=== PATIENT | male | born 1940 | race Caucasian/White ===

== ENCOUNTER → 2016-06-12 | Outpatient (CLI) | payer OTHER, BC ==
[~2016-06-12] MED LIST: AMOX500C3 PO; ASPEC81 PO; CARV3.122 PO; FLV400 PO; LISI-729 PO; LPT/40 PO; OXYB5TAB74 PO
[2016-06-12 12:15] LABS: HEMATOCRIT 43.2 % (42-52); MEAN CELL VOLUME 88.9 fL (80-100); MEAN CORPUSCULAR HEMOGLOBIN 30.7 pg (25-34); MEAN CORPUSCULAR HGB CONC 34.5 g/dl (32-36); MEAN PLATELET VOLUME 11.6 fL (7.4-10.4); PLATELET COUNT 182 K/uL (130-400); RED BLOOD COUNT 4.86 M/uL (4.7-6.1); WHITE BLOOD COUNT 5.73 K/uL (4.8-10.8)
[2016-06-12 12:29] LABS: ALT/SGPT 42 U/L (12-78); BLOOD UREA NITROGEN 15 mg/dl (7-18); BUN/CREATININE RATIO 18.2 (10-20); CALCIUM 8.5 mg/dl (8.5-10.1); CARBON DIOXIDE 27 mmol/L (21-32); CHLORIDE 107 mmol/L (98-107); CHOLESTEROL 149 mg/dl (0-200); CREATININE 0.83 mg/dl (0.60-1.40); GLUCOSE 104 mg/dl (70-99); POTASSIUM 4.2 mmol/L (3.5-5.1); SODIUM 142 mmol/L (136-145); TRIGLYCERIDES 77 mg/dl (0-150); VERY LOW DENSITY LIPOPROT CALC 15 mg/dl
[2016-06-12 12:39] LABS: ALB/GLOB RATIO 0.9 (0.9-2); ALKALINE PHOSPHATASE 106 U/L (45-117); AST/SGOT 31 U/L (15-37); HDL CHOLESTEROL 50 mg/dl; LDL CHOLESTEROL CALCULATED 84 mg/dl; THYROID STIMULATING HORMONE 0.984 uIu/ml (0.300-4.500)
[2016-06-12 13:37] LABS: LYME DISEASE AB IGG NEG (NEG); LYME DISEASE AB IGM NEG (NEG)
[2016-06-12 13:49] LABS: ESTIMATED AVERAGE GLUCOSE 123 mg/dl; HA1C FLAG Normal (Normal)
--- NOTE | 2016-06-16 13:37 | CODING QUERY MEDICAL NECESSITY ---
SUPPORTING DIAGNOSIS NEEDED A supporting diagnosis is required for the test/procedure performed on this patient in order for us to be reimbursed by the patient's insurance. Please provide a supporting diagnosis for the following test/procedure listed below next to the test name along with your signature. *If there is no additional diagnosis for this patient that would support the following test/procedure please document that below next to the test/procedure. Test(s)/Procedure(s) that require a supporting diagnosis: * GLYCATED HEMOGLOBIN DIAGNOSIS: * DOS: 06/12/16 Provider Signature: Date: Thank you Delilah Silver Health Information Management Once completed, please kindly fax back to [phone] For questions please call [phone]
== END | disposition home or self-care (01) ==
LOC: C.LAB1850 10:52
PROVIDERS: ATTEND Family Medicine
DX: I25.10 Atherosclerotic heart disease of native coronary artery without angina pectoris (principal); I10 Essential (primary) hypertension; E78.00 Pure hypercholesterolemia, unspecified; R73.03 Prediabetes; R20.9 Unspecified disturbances of skin sensation

== ENCOUNTER → 2016-07-31 | Outpatient (CLI) | payer OTHER, BC ==
[~2016-07-31] MED LIST changes: +DTR/5 PO; -OXYB5TAB74 PO
== END | disposition home or self-care (01) ==
LOC: C.LAB1850 14:20
PROVIDERS: ATTEND Urology
DX: C61 Malignant neoplasm of prostate (principal)

== ENCOUNTER → 2016-10-24 | Outpatient (CLI) | payer OTHER, BC ==
[2016-10-20 17:40] LABS: BLOOD UREA NITROGEN 25 mg/dl (7-18)
[~2016-10-24] MED LIST changes: -DTR/5 PO; +GADAVIST IV PRN; +OXYB5TAB74 PO
--- NOTE | 2016-10-24 16:47 | DIAGNOSTIC IMAGING REPORT ---
MRI OF THE CERVICAL SPINE WITH AND WITHOUT CONTRAST CLINICAL HISTORY: Right-sided cervical radiculopathy. COMPARISON: Cervical spine radiographs May 24, 2012 TECHNIQUE: Utilizing a 1.5 Zora magnet and dedicated coil, multiplanar, multiecho imaging of the cervical spine was performed before and after intravenous administration of 10 of Gadavist. FINDINGS: Alignment of the cervical spine is anatomic. Vertebral body heights are patent. There is no suspicious marrow replacement. Cervical cord signal and caliber are normal. There is no intracanalicular mass or fluid collection. Note is made of several T1 and T2 hyperintense masses adjacent to the left shoulder which likely reflect lipomas. However, these are partially imaged on this examination. One lesion measures at least 6.4 x 3.8 cm. These contain thin septations. C2-C3: The central canal is patent. There is moderate left and mild right neural foraminal stenosis. C3-C4: There is disc bulge with ligamentous hypertrophy and facet arthrosis. There is moderate narrowing of the central canal. There is severe narrowing of both neural foramen. C4-C5: Central canal is patent. There is moderate right neural foraminal stenosis. There is mild left neural foraminal stenosis. C5-C6: There is minimal disc bulge. Central canal is patent. There are severe bilateral neural foraminal stenosis. C6-C7: Central canal is patent there is severe left and moderate right neural foraminal stenosis. C7-T1: Central canal and neural foramen are patent. IMPRESSION: 1. Moderate central canal stenosis at C3-C4 due to disc bulge, ligamentous hypertrophy and facet arthrosis. No cervical cord signal abnormality. 2. Severe multilevel neural foraminal stenosis due to facet arthrosis and uncovertebral hypertrophy, as detailed above. 3. 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 Electronically signed by: Migel Dalton M.D. 10/24/2016 4:46 PM Dictated Date/Time: 10/24/2016 4:08 PM
== END | disposition home or self-care (01) ==
LOC: C.MRI 13:57
PROVIDERS: ATTEND Psychiatry & Neurology Neurology
DX: M54.12 Radiculopathy, cervical region (principal)

== ENCOUNTER → 2016-12-17 | Outpatient (CLI) | payer OTHER, BC ==
[~2016-12-17] MED LIST changes: -GADAVIST IV PRN
[2016-12-17 12:12] LABS: BASO % 0.4 %; BASO ABS # 0.02 K/uL (0-0.2); COMPLETE YES; EOS % 3.1 %; HEMATOCRIT 44.2 % (42-52); IG% 0.2 %; LYMPH % 31.3 %; LYMPH ABS # 1.71 K/uL (1.2-3.4); MEAN CELL VOLUME 91.1 fL (80-100); MEAN CORPUSCULAR HEMOGLOBIN 31.3 pg (25-34); MEAN CORPUSCULAR HGB CONC 34.4 g/dl (32-36); MEAN PLATELET VOLUME 11.5 fL (7.4-10.4); MONO % 11.3 %; NEUT % 53.7 %; PLATELET COUNT 166 K/uL (130-400); RED BLOOD COUNT 4.85 M/uL (4.7-6.1); WHITE BLOOD COUNT 5.47 K/uL (4.8-10.8)
[2016-12-17 12:27] LABS: ALT/SGPT 40 U/L (12-78); BLOOD UREA NITROGEN 28 mg/dl (7-18); BUN/CREATININE RATIO 32.1 (10-20); CALCIUM 8.7 mg/dl (8.5-10.1); CARBON DIOXIDE 29 mmol/L (21-32); CHLORIDE 106 mmol/L (98-107); CHOLESTEROL 160 mg/dl (0-200); CREATININE 0.86 mg/dl (0.60-1.40); GLUCOSE 97 mg/dl (70-99); POTASSIUM 4.4 mmol/L (3.5-5.1); SODIUM 139 mmol/L (136-145); TRIGLYCERIDES 64 mg/dl (0-150); VERY LOW DENSITY LIPOPROT CALC 13 mg/dl
[2016-12-17 12:31] LABS: ALKALINE PHOSPHATASE 100 U/L (45-117); AST/SGOT 29 U/L (15-37); CHOLESTEROL/HDL RATIO 2.7; HDL CHOLESTEROL 59 mg/dl; LDL CHOLESTEROL CALCULATED 88 mg/dl
[2016-12-17 12:43] LABS: ESTIMATED AVERAGE GLUCOSE 123 mg/dl; HA1C FLAG Normal (Normal)
== END | disposition home or self-care (01) ==
LOC: C.LAB1850 10:59
PROVIDERS: ATTEND Nurse Practitioner Family
DX: I25.10 Atherosclerotic heart disease of native coronary artery without angina pectoris (principal); E78.00 Pure hypercholesterolemia, unspecified; I10 Essential (primary) hypertension; R73.03 Prediabetes

== ENCOUNTER → 2017-02-24 | Outpatient (CLI) | payer OTHER, BC ==
[2016-03-04 13:38] VITALS: BP 157/97; PULSE 50
[~2017-02-24] MED LIST changes: +DTR/5 PO; -OXYB5TAB74 PO
[2017-02-24 13:53] VITALS: BP 137/76; PULSE 55; TEMP 37; O2SAT 97
--- NOTE | 2017-02-24 15:05 | Radiation Oncology Follow-Up ---
Radiation Oncology Follow-Up Date of Visit Feb 24, 2017. 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 He gave an AUA score of 6. Last year he gave a score of 15. He does not take the Ditropan on a regular basis. He states at times he will have occasional urgency. He'll take the medication that will resolve and then she'll stop the medication. He completed and expanded prostate cancer index composite for clinical practice and gave a score of 4 of 12 in urinary incontinence symptoms. He gave a score of 3 of 12 urinary irritation symptoms. He gave a score of 0 of 12 and bowel symptoms. He did not complete the sexual symptoms. He states that this is not a problem. We reviewed the questions about hot flashes. He does not have hot flashes. He does have some mild feeling of depression at times. Any has some mild lack of energy. His total was 9 of 48. He stated he has district plan available should he need it. He did not want a prescription refill today. We reviewed his PSAs which have been excellent. His last PSA was on 07/31/2016. In that was 0.010. Allergies Coded Allergies: No Known Allergies (Verified Allergy, Unknown, NONE, 06/02/08) Home Medications Scheduled Amoxicillin (Amoxil), 1 CAP PO BID Aspirin Enteric Coated (Ecotrin Or Generic *), 81 MG PO DAILY Atorvastatin (Lipitor), 80 MG PO DAILY Carvedilol (Coreg), 3.125 MG PO BID Folic Acid (Folvite *), 1,600 MCG PO DAILY Lisinopril (Prinivil), 20 MG PO DAILY Oxybutynin Chloride (Ditropan), 1 TAB PO BID Review of Systems Gastrointestinal: Symptoms: WNL GI Comments: Takes metamucil; Oral: Symptoms: No Problems Other Oral Symptoms: patient bites the sides of his mouth at times which causes sores Respiratory: Symptoms: WNL, SOB At Rest Respiratory Comments: SHAW caused by heart issues - had aorta replaced Other Respiratory: SOB at rest comes and goes - chronic Urinary: Symptoms: WNL Comments: See AUA & EPIC - goes on and off ditropan Skin: Symptoms: No Problems Physical Exam Vital Signs Date Time Temp Pulse Resp B/P (MAP) Pulse Ox O2 Delivery O2 Flow Rate FiO2 02/24/17 13:53 37.0 55 20 137/76 97 Fatigue: None General Appearance: no apparent distress Eyes: normal inspection, EOMI ENT: normal ENT inspection, hearing grossly normal Respiratory/Chest: lungs clear, no respiratory distress, no accessory muscle use Cardiovascular: regular rate, rhythm, no gallop, + systolic murmur (heard best at the aortic area 2/6) Abdomen: non tender, soft Anal / Rectum: Mild external hemorrhoids. No rectal masses no rectal bleeding. No nodules of the prostate. Extremities: no pedal edema Neurologic/Psychiatric: no motor/sensory deficits, alert Skin: warm/dry Lymphatic: no adenopathy Pain Management Side: Bilateral Pain Location: None Patient Preferred Pain Scale: 0 - 10 Laboratory Studies Test 12/17/16 11:14 White Blood Count 5.47 K/uL (4.8-10.8) Red Blood Count 4.85 M/uL (4.7-6.1) Hemoglobin 15.2 g/dL (14.0-18.0) Hematocrit 44.2 % (42-52) Mean Corpuscular Volume 91.1 fL (80-100) Mean Corpuscular Hemoglobin 31.3 pg (25-34) Mean Corpuscular Hemoglobin Concent 34.4 g/dl (32-36) Platelet Count 166 K/uL (130-400) Mean Platelet Volume 11.5 fL (7.4-10.4) Neutrophils (%) (Auto) 53.7 % Lymphocytes (%) (Auto) 31.3 % Monocytes (%) (Auto) 11.3 % Eosinophils (%) (Auto) 3.1 % Basophils (%) (Auto) 0.4 % Neutrophils # (Auto) 2.94 K/uL (1.4-6.5) Lymphocytes # (Auto) 1.71 K/uL (1.2-3.4) Monocytes # (Auto) 0.62 K/uL (0.11-0.59) Eosinophils # (Auto) 0.17 K/uL (0-0.5) Basophils # (Auto) 0.02 K/uL (0-0.2) RDW Standard Deviation 48.9 fL (36.4-46.3) RDW Coefficient of Variation 14.5 % (11.5-14.5) Immature Granulocyte % (Auto) 0.2 % Immature Granulocyte # (Auto) 0.01 K/uL (0.00-0.02) Sodium Level 139 mmol/L (136-145) Potassium Level 4.4 mmol/L (3.5-5.1) Chloride Level 106 mmol/L (98-107) Carbon Dioxide Level 29 mmol/L (21-32) Anion Gap 4.0 mmol/L (3-11) Blood Urea Nitrogen 28 mg/dl (7-18) Creatinine 0.86 mg/dl (0.60-1.40) Estimated GFR () 96.3 Estimated GFR (Non- 83.1 BUN/Creatinine Ratio 32.1 (10-20) Random Glucose 97 mg/dl (70-99) Estimated Average Glucose 123 mg/dl Hemoglobin A1c 5.9 % (4.5-5.6) Calcium Level 8.7 mg/dl (8.5-10.1) Total Bilirubin 0.7 mg/dl (0.2-1) Aspartate Amino Transferase (AST) 29 U/L (15-37) Alanine Aminotransferase (ALT) 40 U/L (12-78) Alkaline Phosphatase 100 U/L (45-117) Total Protein 7.0 gm/dl (6.4-8.2) Albumin 3.5 gm/dl (3.4-5.0) Globulin 3.5 gm/dl (2.5-4.0) Albumin/Globulin Ratio 1.0 (0.9-2) Triglycerides Level 64 mg/dl (0-150) Cholesterol Level 160 mg/dl (0-200) HDL Cholesterol 59 mg/dl LDL Cholesterol, Calculated 88 mg/dl VLDL Cholesterol, Calculated 13 mg/dl Cholesterol/HDL Ratio 2.7 Assessment & Plan Plan: He'll be due for recheck PSA in July. An order was given to have this performed.. He was unsure as to a follow-up appointment with Dr. Jones. This was very likely occur in July. We asked him to return to our office in 1 year. He may call if he has any questions or concerns in the interim. I also asked him to call if he wanted a refill on the Ditropan which she has been taking intermittently. Total Time In Follow-Up I spent 20 minutes speaking to the patient performing examination. I spent 15 minutes reviewing information and completing this note. Copy To Juan Manuel Early III, CRNP; Pancho Jones MD
== END | disposition home or self-care (01) ==
LOC: C.ONC 13:39
PROVIDERS: ATTEND Physician Assistant Medical
DX: Z08 Encounter for follow-up examination after completed treatment for malignant neoplasm (principal); Z92.3 Personal history of irradiation; Z85.46 Personal history of malignant neoplasm of prostate

== ENCOUNTER → 2017-06-22 | Outpatient (CLI) | payer OTHER, BC ==
[2017-06-22 15:54] LABS: BASO % 0.7 %; BASO ABS # 0.04 K/uL (0-0.2); EOS % 4.3 %; EOS ABS # 0.25 K/uL (0-0.5); HEMATOCRIT 41.9 % (42-52); HEMOGLOBIN 14.1 g/dL (14.0-18.0); IG# 0.01 K/uL (0.00-0.02); LYMPH % 34.1 %; LYMPH ABS # 1.98 K/uL (1.2-3.4); MEAN CELL VOLUME 90.5 fL (80-100); MEAN CORPUSCULAR HEMOGLOBIN 30.5 pg (25-34); MEAN CORPUSCULAR HGB CONC 33.7 g/dl (32-36); MEAN PLATELET VOLUME 10.7 fL (7.4-10.4); MONO % 8.8 %; MONO ABS # 0.51 K/uL (0.11-0.59); NEUT % 51.9 %; NEUT ABS # 3.01 K/uL (1.4-6.5); PLATELET COUNT 212 K/uL (130-400); RED CELL DISTRIBUTION WIDTH CV 14.4 % (11.5-14.5); RED CELL DISTRIBUTION WIDTH SD 47.6 fL (36.4-46.3)
[2017-06-22 16:25] LABS: ALBUMIN 3.4 gm/dl (3.4-5.0); ALT/SGPT 29 U/L (12-78); BLOOD UREA NITROGEN 22 mg/dl (7-18); CALCIUM 8.8 mg/dl (8.5-10.1); CARBON DIOXIDE 32 mmol/L (21-32); CREATININE 0.84 mg/dl (0.60-1.40); GLUCOSE 88 mg/dl (70-99); POTASSIUM 4.4 mmol/L (3.5-5.1); SODIUM 139 mmol/L (136-145)
[2017-06-22 16:28] LABS: ALKALINE PHOSPHATASE 101 U/L (45-117); AST/SGOT 20 U/L (15-37)
== END | disposition home or self-care (01) ==
LOC: C.LAB1850 14:46
PROVIDERS: ATTEND Nurse Practitioner Family
DX: R10.32 Left lower quadrant pain (principal)

== ENCOUNTER → 2017-06-25 | Outpatient (CLI) | payer OTHER, BC ==
[~2017-06-25] MED LIST changes: +OPTIRAY 320 IV PRN
--- NOTE | 2017-06-25 14:47 | DIAGNOSTIC IMAGING REPORT ---
ABD/PELVIS IV AND ORAL CONT CLINICAL HISTORY: 76 years-old Male presenting with R10.32 Abdominal pain, acute, left lower quadrant pain. TECHNIQUE: Multidetector CT of the abdomen and pelvis was performed after the administration of oral and intravenous contrast. IV contrast: 94 mL of Optiray 320. A dose lowering technique was used consistent with the principles of ALARA (as low as reasonably achievable). COMPARISON: None. CT DOSE (mGy.cm): The estimated cumulative dose is 1058.51 mGycm. FINDINGS: Sack Sorter topogram: Median sternotomy wires and prosthetic aortic valve noted. Brachytherapy seeds in the prostate. Lung bases: Minimal basilar opacities, likely atelectasis. Multichamber enlargement of the heart. Aortic valve replacement. No pericardial or pleural effusion. Liver: Congenital hypoplasia of the medial segments of the left hepatic lobe. Biliary: No intrahepatic or extrahepatic biliary ductal dilatation. Gallbladder contains gallstones. Suggestion of gallbladder wall thickening without evidence of distention or pericholecystic inflammatory change, possibly adenomyomatosis. Pancreas: Moderate parenchymal atrophy. Spleen: Normal. Splenule noted. Adrenal glands: Normal. Kidneys and ureters: Multiple parapelvic cysts noted bilaterally. Minimal nonspecific perinephric fat stranding. Renal parenchyma normal. Nonobstructing punctate calculus in the upper pole of the right kidney (series 3 image 174). No hydronephrosis. Ureters normal. Bladder: Significant irregular bladder wall thickening present most pronounced along the dome. Diverticula noted. Pelvic organs: Brachytherapy seeds in the prostate. Bowel: Diverticulosis of the descending and sigmoid colon. Minimal inflammatory change at the level of the junction between the descending and sigmoid colon suggesting early diverticulitis. The appendix is normal. No bowel obstruction. Peritoneal cavity: No free fluid or intraperitoneal gas. Lymph nodes: No enlarged lymph nodes in the abdomen or pelvis. Vasculature: Atherosclerosis of the normal caliber abdominal aorta. IVC patent. Abdominal wall: Fluid noted at the internal ring of the left inguinal canal likely indicating the presence of an encysted hydrocele. Nonspecific subcutaneous edema in the lumbar region. Musculoskeletal: Degenerative changes of the spine. Degenerative changes of the sacroiliac joints and hips also noted. IMPRESSION: 1. Minimal pericolonic fat infiltration at the junction of the descending and sigmoid colon in the setting of diverticulosis raises concern for early diverticulitis. No abscess or CT evidence of anuradha perforation. No bowel obstruction. 2. Cholelithiasis. 3. Nonobstructing punctate right renal calculus. 4. Significant irregularity of the bladder dome, which could relate to chronic outlet obstruction, infectious or post radiation cystitis, or less likely neoplasm. Correlate with urinalysis. Consider urologic consultation as appropriate. Electronically signed by: Ant Rice M.D. 06/25/2017 2:46 PM Dictated Date/Time: 06/25/2017 2:37 PM
== END | disposition home or self-care (01) ==
LOC: C.CTS 13:52
PROVIDERS: ATTEND Nurse Practitioner Family
DX: R10.32 Left lower quadrant pain (principal); K80.20 Calculus of gallbladder without cholecystitis without obstruction; N20.0 Calculus of kidney; R93.3 Abnormal findings on diagnostic imaging of other parts of digestive tract; R93.41 Abnormal radiologic findings on diagnostic imaging of renal pelvis, ureter, or bladder

== ENCOUNTER → 2017-06-30 | Outpatient (CLI) | payer OTHER, BC ==
[~2017-06-30] MED LIST changes: -OPTIRAY 320 IV PRN
== END | disposition home or self-care (01) ==
LOC: C.PATHSPEC 17:30
PROVIDERS: ATTEND Urology
DX: N32.9 Bladder disorder, unspecified (principal)

== ENCOUNTER → 2017-07-06 | Outpatient (CLI) | payer OTHER, BC | END | disposition home or self-care (01) | LOC: C.LAB1850 11:53 | PROVIDERS: ATTEND Urology | DX: C61 Malignant neoplasm of prostate (principal); N32.9 Bladder disorder, unspecified ==

== ENCOUNTER 2021-11-07 21:17 | Inpatient (IN) ==
[2021-11-07 21:54] LABS: Basophils # (auto) 0.03 K/uL (0-0.2); Basophils % (auto) 0.2 %; Eosinophils # (auto) 0.01 K/uL (0-0.50); Eosinophils % (auto) 0.1 %; Hematocrit (blood only) 41.9 % (40.1-51.0); Hemoglobin 13.9 g/dl (14.0-18.0); Immature Granulocytes # (auto) 0.06 K/uL (0.00-0.02); Immature Granulocytes % (auto) 0.4 %; Lymphocytes # (auto) 0.79 K/uL (1.2-3.4); Lymphocytes % (auto) 5.8 %; Mean Corpuscular Hgb Conc 33.2 g/dL (32.0-36.0); Mean Corpuscular Volume 90.5 fL (80.0-100.0); Mean Platelet Volume 10.9 fL (9.4-12.4); Monocytes # (auto) 0.68 K/uL (0.24-0.82); Neutrophils # (auto) 12.09 K/uL (1.4-6.5); Neutrophils % (auto) 88.5 %; Platelet Count 197 K/uL (130-400); RDW Standard Deviation 49.2 fL (36.4-46.3); Red Blood Count 4.63 M/uL (4.63-6.08); White Blood Count 13.66 K/ul (4.8-10.8)
--- NOTE | 2021-11-07 22:11 | Emergency Department Note ---
Impression & Plan Acute pancreatitis, Abdominal pain, Choledocholithiasis, Transaminitis ED Provider Note NAME: TROY TOSCANO AGE: 80 SEX: M : 1940 ARRIVES VIA: Ambulance INFORMANT: Patient ED PROVIDER(S): Francisco Engle DO CHIEF COMPLAINT: abdominal pain HPI: Patient is a an 80-year-old male with past medical history of prostate cancer, irregular heart rate, hypertension, hyperlipidemia, diabetes, depression, CAD, aortic stenosis for abdominal pain. He notes pain started yesterday. It is in the right mid to right lower abdomen. Patient with nausea and 3 episodes of vomiting. No dysuria, urgency, or frequency. Last bowel movement was within the past 24 hours. Eating and drinking does not change the pain. Twisting or turning or bending does not either. His pain has nearly abated at this point. He has no pain is always or not pressing on his abdomen. ROS: See above HPI for pertinent positives & negatives. A total of 10 systems reviewed and were otherwise negative. PAST MEDICAL HISTORY:See Below PAST SURGICAL HISTORY:See Below FAMILY HISTORY:See Below SOCIAL HISTORY:See Below HOME MEDICATIONS:See Below ALLERGIES:See Below VITALS:See Below PHYSICAL EXAMINATION: GENERAL: Sitting up in bed, alert, well appearing, well nourished, no distress, non-toxic EYE EXAM: normal conjunctiva. OROPHARYNX: mucous membranes are moist NECK: supple, no nuchal rigidity, no adenopathy, non-tender LUNGS: Clear to auscultation. Normal chest wall mechanics HEART: no murmurs, S1 normal and S2 normal ABDOMEN: abdomen soft, tender palpation right mid to lower abdomen, normo-active bowel sounds, no masses, no rebound or guarding. UPPER EXTREMITIES: upper extremities are grossly normal. LOWER EXTREMITIES: No pitting edema. NEURO EXAM: Normal sensorium, cranial nerves II-XII grossly intact, normal speech, no gross weakness of arms, no gross weakness of legs. MEDICAL DECISION MAKING: Patient is an 80-year-old male who presents ER for above-stated complaint. IV was established blood was obtained. Labs show mild leukocytosis of 13,000. No significant anemia. BMP with a creatinine 1.4. T bili significantly elevated 6.3. Transaminitis in the 100s. Lipase elevated significantly at 1400. UA was unremarkable. CT abdomen pelvis showed distended gallbladder but no other acute pathology. Based on the elevated bilirubin and transaminitis do favor that this likely choledocholithiasis causing pancreatitis. Patient has no pain again at this time. He was given IV antibiotics updated bedside discussed with Bridgett Petersen for further evaluation. Ultrasound was ordered and pending upon admission. GI and surgery was not consulted CT abdomen pelvis was slowly read as cholelithiasis with suggestion of slight wall thickening of the gallbladder. Triage Nursing notes reviewed. Limited review of prior medical records performed Vital Signs: reviewed and remarkable for HTN Differential diagnosis: Differential diagnoses includes but is not limited to gastritis, peptic ulcer disease, GERD, gallbladder disease, pancreatitis, small bowel obstruction, acute coronary syndrome, pericarditis, ischemic bowel, irritable bowel disease, irritable bowel syndrome, appendicitis, diverticulitis, malignancy, hernia, urinary tract infection, torsion, [/ectopic (if female)], perforation, trauma, infectious. ER treatment provided: See below Diagnostics interpreted by me: ECG: A. fib rate 89 Left axis Has depressions in the high lateral leads Septal Q waves QTC 484 Cardiac Monitoring: An order was placed for continuous cardiac monitoring. The monitor shows a rate of 90 with sinus rhythm. Laboratory studies: As stated above and show below. Imaging studies: CT abdomen pelvis as described above Consultation(s): Discussed with Bridgett Petersen for further evaluation Procedures: none Critical Care: None Past Med/Surg History Medical History Cervical radiculopathy Difficulty reading due to visual problem Former smoker History of snuff use Hyperhomocystinemia Hypertension Hyperthyroidism Prediabetes Prostate cancer (~2006) Prostate cancer Pure hypercholesterolemia PVC (premature ventricular contraction) Surgical History H/O aortic valve repair H/O hernia repair Status post aortic valve replacement with bioprosthetic valve Family History Mother Heart disease Brother Cancer Lung cancer Unknown Prostate cancer Father Prostate cancer Denies family history of Colon cancer Ovarian cancer Myocardial infarction Breast cancer Social History Smoking Status: Former smoker Age Started Using Tobacco: 8; Age Quit Using Tobacco: 75; packs per day: 2.5; Second Hand Exposure: No; Hx Alcohol Use: No Hx Substance Use: No Preferred Language: Dutch Communication Ability: Effective Visual Impairment: No Limitations Hearing Ability: Use of Hearing Aid 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: No marital status: Single Current Living Situation: Alone current occupational status: retired How many Children do You have: 2 Feels Safe at Home: Yes Childhood Exposure to Second-Hand Smoke: Yes Dental Care, Regularly: No Physical Activity Frequency: Does not Exercise Seatbelt Use: never Sunscreen Use: No Do you think of yourself as: straight/heterosexual Assistive Devices: Glasses and Hearing Aid - Bilateral Allergies Allergies Allergy/AdvReac Type Severity Reaction Status Date / Time No Known Drug Allergies Allergy Unknown Verified 11/07/21 22:35 Home Meds Home Medications Medication Instructions Recorded Confirmed amoxicillin 500 mg tablet 2,000 mg PO ONCE PRN Prophylaxis 11/07/21 11/07/21 aspirin 81 mg tablet,delayed 81 mg PO QAM 11/07/21 11/07/21 release fluocinonide 0.05 % topical cream 1 applic topical BID PRN .rash 11/07/21 11/07/21 folic acid 400 mcg tablet 0.4 mg PO QAM 11/07/21 11/07/21 hydrochlorothiazide 25 mg tablet 25 mg PO QAM 11/07/21 11/07/21 pantoprazole 40 mg tablet,delayed 40 mg PO QAM 11/07/21 11/07/21 release (Protonix) Previous Rx's Medication Instructions Recorded atorvastatin 80 mg tablet 80 mg PO HS #90 tabs 02/19/21 bupropion HCl 150 mg tablet,12 hr 150 mg PO BID #180 ea 10/29/21 sustained-release lisinopril 20 mg tablet 20 mg PO BID #180 tabs 10/29/21 Results & Data (ED) Vital Signs Vital Signs - 24 hr 11/07/21 21:35 11/07/21 21:52 11/07/21 23:22 Temperature 36.7 C Temperature Source Oral Pulse Rate 87 Pulse Rate [Finger] 89 Respiratory Rate 20 18 Blood Pressure 142/99 H Blood Pressure [Right Arm] 150/104 H Blood Pressure Mean 113 Blood Pressure Mean [Right Arm] 119 Pulse Oximetry 96 92 93 Oxygen Delivery Method Room Air Room Air Sepsis Recent Fever Within 48 Hours No Sepsis New/Unexplained Change in Mental Status N/A Sepsis Action Taken by Nursing No Action Required Laboratory Data Result diagrams: 11/07/21 21:33 11/07/21 21:33 Lab Results 11/07/21 11/07/21 11/07/21 Range/Units 21:33 21:33 22:38 WBC 13.66 H (4.8-10.8) K/ul RBC 4.63 (4.63-6.08) M/uL Hgb 13.9 L (14.0-18.0) g/dl Hct 41.9 (40.1-51.0) % MCV 90.5 (80.0-100.0) fL MCH 30.0 (25.0-34.0) pg MCHC 33.2 (32.0-36.0) g/dL RDW Std Deviation 49.2 H (36.4-46.3) fL RDW Coeff of Yony 15.0 H (11.5-14.5) % Plt Count 197 (130-400) K/uL MPV 10.9 (9.4-12.4) fL Immature Gran % (Auto) 0.4 % Neut % (Auto) 88.5 % Lymph % (Auto) 5.8 % [place] % (Auto) 5.0 % Eos % (Auto) 0.1 % Baso % (Auto) 0.2 % Neut # (Auto) 12.09 H (1.4-6.5) K/uL Lymph # (Auto) 0.79 L (1.2-3.4) K/uL [place] # (Auto) 0.68 (0.24-0.82) K/uL Eos # (Auto) 0.01 (0-0.50) K/uL Baso # (Auto) 0.03 (0-0.2) K/uL Immature Gran # (Auto) 0.06 H (0.00-0.02) K/uL Sodium 139 (136-145) mmol/L Potassium 4.0 (3.5-5.1) mmol/L Chloride 102 (98-107) mmol/L Carbon Dioxide 29 (21-32) mmol/L Anion Gap 8 (3-11) BUN 33 H (6-23) mg/dl Creatinine 1.43 H (0.6-1.4) mg/dl Est Cr Clr Drug Dosing Not Reportable Est GFR ( Amer) 52.5 ml/min Est GFR (Non-Af Amer) 45.3 ml/min BUN/Creatinine Ratio 23.1 H (10-20) Glucose 111 H (70-99(Fasting)) mg/dl Calcium 9.3 (8.5-10.1) mg/dl Total Bilirubin 6.3 H (0.2-1.0) mg/dl AST 122 H (13-39) U/L ALT 173 H (7-52) U/L Alkaline Phosphatase 261 H (34-104) U/L Total Protein 7.7 (6.0-8.3) gm/dl Albumin 3.9 (3.4-5.0) gm/dl Globulin 3.8 (2.5-4.0) gm/dl Albumin/Globulin Ratio 1.0 (0.9-2) Lipase 1395 H (11-82) U/L Urine Color Dark Yellow Urine Appearance Clear (Clear) Urine pH 5.0 (4.5-7.5) Ur Specific [facility] 1.017 (1.000-1.030) Urine Protein Negative (Negative) Urine Glucose (UA) Negative (Negative) Urine Ketones Trace H (Negative) Urine Blood Trace H (Negative) Urine Nitrite Positive A (Negative) Urine Bilirubin 2+ H (Negative) Urine Urobilinogen Negative (Negative) Ur Leukocyte Esterase Negative (Negative) Urine WBC (Auto) 0 (0-5) /hpf Urine RBC (Auto) 0-4 (0-4) /hpf U Hyaline Cast (Auto) 1-5 (0-5) /lpf U Epithel Cells (Auto) 0-5 (0-5) /lpf Urine Bacteria (Auto) Negative (Negative) Administered Medications Discontinued Medications Piperacillin Sod/Tazobactam Sod (Zosyn) 4.5 gm in 120 mls @ 240 mls/hr IV NOW ONE Stop: 11/08/21 00:54 Last Admin: 11/08/21 00:56 Dose: 240 mls/hr Documented By: BALDOMERO Ioversol (Optiray 320 100ml) 94 ml IV ONCE ONE Stop: 11/07/21 22:38 Last Admin: 11/07/21 22:37 Dose: 94 ml Documented By: PIPPA Morphine Sulfate (Morphine Sulfate 2 Mg/Ml Carp) 1 mg IV NOW STA Stop: 11/08/21 00:46 Last Admin: 11/08/21 01:03 Dose: 1 mg Documented By: BALDOMERO Discharge Plan Visit Data Chief Complaint: Abdominal Pain Stated Complaint: Abdominal Pain ED Provider: Francisco Engle Discharge Problem: Acute pancreatitis, Abdominal pain, Choledocholithiasis, Transaminitis Forms Stand Alone Forms: [facility] Prescriptions Prescriptions: No Action atorvastatin 80 mg tablet 80 mg PO HS Qty: 90 3RF bupropion HCl 150 mg tablet sustained-release 12 hr 150 mg PO BID Qty: 180 2RF lisinopril 20 mg tablet 20 mg PO BID Qty: 180 1RF aspirin [Aspirin Low-Strength] 81 mg Tablet,Delayed Release (Dr/Ec) 81 mg PO QAM folic acid 400 mcg Tablet 0.4 mg PO QAM pantoprazole [Protonix] 40 mg tablet,delayed release (DR/EC) 40 mg PO QAM amoxicillin 500 mg tablet 2,000 mg PO ONCE PRN (Reason: Prophylaxis) Rx Instructions: take 1 hour before dental appointment hydrochlorothiazide 25 mg tablet 25 mg PO QAM fluocinonide 0.05 % Cream 1 applic TOPICAL BID PRN (Reason: .rash) Referrals Referrals: Juan Manuel Early III, CRNP [Primary Care Provider] -
[2021-11-07 22:18] LABS: Anion Gap 8 (3-11); BUN Creatinine Ratio 23.1 (10-20); Blood Urea Nitrogen 33 mg/dl (6-23); Calcium 9.3 mg/dl (8.5-10.1); Carbon Dioxide 29 mmol/L (21-32); Chloride 102 mmol/L (98-107); Est GFR (African American) 52.5 ml/min; Est GFR (Non-African American) 45.3 ml/min; Glucose 111 mg/dl (70-99(Fasting)); Sodium 139 mmol/L (136-145)
[2021-11-07 22:19] LABS: Alanine Aminotransferase 173 U/L (7-52); Albumin Level 3.9 gm/dl (3.4-5.0); Alkaline Phosphatase 261 U/L (34-104); Aspartate Aminotransferase 122 U/L (13-39); Bilirubin,Total 6.3 mg/dl (0.2-1.0); Globulin 3.8 gm/dl (2.5-4.0); Total Protein 7.7 gm/dl (6.0-8.3)
[2021-11-07 22:28] LABS: Lipase 1395 U/L (11-82)
[2021-11-07] MEDS ORDERED: OPTIRAY 320 100ml IV ONE (22:37)
[2021-11-07 22:56] LABS: Appearance Urine Clear (Clear); Bacteria Urine Automated Negative (Negative); Bilirubin Urine 2+ (Negative); Blood Urine Trace (Negative); Color Urine Dark Yellow; Epithelial Cell Urine Auto 0-5 /lpf (0-5); Glucose Urine UA Negative (Negative); Ketones Urine Trace (Negative); Leukocyte Esterase Urine Negative (Negative); Nitrite Urine Positive (Negative); Protein Urine Negative (Negative); RBC Urine Automated 0-4 /hpf (0-4); Specific Gravity Urine 1.017 (1.000-1.030); Urobilinogen Urine Negative (Negative); WBC Urine Automated 0 /hpf (0-5)
[2021-11-08] MEDS ORDERED: PIPERACILLIN/TAZOBACTAM 4.5 GM/120 ML BAG IV ONE (00:25)
[2021-11-08] MEDS ORDERED: MoRPHine SULFATE 2 MG/ML CARP IV STA (00:45)
--- NOTE | 2021-11-08 00:53 | History & Physical Report ---
Date of Service November 08, 2021 Assessment & Plan (1) Abdominal pain: Plan: 80-year-old male presenting with 2 days of severe abdominal pain. Patient afebrile, hemodynamically stable on exam. Nontoxic in appearance but appears to be uncomfortable. Labs are significant for elevated lipase of 1395 as well as abnormal LFTs in a mixed patternpredominantly obstructive (alk phos = 261, T bili = 6.3, AST = 122 and ALT = 173). CT of the abdomen results above. Cholelithiasis with slight gallbladder wall thickening. -Mid to medical Pain control with morphine as needed Nausea control Zofran as needed Zosyn Repeat LFTs in the morning Check gallbladder ultrasound GI consult regarding possible ERCP General surgery consultation pending results of gallbladder ultrasound (2) Acute pancreatitis: Plan: Patient with elevation of lipase 1395. Most likely secondary to gallstone pancreatitis Pain control as above with morphine, Zofran as needed for nausea Normal triglycerides recently LR at 200 mL/h x 2 L (3) Hypertension: Plan: Chronic. Blood pressure mildly elevated at present 150/104 Hold lisinopril in setting of mildly elevated creatinine Hold hydrochlorothiazide Continue to monitor (4) Coronary artery disease: Plan: Patient with nonobstructive CAD. He follows with cardiology. Denies chest pain, palpitations. He does appear to have a left bundle branch on EKG Check troponincheck 2D echo We will hold aspirin for now Hold atorvastatin Hold lisinopril Consider cardiology consultation (5) Left bundle branch block: Plan: Patient denies chest pain Check troponin Check 2D echo (6) Pure hypercholesterolemia: Plan: Chronic. Holding atorvastatin for now History of Present Illness Chief Complaint: Abdominal pain Primary Care Provider: Juan Manuel Early III, LIZ Kermit Rogers is a pleasant 80-year-old male with history of hypertension, hyperlipidemia, hypothyroidism presenting with 1 day of abdominal pain. Patient reports the pain is severe located in the midepigastric area as well as diffusely across the lower abdomen. The pain began yesterday and resolved after several hours. Then began again today after a meal. Patient thought possibly he had eaten something questionable therefore self-induced vomiting x3 episodes with no improvement in abdominal pain. Patient denies fever, chills, chest pa in, cough, shortness of breath. Denies nausea or diarrhea. He does have baseline dyspnea on exertion which he states is stable. Denies change in color of his skin or eyes. Does note that his urine today was very dark and tea colored. He is unaware of any liver or gallbladder disease. Has never had pancreatitis. In the ER he is afebrile, hemodynamic stable, no acute distress Allergies Allergy/AdvReac Type Severity Reaction Status Date / Time No Known Drug Allergies Allergy Unknown Verified 11/07/21 22:35 Home Medications Medication Instructions Recorded Confirmed Type atorvastatin 80 mg tablet 80 mg PO HS #90 tabs 02/19/21 11/07/21 Rx bupropion HCl 150 mg tablet,12 hr 150 mg PO BID #180 ea 10/29/21 11/07/21 Rx sustained-release lisinopril 20 mg tablet 20 mg PO BID #180 tabs 10/29/21 11/07/21 Rx amoxicillin 500 mg tablet 2,000 mg PO ONCE PRN Prophylaxis 11/07/21 11/07/21 History aspirin 81 mg tablet,delayed 81 mg PO QAM 11/07/21 11/07/21 History release fluocinonide 0.05 % topical cream 1 applic topical BID PRN .rash 11/07/21 11/07/21 History folic acid 400 mcg tablet 0.4 mg PO QAM 11/07/21 11/07/21 History hydrochlorothiazide 25 mg tablet 25 mg PO QAM 11/07/21 11/07/21 History pantoprazole 40 mg tablet,delayed 40 mg PO QAM 11/07/21 11/07/21 History release (Protonix) Past Med/Surg History Medical History Cervical radiculopathy Difficulty reading due to visual problem Former smoker History of snuff use Hyperhomocystinemia Hypertension Hyperthyroidism Prediabetes 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, 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, clinical stage TIc Status post biopsies, biopsy stage TIIa Wood grade 3+3 Status post seed implant with cesium 131 as boost 12/08/2006 Status post completion of IMRT/IGRT 02/26/2007" Prostate cancer Pure hypercholesterolemia PVC (premature ventricular contraction) Surgical History H/O aortic valve repair H/O hernia repair Status post aortic valve replacement with bioprosthetic valve Family History Mother Heart disease Brother Cancer Lung cancer Unknown Prostate cancer Father Prostate cancer Denies family history of Colon cancer Ovarian cancer Myocardial infarction Breast cancer Social History Smoking Status: Former smoker Age Started Using Tobacco: 8; Age Quit Using Tobacco: 75; packs per day: 2.5; Second Hand Exposure: No; Hx Alcohol Use: No Hx Substance Use: No Preferred Language: Welsh Communication Ability: Effective Visual Impairment: No Limitations Hearing Ability: Use of Hearing Aid 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 marital status: Single Current Living Situation: Alone current occupational status: retired How many Children do You have: 2 Feels Safe at Home: Yes Childhood Exposure to Second-Hand Smoke: Yes Dental Care, Regularly: No Physical Activity Frequency: Does not Exercise Seatbelt Use: never Sunscreen Use: No Do you think of yourself as: straight/heterosexual Assistive Devices: Glasses and Hearing Aid - Bilateral Review of Systems Review of Systems: All systems reviewed & are unremarkable except as noted in HPI & below Physical Exam Physical Exam: General: patient resting comfortably, NAD, non-toxic in appearance, AA&O x 4 Skin: warm, dry, intact, appears to mildly jaundiced HEENT: NC/AT, PERRL, EOMI, mild scleral icterus, conjunctiva without injection, external ear normal to inspection and nontender, nares patent, moist mucus membranes, dentures in place, no oropharyngeal lesions, neck supple, trachea midline, no LAD, no thyromegaly, no JVD Heart: +S1/S2, regular with frequent ectopy Lungs: equal air entry bilaterally, no rales/rhonchi/wheezes Abd: +BS, soft, nondistended, diffusely tender in the epigastric and upper abdomen with voluntary guarding Ext: warm, 2+ pulses in UE/LE bilaterally, no clubbing/cyanosis or edema Neuro: nonfocal, patient AA&O x 4, speech intact, no facial droop, moving all extremities on command with equal strength 5/5 Results & Data Results & Data ([facility]) Vital Signs (Past 12 Hours) Vital Signs Temp Pulse Pulse Resp BP BP Pulse Ox 11/07/21 23:22 89 18 150/104 H 93 07/28/22 21:52 92 11/07/21 21:35 36.7 C 87 20 142/99 H 96 O2 Del Method 11/07/21 23:22 Room Air 11/07/21 21:52 Room Air 11/07/21 21:35 Laboratory Results Laboratory Results WBC 13.66 K/ul (4.8-10.8) H 11/07/21 21:33 RBC 4.63 M/uL (4.63-6.08) 11/07/21 21:33 Hgb 13.9 g/dl (14.0-18.0) L 11/07/21 21:33 Hct 41.9 % (40.1-51.0) 11/07/21 21: MCV 90.5 fL (80.0-100.0) 11/07/21 21: MCH 30.0 pg (25.0-34.0) 11/07/21 21: MCHC 33.2 g/dL (32.0-36.0) 11/07/21 21:33 RDW Std Deviation 49.2 fL (36.4-46.3) H 11/07/21 21:33 RDW Coeff of Yony 15.0 % (11.5-14.5) H 11/07/21 21: Plt Count 197 K/uL (130-400) 11/07/21 21:33 MPV 10.9 fL (9.4-12.4) 11/07/21 21:33 Immature Gran % (Auto) 0.4 % 11/07/21 21: Neut % (Auto) 88.5 % 11/07/21 21: Lymph % (Auto) 5.8 % 11/07/21 21:33 [place] % (Auto) 5.0 % 11/07/21 21:33 Eos % (Auto) 0.1 % 11/07/21 21:33 Baso % (Auto) 0.2 % 11/07/21 21: Neut # (Auto) 12.09 K/uL (1.4-6.5) H 11/07/21 21:33 Lymph # (Auto) 0.79 K/uL (1.2-3.4) L 11/07/21 21:33 [place] # (Auto) 0.68 K/uL (0.24-0.82) 11/07/21 21:33 Eos # (Auto) 0.01 K/uL (0-0.50) 11/07/21 21:33 Baso # (Auto) 0.03 K/uL (0-0.2) 11/07/21 21:33 Immature Gran # (Auto) 0.06 K/uL (0.00-0.02) H 11/07/21 21:33 Sodium 139 mmol/L (136-145) 11/07/21 21:33 Potassium 4.0 mmol/L (3.5-5.1) 11/07/21 21:33 Chloride 102 mmol/L (98-107) 11/07/21 21:33 Carbon Dioxide 29 mmol/L (21-32) 11/07/21 21:33 Anion Gap 8 (3-11) 11/07/21 21:33 BUN 33 mg/dl (6-23) H 11/07/21 21:33 Creatinine 1.43 mg/dl (0.6-1.4) H 11/07/21 21:33 Est Cr Clr Drug Dosing Not Reportable 11/07/21 21:33 Est GFR ( Amer) 52.5 ml/min 11/07/21 21:33 Est GFR (Non-Af Amer) 45.3 ml/min 11/07/21 21:33 BUN/Creatinine Ratio 23.1 (10-20) H 11/07/21 21:33 Glucose 111 mg/dl (70-99(Fasting)) H 11/07/21 21:33 Calcium 9.3 mg/dl (8.5-10.1) 11/07/21 21:33 Total Bilirubin 6.3 mg/dl (0.2-1.0) H 11/07/21 21:33 AST 122 U/L (13-39) H 11/07/21 21:33 ALT 173 U/L (7-52) H 11/07/21 21:33 Alkaline Phosphatase 261 U/L (34-104) H 11/07/21 21:33 Total Protein 7.7 gm/dl (6.0-8.3) 11/07/21 21:33 Albumin 3.9 gm/dl (3.4-5.0) 11/07/21 21:33 Globulin 3.8 gm/dl (2.5-4.0) 11/07/21 21:33 Albumin/Globulin Ratio 1.0 (0.9-2) 11/07/21 21:33 Lipase 1395 U/L (11-82) H 11/07/21 21:33 Urine Color Dark Yellow 11/07/21 22:38 Urine Appearance Clear (Clear) 11/07/21 22:38 Urine pH 5.0 (4.5-7.5) 11/07/21 22:38 Ur Specific [place] 1.017 (1.000-1.030) 11/07/21 22:38 Urine Protein Negative (Negative) 11/07/21 22:38 Urine Glucose (UA) Negative (Negative) 11/07/21 22:38 Urine Ketones Trace (Negative) H 11/07/21 22:38 Urine Blood Trace (Negative) H 11/07/21 22:38 Urine Nitrite Positive (Negative) A 11/07/21 22:38 Urine Bilirubin 2+ (Negative) H 11/07/21 22:38 Urine Urobilinogen Negative (Negative) 11/07/21 22:38 Ur Leukocyte Esterase Negative (Negative) 11/07/21 22:38 Urine WBC (Auto) 0 /hpf (0-5) 11/07/21 22:38 Urine RBC (Auto) 0-4 /hpf (0-4) 11/07/21 22:38 U Hyaline Cast (Auto) 1-5 /lpf (0-5) 11/07/21 22:38 U Epithel Cells (Auto) 0-5 /lpf (0-5) 11/07/21 22:38 Urine Bacteria (Auto) Negative (Negative) 11/07/21 22:38 SARS-CoV-2, RNA, NAAT NEGATIVE (NEGATIVE) 11/08/21 01:[address] abdomen and pelvis with IV contrastPer stat rad: The heart is large. Lung bases are clear. Liver intact. Multiple gallstones. Mildly prominent gallbladder wall. Pancreas, spleen and adrenals are intact. Bilateral renal cysts. Bladder right-sided diverticulum. Prostate radiation seeds. Diverticulosis. Normal appendix. No adenopathy, free fluid or free air. Atherosclerosis. DJD. Comparison June 25, 2017 Impression: Cholelithiasis with suggestion of slight wall thickening. Consider gallbladder ultrasound to exclude acute cholecystitis. ECG Additional Comments: EKG with atrial fibrillation, left axis deviation, left bundle branch block. Left bundle branch block new from previous EKG [id number] Code Status & VTE Plan VTE Prophylaxis Plan VTE Prophylaxis will be ordered: Yes PG Care Time/CCT Total # of Minutes Spent Total Time Spent with Patient: Total time spent is greater than 50% in coordination of care (as documented) at patient's floor/unit and/or counseling patient: Coding Level of Care Code 61063 Initial Inpt Care Lvl 3 Diagnoses Abdominal pain R10.9 Acute pancreatitis K85.90 Hypertension I10 Hypertension type: essential hypertension Coronary artery disease I25.10 Coronary Disease-Associated Artery/Lesion type: [place] artery [place] vs. transplanted heart: [place] heart Associated angina: without angina Left bundle branch block I44.7 Pure hypercholesterolemia E78.00 (1) Hypertension Hypertension type: essential hypertension Qualified Code(s): I10 - Essential (primary) hypertension (2) Coronary artery disease Coronary Disease-Associated Artery/Lesion type: [place] artery [place] vs. transplanted heart: [place] heart Associated angina: without angina Qualified Code(s): I25.10 - Atherosclerotic heart disease of [place] coronary artery without angina pectoris
[2021-11-08] MEDS ORDERED: ONDANSETRON INJ 2 MG/ML 2 ML VIAL IV PRN ×2 (02:24→14:57)
[2021-11-08] MEDS ORDERED: DOCUSATE SODIUM 100 MG CAP PO PRN (02:24)
[2021-11-08] MEDS ORDERED: MoRPHine SULFATE 2 MG/ML CARP IV PRN ×2 (02:24)
[2021-11-08] MEDS ORDERED: ACETAMINOPHEN 325 MG TAB PO PRN (02:24)
[2021-11-08 02:32] LABS: Troponin I High Sensitivity 18.2 pg/ml (0-20)
[2021-11-08] MEDS: LACTATED RINGER'S 1,000 ML IV SCH ×4 (03:13→20:34)
[2021-11-08] MEDS: PIPERACILLIN/TAZOBACTAM 3.375 GM in DEXTROSE 5% 100 ML IV SCH ×3 (06:15→21:50)
--- NOTE | 2021-11-08 07:01 | Ultrasound Report ---
ABDOMINAL ULTRASOUND, RIGHT UPPER QUADRANT HISTORY: Right upper quadrant pain. ? Choledocholithiasis. COMPARISON: Abdomen and pelvis CT 10/30/2021. FINDINGS: Pancreas: The pancreatic head and tail are obscured by overlying bowel gas. The remaining portions of the pancreas are within normal limits. Liver: Unremarkable. Gallbladder: Multiple gallstones and a small amount of sludge. Gallbladder wall is mildly thickened m easuring up to 3.5 mm. Negative sonographic Castaneda sign. CBD: 5 mm. Right kidney: No hydronephrosis. A 12 mm upper pole cyst. IMPRESSION: 1. Multiple gallstones and mild gallbladder wall thickening. However, there is a negative sonographic Castaneda sign. An early acute cholecystitis cannot be excluded. Consider follow-up nuclear medicine HI DA scan. 2. A 12 mm right renal cyst. ACT 112: Negative or not required by law. Electronically signed by: Mendoza Uriostegui M.D. 11/08/2021 7:00 AM
--- NOTE | 2021-11-08 08:05 | CT Scan Report ---
ABDOMEN AND PELVIS CT WITH IV CONTRAST CT DOSE: 933.18 mGy.cm HISTORY: Acute generalized abdominal pain abd pain TECHNIQUE: Multiaxial CT images of the abdomen and pelvis were performed following the IV administrat ion of 94 cc of Optiray, A dose lowering technique was utilized adhering to the principles of ALARA. COMPARISON STUDY: CT abdomen and pelvis 06/25/2017 FINDINGS: Cardiomegaly. Prior median sternotomy with aortic valvular prosthesis. Mild subsegmental bi basilar atelectasis/scarring. There is no pneumatosis or pneumoperitoneum. The spleen, mildly atrophic pancreas and adrenal glands are unremarkable. Cholelithiasis with mild ga llbladder wall thickening and trace pericholecystic stranding. Unremarkable liver. Mild cortical thinning of the kidneys with mild bilateral perinephric stranding. There are a few smal l renal sinus cysts noted bilaterally. There are a few subcentimeter renal hypodensities which are to o small to characterize. 1.2 cm cyst of the superior pole right kidney. No renal or ureteral calculi or hydronephrosis identified. Brachytherapy seeds are noted within the mildly enlarged prostate. Urin petr bladder wall thickening with trabeculation. Diverticulum of the urinary bladder measure up to 3.6 cm on the right. Atherosclerosis of the abdominal aorta without aneurysm. There is no lymphadenopath y. No bowel obstruction or bowel wall thickening. Colonic diverticulosis. Normal appendix. Tiny fat fill ed periumbilical hernia. Degenerative changes of the spine, pelvis and hips. Subacute appearing nondi splaced fracture of the posterior bilateral 12th ribs and L1 transverse processes. Mild generalized b jovanna wall edema. IMPRESSION: 1. Cholelithiasis with mild gallbladder wall thickening and pericholecystic stranding is suspicious f or acute cholecystitis. Correlate with clinical exam findings. 2. No bowel obstruction or bowel wall thickening. 3. Colonic diverticulosis. 4. Evidence of chronic bladder outlet obstruction. 5. Additional findings as above. ACT 112: Negative or not required by law. The above report was generated using voice recognition software. It may contain grammatical, syntax o r spelling errors. Electronically signed by: Quinton Wilde M.D. 11/08/2021 8:03 AM
[2021-11-08] MEDS: buPROPion SR 150 MG TABCR PO SCH ×2 (08:31→20:33)
[2021-11-08] MEDS: PANTOprazole 40 MG TAB PO SCH (08:32)
--- NOTE | 2021-11-08 09:17 | Gastrointestinal Consultation ---
Date of Consultation November 08, 2021 Assessment & Plan (1) Choledocholithiasis: (2) Acute pancreatitis: Pt is a 80 yo male w jaundice, abd pain, n/v symptoms noted to have elevated LFTs, lipase and abd imaging studies showing cholelithiasis w gallbladder wall thickening, CBD 5mm. Suspect cholecystitis, choledocholithiasis, gallstone pancreatitis. - NPO - IV antibx - LR IVF support - Plan for EUS/ERCP by Dr. Alfaro in OR today - Consult Surgery to eval for possible cholecystectomy Supervising Physician Co-Signing Physician Notes I performed a history and physical examination of the patient today, including specifically on physical exam - soft abdomen. I have discussed the patient's management with the advanced practitioner. Please refer to the nurse practitioner's note for the documented findings and plan of care. EUS/ERCP Patient was explained in detail regarding risks, benefits, limitations and alternatives of the above endoscopic procedure. Risks of intravenous sedation used for procedure were also explained. Risks include, but not limited to perforation, bleeding, infection, respiratory distress, cardiac arrest and . Patient is also aware about the possibility of missed lesion. Patient's questions were answered. The patient verbalized understanding the information and agreed to undergo the procedure. History of Present Illness Reason for Consultation: Eval for ERCP Requesting Physician: Dr. Desiree Mullins Attending Physician: Dr. Levi Alfaro History of Present Illness Pt is a 80 yo male w hx of HTN, HLD, hypothyroidism, aortic valve replacement on ASA (no anticoags) who presented to ED w c/o diffuse abd pain x 2 days. He had associated n/v. Denies fever, chills, CP, SOB. He noticed oysterman colored stools and dark urine. On evaluation, he was found to have leukocytosis, w elevated LFTs (particularly Tbili of 6) and lipase. Abd imaging studies w CT and u/s showed signs of gallbladder wall thickening, stone and CBD of 5mm. Last food intake was dinner yesterday. Allergies Allergy/AdvReac Type Severity Reaction Status Date / Time No Known Drug Allergies Allergy Unknown Verified 11/07/21 22:35 Home Medications Medication Instructions Recorded Confirmed Type atorvastatin 80 mg tablet 80 mg PO HS #90 tabs 02/19/21 11/07/21 Rx bupropion HCl 150 mg tablet,12 hr 150 mg PO BID #180 ea 10/29/21 11/07/21 Rx sustained-release lisinopril 20 mg tablet 20 mg PO BID #180 tabs 10/29/21 11/07/21 Rx amoxicillin 500 mg tablet 2,000 mg PO ONCE PRN Prophylaxis 11/07/21 11/07/21 History aspirin 81 mg tablet,delayed 81 mg PO QAM 11/07/21 11/07/21 History release fluocinonide 0.05 % topical cream 1 applic topical BID PRN .rash 11/07/21 11/07/21 History folic acid 400 mcg tablet 0.4 mg PO QAM 11/07/21 11/07/21 History hydrochlorothiazide 25 mg tablet 25 mg PO QAM 11/07/21 11/07/21 History pantoprazole 40 mg tablet,delayed 40 mg PO QAM 11/07/21 11/07/21 History release (Protonix) Patient History Medical History Cervical radiculopathy Difficulty reading due to visual problem Former smoker History of snuff use Hyperhomocystinemia Hypertension Hyperthyroidism Prediabetes 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, 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, clinical stage TIc Status post biopsies, biopsy stage TIIa [place] grade 3+3 Status post seed implant with cesium 131 as boost 12/08/2006 Status post completion of IMRT/IGRT 02/26/2007" Prostate cancer Pure hypercholesterolemia PVC (premature ventricular contraction) Surgical History H/O aortic valve repair H/O hernia repair Status post aortic valve replacement with bioprosthetic valve Family History Mother Heart disease Brother Cancer Lung cancer Unknown Prostate cancer Father Prostate cancer Denies family history of Colon cancer Ovarian cancer Myocardial infarction Breast cancer Social History Smoking Status: Former smoker Age Started Using Tobacco: 8; Age Quit Using Tobacco: 75; packs per day: 2.5; Second Hand Exposure: No; Hx Alcohol Use: No Hx Substance Use: No Preferred Language: [place] Communication Ability: Effective Visual Impairment: No Limitations Hearing Ability: Use of Hearing Aid 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 marital status: / Current Living Situation: Alone current occupational status: retired How many Children do You have: 2 Feels Safe at Home: Yes Childhood Exposure to Second-Hand Smoke: Yes Dental Care, Regularly: No Physical Activity Frequency: Does not Exercise Seatbelt Use: never Sunscreen Use: No Do you think of yourself as: straight/heterosexual Assistive Devices: Bedside Commode Review of Systems Review of Systems: All systems reviewed & are unremarkable except as noted in HPI & below Physical Exam Constitutional: WD/WN, vitals as above well groomed, cooperative and comfortable Eyes: PERRL, conjunctivae normal, anicteric sclerae ENMT: external ear and nose normal, oropharynx normal Respiratory: normal respiratory effort, lungs clear to auscultation Cardiovascular: RRR, no murmur, no edema Gastrointestinal (Abdomen): diffuse tenderness, soft, BS hypoactive Skin: no rashes, warm and dry + jaundice Neurologic: Motor/Sensory: no asterixis Psychiatric: A+Ox3, euthymic affect Lymphatic: no lymphedema Results & Data ([facility]) Vital Signs (Past 12 Hours) Vital Signs Temp Pulse Pulse Resp BP BP Pulse Ox 11/08/21 08:30 71 18 141/81 H 95 11/08/21 02:00 80 18 125/86 90 11/07/21 23:22 89 18 150/104 H 93 11/07/21 21:52 92 11/07/21 21:35 36.7 C 87 20 142/99 H 96 O2 Del Method 11/08/21 08:30 Room Air 11/08/21 02:00 Room Air 11/07/21 23:22 Room Air 11/07/21 21:52 Room Air 11/07/21 21:35
--- NOTE | 2021-11-08 10:12 | Surgery Consultation ---
Date of Consultation November 08, 2021 Assessment & Plan (1) Choledocholithiasis: ERCP today cardiac eval pending mild pancreatitis eventual lap ish, will discuss further Supervising Physician Co-Signing Physician Notes Patient seen and examined, labs and imaging reviewed, agree with above. 80 y/o male admitted with choledocholithiasis and pancreatitis, cholelithiasis with possible cholecystitis. Feeling better, scheduled for ERCP. Prior inguinal hernia repair. afvss, abd soft, mildly ttp in epigastrium and RUQ. wbc mild elevation, tbili 6.2, lipase 1300. ERCP today, possible cholecystectomy however depends on timing. Could perform as outpatient next week or while in patient if not improved. Continue abx, surgery will follow. History of Present Illness Attending Physician: Desiree Mullins DO History of Present Illness 80 y/o male with 2 days persistent epigastric pain, nausea and vomiting. Has been having these episodes every few days for the past month but usually resolves within a few hours. Not had much to eat or drink in past 24 hours. Scheduled for ERCP today. Allergies Allergy/AdvReac Type Severity Reaction Status Date / Time No Known Drug Allergies Allergy Unknown Verified 11/07/21 22:35 Home Medications Medication Instructions Recorded Confirmed Type atorvastatin 80 mg tablet 80 mg PO HS #90 tabs 02/19/21 11/07/21 Rx bupropion HCl 150 mg tablet,12 hr 150 mg PO BID #180 ea 10/29/21 11/07/21 Rx sustained-release lisinopril 20 mg tablet 20 mg PO BID #180 tabs 10/29/21 11/07/21 Rx amoxicillin 500 mg tablet 2,000 mg PO ONCE PRN Prophylaxis 11/07/21 11/07/21 History aspirin 81 mg tablet,delayed 81 mg PO QAM 11/07/21 11/07/21 History release fluocinonide 0.05 % topical cream 1 applic topical BID PRN .rash 11/07/2111/07 History folic acid 400 mcg tablet 0.4 mg PO QAM 11/07/21 11/07/21 History hydrochlorothiazide 25 mg tablet 25 mg PO QAM 11/07/21 11/07/21 History pantoprazole 40 mg tablet,delayed 40 mg PO QAM 11/07/21 11/07/21 History release (Protonix) Patient History Medical History Cervical radiculopathy Difficulty reading due to visual problem Former smoker History of snuff use Hyperhomocystinemia Hypertension Hyperthyroidism Prediabetes 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, 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, clinical stage TIc Status post biopsies, biopsy stage TIIa [place] grade 3+3 Status post seed implant with cesium 131 as boost 12/08/2006 Status post completion of IMRT/IGRT 02/26/2007" Prostate cancer Pure hypercholesterolemia PVC (premature ventricular contraction) Surgical History H/O aortic valve repair H/O hernia repair Status post aortic valve replacement with bioprosthetic valve Family History Mother Heart disease Brother Cancer Lung cancer Unknown Prostate cancer Father Prostate cancer Denies family history of Colon cancer Ovarian cancer Myocardial infarction Breast cancer Social History Smoking Status: Former smoker Age Started Using Tobacco: 8; Age Quit Using Tobacco: 75; packs per day: 2.5; Second Hand Exposure: No; Hx Alcohol Use: No Hx Substance Use: No Preferred Language: Yakut Communication Ability: Effective Visual Impairment: No Limitations Hearing Ability: Use of Hearing Aid Supervisor [employer] Required: No marital status: Single Current Living Situation: Alone current occupational status: retired How many Children do You have: 2 Feels Safe at Home: Yes Childhood Exposure to Second-Hand Smoke: Yes Dental Care, Regularly: No Physical Activity Frequency: Does not Exercise Seatbelt Use: never Sunscreen Use: No Do you think of yourself as: straight/heterosexual Assistive Devices: Glasses and Hearing Aid - Bilateral Review of Systems Constitutional: no fever, no chills, no anorexia and no weight loss Respiratory: no cough and no dyspnea Cardiovascular: no chest pain Gastrointestinal: + abdominal pain, + nausea and + vomiting; no bloating Physical Exam Constitutional: WD/WN, vitals as above Respiratory: normal respiratory effort Cardiovascular: Rate/Rhythm: regular rate Gastrointestinal (Abdomen): Inspection/Auscultation: + abdomen distended (minimal) Percussion/Palpation: + abdomen tender (epigastric) and abdomen soft Skin: no rashes, warm and dry Results & Data ([facility]) Vital Signs (Past 12 Hours) Vital Signs Pulse Resp BP Pulse Ox O2 Del Method 11/08/21 08:30 71 18 141/81 H 95 Room Air 11/08/21 02:00 80 18 125/86 90 Room Air 11/07/21 23:22 89 18 150/104 H 93 Room Air PG Care Time/CCT Total # of Minutes Spent Total Time Spent with Patient: Total time spent is greater than 50% in coordination of care (as documented) at patient's floor/unit and/or counseling patient: Coding Level of Care Code 66096 Initial Inpt Care Lvl 1 Diagnoses Choledocholithiasis K80.50
[2021-11-08 10:14] LABS: INR 1.2 (0.9-1.1); Prothrombin Time 12.3 Seconds (9.0-12.0)
--- NOTE | 2021-11-08 10:36 | Hospitalist Progress Note ---
Date of Service November 08, 2021 Assessment & Plan (1) Abdominal pain: Plan: 80-year-old male with history of hypertension, hyperlipidemia, hypothyroidism presenting with 1 day of abdominal pain. (1) Abdominal pain: 80-year-old male presenting with 2 days of severe abdominal pain. Patient afebrile, hemodynamically stable on exam. Nontoxic in appearance but appears to be uncomfortable. Labs are significant for elevated lipase of 1395 as well as abnormal LFTs in a mixed patternpredominantly obstructive (alk phos = 261, T bili = 6.3, AST = 122 and ALT = 173). CT of the abdomen results above. Cholelithiasis with slight gallbladder wall thickening. PRN morphine, zofran started on Zosyn GI consulted, ERCP today, NPO General surgery consulted cholecystectomy to be discussed further (2) Acute pancreatitis: Patient with elevation of lipase 1395. Most likely secondary to gallstone pancreatitis Pain control as above with morphine, Zofran as needed for nausea Normal triglycerides recently received LR x 2 L (3) Hypertension: Chronic. Blood pressure mildly elevated at present 150/104 Hold lisinopril in setting of mildly elevated creatinine Hold hydrochlorothiazide Continue to monitor (4) Coronary artery disease: Patient with nonobstructive CAD. He follows with cardiology. Denies chest pain, palpitations. He does appear to have a left bundle branch on EKG troponin wnl We will hold aspirin for now Hold atorvastatin Hold lisinopril (5) Left bundle branch block: Patient denies chest pain troponin wnl (6) Pure hypercholesterolemia: Chronic. Holding atorvastatin for now FENa: NPO Code Status: Full DVT PPX: scds Dispo: med/surg Lucy Rangel Do PGY 2, FCM (2) Acute pancreatitis: (3) Hypertension: (4) Coronary artery disease: (5) Left bundle branch block: (6) Pure hypercholesterolemia: Admission and Anticipated Discharge Date Admission Date: November 08, 2021 Supervising Physician Co-Signing Physician Notes Patient seen and examined independently of PGY-2 Dr. Rangel. Agree with history, exam findings, assessment and plan of care as outlined. In brief, Mr. Rogers is an 80 year old male with history of HTN, CAD admitted with choledocholithiasis and acute pancreatitis. VS and nursing notes reviewed. Labs and imaging reviewed. 1. choledocholithiasis. Obstructive pattern, US with mild gallbaldder thickening. s/p ERCP and lap ish. Appreciate gen surg and GI recs. Post- operative pain management per general surgery. 2. acute pancreatitis. s/p IVF resuscitation and ERCP, lap ish. 3. CATRACHITO. IVFs. trend Cr and eGFR. 4. HTN. Holding lisinopril and HCTZ for now until Cr improves. 5. CAD. holding statin and ASA for now; can restart as liver tests normalize. Dispo: pending clinical improvement. Subjective Patient seen at bedside, calm comfortable cooperative. Patient understands he is getting an ERCP later today with possible cholecystectomy later, understands these procedures are necessary for resolving his current pain and preventing future gallstones. Patient states he does not want to be discharged on any opioids, does not want to get addicted to pain medication. Otherwise no acute concerns at this time. Review of Systems Review of Systems: Negative fever chills Negative headache dizziness Negative chest pain palpitations SOB Negative nausea vomitting diarrhea constipation Negative numbness tingling rash swelling Physical Exam Constitutional: WD/WN, vitals as above Eyes: PERRL, conjunctivae normal, anicteric sclerae ENMT: external ear and nose normal, oropharynx normal Neck: trachea midline, no thyromegaly Respiratory: normal respiratory effort, lungs clear to auscultation Cardiovascular: RRR, no murmur, no edema Chest (Breasts): Chest: normal inspection of chest Gastrointestinal (Abdomen): Inspection/Auscultation: abdomen normal to inspection Percussion/Palpation: + abdomen tender and abdomen soft Skin: no rashes, warm and dry Results & Data Results & Data ([facility]) Vital Signs (Past 12 Hours) Vital Signs Pulse Resp BP Pulse Ox O2 Del Method 11/08/21 08:30 71 18 141/81 H 95 Room Air 11/08/21 02:00 80 18 125/86 90 Room Air 11/07/21 23:22 89 18 150/104 H 93 Room Air Diagnostic Findings Laboratory Results WBC 13.66 K/ul (4.8-10.8) H 11/07/21 21:33 RBC 4.63 M/uL (4.63-6.08) 11/07/21 21:33 Hgb 13.9 g/dl (14.0-18.0) L 11/07/21 21:33 Hct 41.9 % (40.1-51.0) 11/07/21 21: MCV 90.5 fL (80.0-100.0) 11/07/21 21: MCH 30.0 pg (25.0-34.0) 11/07/21 21: MCHC 33.2 g/dL (32.0-36.0) 11/07/21: RDW Std Deviation 49.2 fL (36.4-46.3) H 11/07/21: RDW Coeff of Yony 15.0 % (11.5-14.5) H 11/07/21: Plt Count 197 K/uL (130-400) 11/07/21 21: MPV 10.9 fL (9.4-12.4) 11/07/21 21: Immature Gran % (Auto) 0.4 % 11/07/21: Neut % (Auto) 88.5 % 11/07/21: Lymph % (Auto) 5.8 % 11/07/21: [place] % (Auto) 5.0 % 11/07/21 21: Eos % (Auto) 0.1 % 11/07/21: Baso % (Auto) 0.2 % 11/07/21: Neut # (Auto) 12.09 K/uL (1.4-6.5) H 11/07/21 21: Lymph # (Auto) 0.79 K/uL (1.2-3.4) L 11/07/21: [place] # (Auto) 0.68 K/uL (0.24-0.82) 11/07/21 21: Eos # (Auto) 0.01 K/uL (0-0.50) 11/07/21: Baso # (Auto) 0.03 K/uL (0-0.2) 11/07/21: Immature Gran # (Auto) 0.06 K/uL (0.00-0.02) H 11/07/21 21: PT 12.3 Seconds (9.0-12.0) H 11/08/21 09:45 INR 1.2 (0.9-1.1) H 11/08/21 09:45 Sodium 139 mmol/L (136-145) 11/07/21 21:33 Potassium 4.0 mmol/L (3.5-5.1) 11/07/21 21:33 Chloride 102 mmol/L (98-107) 11/07/21 21:33 Carbon Dioxide 29 mmol/L (21-32) 11/07/21 21:33 Anion Gap 8 (3-11) 11/07/21 21:33 BUN 33 mg/dl (6-23) H 11/07/21 21:33 Creatinine 1.43 mg/dl (0.6-1.4) H 11/07/21 21:33 Est Cr Clr Drug Dosing Not Reportable 11/07/21 21:33 Est GFR ( Amer) 52.5 ml/min 11/07/21 21:33 Est GFR (Non-Af Amer) 45.3 ml/min 11/07/21 21:33 BUN/Creatinine Ratio 23.1 (10-20) H 11/07/21 21:33 Glucose 111 mg/dl (70-99(Fasting)) H 11/07/21 21:33 Calcium 9.3 mg/dl (8.5-10.1) 11/07/21 21:33 Total Bilirubin 6.3 mg/dl (0.2-1.0) H 11/07/21 21:33 AST 122 U/L (13-39) H 11/07/21 21:33 ALT 173 U/L (7-52) H 11/07/21 21:33 Alkaline Phosphatase 261 U/L (34-104) H 11/07/21 21:33 Troponin I High Sens 18.2 pg/ml (0-20) 11/07/21 21:33 Total Protein 7.7 gm/dl (6.0-8.3) 11/07/21 21:33 Albumin 3.9 gm/dl (3.4-5.0) 11/07/21 21:33 Globulin 3.8 gm/dl (2.5-4.0) 11/07/21 21:33 Albumin/Globulin Ratio 1.0 (0.9-2) 11/07/21 21:33 Lipase 1395 U/L (11-82) H 11/07/21 21:33 Urine Color Dark Yellow 11/07/21 22:38 Urine Appearance Clear (Clear) 11/07/21 22:38 Urine pH 5.0 (4.5-7.5) 11/07/21 22:38 Ur Specific [place] 1.017 (1.000-1.030) 11/07/21 22:38 Urine Protein Negative (Negative) 11/07/21 22:38 Urine Glucose (UA) Negative (Negative) 11/07/21 22:38 Urine Ketones Trace (Negative) H 11/07/21 22:38 Urine Blood Trace (Negative) H 11/07/21 22:38 Urine Nitrite Positive (Negative) A 11/07/21 22:38 Urine Bilirubin 2+ (Negative) H 11/07/21 22:38 Urine Urobilinogen Negative (Negative) 11/07/21 22:38 Ur Leukocyte Esterase Negative (Negative) 11/07/21 22:38 Urine WBC (Auto) 0 /hpf (0-5) 11/07/21 22:38 Urine RBC (Auto) 0-4 /hpf (0-4) 11/07/21 22:38 U Hyaline Cast (Auto) 1-5 /lpf (0-5) 11/07/21 22:38 U Epithel Cells (Auto) 0-5 /lpf (0-5) 11/07/21 22:38 Urine Bacteria (Auto) Negative (Negative) 11/07/21 22:38 SARS-CoV-2, RNA, NAAT NEGATIVE (NEGATIVE) 11/08/21 01:00 Impressions Abdomen/Pelvis CT 11/07/21 21:[address] WITH IV CONTRAST CT DOSE: 933.18 mGy.cm HISTORY: Acute generalized abdominal pain abd pain TECHNIQUE: Multiaxial CT images of the abdomen and pelvis were performed following the IV administration of 94 cc of Optiray, A dose lowering technique was utilized adhering to the principles of ALARA. COMPARISON STUDY: CT abdomen and pelvis 06/25/2017 FINDINGS: Cardiomegaly. Prior median sternotomy with aortic valvular prosthesis. Mild subsegmental bibasilar atelectasis/scarring. There is no pneumatosis or pneumoperitoneum. The spleen, mildly atrophic pancreas and adrenal glands are unremarkable. Cholelithiasis with mild gallbladder wall thickening and trace pericholecystic stranding. Unremarkable liver. Mild cortical thinning of the kidneys with mild bilateral perinephric stranding. There are a few small renal sinus cysts noted bilaterally. There are a few subcentimeter renal hypodensities which are too small to characterize. 1.2 cm cyst of the superior pole right kidney. No renal or ureteral calculi or hydronephrosis identified. Brachytherapy seeds are noted within the mildly enlarged prostate. Urinary bladder wall thickening with trabeculation. Diverticulum of the urinary bladder measure up to 3.6 cm on the right. Atherosclerosis of the abdominal aorta without aneurysm. There is no lymphadenopathy. No bowel obstruction or bowel wall thickening. Colonic diverticulosis. Normal appendix. Tiny fat filled periumbilical hernia. Degenerative changes of the spine, pelvis and hips. Subacute appearing nondisplaced fracture of the posteri or bilateral 12th ribs and L1 transverse processes. Mild generalized body wall edema. IMPRESSION: 1. Cholelithiasis with mild gallbladder wall thickening and pericholecystic stranding is suspicious for acute cholecystitis. Correlate with clinical exam findings. 2. No bowel obstruction or bowel wall thickening. 3. Colonic diverticulosis. 4. Evidence of chronic bladder outlet obstruction. 5. Additional findings as above. ACT 112: Negative or not required by law. The above report was generated using voice recognition software. It may contain grammatical, syntax or spelling errors. Electronically signed by: Quinton Wilde M.D. 11/08/2021 8:03 AM Gallbladder Ultrasound 11/08/21 00:58 ABDOMINAL ULTRASOUND, RIGHT UPPER QUADRANT HISTORY: Right upper quadrant pain. ? Choledocholithiasis. COMPARISON: Abdomen and pelvis CT 10/30/2021. FINDINGS: Pancreas: The pancreatic head and tail are obscured by overlying bowel gas. The remaining portions of the pancreas are within normal limits. Liver: Unremarkable. Gallbladder: Multiple gallstones and a small amount of sludge. Gallbladder wall is mildly thickened measuring up to 3.5 mm. Negative sonographic Castaneda sign. CBD: 5 mm. Right kidney: No hydronephrosis. A 12 mm upper pole cyst. IMPRESSION: 1. Multiple gallstones and mild gallbladder wall thickening. However, there is a negative sonographic Castaneda sign. An early acute cholecystitis cannot be excluded. Consider follow-up nuclear medicine HIDA scan. 2. A 12 mm right renal cyst. ACT 112: Negative or not required by law. Electronically signed by: Mendoza Uriostegui M.D. 11/08/2021 7:00 AM Medications Administered Current Inpatient Medications Acetaminophen (Acetaminophen 325 Mg Tab) 650 mg PO Q4H PRN PRN Reason: pain/fever Stop: 12/08/21 02:23 Bupropion HCl (Bupropion Sr 150 Mg Tabcr) 150 mg PO BID [facility] Stop: 12/08/21 08:59 Last Admin: 11/08/21 08:31 Dose: 150 mg Docusate Sodium (Docusate Sodium 100 Mg Cap) 100 mg PO BID PRN PRN Reason: Constipation Stop: 12/08/21 02:23 Piperacillin Sod/Tazobactam (Sod 3.375 gm/ Dextrose) 115 mls @ 28.75 mls/hr IV Q8H [facility]; Protocol Stop: 11/18/21 02:23 Last Infusion: 11/08/21 10:19 Dose: Infused Morphine Sulfate (Morphine Sulfate 2 Mg/Ml Carp) 1 mg IV Q3H PRN PRN Reason: Pain (1,2,3,4,5) & Pre PT Stop: 11/22/21 02:23 Morphine Sulfate (Morphine Sulfate 2 Mg/Ml Carp) 2 mg IV Q3H PRN PRN Reason: Pain (6,7,8,9,10) Stop: 11/22/21 02:23 Ondansetron HCl (Ondansetron Inj 2 Mg/Ml 2 Ml Vial) 4 mg IV Q6H PRN PRN Reason: Nausea And Vomiting Stop: 12/08/21 02:23 Pantoprazole Sodium (Pantoprazole 40 Mg Tab) 40 mg PO QAM [facility] Stop: 12/08/21 08:59 Last Admin: 11/08/21 08:32 Dose: 40 mg Resident Activity Tracking Resident Involvement: Resident Care Provided Care Provided: Adult Hospital Medicine (1) Coronary artery disease Associated angina: without angina Coronary Disease-Associated Artery/Lesion type: tribal artery [place] vs. transplanted heart: tribal heart Qualified Code(s): I25.10 - Atherosclerotic heart disease of tribal coronary artery without angina pectoris (2) Hypertension Hypertension type: essential hypertension Qualified Code(s): I10 - Essential (primary) hypertension
--- NOTE | 2021-11-08 12:22 | Anesthesiology Consultation ---
Date of Service November 08, 2021 Assessment & Plan (1) Encounter for pre-operative examination: Chart Review Chart Review: Acceptable Risk for Surgery and Patient NOT seen in Pre Admission Testing Consults Requested none History Surgery Operation Date: 11/08/21 12:30 Proposed Procedures p Endoscopic Ultrasonography Upper - Levi Alfaro MD s Endoscopic Retrograde Cholangiopancreatogram - Levi Alfaro MD Height/Weight Height: 5 ft 10 in Weight: 102 kg Allergies Allergy/AdvReac Type Severity Reaction Status Date / Time No Known Drug Allergies Allergy Unknown Verified 11/07/21 22:35 Medications Home Medications Medication Instructions Recorded Confirmed Last Taken atorvastatin 80 mg tablet 80 mg PO HS #90 tabs 02/19/21 11/07/21 11/07/21 bupropion HCl 150 mg tablet,12 hr 150 mg PO BID #180 ea 10/29/21 11/07/21 11/07/21 sustained-release lisinopril 20 mg tablet 20 mg PO BID #180 tabs 10/29/21 11/07/21 11/07/21 amoxicillin 500 mg tablet 2,000 mg PO ONCE PRN Prophylaxis 11/07/21 11/07/21 Unknown aspirin 81 mg tablet,delayed 81 mg PO QAM 11/07/21 11/07/21 11/07/21 release fluocinonide 0.05 % topical cream 1 applic topical BID PRN .rash 11/07/21 11/07/21 Unknown folic acid 400 mcg tablet 0.4 mg PO QAM 11/07/21 11/07/21 11/07/21 hydrochlorothiazide 25 mg tablet 25 mg PO QAM 11/07/21 11/07/21 11/07/21 pantoprazole 40 mg tablet,delayed 40 mg PO QAM 11/07/21 11/07/21 11/07/21 release (Protonix) Active Medications Generic Name Dose Route Start Last Admin Trade Name Freq PRN Reason Stop Dose Admin Bupropion HCl 150 mg 11/08/21 09:00 11/08/21 08:31 Bupropion Sr 150 Mg Tabcr PO 12/08/21 08:59 150 mg BID JUANJOSE Administration Piperacillin Sod/Tazobactam 115 mls @ 28.75 mls/hr 11/08/21 02:24 11/08/21 10:19 Sod 3.375 gm/ Dextrose IV 11/18/21 02:23 Infused Q8H JUANJOSE Infusion Protocol Lactated Ringer's 1,000 mls @ 200 mls/hr 11/08/21 02:24 11/08/21 12:17 Lr IV 11/08/21 12:23 200 mls/hr .Q5H JUANJOSE Administration Pantoprazole Sodium 40 mg 11/08/21 09:00 11/08/21 08:32 Pantoprazole 40 Mg Tab PO 12/08/21 08:59 40 mg QAM JUANJOSE Administration Past Medical History Medical History Cervical radiculopathy Difficulty reading due to visual problem Former smoker History of snuff use Hyperhomocystinemia Hypertension Hyperthyroidism Prediabetes 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, 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, clinical stage TIc Status post biopsies, biopsy stage TIIa [place] grade 3+3 Status post seed implant with cesium 131 as boost 12/08/2006 Status post completion of IMRT/IGRT 02/26/2007" Prostate cancer Pure hypercholesterolemia PVC (premature ventricular contraction) Past Family History Family History Mother Heart disease Brother Cancer Lung cancer Unknown Prostate cancer Father Prostate cancer Denies family history of Colon cancer Ovarian cancer Myocardial infarction Breast cancer Past Surgical History Surgical History H/O aortic valve repair H/O hernia repair Status post aortic valve replacement with bioprosthetic valve Social History Smoking Status: Former smoker tobacco type: cigarettes Hx Alcohol Use: No Hx Substance Use: No Physical Exam Vital Signs Last Vital Signs Temp 98.1 F 11/07/21 21:35 Pulse 63 11/08/21 11:34 Resp 16 11/08/21 11:34 BP 128/67 11/08/21 11:34 Pulse Ox 98 11/08/21 11:34 O2 Del Method 11/08/21 11:34 Testing Laboratory Results 11/07/21 21:33 11/07/21 21:33 PT 12.3 Seconds (9.0-12.0) H 11/08/21 09:45 INR 1.2 (0.9-1.1) H 11/08/21 09:45 Urine Color Dark Yellow 11/07/21 22:38 Urine Appearance Clear (Clear) 11/07/21 22:38 Urine pH 5.0 (4.5-7.5) 11/07/21 22:38 Ur Specific [place] 1.017 (1.000-1.030) 11/07/21 22:38 Urine Protein Negative (Negative) 11/07/21 22:38 Urine Glucose (UA) Negative (Negative) 11/07/21 22:38 Urine Ketones Trace (Negative) H 11/07/21 22:38 Urine Nitrite Positive (Negative) A 11/07/21 22:38 Ur Leukocyte Esterase Negative (Negative) 11/07/21 22:38 Urine WBC (Auto) 0 /hpf (0-5) 11/07/21 22:38 Urine RBC (Auto) 0-4 /hpf (0-4) 11/07/21 22:38 U Hyaline Cast (Auto) 1-5 /lpf (0-5) 11/07/21 22:38 U Epithel Cells (Auto) 0-5 /lpf (0-5) 11/07/21 22:38 Urine Bacteria (Auto) Negative (Negative) 11/07/21 22:38 Electrocardiogram Date: 11/07/21 Findings: + AFIB @ (89) and + LBBB
[2021-11-08] MEDS ORDERED: ATROPINE SULFATE 0.1 MG/ML 10ML SYR IV PRN (14:57)
[2021-11-08] MEDS ORDERED: fentaNYL citrate 100 MCG/2 ML VIAL IV PRN (14:57)
[2021-11-08] MEDS ORDERED: ePHEDrine sulfate 50 MG/ML AMP IV PRN (14:57)
[2021-11-08] MEDS ORDERED: fentaNYL citrate 100 MCG/2 ML VIAL ONE ×2 (16:16→18:04)
[2021-11-08] MEDS ORDERED: ACETAMINOPHEN 1000 MG/100 ML IV IV ONE (16:17)
[2021-11-08] MEDS ORDERED: INDOMETHACIN 50 MG SUPP PR STA (16:46)
--- NOTE | 2021-11-08 17:11 | Operative Report ---
Post Operative Report Pre & Post Diagnosis Operation Date: 11/08/21 12:30 Pre-Op Diagnosis: PANCREATITIS I identified the patient and participated in the time-out.: Yes Procedure Operation Date: 11/08/21 12:30 Actual Procedures p Endoscopic Ultrasonography Upper(Not Applicable) - MD bryn Roldan Endoscopic Retrograde Cholangiopancreatogram(Not Applicable) - MD bryn Roldan Laparoscopic Cholecystectomy(Not Applicable) - Pancho Pollock, DO, FACS Surgeon Levi Alfaro MD Detective And Intelligence Analyst None Estimated Blood Loss 0 Findings See Below (CBD stone removed, stent placed) Specimens None Description of Procedure EUS/ERCP I attest to the content of the Intraoperative Record and any orders documented therein. Any exceptions are noted below.
--- NOTE | 2021-11-08 17:12 | XCELERA ---
[id number]
--- NOTE | 2021-11-08 17:22 | GI REPORT ---
Patient Name: Kermit Rogers Procedure Date: 11/08/2021 4:13 PM Date of : 1940 Admit Type: Inpatient Age: 80 Gender: Male Attending MD: Levi Alfaro MD Procedure: Upper GI endoscopy Providers: Levi Alfaro MD Referring MD: Desiree Mullins Indications: Abdominal pain Medicines: Propofol per Anesthesia Complications: No immediate complications. Estimated Blood Loss: Estimated blood loss: none. Procedure: Pre-Anesthesia Assessment: - Prior to the procedure, a History and Physical was performed, and patient medications, allergies and sensitivities were reviewed. The patient's tolerance of previous anesthesia was reviewed. - The risks and benefits of the procedure and the sedation options and risks were discussed with the patient. All questions were answered and informed consent was obtained. - Patient identification and proposed procedure were verified prior to the procedure by the physician and the nurse. The procedure was verified in the procedure room. - Pre-procedure physical examination revealed no contraindications to sedation. After obtaining informed consent, the endoscope was passed under direct vision. Throughout the procedure, the patient's blood pressure, pulse, and oxygen saturations were monitored continuously. The Endoscope was introduced through the mouth, and advanced to the second part of duodenum. The upper GI endoscopy was accomplished without difficulty. The patient tolerated the procedure well. Findings: The examined esophagus was normal. The entire examined stomach was normal. The duodenal bulb and second portion of the duodenum were normal. Impression: - Normal esophagus. - Normal stomach. - Normal duodenal bulb and second portion of the duodenum. - No specimens collected. Recommendation: - Perform an upper endoscopic ultrasound (UEUS) today. Levi Alfaro MD 11/08/2021 5:21:22 PM This report has been signed electronically. Note Initiated On: 11/08/2021 4:13 PM Number of Addenda: 0 I attest to the content of the Intraoperative Record and orders documented therein, exceptions below {[id number]}
--- NOTE | 2021-11-08 17:25 | GI REPORT ---
Patient Name: Kermit Rogers Procedure Date: 11/08/2021 4:13 PM Date of : 1940 Admit Type: Inpatient Age: 80 Gender: Male Attending MD: Levi Alfaro MD Procedure: Upper EUS Providers: Levi Alfaro MD Referring MD: Desiree Mullins Indications: Elevated liver enzymes, Suspected choledocholithiasis Medicines: General Anesthesia Complications: No immediate complications. Estimated Blood Loss: Estimated blood loss: none. Procedure: Pre-Anesthesia Assessment: - Prior to the procedure, a History and Physical was performed, and patient medications, allergies and sensitivities were reviewed. The patient's tolerance of previous anesthesia was reviewed. - The risks and benefits of the procedure and the sedation options and risks were discussed with the patient. All questions were answered and informed consent was obtained. - Patient identification and proposed procedure were verified prior to the procedure by the physician and the nurse. The procedure was verified in the procedure room. - Pre-procedure physical examination revealed no contraindications to sedation. After obtaining informed consent, the endoscope was passed under direct vision. Throughout the procedure, the patient's blood pressure, pulse, and oxygen saturations were monitored continuously. The scope was introduced through the mouth, and advanced to the second part of duodenum. The upper EUS was accomplished without difficulty. The patient tolerated the procedure well. Findings: ENDOSONOGRAPHIC FINDING: : There was no sign of significant endosonographic abnormality in the ampulla. No masses were identified. One stone was visualized endosonographically in the common bile duct. It was hyperechoic and characterized by shadowing. The diameter of the duct measured 4 mm. Multiple stones were visualized endosonographically in the gallbladder. They were hyperechoic and characterized by shadowing. There was no sign of significant endosonographic abnormality in the visualized portion of the liver. Homogeneous parenchyma was identified. There was no sign of significant endosonographic abnormality in the entire pancreas. The pancreatic duct measured up to 2 mm in diameter. There was no sign of significant endosonographic abnormality in the visualized portion of the left adrenal gland. There was no sign of significant endosonographic abnormality involving the celiac trunk. Impression: - There was no sign of significant pathology in the ampulla. - One stone was visualized endosonographically in the common bile duct. - Multiple stones were visualized endosonographically in the gallbladder. Significant thickening fo the wall of the gallbladder consistent with acute cholecystitis. - There was no evidence of significant pathology in the visualized portion of the liver. - There was no sign of significant pathology in the entire pancreas. - Endosonographic images of the left adrenal gland were unremarkable. - The celiac trunk was endosonographically normal. Recommendation: - Perform an ERCP today. Levi Alfaro MD 11/08/2021 5:24:26 PM This report has been signed electronically. Note Initiated On: 11/08/2021 4:13 PM Number of Addenda: 0 I attest to the content of the Intraoperative Record and orders documented therein, exceptions below {[id number]}
[2021-11-08] MEDS ORDERED: PROPOFOL IV EMULSION 10 MG/ML 20 ML VIAL IV ONE (17:27)
[2021-11-08] MEDS ORDERED: ONDANSETRON INJ 2 MG/ML 2 ML VIAL ONE (17:27)
[2021-11-08] MEDS ORDERED: ROCURONIUM BROMIDE 10 MG/ML 5 ML VIAL IV ONE (17:27)
[2021-11-08] MEDS ORDERED: LIDOCAINE 2% MPF LOCAL 5 ML VIAL INFIL ONE (17:27)
[2021-11-08] MEDS ORDERED: PHENYLEPHRINE HCL 10 MG/ML VIAL ONE (17:27)
--- NOTE | 2021-11-08 17:27 | GI REPORT ---
Patient Name: Kermit Rogers Procedure Date: 11/08/2021 4:15 PM Date of : 1940 Admit Type: Inpatient Age: 80 Gender: Male Attending MD: Levi Alfaro MD Procedure: ERCP Providers: Levi Alfaro MD Referring MD: Pancho Moura d.o., Do Indications: For therapy of bile duct stone(s) Medicines: General Anesthesia Complications: No immediate complications. Estimated Blood Loss: Estimated blood loss: none. Procedure: Pre-Anesthesia Assessment: - Prior to the procedure, a History and Physical was performed, and patient medications, allergies and sensitivities were reviewed. The patient's tolerance of previous anesthesia was reviewed. - The risks and benefits of the procedure and the sedation options and risks were discussed with the patient. All questions were answered and informed consent was obtained. - Patient identification and proposed procedure were verified prior to the procedure by the physician and the nurse. The procedure was verified in the procedure room. - Pre-procedure physical examination revealed no contraindications to sedation. After obtaining informed consent, the scope was passed under direct vision. Throughout the procedure, the patient's blood pressure, pulse, and oxygen saturations were monitored continuously. The Duodenoscope was introduced through the mouth, and advanced to the duodenum and used to inject contrast into the bile duct. The ERCP was accomplished without difficulty. The patient tolerated the procedure well. Findings: The geophysical observer film was normal. The esophagus was successfully intubated under direct vision. The scope was advanced to a normal major papilla in the descending duodenum without detailed examination of the pharynx, larynx and associated structures, and upper GI tract. The upper GI tract was grossly normal. A 0.035 inch straight standard wire was passed into the biliary tree. The Fusion OMNI sphincterotome was passed over the guidewire and the bile duct was then deeply cannulated. Contrast was injected. I personally interpreted the bile duct images. Ductal flow of contrast was adequate. Image quality was adequate. Contrast extended to the main bile duct. Opacification of the entire biliary tree was successful. The maximum diameter of the ducts was 8 mm. Biliary sphincterotomy was made with a monofilament traction (standard) sphincterotome using ERBE electrocautery. There was no post-sphincterotomy bleeding. The biliary tree was swept with a 12 mm balloon starting at the bifurcation. Many stones were removed. No stones remained. One 10 Fr by 9 cm plastic biliary stent with a single external flap and a single internal flap was placed into the common bile duct. Bile flowed through the stent. The stent was in good position. Indomethacin 100 mg was given via suppository to decrease the risk of post-ERCP pancreatitis (PEP). Impression: - Choledocholithiasis was found. Complete removal was accomplished by biliary sphincterotomy and balloon extraction. - One plastic biliary stent was placed into the common bile duct. Recommendation: - [facility] care. - Repeat ERCP in 8 weeks to remove stent. Levi Alfaro MD 11/08/2021 5:27:08 PM This report has been signed electronically. Note Initiated On: 11/08/2021 4:15 PM Number of Addenda: 0 I attest to the content of the Intraoperative Record and orders documented therein, exceptions below {[id number]}
--- NOTE | 2021-11-08 17:39 | Fluoroscopy Report ---
FL ERCP biliary ductal CLINICAL HISTORY: ERCP COMPARISON STUDY: None FLUOROSCOPY TIME: 2 minutes and 56 seconds. FLUOROSCOPIC IMAGES: 12 FINDINGS: The common bile duct was catheterized with retrograde injection of contrast into the common bile duct and common cystic duct. Subsequently, a stent was placed within the common bile duct. IMPRESSION: Status post ERCP with placement of a stent within the common bile duct. Please see posto perative report for further evaluation. ACT 112: Negative or not required by law. Electronically signed by: Odilon Craft M.D. 11/08/2021 5:38 PM
[2021-11-08] MEDS ORDERED: BUPIVACAINE 0.25% 30 ML VIAL ONE (17:40)
[2021-11-08] MEDS ORDERED: EPINEPHrine INJ 1 MG/ML AMP ONE (17:40)
[2021-11-08] MEDS ORDERED: NEOSTIGMINE METHYLSULFATE 1 MG/ML 10ML VIAL ONE (18:19)
[2021-11-08] MEDS ORDERED: GLYCOPYRROLATE 0.2 MG/ML VIAL ONE (18:19)
--- NOTE | 2021-11-08 18:33 | Operative Report ---
[facility] Post Operative Report Pre & Post Diagnosis Operation Date: 11/08/21 12:30 Pre-Op Diagnosis: PANCREATITIS, choledocholithiasis, cholecystitis Post-Op Diagnosis: PANCREATITIS, choledocholithiasis, cholecystitis I identified the patient and participated in the time-out.: Yes Procedure Operation Date: 11/08/21 12:30 Actual Procedures s Laparoscopic Cholecystectomy(Not Applicable) - Pancho Pollock DO, FACS Surgeon Pancho Pollock DO, FACS Auto Vinyl Top Installer None Estimated Blood Loss 30 Findings Consistent with Post-Op Diagnosis (CBD stone removed, stent placed) Acute on chronic inflammation. Critical view of safety obtained, cystic duct and artery doubly clipped and divided. Good hemostasis. Specimens Gallbladder Anesthesia Type General Complications none Disposition Accompanied Patient To Recovery: No Indications 80-year-old male presented with signs and symptoms of cholelithiasis, cholecystitis, choledocholithiasis, and pancreatitis. Plan for ERCP by GI followed by laparoscopic cholecystectomy. The risks of the procedure were discussed, all questions were answered, and the patient agreed to proceed with surgery as planned. Description of Procedure The patient was properly identified, consented, and taken to the operating room where he was placed in the supine position. General endotracheal anesthesia was induced. SCDs and a safety belt were placed. Preoperative antibiotics were administered. The patient underwent an ERCP by GI, please see their dictation for further details. The patient's abdomen was prepped and draped in the standard sterile fashion. A surgical timeout was performed and all parties were in agreement that this was the correct patient and procedure to be performed and we continued as planned. An incision was made superior and to the left of the umbilicus overlying the rectus muscle and the Veress needle was inserted. Saline drop test confirmed entry into the peritoneum. The abdomen was insufflated with carbon dioxide which the patient tolerated without incident. The abdomen was then entered using the Optiview technique and a 5 mm trocar. The laparoscope was inserted and no damage from initial trocar or Veress needle placement was noted, no gross abnormalities were noted within the 4 quadrants of the abdomen. An 11 mm port was placed in the subxiphoid position and two 5 mm ports were then placed in the right subcostal position. The patient was placed in reverse Trendelenburg position and rotated towards the left. The gallbladder was acutely and chronically inflamed. Some omental adhesions were taken off of the gallbladder with blunt dissection and electrocautery. The dome of the gallbladder was retracted towards the left upper quadrant and the infundibulum was retracted toward the right lower quadrant revealing Calot's triangle. Peritoneal attachments were taken down with electrocautery and blunt dissection. The cystic duct and artery were circumferentially dissected. A window of safety was obtained showing the cystic duct entering the gallbladder with no aberrant structures noted. The cystic duct and artery were doubly clipped and divided. The gallbladder was then lifted off the gallbladder fossa with electrocautery. The gallbladder was placed in an Endo Catch bag and removed through the subxiphoid port site. The right upper quadrant was irrigated and hemostasis was found to be good. 5 mm trochars were removed under direct visualization and the abdomen was allowed to collapse. The subxiphoid port site fascia was closed with 0 Vicryl suture. The wound was irrigated, and the skin of all ports was closed with 4-0 Monocryl subcuticular sutures. Dermabond was placed over the wounds. The patient was extubated in the operating room and taken to the PACU where he recovered without apparent incident. All sponge, instrument and needle counts were correct at the conclusion of the procedure. The patient tolerated the procedure well. The physician's production administrative assistant was present and scrubbed for the entirety of the case and was essential in positioning the patient, prepping and draping, retraction and exposure, driving the laparoscope, removal of the gallbladder, closure the incisions, and placement of the dressings. I attest to the content of the Intraoperative Record and any orders documented therein. Any exceptions are noted below.
[2021-11-08] MEDS ORDERED: oxyCODONE HCL IR 5 MG TAB (IMMEDIATE RELEASE) PO PRN ×2 (19:56)
--- NOTE | 2021-11-08 20:24 | Anesthesiology Progress Note ---
Date of Service November 08, 2021 Anesthesia Post Procedure Vital Signs Vital Signs: Temp Pulse Pulse Pulse Resp BP BP 11/08/21 19:15 75 18 152/95 H 11/08/21 19:05 77 15 154/88 H 11/08/21 18:55 86 14 145/90 H 11/08/21 19:35 36.2 C L 69 20 157/92 H 11/08/21 19:25 73 17 152/98 H 11/08/21 18:49 36.1 C L 93 H 14 178/102 H 11/08/21 15:20 36.9 C 80 16 176/93 H 11/08/21 11:34 63 16 128/67 11/08/21 08:30 71 18 141/81 H 11/08/21 02:00 80 18 125/86 11/07/21 23:22 89 18 150/104 H 11/07/21 21:52 11/07/21 21:35 36.7 C 87 20 142/99 H Pulse Ox O2 Del Method O2 Flow Rate 11/08/21 19:15 99 Oxymask 2 11/08/21 19:05 100 Oxymask 4 11/08/21 18:55 97 Oxymask 6 11/08/21 19:35 95 Nasal Cannula 2 11/08/21 19:25 90 Room Air 11/08/21 18:49 98 Oxymask 6 11/08/21 15:20 96 Room Air 11/08/21 11:34 98 Room Air 11/08/21 08:30 95 Room Air 11/08/21 02:00 90 Room Air 11/07/21 23:22 93 Room Air 11/07/21 21:52 92 Room Air 11/07/21 21:35 96 Pain Intensity Right Lower Abdomen: Pain Intensity: 3 Transfer of Care Handoff Completed per policy Notes Mental Status: alert / awake / arousable and participated in evaluation Patient Amnestic to Procedure: Yes Nausea / Vomiting: adequately controlled Pain: adequately controlled Airway Patency, RR, SpO2: stable & adequate BP & HR: stable & adequate Hydration State: stable & adequate Anesthetic Complications: no major complications apparent and Pt Satisfied with anesthetic care
[2021-11-08] MEDS: ATORVASTATIN 40 MG TAB PO SCH (20:29)
[2021-11-08] MEDS ORDERED: lisinopril 20 MG TAB PO SCH (21:00)
--- NOTE | 2021-11-08 21:08 | Electrocardiogram Report ---
Test Reason : Blood Pressure : / mmHG Vent. Rate : 089 BPM Atrial Rate : 102 BPM P-R Int : 000 ms QRS Dur : 148 ms QT Int : 398 ms P-R-T Axes : 000 -46 121 degrees QTc Int : 484 ms Atrial fibrillation with premature ventricular or aberrantly conducted complexes Left axis deviation Left bundle branch block Abnormal ECG When compared with ECG of 28-DEC-2010 11:15, Atrial fibrillation has replaced Sinus rhythm Vent. rate has increased BY 36 BPM Left bundle branch block is now Present Criteria for Anteroseptal infarct are no longer Present Criteria for Inferior infarct are no longer Present Confirmed by Denny Lott ([id number]) on 11/08/2021 9:07:54 PM Referred By: REFERRED SELF Confirmed By:Denny Lott
[2021-11-09] MEDS: LACTATED RINGER'S 1,000 ML IV SCH ×2 (05:28→13:17)
[2021-11-09] MEDS: PIPERACILLIN/TAZOBACTAM 3.375 GM in DEXTROSE 5% 100 ML IV SCH ×2 (05:31→13:48)
[2021-11-09 07:20] LABS: Basophils # (auto) 0.04 K/uL (0-0.2); Basophils % (auto) 0.4 %; Eosinophils % (auto) 1.1 %; Hematocrit (blood only) 34.5 % (40.1-51.0); Hemoglobin 11.5 g/dl (14.0-18.0); Immature Granulocytes # (auto) 0.03 K/uL (0.00-0.02); Immature Granulocytes % (auto) 0.3 %; Lymphocytes # (auto) 1.27 K/uL (1.2-3.4); Lymphocytes % (auto) 13.5 %; Mean Corpuscular Hemoglobin 29.9 pg (25.0-34.0); Mean Corpuscular Hgb Conc 33.3 g/dL (32.0-36.0); Mean Corpuscular Volume 89.8 fL (80.0-100.0); Mean Platelet Volume 11.1 fL (9.4-12.4); Monocytes # (auto) 0.74 K/uL (0.24-0.82); Monocytes % (auto) 7.8 %; Neutrophils # (auto) 7.26 K/uL (1.4-6.5); Neutrophils % (auto) 76.9 %; Platelet Count 147 K/uL (130-400); RDW Coefficient of Variation 14.9 % (11.5-14.5); RDW Standard Deviation 48.9 fL (36.4-46.3); Red Blood Count 3.84 M/uL (4.63-6.08); White Blood Count 9.44 K/ul (4.8-10.8)
[2021-11-09 07:30] LABS: INR 1.1 (0.9-1.1); Prothrombin Time 12.1 Seconds (9.0-12.0)
[2021-11-09 08:00] LABS: Albumin Level 2.9 gm/dl (3.4-5.0); BUN Creatinine Ratio 23.4 (10-20); Bilirubin Direct 0.6 mg/dl (0-0.2); Bilirubin,Total 1.7 mg/dl (0.2-1.0); Calcium 7.7 mg/dl (8.5-10.1); Creatinine Clr Calc Pharmacy 40.8 ml/min; Est GFR (African American) 43.5 ml/min; Est GFR (Non-African American) 37.5 ml/min; Potassium 3.9 mmol/L (3.5-5.1); Total Protein 5.8 gm/dl (6.0-8.3)
--- NOTE | 2021-11-09 08:06 | Surgery Progress Note ---
Date of Service November 09, 2021 Assessment & Plan (1) Choledocholithiasis: Plan: POD 1 ERCP/lap ish LFTs improved, Cr up slightly advance diet as janusz dispo per medicine f/u 2 weeks in clinic Admission and Anticipated Discharge Date Admission Date: November 08, 2021 Supervising Physician Co-Signing Physician Notes pnt s&e, agree with above. POD#1 ercp/lap ish. pain improved, tolerated diet. afvss, abd soft, nt, incisions w/o infection. lft's and bili down, wbc normal. diet as tolerated, d/c to home from surgery standpoint. wound care instructions and activity restrictions reviewed, return precautions given. f/u in 2 weeks. f/u with gi for stent removal. Subjective some soreness right subcostal port, no nausea Physical Exam Gastrointestinal (Abdomen): Inspection/Auscultation: + abdominal surgical incision (dry); abdomen not distended Percussion/Palpation: abdomen soft Results & Data ([facility]) Vital Signs (Past 12 Hours) Vital Signs Temp Pulse Resp BP BP Pulse Ox O2 Del Method 11/09/21 07:14 36.4 C L 67 16 133/88 99 Nasal Cannula 11/09/21 03:02 36.5 C 58 L 18 111/70 97 Nasal Cannula 11/09/21 00:39 Nasal Cannula 11/09/21 00:39 36.8 C 64 18 148/85 H 100 Nasal Cannula 11/08/21 23:00 36.2 C L 64 18 142/86 H 98 Nasal Cannula 11/08/21 22:00 36.3 C L 67 18 146/92 H 99 Nasal Cannula 11/08/21 21:00 36.3 C L 64 18 175/82 H 99 Room Air 11/08/21 20:30 36.8 C 68 18 148/85 H 100 Nasal Cannula O2 Flow Rate 11/09/21 07:14 2 11/09/21 03:02 2 11/09/21 00:39 2 11/09/21 00:39 2 11/08/21 23:00 2 11/08/21 22:00 2 11/08/21 21:00 11/08/21 20:30 2 PG Care Time/CCT Total # of Minutes Spent Total Time Spent with Patient: Total time spent is greater than 50% in coordination of care (as documented) at patient's floor/unit and/or counseling patient: Coding Level of Care Code None Diagnoses Choledocholithiasis K80.50
[2021-11-09] MEDS: buPROPion SR 150 MG TABCR PO SCH ×2 (08:34→20:06)
[2021-11-09] MEDS: FOLIC ACID 400 MCG TAB PO SCH (08:34)
[2021-11-09] MEDS: PANTOprazole 40 MG TAB PO SCH (08:34)
[2021-11-09] MEDS ORDERED: hydroCHLOROthiazide 25 MG TAB PO SCH (09:00)
[2021-11-09 15:52] LABS: BUN Creatinine Ratio 22.6 (10-20); Calcium 7.8 mg/dl (8.5-10.1); Creatinine Clr Calc Pharmacy 38.5 ml/min; Est GFR (African American) 40.6 ml/min; Potassium 3.9 mmol/L (3.5-5.1)
--- NOTE | 2021-11-09 17:19 | XRay Report ---
XR chest 1V portable HISTORY: 80 years-old Male diminished breath sounds acute shortness of breath COMPARISON: Chest and rib radiographs 05/27/2020 TECHNIQUE: Portable AP view of the chest FINDINGS: Cardiac silhouette is enlarged. Prior median sternotomy with cardiac valvular prosthesis. 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 Unchanged right hemidiaphragmatic elevation. Pulmonary vascular congest ion. No pneumothorax or large pleural effusion. Mild subsegmental bibasilar densities. Degenerative c hanges of the shoulders and spine. IMPRESSION: 1. Cardiomegaly with pulmonary vascular congestion. 2. Unchanged right hemidiaphragmatic elevation with mild bibasilar densities favoring atelectasis. ACT 112: Negative or not required by law. The above report was generated using voice recognition software. It may contain grammatical, syntax o r spelling errors. Electronically signed by: Quinton Wilde M.D. 11/09/2021 5:17 PM
[2021-11-09] MEDS ORDERED: FUROSEMIDE INJ 20 MG/2 ML VIAL IV ONE (17:28)
[2021-11-09 17:53] LABS: Appearance Urine Clear (Clear); Bilirubin Urine Negative (Negative); Blood Urine Negative (Negative); Color Urine Yellow; Glucose Urine UA Negative (Negative); Ketones Urine Negative (Negative); Leukocyte Esterase Urine Negative (Negative); Nitrite Urine Negative (Negative); Protein Urine Negative (Negative); Specific Gravity Urine 1.015 (1.000-1.030); Urobilinogen Urine Negative (Negative); pH Urine 5.5 (4.5-7.5)
--- NOTE | 2021-11-09 17:57 | Hospitalist Progress Note ---
Date of Service November 09, 2021 Assessment & Plan (1) Abdominal pain: Plan: 80yomale with PMHx of hypertension, hyperlipidemia, hypothyroidism presented with 1 day of abdominal pain. Abdominal pain Cholelithiasis Acute Pancreatitis Labs are significant for elevated lipase of 1395 as well as abnormal LFTs in a mixed patternpredominantly obstructive (alk phos = 261, T bili = 6.3, AST = 122 and ALT = 173). -CT abd/pelv: cholelithiasis with mild gallbladder wall thickening, pericholecystic stranding suspicious for acute cholecystitis -TGs normal PRN morphine, zofran started on Zosyn, d/c'd (11/09) GI consulted -EUS (11/08) negative -ERCP (11/08): Choledocholithiasis found and removed, biliary stent placed into common bile duct General surgery consulted -cholecystectomy performed 11/08 -f/u 2 weeks in outpatient clinic [facility] -worsening Cr since admission -Cr 1.77, baseline ~ 1.2 -BUN 40, baseline ~30 -received LRs x2L in ED; Cr bumped on maintenance IVF s/p cholecystectomy -I/Os +5L last 24 hours; chronically poor urine output 2/2 BPH but more so after procedure -cont. bladder scans with straight cath as needed - CXR: cardiomegaly with pulm. vasc. congestion - suspect fluid overloaded, will hold fluids for now and give IV lasix 20mg. - trend bmp am - consider nephro consult Hypertension Chronic.Blood pressure wnl. Hold lisinopril and HCTZ in setting of mildly elevated creatinine Coronary artery disease Patient with nonobstructive CAD. Follows with cardiology. Denies chest pain, palpitations. He does appear to have a left bundle branch on EKG troponin wnl - cont. Lipitor hold aspirin for now Hold atorvastatin Left bundle branch block Patient denies chest pain troponin wnl - Echo (11/08): EF 50-55%, abnormal septal motion consistent with conduction abnormality; no sig. changes compared with 09/2019 Pure hypercholesterolemia Chronic. cont. Lipitor FEN/GI: Low fat Code Status: Full DVT PPX: SCDs Dispo: med surg (2) Acute pancreatitis: (3) Hypertension: (4) Coronary artery disease: (5) Left bundle branch block: (6) Pure hypercholesterolemia: Admission and Anticipated Discharge Date Admission Date: November 08, 2021 Supervising Physician Co-Signing Physician Notes Patient seen and examined independently of PGY-2 Dr. Rangel. Agree with history, exam findings, assessment and plan of care as outlined. In brief, Mr. Rogers is an 80 year old male with history of HTN, CAD admitted with choledocholithiasis and acute pancreatitis. VS and nursing notes reviewed. Heart with regular rate and rhythm. Trace edema bilateral lower extremities. Lungs are clear to auscultation. Abdomen is soft. Minimal tenderness in the RUQ. Labs and imaging reviewed. 1. choledocholithiasis. Resolved. Obstructive pattern, US with mild gallbladder thickening. s/p ERCP and lap ish. Appreciate gen surg and GI recs. Post-opera tive pain management per general surgery. Stopped Zosyn since there is no evidence of cholangitis. 2. acute pancreatitis. Resolved. s/p IVF resuscitation and ERCP, lap ish. 3. [facility]. Initially thought to be prerenal, but no improvement despite IVFs and good oral intake. Maybe there is some component of intrarenal vs post-renal. He is 5L in, but < 500mL out. Does have a history of BPH. Check FeNA, ultrasound of kidneys/bladder to evaluate for obstruction/hydronephrosis. 4. pulmonary vascular congestion. Appreciated both on re-exam and on CXR this afternoon. Small dose of IV lasix. 4. HTN. Holding lisinopril and HCTZ for now until Cr improves. 5. CAD. Restarted statin. Dispo: pending clinical improvement. Subjective Patient seen at bedside this morning. Doing well s/p cholecystectomy. Mild RUQ soreness but otherwise denies fevers, N/V, abdominal pain, chest pain, SOB. Poor urine output, however, says not much different from output at home due to BPH. Eating well without complaints. Review of Systems Review of Systems: All systems reviewed & are unremarkable except as noted in HPI & below Physical Exam Physical Exam: Constitutional: in no acute distress, pleasant. Vitals as above. HEENT: No scleral injection or discharge.Moist mucous membranes. Neck: Supple. Trachea midline. No JVD. Lungs: Diminished bibasilar breath sounds on auscultation without wheezes/rho nchi, no increased work of breathing. Cardiac: RRR. No murmurs. Abdomen: Soft, nontender, and nondistended.No guarding. Skin: Laparoscopic incision sites clean, dry, intact without signs of infection Psych: awake, AOx3. Results & Data Results & Data ([facility]) Vital Signs (Past 12 Hours) Vital Signs Temp Pulse Resp BP BP Pulse Ox O2 Del Method 11/09/21 15:34 36.6 C 68 14 133/80 96 Room Air 11/09/21 11:34 36.7 C 72 14 111/74 93 Room Air 11/09/21 07:14 36.4 C L 67 16 133/88 99 Nasal Cannula O2 Flow Rate 11/09/21 15:34 11/09/21 11:34 11/09/21 07:14 2 Laboratory Results 11/09/21 11/09/21 11/09/21 Range/Units 15:09 07:09 07:09 WBC (4.8-10.8) K/ul RBC (4.63-6.08) M/uL Hgb (14.0-18.0) g/dl Hct (40.1-51.0) % MCV (80.0-100.0) fL MCH (25.0-34.0) pg MCHC (32.0-36.0) g/dL RDW Std Deviation (36.4-46.3) fL RDW Coeff of Yony (11.5-14.5) % Plt Count (130-400) K/uL MPV (9.4-12.4) fL Immature Gran % (Auto) % Neut % (Auto) % Lymph % (Auto) % [place] % (Auto) % Eos % (Auto) % Baso % (Auto) % Neut # (Auto) (1.4-6.5) K/uL Lymph # (Auto) (1.2-3.4) K/uL [place] # (Auto) (0.24-0.82) K/uL Eos # (Auto) (0-0.50) K/uL Baso # (Auto) (0-0.2) K/uL Immature Gran # (Auto) (0.00-0.02) K/uL PT 12.1 H (9.0-12.0) Seconds INR 1.1 (0.9-1.1) Sodium 134 L 135 L (136-145) mmol/L Potassium 3.9 3.9 (3.5-5.1) mmol/L Chloride 99 101 (98-107) mmol/L Carbon Dioxide 30 29 (21-32) mmol/L Anion Gap 5 5 (3-11) BUN 40 H 39 H (6-23) mg/dl Creatinine 1.77 H 1.67 H (0.6-1.4) mg/dl Est Cr Clr Drug Dosing 38.5 40.8 ml/min Est GFR ( Amer) 40.6 43.5 ml/min Est GFR (Non-Af Amer) 35.0 37.5 ml/min BUN/Creatinine Ratio 22.6 H 23.4 H (10-20) Glucose 93 130 H (70-99(Fasting)) mg/dl Calcium 7.8 L 7.7 L (8.5-10.1) mg/dl Total Bilirubin 1.7 H D (0.2-1.0) mg/dl Direct Bilirubin 0.6 H (0-0.2) mg/dl AST 47 H (13-39) U/L ALT 87 H (7-52) U/L Alkaline Phosphatase 198 H (34-104) U/L Total Protein 5.8 L D (6.0-8.3) gm/dl Albumin 2.9 L (3.4-5.0) gm/dl 11/09/21 Range/Units 07:09 WBC 9.44 (4.8-10.8) K/ul RBC 3.84 L (4.63-6.08) M/uL Hgb 11.5 L (14.0-18.0) g/dl Hct 34.5 L (40.1-51.0) % MCV 89.8 (80.0-100.0) fL MCH 29.9 (25.0-34.0) pg MCHC 33.3 (32.0-36.0) g/dL RDW Std Deviation 48.9 H (36.4-46.3) fL RDW Coeff of Yony 14.9 H (11.5-14.5) % Plt Count 147 (130-400) K/uL MPV 11.1 (9.4-12.4) fL Immature Gran % (Auto) 0.3 % Neut % (Auto) 76.9 % Lymph % (Auto) 13.5 % [place] % (Auto) 7.8 % Eos % (Auto) 1.1 % Baso % (Auto) 0.4 % Neut # (Auto) 7.26 H (1.4-6.5) K/uL Lymph # (Auto) 1.27 (1.2-3.4) K/uL [place] # (Auto) 0.74 (0.24-0.82) K/uL Eos # (Auto) 0.10 (0-0.50) K/uL Baso # (Auto) 0.04 (0-0.2) K/uL Immature Gran # (Auto) 0.03 H (0.00-0.02) K/uL PT (9.0-12.0) Seconds INR (0.9-1.1) Sodium (136-145) mmol/L Potassium (3.5-5.1) mmol/L Chloride (98-107) mmol/L Carbon Dioxide (21-32) mmol/L Anion Gap (3-11) BUN (6-23) mg/dl Creatinine (0.6-1.4) mg/dl Est Cr Clr Drug Dosing ml/min Est GFR ( Amer) ml/min Est GFR (Non-Af Amer) ml/min BUN/Creatinine Ratio (10-20) Glucose (70-99(Fasting)) mg/dl Calcium (8.5-10.1) mg/dl Total Bilirubin (0.2-1.0) mg/dl Direct Bilirubin (0-0.2) mg/dl AST (13-39) U/L ALT (7-52) U/L Alkaline Phosphatase (34-104) U/L Total Protein (6.0-8.3) gm/dl Albumin (3.4-5.0) gm/dl Resident Activity Tracking Resident Involvement: Resident Care Provided Care Provided: Adult Hospital Medicine (1) Coronary artery disease Associated angina: without angina Coronary Disease-Associated Artery/Lesion type: [place] artery [place] vs. transplanted heart: [place] heart Qualified Code(s): I25.10 - Atherosclerotic heart disease of [place] coronary artery without angina pectoris (2) Hypertension Hypertension type: essential hypertension Qualified Code(s): I10 - Essential (primary) hypertension
[2021-11-09 19:16] LABS: Creatinine Urine Random 77.2 mg/dl
[2021-11-09] MEDS: ATORVASTATIN 40 MG TAB PO SCH (20:06)
--- NOTE | 2021-11-10 07:53 | Hospitalist Progress Note ---
Date of Service November 10, 2021 Assessment & Plan (1) Abdominal pain: Plan: 80yomale with PMHx of hypertension, hyperlipidemia, hypothyroidism presented with 1 day of abdominal pain. Abdominal pain Cholelithiasis Acute Pancreatitis Labs are significant for elevated lipase of 1395 as well as abnormal LFTs in a mixed patternpredominantly obstructive (alk phos = 261, T bili = 6.3, AST = 122 and ALT = 173). -CT abd/pelv: cholelithiasis with mild gallbladder wall thickening, pericholecystic stranding suspicious for acute cholecystitis -TGs normal PRN morphine, zofran started on Zosyn, d/c'd (11/09) GI consulted -EUS (11/08) negative -ERCP (11/08): Choledocholithiasis found and removed, biliary stent placed into common bile duct General surgery consulted -cholecystectomy performed 11/08 -f/u 2 weeks in outpatient clinic [facility] -worsening Cr since admission -Cr 1.77, baseline ~ 1.2 -BUN 40, baseline ~30 -received LRs x2L in ED; Cr bumped on maintenance IVF s/p cholecystectomy -I/Os +5L last 24 hours; chronically poor urine output 2/2 BPH but more so after procedure -cont. bladder scans with straight cath as needed - CXR: cardiomegaly with pulm. vasc. congestion - suspect fluid overloaded, will hold fluids for now and give IV lasix 20mg. - trend bmp am - consider nephro consult Hypertension Chronic.Blood pressure wnl. Hold lisinopril and HCTZ in setting of mildly elevated creatinine Coronary artery disease Patient with nonobstructive CAD. Follows with cardiology. Denies chest pain, palpitations. He does appear to have a left bundle branch on EKG troponin wnl - cont. Lipitor hold aspirin for now Hold atorvastatin Left bundle branch block Patient denies chest pain troponin wnl - Echo (11/08): EF 50-55%, abnormal septal motion consistent with conduction abnormality; no sig. changes compared with 09/2019 Pure hypercholesterolemia Chronic. cont. Lipitor FEN/GI: Low fat Code Status: Full DVT PPX: SCDs Dispo: med surg (2) Acute pancreatitis: (3) Hypertension: (4) Coronary artery disease: (5) Left bundle branch block: (6) Pure hypercholesterolemia: Admission and Anticipated Discharge Date Admission Date: November 08, 2021 Subjective Patient seen at bedside this morning. Doing well s/p cholecystectomy. Mild RUQ soreness but otherwise denies fevers, N/V, abdominal pain, chest pain, SOB. Poor urine output, however, says not much different from output at home due to BPH. Eating well without complaints. Review of Systems Review of Systems: All systems reviewed & are unremarkable except as noted in HPI & below Physical Exam Physical Exam: Constitutional: in no acute distress, pleasant. Vitals as above. HEENT: No scleral injection or discharge.Moist mucous membranes. Neck: Supple. Trachea midline. No JVD. Lungs: Diminished bibasilar breath sounds on auscultation without wheezes/rhonchi, no increased work of breathing. Cardiac: RRR. No murmurs. Abdomen: Soft, nontender, and nondistended.No guarding. Skin: Laparoscopic incision sites clean, dry, intact without signs of infection Psych: awake, AOx3. Results & Data Results & Data ([facility]) Vital Signs (Past 12 Hours) Vital Signs Temp Pulse Resp BP Pulse Ox O2 Del Method 11/09/21 20:08 36.6 C 67 18 135/77 96 Room Air Laboratory Results 11/09/21 11/09/21 11/09/21 Range/Units 17:15 17:15 15:09 Sodium 134 L (136-145) mmol/L Potassium 3.9 (3.5-5.1) mmol/L Chloride 99 (98-107) mmol/L Carbon Dioxide 30 (21-32) mmol/L Anion Gap 5 (3-11) BUN 40 H (6-23) mg/dl Creatinine 1.77 H (0.6-1.4) mg/dl Est Cr Clr Drug Dosing 38.5 ml/min Est GFR ( Amer) 40.6 ml/min Est GFR (Non-Af Amer) 35.0 ml/min BUN/Creatinine Ratio 22.6 H (10-20) Glucose 93 (70-99(Fasting)) mg/dl Calcium 7.8 L (8.5-10.1) mg/dl Total Bilirubin (0.2-1.0) mg/dl Direct Bilirubin (0-0.2) mg/dl AST (13-39) U/L ALT (7-52) U/L Alkaline Phosphatase (34-104) U/L Total Protein (6.0-8.3) gm/dl Albumin (3.4-5.0) gm/dl Urine Color Yellow Urine Appearance Clear (Clear) Urine pH 5.5 (4.5-7.5) Ur Specific Cord 1.015 (1.000-1.030) Urine Protein Negative (Negative) Urine Glucose (UA) Negative (Negative) Urine Ketones Negative (Negative) Urine Blood Negative (Negative) Urine Nitrite Negative (Negative) Urine Bilirubin Negative (Negative) Urine Urobilinogen Negative (Negative) Ur Leukocyte Esterase Negative (Negative) Ur Random Creatinine 77.2 mg/dl Ur Random Sodium 14 mmol/L 11/09/21 Range/Units 07:09 Sodium 135 L (136-145) mmol/L Potassium 3.9 (3.5-5.1) mmol/L Chloride 101 (98-107) mmol/L Carbon Dioxide 29 (21-32) mmol/L Anion Gap 5 (3-11) BUN 39 H (6-23) mg/dl Creatinine 1.67 H (0.6-1.4) mg/dl Est Cr Clr Drug Dosing 40.8 ml/min Est GFR ( Amer) 43.5 ml/min Est GFR (Non-Af Amer) 37.5 ml/min BUN/Creatinine Ratio 23.4 H (10-20) Glucose 130 H (70-99(Fasting)) mg/dl Calcium 7.7 L (8.5-10.1) mg/dl Total Bilirubin 1.7 H D (0.2-1.0) mg/dl Direct Bilirubin 0.6 H (0-0.2) mg/dl AST 47 H (13-39) U/L ALT 87 H (7-52) U/L Alkaline Phosphatase 198 H (34-104) U/L Total Protein 5.8 L D (6.0-8.3) gm/dl Albumin 2.9 L (3.4-5.0) gm/dl Urine Color Urine Appearance (Clear) Urine pH (4.5-7.5) Ur Specific Cord (1.000-1.030) Urine Protein (Negative) Urine Glucose (UA) (Negative) Urine Ketones (Negative) Urine Blood (Negative) Urine Nitrite (Negative) Urine Bilirubin (Negative) Urine Urobilinogen (Negative) Ur Leukocyte Esterase (Negative) Ur Random Creatinine mg/dl Ur Random Sodium mmol/L (1) Hypertension Hypertension type: essential hypertension Qualified Code(s): I10 - Essential (primary) hypertension (2) Coronary artery disease Coronary Disease-Associated Artery/Lesion type: [place] artery [place] vs. transplanted heart: [place] heart Associated angina: without angina Qualified Code(s): I25.10 - Atherosclerotic heart disease of [place] coronary artery without angina pectoris
[2021-11-10] MEDS: buPROPion SR 150 MG TABCR PO SCH (08:01)
[2021-11-10] MEDS: PANTOprazole 40 MG TAB PO SCH (08:02)
[2021-11-10] MEDS: FOLIC ACID 400 MCG TAB PO SCH (08:02)
[2021-11-10 08:56] LABS: Basophils # (auto) 0.05 K/uL (0-0.2); Basophils % (auto) 0.5 %; Eosinophils # (auto) 0.24 K/uL (0-0.50); Eosinophils % (auto) 2.5 %; Hematocrit (blood only) 37.8 % (40.1-51.0); Hemoglobin 12.3 g/dl (14.0-18.0); Immature Granulocytes # (auto) 0.03 K/uL (0.00-0.02); Immature Granulocytes % (auto) 0.3 %; Lymphocytes # (auto) 1.48 K/uL (1.2-3.4); Lymphocytes % (auto) 15.2 %; Mean Corpuscular Hemoglobin 29.5 pg (25.0-34.0); Mean Corpuscular Hgb Conc 32.5 g/dL (32.0-36.0); Mean Corpuscular Volume 90.6 fL (80.0-100.0); Mean Platelet Volume 11.4 fL (9.4-12.4); Monocytes # (auto) 0.78 K/uL (0.24-0.82); Neutrophils # (auto) 7.16 K/uL (1.4-6.5); Neutrophils % (auto) 73.5 %; Platelet Count 202 K/uL (130-400); RDW Coefficient of Variation 15.1 % (11.5-14.5); RDW Standard Deviation 50.1 fL (36.4-46.3); Red Blood Count 4.17 M/uL (4.63-6.08); White Blood Count 9.74 K/ul (4.8-10.8)
[2021-11-10 09:19] LABS: Albumin Level 3.3 gm/dl (3.4-5.0); Bilirubin,Total 1.2 mg/dl (0.2-1.0); Calcium 7.9 mg/dl (8.5-10.1); Creatinine Clr Calc Pharmacy 43.7 ml/min; Est GFR (African American) 47.2 ml/min; Est GFR (Non-African American) 40.8 ml/min; Globulin 3.3 gm/dl (2.5-4.0); Potassium 3.8 mmol/L (3.5-5.1); Total Protein 6.6 gm/dl (6.0-8.3)
--- NOTE | 2021-11-10 09:36 | Surgery Progress Note ---
Date of Service November 10, 2021 Assessment & Plan (1) History of laparoscopic cholecystectomy: Plan: s/p lap ish and ercp, doing well. Cr down from yesterday okay to d/c from surgery standpoint f/u in 2 weeks activity restrictions and wound care instructions given f/u with gi for stent removal as outpatient return precautions given Admission and Anticipated Discharge Date Admission Date: November 08, 2021 Subjective POD#2 lap ish and ercp. Tolerating diet, kept for elevated cr. Physical Exam Constitutional: WD/WN, vitals as above Gastrointestinal (Abdomen): normal bowel sounds, soft, nontender, no hepatosplenomegaly Inspection/Auscultation: + abdominal surgical incision (no infection) Results & Data ([facility]) Vital Signs (Past 12 Hours) Vital Signs Temp Pulse Resp BP Pulse Ox O2 Del Method 11/10/21 08:07 36.5 C 50 L 14 143/83 H 92 Room Air Laboratory Results Laboratory Results - last 24 hr 11/09/21 11/09/21 11/09/21 15:09 17:15 17:15 WBC RBC Hgb Hct MCV MCH MCHC RDW Std Deviation RDW Coeff of Yony Plt Count MPV Immature Gran % (Auto) Neut % (Auto) Lymph % (Auto) [place] % (Auto) Eos % (Auto) Baso % (Auto) Neut # (Auto) Lymph # (Auto) [place] # (Auto) Eos # (Auto) Baso # (Auto) Immature Gran # (Auto) Sodium 134 L Potassium 3.9 Chloride 99 Carbon Dioxide 30 Anion Gap 5 BUN 40 H Creatinine 1.77 H Est Cr Clr Drug Dosing 38.5 Est GFR ( Amer) 40.6 Est GFR (Non-Af Amer) 35.0 BUN/Creatinine Ratio 22.6 H Glucose 93 Calcium 7.8 L Total Bilirubin AST ALT Alkaline Phosphatase Total Protein Albumin Globulin Albumin/Globulin Ratio Urine Color Yellow Urine Appearance Clear Urine pH 5.5 Ur Specific [place] 1.015 Urine Protein Negative Urine Glucose (UA) Negative Urine Ketones Negative Urine Blood Negative Urine Nitrite Negative Urine Bilirubin Negative Urine Urobilinogen Negative Ur Leukocyte Esterase Negative Ur Random Creatinine 77.2 Ur Random Sodium 14 11/10/21 11/10/21 08:36 08:36 WBC 9.74 RBC 4.17 L Hgb 12.3 L Hct 37.8 L MCV 90.6 MCH 29.5 MCHC 32.5 RDW Std Deviation 50.1 H RDW Coeff of Yony 15.1 H Plt Count 202 MPV 11.4 Immature Gran % (Auto) 0.3 Neut % (Auto) 73.5 Lymph % (Auto) 15.2 [place] % (Auto) 8.0 Eos % (Auto) 2.5 Baso % (Auto) 0.5 Neut # (Auto) 7.16 H Lymph # (Auto) 1.48 [place] # (Auto) 0.78 Eos # (Auto) 0.24 Baso # (Auto) 0.05 Immature Gran # (Auto) 0.03 H Sodium 135 L Potassium 3.8 Chloride 102 Carbon Dioxide 27 Anion Gap 6 BUN 39 H Creatinine 1.56 H Est Cr Clr Drug Dosing 43.7 Est GFR ( Amer) 47.2 Est GFR (Non-Af Amer) 40.8 BUN/Creatinine Ratio 25.0 H Glucose 114 H Calcium 7.9 L Total Bilirubin 1.2 H AST 34 ALT 72 H Alkaline Phosphatase 207 H Total Protein 6.6 Albumin 3.3 L Globulin 3.3 Albumin/Globulin Ratio 1.0 Urine Color Urine Appearance Urine pH Ur Specific [place] Urine Protein Urine Glucose (UA) Urine Ketones Urine Blood Urine Nitrite Urine Bilirubin Urine Urobilinogen Ur Leukocyte Esterase Ur Random Creatinine Ur Random Sodium PG Care Time/CCT Total # of Minutes Spent Total Time Spent with Patient: Total time spent is greater than 50% in coordination of care (as documented) at patient's floor/unit and/or counseling patient: Coding Level of Care Code None Diagnoses History of laparoscopic cholecystectomy Z90.49
[2021-11-10] MEDS ORDERED: FUROSEMIDE INJ 20 MG/2 ML VIAL IV ONE ×2 (09:45→16:05)
[2021-11-10 15:13] LABS: BUN Creatinine Ratio 24.7 (10-20); Calcium 8.3 mg/dl (8.5-10.1); Creatinine Clr Calc Pharmacy 46.7 ml/min; Est GFR (African American) 51.2 ml/min; Est GFR (Non-African American) 44.2 ml/min
--- NOTE | 2021-11-10 16:38 | Discharge Summary ---
Date of Service November 10, 2021 Admission HPI Per Admitting Provider Kermit Rogers is a pleasant 80-year-old male with history of hypertension, hyperlipidemia, hypothyroidism presenting with 1 day of abdominal pain. Patient reports the pain is severe located in the midepigastric area as well as diffusely across the lower abdomen. The pain began yesterday and resolved after several hours. Then began again today after a meal. Patient thought possibly he had eaten something questionable therefore self-induced vomiting x3 episodes with no improvement in abdominal pain. Patient denies fever, chills, chest pain, cough, shortness of breath. Denies nausea or diarrhea. He does have baseline dyspnea on exertion which he states is stable. Denies change in color of his skin or eyes. Does note that his urine today was very dark and tea colored. He is unaware of any liver or gallbladder disease. Has never had pancreatitis. In the ER he is afebrile, hemodynamic stable, no acute distress Principal Diagnosis Cholelithiasis with cholecystitis, pancreatitis, choledocholithiasis Discharge Exam Constitutional: in no acute distress, pleasant. Vitals as above. HEENT: No scleral injection or discharge.Moist mucous membranes. Neck: Supple. Trachea midline. No JVD. Lungs: Diminished bibasilar breath sounds on auscultation without wheezes/rhonchi, no increased work of breathing. Cardiac: RRR. No murmurs. Abdomen: Soft, nontender, and nondistended.No guarding. Skin: Laparoscopic incision sites clean, dry, intact without signs of infection Psych: awake, AOx3 Discharge Data Allergies Allergy/AdvReac Type Severity Reaction Status Date / Time No Known Drug Allergies Allergy Unknown Verified 11/07/21 22:35 Consultations 11/08/21 00:25 ED Decision to Admit Stat 11/08/21 02:24 Consult Gastroenterology Routine 11/08/21 09:04 Consult General Surgery Routine Procedures Performed Operation Date: 11/08/21 12:30 Actual Procedures p Endoscopic Ultrasonography Upper(Not Applicable) - Levi Alfaro MD s Endoscopic Retrograde Cholangiopancreatogram(Not Applicable) - Levi Alfaro MD s Laparoscopic Cholecystectomy(Not Applicable) - Pancho Pollock, DO, FACS Ordered Studies Laboratory Results WBC 9.74 K/ul (4.8-10.8) 11/10/21 08:36 RBC 4.17 M/uL (4.63-6.08) L 11/10/21 08:36 Hgb 12.3 g/dl (14.0-18.0) L 11/10/21 08:36 Hct 37.8 % (40.1-51.0) L 11/10/21 08:36 MCV 90.6 fL (80.0-100.0) 11/10/21 08:36 MCH 29.5 pg (25.0-34.0) 11/10/21 08:36 MCHC 32.5 g/dL (32.0-36.0) 11/10/21 08:36 RDW Std Deviation 50.1 fL (36.4-46.3) H 11/10/21 08:36 RDW Coeff of Yony 15.1 % (11.5-14.5) H 11/10/21 08:36 Plt Count 202 K/uL (130-400) 11/10/21 08:36 MPV 11.4 fL (9.4-12.4) 11/10/21 08:36 Immature Gran % (Auto) 0.3 % 11/10/21 08:36 Neut % (Auto) 73.5 % 11/10/21 08:36 Lymph % (Auto) 15.2 % 11/10/21 08:36 [place] % (Auto) 8.0 % 11/10/21 08:36 Eos % (Auto) 2.5 % 11/10/21 08:36 Baso % (Auto) 0.5 % 11/10/21 08:36 Neut # (Auto) 7.16 K/uL (1.4-6.5) H 11/10/21 08:36 Lymph # (Auto) 1.48 K/uL (1.2-3.4) 11/10/21 08:36 [place] # (Auto) 0.78 K/uL (0.24-0.82) 11/10/21 08:36 Eos # (Auto) 0.24 K/uL (0-0.50) 11/10/21 08:36 Baso # (Auto) 0.05 K/uL (0-0.2) 11/10/21 08:36 Immature Gran # (Auto) 0.03 K/uL (0.00-0.02) H 11/10/21 08:36 PT 12.1 Seconds (9.0-12.0) H 11/09/21 07:09 INR 1.1 (0.9-1.1) 11/09/21 07:09 Sodium 137 mmol/L (136-145) 11/10/21 14:36 Potassium 4.0 mmol/L (3.5-5.1) 11/10/21 14:36 Chloride 101 mmol/L (98-107) 11/10/21 14:36 Carbon Dioxide 31 mmol/L (21-32) 11/10/21 14:36 Anion Gap 5 (3-11) 11/10/21 14:36 BUN 36 mg/dl (6-23) H 11/10/21 14:36 Creatinine 1.46 mg/dl (0.6-1.4) H 11/10/21 14:36 Est Cr Clr Drug Dosing 46.7 ml/min 11/10/21 14:36 Est GFR ( Amer) 51.2 ml/min 11/10/21 14:36 Est GFR (Non-Af Amer) 44.2 ml/min 11/10/21 14:36 BUN/Creatinine Ratio 24.7 (10-20) H 11/10/21 14:36 Glucose 106 mg/dl (70-99(Fasting)) H 11/10/21 14:36 Calcium 8.3 mg/dl (8.5-10.1) L 11/10/21 14:36 Total Bilirubin 1.2 mg/dl (0.2-1.0) H 11/10/21 08:36 Direct Bilirubin 0.6 mg/dl (0-0.2) H 11/09/21 07:09 AST 34 U/L (13-39) 11/10/21 08:36 ALT 72 U/L (7-52) H 11/10/21 08:36 Alkaline Phosphatase 207 U/L (34-104) H 11/10/21 08:36 Troponin I High Sens 18.2 pg/ml (0-20) 11/07/21 21:33 Total Protein 6.6 gm/dl (6.0-8.3) 11/10/21 08:36 Albumin 3.3 gm/dl (3.4-5.0) L 11/10/21 08:36 Globulin 3.3 gm/dl (2.5-4.0) 11/10/21 08:36 Albumin/Globulin Ratio 1.0 (0.9-2) 11/10/21 08:36 Lipase 1395 U/L (11-82) H 11/07/21 21:33 Urine Color Yellow 11/09/21 17:15 Urine Appearance Clear (Clear) 11/09/21 17:15 Urine pH 5.5 (4.5-7.5) 11/09/21 17:15 Ur Specific [place] 1.015 (1.000-1.030) 11/09/21 17:15 Urine Protein Negative (Negative) 11/09/21 17:15 Urine Glucose (UA) Negative (Negative) 11/09/21 17:15 Urine Ketones Negative (Negative) 11/09/21 17:15 Urine Blood Negative (Negative) 11/09/21 17:15 Urine Nitrite Negative (Negative) 11/09/21 17:15 Urine Bilirubin Negative (Negative) 11/09/21 17:15 Urine Urobilinogen Negative (Negative) 11/09/21 17:15 Ur Leukocyte Esterase Negative (Negative) 11/09/21 17:15 Urine WBC (Auto) 0 /hpf (0-5) 11/07/21 22:38 Urine RBC (Auto) 0-4 /hpf (0-4) 11/07/21 22:38 U Hyaline Cast (Auto) 1-5 /lpf (0-5) 11/07/21 22:38 U Epithel Cells (Auto) 0-5 /lpf (0-5) 11/07/21 22:38 Urine Bacteria (Auto) Negative (Negative) 11/07/21 22:38 Ur Random Creatinine 77.2 mg/dl 11/09/21 17:15 Ur Random Sodium 14 mmol/L 11/09/21 17:15 SARS-CoV-2, RNA, NAAT NEGATIVE (NEGATIVE) 11/08/21 01:00 Impressions Abdomen/Pelvis CT 11/07/21 21:[address] WITH IV CONTRAST CT DOSE: 933.18 mGy.cm HISTORY: Acute generalized abdominal pain abd pain TECHNIQUE: Multiaxial CT images of the abdomen and pelvis were performed following the IV administration of 94 cc of Optiray, A dose lowering technique was utilized adhering to the principles of ALARA. COMPARISON STUDY: CT abdomen and pelvis 06/25/2017 FINDINGS: Cardiomegaly. Prior median sternotomy with aortic valvular prosthesis. Mild subsegmental bibasilar atelectasis/scarring. There is no pneumatosis or pneumoperitoneum. The spleen, mildly atrophic pancreas and adrenal glands are unremarkable. Cholelithiasis with mild gallbladder wall thickening and trace pericholecystic stranding. Unremarkable liver. Mild cortical thinning of the kidneys with mild bilateral perinephric stranding. There are a few small renal sinus cysts noted bilaterally. There are a few subcentimeter renal hypodensities which are too small to characterize. 1.2 cm cyst of the superior pole right kidney. No renal or ureteral calculi or hydronephrosis identified. Brachytherapy seeds are noted within the mildly enlarged prostate. Urinary bladder wall thickening with trabeculation. Diverticulum of the urinary bladder measure up to 3.6 cm on the right. Atherosclerosis of the abdominal aorta without aneurysm. There is no lymphadenopathy. No bowel obstruction or bowel wall thickening. Colonic diverticulosis. Normal appendix. Tiny fat filled periumbilical hernia. Degenerative changes of the spine, pelvis and hips. Subacute appearing nondisplaced fracture of the posterior bilateral 12th ribs and L1 transverse processes. Mild generalized body wall edema. IMPRESSION: 1. Cholelithiasis with mild gallbladder wall thickening and pericholecystic stranding is suspicious for acute cholecystitis. Correlate with clinical exam findings. 2. No bowel obstruction or bowel wall thickening. 3. Colonic diverticulosis. 4. Evidence of chronic bladder outlet obstruction. 5. Additional findings as above. ACT 112: Negative or not required by law. The above report was generated using voice recognition software. It may contain grammatical, syntax or spelling errors. Electronically signed by: Quinton Wilde M.D. 11/08/2021 8:03 AM Gallbladder Ultrasound 11/08/21 00:58 ABDOMINAL ULTRASOUND, RIGHT UPPER QUADRANT HISTORY: Right upper quadrant pain. ? Choledocholithiasis. COMPARISON: Abdomen and pelvis CT 10/30/2021. FINDINGS: Pancreas: The pancreatic head and tail are obscured by overlying bowel gas. The remaining portions of the pancreas are within normal limits. Liver: Unremarkable. Gallbladder: Multiple gallstones and a small amount of sludge. Gallbladder wall is mildly thickened measuring up to 3.5 mm. Negative sonographic Castaneda sign. CBD: 5 mm. Right kidney: No hydronephrosis. A 12 mm upper pole cyst. IMPRESSION: 1. Multiple gallstones and mild gallbladder wall thickening. However, there is a negative sonographic Castaneda sign. An early acute cholecystitis cannot be excluded. Consider follow-up nuclear medicine HIDA scan. 2. A 12 mm right renal cyst. ACT 112: Negative or not required by law. Electronically signed by: Mendoza Uriostegui M.D. 11/08/2021 7:00 AM Chest X-Ray 11/09/21 16:50 XR chest 1V portable HISTORY: 80 years-old Male diminished breath sounds acute shortness of breath COMPARISON: Chest and rib radiographs 05/27/2020 TECHNIQUE: Portable AP view of the chest FINDINGS: Cardiac silhouette is enlarged. Prior median sternotomy with cardiac valvular prosthesis. Healed chronic left-sided rib fractures. Unchanged right hemidiaphragmatic elevation. Pulmonary vascular congestion. No pneumothorax or large pleural effusion. Mild subsegmental bibasilar densities. Degenerative changes of the shoulders and spine. IMPRESSION: 1. Cardiomegaly with pulmonary vascular congestion. 2. Unchanged right hemidiaphragmatic elevation with mild bibasilar densities favoring atelectasis. ACT 112: Negative or not required by law. The above report was generated using voice recognition software. It may contain grammatical, syntax or spelling errors. Electronically signed by: Quinton Wilde M.D. 11/09/2021 5:17 PM Hospital Course (1) Abdominal pain: 80yomale with PMHx of hypertension, hyperlipidemia, hypothyroidism presented with 1 day of abdominal pain. Abdominal pain Cholelithiasis Acute Pancreatitis Labs are significant for elevated lipase of 1395 as well as abnormal LFTs in a mixed patternpredominantly obstructive (alk phos = 261, T bili = 6.3, AST = 122 and ALT = 173). -CT abd/pelv: cholelithiasis with mild gallbladder wall thickening, pericholecystic stranding suspicious for acute cholecystitis -TGs normal PRN morphine, zofran started on Zosyn, d/c'd (11/09) GI consulted -EUS (11/08) negative -ERCP (11/08): Choledocholithiasis found and removed, biliary stent placed into common bile duct General surgery consulted -cholecystectomy performed 11/08 -f/u 2 weeks in outpatient clinic CATRACHITO, improving -initially worsening Cr since admission -Cr 1.77 (11/09), baseline ~ 1.2 -BUN 40 (36), baseline ~30 -received LRs x2L in ED; Cr bumped on maintenance IVF s/p cholecystectomy -CXR: cardiomegaly with pulm. vasc. congestion -I/Os +5L (11/09); chronically poor urine output 2/2 BPH but more so after procedure -suspected fluid overloaded, fluids held (11/09), IV lasix 20mg doses given -(11/10) Cr 1.46, BUN 36; kidney function improving with diuresis, will give one more IV lasix 20mg dose prior to discharge -Repeat CMP in 2 days, script provided; f/u PCP later this week -otherwise continue home regimen medications including the HCZT which should act as a mild diuresis Hypertension Chronic.Blood pressure wnl. cont. home lisinopril and HCTZ Coronary artery disease Left Bundle Branch Block Patient with nonobstructive CAD. Follows with cardiology. Denies chest pain, palpitations. He does appear to have a left bundle branch on EKG. troponin wnl -Echo (11/08): EF 50-55%, abnormal septal motion consistent with conduction abnormality; no sig. changes compared with 09/2019 -cont. Lipitor cont. home ASA -cont. home lisinopril Pure hypercholesterolemia Chronic. cont. Lipitor (2) Acute pancreatitis: (3) Hypertension: (4) Coronary artery disease: (5) Left bundle branch block: (6) Pure hypercholesterolemia: Total Time Total Time Spent Total Time Spent (In Minutes): 30 Discharge Plan Discharge Items Patient Disposition: Home - Self-Care Reason For Visit: PANCREATITIS Discharge Diagnosis: Cholelithiasis with cholecystitis, pancreatitis, choledocholithiasis Activity: Per Instructions section Lifting: No more than 10 pounds Bathing Comment: Can shower over skin glue Exercise/Sports: Wait until after follow-up appointment Driving/Machine Use: Resume 3 days after discharge Non-emergency contact: Primary Care Provider Call non-emergency contact if: you have any medication questions, your symptoms worsen, your pain is not controlled and you have a fever Follow-up/Referrals: Juan Manuel Early III, CRNP [Primary Care Provider] - (Please make appointment for later this week. He will be getting a comprehensive metabolic panel on 11/12/2021 to evaluate for resolution of CATRACHITO.) Pancho Pollock DO, MORALES [Physician] - (Please call to make an appt in 2 weeks) Diet: Regular Ambulatory Orders: Comprehensive Metabolic Panel (Routine) Timeframe: 2 Days Location: Determined by Patient Ordered By: Randall Coleman Attending Provider Instructions: You were admitted to the hospital for abdominal pain which was found to be due to pancreatitis and cholecystitis requiring the removal of the gallbladder. After surgery you developed an acute kidney injury which was likely due to having too much fluid inside of you with decreased urinary output due to your prostate. We gave you multiple doses of lasix (water pill) in the hospital and began to see continual improvement in your kidney function. Although not yet within normal range, we do believe we are headed in the right direction. Prior to discharge we will give you one more dose of Lasix. You may restart your medications tonight as you were taking prior to being in the hospital. As for your recent surgery, general surgery should contact you in the next 1-2 weeks to schedule an appointment for follow up. Homework: -I have given you a paper slip that includes a blood lab (CMP- comprehensive metabolic panel). I would like you to obtain in 2 days (11/12/2021). You can [facility] to [facility] lab you typically get blood drawn from. These results will be sent to your primary care doctor (Dr. Early- [phone]), who you should also follow up with late this week for further instruction. Thank you for allowing us to participate in your care. Pending Studies at Discharge: No Stand-Alone Forms: [employer], Smoking Cessation Medications and DC Order Prescriptions: Continued atorvastatin 80 mg tablet 80 mg PO HS Qty: 90 3RF bupropion HCl 150 mg tablet sustained-release 12 hr 150 mg PO BID Qty: 180 2RF lisinopril 20 mg tablet 20 mg PO BID Qty: 180 1RF aspirin 81 mg Tablet,Delayed Release (Dr/Ec) 81 mg PO QAM folic acid 400 mcg Tablet 0.4 mg PO QAM pantoprazole [Protonix] 40 mg tablet,delayed release (DR/EC) 40 mg PO QAM amoxicillin 500 mg tablet 2,000 mg PO ONCE PRN (Reason: Prophylaxis) Rx Instructions: take 1 hour before dental appointment hydrochlorothiazide 25 mg tablet 25 mg PO QAM fluocinonide 0.05 % Cream 1 applic TOPICAL BID PRN (Reason: .rash) Discharge Orders: Discharge Order (Routine); Ordered 11/10/21 Ordered By: Randall Jauregui/Other Patient Handouts: After Gallbladder Surgery, Taking a Diuretic Admission Data Admit Date/Time: 11/08/21 00:53 Attending Provider: Desiree Mullins Admit Provider: Ninfa Petersen Primary Care Provider: Juan Manuel Ealry III Other Providers: Ninfa Petersen ; Levi Alfaro ; Pancho Pollock. Other Interventions: Discharge Summary Assessment (RN) Last Done: 11/10/21 16:52 Supervising Physician Co-Signing Physician Notes Patient seen and examined with PGY-2 Dr. Painting. Agree with history, exam findings, assessment and plan of care as outlined. In brief, Mr. Rogers is an 80 year old male with history of HTN, CAD admitted with choledocholithiasis and acute pancreatitis. Doing well this morning. No complaints. VS and nursing notes reviewed. Heart with regular rate and rhythm. Trace edema bilateral lower extremities. Lungs are clear to auscultation. Abdomen is soft. Minimal tenderness in the RUQ. Labs and imaging reviewed. 1. choledocholithiasis. Resolved. Obstructive pattern, US with mild gallbladder thickening. s/p ERCP and lap ish. Appreciate gen surg and GI recs. Post- operative pain management per general surgery. Stopped Zosyn since there is no evidence of cholangitis. 2. acute pancreatitis. Resolved. s/p IVF resuscitation and ERCP, lap ish. 3. CATRACHITO. Initially thought to be prerenal, but no improvement despite IVFs and good oral intake. Suspect this may be due to the copious fluids he received in the OR. Cr improved with diuresis last night and this morning. Given one more dose of Lasix prior to discharge and will follow up with BMP on Thursday. 4. pulmonary vascular congestion. Due to the copious IVFs he received in the OR. Improved after IV Lasix. 4. HTN. Can restart home lisinopril and HCTZ on discharge. 5. CAD. Continue statin. Dispo: discharge home today. Will need repeat BMP on . This has already been ordered. Follow up with PCP within 1 week. Resident Activity Tracking Resident Involvement: Resident Care Provided Care Provided: Adult [facility]
== END 2021-11-10 17:31 | disposition home or self-care (01) | DRG 417 ==
LOC: ED 21:17 → EDINP 11-08 00:53 → SUATTDRO 11-08 00:53 → EDINP 11-08 15:18 → 3E 11-08 16:41

== ENCOUNTER 2022-04-09 18:23 | Inpatient (IN) ==
[2022-04-09] MEDS ORDERED: RAPID SEQUENCE INDUCTION BAG ONE (18:24)
[2022-04-09] MEDS ORDERED: 0.2 MICRON FILTER SET 1 EACH IV ONE (18:38)
[2022-04-09] MEDS ORDERED: SODIUM CHLORIDE 0.9% 500 ML IV ONE (18:38)
[2022-04-09] MEDS ORDERED: AMIODARONE / D5W 360 MG/200 ML BAG IV ONE (18:38)
[2022-04-09 18:44] LABS: iSTAT Creatinine 1.5 mg/dl (0.6-1.3); iSTAT Hemoglobin 13.9 g/dl (14.0-18.0); iSTAT Ionized Calcium 1.13 mmol/l (1.12-1.32); iSTAT Potassium 3.6 mmol/L (3.3-5.0)
--- NOTE | 2022-04-09 19:01 | XRay Report ---
XR chest 1V portable HISTORY: 81 years-old Male Chest pain, nonspecific COMPARISON: 11/09/2021 TECHNIQUE: AP view of the chest FINDINGS: Cardiac silhouette is enlarged. Prior median sternotomy with cardiac valvular prosthesis. No pneumoth orax or overt pulmonary edema. Blunting of the costophrenic angles with mild left lung base densities . Degenerative changes of the shoulders and spine. IMPRESSION: 1. Cardiomegaly without pulmonary edema. 2. Trace pleural effusions with mild left lung base opacities, likely atelectatic. ACT 112: Negative or not required by law. The above report was generated using voice recognition software. It may contain grammatical, syntax o r spelling errors. Electronically signed by: Quinton Wilde M.D. 04/09/2022 7:00 PM
--- NOTE | 2022-04-09 19:03 | Emergency Department Note ---
Impression & Plan Ventricular tachycardia, Left bundle branch block, New onset atrial fibrillation, COVID-19, Elevated troponin ED Provider Note NAME: TROY TOSCANO AGE: 81 SEX: M ARRIVES VIA: Ambulance INFORMANT: Patient ED PROVIDER(S): Wolfgang Montiel MD CHIEF COMPLAINT: Unstable Ventricular tachycardia. PLAN: Disposition: Admit MEDICAL DECISION MAKING: The patient is a pleasant 81-year-old gentleman with a past medical history of bioprosthetic aortic valve replacement, history of nonobstructive CAD, h/o LBBB, pulmonary hypertension, hypertension, hyperlipidemia who presents to the emergency department via EMS for evaluation of generalized weakness and feeling sick for the past week with ongoing dizziness which was the initial complaint however upon EMS evaluation was treated for unstable ventricular tachycardia. I did discuss the case with EMS crew on medical command call prior to arrival and reviewed transmitted 12 leads. They reported that the patient was noted to be in a wide-complex tachycardia in the 200s with blood pressure in the 90s/50s where the patient reported symptoms of lightheadedness and appeared confused. The patient was treated with 150 mg of amiodarone but with no change in his rate. He was subsequently given 150 mcg of fentanyl as well as 2.5 mg of Versed and was subsequently received electrical cardioversion with 100 J with conversion to atrial fibrillation in the 60s. However they did note that the patient appeared pale and cyanotic was placed on 100% O2 via nonrebreather. His blood pressure was unable to be obtained and his heart rate had declined into the 30s which appeared to be in a idioventricular rhythm. This had occurred as the EMS crew was arriving to the emergency department and was immediately paced with blood pressure improving to the 160s/80s. Upon our initial evaluation pacing was discontinued and the patient's spontaneous rhythm had resumed in atrial fibrillation in the 60s-80s range. Patient was initially not responding to painful stimulus and it was suspected that this may have been related to his fentanyl and Versed prior to his shock. He did appear to have some RADHA with sno ring and so was placed on CPAP which did help with his respiratory function. After approximately 10 minutes the patient suddenly opened his eyes and was answering questions appropriately moving all extremities equally. Of note, the patient confirms that he has been feeling ill for the past week with weakness and frequent dizziness but he reports he has had mild cough and congestion but is not particularly new and has been ongoing for several months. He denies diarrhea. He denies vomiting. He feels like he has been eating and drinking okay. EKG upon discontinuing pacing demonstrated atrial fibrillation with left bundle branch block similar to the patient's prior. no sgarbossa criteria. Chest x-ray with trace pleural effusions and left midlung opacities likely atelectasis. WBC normal limits. H/H similar to prior. Platelets 121K, nonspecific and slightly decreased from prior. Chemistry with with creatinine of 1.45 within prior range of values. Chemistry without metabolic acidosis. Electrolytes without significant abnormality. AST and ALT mildly elevated 142 and 102, respectively. Nonspecific. Total bilirubin within normal limits. High- sensitivity troponin 44, mildly elevated nonspecific. Lipase not elevated. TSH within normal limits. The patient was evaluated repeatedly and continued to remain hemodynamically stable with A. fib but no recurrence of VT though frequent PVCs noted. He was taken off of BiPAP as his mental status had improved. Case was discussed with [facility]ology on-call, Dr. Bobo who agrees with management thus far with amiodarone. Respiratory viral panel subsequently resulted and was positive for COVID-19. Additional review of the patient's record shows that patient's current atrial fibrillation appears new. Given increased [id number] anticoagulation is indicated. Heparin drip without bolus ordered. Case was discussed with Dr. Elaine [facility] hospitalist, who will evaluate the patient for admission. Triage Nursing notes reviewed and agree them. Prior medical records reviewed Vital Signs: reviewed Differential diagnosis: Benign positional vertigo, dehydration, hypovolemia, anemia, tumor, infection, hypoglycemia, electrolyte abnormalities, cardiac sources, intracerebral event, toxicologic, neurologic, as well as other pathologies. ER treatment provided: See below. Diagnostics interpreted by me: ECG: Atrial fibrillation, 70 bpm, left bundle branch block, no sgarbossa criteria. QTc 488, QRS 154 Cardiac Monitoring: An order for continuous cardiac monitoring was placed and demonstrated Atrial fibrillation, 70 bpm, frequent PVCs Laboratory studies: See below Imaging studies: See below Consultation(s): Dr. Bobo, [facility]. Dr. Elaine [facility] hospitalist. HPI: The patient is a pleasant 81-year-old gentleman with a past medical history of bioprosthetic aortic valve replacement, history of nonobstructive CAD, h/o LBBB, pulmonary hypertension, hypertension, hyperlipidemia who presents to the emergency department via EMS for evaluation of generalized weakness and feeling sick for the past week with ongoing dizziness which was the initial complaint however upon EMS evaluation was treated for unstable ventricular tachycardia. I did discuss the case with EMS crew on medical command call prior to arrival and reviewed transmitted 12 leads. They reported that the patient was noted to be in a wide-complex tachycardia in the 200s with blood pressure in the 90s/50s where the patient reported symptoms of lightheadedness and appeared confused. The patient was treated with 150 mg of amiodarone but with no change in his rate. He was subsequently given 150 mcg of fentanyl as well as 2.5 mg of Versed and was subsequently received electrical cardioversion with 100 J with conversion to atrial fibrillation in the 60s. However they did note that the patient appeared pale and cyanotic was placed on 100% O2 via nonrebreather. His blood pressure was unable to be obtained and his heart rate had declined into the 30s which appeared to be in a idioventricular rhythm. This had occurred as the EMS crew was arriving to the emergency department and was immediately paced with blood pressure improving to the 160s/80s. Upon our initial evaluation pacing was discontinued and the patient's spontaneous rhythm had resumed in atrial fibrillation in the 60s-80s range. Patient was initially not responding to painful stimulus and it was suspected that this may have been related to his fentanyl and Versed prior to his shock. He did appear to have some RADHA with snoring and so was placed on CPAP which did help with his respiratory function. After approximately 10 minutes the patient suddenly opened his eyes and was answering questions appropriately moving all extremities equally. Of note, the patient confirms that he has been feeling ill for the past week with weakness and frequent dizziness but he reports he has had mild cough and congestion but is not particularly new and has been ongoing for several months. He denies diarrhea. He denies vomiting. He feels like he has been eating and drinking okay. ROS: See above HPI for pertinent positives & negatives. A total of 10 systems reviewed and were otherwise negative. VITALS:See Below PHYSICAL EXAMINATION: GENERAL: Initially unresponsive. Normal respiratory effort though with evidence of RADHA. HENT: Normocephalic, atraumatic. Oropharynx with dry mucous membranes and otherwise unremarkable. . EYES: Normal conjunctiva. Sclera non-icteric. NECK: Supple. No nuchal rigidity. FROM. No JVD. RESPIRATORY: Clear to auscultation. CARDIAC: Regular rate, irregular rhythm. Extremities warm and well perfused. Pulses equal. ABDOMEN: Soft, non-distended. No tenderness to palpation. No rebound or guarding. No masses. RECTAL: Deferred. MUSCULOSKELETAL: Chest examination reveals no tenderness. The back is symmetrical on inspection without obvious abnormality. There is no CVA tenderness to palpation. No joint edema. LOWER EXTREMITIES: Calves are equal size bilaterally and non-tender. No edema. No discoloration. NEURO: Upon awakening feeling mildly somnolent but answering questions ap propriately moving all extremities equally SKIN: No rash or jaundice noted. ED COURSE: Critical Care: I have personally spent greater than 75 minutes of critical care time in the direct management of this patient. This includes bedside care, interpretation of diagnostic studies, and testing, discussion with consultants, patient, and family members, and other required patient management activities. This 75 minutes is in excess of all separately billable procedures. Wolfgang Montiel MD Past Med/Surg History Medical History Cervical radiculopathy Difficulty reading due to visual problem Encounter for pre-operative examination Former smoker History of snuff use Hyperhomocystinemia Hypertension Hyperthyroidism Prediabetes 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, 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, clinical stage TIc Status post biopsies, biopsy stage TIIa Divine grade 3+3 Status post seed implant with cesium 131 as boost 12/08/2006 Status post completion of IMRT/IGRT 02/26/2007" Prostate cancer Pure hypercholesterolemia PVC (premature ventricular contraction) Surgical History H/O aortic valve repair H/O hernia repair History of laparoscopic cholecystectomy (11/08/21) lap ish/ercp Nov 01 Chambers Status post aortic valve replacement with bioprosthetic valve Family History Mother Heart disease Brother Cancer Lung cancer Unknown Prostate cancer Father Prostate cancer Denies family history of Colon cancer Ovarian cancer Myocardial infarction Breast cancer Social History Smoking Status: Former smoker Tobacco Type: Cigarettes and Smokeless Tobacco (Dip or Chew) Age Started Using Tobacco: 8; Age Quit Using Tobacco: 75; packs per day: 2.5; Second Hand Exposure: No; Hx Alcohol Use: No Hx Substance Use: No Preferred Language: Bengali Communication Ability: Effective Visual Impairment: No Limitations Hearing Ability: Use of Hearing Aid Grain Commodity Manager Required: No Beliefs That Will Affect Care: None marital status: / Current Living Situation: Alone current occupational status: retired How many Children do You have: 2 Other Information That Helps Us Care for You: No Feels Safe at Home: Yes Safety Concerns: Feels Safe At This Time Childhood Exposure to Second-Hand Smoke: Yes Diet Comment: regular Dental Care, Regularly: No Physical Activity Frequency: Does not Exercise Seatbelt Use: never Sunscreen Use: No Do you think of yourself as: straight/heterosexual Assistive Devices: Glasses Allergies Allergies Allergy/AdvReac Type Severity Reaction Status Date / Time No Known Allergies Allergy Verified 04/09/22 19:18 Home Meds Home Medications Medication Instructions Recorded Confirmed amoxicillin 500 mg tablet 2,000 mg PO DIRECTED PRN 11/07/21 04/09/22 Prophylaxis aspirin 81 mg tablet,delayed 81 mg PO QAM 11/07/21 04/09/22 release fluocinonide 0.05 % topical cream 1 applic topical BID PRN .rash 11/07/2103/14 folic acid 400 mcg tablet 0.4 mg PO QAM 11/07/21 04/09/22 hydrochlorothiazide 25 mg tablet 25 mg PO QAM 11/07/21 04/09/22 Previous Rx's Medication Instructions Recorded bupropion HCl 150 mg tablet,12 hr 150 mg PO BID #180 ea 10/29/21 sustained-release lisinopril 20 mg tablet 20 mg PO BID #180 tabs 10/29/21 pantoprazole 40 mg tablet,delayed 40 mg PO QAM #90 tabs 11/19/21 release (Protonix) atorvastatin 80 mg tablet 80 mg PO HS #90 tabs 03/28/22 Results & Data (ED) Vital Signs Vital Signs - 24 hr 04/09/22 18:25 04/09/22 18:20 04/09/22 18:31 Pulse Rate Pulse Rate [Apical] Pulse Rate from SpO2 Sensor Pulse Rhythm [Apical] Pulse Strength [Apical] Respiratory Rate Respiratory Effort / Characteristics Respiratory Depth Respiratory Pattern Blood Pressure 114/93 Blood Pressure [Right Arm] Blood Pressure Mean 100 Blood Pressure Mean [Right Arm] Blood Pressure Position [Right Arm] Pulse Oximetry 98 Oxygen Delivery Method Non-rebreather Oxygen Flow Rate Fraction of Inspired Oxygen Sepsis Recent Fever Within 48 Hours No Sepsis New/Unexplained Change in Mental Status No Sepsis Action Taken by Nursing No Action Required End-Tidal CO2 04/09/22 18:31 04/09/22 18:35 04/09/22 18:35 Pulse Rate 76 69 Pulse Rate [Apical] Pulse Rate from SpO2 Sensor 69 70 Pulse Rhythm [Apical] Pulse Strength [Apical] Respiratory Rate 12 12 Respiratory Effort / Characteristics Respiratory Depth Respiratory Pattern Blood Pressure 118/82 Blood Pressure [Right Arm] Blood Pressure Mean 94 Blood Pressure Mean [Right Arm] Blood Pressure Position [Right Arm] Pulse Oximetry 98 99 Oxygen Delivery Method Oxygen Flow Rate Fraction of Inspired Oxygen Sepsis Recent Fever Within 48 Hours Sepsis New/Unexplained Change in Mental Status Sepsis Action Taken by Nursing End-Tidal CO2 28 04/09/22 18:40 04/09/22 18:40 04/09/22 18:49 Pulse Rate 55 L 58 L Pulse Rate [Apical] Pulse Rate from SpO2 Sensor 60 Pulse Rhythm [Apical] Pulse Strength [Apical] Respiratory Rate 12 19 Respiratory Effort / Characteristics Non-Labored Spontaneous Respiratory Depth Normal Respiratory Pattern Regular Blood Pressure 114/72 Blood Pressure [Right Arm] Blood Pressure Mean 86 Blood Pressure Mean [Right Arm] Blood Pressure Position [Right Arm] Pulse Oximetry 100 99 Oxygen Delivery Method Oxygen Flow Rate Fraction of Inspired Oxygen 40 Sepsis Recent Fever Within 48 Hours Sepsis New/Unexplained Change in Mental Status Sepsis Action Taken by Nursing End-Tidal CO2 04/09/22 18:45 04/09/22 18:45 04/09/22 18:50 Pulse Rate 66 69 Pulse Rate [Apical] Pulse Rate from SpO2 Sensor 73 68 Pulse Rhythm [Apical] Pulse Strength [Apical] Respiratory Rate 0 L 0 L Respiratory Effort / Characteristics Respiratory Depth Respiratory Pattern Blood Pressure 112/81 Blood Pressure [Right Arm] Blood Pressure Mean 91 Blood Pressure Mean [Right Arm] Blood Pressure Position [Right Arm] Pulse Oximetry 99 98 Oxygen Delivery Method Oxygen Flow Rate Fraction of Inspired Oxygen Sepsis Recent Fever Within 48 Hours Sepsis New/Unexplained Change in Mental Status Sepsis Action Taken by Nursing End-Tidal CO2 04/09/22 18:51 04/09/22 18:51 04/09/22 18:55 Pulse Rate 63 60 Pulse Rate [Apical] Pulse Rate from SpO2 Sensor 67 67 Pulse Rhythm [Apical] Pulse Strength [Apical] Respiratory Rate 0 L 0 L Respiratory Effort / Characteristics Respiratory Depth Respiratory Pattern Blood Pressure 144/87 H Blood Pressure [Right Arm] Blood Pressure Mean 106 Blood Pressure Mean [Right Arm] Blood Pressure Position [Right Arm] Pulse Oximetry 98 98 Oxygen Delivery Method Oxygen Flow Rate Fraction of Inspired Oxygen Sepsis Recent Fever Within 48 Hours Sepsis New/Unexplained Change in Mental Status Sepsis Action Taken by Nursing End-Tidal CO2 04/09/22 18:55 04/09/22 19:10 04/09/22 19:00 Pulse Rate 56 L Pulse Rate [Apical] Pulse Rate from SpO2 Sensor 61 Pulse Rhythm [Apical] Pulse Strength [Apical] Respiratory Rate 14 Respiratory Effort / Characteristics Respiratory Depth Respiratory Pattern Blood Pressure 137/89 Blood Pressure [Right Arm] Blood Pressure Mean 105 Blood Pressure Mean [Right Arm] Blood Pressure Position [Right Arm] Pulse Oximetry 99 99 Oxygen Delivery Method BiPAP Oxygen Flow Rate Fraction of Inspired Oxygen 40 Sepsis Recent Fever Within 48 Hours Sepsis New/Unexplained Change in Mental Status Sepsis Action Taken by Nursing End-Tidal CO2 04/09/22 19:01 04/09/22 19:01 04/09/22 19:05 Pulse Rate 63 60 Pulse Rate [Apical] Pulse Rate from SpO2 Sensor 73 Pulse Rhythm [Apical] Pulse Strength [Apical] Respiratory Rate 15 12 Respiratory Effort / Characteristics Respiratory Depth Respiratory Pattern Blood Pressure 137/86 Blood Pressure [Right Arm] Blood Pressure Mean 103 Blood Pressure Mean [Right Arm] Blood Pressure Position [Right Arm] Pulse Oximetry 98 99 Oxygen Delivery Method Oxygen Flow Rate Fraction of Inspired Oxygen Sepsis Recent Fever Within 48 Hours Sepsis New/Unexplained Change in Mental Status Sepsis Action Taken by Nursing End-Tidal CO2 04/09/22 19:05 04/09/22 19:10 04/09/22 19:10 Pulse Rate 63 Pulse Rate [Apical] Pulse Rate from SpO2 Sensor 63 Pulse Rhythm [Apical] Pulse Strength [Apical] Respiratory Rate 12 Respiratory Effort / Characteristics Respiratory Depth Respiratory Pattern Blood Pressure 139/84 141/94 H Blood Pressure [Right Arm] Blood Pressure Mean 102 109 Blood Pressure Mean [Right Arm] Blood Pressure Position [Right Arm] Pulse Oximetry 99 Oxygen Delivery Method Oxygen Flow Rate Fraction of Inspired Oxygen Sepsis Recent Fever Within 48 Hours Sepsis New/Unexplained Change in Mental Status Sepsis Action Taken by Nursing End-Tidal CO2 04/09/22 19:15 04/09/22 19:15 04/09/22 20:00 Pulse Rate 65 Pulse Rate [Apical] 52 L Pulse Rate from SpO2 Sensor 74 Pulse Rhythm [Apical] Irregular Pulse Strength [Apical] Normal Respiratory Rate 13 14 Respiratory Effort / Characteristics Non-Labored Spontaneous Respiratory Depth Normal Respiratory Pattern Regular Blood Pressure 156/105 H Blood Pressure [Right Arm] 147/86 H Blood Pressure Mean 122 Blood Pressure Mean [Right Arm] 106 Blood Pressure Position [Right Arm] Semi-fowlers Pulse Oximetry 97 99 Oxygen Delivery Method Nasal Cannula Oxygen Flow Rate 2 Fraction of Inspired Oxygen Sepsis Recent Fever Within 48 Hours Sepsis New/Unexplained Change in Mental Status Sepsis Action Taken by Nursing End-Tidal CO2 04/09/22 20:09 04/09/22 21:00 Pulse Rate Pulse Rate [Apical] 46 L Pulse Rate from SpO2 Sensor Pulse Rhythm [Apical] Irregular Pulse Strength [Apical] Normal Respiratory Rate 14 Respiratory Effort / Characteristics Non-Labored Spontaneous Non-Labored Spontaneous Respiratory Depth Normal Normal Respiratory Pattern Regular Regular Blood Pressure Blood Pressure [Right Arm] 157/84 H Blood Pressure Mean Blood Pressure Mean [Right Arm] 108 Blood Pressure Position [Right Arm] Semi-fowlers Pulse Oximetry 94 99 Oxygen Delivery Method Nasal Cannula Oxygen Flow Rate 2 2 Fraction of Inspired Oxygen Sepsis Recent Fever Within 48 Hours Sepsis New/Unexplained Change in Mental Status Sepsis Action Taken by Nursing End-Tidal CO2 Laboratory Data Attestation: I reviewed the patient's lab results. Result diagrams: 04/09/22 18:30 04/09/22 18:30 Lab Results 04/09/22 04/09/22 04/09/22 Range/Units 18:30 18:30 18:30 WBC 5.79 (4.8-10.8) K/ul RBC 4.51 L (4.63-6.08) M/uL Hgb 13.7 L (14.0-18.0) g/dl POC Hgb (14.0-18.0) g/dl Hct 40.7 (40.1-51.0) % POC Hct (42-52) % MCV 90.2 (80.0-100.0) fL MCH 30.4 (25.0-34.0) pg MCHC 33.7 (32.0-36.0) g/dL RDW Std Deviation 48.1 H (36.4-46.3) fL RDW Coeff of Yony 14.5 (11.5-14.5) % Plt Count 121 L (130-400) K/uL MPV 11.5 (9.4-12.4) fL Immature Gran % (Auto) 0.5 % Neut % (Auto) 24.7 % Lymph % (Auto) 68.7 % Kaufman % (Auto) 3.8 % Eos % (Auto) 1.6 % Baso % (Auto) 0.7 % Neut # (Auto) 1.43 (1.4-6.5) K/uL Lymph # (Auto) 3.98 H (1.2-3.4) K/uL Kaufman # (Auto) 0.22 L (0.24-0.82) K/uL Eos # (Auto) 0.09 (0-0.50) K/uL Baso # (Auto) 0.04 (0-0.2) K/uL Immature Gran # (Auto) 0.03 H (0.00-0.02) K/uL Smudge Cells Present PT (9.0-12.0) Seconds INR (0.9-1.1) APTT (21.0-31.0) Seconds PTT Ratio POC Sodium (135-144) mmol/L Sodium 139 (136-145) mmol/L POC Potassium (3.3-5.0) mmol/L Potassium 3.7 (3.5-5.1) mmol/L POC Chloride (101-112) mmol/L Chloride 107 (98-107) mmol/L Carbon Dioxide 25 (21-32) mmol/L POC Total CO2 (24-31) mmol/L Anion Gap 7 (3-11) POC Anion Gap (16-25) mmol/L POC BUN (7-18) mg/dl BUN 33 H (6-23) mg/dl Creatinine 1.45 H (0.6-1.4) mg/dl POC Creatinine (0.6-1.3) mg/dl Est Cr Clr Drug Dosing Not Reportable Est GFR ( Amer) 51.2 ml/min Est GFR (Non-Af Amer) 44.2 ml/min BUN/Creatinine Ratio 22.8 H (10-20) Glucose 179 H (70-99(Fasting)) mg/dl POC Glucose (other) (70-99) mg/dl Calcium 7.9 L (8.5-10.1) mg/dl POC Ioniz Calcium Alyssa (1.12-1.32) mmol/l Phosphorus 3.2 (2.5-4.9) mg/dl Magnesium 2.1 (1.7-2.4) mg/dl Total Bilirubin 0.8 (0.2-1.0) mg/dl AST 142 H (13-39) U/L ALT 102 H (7-52) U/L Alkaline Phosphatase 146 H (34-104) U/L Troponin I High Sens 44.0 H (0-20) pg/ml Total Protein 6.9 (6.0-8.3) gm/dl Albumin 3.6 (3.4-5.0) gm/dl Globulin 3.3 (2.5-4.0) gm/dl Albumin/Globulin Ratio 1.1 (0.9-2) Lipase 15 (11-82) U/L TSH 1.414 (0.300-4.500) uIu/ml Adenovirus (PCR) (NotDetected) B. pertussis DNA (PCR) (NotDetected) B.parapertussis DNA PCR (NotDetected) C. pneumoniae DNA (PCR) (NotDetected) Coronavirus OC43 (PCR) (NotDetected) Coronavirus HKU1 (PCR) (NotDetected) Coronavirus 229E (PCR) (NotDetected) SARS-CoV-2 (PCR) (NotDetected) Coronavirus NL63 (PCR) (NotDetected) Human Metapneumovir PCR (NotDetected) Influenza Type A (PCR) (NotDetected) Influenza Type B (PCR) (NotDetected) M. pneumoniae (PCR) (NotDetected) Parainfluenza 1 (PCR) (NotDetected) Parainfluenza 2 (PCR) (NotDetected) Parainfluenza 3 (PCR) (NotDetected) Parainfluenza 4 (PCR) (NotDetected) RSV (PCR) (NotDetected) Entero/Rhino (PCR) (NotDetected) 04/09/22 04/09/22 04/09/22 Range/Units 18:30 18:32 19:06 WBC (4.8-10.8) K/ul RBC (4.63-6.08) M/uL Hgb (14.0-18.0) g/dl POC Hgb 13.9 L (14.0-18.0) g/dl Hct (40.1-51.0) % POC Hct 41 L (42-52) % MCV (80.0-100.0) fL MCH (25.0-34.0) pg MCHC (32.0-36.0) g/dL RDW Std Deviation (36.4-46.3) fL RDW Coeff of Yony (11.5-14.5) % Plt Count (130-400) K/uL MPV (9.4-12.4) fL Immature Gran % (Auto) % Neut % (Auto) % Lymph % (Auto) % Kaufman % (Auto) % Eos % (Auto) % Baso % (Auto) % Neut # (Auto) (1.4-6.5) K/uL Lymph # (Auto) (1.2-3.4) K/uL Kaufman # (Auto) (0.24-0.82) K/uL Eos # (Auto) (0-0.50) K/uL Baso # (Auto) (0-0.2) K/uL Immature Gran # (Auto) (0.00-0.02) K/uL Smudge Cells PT 11.6 (9.0-12.0) Seconds INR 1.1 (0.9-1.1) APTT (21.0-31.0) Seconds PTT Ratio POC Sodium 142 (135-144) mmol/L Sodium (136-145) mmol/L POC Potassium 3.6 (3.3-5.0) mmol/L Potassium (3.5-5.1) mmol/L POC Chloride 105 (101-112) mmol/L Chloride (98-107) mmol/L Carbon Dioxide (21-32) mmol/L POC Total CO2 27 (24-31) mmol/L Anion Gap (3-11) POC Anion Gap 14.0 L (16-25) mmol/L POC BUN 32 H (7-18) mg/dl BUN (6-23) mg/dl Creatinine (0.6-1.4) mg/dl POC Creatinine 1.5 H (0.6-1.3) mg/dl Est Cr Clr Drug Dosing Est GFR ( Amer) ml/min Est GFR (Non-Af Amer) ml/min BUN/Creatinine Ratio (10-20) Glucose (70-99(Fasting)) mg/dl POC Glucose (other) 176 H (70-99) mg/dl Calcium (8.5-10.1) mg/dl POC Ioniz Calcium Alyssa 1.13 (1.12-1.32) mmol/l Phosphorus (2.5-4.9) mg/dl Magnesium (1.7-2.4) mg/dl Total Bilirubin (0.2-1.0) mg/dl AST (13-39) U/L ALT (7-52) U/L Alkaline Phosphatase (34-104) U/L Troponin I High Sens (0-20) pg/ml Total Protein (6.0-8.3) gm/dl Albumin (3.4-5.0) gm/dl Globulin (2.5-4.0) gm/dl Albumin/Globulin Ratio (0.9-2) Lipase (11-82) U/L TSH (0.300-4.500) uIu/ml Adenovirus (PCR) Not Detected (NotDetected) B. pertussis DNA (PCR) Not Detected (NotDetected) B.parapertussis DNA PCR Not Detected (NotDetected) C. pneumoniae DNA (PCR) Not Detected (NotDetected) Coronavirus OC43 (PCR) Not Detected (NotDetected) Coronavirus HKU1 (PCR) Not Detected (NotDetected) Coronavirus 229E (PCR) Not Detected (NotDetected) SARS-CoV-2 (PCR) DETECTED A* (NotDetected) Coronavirus NL63 (PCR) Not Detected (NotDetected) Human Metapneumovir PCR Not Detected (NotDetected) Influenza Type A (PCR) Not Detected (NotDetected) Influenza Type B (PCR) Not Detected (NotDetected) M. pneumoniae (PCR) Not Detected (NotDetected) Parainfluenza 1 (PCR) Not Detected (NotDetected) Parainfluenza 2 (PCR) Not Detected (NotDetected) Parainfluenza 3 (PCR) Not Detected (NotDetected) Parainfluenza 4 (PCR) Not Detected (NotDetected) RSV (PCR) Not Detected (NotDetected) Entero/Rhino (PCR) Not Detected (NotDetected) 04/09/22 Range/Units 20:40 WBC (4.8-10.8) K/ul RBC (4.63-6.08) M/uL Hgb (14.0-18.0) g/dl POC Hgb (14.0-18.0) g/dl Hct (40.1-51.0) % POC Hct (42-52) % MCV (80.0-100.0) fL MCH (25.0-34.0) pg MCHC (32.0-36.0) g/dL RDW Std Deviation (36.4-46.3) fL RDW Coeff of Yony (11.5-14.5) % Plt Count (130-400) K/uL MPV (9.4-12.4) fL Immature Gran % (Auto) % Neut % (Auto) % Lymph % (Auto) % Kaufman % (Auto) % Eos % (Auto) % Baso % (Auto) % Neut # (Auto) (1.4-6.5) K/uL Lymph # (Auto) (1.2-3.4) K/uL K[place]man # (Auto) (0.24-0.82) K/uL Eos # (Auto) (0-0.50) K/uL Baso # (Auto) (0-0.2) K/uL Immature Gran # (Auto) (0.00-0.02) K/uL Smudge Cells PT (9.0-12.0) Seconds INR (0.9-1.1) APTT 27.7 (21.0-31.0) Seconds PTT Ratio 1.0 POC Sodium (135-144) mmol/L Sodium (136-145) mmol/L POC Potassium (3.3-5.0) mmol/L Potassium (3.5-5.1) mmol/L POC Chloride (101-112) mmol/L Chloride (98-107) mmol/L Carbon Dioxide (21-32) mmol/L POC Total CO2 (24-31) mmol/L Anion Gap (3-11) POC Anion Gap (16-25) mmol/L POC BUN (7-18) mg/dl BUN (6-23) mg/dl Creatinine (0.6-1.4) mg/dl POC Creatinine (0.6-1.3) mg/dl Est Cr Clr Drug Dosing Est GFR ( Amer) ml/min Est GFR (Non-Af Amer) ml/min BUN/Creatinine Ratio (10-20) Glucose (70-99(Fasting)) mg/dl POC Glucose (other) (70-99) mg/dl Calcium (8.5-10.1) mg/dl POC Ioniz Calcium Alyssa (1.12-1.32) mmol/l Phosphorus (2.5-4.9) mg/dl Magnesium (1.7-2.4) mg/dl Total Bilirubin (0.2-1.0) mg/dl AST (13-39) U/L ALT (7-52) U/L Alkaline Phosphatase (34-104) U/L Troponin I High Sens (0-20) pg/ml Total Protein (6.0-8.3) gm/dl Albumin (3.4-5.0) gm/dl Globulin (2.5-4.0) gm/dl Albumin/Globulin Ratio (0.9-2) Lipase (11-82) U/L TSH (0.300-4.500) uIu/ml Adenovirus (PCR) (NotDetected) B. pertussis DNA (PCR) (NotDetected) B.parapertussis DNA PCR (NotDetected) C. pneumoniae DNA (PCR) (NotDetected) Coronavirus OC43 (PCR) (NotDetected) Coronavirus HKU1 (PCR) (NotDetected) Coronavirus 229E (PCR) (NotDetected) SARS-CoV-2 (PCR) (NotDetected) Coronavirus NL63 (PCR) (NotDetected) Human Metapneumovir PCR (NotDetected) Influenza Type A (PCR) (NotDetected) Influenza Type B (PCR) (NotDetected) M. pneumoniae (PCR) (NotDetected) Parainfluenza 1 (PCR) (NotDetected) Parainfluenza 2 (PCR) (NotDetected) Parainfluenza 3 (PCR) (NotDetected) Parainfluenza 4 (PCR) (NotDetected) RSV (PCR) (NotDetected) Entero/Rhino (PCR) (NotDetected) Administered Medications Heparin Sodium/Dextrose (Heparin Sodium/Dextrose) 25,000 units in 500 mls @ 32 mls/hr IV .[id number] [facility]; Protocol Stop: 05/09/22 20:59 Last Admin: 04/09/22 21:46 Dose: 1,600 units/hr, 32 mls/hr Documented By: KEITH Co-signed By: BRENNAN Parenteral Electrolytes (Normosol-R) 1,000 mls @ 80 mls/hr IV .[id number] [facility] Stop: 04/10/22 12:12 Last Admin: 04/10/22 01:09 Dose: 80 mls/hr Documented By: BETTY Dexamethasone 6 mg/ Syringe 1.5 mls @ 1 mls/min IV DAILY [facility] Stop: 04/19/22 23:42 Last Admin: 04/10/22 01:10 Dose: 1 mls/min Documented By: BETTY Amiodarone HCl/Dextrose (Nexterone / D5w) 360 mg in 200 mls @ 16.667 mls/hr IV .Q12H [facility] Stop: 05/10/22 00:29 Last Admin: 04/10/22 00:35 Dose: 0.5 mg/min, 16.7 mls/hr Documented By: BETTY Co-signed By: ARR Discontinued Medications Amiodarone HCl/Dextrose (Nexterone / D5w) 360 mg in 200 mls @ 33.333 mls/hr IV ONE ONE; Protocol Stop: 04/10/22 00:37 Last Infusion: 04/10/22 01:36 Dose: 0 mg/min, 0 mls/hr Documented By: BETTY Co-signed By: TMG Infusion: 04/09/22 23:47 Dose: 1 mg/min, 33.3 mls/hr Documented By: EL Co-signed By: JLP Infusion: 04/09/22 23:44 Dose: 0 mg/min, 0 mls/hr Documented By: EL Co-signed By: TG Admin: 04/09/22 18:48 Dose: 1 mg/min, 33.3 mls/hr Documented By: SIERRA Co-signed By: KEITH Sodium Chloride (Nss) 500 mls @ 999 mls/hr IV .Q31M ONE Stop: 04/09/22 19:08 Last Infusion: 04/09/22 19:30 Dose: 0 mls/hr Documented By: Admin: 04/09/22 18:48 Dose: 999 mls/hr Documented By: SIERRA Miscellaneous (Rapid Sequence Induction Bag) Confirm Administered Dose 1 each .ROUTE .STK-MED ONE Stop: 04/09/22 18:25 Last Admin: 04/10/22 01:13 Dose: Not Given Documented By: BETTY Ondansetron HCl (Ondansetron Inj 2 Mg/Ml 2 Ml Vial) 4 mg IV NOW STA Stop: 04/09/22 19:50 Last Admin: 04/09/22 19:53 Dose: 4 mg Documented By: KEITH Ondansetron HCl (Ondansetron Inj 2 Mg/Ml 2 Ml Vial) Confirm Administered Dose 4 mg .ROUTE .STK-MED ONE Stop: 04/09/22 19:50 Last Admin: 04/09/22 20:00 Dose: Not Given Documented By: KEITH Imaging Data Radiologist's Impression: Chest X-Ray 04/09/22 18:20 XR chest 1V portable HISTORY: 81 years-old Male Chest pain, nonspecific COMPARISON: 11/09/2021 TECHNIQUE: AP view of the chest FINDINGS: Cardiac silhouette is enlarged. Prior median sternotomy with cardiac valvular prosthesis. No pneumothorax or overt pulmonary edema. Blunting of the costophrenic angles with mild left lung base densities. Degenerative changes of the shoulders and spine. IMPRESSION: 1. Cardiomegaly without pulmonary edema. 2. Trace pleural effusions with mild left lung base opacities, likely atelectatic. ACT 112: Negative or not required by law. The above report was generated using voice recognition software. It may contain grammatical, syntax or spelling errors. Electronically signed by: Quinton Wilde M.D. 04/09/2022 7:00 PM Discharge Plan Visit Data Chief Complaint: Cardiac Assessment Stated Complaint: Chest Pain ED Provider: Wolfgang Montiel Discharge Problem: Ventricular tachycardia, Left bundle branch block, New onset atrial fibrillation, COVID-19, Elevated troponin Patient Disposition: Admitted As Inpatient Discharge Instructions Interventions: ED Discharge Assessment Last Done: 04/09/22 22:54
[2022-04-09 19:10] LABS: INR 1.1 (0.9-1.1); Prothrombin Time 11.6 Seconds (9.0-12.0)
[2022-04-09 19:18] LABS: Alanine Aminotransferase 102 U/L (7-52); Albumin Globulin Ratio 1.1 (0.9-2); Albumin Level 3.6 gm/dl (3.4-5.0); Alkaline Phosphatase 146 U/L (34-104); Anion Gap 7 (3-11); Aspartate Aminotransferase 142 U/L (13-39); BUN Creatinine Ratio 22.8 (10-20); Bilirubin,Total 0.8 mg/dl (0.2-1.0); Blood Urea Nitrogen 33 mg/dl (6-23); Calcium 7.9 mg/dl (8.5-10.1); Carbon Dioxide 25 mmol/L (21-32); Chloride 107 mmol/L (98-107); Est GFR (African American) 51.2 ml/min; Est GFR (Non-African American) 44.2 ml/min; Globulin 3.3 gm/dl (2.5-4.0); Glucose 179 mg/dl (70-99(Fasting)); Lipase 15 U/L (11-82); Magnesium 2.1 mg/dl (1.7-2.4); Phosphorus 3.2 mg/dl (2.5-4.9); Potassium 3.7 mmol/L (3.5-5.1); Sodium 139 mmol/L (136-145); Total Protein 6.9 gm/dl (6.0-8.3)
[2022-04-09] MEDS ORDERED: ONDANSETRON INJ 2 MG/ML 2 ML VIAL IV STA (19:49)
[2022-04-09] MEDS ORDERED: ONDANSETRON INJ 2 MG/ML 2 ML VIAL ONE (19:49)
[2022-04-09 19:56] LABS: Hematocrit (blood only) 40.7 % (40.1-51.0); Hemoglobin 13.7 g/dl (14.0-18.0); Mean Corpuscular Hemoglobin 30.4 pg (25.0-34.0); Mean Corpuscular Hgb Conc 33.7 g/dL (32.0-36.0); Mean Corpuscular Volume 90.2 fL (80.0-100.0); Mean Platelet Volume 11.5 fL (9.4-12.4); Platelet Count 121 K/uL (130-400); RDW Coefficient of Variation 14.5 % (11.5-14.5); RDW Standard Deviation 48.1 fL (36.4-46.3); Red Blood Count 4.51 M/uL (4.63-6.08); White Blood Count 5.79 K/ul (4.8-10.8)
[2022-04-09 20:09] LABS: Adenovirus PCR Not Detected (NotDetected); Bordetella parapertussis PCR Not Detected (NotDetected); Bordetella pertussis PCR Not Detected (NotDetected); Chlamydia pneumoniae PCR Not Detected (NotDetected); Coronavirus 229E PCR Not Detected (NotDetected); Coronavirus HKU1 PCR Not Detected (NotDetected); Coronavirus NL63 PCR Not Detected (NotDetected); Coronavirus OC43PCR Not Detected (NotDetected); Human Metapneumovirus PCR Not Detected (NotDetected); Influenza A PCR Not Detected (NotDetected); Influenza B PCR Not Detected (NotDetected); Mycoplasma pneumoniae PCR Not Detected (NotDetected); Parainfluenza Virus 1 PCR Not Detected (NotDetected); Parainfluenza Virus 2 PCR Not Detected (NotDetected); Parainfluenza Virus 3 PCR Not Detected (NotDetected); Parainfluenza Virus 4 PCR Not Detected (NotDetected); Respiratory Syncytial VirusPCR Not Detected (NotDetected); Rhinovirus/Enterovirus PCR Not Detected (NotDetected)
[2022-04-09 20:20] LABS: Coronavirus CoV-2 (COVID19)PCR DETECTED (NotDetected)
[2022-04-09 20:32] LABS: Basophils # (auto) 0.04 K/uL (0-0.2); Basophils % (auto) 0.7 %; Eosinophils # (auto) 0.09 K/uL (0-0.50); Eosinophils % (auto) 1.6 %; Immature Granulocytes # (auto) 0.03 K/uL (0.00-0.02); Immature Granulocytes % (auto) 0.5 %; Lymphocytes # (auto) 3.98 K/uL (1.2-3.4); Lymphocytes % (auto) 68.7 %; Monocytes # (auto) 0.22 K/uL (0.24-0.82); Monocytes % (auto) 3.8 %; Neutrophils # (auto) 1.43 K/uL (1.4-6.5); Neutrophils % (auto) 24.7 %; Smudge Cells Present
[2022-04-09] MEDS ORDERED: Heparin IV Adult Wt-Based Standard *NO* Bolus Protocol IV ONE (20:35)
[2022-04-09 21:04] LABS: Partial Thromboplastin Time 27.7 Seconds (21.0-31.0)
--- NOTE | 2022-04-09 21:28 | History & Physical Report ---
Date of Service April 09, 2022 Assessment & Plan (1) Ventricular tachyarrhythmia: Plan: Found by EMS reportedly in unstable VT with HR in 200s - s/p Amiodarone 150mg bolus and synchronized cardioversion by EMS. Also s/p external pacing for symptomatic bradycardia after cardioversion. Now patient is hemodynamically stable but in a-fib (as described below). Suspect tachyarhythmia in context of likely undiagnosed chronic a-fib that likely turned to RVR due to COVID-19 infection. - admit to PCU - started on Amiodarone bolus + gtt in ED - continue - Cardiology consulted - appreciate recs - maintain placement of external pacer pads, can utilize pacing again if develops symptomatic bradycardia (2) New onset atrial fibrillation: Plan: No previous diagnosis of a-fib. Found in VT as stated above but currently remains in rate-controlled a-fib with frequent PVCs while on Amiodarone gtt. CHADS-VASc 4 (age, HTN, vascular dx). - started on Heparin gtt in ED - continue for now, may require Warfarin chronically given h/o aortic valve replacement - defer to primary team/Cardiology - note: patient at risk for thromboembolism given likely chronic a-fib s/p Amiodarone/cardioversion without previously being on anti-coagulation - check TTE - repeat EKG in AM - Cardiology consulted as stated above (3) COVID-19: Plan: Fever/cough/congestion/weakness x1 week. May have been impetus for above- mentioned problems. Currently requires 2L/min via nasal cannula to maintain sats >90%. No pneumonia and afebrile on presentation. - start Dexamethasone 6mg IV daily - defer Remdesivir due to transaminitis and CATRACHITO - Duonebs PRN, Mucinex BID, incentive spirometry/flutter valve - wean O2 as tolerated to maintain SpO2 >90% - patient may benefit from PRN Albuterol +/- outpatient PFTs given significant past smoking history (4) Elevated troponin: Plan: hsTroponin 44. EKG without ST/T abnormalities. No chest pain. Suspect demand ischemia due to v-tach/unstable arrhythmia. - trend now and in AM - PRN EKG for chest pain (5) CATRACHITO (acute kidney injury): Plan: Cr 1.45, no baseline CKD. Suspect pre-renal injury due to dehydration in context of COVID-19, as well as v-tach/unstable arrhythmia. - s/p NSS 500cc bolus - continue with light IVFs with Normosol-R @80cc/hr x1L - avoid nephrotoxins, hold home HCTZ/Lisinopril - trend kidney function in AM (6) Transaminitis: Plan: ALT 102/AST 142, previously normal baseline. Suspect mild shock liver due to v- tach/unstable arrhythmia. Of note patient had choledocholithiasis in 10/2021 and had ERCP with stent as well as lap ish at that time. - check US liver - trend in AM (7) Thrombocytopenia: Plan: Plts 121, previously normal. PT/PTT/INR WNL. Unclear etiology. - trend in AM (8) Aortic stenosis: Plan: S/p bioprosthetic aortic valve replacement at [facility] in 2009. Reportedly never has been on anti-coagulation. - Heparin gtt as stated above, with ? need for transition to long-term Warfarin (9) Hypertension: Plan: Currently BP 150s/80s while on Amio gtt. - hold home HCTZ/Lisinopril for now, as stated above (10) Coronary artery disease: Plan: Non-obstructive, no previous PCI/CABG. Continue home baby ASA. (11) Pure hypercholesterolemia: Plan: LDL 81 when checked in 02/2022. Continue home Atorvastatin 80mg. (12) Prediabetes: Plan: A1c 6.0 in 02/2022. No meds. (13) Acid reflux disease: Plan: Continue home Protonix (14) Depression: Plan: Continue home Wellbutrin (15) Right ischial pressure sore, stage 1: Plan: Recently diagnosed. Daily wound care while hospitalized. Plan FEN/GI: NPO, Normosol-R @80cc/hr DVT Prophylaxis: Heparin gtt Code Status: full code Disposition: PCU History of Present Illness Chief Complaint: v-tach Primary Care Provider: Juan Manuel Early III, LIZ Kermit Rogers is an 81yo male with PMHx significant for non-obstructive CAD (last TTE in 10/2021 with EF 50-55%, RVSP 50-55), aortic stenosis (s/p bio prosthetic AVR at [facility] in 2010), h/o LBBB, pulmonary hypertension, right ischial pressure sore (stage I), HTN, HLD, hyperthyroidism and prediabetes, who presented to [facility] ED on 04/09 via EMS for wide-complex tachycardia and hemodynamic instability. Patient reports that he was having subjective fever/chills, worsening generalized weakness/lightheadedness, some cough/congestion, decreased PO intake and "feeling sick" for ~1 week. However EMS was called earlier today for significant weakness/confusion and patient was found to be in wide complex tachycardia with BP 90s/50s. Patient was given Amiodarone 150mg IV without change, and then was given Fentanyl 150mcg/Versed 2.5mg as well as synchronized cardioversion 100J, with conversion to a-fib in 60s (NEW A-FIB). En route to [facility], patient was subsequently pale and appeared cyanotic and was placed on 100% O2 via nonrebreather. BP was unable to be obtained and HR was in 30s. Patient was then external paced in ED upon arrival and BP improved to 160s/80s, HR back to a-fib in 60s-80s. External pacing discontinued and VS remained stable. Patient was initially unresponsive to painful stimuli and snoring for ~10 minutes - CPAP applied; then patient spontaneously opened his eyes and was answering questions appropriately and moving all extremities equally. EKG x2 (both s/p d/c of external pacer) showed a-fib with LBBB (chronic), without meeting S[place]ossa criteria. Telemetry monitoring in ED showed persistent a-fib with frequent PVCs but no v-tach or other arrhythmia. On further questioning the patient reports that he has never taken a blood thinner before, denies previous diagnosis of arrhythmia and/or a-fib. He has an 80 pack year smoking history and quit 20 years ago; denies h/o COPD and/or inhaler use but does report getting SOB/wheezing only when he is sick. Denies alcohol use/drug use. He reports that he was prescribed Lasix 20mg PO daily by his resort desk clerk (Dr. Kendall [facility]) for LE edema but has only been lazaro ing it several times per week due to desire for decreased urinary frequency. Denies previous h/o CHF. In the ED the patient was hypoxic to 80s and required 2L/min nasal cannula to maintain >90%. Afebrile. Labs significant for plts 121 (lower than baseline), BUN 33/Cr 1.45 (baseline Cr 1.2 - 1.3), ALT 102/AST 142 (acute), ALP 146, hsTroponin 44, TSH 1.4. COVID-19+. CXR with cardiomegaly (chronic), without pulmonary edema. With trace pleural effusions and mild LLL opacity (likely atelectasis). In ED patient started on Heparin w/o bolus, Amiodarone gtt. Given NSS 500cc bolus and Zofran 4mg IV x1 as well. Allergies Allergy/AdvReac Type Severity Reaction Status Date / Time No Known Allergies Allergy Verified 04/09/22 19:18 Home Medications Medication Instructions Recorded Confirmed Type bupropion HCl 150 mg tablet,12 hr 150 mg PO BID #180 ea 10/29/21 04/09/22 Rx sustained-release lisinopril 20 mg tablet 20 mg PO BID #180 tabs 10/29/21 04/09/22 Rx amoxicillin 500 mg tablet 2,000 mg PO DIRECTED PRN 11/07/21 04/09/22 History Prophylaxis aspirin 81 mg tablet,delayed 81 mg PO QAM 11/07/21 04/09/22 History release fluocinonide 0.05 % topical cream 1 applic topical BID PRN .rash 11/07/21 04/09/22 History folic acid 400 mcg tablet 0.4 mg PO QAM 11/07/21 04/09/22 History hydrochlorothiazide 25 mg tablet 25 mg PO QAM 11/07/21 04/09/22 History pantoprazole 40 mg tablet,delayed 40 mg PO QAM #90 tabs 11/19/21 04/09/22 Rx release (Protonix) atorvastatin 80 mg tablet 80 mg PO HS #90 tabs 03/28/22 04/09/22 Rx Past Med/Surg History Medical History Cervical radiculopathy Difficulty reading due to visual problem Encounter for pre-operative examination Former smoker History of snuff use Hyperhomocystinemia Hypertension Hyperthyroidism Prediabetes 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, 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, clinical stage TIc Status post biopsies, biopsy stage TIIa [place] grade 3+3 Status post seed implant with cesium 131 as boost 12/08/2006 Status post completion of IMRT/IGRT 02/26/2007" Prostate cancer Pure hypercholesterolemia PVC (premature ventricular contraction) Surgical History H/O aortic valve repair H/O hernia repair History of laparoscopic cholecystectomy (11/08/21) lap ish/ercp Nov 01 [place] Status post aortic valve replacement with bioprosthetic valve Family History Mother Heart disease Brother Cancer Lung cancer Unknown Prostate cancer Father Prostate cancer Denies family history of Colon cancer Ovarian cancer Myocardial infarction Breast cancer Social History Smoking Status: Former smoker Tobacco Type: Cigarettes and Smokeless Tobacco (Dip or Chew) Age Started Using Tobacco: 8; Age Quit Using Tobacco: 75; packs per day: 2.5; Second Hand Exposure: No; Hx Alcohol Use: No Hx Substance Use: No Preferred Language: Pashto Communication Ability: Effective Visual Impairment: No Limitations Hearing Ability: Use of Hearing Aid Information Technology Auditor Required: No Beliefs That Will Affect Care: None marital status: / Current Living Situation: Alone current occupational status: retired How many Children do You have: 2 Other Information That Helps Us Care for You: No Feels Safe at Home: Yes Safety Concerns: Feels Safe At This Time Childhood Exposure to Second-Hand Smoke: Yes Diet Comment: regular Dental Care, Regularly: No Physical Activity Frequency: Does not Exercise Seatbelt Use: never Sunscreen Use: No Do you think of yourself as: straight/heterosexual Assistive Devices: Cane Review of Systems Review of Systems: All systems reviewed & are unremarkable except as noted in HPI & below Physical Exam Physical Exam: General: A&Ox3. NAD. Cooperative. HEENT: Atraumatic, normocephalic. NC in place. Pulm: CTAB A&P. -wheezes, -rales, -rhonchi. Symmetrical chest rise. No increase work of breathing. No respiratory distress. Cardiac: RRR, -mrg. Radial pulses intact and symmetrical. Mild non-pitting pedal edema. Abdominal: soft, non-tender, non-distended, BS x 4 Skin: warm, dry, no rash Results & Data Results & Data ([facility]) Vital Signs (Past 12 Hours) Vital Signs Pulse Pulse Resp BP BP Pulse Ox O2 Del Method 04/09/22 20:09 94 04/09/22 20:00 52 L 14 147/86 H 99 Nasal Cannula 04/09/22 19:15 65 13 97 04/09/22 19:15 156/105 H 04/09/22 19:10 63 12 99 04/09/22 19:10 141/94 H 04/09/22 19:05 139/84 04/09/22 19:05 60 12 99 04/09/22 19:01 137/86 04/09/22 19:01 63 15 98 04/09/22 19:00 56 L 14 99 04/09/22 19:10 99 BiPAP 04/09/22 18:55 137/89 04/09/22 18:55 60 0 L 98 04/09/22 18:51 63 0 L 98 04/09/22 18:51 144/87 H 04/09/22 18:50 69 0 L 98 04/09/22 18:45 112/81 04/09/22 18:45 66 0 L 99 04/09/22 18:49 58 L 19 99 04/09/22 18:40 55 L 12 100 04/09/22 18:40 114/72 04/09/22 18:35 118/82 04/09/22 18:35 69 12 99 04/09/22 18:31 76 12 98 04/09/22 18:31 114/93 04/09/22 18:20 98 Non-rebreather O2 Flow Rate FiO2 04/09/22 20:09 2 04/09/22 20:00 2 04/09/22 19:15 04/09/22 19:15 04/09/22 19:10 04/09/22 19:10 04/09/22 19:05 04/09/22 19:05 04/09/22 19:01 04/09/22 19:01 04/09/22 19:00 04/09/22 19:10 40 04/09/22 18:55 04/09/22 18:55 04/09/22 18:51 04/09/22 18:51 04/09/22 18:50 04/09/22 18:45 04/09/22 18:45 04/09/22 18:49 40 04/09/22 18:40 04/09/22 18:40 04/09/22 18:35 04/09/22 18:35 04/09/22 18:31 04/09/22 18:31 04/09/22 18:20 Supervising Physician Co-Signing Physician Notes Pt seen and examined in concert with . Agree with the documented findings as noted in the resident documentation in both the history and the Physical eaxma and discussed with him the overall plan in detail. Resident Activity Tracking Resident Involvement: Resident Care Provided Care Provided: Adult [facility] (1) Coronary artery disease Associated angina: without angina Coronary Disease-Associated Artery/Lesion type: [place] artery [place] vs. transplanted heart: [place] heart Qualified Code(s): I25.10 - Atherosclerotic heart disease of [place] coronary artery without angina pectoris (2) Aortic stenosis Cardiac valve disease etiology: nonrheumatic Qualified Code(s): I35.0 - Nonrheumatic aortic (valve) stenosis (3) Depression Active/Remission status: currently active Depression Type: major depressive disorder Major depression episode severity: mild Major depression recurrence: single episode Qualified Code(s): F32.0 - Major depressive disorder, single episode, mild (4) Acid reflux disease Esophagitis presence: without esophagitis Qualified Code(s): K21.9 - Gastro- esophageal reflux disease without esophagitis (5) Hypertension Hypertension type: essential hypertension Qualified Code(s): I10 - Essential (primary) hypertension
[2022-04-09] MEDS: HEPARIN SODIUM/DEXTROSE 25,000 UNITS/500 ML BAG IV SCH (21:46)
[2022-04-09] MEDS ORDERED: NORMOSOL-R 1,000 ML IV SCH (23:43)
[2022-04-09] MEDS ORDERED: ALBUT/IPRATROP 3MG/0.5MG NEB 3 ML VIAL NEB PRN (23:43)
[2022-04-10] MEDS ORDERED: 0.2 MICRON FILTER SET 1 EACH IV ONE (00:30)
[2022-04-10] MEDS: AMIODARONE / D5W 360 MG/200 ML BAG IV SCH ×3 (00:35→23:10)
[2022-04-10] MEDS: dexAMETHasone 6 MG in SYRINGE 0 ML IV SCH ×2 (01:10→09:09)
[2022-04-10 04:54] LABS: Hematocrit (blood only) 38.8 % (40.1-51.0); Hemoglobin 12.8 g/dl (14.0-18.0); Mean Corpuscular Volume 91.1 fL (80.0-100.0); Mean Platelet Volume 11.7 fL (9.4-12.4); Platelet Count 121 K/uL (130-400); RDW Coefficient of Variation 14.6 % (11.5-14.5); RDW Standard Deviation 48.6 fL (36.4-46.3); Red Blood Count 4.26 M/uL (4.63-6.08); White Blood Count 4.29 K/ul (4.8-10.8)
[2022-04-10 05:07] LABS: Echinocytes 1+; Immature Granulocytes # (auto) 0.02 K/uL (0.00-0.02); Immature Granulocytes % (auto) 0.5 %; Lymphocytes # (auto) 0.67 K/uL (1.2-3.4); Lymphocytes % (auto) 15.6 %; Monocytes # (auto) 0.09 K/uL (0.24-0.82); Monocytes % (auto) 2.1 %; Neutrophils # (auto) 3.51 K/uL (1.4-6.5); Neutrophils % (auto) 81.8 %; Ovalocytes 1+
[2022-04-10 06:49] LABS: Albumin Globulin Ratio 1.1 (0.9-2); Albumin Level 3.7 gm/dl (3.4-5.0); BUN Creatinine Ratio 28.1 (10-20); Bilirubin,Total 0.5 mg/dl (0.2-1.0); Calcium 8.1 mg/dl (8.5-10.1); Creatinine Clr Calc Pharmacy 54.1 ml/min; Est GFR (African American) 59.6 ml/min; Est GFR (Non-African American) 51.4 ml/min; Globulin 3.3 gm/dl (2.5-4.0); Potassium 4.4 mmol/L (3.5-5.1)
--- NOTE | 2022-04-10 07:52 | Ultrasound Report ---
ABDOMINAL ULTRASOUND, RIGHT UPPER QUADRANT HISTORY: transaminitis. COMPARISON: Abdominal ultrasound 11/08/2021. FINDINGS: Pancreas: Obscured by overlying bowel gas. Liver: Unremarkable. Gallbladder: The gallbladder is surgically absent. CBD: 3 mm. Right kidney: No hydronephrosis. Miscellaneous: A small right pleural effusion is noted. IMPRESSION: 1. Prior cholecystectomy. 2. Normal caliber common bile duct. 3. Small right pleural effusion. ACT 112: Negative or not required by law. Electronically signed by: Mendoza Uriostegui M.D. 04/10/2022 7:51 AM
[2022-04-10 07:56] LABS: Partial Thromboplastin Ratio > 5.1
[2022-04-10 08:02] LABS: Partial Thromboplastin Time > 139.0 Seconds (21.0-31.0)
--- NOTE | 2022-04-10 08:14 | Hospitalist Progress Note ---
Date of Service April 10, 2022 Assessment & Plan (1) Ventricular tachyarrhythmia: Plan: Kermit Rogers is an 81 y/o male with PMHx significant for non-obstructive CAD (last TTE in 10/2021 with EF 50-55%, RVSP 50-55), aortic stenosis [place]oprost[place] [facility] [place] h/o LBBB, pulmonary hypertension, right ischial pressure sore (stage I), HTN, HLD, hyperthyroidism and prediabetes, who presented to [facility] ED on 04/09 via EMS for wide-complex tachycardia and hemodynamic instability. Patient reports that he was having subjective fever/chills, worsening generalized weakness/lightheadedness, some cough/congestion, decreased PO intake and "feeling sick" for ~1 week. EMS was called for significant weakness/confusion and patient was found to be in wide complex tachycardia with BP 90s/50s. Patient was given Amiodarone 150mg IV without change, and then was given Fentanyl 150mcg/Versed 2.5mg as well as synchronized cardioversion 100J, with conversion to a-fib in 60s (NEW A-FIB). En route to [facility], patient was subsequently pale and appeared cyanotic and was placed on 100% O2 via nonrebreather. BP was unable to be obtained and HR was in 30s. Patient was then external paced in ED upon arrival and BP improved to 160s/80s, HR back to a-fib in 60s-80s. External pacing discontinued and VS remained stable. Patient was initially unresponsive to painful stimuli and snoring for ~10 minutes - CPAP applied; then patient spontaneously opened his eyes and was a nswering questions appropriately and moving all extremities equally. EKG x2 (both s/p d/c of external pacer) showed a-fib with LBBB (chronic), without meeting Sgarbossa criteria. Telemetry monitoring in ED showed persistent a-fib with frequent PVCs but no v-tach or other arrhythmia. On further questioning the patient reports that he has never taken a blood thinner before, denies previous diagnosis of arrhythmia and/or a-fib. He has an 80 pack year smoking history and quit 20 years ago; denies h/o COPD and/or inhaler use but does report getting SOB/wheezing only when he is sick. Denies alcohol use/drug use. 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 [facility]) for LE edema but has only been taking it several times per week due to desire for decreased urinary frequency. Denies previous h/o CHF. In the ED the patient was hypoxic to 80s and required 2L/min nasal cannula to maintain >90%. Afebrile. Labs significant for plts 121 (lower than baseline), BUN 33/Cr 1.45 (baseline Cr 1.2 - 1.3), ALT 102/AST 142 (acute), Alk Phos 146, hsTroponin 44, TSH 1.4. COVID-19+. CXR with cardiomegaly (chronic), without pulmonary edema. With trace pleural effusions and mild LLL opacity (likely atelectasis). In ED patient started on Heparin w/o bolus, Amiodarone gtt. Given NSS 500cc bolus and Zofran 4mg IV x1 as well. #Ventricular tachycardia When EMS found the pt he was reportedly in unstable VT with HR in 200s - s/p Amiodarone 150mg bolus and synchronized cardioversion by EMS. Also s/p external pacing for symptomatic bradycardia after cardioversion. Now patient is hemodynamically stable but in a-fib (as described below). Suspect tachyarrhythmia in context of likely undiagnosed chronic a-fib that likely turned to RVR due to COVID-19 infection. [] on amio gtt [] cards consult - appreciate recs (rec cath and ICD placement) [] maintain placement of external pacer pads, can utilize pacing again if develops symptomatic bradycardia #New onset a. fib No previous diagnosis of a-fib. Found in VT as stated above but currently remains in rate-controlled a-fib with frequent PVCs while on Amiodarone gtt. CHADS-VASc 4 (age, HTN, vascular dx). [] heparin gtt, may require Warfarin chronically given h/o aortic valve replacement - defer to primary team/Cardiology [] at risk for thromboembolism given likely chronic a-fib s/p amiodarone/card ioversion without previously being on anti-coagulation [] TTE [] repeat EKG in AM #Covid 19 Fever/cough/congestion/weakness x1 week. May have been impetus for above- mentioned problems. Currently requires 2L/min via nasal cannula to maintain sats >90%. No pneumonia and afebrile on presentation. [] start Dexamethasone 6mg IV daily [] defer Remdesivir due to transaminitis and CATRACHITO [] Duonebs PRN, Mucinex BID, incentive spirometry/flutter valve [] wean O2 as tolerated to maintain SpO2 >90% [] patient may benefit from PRN Albuterol +/- outpatient PFTs given significant past smoking history #Elevated troponin hsTroponin 44 --> 559.1 --> 788.0. EKG without ST/T abnormalities. No chest pain. Suspect demand ischemia due to v-tach/unstable arrhythmia. [] trend trops, peaked at 716.5 [] PRN EKG for chest pain #CATRACHITO Cr 1.45, no baseline CKD. Suspect pre-renal injury due to dehydration in context of COVID-19, as well as v-tach/unstable arrhythmia. Given 500 mL NS bolus. Continue with light hydration [] IVF Normosol-R 80 mL/hr x1 bag [] avoid nephrotoxins, hold home HCTZ/Lisinopril [] AM CMP #Transaminitis ALT 102/AST 142, previously normal at baseline. Suspect mild shock liver due to v-tach/unstable arrhythmia. Of note patient had choledocholithiasis in 10/2021 and had ERCP with stent as well as lap ish at that time. [] liver US - notable for small left pleural effusion only [] AM CMP #Thrombocytopenia Plts 121, previously normal. PT/PTT/INR WNL. Unclear etiology. Upon reeval all cell lines are decreased. Will continue to monitor. Possibly in the setting of covid19 infection. [] CBC #Aortic Stenosis S/[place] bioprosthetic [place] [facility] [place]. Reportedly never has been on anti-coagulation. - Heparin gtt as stated above, with ? need for transition to long-term Warfarin #HTN On Amio gtt. Holding home med in setting of CATRACHITO. Add on amlodipine 5 mg as BPs >160/100 [] hold home HCTZ/Lisinopril for now in setting of CATRACHITO [] amlodipine 5 mg #CAD Non-obstructive, no previous PCI/CABG. Continue home baby ASA. #HLD LDL 81 when checked in 02/2022. Continue home Atorvastatin 80mg. #Prediabetes A1c 6.0 in 02/2022. No meds. #GERD Continue home Protonix #Depression Continue home Wellbutrin #Pressure ulcer (gradeI) - present on admission Wound care while inpatient. FEN/GI: NPO, Normosol-R @80cc/hr DVT Prophylaxis: Heparin gtt Code Status: full code Disposition: PCU (2) New onset atrial fibrillation: (3) COVID-19: (4) Elevated troponin: (5) CATRACHITO (acute kidney injury): (6) Transaminitis: (7) Thrombocytopenia: (8) Aortic stenosis: (9) Hypertension: (10) Coronary artery disease: (11) Pure hypercholesterolemia: (12) Prediabetes: (13) Acid reflux disease: (14) Depression: (15) Right ischial pressure sore, stage 1: Admission and Anticipated Discharge Date Admission Date: April 09, 2022 Supervising Physician Co-Signing Physician Notes Patient seen and examined independently of PGY-1 Dr. Mcnally. Agree with history exam findings, assessment and plan of care as outlined. In brief, Mr. Rogers is an 81 year old male with history of aortic stenosis s/p bioprosthetic valve replacement, non-obstructive CAD, HTN, preDM, depression admitted with ventricular tachyarrhythmia and COVID. This morning, he feels well. No chest pain, dyspnea. Some congestion, but not bothersome. VS and nursing notes reviewed. Non-toxic appearing. Heart is irregularly irregular. No lower extremity edema. Lungs are clear to auscultation. Labs and imaging reviewed. 1. V-tach. s/o amio and cardioversion. Will transition from amio gtt to 400mg po amio after 36 hours of the drip. TSH was in the normal range. Plan for ICD tomorrow and LexiScan. 2. afib. rate controlled. AC with heparin gtt, but will need to address anticoagulation given elevated CHADSVASC. Repeat TTE with EF 50-55%. 3. COVID infection. moderate. off oxygen. Dex 6mg IV daily, nebs, mucinex. 4. CATRACHITO. due to decreasd perfusion. Improving with IVFs. 5. transaminitis. secondary to shock liver and/or COVID. RUQ US with normal CBD. He is s/p ish. 6. Aortic stenosis s/p bioprosethic valve replacement in 2009. 7. HTN. Holding home HCTZ and lisinopril due to CATRACHITO. Start amlodipine here for elevated blood pressures. 8. pancytopenia. ?secondary to COVID. Dispo: pending clinical improvement. Subjective Patient notes that he is feeling much improved this AM. He denies any CP SOB abdominal pain TORO. He was experiencing dizziness/lightheadedness, SOB, and heart racing prior to admission. He believes he tested positive for covid at home. Overall feels improved. Review of Systems Review of Systems: See HPI Physical Exam Physical Exam: General: A&Ox3. NAD. Cooperative. HEENT: Atraumatic, normocephalic. NC in place. Pulm: No increased work of breathing Cardiac: Clinically well perfused. No calf tenderness, trace to no BLE edema. Abdominal: soft, non-tender, non-distended, +BS Skin: warm, dry, no rash Patient was getting ECHO performed during the exam Results & Data Results & Data ([facility]) Vital Signs (Past 12 Hours) Vital Signs Temp Pulse Pulse Resp BP BP BP 04/10/22 07:29 04/10/22 04:15 36.3 C L 58 L 14 159/87 H 04/10/22 03:02 53 L 04/09/22 23:45 04/10/22 00:30 47 L 158/96 H 04/09/22 23:43 45 L 14 170/110 H 04/09/22 22:54 51 L 14 161/89 H 04/09/22 21:00 46 L 14 157/84 H 04/09/22 20:09 04/09/22 20:00 52 L 14 147/86 H Pulse Ox O2 Del Method O2 Flow Rate 04/10/22 07:29 Nasal Cannula 2 04/10/22 04:15 98 Nasal Cannula 2 04/10/22 03:02 04/09/22 23:45 Nasal Cannula 2 04/10/22 00:30 97 Nasal Cannula 2 04/09/22 23:43 99 Nasal Cannula 2 04/09/22 22:54 99 Nasal Cannula 2 04/09/22 21:00 99 Nasal Cannula 2 04/09/22 20:09 94 2 04/09/22 20:00 99 Nasal Cannula 2 Laboratory Results 04/10/22 04/10/2222 Range/Units 06:38 04:16 04:16 WBC 4.29 L (4.8-10.8) K/ul RBC 4.26 L (4.63-6.08) M/uL Hgb 12.8 L (14.0-18.0) g/dl POC Hgb (14.0-18.0) g/dl Hct 38.8 L (40.1-51.0) % POC Hct (42-52) % MCV 91.1 (80.0-100.0) fL MCH 30.0 (25.0-34.0) pg MCHC 33.0 (32.0-36.0) g/dL RDW Std Deviation 48.6 H (36.4-46.3) fL RDW Coeff of Yony 14.6 H (11.5-14.5) % Plt Count 121 L (130-400) K/uL MPV 11.7 (9.4-12.4) fL Immature Gran % (Auto) 0.5 % Neut % (Auto) 81.8 % Lymph % (Auto) 15.6 % [place] % (Auto) 2.1 % Eos % (Auto) 0.0 % Baso % (Auto) 0.0 % Neut # (Auto) 3.51 (1.4-6.5) K/uL Lymph # (Auto) 0.67 L (1.2-3.4) K/uL [place] # (Auto) 0.09 L (0.24-0.82) K/uL Eos # (Auto) 0.00 (0-0.50) K/uL Baso # (Auto) 0.00 (0-0.2) K/uL Immature Gran # (Auto) 0.02 (0.00-0.02) K/uL Smudge Cells Ovalocytes 1+ Echinocytes 1+ PT (9.0-12.0) Seconds INR (0.9-1.1) APTT Pending (21.0-31.0) Seconds PTT Ratio Pending POC Sodium (135-144) mmol/L Sodium 138 (136-145) mmol/L POC Potassium (3.3-5.0) mmol/L Potassium 4.4 (3.5-5.1) mmol/L POC Chloride (101-112) mmol/L Chloride 106 (98-107) mmol/L Carbon Dioxide 26 (21-32) mmol/L POC Total CO2 (24-31) mmol/L Anion Gap 6 (3-11) POC Anion Gap (16-25) mmol/L POC BUN (7-18) mg/dl BUN 36 H (6-23) mg/dl Creatinine 1.28 (0.6-1.4) mg/dl POC Creatinine (0.6-1.3) mg/dl Est Cr Clr Drug Dosing 54.1 Est GFR ( Amer) 59.6 ml/min Est GFR (Non-Af Amer) 51.4 ml/min BUN/Creatinine Ratio 28.1 H (10-20) Glucose 226 H (70-99(Fasting)) mg/dl POC Glucose (other) (70-99) mg/dl Calcium 8.1 L (8.5-10.1) mg/dl POC Ioniz Calcium Alyssa (1.12-1.32) mmol/l Phosphorus (2.5-4.9) mg/dl Magnesium 2.0 (1.7-2.4) mg/dl Total Bilirubin 0.5 (0.2-1.0) mg/dl AST 166 H (13-39) U/L ALT 170 H (7-52) U/L Alkaline Phosphatase 159 H (34-104) U/L Troponin I High Sens 788.0 H* D (0-20) pg/ml Total Protein 7.0 (6.0-8.3) gm/dl Albumin 3.7 (3.4-5.0) gm/dl Globulin 3.3 (2.5-4.0) gm/dl Albumin/Globulin Ratio 1.1 (0.9-2) Lipase (11-82) U/L TSH (0.300-4.500) uIu/ml Adenovirus (PCR) (NotDetected) B. pertussis DNA (PCR) (NotDetected) B.parapertussis DNA PCR (NotDetected) C. pneumoniae DNA (PCR) (NotDetected) Coronavirus OC43 (PCR) (NotDetected) Coronavirus HKU1 (PCR) (NotDetected) Coronavirus 229E (PCR) (NotDetected) SARS-CoV-2 (PCR) (NotDetected) Coronavirus NL63 (PCR) (NotDetected) Human Metapneumovir PCR (NotDetected) Influenza Type A (PCR) (NotDetected) Influenza Type B (PCR) (NotDetected) M. pneumoniae (PCR) (NotDetected) Parainfluenza 1 (PCR) (NotDetected) Parainfluenza 2 (PCR) (NotDetected) Parainfluenza 3 (PCR) (NotDetected) Parainfluenza 4 (PCR) (NotDetected) RSV (PCR) (NotDetected) Entero/Rhino (PCR) (NotDetected) 04/10/22 04/10/22 04/09/22 Range/Units 04:16 01:04 20:40 WBC (4.8-10.8) K/ul RBC (4.63-6.08) M/uL Hgb (14.0-18.0) g/dl POC Hgb (14.0-18.0) g/dl Hct (40.1-51.0) % POC Hct (42-52) % MCV (80.0-100.0) fL MCH (25.0-34.0) pg MCHC (32.0-36.0) g/dL RDW Std Deviation (36.4-46.3) fL RDW Coeff of Yony (11.5-14.5) % Plt Count (130-400) K/uL MPV (9.4-12.4) fL Immature Gran % (Auto) % Neut % (Auto) % Lymph % (Auto) % [place] % (Auto) % Eos % (Auto) % Baso % (Auto) % Neut # (Auto) (1.4-6.5) K/uL Lymph # (Auto) (1.2-3.4) K/uL [place] # (Auto) (0.24-0.82) K/uL Eos # (Auto) (0-0.50) K/uL Baso # (Auto) (0-0.2) K/uL Immature Gran # (Auto) (0.00-0.02) K/uL Smudge Cells Ovalocytes Echinocytes PT (9.0-12.0) Seconds INR (0.9-1.1) APTT Cancelled 27.7 (21.0-31.0) Seconds PTT Ratio Cancelled 1.0 POC Sodium (135-144) mmol/L Sodium (136-145) mmol/L POC Potassium (3.3-5.0) mmol/L Potassium (3.5-5.1) mmol/L POC Chloride (101-112) mmol/L Chloride (98-107) mmol/L Carbon Dioxide (21-32) mmol/L POC Total CO2 (24-31) mmol/L Anion Gap (3-11) POC Anion Gap (16-25) mmol/L POC BUN (7-18) mg/dl BUN (6-23) mg/dl Creatinine (0.6-1.4) mg/dl POC Creatinine (0.6-1.3) mg/dl Est Cr Clr Drug Dosing Est GFR ( Amer) ml/min Est GFR (Non-Af Amer) ml/min BUN/Creatinine Ratio (10-20) Glucose (70-99(Fasting)) mg/dl POC Glucose (other) (70-99) mg/dl Calcium (8.5-10.1) mg/dl POC Ioniz Calcium Alyssa (1.12-1.32) mmol/l Phosphorus (2.5-4.9) mg/dl Magnesium (1.7-2.4) mg/dl Total Bilirubin (0.2-1.0) mg/dl AST (13-39) U/L ALT (7-52) U/L Alkaline Phosphatase (34-104) U/L Troponin I High Sens 559.1 H* D (0-20) pg/ml Total Protein (6.0-8.3) gm/dl Albumin (3.4-5.0) gm/dl Globulin (2.5-4.0) gm/dl Albumin/Globulin Ratio (0.9-2) Lipase (11-82) U/L TSH (0.300-4.500) uIu/ml Adenovirus (PCR) (NotDetected) B. pertussis DNA (PCR) (NotDetected) B.parapertussis DNA PCR (NotDetected) C. pneumoniae DNA (PCR) (NotDetected) Coronavirus OC43 (PCR) (NotDetected) Coronavirus HKU1 (PCR) (NotDetected) Coronavirus 229E (PCR) (NotDetected) SARS-CoV-2 (PCR) (NotDetected) Coronavirus NL63 (PCR) (NotDetected) Human Metapneumovir PCR (NotDetected) Influenza Type A (PCR) (NotDetected) Influenza Type B (PCR) (NotDetected) M. pneumoniae (PCR) (NotDetected) Parainfluenza 1 (PCR) (NotDetected) Parainfluenza 2 (PCR) (NotDetected) Parainfluenza 3 (PCR) (NotDetected) Parainfluenza 4 (PCR) (NotDetected) RSV (PCR) (NotDetected) Entero/Rhino (PCR) (NotDetected) 04/09/22 04/09/22 04/09/22 Range/Units 19:06 18:32 18:30 WBC (4.8-10.8) K/ul RBC (4.63-6.08) M/uL Hgb (14.0-18.0) g/dl POC Hgb 13.9 L (14.0-18.0) g/dl Hct (40.1-51.0) % POC Hct 41 L (42-52) % MCV (80.0-100.0) fL MCH (25.0-34.0) pg MCHC (32.0-36.0) g/dL RDW Std Deviation (36.4-46.3) fL RDW Coeff of Yony (11.5-14.5) % Plt Count (130-400) K/uL MPV (9.4-12.4) fL Immature Gran % (Auto) % Neut % (Auto) % Lymph % (Auto) % [place] % (Auto) % Eos % (Auto) % Baso % (Auto) % Neut # (Auto) (1.4-6.5) K/uL Lymph # (Auto) (1.2-3.4) K/uL [place] # (Auto) (0.24-0.82) K/uL Eos # (Auto) (0-0.50) K/uL Baso # (Auto) (0-0.2) K/uL Immature Gran # (Auto) (0.00-0.02) K/uL Smudge Cells Ovalocytes Echinocytes PT 11.6 (9.0-12.0) Seconds INR 1.1 (0.9-1.1) APTT (21.0-31.0) Seconds PTT Ratio POC Sodium 142 (135-144) mmol/L Sodium (136-145) mmol/L POC Potassium 3.6 (3.3-5.0) mmol/L Potassium (3.5-5.1) mmol/L POC Chloride 105 (101-112) mmol/L Chloride (98-107) mmol/L Carbon Dioxide (21-32) mmol/L POC Total CO2 27 (24-31) mmol/L Anion Gap (3-11) POC Anion Gap 14.0 L (16-25) mmol/L POC BUN 32 H (7-18) mg/dl BUN (6-23) mg/dl Creatinine (0.6-1.4) mg/dl POC Creatinine 1.5 H (0.6-1.3) mg/dl Est Cr Clr Drug Dosing Est GFR ( Amer) ml/min Est GFR (Non-Af Amer) ml/min BUN/Creatinine Ratio (10-20) Glucose (70-99(Fasting)) mg/dl POC Glucose (other) 176 H (70-99) mg/dl Calcium (8.5-10.1) mg/dl POC Ioniz Calcium Alyssa 1.13 (1.12-1.32) mmol/l Phosphorus (2.5-4.9) mg/dl Magnesium (1.7-2.4) mg/dl Total Bilirubin (0.2-1.0) mg/dl AST (13-39) U/L ALT (7-52) U/L Alkaline Phosphatase (34-104) U/L Troponin I High Sens (0-20) pg/ml Total Protein (6.0-8.3) gm/dl Albumin (3.4-5.0) gm/dl Globulin (2.5-4.0) gm/dl Albumin/Globulin Ratio (0.9-2) Lipase (11-82) U/L TSH (0.300-4.500) uIu/ml Adenovirus (PCR) Not Detected (NotDetected) B. pertussis DNA (PCR) Not Detected (NotDetected) B.parapertussis DNA PCR Not Detected (NotDetected) C. pneumoniae DNA (PCR) Not Detected (NotDetected) Coronavirus OC43 (PCR) Not Detected (NotDetected) Coronavirus HKU1 (PCR) Not Detected (NotDetected) Coronavirus 229E (PCR) Not Detected (NotDetected) SARS-CoV-2 (PCR) DETECTED A* (NotDetected) Coronavirus NL63 (PCR) Not Detected (NotDetected) Human Metapneumovir PCR Not Detected (NotDetected) Influenza Type A (PCR) Not Detected (NotDetected) Influenza Type B (PCR) Not Detected (NotDetected) M. pneumoniae (PCR) Not Detected (NotDetected) Parainfluenza 1 (PCR) Not Detected (NotDetected) Parainfluenza 2 (PCR) Not Detected (NotDetected) Parainfluenza 3 (PCR) Not Detected (NotDetected) Parainfluenza 4 (PCR) Not Detected (NotDetected) RSV (PCR) Not Detected (NotDetected) Entero/Rhino (PCR) Not Detected (NotDetected) 04/09/22 04/09/22 04/09/22 Range/Units 18:30 18:30 18:30 WBC 5.79 (4.8-10.8) K/ul RBC 4.51 L (4.63-6.08) M/uL Hgb 13.7 L (14.0-18.0) g/dl POC Hgb (14.0-18.0) g/dl Hct 40.7 (40.1-51.0) % POC Hct (42-52) % MCV 90.2 (80.0-100.0) fL MCH 30.4 (25.0-34.0) pg MCHC 33.7 (32.0-36.0) g/dL RDW Std Deviation 48.1 H (36.4-46.3) fL RDW Coeff of Yony 14.5 (11.5-14.5) % Plt Count 121 L (130-400) K/uL MPV 11.5 (9.4-12.4) fL Immature Gran % (Auto) 0.5 % Neut % (Auto) 24.7 % Lymph % (Auto) 68.7 % [place] % (Auto) 3.8 % Eos % (Auto) 1.6 % Baso % (Auto) 0.7 % Neut # (Auto) 1.43 (1.4-6.5) K/uL Lymph # (Auto) 3.98 H (1.2-3.4) K/uL [place] # (Auto) 0.22 L (0.24-0.82) K/uL Eos # (Auto) 0.09 (0-0.50) K/uL Baso # (Auto) 0.04 (0-0.2) K/uL Immature Gran # (Auto) 0.03 H (0.00-0.02) K/uL Smudge Cells Present Ovalocytes Echinocytes PT (9.0-12.0) Seconds INR (0.9-1.1) APTT (21.0-31.0) Seconds PTT Ratio POC Sodium (135-144) mmol/L Sodium 139 (136-145) mmol/L POC Potassium (3.3-5.0) mmol/L Potassium 3.7 (3.5-5.1) mmol/L POC Chloride (101-112) mmol/L Chloride 107 (98-107) mmol/L Carbon Dioxide 25 (21-32) mmol/L POC Total CO2 (24-31) mmol/L Anion Gap 7 (3-11) POC Anion Gap (16-25) mmol/L POC BUN (7-18) mg/dl BUN 33 H (6-23) mg/dl Creatinine 1.45 H (0.6-1.4) mg/dl POC Creatinine (0.6-1.3) mg/dl Est Cr Clr Drug Dosing Not Reportable Est GFR ( Amer) 51.2 ml/min Est GFR (Non-Af Amer) 44.2 ml/min BUN/Creatinine Ratio 22.8 H (10-20) Glucose 179 H (70-99(Fasting)) mg/dl POC Glucose (other) (70-99) mg/dl Calcium 7.9 L (8.5-10.1) mg/dl POC Ioniz Calcium Alyssa (1.12-1.32) mmol/l Phosphorus 3.2 (2.5-4.9) mg/dl Magnesium 2.1 (1.7-2.4) mg/dl Total Bilirubin 0.8 (0.2-1.0) mg/dl AST 142 H (13-39) U/L ALT 102 H (7-52) U/L Alkaline Phosphatase 146 H (34-104) U/L Troponin I High Sens 44.0 H (0-20) pg/ml Total Protein 6.9 (6.0-8.3) gm/dl Albumin 3.6 (3.4-5.0) gm/dl Globulin 3.3 (2.5-4.0) gm/dl Albumin/Globulin Ratio 1.1 (0.9-2) Lipase 15 (11-82) U/L TSH 1.414 (0.300-4.500) uIu/ml Adenovirus (PCR) (NotDetected) B. pertussis DNA (PCR) (NotDetected) B.parapertussis DNA PCR (NotDetected) C. pneumoniae DNA (PCR) (NotDetected) Coronavirus OC43 (PCR) (NotDetected) Coronavirus HKU1 (PCR) (NotDetected) Coronavirus 229E (PCR) (NotDetected) SARS-CoV-2 (PCR) (NotDetected) Coronavirus NL63 (PCR) (NotDetected) Human Metapneumovir PCR (NotDetected) Influenza Type A (PCR) (NotDetected) Influenza Type B (PCR) (NotDetected) M. pneumoniae (PCR) (NotDetected) Parainfluenza 1 (PCR) (NotDetected) Parainfluenza 2 (PCR) (NotDetected) Parainfluenza 3 (PCR) (NotDetected) Parainfluenza 4 (PCR) (NotDetected) RSV (PCR) (NotDetected) Entero/Rhino (PCR) (NotDetected) Diagnostic Findings Chest X-Ray 04/09/22 18:20 XR chest 1V portable HISTORY: 81 years-old Male Chest pain, nonspecific COMPARISON: 11/09/2021 TECHNIQUE: AP view of the chest FINDINGS: Cardiac silhouette is enlarged. Prior median sternotomy with cardiac valvular prosthesis. No pneumothorax or overt pulmonary edema. Blunting of the costophrenic angles with mild left lung base densities. Degenerative changes of the shoulders and spine. IMPRESSION: 1. Cardiomegaly without pulmonary edema. 2. Trace pleural effusions with mild left lung base opacities, likely atelectatic. Liver Ultrasound 04/09/22 22:01 ABDOMINAL ULTRASOUND, RIGHT UPPER QUADRANT HISTORY: transaminitis. COMPARISON: Abdominal ultrasound 11/08/2021. FINDINGS: Pancreas: Obscured by overlying bowel gas. Liver: Unremarkable. Gallbladder: The gallbladder is surgically absent. CBD: 3 mm. Right kidney: No hydronephrosis. Miscellaneous: A small right pleural effusion is noted. IMPRESSION: 1. Prior cholecystectomy. 2. Normal caliber common bile duct. 3. Small right pleural effusion. Resident Activity Tracking Resident Involvement: Resident Care Provided Care Provided: Adult Hospital Medicine (1) Coronary artery disease Associated angina: without angina Coronary Disease-Associated Artery/Lesion type: [place] artery [place] vs. transplanted heart: [place] heart Qualified Code(s): I25.10 - Atherosclerotic heart disease of [place] coronary artery without angina pectoris (2) Aortic stenosis Cardiac valve disease etiology: nonrheumatic Qualified Code(s): I35.0 - Nonrheumatic aortic (valve) stenosis (3) Depression Active/Remission status: currently active Depression Type: major depressive disorder Major depression episode severity: mild Major depression recurrence: single episode Qualified Code(s): F32.0 - Major depressive disorder, single episode, mild (4) Acid reflux disease Esophagitis presence: without esophagitis Qualified Code(s): K21.9 - Gastro- esophageal reflux disease without esophagitis (5) Hypertension Hypertension type: essential hypertension Qualified Code(s): I10 - Essential (primary) hypertension
[2022-04-10] MEDS: guaiFENesin 600 MG TABCR PO SCH ×2 (09:07→20:30)
[2022-04-10] MEDS: FOLIC ACID 400 MCG TAB PO SCH (09:08)
[2022-04-10] MEDS: PANTOprazole 40 MG TAB PO SCH (09:08)
[2022-04-10] MEDS: ASPIRIN 81 MG ECTAB PO SCH (09:08)
[2022-04-10] MEDS: buPROPion SR 150 MG TABCR PO SCH ×2 (09:08→21:09)
[2022-04-10] MEDS ORDERED: amLODIPine BESYLATE 5 MG TAB PO ONE (11:18)
--- NOTE | 2022-04-10 11:37 | XCELERA ---
[id number] \\[id number]
--- NOTE | 2022-04-10 12:53 | Cardiology Consultation ---
Date of Consultation April 10, 2022 Assessment & Plan (1) Ventricular tachycardia: (2) COVID-19: (3) Elevated troponin: (4) New onset atrial fibrillation: (5) Aortic stenosis: (6) Coronary artery disease: Plan 1. Ventricular tachycardia: I did have an opportunity to review the EKGs obtained through EMS. These do represent a wide complex tachycardia consistent with ventricular tachycardia. Subsequent to cardioversion his rhythm was atrial fibrillation with a slow ventricular response. Affectively he had sustained ventricular tachycardia and is advised to undergo implantation of an ICD for secondary prevention. I do not think there is an obvious reversible cause. I suppose it is possible that somehow his COVID-19 infection has caused a myocarditis and associated arrhythmia. However, I do not believe there is any way to confirm this. Given his demographic he is certainly at risk for malignant ventricular arrhythmias. Did explain the procedure to the patient in the attendant risks. Recommend implantation prior to discharge. We can continue the amiodarone infusion currently. After 36 hours he can be switched to an oral regimen of 400 mg daily. 2. Atrial fibrillation: This was reportedly a new diagnosis but there is an EKG in his record from October of this year which demonstrates atrial fibrillation. I suspect he has been in atrial fibrillation for few months. Not symptomatic. No high ventricular rates. Treatment at this point centers around reducing his risk of stroke. He will be advised to start systemic anticoagulation prior to discharge. Currently on heparin infusion which we will temporarily discontinue to facilitate his procedures. He can continue on his heparin infusion until we are finished with any potential procedures. At the time of discharge we will make a recommendation regarding anticoagulation. 3. Coronary artery disease: Catheterization performed in 2009 did not reveal any obstructive disease. He had a recent dobutamine echocardiogram which did not demonstrate any evidence of ischemia at peak infusion. He will require some evaluation of his coronaries. He is known to have an anomalous left circumflex which could not be engaged at the last catheterization. Perhaps perfusion imaging would provide adequate results. 4. Elevated troponin: Very mild elevation given his presentation. 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 Likely related to elevated and sustained high heart rates as well as a period of hypotension. 5. Normally functioning bioprosthetic aortic valve History of Present Illness Reason for Consultation: Ventricular tachycardia, atrial fibrillation Requesting Physician: Benjamín Attending Physician: Kiyomi K. Goto, DO History of Present Illness The patient is an 81-year-old gentleman with a history of aortic valve disease status post bioprosthetic aortic valve replacement in 2009. Coronary angiography at that time revealed nonobstructive disease. He may have some history cerebral vascular disease in his known to have frequent PVCs. It seems that he had not been feeling well for up to 2 weeks. He had some general malaise, weakness and a cough. The symptoms became progressive any was prompted by a friend to go to the hospital for evaluation. EMS arrived at his house for transportation the patient was feeling somewhat dizzy. He was noticed to be in a wide complex tachycardia. Based on his symptoms and hemodynamic changes he did undergo cardioversion with 100 joules in route. The patient's rhythm subsequently appeared to be atrial fibrillation with a slow ventricular response. There appeared to have been some period of unresponsiveness in the emergency room with hypotension. Volume administration and time resulted in improved hemodynamics and mentation. Patient was started infusion. He was also started on heparin infusion. He was noted a have a positive test for COVID-19 and treated for that as well. Currently the patient has no specific complaints. He states that in the past 2 weeks he has had some symptoms of chest discomfort. He does not describe this as pain or pressure. The symptoms appear to occur randomly. They lasted for up to half an hour and then resolved. He has been less frequent recently. He denies any sense of palpitation. He denies limiting dyspnea. He does have significant lower extremity weakness and this appears to limit his ambulation. Allergies Allergy/AdvReac Type Severity Reaction Status Date / Time No Known Allergies Allergy Verified 04/13/22 21:53 Home Medications Medication Instructions Recorded Confirmed Type bupropion HCl 150 mg tablet,12 hr 150 mg PO BID #180 ea 10/29/21 04/13/22 Rx sustained-release lisinopril 20 mg tablet 20 mg PO BID #180 tabs 10/29/21 04/13/22 Rx amoxicillin 500 mg tablet 2,000 mg PO DIRECTED PRN 11/07/21 04/13/22 History Prophylaxis aspirin 81 mg tablet,delayed 81 mg PO QAM 11/07/21 04/13/22 History release fluocinonide 0.05 % topical cream 1 applic topical BID PRN .rash 11/07/21 04/13/22 History folic acid 400 mcg tablet 0.4 mg PO QAM 11/07/21 04/13/22 History hydrochlorothiazide 25 mg tablet 25 mg PO QAM 11/07/21 04/13/22 History pantoprazole 40 mg tablet,delayed 40 mg PO QAM #90 tabs 11/19/21 04/13/22 Rx release (Protonix) atorvastatin 80 mg tablet 80 mg PO HS #90 tabs 03/28/22 04/13/22 Rx amiodarone 200 mg tablet 400 mg PO QAM #30 tabs 04/12/22 04/13/22 Rx metoprolol succinate 25 mg 25 mg PO QAM #30 tabs 04/12/22 04/13/22 Rx tablet,extended release 24 hr rivaroxaban 15 mg tablet (Xarelto) 15 mg PO PM #30 tabs 04/12/22 04/13/22 Rx rivaroxaban 20 mg tablet (Xarelto) 20 mg PO QPM #30 tabs 04/15/22 Rx Patient History Medical History (Updated 04/15/22 @ 13:33 by Misha Walker MD) Acute pancreatitis Cervical radiculopathy COVID-19 Difficulty reading due to visual problem Encounter for pre-operative examination Former smoker History of snuff use Hyperhomocystinemia Hypertension Hyperthyroidism Left bundle branch block New onset atrial fibrillation Prediabetes Presence of combination internal cardiac defibrillator (ICD) and pacemaker 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, 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, clinical stage TIc Status post biopsies, biopsy stage TIIa [place] grade 3+3 Status post seed implant with cesium 131 as boost 12/08/2006 Status post completion of IMRT/IGRT 02/26/2007" Prostate cancer Pure hypercholesterolemia PVC (premature ventricular contraction) Ventricular tachycardia Surgical History H/O aortic valve repair H/O hernia repair History of laparoscopic cholecystectomy (11/08/21) lap ish/ercp Nov 01 Chambers Status post aortic valve replacement with bioprosthetic valve Family History Mother Heart disease Brother Cancer Lung cancer Unknown Prostate cancer Father Prostate cancer Denies family history of Colon cancer Ovarian cancer Myocardial infarction Breast cancer Social History Smoking Status: Former smoker Tobacco Type: Cigarettes and Smokeless Tobacco (Dip or Chew) Age Started Using Tobacco: 8; Age Quit Using Tobacco: 75; packs per day: 2.5; Second Hand Exposure: No; Hx Alcohol Use: No Hx Substance Use: No Preferred Language: Afghan Communication Ability: Effective Visual Impairment: No Limitations Hearing Ability: Use of Hearing Aid [employer] In[employer] Required: No Beliefs That Will Affect Care: Spiritual marital status: / Current Living Situation: Alone current occupational status: retired How many Children do You have: 2 Feels Safe at Home: Yes Childhood Exposure to Second-Hand Smoke: Yes Diet Comment: regular Dental Care, Regularly: No Physical Activity Frequency: Does not Exercise Seatbelt Use: never Sunscreen Use: No Do you think of yourself as: straight/heterosexual Assistive Devices: Cane Review of Systems Review of Systems: Per HPI. Patient also reports occasional dark streaking of his stool. He occasionally has some blood on the toilet paper. He reports occasional twinges in the neck when turning certain directions. He reports chronic lower extremity edema. Physical Exam Physical Exam: The patient is alert and oriented. Mood and affect appeared normal. He answered all questions appropriately. HEENT: Pupils are equal and reactive to light and accommodation. Extraocular movements are intact. The sclerae are anicteric. Neuro: Cranial nerves intact Neck: Patient's neck is supple. He has palpable carotid pulses bilaterally without bruits on auscultation. There is no evidence of jugular venous distention. The thyroid is not enlarged. Lungs: Normal respiratory effort. Some bronchial breath sounds. Pulses: The patient has palpable radial pulses bilaterally that are equal in intensity Extremities: There was no evidence of hypoperfusion. There is no cyanosis or clubbing. Very mild ankle edema. Skin: I did not appreciate any rashes on examination today. Results & Data ([facility]) Vital Signs (Past 12 Hours) Vital Signs Temp Pulse Pulse Resp BP Pulse Ox O2 Del Method 04/10/22 12:28 36.6 C 60 18 173/104 H 92 Room Air 04/10/22 11:04 36.5 C 68 18 161/101 H 95 Room Air 04/10/22 07:29 Nasal Cannula 04/10/22 04:15 36.3 C L 58 L 14 159/87 H 98 Nasal Cannula 04/10/22 03:02 53 L O2 Flow Rate 04/10/22 12:28 04/10/22 11:04 04/10/22 07:29 2 04/10/22 04:15 2 04/10/22 03:02 Laboratory Results Abnormal Lab Results 04/09/22 04/09/22 04/09/22 18:30 18:30 18:30 WBC 5.79 RBC 4.51 L Hgb 13.7 L POC Hgb Hct 40.7 POC Hct MCV 90.2 MCH 30.4 MCHC 33.7 RDW Std Deviation 48.1 H RDW Coeff of Yony 14.5 Plt Count 121 L MPV 11.5 Immature Gran % (Auto) 0.5 Neut % (Auto) 24.7 Lymph % (Auto) 68.7 Dent % (Auto) 3.8 Eos % (Auto) 1.6 Baso % (Auto) 0.7 Neut # (Auto) 1.43 Lymph # (Auto) 3.98 H Dent # (Auto) 0.22 L Eos # (Auto) 0.09 Baso # (Auto) 0.04 Immature Gran # (Auto) 0.03 H Smudge Cells Present Ovalocytes Echinocytes PT INR APTT PTT Ratio POC Sodium Sodium 139 POC Potassium Potassium 3.7 POC Chloride Chloride 107 Carbon Dioxide 25 POC Total CO2 Anion Gap 7 POC Anion Gap POC BUN BUN 33 H Creatinine 1.45 H POC Creatinine Est Cr Clr Drug Dosing Not Reportable Est GFR ( Amer) 51.2 Est GFR (Non-Af Amer) 44.2 BUN/Creatinine Ratio 22.8 H Glucose 179 H POC Glucose (other) Calcium 7.9 L POC Ioniz Calcium Alyssa Phosphorus 3.2 Magnesium 2.1 Total Bilirubin 0.8 AST 142 H ALT 102 H Alkaline Phosphatase 146 H Troponin I High Sens 44.0 H Total Protein 6.9 Albumin 3.6 Globulin 3.3 Albumin/Globulin Ratio 1.1 Lipase 15 TSH 1.414 Adenovirus (PCR) B. pertussis DNA (PCR) B.parapertussis DNA PCR C. pneumoniae DNA (PCR) Coronavirus OC43 (PCR) Coronavirus HKU1 (PCR) Coronavirus 229E (PCR) SARS-CoV-2 (PCR) Coronavirus NL63 (PCR) Human Metapneumovir PCR Influenza Type A (PCR) Influenza Type B (PCR) M. pneumoniae (PCR) Parainfluenza 1 (PCR) Parainfluenza 2 (PCR) Parainfluenza 3 (PCR) Parainfluenza 4 (PCR) RSV (PCR) Entero/Rhino (PCR) 04/09/22 04/09/22 04/09/22 18:30 18:32 19:06 WBC RBC Hgb POC Hgb 13.9 L Hct POC Hct 41 L MCV MCH MCHC RDW Std Deviation RDW Coeff of Yony Plt Count MPV Immature Gran % (Auto) Neut % (Auto) Lymph % (Auto) Dent % (Auto) Eos % (Auto) Baso % (Auto) Neut # (Auto) Lymph # (Auto) Dent # (Auto) Eos # (Auto) Baso # (Auto) Immature Gran # (Auto) Smudge Cells Ovalocytes Echinocytes PT 11.6 INR 1.1 APTT PTT Ratio POC Sodium 142 Sodium POC Potassium 3.6 Potassium POC Chloride 105 Chloride Carbon Dioxide POC Total CO2 27 Anion Gap POC Anion Gap 14.0 L POC BUN 32 H BUN Creatinine POC Creatinine 1.5 H Est Cr Clr Drug Dosing Est GFR ( Amer) Est GFR (Non-Af Amer) BUN/Creatinine Ratio Glucose POC Glucose (other) 176 H Calcium POC Ioniz Calcium Alyssa 1.13 Phosphorus Magnesium Total Bilirubin AST ALT Alkaline Phosphatase Troponin I High Sens Total Protein Albumin Globulin Albumin/Globulin Ratio Lipase TSH Adenovirus (PCR) Not Detected B. pertussis DNA (PCR) Not Detected B.parapertussis DNA PCR Not Detected C. pneumoniae DNA (PCR) Not Detected Coronavirus OC43 (PCR) Not Detected Coronavirus HKU1 (PCR) Not Detected Coronavirus 229E (PCR) Not Detected SARS-CoV-2 (PCR) DETECTED A* Coronavirus NL63 (PCR) Not Detected Human Metapneumovir PCR Not Detected Influenza Type A (PCR) Not Detected Influenza Type B (PCR) Not Detected M. pneumoniae (PCR) Not Detected Parainfluenza 1 (PCR) Not Detected Parainfluenza 2 (PCR) Not Detected Parainfluenza 3 (PCR) Not Detected Parainfluenza 4 (PCR) Not Detected RSV (PCR) Not Detected Entero/Rhino (PCR) Not Detected 04/09/22 04/10/22 04/10/22 20:40 01:04 04:16 WBC RBC Hgb POC Hgb Hct POC Hct MCV MCH MCHC RDW Std Deviation RDW Coeff of Yony Plt Count MPV Immature Gran % (Auto) Neut % (Auto) Lymph % (Auto) Dent % (Auto) Eos % (Auto) Baso % (Auto) Neut # (Auto) Lymph # (Auto) Dent # (Auto) Eos # (Auto) Baso # (Auto) Immature Gran # (Auto) Smudge Cells Ovalocytes Echinocytes PT INR APTT 27.7 Cancelled PTT Ratio 1.0 Cancelled POC Sodium Sodium POC Potassium Potassium POC Chloride Chloride Carbon Dioxide POC Total CO2 Anion Gap POC Anion Gap POC BUN BUN Creatinine POC Creatinine Est Cr Clr Drug Dosing Est GFR ( Amer) Est GFR (Non-Af Amer) BUN/Creatinine Ratio Glucose POC Glucose (other) Calcium POC Ioniz Calcium Alyssa Phosphorus Magnesium Total Bilirubin AST ALT Alkaline Phosphatase Troponin I High Sens 559.1 H* D Total Protein Albumin Globulin Albumin/Globulin Ratio Lipase TSH Adenovirus (PCR) B. pertussis DNA (PCR) B.parapertussis DNA PCR C. pneumoniae DNA (PCR) Coronavirus OC43 (PCR) Coronavirus HKU1 (PCR) Coronavirus 229E (PCR) SARS-CoV-2 (PCR) Coronavirus NL63 (PCR) Human Metapneumovir PCR Influenza Type A (PCR) Influenza Type B (PCR) M. pneumoniae (PCR) Parainfluenza 1 (PCR) Parainfluenza 2 (PCR) Parainfluenza 3 (PCR) Parainfluenza 4 (PCR) RSV (PCR) Entero/Rhino (PCR) 04/10/22 04/10/22 04/10/22 04:16 04:16 06:38 WBC 4.29 L RBC 4.26 L Hgb 12.8 L POC Hgb Hct 38.8 L POC Hct MCV 91.1 MCH 30.0 MCHC 33.0 RDW Std Deviation 48.6 H RDW Coeff of Yony 14.6 H Plt Count 121 L MPV 11.7 Immature Gran % (Auto) 0.5 Neut % (Auto) 81.8 Lymph % (Auto) 15.6 Dent % (Auto) 2.1 Eos % (Auto) 0.0 Baso % (Auto) 0.0 Neut # (Auto) 3.51 Lymph # (Auto) 0.67 L Dent # (Auto) 0.09 L Eos # (Auto) 0.00 Baso # (Auto) 0.00 Immature Gran # (Auto) 0.02 Smudge Cells Ovalocytes 1+ Echinocytes 1+ PT INR APTT > 139.0 H* PTT Ratio > 5.1 POC Sodium Sodium 138 POC Potassium Potassium 4.4 POC Chloride Chloride 106 Carbon Dioxide 26 POC Total CO2 Anion Gap 6 POC Anion Gap POC BUN BUN 36 H Creatinine 1.28 POC Creatinine Est Cr Clr Drug Dosing 54.1 Est GFR ( Amer) 59.6 Est GFR (Non-Af Amer) 51.4 BUN/Creatinine Ratio 28.1 H Glucose 226 H POC Glucose (other) Calcium 8.1 L POC Ioniz Calcium Alyssa Phosphorus Magnesium 2.0 Total Bilirubin 0.5 AST 166 H ALT 170 H Alkaline Phosphatase 159 H Troponin I High Sens 788.0 H* D Total Protein 7.0 Albumin 3.7 Globulin 3.3 Albumin/Globulin Ratio 1.1 Lipase TSH Adenovirus (PCR) B. pertussis DNA (PCR) B.parapertussis DNA PCR C. pneumoniae DNA (PCR) Coronavirus OC43 (PCR) Coronavirus HKU1 (PCR) Coronavirus 229E (PCR) SARS-CoV-2 (PCR) Coronavirus NL63 (PCR) Human Metapneumovir PCR Influenza Type A (PCR) Influenza Type B (PCR) M. pneumoniae (PCR) Parainfluenza 1 (PCR) Parainfluenza 2 (PCR) Parainfluenza 3 (PCR) Parainfluenza 4 (PCR) RSV (PCR) Entero/Rhino (PCR) 04/10/22 11:25 WBC RBC Hgb POC Hgb Hct POC Hct MCV MCH MCHC RDW Std Deviation RDW Coeff of Yony Plt Count MPV Immature Gran % (Auto) Neut % (Auto) Lymph % (Auto) Dent % (Auto) Eos % (Auto) Baso % (Auto) Neut # (Auto) Lymph # (Auto) Dent # (Auto) Eos # (Auto) Baso # (Auto) Immature Gran # (Auto) Smudge Cells Ovalocytes Echinocytes PT INR APTT PTT Ratio POC Sodium Sodium POC Potassium Potassium POC Chloride Chloride Carbon Dioxide POC Total CO2 Anion Gap POC Anion Gap POC BUN BUN Creatinine POC Creatinine Est Cr Clr Drug Dosing Est GFR ( Amer) Est GFR (Non-Af Amer) BUN/Creatinine Ratio Glucose POC Glucose (other) Calcium POC Ioniz Calcium Alyssa Phosphorus Magnesium Total Bilirubin AST ALT Alkaline Phosphatase Troponin I High Sens 716.5 H* Total Protein Albumin Globulin Albumin/Globulin Ratio Lipase TSH Adenovirus (PCR) B. pertussis DNA (PCR) B.parapertussis DNA PCR C. pneumoniae DNA (PCR) Coronavirus OC43 (PCR) Coronavirus HKU1 (PCR) Coronavirus 229E (PCR) SARS-CoV-2 (PCR) Coronavirus NL63 (PCR) Human Metapneumovir PCR Influenza Type A (PCR) Influenza Type B (PCR) M. pneumoniae (PCR) Parainfluenza 1 (PCR) Parainfluenza 2 (PCR) Parainfluenza 3 (PCR) Parainfluenza 4 (PCR) RSV (PCR) Entero/Rhino (PCR) Diagnostic Findings Echocardiogram performed today revealed normal LV systolic function with ejection fraction of 50%. Mild LVH. Normally functioning bioprosthetic aortic valve with normal gradients. Mild mitral regurgitation. Moderate tricuspid regurgitation with elevated estimated pulmonary pressures. Chest x-ray obtained the time admission revealed cardiomegaly but no acute cardiopulmonary process. Liver ultrasound did not reveal any dilation of the common bile duct were notable abnormality. PG Care Time/CCT Total # of Minutes Spent Total Time Spent with Patient: Total time spent is greater than 50% in coordination of care (as documented) at patient's floor/unit and/or counseling patient: Coding Level of Care Code 09513 INT INP/OBS CARE 3MIN Diagnoses Ventricular tachycardia I47.20 COVID-19 U07.1 Elevated troponin R77.8 New onset atrial fibrillation I48.91 Aortic stenosis I35.0 Cardiac valve disease etiology: nonrheumatic Coronary artery disease I25.10 Associated angina: without angina Coronary Disease-Associated Artery/Lesion type: [place] artery [place] vs. transplanted heart: [place] heart (1) Coronary artery disease Associated angina: without angina Coronary Disease-Associated Artery/Lesion type: [place] artery [place] vs. transplanted heart: [place] heart Qualified Code(s): I25.10 - Atherosclerotic heart disease of [place] coronary artery without angina pectoris (2) Aortic stenosis Cardiac valve disease etiology: nonrheumatic Qualified Code(s): I35.0 - Nonrheumatic aortic (valve) stenosis
[2022-04-10 16:06] LABS: Partial Thromboplastin Ratio > 5.1
[2022-04-10 16:24] LABS: Partial Thromboplastin Time > 139.0 Seconds (21.0-31.0)
--- NOTE | 2022-04-10 17:24 | Electrocardiogram Report ---
Test Reason : Blood Pressure : / mmHG Vent. Rate : 078 BPM Atrial Rate : 081 BPM P-R Int : 000 ms QRS Dur : 154 ms QT Int : 468 ms P-R-T Axes : 000 -50 128 degrees QTc Int : 533 ms Atrial fibrillation with occasional PVCs Left axis deviation Left bundle branch block Abnormal ECG When compared with ECG of 07-NOV-2021 21:26, Current undetermined rhythm precludes rhythm comparison, needs review Confirmed by Eugenio Argueta ([id number]) on 04/10/2022 5:23:43 PM Referred By: REFERRED SELF Confirmed By:Scott Argueta
--- NOTE | 2022-04-10 17:30 | Electrocardiogram Report ---
Test Reason : Blood Pressure : / mmHG Vent. Rate : 042 BPM Atrial Rate : 288 BPM P-R Int : 000 ms QRS Dur : 150 ms QT Int : 556 ms P-R-T Axes : 000 -47 136 degrees QTc Int : 464 ms Atrial fibrillation with slow ventricular response Left axis deviation Left bundle branch block Abnormal ECG When compared with ECG of 09-APR-2022 18:29, (unconfirmed) Nonspecific T wave abnormality now evident in Inferior leads Nonspecific T wave abnormality has replaced inverted T waves in Lateral leads QT has shortened Confirmed by Eugenio Argueta ([id number]) on 04/10/2022 5:29:56 PM Referred By: REFERRED SELF Confirmed By:Scott Argueta
[2022-04-10] MEDS: HEPARIN SODIUM/DEXTROSE 25,000 UNITS/500 ML BAG IV SCH (19:18)
[2022-04-10] MEDS: ATORVASTATIN 40 MG TAB PO SCH (20:30)
[2022-04-10 22:22] LABS: Partial Thromboplastin Ratio 2.3
[2022-04-10 22:57] LABS: Partial Thromboplastin Time 62.2 Seconds (21.0-31.0)
--- NOTE | 2022-04-11 07:23 | Hospitalist Progress Note ---
Date of Service April 11, 2022 Assessment & Plan (1) Ventricular tachyarrhythmia: Plan: Kermit Rogers is an 81 y/o male with PMHx significant for non-obstructive CAD (last TTE in 10/2021 with EF 50-55%, RVSP 50-55), aortic stenosis (s/p bioprosthetic AVR at [facility] in 2010), h/o LBBB, pulmonary hypertension, right ischial pressure sore (stage I), HTN, HLD, hyperthyroidism and prediabetes, who presented to [facility] ED on 04/09 via EMS for wide-complex tachycardia and hemodynamic instability in the setting of acute covid infection now cardioverted and HDS and scheduled for a cardiac cath and ICD placement. #Ventricular tachycardia When EMS found the pt he was reportedly in unstable VT with HR in 200s - s/p Amiodarone 150mg bolus and synchronized cardioversion by EMS with subsequent external pacing for symptomatic bradycardia after cardioversion. Now patient is hemodynamically stable but in a-fib (as described below). Suspect tachyarrhythmia in context of likely undiagnosed chronic a-fib that likely turned to RVR due to COVID-19 infection. Transition to oral amio 400 mg from amio gtt after 36hrs of drip. [] amio 400 mg QAM [] cards consult - rec cath and ICD placement, plan for this today #New onset a. fib No previous diagnosis of a-fib. Found in VT as stated above but currently remains in rate-controlled a-fib with frequent PVCs while on Amiodarone gtt. CHADS-VASc 4 (age, HTN, vascular dx). Will require prison anticoagulation. Currently on heparin gtt. Appreciate cards recs for anticoagulation regimen. [] heparin gtt [] TTE - mild concentric LVH, EF 50-55% #Covid 19 Fever/cough/congestion/weakness x1 week. May have been impetus for above- mentioned problems. Currently requires 2L/min via nasal cannula to maintain sats >90%. No pneumonia and afebrile on presentation. On dexamethasone. Deferred Remdesivir in the setting of transaminitis and CATRACHITO. Patient satting well on RA (goal >90%). Has pulmonary support - duonebs, mucinex, IS/flutter as needed. [] Dexamethasone 6mg IV daily [] Duonebs PRN, Mucinex BID, incentive spirometry/flutter valve #Elevated troponin hsTroponin 44 --> 559.1 --> 788.0 --> 716.5, peaked. EKG without ST/T abnormalities. No chest pain. Suspect demand ischemia due to v-tach/unstable arrhythmia. [] PRN EKG for chest pain #CATRACHITO Cr 1.45, no baseline CKD. Suspect pre-renal injury due to dehydration in context of COVID-19, as well as v-tach/unstable arrhythmia. Given 500 mL NS bolus. Continue with light hydration [] IVF Normosol-R 80 mL/hr [] avoid nephrotoxins, hold home HCTZ/Lisinopril [] AM CMP #Transaminitis ALT 102/AST 142, previously normal at baseline. Suspect mild shock liver due to v-tach/unstable arrhythmia. Of note patient had choledocholithiasis in 10/2021 and had ERCP with stent as well as lap ish at that time. [] liver US - notable for small left pleural effusion only [] AM CMP #Thrombocytopenia Plts 121, previously normal. PT/PTT/INR WNL. Unclear etiology. Upon reeval all cell lines are decreased. Will continue to monitor. Possibly in the setting of covid19 infection. [] CBC #Aortic Stenosis S/p bioprosthetic aortic valve replacement at [facility] in 2009. Reportedly never has been on anti-coagulation. Anticoagulation as above. #HTN Holding home med in setting of CATRACHITO. Given one dose amlodipine 5 mg as BPs >160/100 [] hold home HCTZ/Lisinopril for now in setting of CATRACHITO [] monitor BPs #CAD Non-obstructive, no previous PCI/CABG. Continue home baby ASA. #HLD LDL 81 when checked in 02/2022. Continue home Atorvastatin 80mg. #Prediabetes A1c 6.0 in 02/2022. No meds. #GERD Continue home Protonix #Depression Continue home Wellbutrin #Pressure ulcer (grade I) - present on admission Wound care while inpatient. FEN/GI: NPO, Normosol-R @80cc/hr DVT Prophylaxis: Heparin gtt Code Status: full code Disposition: PCU (2) New onset atrial fibrillation: (3) COVID-19: (4) Elevated troponin: (5) CATRACHITO (acute kidney injury): (6) Transaminitis: (7) Thrombocytopenia: (8) Aortic stenosis: (9) Hypertension: (10) Coronary artery disease: (11) Pure hypercholesterolemia: (12) Prediabetes: (13) Acid reflux disease: (14) Depression: (15) Right ischial pressure sore, stage 1: Admission and Anticipated Discharge Date Admission Date: April 09, 2022 Supervising Physician Co-Signing Physician Notes Attending attestation Pt seen and examined in concert with Dr. Mcnally. In agreement with the documented findings as noted in the resident documentation with any exceptions or additions as noted here. Resting comfortably in bed without recurrence of chest pain or SOB. Does complain of bilateral chronic shoulder pain, chronic neck pain with resultant radiation and some right upper chest wall paresthesias. VS, imaging, labs, nursing notes reviewed. On examination, S1/S2 nl IRR/IRR no MCG. CTAB. Abd NT/ND BS+ve Atrial fibrillation, rate controlled, s/p v-tach and amiodarone with card ioversion - cardiology consult - cath today. transition to amio 400mg, AC as noted. COVID - asymptomatic presently - complete dexamethasone course and monitor for symptoms CATRACHITO - mildly elevated to 1.48 - continue to monitor annie post-cath Transaminitis - improving. trend CMP daily to resolution Pancytopenia - trend CBC daily. Else see resident documentation as noted. Subjective Patient notes that he is feeling well today. Overall feels improved. Appears confused about the plan. Does not recall seeing cardiology. Review of Systems Review of Systems: See HPI Physical Exam Physical Exam: General: A&Ox3. NAD. Cooperative. HEENT: Atraumatic, normocephalic. NC in place. Pulm: CTAB No increased work of breathing Cardiac: Bradycardic, normal S1 S2, no m/r/g. Clinically well perfused. No calf tenderness, trace to no BLE edema. Abdominal: soft, non-tender, non-distended Skin: warm, dry, no rash Results & Data Results & Data ([facility]) Vital Signs (Past 12 Hours) Vital Signs Temp Pulse Pulse Resp BP Pulse Ox O2 Del Method 04/11/22 04:01 58 L 04/11/22 03:19 36.6 C 52 L 18 129/69 94 Room Air 04/10/22 20:00 Room Air 04/10/22 23:41 36.6 C 57 L 18 121/73 94 Room Air 04/10/22 19:37 36.6 C 62 20 113/75 94 Room Air Laboratory Results 04/11/22 04/11/22 04/11/22 Range/Units 08:05 08:05 08:05 WBC 11.90 H (4.8-10.8) K/ul RBC 4.22 L (4.63-6.08) M/uL Hgb 12.6 L (14.0-18.0) g/dl Hct 37.4 L (40.1-51.0) % MCV 88.6 (80.0-100.0) fL MCH 29.9 (25.0-34.0) pg MCHC 33.7 (32.0-36.0) g/dL RDW Std Deviation 46.5 H (36.4-46.3) fL RDW Coeff of Yony 14.6 H (11.5-14.5) % Plt Count 145 (130-400) K/uL MPV 11.5 (9.4-12.4) fL PT 11.8 (9.0-12.0) Seconds INR 1.1 (0.9-1.1) APTT 80.3 H* (21.0-31.0) Seconds PTT Ratio 2.9 Sodium 138 (136-145) mmol/L Potassium 4.2 (3.5-5.1) mmol/L Chloride 104 (98-107) mmol/L Carbon Dioxide 27 (21-32) mmol/L Anion Gap 7 (3-11) BUN 44 H (6-23) mg/dl Creatinine 1.43 H (0.6-1.4) mg/dl Est Cr Clr Drug Dosing 48.4 ml/min Est GFR ( Amer) 52.1 ml/min Est GFR (Non-Af Amer) 45.0 ml/min BUN/Creatinine Ratio 30.8 H (10-20) Glucose 132 H (70-99(Fasting)) mg/dl Calcium 8.1 L (8.5-10.1) mg/dl Total Bilirubin 0.5 (0.2-1.0) mg/dl AST 54 H (13-39) U/L ALT 106 H (7-52) U/L Alkaline Phosphatase 133 H (34-104) U/L Total Protein 6.7 (6.0-8.3) gm/dl Albumin 3.6 (3.4-5.0) gm/dl Globulin 3.1 (2.5-4.0) gm/dl Albumin/Globulin Ratio 1.2 (0.9-2) 04/10/22 04/10/22 Range/Units 21:35 15:25 WBC (4.8-10.8) K/ul RBC (4.63-6.08) M/uL Hgb (14.0-18.0) g/dl Hct (40.1-51.0) % MCV (80.0-100.0) fL MCH (25.0-34.0) pg MCHC (32.0-36.0) g/dL RDW Std Deviation (36.4-46.3) fL RDW Coeff of Yony (11.5-14.5) % Plt Count (130-400) K/uL MPV (9.4-12.4) fL PT (9.0-12.0) Seconds INR (0.9-1.1) APTT 62.2 H* > 139.0 H* (21.0-31.0) Seconds PTT Ratio 2.3 > 5.1 Sodium (136-145) mmol/L Potassium (3.5-5.1) mmol/L Chloride (98-107) mmol/L Carbon Dioxide (21-32) mmol/L Anion Gap (3-11) BUN (6-23) mg/dl Creatinine (0.6-1.4) mg/dl Est Cr Clr Drug Dosing ml/min Est GFR ( Amer) ml/min Est GFR (Non-Af Amer) ml/min BUN/Creatinine Ratio (10-20) Glucose (70-99(Fasting)) mg/dl Calcium (8.5-10.1) mg/dl Total Bilirubin (0.2-1.0) mg/dl AST (13-39) U/L ALT (7-52) U/L Alkaline Phosphatase (34-104) U/L Total Protein (6.0-8.3) gm/dl Albumin (3.4-5.0) gm/dl Globulin (2.5-4.0) gm/dl Albumin/Globulin Ratio (0.9-2) Diagnostic Findings Echo 04/10/22 Left ventricular systolic function is low normal. There is mild concentric left ventricular hypertrophy. There is a bioprosthetic aortic valve The gradient is normal for this prosthetic aortic valve. There is mild mitral regurgitation There is moderate tricuspid regurgitation Right ventricular systolic pressure is elevated at 50-60mmHg There inferior vena cava is mildly dilated. Mild concentric LVH EJ 50-55%. Resident Activity Tracking Resident Involvement: Resident Care Provided Care Provided: Adult Hospital Medicine (1) Coronary artery disease Associated angina: without angina Coronary Disease-Associated Artery/Lesion type: [place] artery [place] vs. transplanted heart: [place] heart Qualified Code(s): I25.10 - Atherosclerotic heart disease of [place] coronary artery witho ut angina pectoris (2) Aortic stenosis Cardiac valve disease etiology: nonrheumatic Qualified Code(s): I35.0 - Nonrheumatic aortic (valve) stenosis (3) Depression Active/Remission status: currently active Depression Type: major depressive disorder Major depression episode severity: mild Major depression recurrence: single episode Qualified Code(s): F32.0 - Major depressive disorder, single epi sode, mild (4) Acid reflux disease Esophagitis presence: without esophagitis Qualified Code(s): K21.9 - Gastro- esophageal reflux disease without esophagitis (5) Hypertension Hypertension type: essential hypertension Qualified Code(s): I10 - Essential (primary) hypertension
[2022-04-11 08:29] LABS: Hematocrit (blood only) 37.4 % (40.1-51.0); Hemoglobin 12.6 g/dl (14.0-18.0); Mean Corpuscular Hemoglobin 29.9 pg (25.0-34.0); Mean Corpuscular Hgb Conc 33.7 g/dL (32.0-36.0); Mean Corpuscular Volume 88.6 fL (80.0-100.0); Mean Platelet Volume 11.5 fL (9.4-12.4); Platelet Count 145 K/uL (130-400); RDW Coefficient of Variation 14.6 % (11.5-14.5); RDW Standard Deviation 46.5 fL (36.4-46.3); Red Blood Count 4.22 M/uL (4.63-6.08)
[2022-04-11 08:55] LABS: Albumin Globulin Ratio 1.2 (0.9-2); Albumin Level 3.6 gm/dl (3.4-5.0); BUN Creatinine Ratio 30.8 (10-20); Bilirubin,Total 0.5 mg/dl (0.2-1.0); Calcium 8.1 mg/dl (8.5-10.1); Creatinine Clr Calc Pharmacy 48.4 ml/min; Est GFR (African American) 52.1 ml/min; Globulin 3.1 gm/dl (2.5-4.0); Potassium 4.2 mmol/L (3.5-5.1); Total Protein 6.7 gm/dl (6.0-8.3)
[2022-04-11 08:58] LABS: INR 1.1 (0.9-1.1); Partial Thromboplastin Ratio 2.9; Prothrombin Time 11.8 Seconds (9.0-12.0)
[2022-04-11 09:10] LABS: Partial Thromboplastin Time 80.3 Seconds (21.0-31.0)
[2022-04-11] MEDS: buPROPion SR 150 MG TABCR PO SCH ×2 (10:14→21:27)
[2022-04-11] MEDS: ASPIRIN 81 MG ECTAB PO SCH (10:14)
[2022-04-11] MEDS: FOLIC ACID 400 MCG TAB PO SCH (10:14)
[2022-04-11] MEDS: guaiFENesin 600 MG TABCR PO SCH ×2 (10:14→21:27)
[2022-04-11] MEDS: PANTOprazole 40 MG TAB PO SCH (10:14)
[2022-04-11] MEDS: dexAMETHasone 6 MG in SYRINGE 0 ML IV SCH (10:15)
[2022-04-11] MEDS: AMIODARONE 200 MG TAB PO SCH (10:15)
[2022-04-11] MEDS ORDERED: BUPIVACAINE 0.25% 30 ML VIAL ONE (11:46)
[2022-04-11] MEDS ORDERED: WATER, STERILE FOR INJ 10 ML VIAL ONE (11:46)
[2022-04-11] MEDS ORDERED: VANCOMYCIN HCL 1000MG/20ML VIAL ONE (11:46)
[2022-04-11] MEDS ORDERED: LIDOCAINE 1% LOCAL 20 ML VIAL ONE (11:46)
--- NOTE | 2022-04-11 12:21 | Pre Anesthesia Assessment ---
Date of Service April 11, 2022 Pre Sedation Assessment Vital Signs Temp Pulse Pulse Resp BP Pulse Ox O2 Del Method 04/11/22 08:00 Room Air 04/11/22 08:01 36.6 C 54 L 16 139/85 96 Room Air 04/11/22 04:01 58 L 04/11/22 03:19 36.6 C 52 L 18 129/69 94 Room Air 04/10/22 20:00 Room Air 04/10/22 23:41 36.6 C 57 L 18 121/73 94 Room Air 04/10/22 19:37 36.6 C 62 20 113/75 94 Room Air 04/10/22 12:28 36.6 C 60 18 173/104 H 92 Room Air Cardiovascular + bradycardic and + irregularly irregular Respiratory + respiratory effort normal Pre-Sedation Airway Assessment Smoking Status: Former smoker Hx Sleep Apnea: No Hx Difficult Intubation: No Short, Thick Neck: No Thyromental Distance: > or= 3.5 Finger Breadths Oral Cavity: + WNL Mallampati Class: III ASA: ASA3 Procedure Planning Contraindications for Sedation: none Current Medications Reviewed: Yes Notes The planned sedation has been discussed with the patient. Informed Consent was obtained. I have identified the patient, determined the appropriateness of sedation and have assessed the patient immediately prior to the procedure. All medicine(s) and interventions are by my order.
[2022-04-11] MEDS ORDERED: MIDAZOLAM HCL 5 MG/ML 1 ML VIAL ONE (12:51)
[2022-04-11] MEDS ORDERED: fentaNYL citrate 100 MCG/2 ML VIAL ONE (12:51)
[2022-04-11] MEDS ORDERED: HEPARIN (PORCINE) 1000 UNIT/ML 10 ML (CATH LAB USE ONLY) ONE (13:03)
[2022-04-11] MEDS ORDERED: niCARdipine HCL INJ 2.5 MG/ML 10 ML AMP ONE (13:03)
[2022-04-11] MEDS ORDERED: NITROGLYCERIN/D5W 100MCG/ML 20ML SYR ONE (13:12)
--- NOTE | 2022-04-11 14:31 | Cardiac Catheterization ---
[facility] Data: Marketing Support Specialist Cardiac Status Clinical evaluation leading to the procedure CAD Presenation: Sx unlikely to be ischemic Diagnostic Physicians Name: Eugenio Argueta MD Closure Device Recommendations: Medical Therapy and/or Counseling Cardiac Cath Procedure Full Procedure Date April 11, 2022 Pre-Procedure Diagnosis Pre-Procedure Diagnosis: Arrhythmia AUC Score AUC Score: 7 Post-Procedure Diagnosis Post-Procedure Diagnosis: Normal Coronary Arteries Procedure(s) Performed Procedure(s) Performed: Coronary Angiography Optometrist Assistant Eugenio Argueta MD General Manager In Training(s) none Estimated Blood Loss Estimated Blood Loss: 12cc Medication(s) Medication(s): Fentanyl, Heparin, Lidocaine 1%, Nicardipine, Nitroglycerin and Versed Summary of Findings Procedure performed: Coronary angiography Staff wallet assembler: Eugenio rAgueta MD Indication: The patient is an 81-year-old gentleman who presented to the hospital with sustained ventricular tachycardia. He had mild elevation in his cardiac biomarkers. Procedure in detail: The patient was informed of the risks benefits and alternatives to the intended procedure, he understood such and wished to proceed. He was taken to the cardiac catheterization suite in a fasting state. Conscious sedation was admin istered per protocol and the patient was monitored electrocardiographically throughout today's procedure. The right wrist area was prepped and draped in usual sterile fashion. This area was anesthetized using subcutaneous administration of a lidocaine solution. The right radial artery was then accessed using Seldinger technique, and a arterial sheath was placed at this site over a guidewire. Attempts at advancing a catheter over a guidewire were unsuccessful as there appeared to be an obstruction in the vicinity of the antecubital fossa. Different wires and catheters were tried prior to abandoning this access site. The left radial area was subsequently prepped and draped in usual sterile fashion. Area over the left radial artery was then anesthetized. Left radial artery was subsequently accessed using Seldinger technique and a sheath was placed over guidewire at this site. The sheath was used to facilitate passage of the cardiac catheter for coronary angiography. Coronary angiography was then obtained in multiple orthogonal views prior to removal of the catheter. 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 Prior attempts to engage the artery selectively using femoral access were hampered by tortuosity of the femoral artery. There was some tortuosity via the left radial approach as well which hampered catheter manipulation. Prior to selective engagement of the left circumflex we encountered significant spasm of the left radial and brachial system which eventually precluded further attempts at angiography. At this point the procedure was concluded. At the conclusion of the procedure the sheath was removed and hemostasis was achieved at the access site using manual pressure. The patient tolerated procedure well, there were no immediate complications. Equipment used: 5 [place] tiger 4, 5 [place] JR4, 5 [place] pigtail Findings: Coronary angiography Left main: There was no left main coronary artery Left anterior descending: Left anterior descending arose from the left coronary cusp. It is normal in size and caliber and reached the apex. It produced a medium-sized 1st diagonal a large 2nd diagonal in 2 additional diminutive diagonal branches. No obstructive disease in this vessel Left circumflex: Left circumflex was known to arise from the right coronary cusp. However, this could not be selectively engaged in no images were available for evaluation. Right coronary artery: Right coronary artery arose from the right coronary cusp that was normal in size and caliber. It produced a PDA. There is no obstructive disease in this vessel. 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 Hemodynamics Rest Ao:: 96/57 mm of mercury Final Ao: 117/71 mm of mercury LV: n/a Recommendations Recommendations: Medical Therapy and/or Counseling Specimens Specimens: None Radiation Exposure (mGy) 1197 Contrast (mls) 65 Procedural Complication(s) None Disposition PCU I attest to the content of the Intraoperative Record and any orders documented therein. Any exceptions are noted below. [facility] Card Cath Procedure Codes Cardiac Catheterization Procedure 1: Cardiovascular Cath Procedures: 90947 Coronaries Moderate Sedation Procedure 1: Sedation/Anesthesia: 15518 Mod Sedation by the same physician;Init15 Min Child Age 5 & Up Procedure 2: Sedation/Anesthesia: 06900 Mod Sedation by the same physician; Ea [id number] Minutes PG Care Time/CCT Total # of Minutes Spent Total Time Spent with Patient: Total time spent is greater than 50% in coordination of care (as documented) at patient's floor/unit and/or counseling patient:
[2022-04-11] MEDS ORDERED: ceFAZolin 330 MG/ML 1 GM VIAL ONE (14:35)
[2022-04-11] MEDS ORDERED: NORMOSOL-R 1,000 ML IV SCH (16:00)
--- NOTE | 2022-04-11 16:01 | Electrophysiology Report ---
Date of Service April 11, 2022 Electrophysiology Procedure Electrophysiology Procedure Report Procedure performed: Implantation of a biventricular ICD Staff senior it specialist: Eugenio Argueta MD Indication: The patient is an 81-year-old gentleman who presented with sustained ventricular tachycardia. Is also noted to have an element of bradycardia and borderline LV systolic function. He is felt to be a good candidate for an ICD as secondary prevention against sudden cardiac . A biventricular device was selected as he is anticipated to have significant ventricular pacing and has borderline LV systolic function. Procedure in detail: The patient was informed of the risks benefits and alternatives to the intended procedure and he wished to proceed. He was taken to the electrophysiology suite in a fasting state. A preoperative antibiotic had been administered. The patient was monitored electrocardiographically throughout today's procedure and conscious sedation was administered per protocol. The left upper pectoral area is prepped and draped in usual sterile fashion. This area was anesthetized using subcutaneous administration of a xylocaine solution. An incision was made at this site and carried down to the prepectoralis fascia using sharp dissection. Electrocautery was also employed for dissection as well as for hemostasis. A device pocket was fashioned tissues above the pectoralis muscle. Subsequent to this maneuver the left axillary vein was accessed using modified Seldinger technique. Sheaths were placed over guidewires at this site and used to facilitate passage of the pacing leads to the respective chambers under fluoroscopic guidance. This included right atrial and right ventricular leads. Adequate sensing and threshold parameters were obtained prior to Active fixation of the leads to the endocardial surface. The proximal portion leads were then sutured the prepectoral fascia using nonabsorbable suture. Had a final sheath was advanced over guidewire and used facilitate the passage of a guiding catheter for engagement of the coronary sinus. Limited coronary sinus venography was performed in order to identify a suitable target vessel for the coronary sinus pacing lead. Once identified standard guidewire techniques were employed in order to deliver the lead to the vessel. Adequate sensing threshold parameters as well as the absence of diaphragmatic stimulation at high output were confirmed prior to removal of the guiding catheter. The proximal portion of lead was then sutured to prepectoralis fascia using nonabsorbable suture. The device pocket was irrigated with antibiotic solution. The leads were then attached to the device. The device and leads were then placed in the pocket and pocket was closed in 3 layers of absorbable suture. Steri-Strips and sterile dressing were applied. The device was tested noninvasively prior to conclusion the procedure. The patient tolerated procedure well there no immediate complications. Equipment used: New pulse generator: Field Tax Auditor [employer]. Model number: [id number] serial number [id number] Right atrial lead: Field [employer] Auditor [employer]. Model number: 5076 serial number [id number] Right ventricular lead: Field Tax Auditor [employer]. Model number: 6935M serial number [id number] Coronary sinus lead: Field Tax Auditor Medtronic model 4298 serial number [id number] Measured data: Right atrial lead: Patient was in atrial fibrillation at the time of implant. Sensing was 1.2 mV. No pacing threshold was obtained but the impedance was 460 Ohms Right ventricular lead: R-waves measure 6.3 mV. Pacing threshold 0.6 volts at 0.5 millisecond with a pacing impedance of 575 Ohms Coronary sinus lead: R-waves measured 19 mV. Pacing threshold 1.7 volts at 0.5 millisecond with a pacing impedance of 843 Ohms Impression: Successful implantation of biventricular ICD [facility] Electrophysiology codes Pacing Procedure 1: Pacin BiV electrode w/Pacer / ICD implant, add on code ICD Procedure 1: ICD: 40301 Insert single or dual ICD system PG Moderate Sedation Codes Moderate Sedation Codes Procedure 1: Sedation/Anesthesia: 61772 Mod Sedation by the same physician;Init15 Min Child Age 5 & Up Procedure 2: Sedation/Anesthesia: 99965 Mod Sedation by the same physician; Ea [id number] Minutes
--- NOTE | 2022-04-11 16:02 | Post Anesthesia Assessment ---
Date of Service April 11, 2022 Post Sedation Assessment Vital Signs Temp Pulse Pulse Resp BP Pulse Ox O2 Del Method 04/11/22 08:00 Room Air 04/11/22 08:01 36.6 C 54 L 16 139/85 96 Room Air 04/11/22 04:01 58 L 04/11/22 03:19 36.6 C 52 L 18 129/69 94 Room Air 04/10/22 20:00 Room Air 04/10/22 23:41 36.6 C 57 L 18 121/73 94 Room Air 04/10/22 19:37 36.6 C 62 20 113/75 94 Room Air Recovery Score Activity: Moves 4 extremities Respiration: Deep Breath/Cough Circulation: +/-20% PreAnes Value Consciousness: Fully Awake Oxygen Saturation: > 92% On Room Air Discharge Sedation Level of Care: Fast Track Phase II Post Sedation Plan On clinical assessment, the patient appears to have tolerated the sedation without complications. Patient is recovering as anticipated. Patient will continue to be monitored by nursing and may be discharged when sedation discharge criteria are met per below protocol. Upon Completions of procedure up to 15 minutes continue every 5 minute vital signs and the P.A.R. score; then discharge to a Phase I or Fast Track to Phase II per the following guidelines: * Discharge Patient to appropriate Phase II area if PAR is 8 or greater or return to pre- procedure baseline. The post - procedure orders will be as directed. * If PAR score is less than 8 or not return to pre-procedure baseline then patient will follow Phase I monitoring till PAR is reached for Phase II. The Phase I may be done in procedure room or may call to secure a Phase I area. * If naloxone or flumazenil are used for reversal, hold in Phase I for continue d monitoring from when last reversal dose was given for a minimum of 60 minutes or longer pending the nurse and/or physician discretion of patient condition before discharge to Phase II. Please call the Sedation Physician to re-evaluate and complete post-note for discharge to Phase II area. Do NOT discharge from procedure sedation or Phase 1 until post- sedation evaluation note is complete by procedure /sedation MD Sedation Discharge Instructions to be given to the patient at discharge to home.
[2022-04-11] MEDS ORDERED: oxyCODONE HCL IR 5 MG TAB (IMMEDIATE RELEASE) PO PRN (16:03)
[2022-04-11] MEDS ORDERED: amLODIPine BESYLATE 5 MG TAB PO ONE (17:15)
--- NOTE | 2022-04-11 17:48 | Cardiology Progress Note ---
Date of Service April 11, 2022 Assessment & Plan (1) Ventricular tachycardia: (2) COVID-19: (3) Elevated troponin: (4) New onset atrial fibrillation: (5) Aortic stenosis: (6) Coronary artery disease: Plan 1. Ventricular tachycardia: Patient underwent implantation of biventricular ICD today. Intravenous amiodarone was transition to oral 400 mg daily. I will also add metoprolol. He had some bradycardia in the past but with implantation of his device no concerns in this regard. 2. Atrial fibrillation: No symptoms. Adequate rate control. He will require systemic anticoagulation. However, I would wait 3 days post implant to start systemic anticoagulation. Eliquis would seem a reasonable option. Xarelto is a good alternative. The presence of his bioprosthetic valve does not limit him to warfarin. 3. Coronary artery disease: Catheterization today did not demonstrate any coronary disease although the left circumflex was not visualized. The initial plan was for perfusion study given the known difficulties engaging the circumflex previously. However, he is COVID positive status precluded any nuclear study. This could still be performed in the outpatient setting. 4. Elevated troponin: Very mild elevation given his presentation. I do not think this is outreach representative of an acute coronary syndrome. 5. Normally functioning bioprosthetic aortic valve Amiodarone transition to 400 mg daily I will add metoprolol succinate 25 mg daily [place] NOAC, apixaban versus rivaroxaban in 3 days We will interrogate the patient's device and review his x-ray tomorrow morning. In the absence of evident complication should be stable for discharge at that point. Admission and Anticipated Discharge Date Admission Date: April 09, 2022 Subjective Patient not offer any specific complaints today. No significant breathing difficulty. No sense of palpitation, dizziness or chest pain. Anxious for discharge. Review of Systems Review of Systems: Per HPI Physical Exam Physical Exam: The patient is alert and oriented. Mood and affect appeared normal. He answered all questions appropriately. HEENT: Pupils are equal and reactive to light and accommodation. Extraocular movements are intact. The sclerae are anicteric. Neuro: Cranial nerves intact Lungs: Normal respiratory effort. Some bronchial breath sounds. Pulses: The patient has palpable radial pulses bilaterally that are equal in intensity Extremities: There was no evidence of hypoperfusion. There is no cyanosis or clubbing. Very mild ankle edema. Skin: I did not appreciate any rashes on examination today. Results & Data ([facility]) Vital Signs (Past 12 Hours) Vital Signs Temp Pulse Resp BP BP Pulse Ox O2 Del Method 04/11/22 16:15 36.5 C 60 16 175/91 H 91 Room Air 04/11/22 08:00 Room Air 04/11/22 08:01 36.6 C 54 L 16 139/85 96 Room Air Laboratory Results Abnormal Lab Results 04/10/22 04/11/22 04/11/22 21:35 08:05 08:05 WBC 11.90 H RBC 4.22 L Hgb 12.6 L Hct 37.4 L MCV 88.6 MCH 29.9 MCHC 33.7 RDW Std Deviation 46.5 H RDW Coeff of Yony 14.6 H Plt Count 145 MPV 11.5 PT 11.8 INR 1.1 APTT 62.2 H* 80.3 H* PTT Ratio 2.3 2.9 Sodium Potassium Chloride Carbon Dioxide Anion Gap BUN Creatinine Est Cr Clr Drug Dosing Est GFR ( Amer) Est GFR (Non-Af Amer) BUN/Creatinine Ratio Glucose Calcium Total Bilirubin AST ALT Alkaline Phosphatase Total Protein Albumin Globulin Albumin/Globulin Ratio 04/11/22 08:05 WBC RBC Hgb Hct MCV MCH MCHC RDW Std Deviation RDW Coeff of Yony Plt Count MPV PT INR APTT PTT Ratio Sodium 138 Potassium 4.2 Chloride 104 Carbon Dioxide 27 Anion Gap 7 BUN 44 H Creatinine 1.43 H Est Cr Clr Drug Dosing 48.4 Est GFR ( Amer) 52.1 Est GFR (Non-Af Amer) 45.0 BUN/Creatinine Ratio 30.8 H Glucose 132 H Calcium 8.1 L Total Bilirubin 0.5 AST 54 H ALT 106 H Alkaline Phosphatase 133 H Total Protein 6.7 Albumin 3.6 Globulin 3.1 Albumin/Globulin Ratio 1.2 Diagnostic Findings Patient underwent coronary angiography today. LAD and right coronary artery are normal without obstructive disease. 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 Echocardiogram performed 04/10/2022: Ejection fraction 50%. Mild LVH. Normally functioning bioprosthetic aortic valve. Mild mitral regurgitation and elevated pulmonary pressures. PG Care Time/CCT Total # of Minutes Spent Total Time Spent with Patient: Total time spent is greater than 50% in coordination of care (as documented) at patient's floor/unit and/or counseling patient: Coding Level of Care Code 74959 Subseq Hosp Care Lvl 2 Diagnoses Ventricular tachycardia I47.20 COVID-19 U07.1 Elevated troponin R77.8 New onset atrial fibrillation I48.91 Aortic stenosis I35.0 Cardiac valve disease etiology: nonrheumatic Coronary artery disease I25.10 Coronary Disease-Associated Artery/Lesion type: [place] artery [place] vs. transplanted heart: [place] heart Associated angina: without angina (1) Aortic stenosis Cardiac valve disease etiology: nonrheumatic Qualified Code(s): I35.0 - Nonrheumatic aortic (valve) stenosis (2) Coronary artery disease Coronary Disease-Associated Artery/Lesion type: [place] artery [place] vs. transplanted heart: [place] heart Associated angina: without angina Qualified Code(s): I25.10 - Atherosclerotic heart disease of [place] coronary artery without angina pectoris
[2022-04-11] MEDS: ATORVASTATIN 40 MG TAB PO SCH (21:27)
[2022-04-11] MEDS: METOPROLOL SUCC 25MG EXT REL TAB PO SCH (21:27)
[2022-04-11] MEDS: ceFAZolin 2000MG 2,000 MG/15 ML SYR IV SCH (22:50)
[2022-04-11] MEDS ORDERED: ceFAZolin 1000MG 1,000 MG/7.5 ML SYR IV SCH (23:15)
[2022-04-12] MEDS: ceFAZolin 2000MG 2,000 MG/15 ML SYR IV SCH (06:21)
--- NOTE | 2022-04-12 06:59 | Hospitalist Progress Note ---
Date of Service April 12, 2022 Assessment & Plan (1) Ventricular tachyarrhythmia: Plan: Kermit Rogers is an 81 y/o male with PMHx significant for non-obstructive CAD (last TTE in 10/2021 with EF 50-55%, RVSP 50-55), aortic stenosis (s/p bioprosthetic AVR [place] [facility] [place]), h/o LBBB, pulmonary hypertension, right ischial pressure sore (stage I), HTN, HLD, hyperthyroidism and prediabetes, who presented to [facility] ED on 04/09 via EMS for wide-complex tachycardia and hemodynamic instability in the setting of acute covid infection now cardioverted and HDS and scheduled for a cardiac cath and ICD placement. #Ventricular tachycardia When EMS found the pt he was reportedly in unstable VT with HR in 200s - s/p Amiodarone 150mg bolus and synchronized cardioversion by EMS with subsequent external pacing for symptomatic bradycardia after cardioversion. Now patient is hemodynamically stable but in a-fib (as described below). Suspect tachyarrhythmia in context of likely undiagnosed chronic a-fib that likely turned to RVR due to COVID-19 infection. Transition to oral amio 400 mg from amio gtt after 36hrs of drip. [] amio 400 mg QAM [] cards consult - rec cath and ICD placement, plan for this today #New onset a. fib No previous diagnosis of a-fib. Found in VT as stated above but currently remains in rate-controlled a-fib with frequent PVCs while on Amiodarone gtt. CHADS-VASc 4 (age, HTN, vascular dx). Will require fci anticoagulation. Currently on heparin gtt. Appreciate cards recs for anticoagulation regimen. [] heparin gtt [] TTE - mild concentric LVH, EF 50-55% #Covid 19 Fever/cough/congestion/weakness x1 week. May have been impetus for above- mentioned problems. Currently requires 2L/min via nasal cannula to maintain sats >90%. No pneumonia and afebrile on presentation. On dexamethasone. Deferred Remdesivir in the setting of transaminitis and CATRACHITO. Patient satting well on RA (goal >90%). Has pulmonary support - duonebs, mucinex, IS/flutter as needed. [] Dexamethasone 6mg IV daily [] Duonebs PRN, Mucinex BID, incentive spirometry/flutter valve #Elevated troponin hsTroponin 44 --> 559.1 --> 788.0 --> 716.5, peaked. EKG without ST/T abnormalities. No chest pain. Suspect demand ischemia due to v-tach/unstable arrhythmia. [] PRN EKG for chest pain #CATRACHITO Cr 1.45, no baseline CKD. Suspect pre-renal injury due to dehydration in context of COVID-19, as well as v-tach/unstable arrhythmia. Given 500 mL NS bolus. Continue with light hydration [] IVF Normosol-R 80 mL/hr [] avoid nephrotoxins, hold home HCTZ/Lisinopril [] AM CMP #Transaminitis ALT 102/AST 142, previously normal at baseline. Suspect mild shock liver due to v-tach/unstable arrhythmia. Of note patient had choledocholithiasis in 10/2021 and had ERCP with stent as well as lap ish at that time. [] liver US - notable for small left pleural effusion only [] AM CMP #Thrombocytopenia Plts 121, previously normal. PT/PTT/INR WNL. Unclear etiology. Upon reeval all cell lines are decreased. Will continue to monitor. Possibly in the setting of covid19 infection. [] CBC #Aortic Stenosis S/p bioprosthetic aortic valve replacement [place] [facility] [place]. Reportedly never has been on anti-coagulation. Anticoagulation as above. #HTN Holding home med in setting of CATRACHITO. Given one dose amlodipine 5 mg as BPs >160/100 [] hold home HCTZ/Lisinopril for now in setting of CATRACHITO [] monitor BPs #CAD Non-obstructive, no previous PCI/CABG. Continue home baby ASA. #HLD LDL 81 when checked in 02/2022. Continue home Atorvastatin 80mg. #Prediabetes A1c 6.0 in 02/2022. No meds. #GERD Continue home Protonix #Depression Continue home Wellbutrin #Pressure ulcer (grade I) - present on admission Wound care while inpatient. FEN/GI: NPO, Normosol-R @80cc/hr DVT Prophylaxis: Heparin gtt Code Status: full code Disposition: PCU (2) New onset atrial fibrillation: (3) COVID-19: (4) Elevated troponin: (5) CATRACHITO (acute kidney injury): (6) Transaminitis: (7) Thrombocytopenia: (8) Aortic stenosis: (9) Hypertension: (10) Coronary artery disease: (11) Pure hypercholesterolemia: (12) Prediabetes: (13) Acid reflux disease: (14) Depression: (15) Right ischial pressure sore, stage 1: Admission and Anticipated Discharge Date Admission Date: April 09, 2022 Subjective He notes that he is doing well this morning. Patient reports some soreness at the site of his procedure. Otherwise no CP, SOB, abdominal pain. Review of Systems Review of Systems: See HPI Physical Exam Physical Exam: General: A&Ox3. NAD. Cooperative. HEENT: Atraumatic, normocephalic. NC in place. Pulm: No increased work of breathing Cardiac: Clinically well perfused, trace to no BLE edema. Abdominal: soft, non-distended Skin: warm, dry, no rash Results & Data Results & Data ([facility]) Vital Signs (Past 12 Hours) Vital Signs Temp Pulse Pulse Resp BP Pulse Ox O2 Del Method 04/12/22 02:55 36.6 C 67 18 174/73 H 98 Nasal Cannula 04/11/22 22:08 77 04/12/22 01:26 36.6 C 60 16 154/88 H 96 Nasal Cannula 04/11/22 19:30 Nasal Cannula 04/11/22 21:43 36.6 C 18 99 Nasal Cannula 04/11/22 21:15 65 185/104 H 04/11/22 19:27 36.4 C L 69 18 169/71 H 98 Nasal Cannula O2 Flow Rate 04/12/22 02:55 2 04/11/22 22:08 04/12/22 01:26 2 04/11/22 19:30 2 04/11/22 21:43 2 04/11/22 21:15 04/11/22 19:27 2 Laboratory Results 04/12/22 04/12/22 04/12/22 Range/Units 08:24 08:24 08:24 WBC 14.53 H (4.8-10.8) K/ul RBC 4.33 L (4.63-6.08) M/uL Hgb 13.0 L (14.0-18.0) g/dl Hct 39.5 L (40.1-51.0) % MCV 91.2 (80.0-100.0) fL MCH 30.0 (25.0-34.0) pg MCHC 32.9 (32.0-36.0) g/dL RDW Std Deviation 49.6 H (36.4-46.3) fL RDW Coeff of Yony 14.7 H (11.5-14.5) % Plt Count 169 (130-400) K/uL MPV 11.8 (9.4-12.4) fL Immature Gran % (Auto) 0.5 % Neut % (Auto) 80.6 % Lymph % (Auto) 9.6 % Boundary % (Auto) 9.2 % Eos % (Auto) 0.0 % Baso % (Auto) 0.1 % Neut # (Auto) 11.72 H (1.4-6.5) K/uL Lymph # (Auto) 1.40 (1.2-3.4) K/uL Boundary # (Auto) 1.33 H (0.24-0.82) K/uL Eos # (Auto) 0.00 (0-0.50) K/uL Baso # (Auto) 0.01 (0-0.2) K/uL Immature Gran # (Auto) 0.07 H (0.00-0.02) K/uL PT 11.1 (9.0-12.0) Seconds INR 1.0 (0.9-1.1) APTT 26.8 (21.0-31.0) Seconds PTT Ratio 1.0 Sodium 138 (136-145) mmol/L Potassium 4.2 (3.5-5.1) mmol/L Chloride 103 (98-107) mmol/L Carbon Dioxide 28 (21-32) mmol/L Anion Gap 7 (3-11) BUN 46 H (6-23) mg/dl Creatinine 1.52 H (0.6-1.4) mg/dl Est Cr Clr Drug Dosing 46.3 ml/min Est GFR ( Amer) 48.4 ml/min Est GFR (Non-Af Amer) 41.8 ml/min BUN/Creatinine Ratio 30.3 H (10-20) Glucose 98 (70-99(Fasting)) mg/dl Calcium 8.5 (8.5-10.1) mg/dl Total Bilirubin 0.5 (0.2-1.0) mg/dl AST 33 (13-39) U/L ALT 75 H (7-52) U/L Alkaline Phosphatase 138 H (34-104) U/L Total Protein 7.6 (6.0-8.3) gm/dl Albumin 4.0 (3.4-5.0) gm/dl Globulin 3.6 (2.5-4.0) gm/dl Albumin/Globulin Ratio 1.1 (0.9-2) (1) Coronary artery disease Associated angina: without angina Coronary Disease-Associated Artery/Lesion type: [place] artery [place] vs. transplanted heart: [place] heart Qualified Code(s): I25.10 - Atherosclerotic heart disease of [place] coronary artery without angina pectoris (2) Aortic stenosis Cardiac valve disease etiology: nonrheumatic Qualified Code(s): I35.0 - Nonrheumatic aortic (valve) stenosis (3) Depression Active/Remission status: currently active Depression Type: major depressive disorder Major depression episode severity: mild Major depression recurrence: single episode Qualified Code(s): F32.0 - Major depressive disorder, single episode, mild (4) Acid reflux disease Esophagitis presence: without esophagitis Qualified Code(s): K21.9 - Gastro- esophageal reflux disease without esophagitis (5) Hypertension Hypertension type: essential hypertension Qualified Code(s): I10 - Essential (primary) hypertension
--- NOTE | 2022-04-12 07:30 | XRay Report ---
XR chest 2V PA/lateral CLINICAL HISTORY: Pacemaker insertion. COMPARISON STUDY: Chest radiograph April 09, 2022. FINDINGS: There is no pneumothorax following placement of a left subclavian biventricular pacer/AICD. Median sternotomy wires and a prosthetic cardiac valve are noted. Cardiomegaly is unchanged. There i s no evidence for pulmonary edema. There are small bilateral pleural effusions. There is no consolida tion to suggest pneumonia. Old left-sided rib fractures are incidentally noted. Linear left lower lei g opacities reflect atelectasis. IMPRESSION: No pneumothorax following placement of a left subclavian biventricular pacer/AICD. ACT 112: Negative or not required by law. Electronically signed by: Migel Dalton M.D. 04/12/2022 7:28 AM
[2022-04-12] MEDS: ASPIRIN 81 MG ECTAB PO SCH (08:02)
[2022-04-12] MEDS: PANTOprazole 40 MG TAB PO SCH (08:02)
[2022-04-12] MEDS: METOPROLOL SUCC 25MG EXT REL TAB PO SCH (08:02)
[2022-04-12] MEDS: buPROPion SR 150 MG TABCR PO SCH (08:02)
[2022-04-12] MEDS: guaiFENesin 600 MG TABCR PO SCH (08:02)
[2022-04-12] MEDS: FOLIC ACID 400 MCG TAB PO SCH (08:02)
[2022-04-12] MEDS: AMIODARONE 200 MG TAB PO SCH (08:03)
--- NOTE | 2022-04-12 08:06 | Cardiology Progress Note ---
Date of Service April 12, 2022 Assessment & Plan (1) Ventricular tachycardia: (2) COVID-19: (3) Elevated troponin: (4) New onset atrial fibrillation: (5) Aortic stenosis: (6) Coronary artery disease: Plan 1. Ventricular tachycardia: No discernible etiology. Status post implantation of biventricular ICD yesterday. Normal function without evident complication. We will discharge him on amiodarone and metoprolol. 2. Atrial fibrillation: No symptoms. Adequate rate control. Systemic anticoagulation with a NOAC can be initiated on April 14. He is a good candidate for an attempt at cardioversion after the appropriate period of anticoagulation. 3. Coronary artery disease: Catheterization yesterday did not demonstrate any coronary disease although the left circumflex was not visualized. The initial plan was for perfusion study given the known difficulties engaging the circumflex previously. However, he is COVID positive status precluded any nuclear study. This could still be performed in the outpatient setting. No current symptoms of ischemic coronary disease. 4. Elevated troponin: Very mild elevation given his presentation. I do not think this is architectural representative of an acute coronary syndrome. 5. Normally functioning bioprosthetic aortic valve I believe he is safe for discharge from a cardiac standpoint He should refrain from lifting the left arm above the shoulder behind the neck for 6 weeks No vigorous use of either hand or lifting more than 5 pounds for 7 days. He should keep the wound dry and the Steri-Strips intact until follow-up in our clinic which I will arrange. He can remove the outer bulky dressing over his device tomorrow morning I would discharge him on amiodarone 400 mg daily and metoprolol succinate 25 mg daily in addition to his usual outpatient medications. Systemic anticoagulation with a NOAC can be initiated when April 14 or later. Admission and Anticipated Discharge Date Admission Date: April 09, 2022 Subjective This morning the patient reported some mild discomfort at the implant site. He had some difficulty swallowing one of his pills, but the symptoms appear to have resolved. Occasional coughing. No breathing difficulty. No pain on either hand. Review of Systems Review of Systems: Per HPI Physical Exam Physical Exam: Device implant site is without drainage. No significant hematoma, some soft tissue swelling. No erythema. Good perfusion of both hands and palpable radial pulses bilaterally. Results & Data ([facility]) Vital Signs (Past 12 Hours) Vital Signs Temp Pulse Pulse Resp BP Pulse Ox O2 Del Method 04/12/22 02:55 36.6 C 67 18 174/73 H 98 Nasal Cannula 04/11/22 22:08 77 04/12/22 01:26 36.6 C 60 16 154/88 H 96 Nasal Cannula 04/11/22 21:43 36.6 C 18 99 Nasal Cannula 04/11/22 21:15 65 185/104 H O2 Flow Rate 04/12/22 02:55 2 04/11/22 22:08 04/12/22 01:26 2 04/11/22 21:43 2 04/11/22 21:15 Laboratory Results Abnormal Lab Results 04/11/22 04/11/22 04/11/22 08:05 08:05 08:05 WBC 11.90 H RBC 4.22 L Hgb 12.6 L Hct 37.4 L MCV 88.6 MCH 29.9 MCHC 33.7 RDW Std Deviation 46.5 H RDW Coeff of Yony 14.6 H Plt Count 145 MPV 11.5 PT 11.8 INR 1.1 APTT 80.3 H* PTT Ratio 2.9 Sodium 138 Potassium 4.2 Chloride 104 Carbon Dioxide 27 Anion Gap 7 BUN 44 H Creatinine 1.43 H Est Cr Clr Drug Dosing 48.4 Est GFR ( Amer) 52.1 Est GFR (Non-Af Amer) 45.0 BUN/Creatinine Ratio 30.8 H Glucose 132 H Calcium 8.1 L Total Bilirubin 0.5 AST 54 H ALT 106 H Alkaline Phosphatase 133 H Total Protein 6.7 Albumin 3.6 Globulin 3.1 Albumin/Globulin Ratio 1.2 Diagnostic Findings Chest x-ray demonstrated good lead position without evidence of pneumothorax I performed a complete device interrogation of his biventricular ICD. Normal function on all leads. (1) Aortic stenosis Cardiac valve disease etiology: nonrheumatic Qualified Code(s): I35.0 - Nonrheumatic aortic (valve) stenosis (2) Coronary artery disease Coronary Disease-Associated Artery/Lesion type: [place] artery [place] vs. transplanted heart: [place] heart Associated angina: without angina Qualified Code(s): I25.10 - Atherosclerotic heart disease of [place] coronary artery without angina pectoris
[2022-04-12 09:13] LABS: Basophils # (auto) 0.01 K/uL (0-0.2); Basophils % (auto) 0.1 %; Hematocrit (blood only) 39.5 % (40.1-51.0); Immature Granulocytes # (auto) 0.07 K/uL (0.00-0.02); Immature Granulocytes % (auto) 0.5 %; Lymphocytes % (auto) 9.6 %; Mean Corpuscular Hgb Conc 32.9 g/dL (32.0-36.0); Mean Corpuscular Volume 91.2 fL (80.0-100.0); Mean Platelet Volume 11.8 fL (9.4-12.4); Monocytes # (auto) 1.33 K/uL (0.24-0.82); Monocytes % (auto) 9.2 %; Neutrophils # (auto) 11.72 K/uL (1.4-6.5); Neutrophils % (auto) 80.6 %; Platelet Count 169 K/uL (130-400); RDW Coefficient of Variation 14.7 % (11.5-14.5); RDW Standard Deviation 49.6 fL (36.4-46.3); Red Blood Count 4.33 M/uL (4.63-6.08); White Blood Count 14.53 K/ul (4.8-10.8)
[2022-04-12] MEDS: dexAMETHasone 6 MG in SYRINGE 0 ML IV SCH (09:17)
[2022-04-12 09:33] LABS: Albumin Globulin Ratio 1.1 (0.9-2); BUN Creatinine Ratio 30.3 (10-20); Bilirubin,Total 0.5 mg/dl (0.2-1.0); Calcium 8.5 mg/dl (8.5-10.1); Creatinine Clr Calc Pharmacy 46.3 ml/min; Est GFR (African American) 48.4 ml/min; Est GFR (Non-African American) 41.8 ml/min; Globulin 3.6 gm/dl (2.5-4.0); Potassium 4.2 mmol/L (3.5-5.1); Total Protein 7.6 gm/dl (6.0-8.3)
[2022-04-12 09:40] LABS: Partial Thromboplastin Time 26.8 Seconds (21.0-31.0); Prothrombin Time 11.1 Seconds (9.0-12.0)
--- NOTE | 2022-04-12 14:25 | Discharge Summary ---
Date of Service April 12, 2022 Admission HPI Per Admitting Provider Kermit Rogers is an 81yo male with PMHx significant for non-obstructive CAD (last TTE in 10/2021 with EF 50-55%, RVSP 50-55), aortic stenosis (s/p bioprosthetic AVR [place] [facility]), h/o LBBB, pulmonary hypertension, right ischial pressure sore (stage I), HTN, HLD, hyperthyroidism and prediabetes, who presented to [facility] ED on 04/09 via EMS for wide-complex tachycardia and hemodynamic instability. Patient reports that he was having subjective fever/chills, worsening generalized weakness/lightheadedness, some cough/congestion, decreased PO intake and "feeling sick" for ~1 week. However EMS was called earlier today for significant weakness/confusion and patient was found to be in wide complex tachycardia with BP 90s/50s. Patient was given Amiodarone 150mg IV without change, and then was given Fentanyl 150m cg/Versed 2.5mg as well as synchronized cardioversion 100J, with conversion to a-fib in 60s (NEW A-FIB). En route to [facility], patient was subsequently pale and appeared cyanotic and was placed on 100% O2 via nonrebreather. BP was unable to be obtained and HR was in 30s. Patient was then external paced in ED upon arrival and BP improved to 160s/80s, HR back to a-fib in 60s-80s. External pacing discontinued and VS remained stable. Patient was initially unresponsive to painful stimuli and snoring for ~10 minutes - CPAP applied; then patient spontaneously opened his eyes and was answering questions appropriately and moving all extremities equally. EKG x2 (both s/p d/c of external pacer) showed a-fib with LBBB (chronic), without meeting Sgarbossa criteria. Telemetry monitoring in ED showed persistent a-fib with frequent PVCs but no v-tach or other arrhythmia. On further questioning the patient reports that he has never taken a blood thinner before, denies previous diagnosis of arrhythmia and/or a-fib. He has an 80 pack year smoking history and quit 20 years ago; denies h/o COPD and/or inhaler use but does report getting SOB/wheezing only when he is sick. Denies alcohol use/drug use. He reports that he was prescribed Lasix 20mg PO daily by his hair spinning machine operator (Dr. Kendall [facility]) for LE edema but has only been taking it several times per week due to desire for decreased urinary frequency. Denies previous h/o CHF. In the ED the patient was hypoxic to 80s and required 2L/min nasal cannula to maintain >90%. Afebrile. Labs significant for plts 121 (lower than baseline), BUN 33/Cr 1.45 (baseline Cr 1.2 - 1.3), ALT 102/AST 142 (acute), ALP 146, hsTroponin 44, TSH 1.4. COVID-19+. CXR with cardiomegaly (chronic), without pulmonary edema. With trace pleural effusions and mild LLL opacity (likely atelectasis). In ED patient started on Heparin w/o bolus, Amiodarone gtt. Given NSS 500cc bolus and Zofran 4mg IV x1 as well. Admission Exam Per Admitting Provider General: A&Ox3. NAD. Cooperative. HEENT: Atraumatic, normocephalic. NC in place. Pulm: CTAB A&P. -wheezes, -rales, -rhonchi. Symmetrical chest rise. No increase work of breathing. No respiratory distress. Cardiac: RRR, -mrg. Radial pulses intact and symmetrical. Mild non-pitting pedal edema. Abdominal: soft, non-tender, non-distended, BS x 4 Skin: warm, dry, no rash Principal Diagnosis VT, a. fib Discharge Exam General: A&Ox3. NAD. Cooperative. HEENT: Atraumatic, normocephalic. NC in place. Pulm: No increased work of breathing Cardiac: Clinically well perfused, trace to no BLE edema. Abdominal: soft, non-distended Skin: warm, dry, no rash Discharge Data Allergies Allergy/AdvReac Type Severity Reaction Status Date / Time No Known Allergies Allergy Verified 04/09/22 19:18 Consultations 04/09/22 20:19 ED Decision to Admit Stat 04/09/22 23:43 Consult Cardiology Routine Procedures Performed Operation Date: 04/11/22 11:00 Actual Procedures s Cineradiography w/Routine Exam - Eugenio Argueta MD p Cath, Coronaries ONLY (no LV) - Eugenio Argueta MD p ICD Biventricular Implant - Eugenio Argueta MD Ordered Studies 04/12/22 04/12/22 04/12/22 Range/Units 08:24 08:24 08:24 WBC 14.53 H (4.8-10.8) K/ul RBC 4.33 L (4.63-6.08) M/uL Hgb 13.0 L (14.0-18.0) g/dl Hct 39.5 L (40.1-51.0) % MCV 91.2 (80.0-100.0) fL MCH 30.0 (25.0-34.0) pg MCHC 32.9 (32.0-36.0) g/dL RDW Std Deviation 49.6 H (36.4-46.3) fL RDW Coeff of Yony 14.7 H (11.5-14.5) % Plt Count 169 (130-400) K/uL MPV 11.8 (9.4-12.4) fL Immature Gran % (Auto) 0.5 % Neut % (Auto) 80.6 % Lymph % (Auto) 9.6 % Callahan % (Auto) 9.2 % Eos % (Auto) 0.0 % Baso % (Auto) 0.1 % Neut # (Auto) 11.72 H (1.4-6.5) K/uL Lymph # (Auto) 1.40 (1.2-3.4) K/uL Callahan # (Auto) 1.33 H (0.24-0.82) K/uL Eos # (Auto) 0.00 (0-0.50) K/uL Baso # (Auto) 0.01 (0-0.2) K/uL Immature Gran # (Auto) 0.07 H (0.00-0.02) K/uL PT 11.1 (9.0-12.0) Seconds INR 1.0 (0.9-1.1) APTT 26.8 (21.0-31.0) Seconds PTT Ratio 1.0 Sodium 138 (136-145) mmol/L Potassium 4.2 (3.5-5.1) mmol/L Chloride 103 (98-107) mmol/L Carbon Dioxide 28 (21-32) mmol/L Anion Gap 7 (3-11) BUN 46 H (6-23) mg/dl Creatinine 1.52 H (0.6-1.4) mg/dl Est Cr Clr Drug Dosing 46.3 ml/min Est GFR ( Amer) 48.4 ml/min Est GFR (Non-Af Amer) 41.8 ml/min BUN/Creatinine Ratio 30.3 H (10-20) Glucose 98 (70-99(Fasting)) mg/dl Calcium 8.5 (8.5-10.1) mg/dl Total Bilirubin 0.5 (0.2-1.0) mg/dl AST 33 (13-39) U/L ALT 75 H (7-52) U/L Alkaline Phosphatase 138 H (34-104) U/L Total Protein 7.6 (6.0-8.3) gm/dl Albumin 4.0 (3.4-5.0) gm/dl Globulin 3.6 (2.5-4.0) gm/dl Albumin/Globulin Ratio 1.1 (0.9-2) Chest X-Ray 04/09/22 18:20 XR chest 1V portable HISTORY: 81 years-old Male Chest pain, nonspecific COMPARISON: 11/09/2021 TECHNIQUE: AP view of the chest FINDINGS: Cardiac silhouette is enlarged. Prior median sternotomy with cardiac valvular prosthesis. No pneumothorax or overt pulmonary edema. Blunting of the costophrenic angles with mild left lung base densities. Degenerative changes of the shoulders and spine. IMPRESSION: 1. Cardiomegaly without pulmonary edema. 2. Trace pleural effusions with mild left lung base opacities, likely atelectatic. ACT 112: Negative or not required by law. The above report was generated using voice recognition software. It may contain grammatical, syntax or spelling errors. Electronically signed by: Quinton Wilde M.D. 04/09/2022 7:00 PM Liver Ultrasound 04/09/22 22:01 ABDOMINAL ULTRASOUND, RIGHT UPPER QUADRANT HISTORY: transaminitis. COMPARISON: Abdominal ultrasound 11/08/2021. FINDINGS: Pancreas: Obscured by overlying bowel gas. Liver: Unremarkable. Gallbladder: The gallbladder is surgically absent. CBD: 3 mm. Right kidney: No hydronephrosis. Miscellaneous: A small right pleural effusion is noted. IMPRESSION: 1. Prior cholecystectomy. 2. Normal caliber common bile duct. 3. Small right pleural effusion. Chest X-Ray 04/12/22 07:00 XR chest 2V PA/lateral CLINICAL HISTORY: Pacemaker insertion. COMPARISON STUDY: Chest radiograph April 09, 2022. FINDINGS: There is no pneumothorax following placement of a left subclavian biventricular pacer/AICD. Median sternotomy wires and a prosthetic cardiac valve are noted. Cardiomegaly is unchanged. There is no evidence for pulmonary edema. There are small bilateral pleural effusions. There is no consolidation to suggest pneumonia. Old left-sided rib fractures are incidentally noted. Linear left lower lung opacities reflect atelectasis. IMPRESSION: No pneumothorax following placement of a left subclavian biventricular pacer/AICD. 04/09/22 22:01 US RUQ [US liver] Urgent 04/11/22 11:45 EP Lab Images for PACS ONCE 04/11/22 11:54 CL Cath Imgs for PACS use only Routine Hospital Course (1) Ventricular tachyarrhythmia: Kermit Rogers is an 81 y/o male with PMHx significant for non-obstructive CAD (last TTE in 10/2021 with EF 50-55%, RVSP 50-55), aortic stenosis (s/p bioprosthetic AVR at [facility] [place]), h/o LBBB, pulmonary hypertension, right ischial pressure sore (stage I), HTN, HLD, hyperthyroidism and prediabetes, who presented to [facility] ED on 04/09 via EMS for wide-complex tachycardia and hemodynamic instability in the setting of acute covid infection who was cardioverted now s/p cardiac cath with ICD placement and stable for discharge. #Ventricular tachycardia successfully cardioverted and s/p cardiac cath with ICD placement Patient found to be in unstable VT by EMS. He was successfully cardioverted and has since had a cardiac cath with ICD placement. He is stable on amiodarone 400 mg QAM (transitioned from amio gtt after 36 hrs of treatment). Suspect tachyarrhythmia in context of likely undiagnosed chronic a-fib that likely turned to RVR due to COVID-19 infection. #New onset a. fib No previous diagnosis of a-fib. Likely has been in a. fib for several months which evolved into RVR and triggered VT as above. TTE - mild concentric LVH, EF 50-55%. Metoprolol 25 mg for rate control. CHADS-VASc 4 (age, HTN, vascular dx). Heparin gtt while inpatient. Will require terminal carman anticoagulation. Transition to DOAC - Xarelto 15 mg (CrCl 46.3). First dose 3 days after ICD placement - 04/14/22. Follow with Dr. Kendall for further management. #Covid 19 Fever/cough/congestion/weakness x1 week. May have been impetus for above- mentioned problems. Did have mild O2 requirement on admission. Resolved with management of cardiac events. Not the reason for admission though it did likely contribute to the development of VT. Patient was treated with steroids during hospital stay - d/c on discharge. Remdesivir deferred in the setting of transaminitis and CATRACHITO. He remained mostly asymptomatic from covid - afebrile, normal WBC, no pneumonia on CXR. Pulmonary support with IC, flutter, duonebs, mucinex was available during his stay. No O2 requirement at time of discharge. #Elevated troponin hsTroponin 44 --> 559.1 --> 788.0 --> 716.5, peaked. EKG without ST/T abnormalities. No chest pain. Suspect demand ischemia due to v-tach/unstable arrhythmia. #CATRACHITO w/o baseline CKD Cr 1.45 on admit, no baseline CKD. Suspect pre-renal injury due to dehydration in context of COVID-19, as well as v-tach/unstable arrhythmia. IVF were given during hospitalization. CATRACHITO has not yet improved - 1.52 at the time of discharge. Patient did have recent cardiac cath with exposure to contrast. Repeat CMP warranted following discharge - ordered for 04/15/22. #Transaminitis - improving ALT 102/AST 142 on admit - downtrended during admission. Previously normal at baseline. Suspect mild shock liver due to v-tach/unstable arrhythmia. Of note patient had choledocholithiasis in 10/2021 and had ERCP with stent as well as lap ish at that time. Liver US showed small left pleural effusion only. Monitor outpatient. #Pancytopenia - improving All cell lines decreased possibly in the setting of covid 19 infection. Improved during the course of admission. PT/PTT/INR WNL. Improving at time of discharge. Follow up outpatient. #Aortic Stenosis S/p bioprosthetic aortic valve replacement at [facility] [place]. Reportedly never has been on anti-coagulation. Anticoagulation as above. #HTN Holding home med in setting of CATRACHITO. Given one dose amlodipine 5 mg as BPs >160/100. Resume home dosing on discharge. #CAD Non-obstructive, no previous PCI/CABG. Continue home ASA 81mg. #HLD LDL 81 when checked in 02/2022. Continue home Atorvastatin 80mg. #Prediabetes A1c 6.0 in 02/2022. No meds. #GERD Continue home Protonix #Depression Continue home Wellbutrin #Pressure ulcer (grade I) - present on admission Wound care while inpatient. FEN/GI: NPO, Normosol-R @80cc/hr DVT Prophylaxis: Heparin gtt, d/c with Xarelto Code Status: full code Disposition: PCU (2) New onset atrial fibrillation: (3) COVID-19: (4) Elevated troponin: (5) CATRACHITO (acute kidney injury): (6) Transaminitis: (7) Thrombocytopenia: (8) Aortic stenosis: (9) Hypertension: (10) Coronary artery disease: (11) Pure hypercholesterolemia: (12) Prediabetes: (13) Acid reflux disease: (14) Depression: (15) Right ischial pressure sore, stage 1: Total Time Total Time Spent Total Time Spent (In Minutes): See attending attestation Discharge Plan Discharge Items Patient Disposition: Home - Self-Care Reason For Visit: ?V-TACH, NEW A-FIB Discharge Diagnosis: v-tach, a.fib Activity: Per Instructions section Activity Comment: No lifting left arm above the shoulder behind the neck for 6 weeks. Lifting: No more than 5 pounds Bathing: Keep incision dry Bathing Comment: Keep wound dry and Steri-Strips intact until follow-up next week Non-emergency contact: Primary Care Provider and Wood Cabinetmaker Call non-emergency contact if: your pain is concerning for you and your temperature is above 101.5 Follow-up/Referrals: Juan Manuel Early III, CRNP [Primary Care Provider] - Helio Kendall MD [Physician] - Eugenio Argueta MD [Physician] - Diet: Heart Healthy Addtl Attending Provider Instructions: You were admitted to the hospital for ventricular tachycardia. You were treated with cardioversion, amiodarone, cardiac cath, and ICD placement. Avoid vigorous use of either hand/wrist for 7 days. A discharge summary will be sent to your primary care physician to ensure continuity of care. Please bring this discharge summary with you to your next office appointment so that your provider can review it at that time. Follow-up appointments: We have requested a follow-up appointment with your primary care physician within one week of discharge. Please call their office if you do not hear from them. Will need repeat labs Thursday. We have requested a follow-up appointment with your hair spinning machine operator within one week of discharge. Please call their office if you do not hear from them. Medications: Your medication list has been reviewed and reconciled upon discharge to ensure accuracy and continuity of care. An updated list of all your medications is included with your hospital discharge paperwork. Please review this list closely, and make note of any changes. We sent a new medication called amiodarone to your pharmacy. Take amiodarone 400 mg every day. We sent a new medication called metoprolol to your pharmacy. Take metoprolol 25 mg every day. We sent a new medication called Xarelto to your pharmacy. Take Xarelto 15 mg once a day. First dose 04/14/22 in the morning. [Eliquis was not covered by insurance thus we are using Xarelto instead. We were able to find a coupon for the first month of Xarelto, so the cost will be minimal. You will need to follow up with Dr. Kendall and discuss maloney/choice of blood thinner] If you have any issues filling these prescriptions, please call [phone] and ask to leave a message for Dr. Mcnally. Take your medications as instructed; do not skip a dose of your medicines. Make sure all of your doctors know every medicine you are taking (including qtab-wro-dttgnbl medicines, vitamins, and supplements). Call your primary care provider before taking any new medicines (including over- the- counter medicines, vitamins, and supplements), because some of these may interact with your current medications, or may make your symptoms worse. Tell your primary care provider if you cannot afford your medications. CONTACT YOUR PRIMARY CARE PROVIDER if you experience any of the following: Difficulty following your treatment plan, or difficulty taking medications CALL 911 OR GO TO THE EMERGENCY DEPARTMENT if you experience any of the following: Sudden, severe abdominal pain or nausea/vomiting Severe chest pain, or chest pain that radiates (moves) to your jaw or arm Sudden, severe shortness of breath or difficulty breathing Thank you for allowing us to participate in your care Pending Studies at Discharge: No Stand-Alone Forms: My [facility], Smoking Cessation Medications and DC Order Prescriptions: New amiodarone 200 mg Tablet 400 mg PO QAM Qty: 30 0RF metoprolol succinate 25 mg Tablet Extended Release 24 Hr 25 mg PO QAM Qty: 30 0RF Xarelto 15 mg tablet 15 mg PO PM Qty: 30 0RF Rx Instructions: must administer with evening meal Continued bupropion HCl 150 mg tablet sustained-release 12 hr 150 mg PO BID Qty: 180 2RF lisinopril 20 mg tablet 20 mg PO BID Qty: 180 1RF pantoprazole [Protonix] 40 mg tablet,delayed release (DR/EC) 40 mg PO QAM Qty: 90 3RF atorvastatin 80 mg tablet 80 mg PO HS Qty: 90 3RF aspirin 81 mg Tablet,Delayed Release (Dr/Ec) 81 mg PO QAM folic acid 400 mcg Tablet 0.4 mg PO QAM amoxicillin 500 mg tablet 2,000 mg PO DIRECTED PRN (Reason: Prophylaxis) Rx Instructions: take 1 hour before dental appointment hydrochlorothiazide 25 mg tablet 25 mg PO QAM fluocinonide 0.05 % Cream 1 applic TOPICAL BID PRN (Reason: .rash) Discharge Orders: Discharge Order (Routine); Ordered 04/12/22 Ordered By: Sonam Jauregui/Other Patient Handouts: Anticoagulants, Pacemakers, Living with a Pacemaker, AFib Preventing Stroke, AFib Admission Data Admit Date/Time: 04/09/22 21:51 Attending Provider: Helio Jean Baptiste Admit Provider: Vinod Boston Primary Care Provider: Juan Manuel Early III Other Providers: Antione Elaine ; Eugenio Argueta Other Interventions: Discharge Summary Assessment (RN) Last Done: 04/12/22 14:31 Supervising Physician Co-Signing Physician Notes Attending attestation Pt seen and examined in concert with Dr. Mcnally. In agreement with the docu mented findings as noted in the resident documentation with any exceptions or additions as noted here. Resting comfortably without recurrence of chest pain or SOB. VS, imaging, labs, nursing notes reviewed. On examination, S1/S2 nl IRR/IRR no MCG. CTAB. Abd NT/ND BS+ve Atrial fibrillation, rate controlled, s/p v-tach and amiodarone with cardioversion - cardiology consult - Tolerating amio 400mg, AC as noted. COVID - asymptomatic presently - d/c'd dexamethasone at discharge, monitor for worsening symptoms CATRACHITO - mildly elevated to 1.52, stable from previous - repeat BMP 3 days following discharge, encourage PO hydration Else see resident documentation as noted. Total attending physician time spent with this patient's care on the day of discharge: 35 minutes Resident Activity Tracking Resident Involvement: Resident Care Provided Care Provided: Adult Hospital Medicine
== END 2022-04-12 15:48 | disposition home or self-care (01) | DRG 224 ==
LOC: ED 18:23 → 2S 21:51 → SUATTDRO 21:51 → 2S 22:54
PROC: CLB.CCO (2022-04-11 11:00)

== ENCOUNTER 2022-04-13 21:20 | Inpatient (IN) ==
[2022-04-13] MEDS ORDERED: AMIODARONE 150MG / 100ML D5W IV ONE (21:30)
[2022-04-13] MEDS ORDERED: AMIODARONE 360MG / 200ML D5W IV ONE (21:30)
[2022-04-13] MEDS ORDERED: AMIODARONE / D5W 150 MG/100 ML BAG IV STA (21:35)
[2022-04-13] MEDS ORDERED: STAT IV Infusion **Titration per Protocol STA (21:35)
[2022-04-13] MEDS ORDERED: AMIODARONE IV BOLUS & DRIP IV STA (21:35)
[2022-04-13] MEDS ORDERED: 0.2 MICRON FILTER SET 1 EACH IV STA (21:35)
[2022-04-13] MEDS ORDERED: LORazepam 2 MG/1 ML VIAL ONE (21:40)
[2022-04-13] MEDS ORDERED: AMIODARONE / D5W 360 MG/200 ML BAG IV ONE (21:45)
[2022-04-13 21:59] LABS: Basophils # (auto) 0.02 K/uL (0-0.2); Basophils % (auto) 0.2 %; Eosinophils # (auto) 0.07 K/uL (0-0.50); Eosinophils % (auto) 0.6 %; Hemoglobin 11.6 g/dl (14.0-18.0); Immature Granulocytes # (auto) 0.04 K/uL (0.00-0.02); Immature Granulocytes % (auto) 0.4 %; Lymphocytes # (auto) 2.07 K/uL (1.2-3.4); Lymphocytes % (auto) 18.9 %; Mean Corpuscular Hemoglobin 30.2 pg (25.0-34.0); Mean Corpuscular Hgb Conc 34.1 g/dL (32.0-36.0); Mean Corpuscular Volume 88.5 fL (80.0-100.0); Mean Platelet Volume 12.2 fL (9.4-12.4); Monocytes # (auto) 1.22 K/uL (0.24-0.82); Monocytes % (auto) 11.1 %; Neutrophils # (auto) 7.55 K/uL (1.4-6.5); Neutrophils % (auto) 68.8 %; Platelet Count 153 K/uL (130-400); RDW Coefficient of Variation 14.8 % (11.5-14.5); RDW Standard Deviation 48.8 fL (36.4-46.3); Red Blood Count 3.84 M/uL (4.63-6.08); White Blood Count 10.97 K/ul (4.8-10.8)
[2022-04-13 22:12] LABS: INR 1.1 (0.9-1.1); Partial Thromboplastin Ratio 0.9; Partial Thromboplastin Time 26.1 Seconds (21.0-31.0); Prothrombin Time 11.3 Seconds (9.0-12.0)
[2022-04-13 22:36] LABS: Alanine Aminotransferase 27 U/L (7-52); Albumin Level 3.5 gm/dl (3.4-5.0); Alkaline Phosphatase 102 U/L (34-104); Anion Gap 8 (3-11); Aspartate Aminotransferase 23 U/L (13-39); Bilirubin Direct 0.1 mg/dl (0-0.2); Bilirubin,Total 0.5 mg/dl (0.2-1.0); Blood Urea Nitrogen 57 mg/dl (6-23); Carbon Dioxide 24 mmol/L (21-32); Chloride 107 mmol/L (98-107); Est GFR (African American) 47.6 ml/min; Est GFR (Non-African American) 41.1 ml/min; Glucose 110 mg/dl (70-99(Fasting)); Lipase 59 U/L (11-82); Potassium 3.9 mmol/L (3.5-5.1); Sodium 139 mmol/L (136-145); Total Protein 6.8 gm/dl (6.0-8.3)
--- NOTE | 2022-04-13 22:42 | Emergency Department Note ---
History of Present Illness General Chief complaint: Syncope Time Seen by Provider: 04/13/22 21:29 Source: EMS and RN notes reviewed History of Present Illness Provider complaint: Syncope 81-year-old male presents after syncopal episode today. Patient reports feeling dizzy yesterday and today. He denies any chest pain or difficulty breathing. No headache. Home Medications Medication Instructions Recorded Confirmed Type bupropion HCl 150 mg tablet,12 hr 150 mg PO BID #180 ea 10/29/21 04/13/22 Rx sustained-release lisinopril 20 mg tablet 20 mg PO BID #180 tabs 10/29/21 04/13/22 Rx amoxicillin 500 mg tablet 2,000 mg PO DIRECTED PRN 11/07/21 04/13/22 History Prophylaxis aspirin 81 mg tablet,delayed 81 mg PO QAM 11/07/21 04/13/22 History release fluocinonide 0.05 % topical cream 1 applic topical BID PRN .rash 11/07/21 04/13/22 History folic acid 400 mcg tablet 0.4 mg PO QAM 11/07/21 04/13/22 History hydrochlorothiazide 25 mg tablet 25 mg PO QAM 11/07/21 04/13/22 History pantoprazole 40 mg tablet,delayed 40 mg PO QAM #90 tabs 11/19/21 04/13/22 Rx release (Protonix) atorvastatin 80 mg tablet 80 mg PO HS #90 tabs 03/28/22 04/13/22 Rx amiodarone 200 mg tablet 400 mg PO QAM #30 tabs 04/12/22 04/13/22 Rx metoprolol succinate 25 mg 25 mg PO QAM #30 tabs 04/12/22 04/13/22 Rx tablet,extended release 24 hr rivaroxaban 15 mg tablet (Xarelto) 15 mg PO PM #30 tabs 04/12/22 04/13/22 Rx Allergies Allergy/AdvReac Type Severity Reaction Status Date / Time No Known Allergies Allergy Verified 04/13/22 21:53 Past Med/Surg History Medical History (Updated 04/14/22 @ 00:28 by Vinod Boston MD) Acute pancreatitis Cervical radiculopathy COVID-19 Difficulty reading due to visual problem Encounter for pre-operative examination Former smoker History of snuff use Hyperhomocystinemia Hypertension Hyperthyroidism Left bundle branch block New onset atrial fibrillation Prediabetes Presence of combination internal cardiac defibrillator (ICD) and pacemaker 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, 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, clinical stage TIc Status post biopsies, biopsy stage TIIa [place] grade 3+3 Status post seed implant with cesium 131 as boost 12/08/2006 Status post completion of IMRT/IGRT 02/26/2007" Prostate cancer Pure hypercholesterolemia PVC (premature ventricular contraction) Ventricular tachycardia Surgical History H/O aortic valve repair H/O hernia repair History of laparoscopic cholecystectomy (11/08/21) lap ish/ercp Nov 01 Chambers Status post aortic valve replacement with bioprosthetic valve Family History Mother Heart disease Brother Cancer Lung cancer Unknown Prostate cancer Father Prostate cancer Denies family history of Colon cancer Ovarian cancer Myocardial infarction Breast cancer Social History Smoking Status: Former smoker Tobacco Type: Cigarettes and Smokeless Tobacco (Dip or Chew) Age Started Using Tobacco: 8; Age Quit Using Tobacco: 75; packs per day: 2.5; Second Hand Exposure: No; Hx Alcohol Use: No Hx Substance Use: No Preferred Language: Singaporean Communication Ability: Effective Visual Impairment: No Limitations Hearing Ability: Use of Hearing Aid Stopper Setter Required: No Beliefs That Will Affect Care: None marital status: / Current Living Situation: Alone current occupational status: retired How many Children do You have: 2 Feels Safe at Home: Yes Childhood Exposure to Second-Hand Smoke: Yes Diet Comment: regular Dental Care, Regularly: No Physical Activity Frequency: Does not Exercise Seatbelt Use: never Sunscreen Use: No Do you think of yourself as: straight/heterosexual Assistive Devices: Cane Physical Exam Vital Signs Vital Signs - 24 hr 04/13/22 21:35 04/13/22 21:31 04/13/22 21:36 Temperature Temperature Source Pulse Rate 165 H 166 H Pulse Rate [Apical] 167 H Pulse Rate from SpO2 Sensor 221 H Respiratory Rate 22 22 19 Blood Pressure 93/72 L 94/78 L Blood Pressure [Right Arm] 106/70 Blood Pressure Mean 79 83 Blood Pressure Mean [Right Arm] 82 Blood Pressure Position [Right Arm] Lying Pulse Oximetry 95 93 Oxygen Delivery Method Room Air Room Air Room Air Oxygen Flow Rate Sepsis Recent Fever Within 48 Hours Sepsis New/Unexplained Change in Mental Status Sepsis Action Taken by Nursing Oxygen Flow Rate - Titration Pulse Oximetry Post Tiitration 04/13/22 21:40 04/13/22 21:42 04/13/22 21:44 Temperature Temperature Source Pulse Rate 164 H 162 H 157 H Pulse Rate [Apical] Pulse Rate from SpO2 Sensor 162 H 159 H 156 H Respiratory Rate 21 25 H 18 Blood Pressure 87/72 L 81/69 L Blood Pressure [Right Arm] Blood Pressure Mean 77 73 Blood Pressure Mean [Right Arm] Blood Pressure Position [Right Arm] Pulse Oximetry 95 91 95 Oxygen Delivery Method Room Air Room Air Room Air Oxygen Flow Rate Sepsis Recent Fever Within 48 Hours Sepsis New/Unexplained Change in Mental Status Sepsis Action Taken by Nursing Oxygen Flow Rate - Titration Pulse Oximetry Post Tiitration 04/13/22 21:45 04/13/22 21:49 04/13/22 21:50 Temperature Temperature Source Pulse Rate 155 H 74 Pulse Rate [Apical] Pulse Rate from SpO2 Sensor 154 H 64 Respiratory Rate 21 16 Blood Pressure 87/64 L 138/83 137/84 Blood Pressure [Right Arm] Blood Pressure Mean 71 101 101 Blood Pressure Mean [Right Arm] Blood Pressure Position [Right Arm] Pulse Oximetry 92 90 Oxygen Delivery Method Room Air Room Air Oxygen Flow Rate Sepsis Recent Fever Within 48 Hours Sepsis New/Unexplained Change in Mental Status Sepsis Action Taken by Nursing Oxygen Flow Rate - Titration Pulse Oximetry Post Tiitration 04/13/22 21:50 04/13/22 21:50 04/13/22 21:55 Temperature Temperature Source Pulse Rate 61 Pulse Rate [Apical] Pulse Rate from SpO2 Sensor Respiratory Rate 13 Blood Pressure 119/85 Blood Pressure [Right Arm] Blood Pressure Mean 96 Blood Pressure Mean [Right Arm] Blood Pressure Position [Right Arm] Pulse Oximetry 98 90 98 Oxygen Delivery Method Nasal Cannula Room Air Nasal Cannula Nasal Cannula Oxygen Flow Rate 2 0 2 Sepsis Recent Fever Within 48 Hours Sepsis New/Unexplained Change in Mental Status Sepsis Action Taken by Nursing Oxygen Flow Rate - Titration 2 Pulse Oximetry Post Tiitration 98 04/13/22 22:05 04/13/22 22:00 04/13/22 22:05 Temperature 36.5 C Temperature Source Oral Pulse Rate 60 60 Pulse Rate [Apical] Pulse Rate from SpO2 Sensor Respiratory Rate 23 13 Blood Pressure 134/84 121/82 Blood Pressure [Right Arm] Blood Pressure Mean 100 95 Blood Pressure Mean [Right Arm] Blood Pressure Position [Right Arm] Pulse Oximetry 97 99 Oxygen Delivery Method Nasal Cannula Nasal Cannula Oxygen Flow Rate 2 2 Sepsis Recent Fever Within 48 Hours No Sepsis New/Unexplained Change in Mental Status N/A Sepsis Action Taken by Nursing No Action Required Oxygen Flow Rate - Titration Pulse Oximetry Post Tiitration 04/13/22 22:39 04/13/22 22:45 04/13/22 23:00 Temperature Temperature Source Pulse Rate 63 62 Pulse Rate [Apical] Pulse Rate from SpO2 Sensor Respiratory Rate 14 13 Blood Pressure 134/90 122/81 133/82 Blood Pressure [Right Arm] Blood Pressure Mean 104 94 99 Blood Pressure Mean [Right Arm] Blood Pressure Position [Right Arm] Pulse Oximetry 100 99 Oxygen Delivery Method Nasal Cannula Nasal Cannula Oxygen Flow Rate 2 2 Sepsis Recent Fever Within 48 Hours Sepsis New/Unexplained Change in Mental Status Sepsis Action Taken by Nursing Oxygen Flow Rate - Titration Pulse Oximetry Post Tiitration 04/13/22 23:00 04/13/22 23:15 04/13/22 23:16 Temperature Temperature Source Pulse Rate 60 61 64 Pulse Rate [Apical] Pulse Rate from SpO2 Sensor 60 55 L 59 L Respiratory Rate 15 15 13 Blood Pressure 133/82 109/81 Blood Pressure [Right Arm] Blood Pressure Mean 99 90 Blood Pressure Mean [Right Arm] Blood Pressure Position [Right Arm] Pulse Oximetry 100 98 100 Oxygen Delivery Method Nasal Cannula Nasal Cannula Nasal Cannula Oxygen Flow Rate 2 2 2 Sepsis Recent Fever Within 48 Hours Sepsis New/Unexplained Change in Mental Status Sepsis Action Taken by Nursing Oxygen Flow Rate - Titration Pulse Oximetry Post Tiitration 04/13/22 23:30 04/13/22 23:45 04/14/22 00:02 Temperature Temperature Source Pulse Rate 62 60 61 Pulse Rate [Apical] Pulse Rate from SpO2 Sensor 58 L 62 61 Respiratory Rate 15 14 17 Blood Pressure 135/81 130/75 122/99 Blood Pressure [Right Arm] Blood Pressure Mean 99 93 106 Blood Pressure Mean [Right Arm] Blood Pressure Position [Right Arm] Pulse Oximetry 100 99 100 Oxygen Delivery Method Nasal Cannula Nasal Cannula Nasal Cannula Oxygen Flow Rate 2 2 2 Sepsis Recent Fever Within 48 Hours Sepsis New/Unexplained Change in Mental Status Sepsis Action Taken by Nursing Oxygen Flow Rate - Titration Pulse Oximetry Post Tiitration 04/14/22 00:15 Temperature Temperature Source Pulse Rate 60 Pulse Rate [Apical] Pulse Rate from SpO2 Sensor 60 Respiratory Rate 15 Blood Pressure 124/87 Blood Pressure [Right Arm] Blood Pressure Mean 99 Blood Pressure Mean [Right Arm] Blood Pressure Position [Right Arm] Pulse Oximetry 100 Oxygen Delivery Method Nasal Cannula Oxygen Flow Rate 2 Sepsis Recent Fever Within 48 Hours Sepsis New/Unexplained Change in Mental Status Sepsis Action Taken by Nursing Oxygen Flow Rate - Titration Pulse Oximetry Post Tiitration Physical Exam GENERAL: Ill appearing. Diaphoretic EYES: PERRL B/L NECK: No JVD CV: Tachycardic rate, regular rhythm, normal heart sounds and intact distal pulses. There is no peripheral edema. Palpable radial pulses bue. PULM/CHEST: Effort normal and breath sounds normal. No respiratory distress. No stridor. He has no wheezes. He has no rales. - Chest Wall: He exhibits no tenderness. ABD: The abdomen is soft. NEURO: GCS eye subscore is 4. GCS verbal subscore is 5. GCS motor subscore is 6. SKIN: Large area of ecchymosis over the patient's anterior left chest. Course Course 2128: The patient was evaluated in room B10. A complete history and physical exam was performed Cardiac monitoring: An order was placed for continuous cardiac monitoring. The monitor shows a rate of 160 with ventricular tachycardia rhythm Patient was found to be in ventricular tachycardia. Patient was moved to resuscitation bay. He will be given 250 cc normal saline bolus. Pads were applied to the patient. External medical records were reviewed. Patient was seen in the emergency department April 09, 2022. At that time the patient was having generalized weakness and EMS thought that he was and an unstable ventricular tachycardia. EMS crew treated him with 50 mg of amiodarone but that did not break his rhythm then he was cardioverted in the field with 100 J to an atrial fibrillar patient rate. Patient was admitted to the hospital at that time. Patient had a pacemaker defibrillator placed Dr. Argueta on April 11. The patient had a cardiac catheterization which was negative. Patient was discharged on prescription amiodarone and metoprolol. 2140: Patient's blood pressure stable. Discussed case with Dr. Argueta he states we can try to give the patient a 150 mg amiodarone bolus however he is not out of the ventricular tachycardia you need to cardiovert him. Dr. Argueta states he thinks that the limits on the defibrillator or set just above the patient's current ventricular rate. 2146: Amiodarone bolus going in patient becoming more hypotensive. Patient had synchronized cardioversion performed with with 100 J which cardioverted him into a paced rhythm. Patient was treated with Ativan prior to cardioversion. Patient's blood pressure improved to 138/40 after this. Patient became hypoxic after receiving Ativan. 215: Spoke with Dr. Argueta again. He agrees with starting the patient on amiodarone drip at this time. Patient was supposed to start Xarelto tomorrow Dr. Argueta states not to start Xarelto at this time and no heparin at this time. Labs and imaging are pending. 0034: Vital signs stable on supplemental oxygen via nasal cannula. Patient alert and oriented x3. CT of the head within normal limits. COVID positive. Troponin elevated 157.6. Patient admitted to Dr. Nicola lockwood [facility]. Administered Medications Amiodarone HCl/Dextrose (Nexterone / D5w) 360 mg in 200 mls @ 33.333 mls/hr IV ONE ONE Stop: 04/14/22 03:44 Last Admin: 04/13/22 21:49 Dose: 1 mg/min, 33.3 mls/hr Documented By: Co-signed By: Discontinued Medications Amiodarone HCl/Dextrose (Amiodarone 360mg / 200ml D5w) Confirm Administered Dose 360 mg IV .STK-MED ONE Stop: 04/13/22 21:31 Last Admin: 04/13/22 21:54 Dose: Not Given Documented By: Amiodarone HCl/Dextrose (Amiodarone 150mg / 100ml D5w) Confirm Administered Dose 150 mg IV .STK-MED ONE Stop: 04/13/22 21:31 Last Admin: 04/13/22 21:54 Dose: Not Given Documented By: Amiodarone HCl (Amiodarone Iv Bolus & Drip) 1 each IV NOW STA; Protocol Stop: 04/13/22 21:36 Last Admin: 04/13/22 22:03 Dose: Not Given Documented By: EJ Amiodarone HCl/Dextrose (Nexterone / D5w) 150 mg in 100 mls @ 600 mls/hr IV NOW STA Stop: 04/13/22 21:44 Last Infusion: 04/13/22 21:53 Dose: 0 mls/hr Documented By: EJ Co-signed By: JACLYN Admin: 04/13/22 21:42 Dose: 600 mls/hr Documented By: Co-signed By: EJ Lorazepam (Lorazepam 2 Mg/1 Ml Vial) Confirm Administered Dose 2 mg .ROUTE .STK- MED ONE Stop: 04/13/22 21:41 Last Admin: 04/13/22 21:44 Dose: 1 mg Documented By: Miscellaneous (Stat Iv Infusion Titration Per Protocol) 1 each N/A NOW STA Stop: 04/13/22 21:36 Last Admin: 04/13/22 22:03 Dose: Not Given Documented By: EJ Critical Care Time Critical Care Time: Yes Total Critical Care Time: 53 I have personally spent greater than 53 minutes of critical care time in the direct management of this patient. This includes bedside care, interpretation of diagnostic studies, and testing, discussion with consultants, patient, and family members, and other required patient management activities. This 53 minutes is in excess of all separately billable procedures. Medical Decision Making Laboratory Data Result diagrams: 04/13/22 21:40 04/13/22 21:40 Lab Results 04/13/22 04/13/22 04/13/22 Range/Units 21:40 21:40 21:40 WBC 10.97 H (4.8-10.8) K/ul RBC 3.84 L (4.63-6.08) M/uL Hgb 11.6 L (14.0-18.0) g/dl Hct 34.0 L (40.1-51.0) % MCV 88.5 (80.0-100.0) fL MCH 30.2 (25.0-34.0) pg MCHC 34.1 (32.0-36.0) g/dL RDW Std Deviation 48.8 H (36.4-46.3) fL RDW Coeff of Yony 14.8 H (11.5-14.5) % Plt Count 153 (130-400) K/uL MPV 12.2 (9.4-12.4) fL Immature Gran % (Auto) 0.4 % Neut % (Auto) 68.8 % Lymph % (Auto) 18.9 % Blanco % (Auto) 11.1 % Eos % (Auto) 0.6 % Baso % (Auto) 0.2 % Neut # (Auto) 7.55 H (1.4-6.5) K/uL Lymph # (Auto) 2.07 (1.2-3.4) K/uL Blanco # (Auto) 1.22 H (0.24-0.82) K/uL Eos # (Auto) 0.07 (0-0.50) K/uL Baso # (Auto) 0.02 (0-0.2) K/uL Immature Gran # (Auto) 0.04 H (0.00-0.02) K/uL PT 11.3 (9.0-12.0) Seconds INR 1.1 (0.9-1.1) APTT 26.1 (21.0-31.0) Seconds PTT Ratio 0.9 Sodium 139 (136-145) mmol/L Potassium 3.9 (3.5-5.1) mmol/L Chloride 107 (98-107) mmol/L Carbon Dioxide 24 (21-32) mmol/L Anion Gap 8 (3-11) BUN 57 H (6-23) mg/dl Creatinine 1.54 H (0.6-1.4) mg/dl Est Cr Clr Drug Dosing Not Reportable Est GFR ( Amer) 47.6 ml/min Est GFR (Non-Af Amer) 41.1 ml/min BUN/Creatinine Ratio 37.0 H (10-20) Glucose 110 H (70-99(Fasting)) mg/dl Calcium 8.0 L (8.5-10.1) mg/dl Magnesium 2.0 (1.7-2.4) mg/dl Total Bilirubin 0.5 (0.2-1.0) mg/dl Direct Bilirubin 0.1 (0-0.2) mg/dl AST 23 (13-39) U/L ALT 27 (7-52) U/L Alkaline Phosphatase 102 (34-104) U/L Troponin I High Sens 157.6 H* (0-20) pg/ml Total Protein 6.8 (6.0-8.3) gm/dl Albumin 3.5 (3.4-5.0) gm/dl Lipase 59 (11-82) U/L SARS-CoV-2, RNA, NAAT (NEGATIVE) 04/13/22 Range/Units 22:00 WBC (4.8-10.8) K/ul RBC (4.63-6.08) M/uL Hgb (14.0-18.0) g/dl Hct (40.1-51.0) % MCV (80.0-100.0) fL MCH (25.0-34.0) pg MCHC (32.0-36.0) g/dL RDW Std Deviation (36.4-46.3) fL RDW Coeff of Yony (11.5-14.5) % Plt Count (130-400) K/uL MPV (9.4-12.4) fL Immature Gran % (Auto) % Neut % (Auto) % Lymph % (Auto) % Blanco % (Auto) % Eos % (Auto) % Baso % (Auto) % Neut # (Auto) (1.4-6.5) K/uL Lymph # (Auto) (1.2-3.4) K/uL Blanco # (Auto) (0.24-0.82) K/uL Eos # (Auto) (0-0.50) K/uL Baso # (Auto) (0-0.2) K/uL Immature Gran # (Auto) (0.00-0.02) K/uL PT (9.0-12.0) Seconds INR (0.9-1.1) APTT (21.0-31.0) Seconds PTT Ratio Sodium (136-145) mmol/L Potassium (3.5-5.1) mmol/L Chloride (98-107) mmol/L Carbon Dioxide (21-32) mmol/L Anion Gap (3-11) BUN (6-23) mg/dl Creatinine (0.6-1.4) mg/dl Est Cr Clr Drug Dosing Est GFR ( Amer) ml/min Est GFR (Non-Af Amer) ml/min BUN/Creatinine Ratio (10-20) Glucose (70-99(Fasting)) mg/dl Calcium (8.5-10.1) mg/dl Magnesium (1.7-2.4) mg/dl Total Bilirubin (0.2-1.0) mg/dl Direct Bilirubin (0-0.2) mg/dl AST (13-39) U/L ALT (7-52) U/L Alkaline Phosphatase (34-104) U/L Troponin I High Sens (0-20) pg/ml Total Protein (6.0-8.3) gm/dl Albumin (3.4-5.0) gm/dl Lipase (11-82) U/L SARS-CoV-2, RNA, NAAT POSITIVE A* (NEGATIVE) Imaging Data Attestation: I personally reviewed and interpreted this imaging study as follows: My Impression: Chest x-ray negative. Airway clear. No pneumothorax. No consolidation. No cardiomegaly or cephalization.. No free air under the diaphragm. No fracture of the pacemaker wires. No significant change from the EKG done on April 12, 2022. Radiologist's Impression: PreliminaryFindingsOnly See Final Report For Complete Findings CT HEAD: Some motion artifact. No obvious acute intracranial abnormality Mild volume loss and small vessel disease. Radiologist: Stephen Sr M.D. Study ready at 22:48 and initial results transmitted at 00:21 ECG Data Attestation: I personally reviewed and interpreted this ECG as follows: Additional Comments: EKG #1 at 2129: Ventricular tachycardia with a rate of 162. QRS [address] elevation or ST depression. EKG #2 at 2147 status post cardioversion with 100 J: Dual paced rhythm with rate of 63. MS 126 QRS 180 QTC 521. PVCs present MDM Narrative 2128: The patient was evaluated in room B10. A complete history and physical exam was performed Cardiac monitoring: An order was placed for continuous cardiac monitoring. The monitor shows a rate of 160 with ventricular tachycardia rhythm Patient was found to be in ventricular tachycardia. Patient was moved to resuscitation bay. He will be given 250 cc normal saline bolus. Pads were applied to the patient. External medical records were reviewed. Patient was seen in the emergency department April 09, 2022. At that time the patient was having generalized weakness and EMS thought that he was and an unstable ventricular tachycardia. EMS crew treated him with 50 mg of amiodarone but that did not break his rhythm then he was cardioverted in the field with 100 J to an atrial fibrillar patient rate. Patient was admitted to the hospital at that time. Patient had a pacemaker defibrillator placed Dr. Argueta on April 11. The patient had a cardiac catheterization which was negative. Patient was discharged on prescription amiodarone and metoprolol. 2140: Patient's blood pressure stable. Discussed case with Dr. Argueta he states we can try to give the patient a 150 mg amiodarone bolus however he is not out of the ventricular tachycardia you need to cardiovert him. Dr. Argueta states he thinks that the limits on the defibrillator or set just above the patient's current ventricular rate. 2145: Amiodarone bolus going in patient becoming more hypotensive. Patient had synchronized cardioversion performed with with 100 J which cardioverted him into a paced rhythm. Patient was treated with Ativan prior to cardioversion. Patient's blood pressure improved to 138/40 after this. Patient became hypoxic after receiving Ativan. 2151: Spoke with Dr. Argueta again. He agrees with starting the patient on amiodarone drip at this time. Patient was supposed to start Xarelto tomorrow Dr. Argueta states not to start Xarelto at this time and no heparin at this time. Labs and imaging are pending. 0034: Vital signs stable on supplemental oxygen via nasal cannula. Patient alert and oriented x3. CT of the head within normal limits. COVID positive. Troponin elevated 157.6. Patient admitted to Dr. Petersen team [facility] hospitalist. Impression & Plan Ventricular tachycardia, Elevated troponin Discharge Plan Visit Data Chief Complaint: Syncope ED Provider: Roni Braswell Discharge Problem: Ventricular tachycardia, Elevated troponin Patient Disposition: Admitted As Inpatient Forms Stand Alone Forms: My [facility] Prescriptions Prescriptions: No Action bupropion HCl 150 mg tablet sustained-release 12 hr 150 mg PO BID Qty: 180 2RF lisinopril 20 mg tablet 20 mg PO BID Qty: 180 1RF pantoprazole [Protonix] 40 mg tablet,delayed release (DR/EC) 40 mg PO QAM Qty: 90 3RF atorvastatin 80 mg tablet 80 mg PO HS Qty: 90 3RF amiodarone 200 mg Tablet 400 mg PO QAM Qty: 30 0RF metoprolol succinate 25 mg Tablet Extended Release 24 Hr 25 mg PO QAM Qty: 30 0RF Xarelto 15 mg tablet 15 mg PO PM Qty: 30 0RF Rx Instructions: must administer with evening meal aspirin 81 mg Tablet,Delayed Release (Dr/Ec) 81 mg PO QAM folic acid 400 mcg Tablet 0.4 mg PO QAM amoxicillin 500 mg tablet 2,000 mg PO DIRECTED PRN (Reason: Prophylaxis) Rx Instructions: take 1 hour before dental appointment hydrochlorothiazide 25 mg tablet 25 mg PO QAM fluocinonide 0.05 % Cream 1 applic TOPICAL BID PRN (Reason: .rash) Referrals Referrals: Juan Manuel Early III, CRNP [Primary Care Provider] -
[2022-04-13 23:02] LABS: Troponin I High Sensitivity 157.6 pg/ml (0-20)
--- NOTE | 2022-04-14 | History & Physical Report ---
Date of Service April 13, 2022 Assessment & Plan (1) Ventricular tachyarrhythmia: Plan: Symptomatic ventricular tachycardia as patient presented for syncope and was tachycardic to 162bpm on presentation - initially without paced rhythm on EKG but after synchronized cardioversion reverted to paced/rate-controlled rhythm although with frequent PVCs. He is s/p PPM/ICD placed several days ago. - admit to PCU - continue Amiodarone gtt - hold Heparin/anti-coagulation per Cardiology recommendations - consulted Cardiology - appreciate recs - NPO pending Cardiology evaluation (2) Atrial fibrillation: Plan: New diagnosis last hospitalization although suspected to be present for several months, and may have exacerbated due to recent COVID-19 which may have led to first bout of v-tach several days ago. - continue Amiodarone gtt, and hold anti-coagulation as stated above - continue Metoprolol succinate 25mg PO QAM (3) Elevated troponin: Plan: hsTroponin 157.6 which is downtrending from previous on 04/09. Patient was not complaining of chest pain, and although initial EKG showed some ST changes this was in context of rapid v-tach, and repeat EKG showed these had resolved --> suspect demand ischemia due to v-tach. - check hsTroponin again now and Q6H to peak - PRN EKG for chest pain (4) COVID-19: Plan: Currently day 12 of symptoms, but first diagnosed on 04/09 (here). Patient is requiring 2L nasal cannula to maintain sats >90%, and did not have previous O2 requirement before COVID-19. Suspect resolving infection as there are no other symptoms. - maintain COVID-19 isolation precautions - no steroids/Remdesivir - trend clinically (5) Hypertension: Plan: Continue home HCTZ, Lisinopril, and Metoprolol (6) Coronary artery disease: Plan: With recent cardiac catheterization showing non-obstructive CAD. Continue daily baby ASA and statin. (7) Acid reflux disease: Plan: Continue home Protonix (8) Depression: Plan: Continue home Wellbutrin (9) Right ischial pressure sore, stage 1: Plan: Wound care while inpatient Plan FEN/GI: NPO DVT Prophylaxis: SCDs, no chemoppx for now, in case of procedure Code Status: full code Disposition: PCU History of Present Illness Chief Complaint: syncope Primary Care Provider: Juan Manuel Early, III, LIZ Kermit Rogers is an 81yo male with PMHx significant for non-obstructive CAD (last TTE in 10/2021 with EF 50-55%, RVSP 50-55), aortic stenosis (s/p bioprosthetic AVR at [facility] in 2010), h/o LBBB, pulmonary hypertension, right ischial pressure sore (stage I), HTN, HLD, hyperthyroidism and prediabetes, who presented to [facility] ED on 04/14/2022 after syncopal episode. Patient had reported dizziness/lightheadedness as well as some decreased PO intake, without chest pain, palpitations or shortness of breath. Patient was hospitalized here from 04/09 to 04/12 for hemodynamically unstable ventricular tachycardia that required synchronized cardioversion and Amiodarone gtt x36 hours which was transitioned to daily oral Amiodarone on discharge. Also had cardiac catheterization showing non-obstructive CAD, and had PPM/ICD placed as well. Patient had persistent a-fib since cardioversion (CHADS-VASc 4 - age/HTN/vascular dx) and was on Heparin gtt that was discontinued on discharge, with plans to start Xarelto on 04/14 (3 days after ICD placement). Lastly patient had COVID-19 with respiratory symptoms x1 week, decreased PO intake and hypoxia, thought to be impetus for cardiac issues. He was treated with steroids and pulmonary toilet during hospitalization. In the ED the patient was satting 90% on room air and required 2L supplemental O2 to maintain sats above 90%. Initial EKG showed wide-complex tachycardia 162bpm and ST-depressions in septal leads. Repeat EKG after patient had synchronized cardioversion with 100J showed AV dual-paced rhythm with biventricular pacer and with PVCs. hsTroponin 157.6 (down from 716.5 on 04/10). COVID-19 remains positive (also positive on 04/09) - patient is now on day 12 of symptoms. Otherwise labs significant for Hgb 11.6 (at baseline). Cr 1.54 (baseline 1.3 - 1.5), BUN 57 (up from 46 on 04/12). Otherwise CBC/CMP/Mg/INR/PT/PTT WNL. CXR (my interpretation) with cardiomegaly (chronic) and mild left pleural effusion. CT head without acute abnormalities. In the ED the patient was given synchronized cardioversion as stated above, Amiodarone bolus + gtt, as well as Ativan 1mg IV. On my examination, which was after Ativan administration, the history was limited as patient was sleeping and arousable but desired to keep sleeping without being interrupted. Allergies Allergy/AdvReac Type Severity Reaction Status Date / Time No Known Allergies Allergy Verified 04/13/22 21:53 Home Medications Medication Instructions Recorded Confirmed Type bupropion HCl 150 mg tablet,12 hr 150 mg PO BID #180 ea 10/29/21 04/13/22 Rx sustained-release lisinopril 20 mg tablet 20 mg PO BID #180 tabs 10/29/21 04/13/22 Rx amoxicillin 500 mg tablet 2,000 mg PO DIRECTED PRN 11/07/21 04/13/22 History Prophylaxis aspirin 81 mg tablet,delayed 81 mg PO QAM 11/07/21 04/13/22 History release fluocinonide 0.05 % topical cream 1 applic topical BID PRN .rash 11/07/21 04/13/22 History folic acid 400 mcg tablet 0.4 mg PO QAM 11/07/21 04/13/22 History hydrochlorothiazide 25 mg tablet 25 mg PO QAM 11/07/21 04/13/22 History pantoprazole 40 mg tablet,delayed 40 mg PO QAM #90 tabs 11/19/21 04/13/22 Rx release (Protonix) atorvastatin 80 mg tablet 80 mg PO HS #90 tabs 03/28/22 04/13/22 Rx amiodarone 200 mg tablet 400 mg PO QAM #30 tabs 04/12/22 04/13/22 Rx metoprolol succinate 25 mg 25 mg PO QAM #30 tabs 04/12/22 04/13/22 Rx tablet,extended release 24 hr rivaroxaban 15 mg tablet (Xarelto) 15 mg PO PM #30 tabs 04/12/22 04/13/22 Rx Past Med/Surg History Medical History (Updated 04/14/22 @ 00:28 by Vinod Boston MD) Acute pancreatitis Cervical radiculopathy COVID-19 Difficulty reading due to visual problem Encounter for pre-operative examination Former smoker History of snuff use Hyperhomocystinemia Hypertension Hyperthyroidism Left bundle branch block New onset atrial fibrillation Prediabetes Presence of combination internal cardiac defibrillator (ICD) and pacemaker 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, 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, clinical stage TIc Status post biopsies, biopsy stage TIIa Divine grade 3+3 Status post seed implant with cesium 131 as boost 12/08/2006 Status post completion of IMRT/IGRT 02/26/2007" Prostate cancer Pure hypercholesterolemia PVC (premature ventricular contraction) Ventricular tachycardia Surgical History H/O aortic valve repair H/O hernia repair History of laparoscopic cholecystectomy (11/08/21) lap ish/ercp Nov 01 Chambers Status post aortic valve replacement with bioprosthetic valve Family History Mother Heart disease Brother Cancer Lung cancer Unknown Prostate cancer Father Prostate cancer Denies family history of Colon cancer Ovarian cancer Myocardial infarction Breast cancer Social History Smoking Status: Former smoker Tobacco Type: Cigarettes and Smokeless Tobacco (Dip or Chew) Age Started Using Tobacco: 8; Age Quit Using Tobacco: 75; packs per day: 2.5; Second Hand Exposure: No; Hx Alcohol Use: No Hx Substance Use: No Preferred Language: R[place] Communication Ability: Effective Visual Impairment: No Limitations Hearing Ability: Use of Hearing Aid Redevelopment Manager Required: No Beliefs That Will Affect Care: None marital status: / Current Living Situation: Alone current occupational status: retired How many Children do You have: 2 Feels Safe at Home: Yes Childhood Exposure to Second-Hand Smoke: Yes Diet Comment: regular Dental Care, Regularly: No Physical Activity Frequency: Does not Exercise Seatbelt Use: never Sunscreen Use: No Do you think of yourself as: straight/heterosexual Assistive Devices: Cane Review of Systems Review of Systems: All systems reviewed & are unremarkable except as noted in HPI & below Physical Exam Physical Exam: General: A&Ox3. NAD. Cooperative. HEENT: Atraumatic, normocephalic. Pulm: CTAB A&P. -wheezes, -rales, -rhonchi. Symmetrical chest rise. No increase work of breathing. No respiratory distress. Cardiac: RRR, -mrg. Radial pulses intact and symmetrical. No LE edema. Abdominal: soft, non-tender, non-distended, BS x 4 Skin: left radial artery site with dressing c/d/i intact and without palpable thrill Results & Data Results & Data ([facility]) Vital Signs (Past 12 Hours) Vital Signs Temp Pulse Pulse Resp BP BP Pulse Ox 04/13/22 23:30 62 15 135/81 100 04/13/22 23:16 64 13 109/81 100 04/13/22 23:15 61 15 98 04/13/22 23:00 60 15 133/82 100 04/13/22 23:00 133/82 04/13/22 22:45 62 13 122/81 99 04/13/22 22:39 63 14 134/90 100 04/13/22 22:05 60 13 121/82 99 04/13/22 22:00 60 23 134/84 97 04/13/22 22:05 36.5 C 04/13/22 21:55 61 13 119/85 98 04/13/22 21:50 90 04/13/22 21:50 98 04/13/22 21:50 137/84 04/13/22 21:49 74 16 138/83 90 04/13/22 21:45 155 H 21 87/64 L 92 04/13/22 21:44 157 H 18 81/69 L 95 04/13/22 21:42 162 H 25 H 87/72 L 91 04/13/22 21:40 164 H 21 95 04/13/22 21:36 166 H 19 94/78 L 93 04/13/22 21:31 165 H 22 93/72 L 04/13/22 21:35 167 H 22 106/70 95 O2 Del Method O2 Flow Rate 04/13/22 23:30 Nasal Cannula 2 04/13/22 23:16 Nasal Cannula 2 04/13/22 23:15 Nasal Cannula 2 04/13/22 23:00 Nasal Cannula 2 04/13/22 23:00 04/13/22 22:45 Nasal Cannula 2 04/13/22 22:39 Nasal Cannula 2 04/13/22 22:05 Nasal Cannula 2 04/13/22 22:00 Nasal Cannula 2 04/13/22 22:05 04/13/22 21:55 Nasal Cannula 2 04/13/22 21:50 Room Air, Nasal Cannula 0 04/13/22 21:50 Nasal Cannula 2 04/13/22 21:50 04/13/22 21:49 Room Air 04/13/22 21:45 Room Air 04/13/22 21:44 Room Air 04/13/22 21:42 Room Air 04/13/22 21:40 Room Air 04/13/22 21:36 Room Air 04/13/22 21:31 Room Air 04/13/22 21:35 Room Air Supervising Physician Co-Signing Physician Notes Patient seen and examined, chart reviewed, case discussed with Dr. Boston and I agree with the assessment and plan as above. In brief, danny tis an 81yo male with histoyr of CAD, and PH who presents with syncope. Recent hospitalization for VT s/p cardioversion, Amiodoarone and placement of ICD. Found to have VT today s/p cardioversion and amiodarone On exam he is resting comfortably, NAD Paced rhythm present on monitor HEENT - mmm, neck supple Heart - +S1/S2, regular, bruising on anterior chest from recent pacer placement Lungs - CTA Abd - +BS, soft, NT/ND Ext - +edema Labs and images reviewed Assessment/Plan - VT s/p cardioversion, s/p Amio now in paced rhythm -Admit to PCU -Continue Amio -Cardiology consultation appreciated -Remainder as above Resident Activity Tracking Resident Involvement: Resident Care Provided Care Provided: Adult [facility] Medicine (1) Coronary artery disease Associated angina: without angina Coronary Disease-Associated Artery/Lesion type: [place] artery [place] vs. transplanted heart: [place] heart Qualified Code(s): I25.10 - Atherosclerotic heart disease of [place] coronary artery without angina pectoris (2) Depression Active/Remission status: currently active Depression Type: major depressive disorder Major depression episode severity: mild Major depression recurrence: single episode Qualified Code(s): F32.0 - Major depressive disorder, single episode, mild (3) Acid reflux disease Esophagitis presence: without esophagitis Qualified Code(s): K21.9 - Gastro- esophageal reflux disease without esophagitis (4) Hypertension Hypertension type: essential hypertension Qualified Code(s): I10 - Essential (primary) hypertension
--- NOTE | 2022-04-14 01:36 | Billing Data ---
Date of Service April 13, 2022 Coding Level of Care Code 03605 Initial Inpt Care Lvl 3
[2022-04-14] MEDS: AMIODARONE / D5W 360 MG/200 ML BAG IV SCH ×2 (03:42→14:35)
[2022-04-14 06:24] LABS: Hematocrit (blood only) 32.6 % (40.1-51.0); Hemoglobin 10.9 g/dl (14.0-18.0); Mean Corpuscular Hemoglobin 29.9 pg (25.0-34.0); Mean Corpuscular Hgb Conc 33.4 g/dL (32.0-36.0); Mean Corpuscular Volume 89.6 fL (80.0-100.0); Mean Platelet Volume 11.7 fL (9.4-12.4); Platelet Count 130 K/uL (130-400); RDW Coefficient of Variation 14.6 % (11.5-14.5); RDW Standard Deviation 48.4 fL (36.4-46.3); Red Blood Count 3.64 M/uL (4.63-6.08); White Blood Count 8.33 K/ul (4.8-10.8)
[2022-04-14 06:26] LABS: Anion Gap 5 (3-11); Blood Urea Nitrogen 55 mg/dl (6-23); Calcium 7.8 mg/dl (8.5-10.1); Carbon Dioxide 26 mmol/L (21-32); Chloride 107 mmol/L (98-107); Est GFR (African American) 56.4 ml/min; Est GFR (Non-African American) 48.6 ml/min; Glucose 109 mg/dl (70-99(Fasting)); Magnesium 2.1 mg/dl (1.7-2.4); Potassium 4.1 mmol/L (3.5-5.1); Sodium 138 mmol/L (136-145)
[2022-04-14 06:36] LABS: Troponin I High Sensitivity 142.9 pg/ml (0-20)
--- NOTE | 2022-04-14 06:43 | XRay Report ---
XR chest 1V portable HISTORY: 81 years-old Male Chest pain, nonspecific acute chest pain COMPARISON: 04/12/2022 TECHNIQUE: AP view of the chest FINDINGS: Cardiac silhouette is enlarged. Prior median sternotomy with cardiac valvular prosthesis. Left subcla vian pacer/AICD. Unchanged moderate hemidiaphragmatic elevation. No pneumothorax or large pleural eff usion. Pulmonary vascular congestion with mild subsegmental bibasilar atelectasis. Degenerative oropeza es of the shoulders and spine. IMPRESSION: 1. Cardiomegaly with suggestion of mild pulmonary vascular congestion. 2. No pneumothorax. ACT 112: Negative or not required by law. The above report was generated using voice recognition software. It may contain grammatical, syntax o r spelling errors. Electronically signed by: Quinton Wilde M.D. 04/14/2022 6:42 AM
[2022-04-14 06:44] LABS: Basophils # (auto) 0.01 K/uL (0-0.2); Basophils % (auto) 0.1 %; Eosinophils # (auto) 0.07 K/uL (0-0.50); Eosinophils % (auto) 0.8 %; Immature Granulocytes # (auto) 0.05 K/uL (0.00-0.02); Immature Granulocytes % (auto) 0.6 %; Lymphocytes # (auto) 1.37 K/uL (1.2-3.4); Lymphocytes % (auto) 16.4 %; Monocytes # (auto) 0.95 K/uL (0.24-0.82); Monocytes % (auto) 11.4 %; Neutrophils # (auto) 5.88 K/uL (1.4-6.5); Neutrophils % (auto) 70.7 %
[2022-04-14] MEDS: FOLIC ACID 400 MCG TAB PO SCH (07:44)
[2022-04-14] MEDS: ASPIRIN 81 MG ECTAB PO SCH (07:44)
[2022-04-14] MEDS: hydroCHLOROthiazide 25 MG TAB PO SCH (07:44)
[2022-04-14] MEDS: lisinopril 20 MG TAB PO SCH ×2 (07:45→20:11)
[2022-04-14] MEDS: buPROPion SR 150 MG TABCR PO SCH ×2 (07:45→20:11)
[2022-04-14] MEDS: PANTOprazole 40 MG TAB PO SCH (07:45)
--- NOTE | 2022-04-14 08:40 | CT Scan Report ---
CT OF THE HEAD WITHOUT CONTRAST CLINICAL HISTORY: Syncope. COMPARISON STUDY: Head CT September 27, 2019. CT DOSE: 691.05 mGy.cm TECHNIQUE: Helical axial images of the head were obtained without IV contrast. Automated exposure con trol was utilized for the study. A dose lowering technique was utilized adhering to the principles o f ALARA. FINDINGS: No acute intracranial hemorrhage, midline shift or mass effect is present. The ventricular system is unremarkable. The basal cisterns are patent. No extra-axial collections are present. There are no findings to suggest acute dural sinus thrombosis or acute territorial infarct. No significant calvarial abnormalities are present. There is mild ethmoid sinus mucosal thickening. IMPRESSION: No acute intracranial findings. ACT 112: Negative or not required by law. Electronically signed by: Migel Dalton M.D. 04/14/2022 8:38 AM
[2022-04-14] MEDS ORDERED: METOPROLOL SUCC 25MG EXT REL TAB PO SCH (09:00)
--- NOTE | 2022-04-14 13:39 | Communication Note ---
Date of Service: April 14, 2022 Please see full assessment and plan except as otherwise stated here: Continue amiodarone Awaiting Cardiology consult
--- NOTE | 2022-04-14 17:46 | Hospitalist Progress Note ---
Date of Service April 14, 2022 Assessment & Plan (1) Ventricular tachyarrhythmia: Plan: 81 yo M with recent ICD placement presented for syncope and ventricular arrhythmia. Ventricular tachyarrhythmia: Presented with syncope, found to have HR 160s VTach. S/p synchronized cardioversion in ER. Now in paced rate controlled rhythm. Cardiology consulted and case discussed with Dr. Argueta, appreciate recommendations: Continue amiodarone gtt through tonight and will increase his dose for discharge. Continue metoprolol succinate 50mg daily and start Xarelto. Will discuss with Case Management if this medication is cost-prohibitive. Device parameters adjusted on pacer. Telemetry for cardiac monitoring. (2) Atrial fibrillation: Plan: Diagnosed last hospitalization. Continue amiodarone gtt. Xarelto and metoprolol as above. (3) Elevated troponin: Plan: 150s -> 120, downtrending from up to 700 on admission 04/09. No chest pain, no ST changes after cardioversion. Suspect demand ischemia due to ventricular dysrhythmia. (4) COVID-19: Plan: Diagnosed 04/09, on day 12 of symptoms. Was on 2LNC on admission in the setting of recent VTach, but now on room air saturating well. Supportive care. (5) Hypertension: Plan: Continue home HCTZ, Lisinopril, and Metoprolol. BP 140s systolic. (6) Coronary artery disease: Plan: With recent cardiac catheterization showing non-obstructive CAD. Continue daily baby ASA and statin. (7) Acid reflux disease: Plan: Continue home Protonix. (8) Depression: Plan: Continue home Wellbutrin. (9) Right ischial pressure sore, stage 1: Plan: Wound care while inpatient. Plan Code Status: full code FEN/GI: heart healthy DVT Prophylaxis: SCDs, Xarelto Disposition: PCU Admission and Anticipated Discharge Date Admission Date: April 14, 2022 Subjective No acute events overnight. Denies chest pain, palpitations, SOB. No episodes of VTach since admission. Review of Systems Review of Systems: All systems reviewed & are unremarkable except as noted in Subjective Physical Exam Constitutional: WD/WN, vitals as above Respiratory: normal respiratory effort, lungs clear to auscultation Cardiovascular: RRR, no murmur, no edema Gastrointestinal (Abdomen): normal bowel sounds, soft, nontender, no hepatosplenomegaly Skin: no rashes, warm and dry Psychiatric: A+Ox3, euthymic affect Results & Data Results & [facility] ([facility]) Vital Signs (Past 12 Hours) Vital Signs Temp Pulse Pulse Resp BP BP Pulse Ox 04/14/22 16:38 36.6 C 77 20 140/99 95 04/14/22 15:12 62 04/14/22 13:17 77 04/14/22 12:37 36.6 C 60 20 140/86 97 04/14/22 12:27 04/14/22 10:39 63 16 110/70 96 04/14/22 07:52 36.8 C 64 16 144/78 H 97 04/14/22 07:47 62 16 144/91 H 95 04/14/22 06:15 60 16 100 04/14/22 06:00 61 14 100 04/14/22 06:00 148/90 H O2 Del Method 04/14/22 16:38 Room Air 04/14/22 15:12 04/14/22 13:17 04/14/22 12:37 Room Air 04/14/22 12:27 Room Air 04/14/22 10:39 Room Air 04/14/22 07:52 Room Air 04/14/22 07:47 Room Air 04/14/22 06:15 04/14/22 06:00 04/14/22 06:00 PG Care Time/CCT Total # of Minutes Spent Total Time Spent with Patient: Total time spent with this patient's care, on this day of evaluation, including chart review, documentation, orders and communicating plan with care team/consultants/patient: 50 minutes Coding Level of Care Code 85764 Subseq Hosp Care Lvl 3 Diagnoses Ventricular tachyarrhythmia I47.20 Atrial fibrillation I48.91 Elevated troponin R77.8 COVID-19 U07.1 Hypertension I10 Hypertension type: essential hypertension Coronary artery disease I25.10 Associated angina: without angina Coronary Disease-Associated Artery/Lesion type: [place] artery [place] vs. transplanted heart: [place] heart Acid reflux disease K21.9 Esophagitis presence: without esophagitis Depression F32.0 Active/Remission status: currently active Depression Type: major depressive disorder Major depression episode severity: mild Major depression recurrence: single episode Right ischial pressure sore, stage 1 L89.311 (1) Coronary artery disease Associated angina: without angina Coronary Disease-Associated Artery/Lesion type: [place] artery [place] vs. transplanted heart: [place] heart Qualified Code(s): I25.10 - Atherosclerotic heart disease of [place] coronary artery without angina pectoris (2) Depression Active/Remission status: currently active Depression Type: major depressive disorder Major depression episode severity: mild Major depression recurrence: single episode Qualified Code(s): F32.0 - Major depressive disorder, single episode, mild (3) Acid reflux disease Esophagitis presence: without esophagitis Qualified Code(s): K21.9 - Gastro- esophageal reflux disease without esophagitis (4) Hypertension Hypertension type: essential hypertension Qualified Code(s): I10 - Essential (primary) hypertension
--- NOTE | 2022-04-14 18:56 | Electrocardiogram Report ---
Test Reason : Blood Pressure : / mmHG Vent. Rate : 063 BPM Atrial Rate : 258 BPM P-R Int : 126 ms QRS Dur : 180 ms QT Int : 510 ms P-R-T Axes : 000 -86 116 degrees QTc Int : 521 ms Poor data quality, interpretation may be adversely affected AV dual-paced rhythm with occasional Premature ventricular complexes Biventricular pacemaker detected Abnormal ECG Confirmed by Eugenio Argueta ([id number]) on 04/14/2022 6:55:57 PM Referred By: REFERRED SELF Confirmed By:Scott Argueta
--- NOTE | 2022-04-14 18:57 | Electrocardiogram Report ---
Test Reason : Blood Pressure : / mmHG Vent. Rate : 162 BPM Atrial Rate : 079 BPM P-R Int : 000 ms QRS Dur : 124 ms QT Int : 346 ms P-R-T Axes : 000 -38 177 degrees QTc Int : 568 ms Poor data quality, interpretation may be adversely affected Ventricular tachycardia Abnormal ECG When compared with ECG of 09-APR-2022 23:59, Wide QRS tachycardia has replaced Atrial fibrillation Vent. rate has increased BY 120 BPM Confirmed by Eugenio Argueta ([id number]) on 04/14/2022 6:57:15 PM Referred By: REFERRED SELF Confirmed By:Scott Argueta
--- NOTE | 2022-04-14 19:10 | Electrocardiogram Report ---
Test Reason : Blood Pressure : / mmHG Vent. Rate : 075 BPM Atrial Rate : 092 BPM P-R Int : 126 ms QRS Dur : 182 ms QT Int : 492 ms P-R-T Axes : 000 -61 107 degrees QTc Int : 549 ms AV dual-paced rhythm with frequent ventricular-paced complexes Biventricular pacemaker detected Abnormal ECG When compared with ECG of 13-APR-2022 21:48, (unconfirmed) Premature ventricular complexes are no longer Present Vent. rate has increased BY 12 BPM Confirmed by Eugenio Argueta ([id number]) on 04/14/2022 7:10:20 PM Referred By: REFERRED SELF Confirmed By:Scott Argueta
--- NOTE | 2022-04-14 19:26 | Cardiology Consultation ---
Date of Consultation April 14, 2022 Assessment & Plan (1) Ventricular tachyarrhythmia: (2) Atrial fibrillation: (3) Presence of combination internal cardiac defibrillator (ICD) and pacemaker: (4) Elevated troponin: (5) Coronary artery disease: Plan 1. Ventricular tachycardia: This is the patient's 2nd episode of ventricular tachycardia in a few days. Unclear etiology is not appear to have significant wall motion abnormalities or evidence of significant infarct. The plan during his last admission was a perfusion study in order to eliminate ischemia and scar. However, this cannot be performed as he is COVID positive and in isolation. He was sent home on amiodarone and beta-blockade. Is certainly concerning that he had recurrent ventricular tachycardia in that setting. We will increase the medical therapy. I will refer him for a discussion of VT ablation as well. 2. 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 As noted above our plan at some point will be to perform perfusion imaging. No current symptoms suggestive of ischemia. 3. Elevated troponin: Actually much lower than prior. I suspect this is due to shorter episodes of ventricular tachycardia. Again, no symptoms consistent with an acute coronary syndrome or coronary insufficiency. 4. Atrial fibrillation: Patient presented with atrial fibrillation at the time of his last admission. This was documented as early as October of last year. He has not been placed on systemic anticoagulation due to his recent implant but was scheduled to start Xarelto today. I will start the Xarelto. He was cardio verted for his VT and subsequently atrial fibrillation last evening. History of Present Illness Reason for Consultation: Ventricular tachycardia Requesting Physician: Ludy Attending Physician: Sarina Funes DO History of Present Illness The patient is an 81-year-old gentleman recently discharged from hospital after an episode of ventricular tachycardia. During that hospitalization he underwent coronary angiography as well as implantation of a biventricular ICD. Patient states that he was at home feeling well until he bent over to straighten out a pad for his dog. When he got up he felt acutely dizzy and believes he lost consciousness briefly. A friend was over and based on his appearance recommended transport to the hospital. An ambulance was called and he was brought to the emergency room. In the emergency room he was also discovered to have ventricular tachycardia. No therapy was delivered by his device and he underwent external cardioversion. The patient states that after returning home 2 days ago he actually is feeling quite well. He denies any discomfort at his device implant site. He is performing his usual duties without new limitation. He does have an element of dyspnea at times. He did not report dizziness, lightheadedness or sense of palpitation. He appears to have been compliant with his medications. Currently feeling well. He denies breathing difficulty. No discomfort at the device implant site or chest pain. Allergies Allergy/AdvReac Type Severity Reaction Status Date / Time No Known Allergies Allergy Verified 04/13/22 21:53 Home Medications Medication Instructions Recorded Confirmed Type bupropion HCl 150 mg tablet,12 hr 150 mg PO BID #180 ea 10/29/21 04/13/22 Rx sustained-release lisinopril 20 mg tablet 20 mg PO BID #180 tabs 10/29/21 04/13/22 Rx amoxicillin 500 mg tablet 2,000 mg PO DIRECTED PRN 11/07/21 04/13/22 History Prophylaxis aspirin 81 mg tablet,delayed 81 mg PO QAM 11/07/21 04/13/22 History release fluocinonide 0.05 % topical cream 1 applic topical BID PRN .rash 11/07/21 04/13/22 History folic acid 400 mcg tablet 0.4 mg PO QAM 11/07/21 04/13/22 History hydrochlorothiazide 25 mg tablet 25 mg PO QAM 11/07/21 04/13/22 History pantoprazole 40 mg tablet,delayed 40 mg PO QAM #90 tabs 11/19/21 04/13/22 Rx release (Protonix) atorvastatin 80 mg tablet 80 mg PO HS #90 tabs 03/28/22 04/13/22 Rx amiodarone 200 mg tablet 400 mg PO QAM #30 tabs 04/12/22 04/13/22 Rx metoprolol succinate 25 mg 25 mg PO QAM #30 tabs 04/12/22 04/13/22 Rx tablet,extended release 24 hr rivaroxaban 15 mg tablet (Xarelto) 15 mg PO PM #30 tabs 04/12/22 04/13/22 Rx Patient History Medical History (Updated 04/14/22 @ 00:28 by Vinod Boston MD) Acute pancreatitis Cervical radiculopathy COVID-19 Difficulty reading due to visual problem Encounter for pre-operative examination Former smoker History of snuff use Hyperhomocystinemia Hypertension Hyperthyroidism Left bundle branch block New onset atrial fibrillation Prediabetes Presence of combination internal cardiac defibrillator (ICD) and pacemaker 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, 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, clinical stage TIc Status post biopsies, biopsy stage TIIa Beggs grade 3+3 Status post seed implant with cesium 131 as boost 12/08/2006 Status post completion of IMRT/IGRT 02/26/2007" Prostate cancer Pure hypercholesterolemia PVC (premature ventricular contraction) Ventricular tachycardia Surgical History H/O aortic valve repair H/O hernia repair History of laparoscopic cholecystectomy (11/08/21) lap ish/ercp Nov 01 Chambers Status post aortic valve replacement with bioprosthetic valve Family History Mother Heart disease Brother Cancer Lung cancer Unknown Prostate cancer Father Prostate cancer Denies family history of Colon cancer Ovarian cancer Myocardial infarction Breast cancer Social History Smoking Status: Former smoker Tobacco Type: Cigarettes and Smokeless Tobacco (Dip or Chew) Age Started Using Tobacco: 8; Age Quit Using Tobacco: 75; packs per day: 2.5; Second Hand Exposure: No; Hx Alcohol Use: No Hx Substance Use: No Preferred Language: Congolese Communication Ability: Effective Visual Impairment: No Limitations Hearing Ability: Use of Hearing Aid [employer]iler [employer] Supervisor Required: No Beliefs That Will Affect Care: Spiritual marital status: / Current Living Situation: Alone current occupational status: retired How many Children do You have: 2 Feels Safe at Home: Yes Childhood Exposure to Second-Hand Smoke: Yes Diet Comment: regular Dental Care, Regularly: No Physical Activity Frequency: Does not Exercise Seatbelt Use: never Sunscreen Use: No Do you think of yourself as: straight/heterosexual Assistive Devices: Cane Review of Systems Review of Systems: Per HPI Physical Exam Physical Exam: The patient is alert and oriented. Mood and affect appeared normal. He answered all questions appropriately. HEENT: Pupils are equal and reactive to light and accommodation. Extraocular movements are intact. The sclerae are anicteric. Neuro: Cranial nerves intact Lungs: Clear to auscultation bilaterally. He has good air movement without use of accessory muscles. No rales wheezes or rhonchi. Cardiac: Heart demonstrates a regular rate and rhythm with occasional ectopy. Normal S1 and S2. No murmurs on examination. Chest: Ecchymosis surrounding the device implant site and the left axilla. No significant hematoma. Pulses: The patient has palpable radial pulses bilaterally that are equal in intensity Extremities: There was no evidence of hypoperfusion. Good perfusion of both hands. There is no cyanosis or clubbing. There is no edema. Skin: I did not appreciate any rashes on examination today. Results & Data ([facility]) Vital Signs (Past 12 Hours) Vital Signs Temp Pulse Pulse Resp BP Pulse Ox O2 Del Method 04/14/22 16:38 36.6 C 77 20 140/99 95 Room Air 04/14/22 15:12 62 04/14/22 13:17 77 04/14/22 12:37 36.6 C 60 20 140/86 97 Room Air 04/14/22 12:27 Room Air 04/14/22 10:39 63 16 110/70 96 Room Air 04/14/22 07:52 36.8 C 64 16 144/78 H 97 Room Air 04/14/22 07:47 62 16 144/91 H 95 Room Air Diagnostic Findings Patient underwent coronary angiography 04/11/2022. LAD and right coronary artery are normal without obstructive disease. 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 Echocardiogram performed 04/10/2022: Ejection fraction 50%. Mild LVH. Normally functioning bioprosthetic aortic valve. Mild mitral regurgitation and elevated pulmonary pressures. Device interrogation reveals 2 episodes of ventricular tachycardia. One lasting approximately 6 minutes and another lasting 18 minutes. These episodes fell outside the therapy zone. Patient also converted to sinus rhythm from atrial fibrillation. PG Care Time/CCT Total # of Minutes Spent Total Time Spent with Patient: Total time spent is greater than 50% in coordination of care (as documented) at patient's floor/unit and/or counseling patient: Coding Level of Care Code 91472 Initial Inpt Care Lvl 3 Diagnoses Ventricular tachyarrhythmia I47.20 Atrial fibrillation I48.91 Presence of combination internal cardiac defibrillator (ICD) and pacemaker Z95.810 Elevated troponin R77.8 Coronary artery disease I25.10 Coronary Disease-Associated Artery/Lesion type: [place] artery [place] vs. transplanted heart: [place] heart Associated angina: without angina (1) Coronary artery disease Coronary Disease-Associated Artery/Lesion type: [place] artery [place] vs. transplanted heart: [place] heart Associated angina: without angina Qualified Code(s): I25.10 - Atherosclerotic heart disease of [place] coronary artery without angina pectoris
[2022-04-14] MEDS ORDERED: METOPROLOL SUCC 25MG EXT REL TAB PO ONE (20:00)
[2022-04-14] MEDS: ATORVASTATIN 40 MG TAB PO SCH (20:10)
[2022-04-14] MEDS: RIVAROXABAN 20 MG TAB PO SCH (20:12)
[2022-04-15] MEDS: AMIODARONE / D5W 360 MG/200 ML BAG IV SCH ×3 (00:34→23:25)
[2022-04-15] MEDS: PANTOprazole 40 MG TAB PO SCH (08:09)
[2022-04-15] MEDS: hydroCHLOROthiazide 25 MG TAB PO SCH (08:09)
[2022-04-15] MEDS: METOPROLOL SUCC 50MG EXT REL TAB PO SCH (08:09)
[2022-04-15] MEDS: lisinopril 20 MG TAB PO SCH ×2 (08:09→20:43)
[2022-04-15] MEDS: buPROPion SR 150 MG TABCR PO SCH ×2 (08:10→20:43)
[2022-04-15] MEDS: ASPIRIN 81 MG ECTAB PO SCH (08:10)
[2022-04-15] MEDS: FOLIC ACID 400 MCG TAB PO SCH (08:10)
--- NOTE | 2022-04-15 13:36 | Hospitalist Progress Note ---
Date of Service April 15, 2022 Assessment & Plan (1) Ventricular tachyarrhythmia: Plan: Current management per cardiology. He is on intravenous amiodarone, Xarelto and metoprolol. Metoprolol dosage uptitrated today, April 15. Awaiting transfer to [facility] for a ablation therapy when bed is available. He presented this admission with syncope apparently due to ventricular arrhythmia. (2) Atrial fibrillation: Plan: Diagnosed last hospitalization. Continue amiodarone gtt. Xarelto and metoprolol as above. (3) Elevated troponin: Plan: 150s -> 120, downtrending from up to 700 on admission 04/09. No chest pain, no ST changes after cardioversion. Suspect demand ischemia due to ventricular dysrhythmia. (4) COVID-19: Plan: Diagnosed 04/09, on day 12 of symptoms. Was on 2LNC on admission in the setting of recent VTach, but now on room air sat urating well. Supportive care. (5) Hypertension: Plan: Continue home HCTZ, Lisinopril, and Metoprolol. Currently stable (6) Coronary artery disease: Plan: recent cardiac catheterization reveals non-obstructive CAD. Continue daily baby ASA and statin. (7) Acid reflux disease: Plan: Continue home Protonix. (8) Depression: Plan: Continue home Wellbutrin. (9) Right ischial pressure sore, stage 1: Plan: Wound care while inpatient. (10) Syncope: Plan: The patient presented this admission with syncope presumed to be due to ventricular dysrhythmia. Telemetry. Continue aggressive treatment of ventricular dysrhythmia Plan Code Status: full code FEN/GI: heart healthy DVT Prophylaxis: SCDs, Xarelto Disposition: Transfer to [facility] in [place] for ventricular ablation when bed is available Admission and Anticipated Discharge Date Admission Date: April 14, 2022 Subjective Alert and oriented. Pleasant. Stable. He remains on intravenous amiodarone drip along with oral metoprolol. Cardiology consultation and recommendations appreciated. Metoprolol was uptitrated today. Awaiting transfer to [facility] when a bed is available for a ablation treatment. Review of Systems Review of Systems: Constitutional-no fever or chills ENT-no blurred vision, no double vision, no epistaxis, no sore throat Respiratory-no cough, no wheezing, no shortness of breath Cardiac-no palpitations, no chest pain, no syncope GI-no nausea, vomiting, diarrhea, melena, hematochezia -no urinary retention, no urinary incontinence, no dysuria, no hematuria Musculoskeletal-no joint pain, no muscle tenderness Skin-no bruising, no rashes, no pruritus Neuro-no isolated weakness, no paresthesia, no weakness Psych-no depression, no anxiety Physical Exam Physical Exam: General-alert and oriented x3, no fevers, no chills HEENT-head atraumatic and normocephalic, pupils equal and reactive to light, extraocular muscles intact Neck-no lymphadenopathy or thyromegaly, trachea midline Chest-clear to auscultation percussion. No rales wheezing or rhonchi Cardiac-regular rate and rhythm, normal S1 and S2 Abdomen-normal bowel sounds, nontender, no hepatosplenomegaly Extremities-no cyanosis, clubbing, or edema Neuro-cranial nerves II through XII intact, motor and sensory function within normal limits, strength symmetrical , no focal deficits Psych-normal affect, normal mood Results & Data Results & Data ([facility]) Vital Signs (Past 12 Hours) Vital Signs Temp Pulse Pulse Resp BP Pulse Ox O2 Del Method 04/15/22 11:49 36.9 C 74 18 146/98 H 96 Room Air 04/15/22 09:45 76 04/15/22 08:02 36.8 C 75 18 166/101 H 94 Room Air 04/15/22 03:18 36.7 C 75 18 136/98 94 Room Air Laboratory Results 04/14/22 05:37 04/14/22 05:37 PG Care Time/CCT Total # of Minutes Spent Total Time Spent with Patient: Total time spent is greater than 50% in coordination of care (as documented) at patient's floor/unit and/or counseling patient: Coding Level of Care Code 03429 Subseq Hosp Care Lvl 3 Diagnoses Ventricular tachyarrhythmia I47.20 Atrial fibrillation I48.91 Elevated troponin R77.8 COVID-19 U07.1 Hypertension I10 Hypertension type: essential hypertension Coronary artery disease I25.10 Coronary Disease-Associated Artery/Lesion type: [place] artery [place] vs. transplanted heart: [place] heart Associated angina: without angina Acid reflux disease K21.9 Esophagitis presence: without esophagitis Depression F32.0 Depression Type: major depressive disorder Major depression recurrence: single episode Active/Remission status: currently active Major depression episode severity: mild Right ischial pressure sore, stage 1 L89.311 Syncope R55 (1) Hypertension Hypertension type: essential hypertension Qualified Code(s): I10 - Essential (primary) hypertension (2) Coronary artery disease Coronary Disease-Associated Artery/Lesion type: [place] artery [place] vs. transplanted heart: [place] heart Associated angina: without angina Qualified Code(s): I25.10 - Atherosclerotic heart disease of [place] coronary artery without angina pectoris (3) Acid reflux disease Esophagitis presence: without esophagitis Qualified Code(s): K21.9 - Gastro- esophageal reflux disease without esophagitis (4) Depression Depression Type: major depressive disorder Major depression recurrence: single episode Active/Remission status: currently active Major depression episode severity: mild Qualified Code(s): F32.0 - Major depressive disorder, single episode, mild
--- NOTE | 2022-04-15 13:40 | Discharge Summary ---
Date of Service April 15, 2022 Admission HPI Per Admitting Provider Kermit Rogers is an 81yo male with PMHx significant for non-obstructive CAD (last TTE in 10/2021 with EF 50-55%, RVSP 50-55), aortic stenosis (s/p bioprosthetic AVR at [facility] in 2010), h/o LBBB, pulmonary hypertension, right ischial pressure sore (stage I), HTN, HLD, hyperthyroidism and prediabetes, who presented to [facility] ED on 04/14/2022 after syncopal episode. Patient had reported dizziness/lightheadedness as well as some decreased PO intake, without chest pain, palpitations or shortness of breath. Patient was hospitalized here from 04/09 to 04/12 for hemodynamically unstable ventricular tachycardia that required synchronized cardioversion and Amiodarone gtt x36 hours which was transitioned to daily oral Amiodarone on discharge. Also had cardiac catheterization showing non-obstructive CAD, and had PPM/ICD placed as well. Patient had persistent a-fib since cardioversion (CHADS-VASc 4 - age/HTN/vascular dx) and was on Heparin gtt that was discontinued on discharge, with plans to start Xarelto on 04/14 (3 days after ICD placement). Lastly patient had COVID-19 with respiratory symptoms x1 week, decreased PO intake and hypoxia, thought to be impetus for cardiac issues. He was treated with steroids and pulmonary toilet during hospitalization. In the ED the patient was satting 90% on room air and required 2L supplemental O2 to maintain sats above 90%. Initial EKG showed wide-complex tachycardia [address]-depressions in septal leads. Repeat EKG after patient had synchronized cardioversion with 100J showed AV dual-paced rhythm with biventricular pacer and with PVCs. hsTroponin 157.6 (down from 716.5 on 04/10). COVID-19 remains positive (also positive on 04/09) - patient is now on day 12 of symptoms. Otherwise labs significant for Hgb 11.6 (at baseline). Cr 1.54 (baseline 1.3 - 1.5), BUN 57 (up from 46 on 04/12). Otherwise CBC/CMP/Mg/INR/PT/PTT WNL. CXR (my interpretation) with cardiomegaly (chronic) and mild left pleural effusion. CT head without acute abnormalities. In the ED the patient was given synchronized cardioversion as stated above, Amiodarone bolus + gtt, as well as Ativan 1mg IV. On my examination, which was after Ativan administration, the history was limited as patient was sleeping and arousable but desired to keep sleeping without being interrupted. Principal Diagnosis Syncope presumed due to ventricular dysrhythmia Discharge Exam General-alert and oriented x3, no fevers, no chills HEENT-head atraumatic and normocephalic, pupils equal and reactive to light, extraocular muscles intact Neck-no lymphadenopathy or thyromegaly, trachea midline Chest-clear to auscultation percussion. No rales wheezing or rhonchi Cardiac-regular rate and rhythm, normal S1 and S2 Abdomen-normal bowel sounds, nontender, no hepatosplenomegaly Extremities-no cyanosis, clubbing, or edema Neuro-cranial nerves II through XII intact, motor and sensory function within normal limits, strength symmetrical , no focal deficits Psych-normal affect, normal mood Discharge Data Allergies Allergy/AdvReac Type Severity Reaction Status Date / Time No Known Allergies Allergy Verified 04/13/22 21:53 Consultations 04/13/22 23:49 ED Decision to Admit Stat 04/14/22 01:49 Consult Cardiology Routine Ordered Studies 04/13/22 21:28 CT head/brain wo con Urgent Hospital Course (1) Ventricular tachyarrhythmia: Current management per cardiology. He is on intravenous amiodarone, Xarelto and metoprolol. Metoprolol dosage uptitrated today, April 15. Awaiting transfer to [facility] for a ablation therapy when bed is available. He presented this admission with syncope apparently due to ventricular arrhythmia. (2) Atrial fibrillation: Diagnosed last hospitalization. Continue amiodarone gtt. Xarelto and metoprolol as above. (3) Elevated troponin: Downtrending. No evidence of acute coronary syndrome. Probably from supply demand mismatch when he has ventricular tachycardia. (4) COVID-19: Recent diagnosis on 04/09. Currently asymptomatic. Supportive care. Supportive care. (5) Hypertension: Continue home HCTZ, Lisinopril, and Metoprolol. Currently stable (6) Coronary artery disease: recent cardiac catheterization reveals non-obstructive CAD. Continue daily baby ASA and statin (7) Acid reflux disease: Continue home Protonix. (8) Depression: Continue home Wellbutrin. (9) Right ischial pressure sore, stage 1: Wound care while inpatient. (10) Syncope: The patient presented this admission with syncope presumed to be due to ventricular dysrhythmia. Telemetry. Continue aggressive treatment of ventricular dysrhythmia Plan Code Status: full code FEN/GI: heart healthy DVT Prophylaxis: SCDs, Xarelto Disposition: Transfer to [facility] in [place] for ventricular ablation when bed is available Total Time Total Time Spent Total Time Spent (In Minutes): 35 minutes Discharge Plan Discharge Items Patient Disposition: Transfer Acute Care Hospital Reason For Visit: VENTRICULAR TACHYCARDIA Discharge Diagnosis: Syncope due to ventricular tachycardia Activity: Resume your previous activity Non-emergency contact: Primary Care Provider Call non-emergency contact if: your symptoms worsen Follow-up/Referrals: Juan Manuel Early III, CRNP [Primary Care Provider] - Diet: Heart Healthy Addtl Attending Provider Instructions: See local director of trauma as soon as possible after return from [facility] Pending Studies at Discharge: No Stand-Alone Forms: My [facility] Skilled Items Patient informed of condition?: Yes DNR: No Discharge Level of Care: Other Communicable Disease: Yes Discharge Prognosis: Stable Lines: Peripheral IV Urinary Catheter: No Medications and DC Order Prescriptions: New Xarelto 20 mg Tablet 20 mg PO QPM Qty: 30 0RF metoprolol succinate 50 mg Tablet Extended Release 24 Hr 50 mg PO QAM Qty: 60 0RF Continued bupropion HCl 150 mg tablet sustained-release 12 hr 150 mg PO BID Qty: 180 2RF lisinopril 20 mg tablet 20 mg PO BID Qty: 180 1RF pantoprazole [Protonix] 40 mg tablet,delayed release (DR/EC) 40 mg PO QAM Qty: 90 3RF atorvastatin 80 mg tablet 80 mg PO HS Qty: 90 3RF amiodarone 200 mg Tablet 400 mg PO QAM Qty: 30 0RF aspirin 81 mg Tablet,Delayed Release (Dr/Ec) 81 mg PO QAM folic acid 400 mcg Tablet 0.4 mg PO QAM amoxicillin 500 mg tablet 2,000 mg PO DIRECTED PRN (Reason: Prophylaxis) Rx Instructions: take 1 hour before dental appointment hydrochlorothiazide 25 mg tablet 25 mg PO QAM fluocinonide 0.05 % Cream 1 applic TOPICAL BID PRN (Reason: .rash) Discontinued metoprolol succinate 25 mg Tablet Extended Release 24 Hr 25 mg PO QAM Qty: 30 0RF Xarelto 15 mg tablet 15 mg PO PM Qty: 30 0RF Rx Instructions: must administer with evening meal Discharge Orders: Discharge Order (Routine); Ordered 04/15/22 Ordered By: Misha Walker Admission Data Admit Date/Time: 04/14/22 00:41 Attending Provider: Misha Walker Admit Provider: Vinod Boston Primary Care Provider: Juan Manuel Early III Other Providers: Ninfa Petersen ; Eugenio Argueta Coding Level of Care Code D/C DAY MANAGEMENT >30 MINS Diagnoses Ventricular tachyarrhythmia I47.20 Atrial fibrillation I48.91 Elevated troponin R77.8 COVID-19 U07.1 Hypertension I10 Hypertension type: essential hypertension Coronary artery disease I25.10 Coronary Disease-Associated Artery/Lesion type: [place] artery [place] vs. transplanted heart: [place] heart Associated angina: without angina Acid reflux disease K21.9 Esophagitis presence: without esophagitis Depression F32.0 Depression Type: major depressive disorder Major depression recurrence: single episode Active/Remission status: currently active Major depression episode severity: mild Right ischial pressure sore, stage 1 L89.311 Syncope R55
--- NOTE | 2022-04-15 13:51 | Cardiology Progress Note ---
Date of Service April 15, 2022 Assessment & Plan (1) Ventricular tachyarrhythmia: (2) Atrial fibrillation: (3) Presence of combination internal cardiac defibrillator (ICD) and pacemaker: (4) Elevated troponin: (5) Coronary artery disease: Plan 1. Ventricular tachycardia: he had an episode of ventricular tachycardia lasting several minutes last evening. The initial rate was just under the detection limit but eventually it peaked over 150 beats per minute and was treated successfully with 1 round of ATP. Patient's device was Re programmed to a lower detection limit in he had another episode of ventricular tachycardia successfully treated with ATP this morning. Minimal symptoms. However, given the frequent and recurrent nature of his ventricular tachycardia despite more aggressive medical therapy and some difficulty program his device to account for the low rates he would likely be well served by catheter based therapy. Will continue the amiodarone infusion. Beta-kunal increased last evening. Pacing rate increased to Hopefully reduced ventricular ectopy. Lidocaine could be considered for additional episodes. [facility] contacted for possible transfer. 2. 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 As noted above our plan at some point will be to perform perfusion imaging. No current symptoms suggestive of ischemia. 3. Elevated troponin: Actually much lower than prior. I suspect this is due to shorter episodes of ventricular tachycardia. Again, no symptoms consistent with an acute coronary syndrome or coronary insufficiency. 4. Atrial fibrillation: Patient presented with atrial fibrillation at the time of his last admission. This was documented as early as October of last year. He has not been placed on systemic anticoagulation due to his recent implant but was scheduled to start Xarelto today. I will start the Xarelto. He was cardioverted for his VT and subsequently atrial fibrillation last evening. Admission and Anticipated Discharge Date Admission Date: April 14, 2022 Subjective this morning the patient did not verbalize any specific complaints. He states that he had a very vivid dream last night, but was not aware of any particular palpitations, dizziness, chest pain or breathing difficulty. He is anxious to get out of bed for a bowel movement this morning. He was somewhat disappointed in his breakfast. Review of Systems Review of Systems: Per HPI Physical Exam Physical Exam: The patient is alert and oriented. Mood and affect appeared normal. He answered all questions appropriately. HEENT: Pupils are equal and reactive to light and accommodation. Extraocular movements are intact. The sclerae are anicteric. Neuro: Cranial nerves intact Lungs: Clear to auscultation bilaterally. He has good air movement without use of accessory muscles. No rales wheezes or rhonchi. Cardiac: Heart demonstrates a regular rate and rhythm with occasional ectopy. Normal S1 and S2. No murmurs on examination. Chest: Ecchymosis surrounding the device implant site and the left axilla. No significant hematoma. Pulses: The patient has palpable radial pulses bilaterally that are equal in intensity Extremities: There was no evidence of hypoperfusion. Good perfusion of both hands. There is no cyanosis or clubbing. There is no edema. Skin: I did not appreciate any rashes on examination today. Results & Data ([facility]) Vital Signs (Past 12 Hours) Vital Signs Temp Pulse Pulse Resp BP Pulse Ox O2 Del Method 04/15/22 11:49 36.9 C 74 18 146/98 H 96 Room Air 04/15/22 09:45 76 04/15/22 08:02 36.8 C 75 18 166/101 H 94 Room Air 04/15/22 03:18 36.7 C 75 18 136/98 94 Room Air Laboratory Results Abnormal Lab Results 04/14/22 18:26 Troponin I High Sens 106.0 H* PG Care Time/CCT Total # of Minutes Spent Total Time Spent with Patient: Total time spent is greater than 50% in coordination of care (as documented) at patient's floor/unit and/or counseling patient: Coding Level of Care Code 57758 Subseq Hosp Care Lvl 3 Diagnoses Ventricular tachyarrhythmia I47.20 Atrial fibrillation I48.91 Presence of combination internal cardiac defibrillator (ICD) and pacemaker Z95.810 Elevated troponin R77.8 Coronary artery disease I25.10 Coronary Disease-Associated Artery/Lesion type: [place] artery [place] vs. transplanted heart: [place] heart Associated angina: without angina (1) Coronary artery disease Coronary Disease-Associated Artery/Lesion type: [place] artery [place] vs. transplanted heart: [place] heart Associated angina: without angina Qualified Code(s): I25.10 - Atherosclerotic heart disease of [place] coronary artery without angina pectoris
[2022-04-15] MEDS: ATORVASTATIN 40 MG TAB PO SCH (20:42)
[2022-04-15] MEDS: RIVAROXABAN 20 MG TAB PO SCH (20:42)
[2022-04-16 07:20] LABS: Creatinine Clr Calc Pharmacy 53.5 ml/min; Est GFR (African American) 60.2 ml/min; Est GFR (Non-African American) 51.9 ml/min
--- NOTE | 2022-04-16 09:01 | Cardiology Progress Note ---
Date of Service April 16, 2022 Assessment & Plan (1) Ventricular tachyarrhythmia: (2) Atrial fibrillation: (3) Presence of combination internal cardiac defibrillator (ICD) and pacemaker: (4) Elevated troponin: (5) Coronary artery disease: Plan 1. Ventricular tachycardia: he had 3 additional episodes of ventricular tachycardia yesterday. These appear to start spontaneously. Even though he has ventricular ectopy there does not appear to be any R on T phenomenon. The epi sodes themselves are monomorphic. All terminated with ATP. No apparent symptoms. Continue amiodarone infusion. Plan for catheter based therapy when a bed available. For more frequent episodes or additional cardioversions, I would consider the addition lidocaine. 2. 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 As noted above our plan at some point will be to perform perfusion imaging. Could not be performed currently due to his COVID positive status.No current symptoms suggestive of ischemia. 3. Elevated troponin: Lower than prior admission. Not indicative of a recent acute coronary syndrome. 4. Atrial fibrillation: Patient presented with atrial fibrillation at the time of his last admission. This was documented as early as October of last year. He returned to sinus rhythm with cardioversion of his ventricular tachycardia at the time of admission. He was not anticoagulated. Xarelto was started afterwards, but discontinued currently in anticipation of VT ablation. Will start heparin infusion this evening. Admission and Anticipated Discharge Date Admission Date: April 14, 2022 Subjective Patient had some questions regarding his medication boxes and finding his ICD identification card. He did not report any new symptoms. Very mild discomfort at the device implant site. This occurs only with palpation. Denies dizziness or sense of palpitation. [facility]. Review of Systems Review of Systems: Per HPI Physical Exam Physical Exam: The patient is alert and oriented. Mood and affect appeared normal. He answered all questions appropriately. HEENT: Pupils are equal and reactive to light and accommodation. Extraocular movements are intact. The sclerae are anicteric. Neuro: Cranial nerves intact Lungs: He has good air movement without use of accessory muscles. No rales wheezes or rhonchi. Cardiac: Heart demonstrates a regular rate and rhythm with occasional ectopy. Chest: Ecchymosis surrounding the device implant site and the left axilla. No significant hematoma. improving Pulses: The patient has palpable radial pulses bilaterally that are equal in intensity Extremities: There was no evidence of hypoperfusion. Good perfusion of both hands. There is no cyanosis or clubbing. There is no edema. Skin: I did not appreciate any rashes on examination today. Results & Data ([facility]) Vital Signs (Past 12 Hours) Vital Signs Temp Pulse Pulse Resp BP BP Pulse Ox 04/16/22 07:50 36.9 C 75 20 149/104 H 95 04/16/22 07:00 69 04/16/22 04:17 37.0 C 75 16 149/91 H 93 04/16/22 00:27 36.7 C 74 18 136/93 97 04/15/22 21:23 O2 Del Method 04/16/22 07:50 Room Air 04/16/22 07:00 04/16/22 04:17 Room Air 04/16/22 00:27 Room Air 04/15/22 21:23 Room Air Laboratory Results Abnormal Lab Results 04/16/22 06:22 Creatinine 1.27 Est Cr Clr Drug Dosing 53.5 Est GFR ( Amer) 60.2 Est GFR (Non-Af Amer) 51.9 Diagnostic Findings Patient underwent coronary angiography 04/11/2022. LAD and right coronary artery are normal without obstructive disease. 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 Echocardiogram performed 04/10/2022: Ejection fraction 50%. Mild LVH. Normally functioning bioprosthetic aortic valve. Mild mitral regurgitation and elevated pulmonary pressures. Device interrogation at the time of admission reveals 2 episodes of ventricular tachycardia. One lasting approximately 6 minutes and another lasting 18 minutes. These episodes fell outside the therapy zone. Patient also converted to sinus rhythm from atrial fibrillation. PG Care Time/CCT Total # of Minutes Spent Total Time Spent with Patient: Total time spent is greater than 50% in coordination of care (as documented) at patient's floor/unit and/or counseling patient: Coding Level of Care Code 72804 SUB INP/OBS CARE 2/35MIN Diagnoses Ventricular tachyarrhythmia I47.20 Atrial fibrillation I48.91 Presence of combination internal cardiac defibrillator (ICD) and pacemaker Z95.810 Elevated troponin R77.8 Coronary artery disease I25.10 Coronary Disease-Associated Artery/Lesion type: [place] artery [place] vs. transplanted heart: [place] heart Associated angina: without angina (1) Coronary artery disease Coronary Disease-Associated Artery/Lesion type: [place] artery [place] vs. transplanted heart: [place] heart Associated angina: without angina Qualified Code(s): I25.10 - Atherosclerotic heart disease of [place] coronary artery without angina pectoris
[2022-04-16] MEDS: ASPIRIN 81 MG ECTAB PO SCH (09:02)
[2022-04-16] MEDS: buPROPion SR 150 MG TABCR PO SCH ×2 (09:02→21:02)
[2022-04-16] MEDS: METOPROLOL SUCC 50MG EXT REL TAB PO SCH (09:03)
[2022-04-16] MEDS: PANTOprazole 40 MG TAB PO SCH (09:03)
[2022-04-16] MEDS: hydroCHLOROthiazide 25 MG TAB PO SCH (09:03)
[2022-04-16] MEDS: FOLIC ACID 400 MCG TAB PO SCH (09:03)
[2022-04-16] MEDS: lisinopril 20 MG TAB PO SCH ×2 (09:03→21:03)
[2022-04-16] MEDS: AMIODARONE / D5W 360 MG/200 ML BAG IV SCH ×2 (11:25→23:24)
[2022-04-16] MEDS ORDERED: Heparin IV Adult Wt-Based Low-Dose *NO* Bolus Protocol IV SCH (19:11)
[2022-04-16] MEDS ORDERED: HEPARIN SODIUM/DEXTROSE 25,000 UNITS/500 ML BAG IV SCH (19:15)
[2022-04-16] MEDS: ATORVASTATIN 40 MG TAB PO SCH (21:02)
[2022-04-16 21:13] LABS: INR 1.2 (0.9-1.1); Partial Thromboplastin Ratio 1.3; Partial Thromboplastin Time 34.7 Seconds (21.0-31.0); Prothrombin Time 12.7 Seconds (9.0-12.0)
--- NOTE | 2022-04-16 22:24 | Hospitalist Progress Note ---
Date of Service April 16, 2022 Assessment & Plan (1) Ventricular tachyarrhythmia: Plan: Current management per cardiology. He is on intravenous amiodarone, Xarelto and metoprolol. Metoprolol dosage uptitrated today, April 15. Awaiting transfer to [facility] for a ablation therapy when bed is available. He presented this admission with syncope apparently due to ventricular arrhythmia. (2) Atrial fibrillation: Plan: Diagnosed last hospitalization. Continue amiodarone gtt. Xarelto and metoprolol as above. (3) Elevated troponin: Plan: Downtrending. No evidence of acute coronary syndrome. Probably from supply demand mismatch when he has ventricular tachycardia. (4) COVID-19: Plan: Recent diagnosis on 04/09. Currently asymptomatic. Supportive care. Supportive care. (5) Hypertension: Plan: Continue home HCTZ, Lisinopril, and Metoprolol. Currently stable (6) Coronary artery disease: Plan: recent cardiac catheterization reveals non-obstructive CAD. Continue daily baby ASA and statin (7) Acid reflux disease: Plan: Continue home Protonix. (8) Depression: Plan: Continue home Wellbutrin. (9) Right ischial pressure sore, stage 1: Plan: Wound care while inpatient. (10) Syncope: Plan: The patient presented this admission with syncope presumed to be due to ventricular dysrhythmia. Telemetry. Continue aggressive treatment of ventricular dysrhythmia Plan Code Status: full code FEN/GI: heart healthy DVT Prophylaxis: SCDs, Xarelto Disposition: Transfer to [facility] in [place] for ventricular ablation when bed is available Admission and Anticipated Discharge Date Admission Date: April 14, 2022 Subjective Patient resting comfortably. Review of Systems Review of Systems: All systems reviewed & are unremarkable except as noted in HPI & below Physical Exam Physical Exam: Patient is resting comfortably in bed. Results & Data Results & Data ([facility]) Vital Signs (Past 12 Hours) Vital Signs Temp Pulse Pulse Resp BP Pulse Ox O2 Del Method 04/16/22 19:51 36.9 C 75 20 140/98 95 Room Air 04/16/22 17:28 36.7 C 75 18 161/108 H 96 Room Air 04/16/22 17:05 75 04/16/22 12:01 36.8 C 75 18 128/89 94 Room Air PG Care Time/CCT Total # of Minutes Spent Total Time Spent with Patient: Total time spent is greater than 50% in coordination of care (as documented) at patient's floor/unit and/or counseling patient: Coding Level of Care Code 66265 SUB INP/OBS CARE 05/07MIN Diagnoses Ventricular tachyarrhythmia I47.20 Atrial fibrillation I48.91 Elevated troponin R77.8 COVID-19 U07.1 Hypertension I10 Hypertension type: essential hypertension Coronary artery disease I25.10 Associated angina: without angina Coronary Disease-Associated Artery/Lesion type: [place] artery [place] vs. transplanted heart: [place] heart Acid reflux disease K21.9 Esophagitis presence: without esophagitis Depression F32.0 Active/Remission status: currently active Depression Type: major depressive disorder Major depression episode severity: mild Major depression recurrence: single episode Right ischial pressure sore, stage 1 L89.311 Syncope R55 (1) Coronary artery disease Associated angina: without angina Coronary Disease-Associated Artery/Lesion type: [place] artery [place] vs. transplanted heart: [place] heart Qualified Code(s): I25.10 - Atherosclerotic heart disease of [place] coronary artery without angina pectoris (2) Depression Active/Remission status: currently active Depression Type: major depressive disorder Major depression episode severity: mild Major depression recurrence: single episode Qualified Code(s): F32.0 - Major depressive disorder, single episode, mild (3) Acid reflux disease Esophagitis presence: without esophagitis Qualified Code(s): K21.9 - Gastro- esophageal reflux disease without esophagitis (4) Hypertension Hypertension type: essential hypertension Qualified Code(s): I10 - Essential (primary) hypertension
[2022-04-16 23:01] LABS: Basophils # (auto) 0.02 K/uL (0-0.2); Basophils % (auto) 0.2 %; Eosinophils # (auto) 0.29 K/uL (0-0.50); Eosinophils % (auto) 2.5 %; Hematocrit (blood only) 34.1 % (40.1-51.0); Hemoglobin 11.8 g/dl (14.0-18.0); Immature Granulocytes # (auto) 0.05 K/uL (0.00-0.02); Immature Granulocytes % (auto) 0.4 %; Lymphocytes # (auto) 1.46 K/uL (1.2-3.4); Lymphocytes % (auto) 12.6 %; Mean Corpuscular Hemoglobin 29.9 pg (25.0-34.0); Mean Corpuscular Hgb Conc 34.6 g/dL (32.0-36.0); Mean Corpuscular Volume 86.5 fL (80.0-100.0); Mean Platelet Volume 11.6 fL (9.4-12.4); Monocytes # (auto) 1.35 K/uL (0.24-0.82); Monocytes % (auto) 11.7 %; Neutrophils # (auto) 8.39 K/uL (1.4-6.5); Neutrophils % (auto) 72.6 %; Platelet Count 185 K/uL (130-400); RDW Coefficient of Variation 14.5 % (11.5-14.5); RDW Standard Deviation 45.8 fL (36.4-46.3); Red Blood Count 3.94 M/uL (4.63-6.08); White Blood Count 11.56 K/ul (4.8-10.8)
[2022-04-17 05:36] LABS: Partial Thromboplastin Ratio 2.6
[2022-04-17 05:51] LABS: Partial Thromboplastin Time 70.5 Seconds (21.0-31.0)
[2022-04-17 05:54] LABS: Creatinine Clr Calc Pharmacy 62.3 ml/min; Est GFR (African American) 72.4 ml/min; Est GFR (Non-African American) 62.4 ml/min
[2022-04-17] MEDS: buPROPion SR 150 MG TABCR PO SCH (07:36)
[2022-04-17] MEDS: ASPIRIN 81 MG ECTAB PO SCH (07:36)
[2022-04-17] MEDS: lisinopril 20 MG TAB PO SCH (07:36)
[2022-04-17] MEDS: PANTOprazole 40 MG TAB PO SCH (07:37)
[2022-04-17] MEDS: hydroCHLOROthiazide 25 MG TAB PO SCH (07:37)
[2022-04-17] MEDS: METOPROLOL SUCC 50MG EXT REL TAB PO SCH (07:37)
[2022-04-17] MEDS: FOLIC ACID 400 MCG TAB PO SCH (07:37)
--- NOTE | 2022-04-17 09:00 | Hospitalist Progress Note ---
Date of Service April 17, 2022 Assessment & Plan (1) Ventricular tachyarrhythmia: Plan: Current management per cardiology. He is on intravenous amiodarone, Xarelto and metoprolol. Metoprolol dosage uptitrated April 15. Awaiting transfer to [facility] for a ablation therapy when bed is available. He presented this admission with syncope apparently due to ventricular arrhythmia. Pt is on amiodarone gtt on Heparin gtt Appears to remain in paced rhythm with exception of his arrhythmia (2) Atrial fibrillation: Plan: Diagnosed last hospitalization. Continue amiodarone gtt. Xarelto held in favor of heparin as possible ablative procedure in the short-term future and continues metoprolol COVID-19 infection currently can have a plan his arrhythmia (3) Elevated troponin: Plan: Downtrending. No evidence of acute coronary syndrome. Secondary to demand mismatch when he has ventricular tachycardia. (4) COVID-19: Plan: Recent diagnosis on 04/09. Currently asymptomatic. Supportive care. (5) Hypertension: Plan: Continue home HCTZ, Lisinopril, and Metoprolol. Currently stable (6) Coronary artery disease: Plan: recent cardiac catheterization reveals non-obstructive CAD. Continue daily baby ASA and statin (7) Acid reflux disease: Plan: Continue home Protonix. (8) Depression: Plan: Continue home Wellbutrin. (9) Right ischial pressure sore, stage 1: Plan: Wound care while inpatient. (10) Syncope: Plan: The patient presented this admission with syncope presumed to be due to ventricular dysrhythmia. Telemetry. Continue aggressive treatment of ventricular dysrhythmia Plan Code Status: full code Disposition: Transfer to [facility] in [place] for ventricular ablation when bed is available Admission and Anticipated Discharge Date Admission Date: April 14, 2022 Subjective Patient was stable when I saw him but did have episodes of his arrhythmia associated symptoms of fatigue and clinically observe the poor perfusion by nursing staff. Patient is scheduled for transfer to [facility] for possible ablative therapy of recurrent ventricular tachycardia despite pacemaker placement. Review of Systems Review of Systems: Mild distress and fatigue no headache, no visual changes no speech or swallowing issues no chest pain with palpations but patient does not feel well consents them no shortness of breath, cough or wheezes no abdominal pain, nausea or vomiting, diarrhea or constipation no dysuria, hematuria or frequency no focal joint pain or swelling no back pain, CVA tenderness or radicular pain Bruising around his pacemaker site no focal signs of weakness or numbness or altered sensation no complaints of anxiety or depression.. Physical Exam Physical Exam: The patient appeared well nourished and normally developed. Vital signs as documented. Head exam is normocephalic atraumatic Neck is without JVD, thyromegaly, or carotid bruits. Lungs are diminished at the bases but otherwise clear to auscultation, no focal loss of breath sounds Cardiac exam, Rhythm is regular.. Paced on the monitor with exception of his arrhythmia, Abdominal exam reveals normal bowel sounds, soft non tender, no masses Extremities are nonedematous and both pedal pulses are present Neurologic exam is alert and oriented, no focal loss of strength or sensation Skin is withBruising around his pacemaker site is nontender or fluctuant is not warm Psychologically is without concerns for anxiety or depression.. Results & Data Results & Data ([facility]) Vital Signs (Past 12 Hours) Vital Signs Temp Pulse Pulse Resp BP Pulse Ox O2 Del Method 04/17/22 04:37 98.2 F 75 17 140/89 94 Room Air 04/16/22 22:00 75 04/16/22 23:01 98.8 F 75 17 137/91 93 Room Air PG Care Time/CCT Total # of Minutes Spent Total Time Spent with Patient: Total time spent is greater than 50% in coordination of care (as documented) at patient's floor/unit and/or counseling patient: Coding Level of Care Code 36503 SUB INP/OBS CARE 3/50MIN Diagnoses Ventricular tachyarrhythmia I47.20 Atrial fibrillation I48.91 Elevated troponin R77.8 COVID-19 U07.1 Hypertension I10 Hypertension type: essential hypertension Coronary artery disease I25.10 Associated angina: without angina Coronary Disease-Associated Artery/Lesion type: [place] artery [place] vs. transplanted heart: [place] heart Acid reflux disease K21.9 Esophagitis presence: without esophagitis Depression F32.0 Active/Remission status: currently active Depression Type: major depressive disorder Major depression episode severity: mild Major depression recurrence: single episode Right ischial pressure sore, stage 1 L89.311 Syncope R55 (1) Coronary artery disease Associated angina: without angina Coronary Disease-Associated Artery/Lesion type: [place] artery [place] vs. transplanted heart: [place] heart Qualified Code(s): I25.10 - Atherosclerotic heart disease of [place] coronary artery without angina pectoris (2) Depression Active/Remission status: currently active Depression Type: major depressive disorder Major depression episode severity: mild Major depression recurrence: single episode Qualified Code(s): F32.0 - Major depressive disorder, single episode, mild (3) Acid reflux disease Esophagitis presence: without esophagitis Qualified Code(s): K21.9 - Gastro- esophageal reflux disease without esophagitis (4) Hypertension Hypertension type: essential hypertension Qualified Code(s): I10 - Essential (primary) hypertension
--- NOTE | 2022-04-17 11:02 | Cardiology Progress Note ---
Date of Service April 17, 2022 Assessment & Plan (1) Ventricular tachyarrhythmia: (2) Atrial fibrillation: (3) Presence of combination internal cardiac defibrillator (ICD) and pacemaker: (4) Elevated troponin: (5) Coronary artery disease: Plan 1. Ventricular tachycardia: He continues to have occasional episodes of nonsustained ventricular tachycardia. These appear to be more frequent this morning around 830 when he was ambulatory to the commode. No additional therapies. Will continue amiodarone infusion and beta-blockade. Anticipate transfer to [facility] to explore VT ablation. 2. 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 As noted above our plan at some point will be to perform perfusion imaging. Could not be performed currently due to his COVID positive status.No current symptoms suggestive of ischemia. 3. Elevated troponin: Lower than prior admission. Not indicative of a recent acute coronary syndrome. 4. Atrial fibrillation: Patient presented with atrial fibrillation at the time of his last admission. This was documented as early as October of last year. He returned to sinus rhythm with cardioversion of his ventricular tachycardia at the time of admission. He was not anticoagulated. Xarelto was started afterwards, but discontinued currently in anticipation of VT ablation. Continue systemic heparinization Admission and Anticipated Discharge Date Admission Date: April 14, 2022 Subjective The patient is not report any specific complaints. However, he was noted by the nursing staff to be somewhat [facility] This seemed to correlate with episodes of nonsustained ventricular tachycardia. He denies chest pain or breathing difficulty. No lower extremity edema. Some mild discomfort in the left antecubital fossa at the site of an old IV. Review of Systems Review of Systems: Per HPI Physical Exam Physical Exam: The patient is alert and oriented. Mood and affect appeared normal. He answered all questions appropriately. HEENT: Pupils are equal and reactive to light and accommodation. Extraocular movements are intact. The sclerae are anicteric. Neuro: Cranial nerves intact Lungs: He has good air movement without use of accessory muscles. No rales wheezes or rhonchi. Cardiac: Heart demonstrates a regular rate and rhythm with occasional ectopy. Chest: Ecchymosis surrounding the device implant site and the left axilla. No significant hematoma. improving Pulses: The patient has palpable radial pulses bilaterally that are equal in intensity Extremities: There was no evidence of hypoperfusion. Good perfusion of both hands. There is no cyanosis or clubbing. There is no edema. there is induration and erythema in the left antecubital fossa. Skin: I did not appreciate any rashes on examination today. Results & Data ([facility]) Vital Signs (Past 12 Hours) Vital Signs Temp Pulse Pulse Resp BP Pulse Ox O2 Del Method 04/17/22 07:00 75 04/17/22 04:37 36.8 C 75 17 140/89 94 Room Air 04/16/22 23:01 37.1 C 75 17 137/91 93 Room Air Laboratory Results Abnormal Lab Results 04/16/22 04/16/22 04/17/22 20:49 22:28 04:35 WBC 11.56 H RBC 3.94 L Hgb 11.8 L Hct 34.1 L MCV 86.5 MCH 29.9 MCHC 34.6 RDW Std Deviation 45.8 RDW Coeff of Yony 14.5 Plt Count 185 MPV 11.6 Immature Gran % (Auto) 0.4 Neut % (Auto) 72.6 Lymph % (Auto) 12.6 [place] % (Auto) 11.7 Eos % (Auto) 2.5 Baso % (Auto) 0.2 Neut # (Auto) 8.39 H Lymph # (Auto) 1.46 [place] # (Auto) 1.35 H Eos # (Auto) 0.29 Baso # (Auto) 0.02 Immature Gran # (Auto) 0.05 H PT 12.7 H INR 1.2 H APTT 34.7 H PTT Ratio 1.3 Creatinine 1.09 Est Cr Clr Drug Dosing 62.3 Est GFR ( Amer) 72.4 Est GFR (Non-Af Amer) 62.4 04/17/22 04:35 WBC RBC Hgb Hct MCV MCH MCHC RDW Std Deviation RDW Coeff of Yony Plt Count MPV Immature Gran % (Auto) Neut % (Auto) Lymph % (Auto) [place] % (Auto) Eos % (Auto) Baso % (Auto) Neut # (Auto) Lymph # (Auto) [place] # (Auto) Eos # (Auto) Baso # (Auto) Immature Gran # (Auto) PT INR APTT 70.5 H* PTT Ratio 2.6 Creatinine Est Cr Clr Drug Dosing Est GFR ( Amer) Est GFR (Non-Af Amer) PG Care Time/CCT Total # of Minutes Spent Total Time Spent with Patient: Total time spent is greater than 50% in coordination of care (as documented) at patient's floor/unit and/or counseling patient: Coding Level of Care Code 57479 SUB INP/OBS CARE 2/35MIN Diagnoses Ventricular tachyarrhythmia I47.20 Atrial fibrillation I48.91 Presence of combination internal cardiac defibrillator (ICD) and pacemaker Z95.810 Elevated troponin R77.8 Coronary artery disease I25.10 Coronary Disease-Associated Artery/Lesion type: [place] artery [place] vs. transplanted heart: [place] heart Associated angina: without angina (1) Coronary artery disease Coronary Disease-Associated Artery/Lesion type: [place] artery [place] vs. transplanted heart: [place] heart Associated angina: without angina Qualified Code(s): I25.10 - Atherosclerotic heart disease of [place] coronary artery without angina pectoris
[2022-04-17] MEDS: AMIODARONE / D5W 360 MG/200 ML BAG IV SCH (12:17)
[2022-04-17 13:20] LABS: Partial Thromboplastin Ratio 1.8
[2022-04-17 13:28] LABS: Partial Thromboplastin Time 50.7 Seconds (21.0-31.0)
--- NOTE | 2022-04-17 20:15 | Discharge Summary ---
Date of Service April 17, 2022 Admission HPI Per Admitting Provider Kermit Rogers is an 81yo male with PMHx significant for non-obstructive CAD (last TTE in 10/2021 with EF 50-55%, RVSP 50-55), aortic stenosis (s/p bioprosthetic AVR at [facility] in 2010), h/o LBBB, pulmonary hypertension, right ischial pressure sore (stage I), HTN, HLD, hyperthyroidism and prediabetes, who presented to [facility] ED on 04/14/2022 after syncopal episode. Patient had reported dizziness/lightheadedness as well as some decreased PO intake, without chest pain, palpitations or shortness of breath. Patient was hospitalized here from 04/09 to 04/12 for hemodynamically unstable ventricular tachycardia that required synchronized cardioversion and Amiodarone gtt x36 hours which was transitioned to daily oral Amiodarone on discharge. Also had cardiac catheterization showing non-obstructive CAD, and had PPM/ICD placed as well. Patient had persistent a-fib since cardioversion (CHADS-VASc 4 - age/HTN/vascular dx) and was on Heparin gtt that was discontinued on discharge, with plans to start Xarelto on 04/14 (3 days after ICD placement). Lastly patient had COVID-19 with respiratory symptoms x1 week, decreased PO intake and hypoxia, thought to be impetus for cardiac issues. He was treated with steroids and pulmonary toilet during hospitalization. In the ED the patient was satting 90% on room air and required 2L supplemental O2 to maintain sats above 90%. Initial EKG showed wide-complex tachycardia [address]-depressions in septal leads. Repeat EKG after patient had synchronized cardioversion with 100J showed AV dual-paced rhythm with biventricular pacer and with PVCs. hsTroponin 157.6 (down from 716.5 on 04/10). COVID-19 remains positive (also positive on 04/09) - patient is now on day 12 of symptoms. Otherwise labs significant for Hgb 11.6 (at baseline). Cr 1.54 (baseline 1.3 - 1.5), BUN 57 (up from 46 on 04/12). Otherwise CBC/CMP/Mg/INR/PT/PTT WNL. CXR (my interpretation) with cardiomegaly (chronic) and mild left pleural effusion. CT head without acute abnormalities. In the ED the patient was given synchronized cardioversion as stated above, Amiodarone bolus + gtt, as well as Ativan 1mg IV. On my examination, which was after Ativan administration, the history was limited as patient was sleeping and arousable but desired to keep sleeping without being interrupted. Principal Diagnosis ventricular arrhythmia Discharge Data Allergies Allergy/AdvReac Type Severity Reaction Status Date / Time No Known Allergies Allergy Verified 04/13/22 21:53 Consultations 04/13/22 23:49 ED Decision to Admit Stat 04/14/22 01:49 Consult Cardiology Routine Ordered Studies 04/13/22 21:28 CT head/brain wo con Urgent Hospital Course (1) Ventricular tachyarrhythmia: Current management per cardiology. He is on intravenous amiodarone, Xarelto and metoprolol. Metoprolol dosage uptitrated April 15. Awaiting transfer to [facility] for a ablation therapy when bed is available. He presented this admission with syncope apparently due to ventricular arrhythmia. Pt is on amiodarone gtt on Heparin gtt (2) Atrial fibrillation: Diagnosed last hospitalization. Continue amiodarone gtt. Xarelto held in favor of heparin and continues metoprolol (3) Elevated troponin: Downtrending. No evidence of acute coronary syndrome. Probably from supply demand mismatch when he has ventricular tachycardia. (4) COVID-19: Recent diagnosis on 04/09. Currently asymptomatic. Supportive care. (5) Hypertension: Continue home HCTZ, Lisinopril, and Metoprolol. Currently stable (6) Coronary artery disease: recent cardiac catheterization reveals non-obstructive CAD. Continue daily baby ASA and statin (7) Acid reflux disease: Continue home Protonix. (8) Depression: Continue home Wellbutrin. (9) Right ischial pressure sore, stage 1: Wound care while inpatient. (10) Syncope: The patient presented this admission with syncope presumed to be due to ventricular dysrhythmia. Telemetry. Continue aggressive treatment of ventricular dysrhythmia Plan Code Status: full code Disposition: Transfer to [facility] in [place] for ventricular ablation when bed is available Total Time Total Time Spent Total Time Spent (In Minutes): It required greater than 30 minutes to prepare this patient for discharge Discharge Plan Discharge Items Patient Disposition: Transfer Acute Care Hospital Reason For Visit: VENTRICULAR TACHYCARDIA Discharge Diagnosis: Syncope due to ventricular tachycardia Activity: Resume your previous activity Non-emergency contact: Primary Care Provider Call non-emergency contact if: your symptoms worsen Follow-up/Referrals: Juan Manuel Early III, LIZ [Primary Care Provider] - Diet: Heart Healthy Addtl Attending Provider Instructions: See local data collection specialist as soon as possible after return from [facility] Pending Studies at Discharge: No Stand-Alone Forms: My [facility] Skilled Items Patient informed of condition?: Yes DNR: No Discharge Level of Care: Other Communicable Disease: Yes Discharge Prognosis: Stable Lines: Peripheral IV Urinary Catheter: No Medications and DC Order Prescriptions: New Xarelto 20 mg Tablet 20 mg PO QPM Qty: 30 0RF metoprolol succinate 50 mg Tablet Extended Release 24 Hr 50 mg PO QAM Qty: 60 0RF Continued bupropion HCl 150 mg tablet sustained-release 12 hr 150 mg PO BID Qty: 180 2RF lisinopril 20 mg tablet 20 mg PO BID Qty: 180 1RF pantoprazole [Protonix] 40 mg tablet,delayed release (DR/EC) 40 mg PO QAM Qty: 90 3RF atorvastatin 80 mg tablet 80 mg PO HS Qty: 90 3RF amiodarone 200 mg Tablet 400 mg PO QAM Qty: 30 0RF aspirin 81 mg Tablet,Delayed Release (Dr/Ec) 81 mg PO QAM folic acid 400 mcg Tablet 0.4 mg PO QAM amoxicillin 500 mg tablet 2,000 mg PO DIRECTED PRN (Reason: Prophylaxis) Rx Instructions: take 1 hour before dental appointment hydrochlorothiazide 25 mg tablet 25 mg PO QAM fluocinonide 0.05 % Cream 1 applic TOPICAL BID PRN (Reason: .rash) Discontinued metoprolol succinate 25 mg Tablet Extended Release 24 Hr 25 mg PO QAM Qty: 30 0RF Xarelto 15 mg tablet 15 mg PO PM Qty: 30 0RF Rx Instructions: must administer with evening meal Discharge Orders: Discharge Order (Routine); Ordered 04/17/22 Ordered By: Taiwo Hernandez Admission Data Admit Date/Time: 04/14/22 00:41 Attending Provider: Taiwo Hernandez Admit Provider: Vinod Boston Primary Care Provider: Juan Manuel Early III Other Providers: Ninfa Petersen,Christopher W. Coding Level of Care Code HOSP INP/OBS DISCH >30 MIN Diagnoses Ventricular tachyarrhythmia I47.20 Atrial fibrillation I48.91 Elevated troponin R77.8 COVID-19 U07.1 Hypertension I10 Hypertension type: essential hypertension Coronary artery disease I25.10 Associated angina: without angina Coronary Disease-Associated Artery/Lesion type: [place] artery [place] vs. transplanted heart: [place] heart Acid reflux disease K21.9 Esophagitis presence: without esophagitis Depression F32.0 Active/Remission status: currently active Depression Type: major depressive disorder Major depression episode severity: mild Major depression recurrence: single episode Right ischial pressure sore, stage 1 L89.311 Syncope R55
== END 2022-04-17 21:00 | disposition short-term general hospital (02) | DRG 308 ==
LOC: ED 21:20 → EDINP 04-14 00:41 → SUATTDRO 04-14 00:41 → 2E 04-14 01:49

== ENCOUNTER 2022-09-09 14:10 | Inpatient (IN) ==
[2022-09-09 15:03] LABS: Basophils # (auto) 0.05 K/uL (0-0.2); Basophils % (auto) 0.7 %; Eosinophils # (auto) 0.15 K/uL (0-0.50); Eosinophils % (auto) 2.2 %; Hematocrit (blood only) 38.4 % (42.0-52.0); Hemoglobin 12.7 g/dl (14.0-18.0); Immature Granulocytes # (auto) 0.01 K/uL (0.01-0.20); Immature Granulocytes % (auto) 0.1 %; Lymphocytes # (auto) 1.26 K/uL (1.2-3.4); Lymphocytes % (auto) 18.4 %; Mean Corpuscular Hemoglobin 29.1 pg (25.0-34.0); Mean Corpuscular Hgb Conc 33.1 g/dL (32.0-36.0); Mean Corpuscular Volume 88.1 fL (80.0-100.0); Mean Platelet Volume 12.4 fL (9.4-12.4); Monocytes # (auto) 0.67 K/uL (0.11-0.59); Monocytes % (auto) 9.8 %; Neutrophils # (auto) 4.69 K/uL (1.40-6.50); Neutrophils % (auto) 68.8 %; Platelet Count 173 K/uL (130-400); RDW Coefficient of Variation 15.9 % (11.5-14.5); RDW Standard Deviation 51.4 fL (36.4-46.3); Red Blood Count 4.36 M/uL (4.70-6.10); White Blood Count 6.83 K/ul (4.8-10.8)
[2022-09-09 15:14] LABS: Albumin Level 3.9 gm/dl (3.4-5.0); BUN Creatinine Ratio 22.5 (10-20); Bilirubin,Total 0.8 mg/dl (0.2-1.0); Calcium 8.8 mg/dl (8.6-10.3); Creatinine Clr Calc Pharmacy 33.3 ml/min; Est GFR (African American) 34.7 ml/min; Globulin 3.9 gm/dl (2.5-4.0); Total Protein 7.8 gm/dl (6.0-8.3)
--- NOTE | 2022-09-09 18:55 | XRay Report ---
SINGLE VIEW CHEST CLINICAL HISTORY: Dyspnea. FINDINGS: 2 AP, portable, upright chest radiographs are compared to study dated 04/13/2022. The patient is status post midline sternotomy and cardiac valve surgery. A 3-lead cardiac AICD is unchanged in p osition. The heart is enlarged noting atherosclerotic calcification of the thoracic aorta. The pulmon petr vasculature is noncongested. There is mild elevation of the right hemidiaphragm with bibasilar sc arring/atelectasis. No airspace consolidation or large pleural effusion is identified. No pneumothora x is seen. The skeletal structures are osteopenic. The bony thorax is grossly intact. IMPRESSION: 1. Cardiomegaly and AICD without radiographic evidence of congestive failure. 2. No airspace consolidation or large pleural effusion is identified. ACT 112: Negative or not required by law. Electronically signed by: Maikel Davies M.D. 09/09/2022 6:54 PM
--- NOTE | 2022-09-09 18:58 | XRay Report ---
LEFT HAND 3 VIEWS CLINICAL HISTORY: Left hand injury. FINDINGS: 3 views of the left hand are obtained. No prior studies are available for comparison at the time of dictation. The skeletal structures are osteopenic. No fracture is seen. 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 This is greatest at the first carpometacarpal and metacarpo phalangeal joints. Significant soft tissue tissue edema is present throughout the wrist and hand, gre atest dorsally. IMPRESSION: Soft tissue swelling with no fracture identified. If there is clinical concern for occult fracture consider short-term radiographic follow-up. Electronically signed by: Maikel Davies M.D. 09/09/2022 6:56 PM
[2022-09-09] MEDS ORDERED: BUMETANIDE 1 MG in SYRINGE 0 ML IV ONE (19:07)
--- NOTE | 2022-09-09 19:24 | History & Physical Report ---
Resident Physician Supervision Note: I discussed the case with DAR Posada and agree with the findings and plan as documented in the note. Documented By: Antione Elaine MD Date of Service September 09, 2022 Assessment & Plan (1) Swelling of both lower extremities: Plan: -Admit to med/tele -Currently stable -Has been having ongoing issues with BL LE and LUE swelling, has been followed by his PCP and [facility] without improvement after increasing his diuretics recently -His differential is broad at this time including but not limited to CHF, CKD, obstructive mass, venous stasis, lymphedema -Will obtain repeat UA with Protein:Cr ratio, CT of the LUE, Chest, abd/pelvis for further evaluation of compressive mass, repeat TTE tomorrow, Cardiology and Nephrology consults -S/P 1 mg IV Bumex in the ED, will hold additional diuretics overnight to see how he responds -Monitor intake/output q6h, daily weights -Will ask nursing staff to place julio wraps on the BL LE's to assist with diuresis and swelling -Home eliquis for DVT PPX -AM CBC, CMP, Mag (2) Left upper extremity swelling: Plan: -Unsure of the exact timing as the patient is a poor historian -No sign of acute infection at this time, no leukocytosis, left UE distal pulses, motor function, and sensation are intact -Had a negative US of the LUE for DVT on 09/03 -Follow CT of the LUE wo con -Will obtain procal and crp for further evaluation of possible infection but hold abx for now (3) Elevated troponin: Plan: -Initial high sen trop elevated at 25 -The patient is asymptomatic and without acute ST segment or T-wave changes -Likely due to demand and current CATRACHITO -Will repeat STAT 2 hour trop now, continue to monitor on tele -FU TTE tomorrow (4) CKD (chronic kidney disease): Plan: -Cr at 2.0 today, has been trending up since April but baseline appears near 1.5 -Follow urine studies and CT's for further evaluation -Monitor renal function and electrolytes while on IV diuretics -q6h intake/output -Nephrology consult placed (5) Hypothyroidism: Plan: -Continue levothyroxine (6) Hypertension: Plan: -Stable -Continue metoprolol -Hold lisinopril for now with worsening renal function and IV diuresis to prevent hypotension (7) Atrial fibrillation: Plan: -HR currently rate controlled with pacemaker -Continue continue amiodarone and metoprolol (8) Acid reflux disease: Plan: -Continue PPI (9) Depression: Plan: -Continue wellbutrin Plan The patient was discussed with Dr. Aldana at the time of the admission History of Present Illness Chief Complaint: Progressive BL LE and left UE edema Primary Care Provider: Juan Manuel Early, III, LIZ Kermit is an 81 year old male with a PMH significant for non-obstructive CAD (last TTE in 10/2021 with EF 50-55%, RVSP 50-55), aortic stenosis (s/p bioprosthetic AVR at [facility] in 2010), afib on eliquis, h/o LBBB S/P biventricular pacemaker placement in 2021, pulmonary hypertension, CKD, HTN, HLD, hypothyroidism and prediabetes who presented to [facility] ED on 09/09/22 at the the recommendation of his PCP for ongoing BL LE and LUE swelling. In the ED vitals were noted to be stable. Labs were significant for a Cr of 2.00 (baseline appears to be around 1.5), stable alk phos of 132, initial high sen trop of 25.6, BNP of 690 (down from 709 as of 08/28). Chest xray was read as "1. Cardiomegaly and AICD without radiographic evidence of congestive failure. 2. No airspace consolidation or large pleural effusion is identified.". Xray of the left hand was read as "Soft tissue swelling with no fracture identified. If there is clinical concern for occult fracture consider short-term radiographic follow-up.". Prior to admission the patient was given 1 mg IV Bumex. Per chart review, the patient has been having ongoing issues with BL LE and LUE swelling, of which he has been following with is PCP and [facility]. Per the last PCP note from 09/03/22, his issues with ongoing edema were thought to be due to CHF as his recent renal function had been stable, he was without protein or blood, and BNP had been elevated. The patient had only been on 20 mg PO lasix daily at that time so his dose was increased to 40 mg daily. Of note, the patient had a US of the LUE obtained on 09/03/22 which was negative for DVT. He was seen by Dr. Ordoñez in the [facility] clinic for the same complaints on 09/04/22 and was instructed to take 40 mg lasix in the am and 20 mg HS over the holiday weekend with plans for FU this week. The patient was seen for FU in the [facility] clinic today and was sent to the ED for further evaluation as his swelling had not significantly improved. At the time of the exam the patient was lying in bed in no acute distress, history is difficult to obtain at times as the patient was unsure regarding certain details such as timing of symptoms. He states that he has been having issues with his BL LE swelling for many months. He confirms that he was initially on 20 mg PO lasix daily and had been increased to 40 mg PO daily on 09/03. He thought that he was supposed to be taking 40 mg BID of PO lasix after his Cardiology visit on 09/04 and had been taking that way since. He has not noticed a significant amount of improvement in any of his swelling since then. He states that he has not be urinating much, even with the increased diuretic doses recently. He is unsure of what a good dry weight is for him. He does not monitor his sodium or fluid intake and dose frequently eat canned food at home. Regarding his LUE swelling and left hand laceration. He is unsure if he first developed the swelling in the LUE before or after he experienced a left dorsal had laceration approximately a week ago. He states he was working at home and hit his hand on a piece of metal. He had clear drainage initially from the hand and denies any pain, bleeding, numbness/tingling, or weakness in the LUE since the injury. He has been experiencing SHAW which has continued to progress over the past 3-4 months, these symptoms improve with rest and have not occurred with rest. He states that the swelling in the LUE is slightly improved compared to last week. He has been taking his Eliquis BID as prescribed. He denies recent fever, chills, chest pain, cough, abd pain, nausea, vomiting, diarrhea, dysuria, hematuria, melena, and recent trauma. He is a full code and would want his Son to make medical decisions for him if he could not make them himself. Please refer to Dr. Aldana's attestation for any changes to the treatment plan Allergies Allergy/AdvReac Type Severity Reaction Status Date / Time No Known Allergies Allergy Verified 09/03/22 10:53 Home Medications Medication Instructions Recorded Confirmed Type bupropion HCl 150 mg tablet,12 hr 150 mg PO BID #180 ea 10/29/21 09/09/22 Rx sustained-release fluocinonide 0.05 % topical cream 1 applic topical BID PRN .rash 11/07/21 09/09/22 History atorvastatin 80 mg tablet 80 mg PO HS #90 tabs 03/28/22 09/09/22 Rx metoprolol succinate 50 mg 50 mg PO QAM #30 tabs 04/22/22 09/09/22 Rx tablet,extended release 24 hr omeprazole 20 mg capsule,delayed 20 mg PO DAILY #30 caps 04/22/22 09/09/22 Rx release apixaban 5 mg tablet 5 mg PO BID #180 tabs 04/24/22 09/09/22 Rx amiodarone 200 mg tablet 200 mg PO DAILY #90 tabs 05/12/22 09/09/22 Rx folic acid 400 mcg tablet 0.4 mg PO QAM 05/12/22 09/09/22 History lisinopril 20 mg tablet 20 mg PO BID #180 tabs 07/14/22 09/09/22 Rx levothyroxine 50 mcg tablet 50 mcg PO DAILY #90 tabs 08/27/22 09/09/22 Rx (Synthroid) furosemide 20 mg tablet 40 mg PO DAILY #60 tabs 09/03/22 09/09/22 Rx potassium chloride 10 mEq 10 meq PO DAILY #30 tabs 09/03/22 09/09/22 Rx tablet,extended release Past Med/Surg History Medical History (Updated 09/09/22 @ 20:57 by David Jordan PA-C) Acute pancreatitis Cervical radiculopathy COVID-19 Difficulty reading due to visual problem Encounter for pre-operative examination Former smoker History of snuff use Hyperhomocystinemia Hypertension Hyperthyroidism Left bundle branch block New onset atrial fibrillation Prediabetes Presence of combination internal cardiac defibrillator (ICD) and pacemaker 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, 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, clinical stage TIc Status post biopsies, biopsy stage TIIa Divine grade 3+3 Status post seed implant with cesium 131 as boost 12/08/2006 Status post completion of IMRT/IGRT 02/26/2007" Prostate cancer Pure hypercholesterolemia PVC (premature ventricular contraction) Thrombocytopenia Ventricular tachycardia Surgical History H/O aortic valve repair H/O hernia repair History of laparoscopic cholecystectomy (11/08/21) Status post aortic valve replacement with bioprosthetic valve Family History Mother Heart disease Brother Cancer Lung cancer Unknown Prostate cancer Father Prostate cancer Denies family history of Colon cancer Ovarian cancer Myocardial infarction Breast cancer Social History (Updated 08/27/22 @ 10:19 by ARELI Loyd) Smoking Status: Former smoker Tobacco Type: Cigarettes and Smokeless Tobacco (Dip or Chew) Age Started Using Tobacco: 8; Age Quit Using Tobacco: 75; packs per day: 2.5; Second Hand Exposure: No; Do You Dip or Chew Tobacco: No; Hx Alcohol Use: No Hx Substance Use: No Preferred Language: Arabic Communication Ability: Effective Visual Impairment: No Limitations Hearing Ability: Use of Hearing Aid Grade Checker Required: No Beliefs That Will Affect Care: Spiritual marital status: / Current Living Situation: Alone current occupational status: retired How many Children do You have: 2 Feels Safe at Home: Yes Childhood Exposure to Second-Hand Smoke: Yes Diet: regular Diet Comment: regular Dental Care, Regularly: No Physical Activity Frequency: Does not Exercise Seatbelt Use: never Sunscreen Use: No Do you think of yourself as: straight/heterosexual Assistive Devices: Cane Physical Exam Physical Exam: Physical Exam: General: In no acute distress, stated age, chronically ill appearing but non- toxic appearing HEENT: Normocephalic, atraumatic, no scleral icterus, pupils around round, symmetrical, and reactive to light, moist mucus membranes, trachea midline, no thyromegaly Chest/Pulm: No respiratory distress, symmetrical chest expansion, clear breath sounds throughout Cardiac: RRR, no murmurs noted Abdomen: Negative for bruising, normoactive bowel sounds, soft, non-tender to palpation throughout Musculoskeletal: No acute trauma on exam, patient with full ROM of the BL upper and lower extremities Extremities: RUE without swelling, LUE with significant dependent swelling up the entire arm, BL radial pulses are intact and symmetrical, patient with 3-4+ edema in the BL LE's which are firm to palpation, intact distal LE pulses and cap refill < 3 seconds Skin: Patient with small, well-healing laceration on the dorsal aspect of the left hand, the surrounding area is wihtout signs of acute infection, signs of chronic venous insufficiency in the BL LE's Neuro: Alert and oriented to person, place, month, year, and president, no focal defects, CN II-XII tested and intact, no tremors noted, symmetrical sensation and motor function in the BL upper extremities Psych: No acute distress, calm and cooperative during the exam Results & Data Results & Data Vital Signs (Past 12 Hours) Vital Signs Temp Pulse Pulse Resp BP BP Pulse Ox 09/09/22 18:37 75 20 142/96 H 95 09/09/22 17:34 77 09/09/22 17:29 73 20 140/103 H 99 09/09/22 14:22 36.3 C L 75 20 120/75 97 O2 Del Method 09/09/22 18:37 Room Air 09/09/22 17:34 09/09/22 17:29 Room Air 09/09/22 14:22 Room Air Laboratory Results Abnormal lab results 09/09/22 09/09/22 09/09/22 Range/Units 14:40 14:40 17:54 RBC 4.36 L (4.70-6.10) M/uL Hgb 12.7 L (14.0-18.0) g/dl Hct 38.4 L (42.0-52.0) % RDW Std Deviation 51.4 H (36.4-46.3) fL RDW Coeff of Yony 15.9 H (11.5-14.5) % Bell # (Auto) 0.67 H (0.11-0.59) K/uL BUN 45 H (6-23) mg/dl Creatinine 2.00 H (0.6-1.4) mg/dl BUN/Creatinine Ratio 22.5 H (10-20) Alkaline Phosphatase 132 H (34-104) U/L Troponin I High Sens 25.6 H (0-20) pg/ml B-Natriuretic Peptide (0-100) pg/ml 09/09/22 Range/Units 17:54 RBC (4.70-6.10) M/uL Hgb (14.0-18.0) g/dl Hct (42.0-52.0) % RDW Std Deviation (36.4-46.3) fL RDW Coeff of Yony (11.5-14.5) % Bell # (Auto) (0.11-0.59) K/uL BUN (6-23) mg/dl Creatinine (0.6-1.4) mg/dl BUN/Creatinine Ratio (10-20) Alkaline Phosphatase (34-104) U/L Troponin I High Sens (0-20) pg/ml B-Natriuretic Peptide 690 H (0-100) pg/ml Diagnostic Findings Chest X-Ray 09/09/22 17:27 SINGLE VIEW CHEST CLINICAL HISTORY: Dyspnea. FINDINGS: 2 AP, portable, upright chest radiographs are compared to study dated 04/13/2022. The patient is status post midline sternotomy and cardiac valve surgery. A 3-lead cardiac AICD is unchanged in position. The heart is enlarged noting atherosclerotic calcification of the thoracic aorta. The pulmonary vasculature is noncongested. There is mild elevation of the right hemidiaphragm with bibasilar scarring/atelectasis. No airspace consolidation or large pleural effusion is identified. No pneumothorax is seen. The skeletal structures are osteopenic. The bony thorax is grossly intact. IMPRESSION: 1. Cardiomegaly and AICD without radiographic evidence of congestive failure. 2. No airspace consolidation or large pleural effusion is identified. ACT 112: Negative or not required by law. Electronically signed by: Maikel Davies M.D. 09/09/2022 6:54 PM Hand X-Ray 09/09/22 17:32 LEFT HAND 3 VIEWS CLINICAL HISTORY: Left hand injury. FINDINGS: 3 views of the left hand are obtained. No prior studies are available for comparison at the time of dictation. The skeletal structures are osteopenic. No fracture is seen. 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 This is greatest at the first carpometacarpal and metacarpophalangeal joints. Significant soft tissue tissue edema is present throughout the wrist and hand, greatest dorsally. IMPRESSION: Soft tissue swelling with no fracture identified. If there is clinical concern for occult fracture consider short-term radiographic follow-up. Electronically signed by: Maikel Davies M.D. 09/09/2022 6:56 PM ECG Additional Comments: AV dual-paced rhythm with occasional ventricular-paced complexes Biventricular pacemaker detected Abnormal ECG When compared with ECG of 14-APR-2022 15:41, No significant change was found Code Status & VTE Plan Code Status Full code VTE Prophylaxis Plan VTE Prophylaxis will be ordered: Yes PG Care Time/CCT Total # of Minutes Spent Total Time Spent with Patient: Total time spent is greater than 50% in coordination of care (as documented) at patient's floor/unit and/or counseling patient: Coding [place] [address] INT INP/OBS CARE 3/75MIN Patient Type Established History Comprehensive Exam Comprehensive Medical Decision Making High Complexity Diagnoses Swelling of both lower extremities M79.89 Left upper extremity swelling M79.89 Elevated troponin R77.8 CKD (chronic kidney disease) N18.9 Hypothyroidism E03.2 Hypothyroidism type: due to medication Hypertension I10 Hypertension type: essential hypertension Atrial fibrillation I48.91 Acid reflux disease K21.9 Esophagitis presence: without esophagitis Depression F32.0 Depression Type: major depressive disorder Major depression recurrence: single episode Active/Remission status: currently active Major depression episode severity: mild (5) Hypothyroidism Hypothyroidism type: due to medication Qualified Code(s): E03.2 - Hypothyroidism due to medicaments and other exogenous substances (6) Hypertension Hypertension type: essential hypertension Qualified Code(s): I10 - Essential (primary) hypertension (8) Acid reflux disease Esophagitis presence: without esophagitis Qualified Code(s): K21.9 - Gastro- esophageal reflux disease without esophagitis (9) Depression Depression Type: major depressive disorder Major depression recurrence: single episode Active/Remission status: currently active Major depression e pisode severity: mild Qualified Code(s): F32.0 - Major depressive disorder, single episode, mild
--- NOTE | 2022-09-09 21:22 | Emergency Department Note ---
History of Present Illness General Chief complaint: Swelling/Edema to Extremity Stated complaint: EDEMA TO EXTREMITIS Time Seen by Provider: 09/09/22 17:22 History of Present Illness Provider complaint: Swelling Onset (ago): week(s) 1 81-year-old male presents emergency department for swelling. Patient does have a history of congestive heart failure. Patient is on Eliquis. Patient reported swelling in his bilateral lower extremities and his left upper extremity. He denies any chest pain. Does report some shortness of breath. Patient states that he hit his hand on a pole 4 days ago. Home Medications Medication Instructions Recorded Confirmed Type bupropion HCl 150 mg tablet,12 hr 150 mg PO BID #180 ea 10/29/21 09/09/22 Rx sustained-release fluocinonide 0.05 % topical cream 1 applic topical BID PRN .rash 11/07/21 09/09/22 History atorvastatin 80 mg tablet 80 mg PO HS #90 tabs 03/28/22 09/09/22 Rx metoprolol succinate 50 mg 50 mg PO QAM #30 tabs 04/22/22 09/09/22 Rx tablet,extended release 24 hr omeprazole 20 mg capsule,delayed 20 mg PO DAILY #30 caps 04/22/22 09/09/22 Rx release apixaban 5 mg tablet 5 mg PO BID #180 tabs 04/24/22 09/09/22 Rx amiodarone 200 mg tablet 200 mg PO DAILY #90 tabs 05/12/22 09/09/22 Rx folic acid 400 mcg tablet 0.4 mg PO QAM 05/12/22 09/09/22 History lisinopril 20 mg tablet 20 mg PO BID #180 tabs 07/14/22 09/09/22 Rx levothyroxine 50 mcg tablet 50 mcg PO DAILY #90 tabs 08/27/22 09/09/22 Rx (Synthroid) furosemide 20 mg tablet 40 mg PO DAILY #60 tabs 09/03/22 09/09/22 Rx potassium chloride 10 mEq 10 meq PO DAILY #30 tabs 09/03/22 09/09/22 Rx tablet,extended release Allergies Allergy/AdvReac Type Severity Reaction Status Date / Time No Known Allergies Allergy Verified 09/03/22 10:53 Past Med/Surg History Medical History Acute pancreatitis Cervical radiculopathy COVID-19 Difficulty reading due to visual problem Encounter for pre-operative examination Former smoker History of snuff use Hyperhomocystinemia Hypertension Hyperthyroidism Left bundle branch block New onset atrial fibrillation Prediabetes Presence of combination internal cardiac defibrillator (ICD) and pacemaker 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, 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, clinical stage TIc Status post biopsies, biopsy stage TIIa [place] grade 3+3 Status post seed implant with cesium 131 as boost 12/08/2006 Status post completion of IMRT/IGRT 02/26/2007" Prostate cancer Pure hypercholesterolemia PVC (premature ventricular contraction) Thrombocytopenia Ventricular tachycardia Surgical History H/O aortic valve repair H/O hernia repair History of laparoscopic cholecystectomy (11/08/21) lap ish/ercp Nov 01 Chambers Status post aortic valve replacement with bioprosthetic valve Family History Mother Heart disease Brother Cancer Lung cancer Unknown Prostate cancer Father Prostate cancer Denies family history of Colon cancer Ovarian cancer Myocardial infarction Breast cancer Social History Smoking Status: Former smoker Tobacco Type: Cigarettes and Smokeless Tobacco (Dip or Chew) Age Started Using Tobacco: 8; Age Quit Using Tobacco: 75; packs per day: 2.5; Second Hand Exposure: No; Do You Dip or Chew Tobacco: No; Hx Alcohol Use: No Hx Substance Use: No Preferred Language: Bahamian Communication Ability: Effective Visual Impairment: No Limitations Hearing Ability: Use of Hearing Aid Ticket Dispenser Changer Required: No Beliefs That Will Affect Care: Spiritual marital status: / Current Living Situation: Alone current occupational status: retired How many Children do You have: 2 Feels Safe at Home: Yes Childhood Exposure to Second-Hand Smoke: Yes Diet: regular Diet Comment: regular Dental Care, Regularly: No Physical Activity Frequency: Does not Exercise Seatbelt Use: never Sunscreen Use: No Do you think of yourself as: straight/heterosexual Assistive Devices: Cane Physical Exam Vital Signs Vital Signs - 24 hr 09/09/22 14:22 09/09/22 17:29 09/09/22 17:34 Temperature 36.3 C L Temperature Source Temporal Artery Scan Pulse Rate 75 77 Pulse Rate [Apical] 73 Respiratory Rate 20 20 Respiratory Effort / Characteristics Non-Labored Spontaneous Respiratory Depth Normal Blood Pressure 120/75 Blood Pressure [Right Arm] 140/103 H Blood Pressure Mean 90 Blood Pressure Mean [Right Arm] 115 Blood Pressure Position [Right Arm] Sitting Pulse Oximetry 97 99 Oxygen Delivery Method Room Air Room Air Sepsis Recent Fever Within 48 Hours No Sepsis New/Unexplained Change in Mental Status N/A Sepsis Action Taken by Nursing No Action Required 09/09/22 18:37 09/09/22 19:13 09/09/22 20:00 Temperature Temperature Source Pulse Rate Pulse Rate [Apical] 75 74 79 Respiratory Rate 20 18 18 Respiratory Effort / Characteristics Respiratory Depth Blood Pressure Blood Pressure [Right Arm] 142/96 H 138/96 149/89 H Blood Pressure Mean Blood Pressure Mean [Right Arm] 111 110 109 Blood Pressure Position [Right Arm] Sitting Pulse Oximetry 95 97 96 Oxygen Delivery Method Room Air Room Air Room Air Sepsis Recent Fever Within 48 Hours Sepsis New/Unexplained Change in Mental Status Sepsis Action Taken by Nursing Physical Exam HENT: Exam performed. - Head: Normocephalic and atraumatic. - Right Ear: External ear normal. No mastoid erythema - Left Ear: External ear normal. No mastoid erythema EYES: Conjunctivae and EOM are normal. Pupils are equal, round, and reactive to light. Right eye exhibits no discharge. Left eye exhibits no discharge. No scleral icterus. NECK: Normal range of motion. Neck supple. No JVD present. No spinous process tenderness present. No tracheal deviation and normal range of motion present. CV: Normal rate, regular rhythm, normal heart sounds and intact distal pulses. Palpable radial pulses bue. PULM/CHEST: Rales bilaterally. MUSC/SKEL: Normal range of motion. There is no tenderness or deformity. 3+ pitting edema of the bilateral lower extremities. 2+ pitting edema of the left upper extremity. Palpable radial pulses bilaterally. NEURO: Motor and sensation grossly intact. Course Course 1721: The patient was evaluated in room C7. A complete history and physical exam was performed Cardiac monitoring: An order was placed for continuous cardiac monitoring. The monitor shows a rate of 70 with paced rhythm interpreted by mt 1950: Vital signs stable. White blood cell count 6.83 hemoglobin 12.7. Creatinine up to 2. Over the last 2 weeks the patient's creatinine is increased from 1.76 to 2. Patient's troponin is elevated at 25.6. BNP is elevated at 690. Hand x-ray negative for fracture. External medical records reviewed. Patient was seen by PCP Dr. Lisha GILL on September 03, 2022. During that visit it was reported that the patient was having fluid overload and edema to his bilateral lower extremities and left arm. An ultrasound was performed outpatient which was within normal limits. The patient's baseline creatinine is 1.4-1.7. The patient did not get a significant response from frusemide 20 mg daily and there is discussion about switching the patient to Bumex versus torsemide or increasing the Lasix. Ultimately the PCP decided to increase the patient's Lasix to 40 mg daily. Given the patient has not had any significant response to the increased Lasix and that worsening kidney function, the patient be given Bumex in the emergency department. Discussed the case with David Jordan PA-C who will evaluate the patient for admission Administered Medications Discontinued Medications Bumetanide 1 mg/ Syringe 4 mls @ 4 mls/min IV ONE ONE Stop: 09/09/22 19:08 Last Admin: 09/09/22 20:18 Dose: 4 mls/min Documented By: KRISTINE Medical Decision Making Medical Records Attestation: I reviewed the patient's medical records. External medical records reviewed. Patient was seen by PCP Dr. Lisha GILL on September 03, 2022. During that visit it was reported that the patient was having fluid overload and edema to his bilateral lower extremities and left arm. An ultrasound was performed outpatient which was within normal limits. The patient's baseline creatinine is 1.4-1.7. The patient did not get a significant response from frusemide 20 mg daily and there is discussion about switching the patient to Bumex versus torsemide or increasing the Lasix. Ultimately the PCP decided to increase the patient's Lasix to 40 mg daily. Laboratory Data Attestation: I reviewed the patient's lab results. 09/09/22 14:40 09/09/22 14:40 Lab Results 09/09/22 09/09/22 09/09/22 Range/Units 14:40 14:40 17:54 WBC 6.83 (4.8-10.8) K/ul RBC 4.36 L (4.70-6.10) M/uL Hgb 12.7 L (14.0-18.0) g/dl Hct 38.4 L (42.0-52.0) % MCV 88.1 (80.0-100.0) fL MCH 29.1 (25.0-34.0) pg MCHC 33.1 (32.0-36.0) g/dL RDW Std Deviation 51.4 H (36.4-46.3) fL RDW Coeff of Yony 15.9 H (11.5-14.5) % Plt Count 173 (130-400) K/uL MPV 12.4 (9.4-12.4) fL Immature Gran % (Auto) 0.1 % Neut % (Auto) 68.8 % Lymph % (Auto) 18.4 % Wirt % (Auto) 9.8 % Eos % (Auto) 2.2 % Baso % (Auto) 0.7 % Neut # (Auto) 4.69 (1.40-6.50) K/uL Lymph # (Auto) 1.26 (1.2-3.4) K/uL Wirt # (Auto) 0.67 H (0.11-0.59) K/uL Eos # (Auto) 0.15 (0-0.50) K/uL Baso # (Auto) 0.05 (0-0.2) K/uL Immature Gran # (Auto) 0.01 (0.01-0.20) K/uL Sodium 139 (136-145) mmol/L Potassium 4.0 (3.5-5.1) mmol/L Chloride 102 (98-107) mmol/L Carbon Dioxide 31 (21-32) mmol/L Anion Gap 6 (3-11) BUN 45 H (6-23) mg/dl Creatinine 2.00 H (0.6-1.4) mg/dl Est Cr Clr Drug Dosing 33.3 ml/min Est GFR ( Amer) 34.7 ml/min Est GFR (Non-Af Amer) 30.0 ml/min BUN/Creatinine Ratio 22.5 H (10-20) Glucose 90 (70-99(Fasting)) mg/dl Calcium 8.8 (8.6-10.3) mg/dl Total Bilirubin 0.8 (0.2-1.0) mg/dl AST 23 (13-39) U/L ALT 27 (7-52) U/L Alkaline Phosphatase 132 H (34-104) U/L Troponin I High Sens 25.6 H (0-20) pg/ml B-Natriuretic Peptide (0-100) pg/ml Total Protein 7.8 (6.0-8.3) gm/dl Albumin 3.9 (3.4-5.0) gm/dl Globulin 3.9 (2.5-4.0) gm/dl Albumin/Globulin Ratio 1.0 (0.9-2) 09/09/22 Range/Units 17:54 WBC (4.8-10.8) K/ul RBC (4.70-6.10) M/uL Hgb (14.0-18.0) g/dl Hct (42.0-52.0) % MCV (80.0-100.0) fL MCH (25.0-34.0) pg MCHC (32.0-36.0) g/dL RDW Std Deviation (36.4-46.3) fL RDW Coeff of Yony (11.5-14.5) % Plt Count (130-400) K/uL MPV (9.4-12.4) fL Immature Gran % (Auto) % Neut % (Auto) % Lymph % (Auto) % Wirt % (Auto) % Eos % (Auto) % Baso % (Auto) % Neut # (Auto) (1.40-6.50) K/uL Lymph # (Auto) (1.2-3.4) K/uL Wirt # (Auto) (0.11-0.59) K/uL Eos # (Auto) (0-0.50) K/uL Baso # (Auto) (0-0.2) K/uL Immature Gran # (Auto) (0.01-0.20) K/uL Sodium (136-145) mmol/L Potassium (3.5-5.1) mmol/L Chloride (98-107) mmol/L Carbon Dioxide (21-32) mmol/L Anion Gap (3-11) BUN (6-23) mg/dl Creatinine (0.6-1.4) mg/dl Est Cr Clr Drug Dosing ml/min Est GFR ( Amer) ml/min Est GFR (Non-Af Amer) ml/min BUN/Creatinine Ratio (10-20) Glucose (70-99(Fasting)) mg/dl Calcium (8.6-10.3) mg/dl Total Bilirubin (0.2-1.0) mg/dl AST (13-39) U/L ALT (7-52) U/L Alkaline Phosphatase (34-104) U/L Troponin I High Sens (0-20) pg/ml B-Natriuretic Peptide 690 H (0-100) pg/ml Total Protein (6.0-8.3) gm/dl Albumin (3.4-5.0) gm/dl Globulin (2.5-4.0) gm/dl Albumin/Globulin Ratio (0.9-2) Imaging Data Attestation: I personally reviewed and interpreted this imaging study as fol lows: My Impression: Left hand x-ray: No acute fracture or dislocation Radiologist's Impression: Chest X-Ray 09/09/22 17:27 SINGLE VIEW CHEST CLINICAL HISTORY: Dyspnea. FINDINGS: 2 AP, portable, upright chest radiographs are compared to study dated 04/13/2022. The patient is status post midline sternotomy and cardiac valve surgery. A 3-lead cardiac AICD is unchanged in position. The heart is enlarged noting atherosclerotic calcification of the thoracic aorta. The pulmonary vasculature is noncongested. There is mild elevation of the right hemidiaphragm with bibasilar scarring/atelectasis. No airspace consolidation or large pleural effusion is identified. No pneumothorax is seen. The skeletal structures are osteopenic. The bony thorax is grossly intact. IMPRESSION: 1. Cardiomegaly and AICD without radiographic evidence of congestive failure. 2. No airspace consolidation or large pleural effusion is identified. ACT 112: Negative or not required by law. Electronically signed by: Maikel Davies M.D. 09/09/2022 6:54 PM Hand X-Ray 09/09/22 17:32 LEFT HAND 3 VIEWS CLINICAL HISTORY: Left hand injury. FINDINGS: 3 views of the left hand are obtained. No prior studies are available for comparison at the time of dictation. The skeletal structures are osteopenic. No fracture is seen. 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 This is greatest at the first carpometacarpal and metacarpophalangeal joints. Significant soft tissue tissue edema is present throughout the wrist and hand, greatest dorsally. IMPRESSION: Soft tissue swelling with no fracture identified. If there is cli nical concern for occult fracture consider short-term radiographic follow-up. Electronically signed by: Maikel Davies M.D. 09/09/2022 6:56 PM ECG Data Attestation: I personally reviewed and interpreted this ECG as follows: Additional Comments: Paced rhythm with rate of 75. [place] 128 QRS 24 QTc 562. No ectopy [facility] Narrative 1722: The patient was evaluated in room C7. A complete history and physical exam was performed Cardiac monitoring: An order was placed for continuous cardiac monitoring. The monitor shows a rate of 70 with paced rhythm interpreted by me 1950: Vital signs stable. White blood cell count 6.83 hemoglobin 12.7. Creatinine up to 2. Over the last 2 weeks the patient's creatinine is increased from 1.76 to 2. Patient's troponin is elevated at 25.6. BNP is elevated at 690. Hand x-ray negative for fracture. External medical records reviewed. Patient was seen by PCP Dr. Lisha GILL on September 03, 2022. During that visit it was reported that the patient was having fluid overload and edema to his bilateral lower extremities and left arm. An ultrasound was performed outpatient which was within normal limits. The patient's baseline creatinine is 1.4-1.7. The patient did not get a significant response from frusemide 20 mg da bryan and there is discussion about switching the patient to Bumex versus torsemide or increasing the Lasix. Ultimately the PCP decided to increase the patient's Lasix to 40 mg daily. Given the patient has not had any significant response to the increased Lasix and that worsening kidney function, the patient be given Bumex in the emergency department. Discussed the case with David Jordan PA-C who will evaluate the patient for admission Impression & Plan Fluid overload Discharge Plan Visit Data Chief Complaint: Swelling/Edema to Extremity Stated Complaint: EDEMA TO EXTREMITIS ED Provider: Roni Braswell Discharge Problem: Fluid overload Patient Disposition: Admitted As Inpatient Forms Stand Alone Forms: My [facility] Prescriptions Prescriptions: No Action bupropion HCl 150 mg tablet sustained-release 12 hr 150 mg PO BID Qty: 180 2RF atorvastatin 80 mg tablet 80 mg PO HS Qty: 90 3RF metoprolol succinate 50 mg tablet extended release 24 hr 50 mg PO QAM Qty: 30 0RF omeprazole 20 mg capsule,delayed release(DR/EC) 20 mg PO DAILY Qty: 30 2RF lisinopril 20 mg tablet 20 mg PO BID Qty: 180 1RF levothyroxine [Synthroid] 50 mcg tablet 50 mcg PO DAILY Qty: 90 1RF Rx Instructions: Take first thing in the morning on an empty stomach with an 8 oz glass of water. Do not eat or take other medications for 30 minutes. apixaban 5 mg tablet 5 mg PO BID Qty: 180 3RF furosemide 20 mg tablet 40 mg PO DAILY Qty: 60 0RF potassium chloride 10 mEq tablet extended release 10 meq PO DAILY Qty: 30 2RF amiodarone 200 mg tablet 200 mg PO DAILY Qty: 90 3RF fluocinonide 0.05 % Cream 1 applic TOPICAL BID PRN (Reason: .rash) folic acid 400 mcg tablet 0.4 mg PO QAM Referrals Referrals: Juan Manuel Early III, CRNP [Primary Care Provider] -
[2022-09-09 21:24] LABS: C Reactive Protein 0.54 mg/dl (0-0.5)
[2022-09-09 21:26] LABS: Total Protein Urine Random 22.4 mg/dl (0-11.9)
[2022-09-09 21:30] LABS: Troponin I High Sensitivity 24.5 pg/ml (0-20)
[2022-09-09 21:31] LABS: Potassium Random Urine 55.4 mmol/L
[2022-09-09 21:32] LABS: Appearance Urine Clear (Clear); Bilirubin Urine Negative (Negative); Blood Urine Negative (Negative); Color Urine Yellow; Creatinine Urine Random 163.4 mg/dl; Glucose Urine UA Negative (Negative); Ketones Urine Trace (Negative); Leukocyte Esterase Urine Negative (Negative); Nitrite Urine Negative (Negative); Protein Creatinine Ratio Urine 0.1 (0-0.2); Protein Urine Negative (Negative); Specific Gravity Urine 1.021 (1.000-1.030); Urobilinogen Urine Negative (Negative); pH Urine 6.5 (4.5-7.5)
--- NOTE | 2022-09-09 21:52 | CT Scan Report ---
Exam(s): CT EXTREMITY LEFT UPPER Without Contrast EXAM: CT Left Upper Extremity Without Intravenous Contrast CLINICAL HISTORY: Reason for exam: significant LUE swelling, negative US outpatient. TECHNIQUE: Axial computed tomography images of the left upper extremity without intravenous contrast. Automated exposure control was utilized for the study. A dose lowering technique was utilized adhering to the principles of ALARA. COMPARISON: No relevant prior studies available. FINDINGS: Bones/joints: No acute fracture of the radius or ulna. Normal radiocapitellar and ulnohumeral articulations, for the patient's age. No distal radius fracture. Intact distal ulna. Soft tissues: Severe generalized soft tissue swelling/anasarca. No fluid collection or abscess. IMPRESSION: Severe generalized soft tissue swelling/anasarca. No fluid collection or abscess. Electronically signed by: Carlos A Castillo MD 09/09/22 21:52 PM
--- NOTE | 2022-09-09 21:55 | CT Scan Report ---
Exam(s): CT CHEST Without Contrast EXAM: CT Chest Without Intravenous Contrast CLINICAL HISTORY: Reason for exam: progressive swelling, monitor for obstructive mass. TECHNIQUE: Axial computed tomography images of the chest without intravenous contrast. Automated exposure control was utilized for the study. A dose lowering technique was utilized adhering to the principles of ALARA. COMPARISON: No relevant prior studies available. FINDINGS: Lungs: Unremarkable. No mass. No consolidation. Pleural space: Unremarkable. No pneumothorax. No significant effusion. Heart: Cardiomegaly. Calcified aorta and coronary arteries. No significant pericardial effusion. 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 This may be contributing to vascular occlusion. CTA of the chest and LEFT upper extremity are recommended. In addition, consider LEFT shoulder MRI to evaluate this large, insinuating lipoma. Sternotomy wires. Degenerative changes of the spine. No acute fracture. No dislocation. Soft tissues: Severe subcutaneous edema of the LEFT upper extremity. Vasculature: See above. Lymph nodes: Unremarkable. No enlarged lymph nodes. Tubes, lines and devices: Pacemaker leads. IMPRESSION: 1. 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 This may be contributing to vascular occlusion. CTA of the chest and LEFT upper extremity are recommended. 2. In addition, consider LEFT shoulder MRI to evaluate this large, insinuating lipoma. Electronically signed by: Carlos A Castillo MD 09/09/22 21:54 PM
--- NOTE | 2022-09-09 21:55 | CT Scan Report ---
Exam(s): CT ABDOMEN + PELVIS Without Contrast EXAM: CT Abdomen and Pelvis Without Intravenous Contrast CLINICAL HISTORY: Reason for exam: BL LE and LUE swelling, rule out obstructive mass. TECHNIQUE: Axial computed tomography images of the abdomen and pelvis without intravenous contrast. Automated exposure control was utilized for the study. A dose lowering technique was utilized adhering to the principles of ALARA. COMPARISON: No relevant prior studies available. FINDINGS: Lung bases: Unremarkable. No mass. No consolidation. ABDOMEN: Liver: Unremarkable. Gallbladder and bile ducts: Unremarkable. No calcified stones. No ductal dilation. Pancreas: Unremarkable. No ductal dilation. Spleen: Unremarkable. No splenomegaly. Adrenals: Unremarkable. No mass. Kidneys and ureters: Unremarkable. No obstructing stones. No hydronephrosis. Stomach and bowel: Diverticulosis, without acute diverticulitis. No small bowel obstruction. No free intraperitoneal air. PELVIS: Appendix: Normal appendix. Bladder: RIGHT bladder diverticulum measures approximately 3.1 x 1.5 cm. No stones. Reproductive: Prostate fiduciary markers. ABDOMEN and PELVIS: Intraperitoneal space: Unremarkable. No free air. No significant fluid collection. Bones/joints: Degenerative changes of the spine. No acute fracture. No dislocation. Soft tissues: Small fat-containing RIGHT inguinal hernia. Anasarca. Vasculature: Atherosclerotic changes of the aorta. No abdominal aortic aneurysm. Lymph nodes: Unremarkable. No enlarged lymph nodes. IMPRESSION: No acute findings in the abdomen or pelvis. Electronically signed by: Carlos A Castillo MD 09/09/22 21:55 PM
--- NOTE | 2022-09-09 22:18 | CT Scan Report ---
Exam(s): CT EXTREMITY LEFT UPPER Without Contrast EXAM: CT Left Upper Extremity Without Intravenous Contrast - Humerus CLINICAL HISTORY: Reason for exam: significant LUE swelling, negative US for DVT. TECHNIQUE: Axial computed tomography images of the left upper extremity without intravenous contrast. Automated exposure control was utilized for the study. A dose lowering technique was utilized adhering to the principles of ALARA. COMPARISON: No relevant prior studies available. FINDINGS: Bones/joints: Osseous demineralization. No acute fracture or dislocation. Soft tissues: Lipoma in the LEFT shoulder, insinuating between the spinal glenoid notch, and occupying the locations of the axilla, supraspinatus, and if her status. This may be contributing to vascular occlusion. LEFT shoulder MRI and CTA LEFT upper extremity and chest recommended. Diffuse subcutaneous edema of the LEFT upper extremity. 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 This may be contributing to vascular occlusion. LEFT shoulder MRI and CTA LEFT upper extremity and chest recommended. Electronically signed by: Carlos A Castillo MD 09/09/22 22:17 PM
[2022-09-09] MEDS ORDERED: ATORVASTATIN 40 MG TAB PO SCH (22:36)
[2022-09-09] MEDS: APIXABAN 5 MG TABLET PO SCH (23:59)
[2022-09-09] MEDS: buPROPion SR 150 MG TABCR PO SCH (23:59)
[2022-09-10] MEDS: LEVOTHYROXINE SODIUM 50 MCG TABLET PO SCH (05:55)
--- NOTE | 2022-09-10 07:54 | Hospitalist Progress Note ---
Date of Service September 10, 2022 Assessment & Plan (1) Swelling of both lower extremities: Plan: ongoing issues with BL LE and LUE swelling, has been followed by his PCP and [employer] without improvement after increasing his diuretics recently Imaging is not revealing except for lipoma that maybe contributing to vascular occlusion, CXR without CHF Cardiology and Nephrology consults -S/P 1 mg IV Bumex in the ED, will hold additional diuretics julio wraps on the BL LE's to assist with diuresis and swelling -Home eliquis for DVT PPX Venous insufficiency of bilateral lower extremities Possible right sided systolic CHF - (2) Left upper extremity swelling: Plan: CT with lipoma that maybe causing vascular compromise negative US of the LUE for DVT on Patient did have a puncture wound to the dorsum of his left hand a few days prior to coming in. This is with a metal object that was necessarily sterile necessarily soiled. To this end because he has both aortic valve and a defibrillator pacemaker blood cultures were obtained by cardiology. We will start Zosyn therapy. We will check inflammatory markers in the morning. We will add daptomycin to cover MRSA check MRSA nasal swab hopefully de-escalate the daptomycin based upon clinical improvement and reevaluation of inflammatory markers (3) Atrial fibrillation: Plan: -HR currently rate controlled with pacemaker/AICD, AICD was placed for V. tach in the past -Continue continue amiodarone and metoprolol Troponin elevated 25 repeat 25 likely this is patient has mild elevation in troponin or acute coronary syndrome if anything might be demand ischemia could be from renal failure Chronic stable hypertension treated with metoprolol Last echocardiogram shows intact ejection fraction with bioprosthetic aortic valve without significant prosthetic regurgitation (4) CKD (chronic kidney disease): Plan: -Acute kidney injury on chronic kidney disease stage III (5) Hypothyroidism: Plan: -Continue levothyroxine (6) Depression: Plan: -Continue wellbutrin Admission and Anticipated Discharge Date Admission Date: September 09, 2022 Subjective pt has significant arm swelling, and bilateral leg swelling, did have puncture wound to his left hand a few days ago, does have some swelling but not purulent discharge. cardiology started scheduled diuretic, ordered blood cultures with both device and Aortic valve discussed case with ortho will start antibiotic and check inflammatory markers Physical Exam Physical Exam: Significant left arm swelling no fluctuance no axillary lymphadenopathy cannot palpate lymph node or lipoma as described Device in left upper chest is nontender Card exam is regular with a systolic murmur Both lower extremities have more of a woody or firm type of swelling which leads me to believe this is chronic Results & Data Results & Data Vital Signs (Past 12 Hours) Vital Signs Temp Pulse Pulse Pulse Resp BP Pulse Ox 09/10/22 07:28 97.2 F L 77 20 115/81 96 09/10/22 04:09 97.9 F 78 18 108/74 96 09/10/22 00:51 74 09/10/22 00:10 09/09/22 23:33 97.9 F 76 18 131/83 96 09/09/22 22:12 76 18 136/92 97 09/09/22 21:32 75 09/09/22 20:00 79 18 149/89 H 96 O2 Del Method 09/10/22 07:28 Room Air 09/10/22 04:09 Room Air 09/10/22 00:51 09/10/22 00:10 Room Air 09/09/22 23:33 Room Air 09/09/22 22:12 Room Air 09/09/22 21:32 09/09/22 20:00 Room Air Laboratory Results reviewed CBC reviewed PRP PG Care Time/CCT Total # of Minutes Spent Total Time Spent with Patient: Total time spent is greater than 50% in coordination of care (as documented) at patient's floor/unit and/or counseling patient: Coding Level of Care Code 09923 SUB INP/OBS CARE 3/50MIN Diagnoses Swelling of both lower extremities M79.89 Left upper extremity swelling M79.89 Atrial fibrillation I48.91 CKD (chronic kidney disease) N18.9 Hypothyroidism E03.2 Hypothyroidism type: due to medication Depression F32.0 Active/Remission status: currently active Depression Type: major depressive disorder Major depression episode severity: mild Major depression recurrence: single episode (5) Hypothyroidism Hypothyroidism type: due to medication Qualified Code(s): E03.2 - Hypothyroidism due to medicaments and other exogenous substances (6) Depression Active/Remission status: currently active Depression Type: major depressive disorder Major depression episode severity: mild Major depression recurrence: single episode Qualified Code(s): F32.0 - Major depressive disorder, single episode, mild
--- NOTE | 2022-09-10 08:17 | Electrocardiogram Report ---
Test Reason : Blood Pressure : / mmHG Vent. Rate : 075 BPM Atrial Rate : 089 BPM P-R Int : 128 ms QRS Dur : 184 ms QT Int : 504 ms P-R-T Axes : 000 262 086 degrees QTc Int : 562 ms AV dual-paced rhythm with occasional ventricular-paced complexes Biventricular pacemaker detected Abnormal ECG When compared with ECG of 14-APR-2022 15:41, No significant change was found Confirmed by Eriberto Ratliff ([id number]) on 09/10/2022 8:17:04 AM Referred By: REFERRED SELF Confirmed By:Eriberto Ratliff
[2022-09-10] MEDS: buPROPion SR 150 MG TABCR PO SCH ×2 (08:56→20:47)
[2022-09-10] MEDS: METOPROLOL SUCC 50MG EXT REL TAB PO SCH (08:56)
[2022-09-10] MEDS: APIXABAN 5 MG TABLET PO SCH ×2 (08:56→20:47)
[2022-09-10] MEDS: PANTOprazole 40 MG TAB PO SCH (08:57)
[2022-09-10] MEDS ORDERED: POTASSIUM CHLORIDE 10 MEQ TABCR PO SCH (09:00)
[2022-09-10] MEDS ORDERED: AMIODARONE 200 MG TAB PO SCH (09:00)
[2022-09-10 09:48] LABS: Basophils # (auto) 0.05 K/uL (0-0.2); Basophils % (auto) 0.9 %; Eosinophils # (auto) 0.23 K/uL (0-0.50); Hematocrit (blood only) 38.1 % (42.0-52.0); Hemoglobin 12.3 g/dl (14.0-18.0); Immature Granulocytes # (auto) 0.02 K/uL (0.01-0.20); Immature Granulocytes % (auto) 0.3 %; Lymphocytes # (auto) 1.13 K/uL (1.2-3.4); Lymphocytes % (auto) 19.7 %; Mean Corpuscular Hemoglobin 29.1 pg (25.0-34.0); Mean Corpuscular Hgb Conc 32.3 g/dL (32.0-36.0); Mean Corpuscular Volume 90.3 fL (80.0-100.0); Mean Platelet Volume 12.5 fL (9.4-12.4); Monocytes # (auto) 0.69 K/uL (0.11-0.59); Neutrophils # (auto) 3.63 K/uL (1.40-6.50); Neutrophils % (auto) 63.1 %; Platelet Count 168 K/uL (130-400); RDW Standard Deviation 52.8 fL (36.4-46.3); Red Blood Count 4.22 M/uL (4.70-6.10); White Blood Count 5.75 K/ul (4.8-10.8)
[2022-09-10 10:51] LABS: Albumin Level 3.5 gm/dl (3.4-5.0); BUN Creatinine Ratio 24.2 (10-20); Bilirubin,Total 0.8 mg/dl (0.2-1.0); Calcium 8.8 mg/dl (8.6-10.3); Creatinine Clr Calc Pharmacy 36.4 ml/min; Est GFR (African American) 38.9 ml/min; Est GFR (Non-African American) 33.6 ml/min; Globulin 3.6 gm/dl (2.5-4.0); Potassium 4.1 mmol/L (3.5-5.1); Total Protein 7.1 gm/dl (6.0-8.3)
--- NOTE | 2022-09-10 11:07 | Cardiology Consultation ---
Date of Consultation September 10, 2022 Assessment & Plan (1) Heart failure, diastolic, with acute decompensation: Continue IV Bumex. Add low dose, given altered kidney function, spironolactone, 12.5 mg/day. Hold potassium chloride. Daily metabolic panels. Sodium restrict to 1,500 mg/day. Monitor I/O's and daily weights on the same standing scale. (2) Ventricular tachycardia: Continue metoprolol succinate at 50 mg/day Increase amiodarone to 200 mg twice a day Formal device interrogation ([employer] aware) (3) Left upper extremity swelling: Appears secondary to volume overload from HFpEF and lymphedematous change/vein congestion from device. Diuretics as above. Repeat LUE duplex. Compression sleeve. (4) Renal dysfunction: Follow. Nephrology consultation pending. (5) Nonobstructive atherosclerosis of coronary artery: Continue medical management. (6) S/P AVR (aortic valve replacement): Status post April 24, 2010 AVR with a 23 mm Rodri-Dockery Magna bioprosthesis by Dr. [place] koch, [facility] Check blood cultures x 2 given left hand injury. Refer for resting echocardiography Supervising Physician Co-Signing Physician Notes I have reviewed the advance practitioner documentation and agree. I saw and evaluated the patient on the date of service referenced in the note and have performed a medically appropriate history and or exam. I agree with IV diuretics and a follow-up ultrasound of the left upper extremity. Some of the left upper extremity edema may be chronic since the BiV was placed and is worsened with CHF and volume overload. History of Present Illness Reason for Consultation: CHF Requesting Physician: Nikki Attending Physician: Mary History of Present Illness Mr. Kermit Rogers was admitted to [facility] on 09/09/2022 due to increased shortness of breath, left upper extremity swelling, and right greater than left lower extremity edema despite initiation and titration or oral diuretics as an outpatient. Last week he sustained an injury to the dorsal aspect of his left wrist on a dog steak for the yard that drained clear fluid until presentation to the ER, without erythema, fevers, or chills. LUE ultrasound on was negative for DVT. He received 1 mg of IV Bumex on presentation with perhaps some improvement in fluid retention. He has LUTs symptoms and notes a history of prostate cancer. History is limited from the patient. It is unclear if the patient is taking his medications correctly. It appears that he has had issues with fluid retention for many months. Quick look device interrogation today reveals multiple episodes of VT. Optivol is elevated suggesting volume overload. High sensitivity troponin minimally elevated. No chest pain. No palpitations. No device alarms or discharges. No PND. No dizziness, near syncope, or true syncope. No hemoptysis, melena, or hematochezia Past Medical and Surgical History: Congenitally bicuspid aortic valve Severe aortic stenosis status post aortic valve replacement with a 23 millimeter Rodri-Dockery Magna bioprosthesis performed by Dr. [place] koch, [facility], 04/24/2010 Preoperative cardiac catheterization at [facility], February, with no angiographically occlusive coronary heart disease. 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 Was not found to be in atrial fibrillation with slow ventricular response. 04/11/2022: Cardiac catheterization, at [facility],no significant obstructive disease, anomalous circumflex not visualized 04/11/2022: Implantation of biventricular pacemaker AICD (right atrial lead, right ventricular lead, coronary sinus lead) 04/14/2022: Presented with recurrent syncope, ventricular tachycardia, no therapy delivered by his AICD and he went external cardioversion. Several recurrent episodes of VT treated with ATP 04/17/2022-04/21/2022: Transfer to [facility]. Re-loaded with amiodarone. Ventricular detection thresholds lowered 05/10/2022:ED [facility] with gross hematuria, apparently taking both Xarelto and Eliquis. Treated with a course of cephalexin for UTI Hypertension Dyslipidemia Prediabetes Prostate cancer Hypothyroidism History of pancreatitis Cervical radiculopathy Hernia repair Laparoscopic cholecystectomy (11/08/21) Social History: Former smoker and snuff use, quitting both at the time of AVR (2010). No recent significant alcohol consumption. No illegal drug use. . 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 Family History: Father with prostate cancer. Brother with CAD. Allergies Allergy/AdvReac Type Severity Reaction Status Date / Time No Known Allergies Allergy Verified 09/03/22 10:53 Home Medications Medication Instructions Recorded Confirmed Type bupropion HCl 150 mg tablet,12 hr 150 mg PO BID #180 ea 10/29/21 09/09/22 Rx sustained-release fluocinonide 0.05 % topical cream 1 applic topical BID PRN .rash 11/07/21 09/09/22 History atorvastatin 80 mg tablet 80 mg PO HS #90 tabs 03/28/22 09/09/22 Rx metoprolol succinate 50 mg 50 mg PO QAM #30 tabs 04/22/22 09/09/22 Rx tablet,extended release 24 hr omeprazole 20 mg capsule,delayed 20 mg PO DAILY #30 caps 04/22/22 09/09/22 Rx release apixaban 5 mg tablet 5 mg PO BID #180 tabs 04/24/22 09/09/22 Rx amiodarone 200 mg tablet 200 mg PO DAILY #90 tabs 05/12/22 09/09/22 Rx folic acid 400 mcg tablet 0.4 mg PO QAM 05/12/22 09/09/22 History lisinopril 20 mg tablet 20 mg PO BID #180 tabs 07/14/22 09/09/22 Rx levothyroxine 50 mcg tablet 50 mcg PO DAILY #90 tabs 08/27/22 09/09/22 Rx (Synthroid) furosemide 20 mg tablet 40 mg PO DAILY #60 tabs 09/03/22 09/09/22 Rx potassium chloride 10 mEq 10 meq PO DAILY #30 tabs 09/03/22 09/09/22 Rx tablet,extended release Patient History Medical History Acute pancreatitis Cervical radiculopathy COVID-19 Difficulty reading due to visual problem Encounter for pre-operative examination Former smoker History of snuff use Hyperhomocystinemia Hypertension Hyperthyroidism Left bundle branch block New onset atrial fibrillation Prediabetes Presence of combination internal cardiac defibrillator (ICD) and pacemaker 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, 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, clinical stage TIc Status post biopsies, biopsy stage TIIa [place] grade 3+3 Status post seed implant with cesium 131 as boost 12/08/2006 Status post completion of IMRT/IGRT 02/26/2007" Prostate cancer Pure hypercholesterolemia PVC (premature ventricular contraction) Thrombocytopenia Ventricular tachycardia Surgical History H/O aortic valve repair H/O hernia repair History of laparoscopic cholecystectomy (11/08/21) lap ish/ercp Nov 01 Chambers Status post aortic valve replacement with bioprosthetic valve Family History Mother Heart disease Brother Cancer Lung cancer Unknown Prostate cancer Father Prostate cancer Denies family history of Colon cancer Ovarian cancer Myocardial infarction Breast cancer Social History Smoking Status: Never smoker Tobacco Type: Cigarettes and Smokeless Tobacco (Dip or Chew) Age Started Using Tobacco: 8; Age Quit Using Tobacco: 75; packs per day: 2.5; Second Hand Exposure: No; Do You Dip or Chew Tobacco: No; Hx Alcohol Use: No Hx Substance Use: No Preferred Language: Danish Communication Ability: Effective Visual Impairment: No Limitations Hearing Ability: Use of Hearing Aid 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 Required: No Beliefs That Will Affect Care: None marital status: / Current Living Situation: Alone Current Living Situation Comment: home alone with cat current occupational status: retired How many Children do You have: 2 Other Information That Helps Us Care for You: No Feels Safe at Home: Yes Safety Concerns: Feels Safe At This Time Childhood Exposure to Second-Hand Smoke: Yes Diet: regular Diet Comment: regular Dental Care, Regularly: No Physical Activity Frequency: Does not Exercise Seatbelt Use: never Sunscreen Use: No Do you think of yourself as: straight/heterosexual Assistive Devices: Cane and Walker Review of Systems Review of Systems: Complete Review of Systems is as stated above, negative, or noncontributory. Physical Exam 2 Physical Exam: General: A&Ox3. NAD. HENT: Normocephalic. Atraumatic. Eyes: PER. Conjunctiva pink, sclera clear. Neck: No carotid bruits. No JVD. Heart: RRR, 70 bpm. Soft systolic murmur. No diastolic murmur. PMI is nondisplaced. Lungs: Diminished. Clear to auscultation. No wheeze. Abdomen: +BS. Soft. Nontender. No masses or organomegaly. Extremities: Right greater than left lower extremity edema that is chronic, indurated. Left upper extremity edema, lymphedematous changes. No clubbing. No cyanosis. Radial pulses are OK. Posterior tibial pulses were not appreciated. Limited neurological examination is without focal deficits. Results & Data Vital Signs (Past 12 Hours) Vital Signs Temp Pulse Pulse Pulse Resp BP Pulse Ox 09/10/22 06:31 75 09/10/22 08:05 76 09/10/22 07:28 36.2 C L 77 20 115/81 96 09/10/22 04:09 36.6 C 78 18 108/74 96 09/10/22 00:51 74 09/10/22 00:10 09/09/22 23:33 36.6 C 76 18 131/83 96 O2 Del Method 09/10/22 06:31 09/10/22 08:05 09/10/22 07:28 Room Air 09/10/22 04:09 Room Air 09/10/22 00:51 09/10/22 00:10 Room Air 09/09/22 23:33 Room Air Laboratory Results Cardiac Enzymes 09/09/22 09/09/22 09/09/22 Range/Units 14:40 17:54 17:54 AST 23 (13-39) U/L Troponin I High Sens 25.6 H (0-20) pg/ml B-Natriuretic Peptide 690 H (0-100) pg/ml 09/09/22 09/10/22 Range/Units 20:20 08:18 AST 21 (13-39) U/L Troponin I High Sens 24.5 H (0-20) pg/ml B-Natriuretic Peptide (0-100) pg/ml Coagulation 09/09/22 Range/Units 17:54 B-Natriuretic Peptide 690 H (0-100) pg/ml CBC 09/09/22 09/10/22 Range/Units 14:40 08:18 WBC 6.83 5.75 (4.8-10.8) K/ul RBC 4.36 L 4.22 L (4.70-6.10) M/uL Hgb 12.7 L 12.3 L (14.0-18.0) g/dl Hct 38.4 L 38.1 L (42.0-52.0) % Plt Count 173 168 (130-400) K/uL Neut # (Auto) 4.69 3.63 (1.40-6.50) K/uL Lymph # (Auto) 1.26 1.13 L (1.2-3.4) K/uL [place] # (Auto) 0.67 H 0.69 H (0.11-0.59) K/uL Eos # (Auto) 0.15 0.23 (0-0.50) K/uL Baso # (Auto) 0.05 0.05 (0-0.2) K/uL Comprehensive Metabolic Panel 09/09/22 09/10/22 Range/Units 14:40 08:18 Sodium 139 139 (136-145) mmol/L Potassium 4.0 4.1 (3.5-5.1) mmol/L Chloride 102 102 (98-107) mmol/L Carbon Dioxide 31 31 (21-32) mmol/L BUN 45 H 44 H (6-23) mg/dl Creatinine 2.00 H 1.82 H (0.6-1.4) mg/dl Glucose 90 102 H (70-99(Fasting)) mg/dl Calcium 8.8 8.8 (8.6-10.3) mg/dl AST 23 21 (13-39) U/L ALT 27 24 (7-52) U/L Alkaline Phosphatase 132 H 120 H (34-104) U/L Total Protein 7.8 7.1 (6.0-8.3) gm/dl Albumin 3.9 3.5 (3.4-5.0) gm/dl Intake and Output 09/09/22 09/10/22 09/10/22 22:59 06:59 14:59 Intake Total 400 / 400 Output Total Balance 399 / 399 Intake: Oral 400 / 400 Output: # Bowel Movements Other: # Unmeasured Voids 1 Weight 98 kg 99.745 kg Weight Measurement Method Built in Bedscale Standing Scale Diagnostic Findings Telemetry: Paced. Frequent PVC's. Paroxysms of wide complex tachycardia after PVC's (singles and couplets) appearing to be ventricular tachycardia with rates 150-160 bpm.
[2022-09-10] MEDS: BUMETANIDE 1 MG in SYRINGE 0 ML IV SCH (13:01)
[2022-09-10] MEDS: SPIRONOLACTONE 12.5 MG TAB PO SCH (13:01)
--- NOTE | 2022-09-10 15:03 | Ultrasound Report ---
US venous doppler UE LT CLINICAL HISTORY: LUE edema PROCEDURE: Left upper extremity real-time compression venous ultrasound with Duplex and color Doppler imaging. Comparison: None available at the time of this dictation. FINDINGS/IMPRESSION: There is normal compressibility of the deep venous system from the forearm through the subclavian vei n. Normal vascular flow is currently identified. Subcutaneous edema is seen in the arm. ACT 112: Negative or not required by law. Electronically signed by: Daniel Hernandez M.D. 09/10/2022 3:01 PM
[2022-09-10] MEDS ORDERED: PIPERACILLIN/TAZOBACTAM 4.5 GM in DEXTROSE 5% 100 ML IV ONE (15:15)
[2022-09-10] MEDS: AMIODARONE 200 MG TAB PO SCH (15:49)
--- NOTE | 2022-09-10 16:26 | Communication Note ---
Date of Service: September 10, 2022 Patient's defibrillator is MRI compatible with the [employer] serial number [id number]. [employer] DT
--- NOTE | 2022-09-10 17:20 | Nephrology Consultation ---
Date of Consultation September 10, 2022 Assessment & Plan (1) CATRACHITO (acute kidney injury): (2) Stage 3b chronic kidney disease: (3) Hypertension: (4) Atrial fibrillation: Plan 81-year-old male with stage IIIB CKD, baseline creatinine 1.5 to 1.7 with history of hypertension, cardiomyopathy admitted to the hospital with worsening lower extremity edema new onset left upper extremity edema and failed outpatient diuretic. On admission creatinine was 2.0, electrolyte acceptable. Urinalysis and renal imaging was otherwise unremarkable. Renal function slightly improved this morning to cr 1.8, electrolyte acceptable. --will need close monitoring of renal function and electrolyte while on IV Bumex, strict intake and output, aim for net negative 0.5 to 1 L/d --low salt diet, keep legs elevated, avoid nephrotoxic medications will follow Thank you for allowing me to participate in your patient's care. It was a pleasure to see Kermit. History of Present Illness Reason for Consultation: CATRACHITO, volume overload, LE edema Attending Physician: Taiwo Hernandez MD History of Present Illness Mr. Kermit Rogers is an 81 year old male with a PMH significant for stage 3 B CKD, HTN, non-obstructive CAD pulmonary hypertension, CKD, HTN, HLD, hypothyroidism admitted to [facility] ED on 09/09/22 for ongoing BL LE and LUE swelling. 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 He Has been having ongoing issues with bilateral lower extremity edema for several months, was on Lasix 20 mg daily which was increased on 09/04/22 to 40 mg bid without any significant improvement in LE edema. for last 1 week suddenly he started having left upper extremity edema after head injury in his left hand at home. In ER vitals were noted to be stable. Labs showed Cr of 2.0 with b/l cr around 1.4 to 1.7, high sen trop of 25.6, BNP of 690. CXT and CT chest was negative for congestion or effusion. There was a report of a large lipoma of left shoulder causing occlusion and left UE edema. Urinalysis was negative for proteinuria hematuria per CT abdomen pelvis showed otherwise normal bilateral kidneys with no postrenal obstruction. Has been voiding normally. No history of recent NSAID use. 2D echo on admission showed EF 35-40% with LVH, last echo in 10/2021 with EF 50-55%,. He was given 1 dose of Lasix 1 mg IV and continued on daily dose. Past medical history significant for hypertension, has been well controlled, history of aortic stenosis status post bioprosthetic aortic valve replacement at [facility] in 2010,afib on eliquis, h/o LBBB S/P biventricular pacemaker placement in 2021. He denied SOB, CP. Mainly bothered by LE edema and left arm edema. Allergies Allergy/AdvReac Type Severity Reaction Status Date / Time No Known Allergies Allergy Verified 09/03/22 10:53 Home Medications Medication Instructions Recorded Confirmed Type bupropion HCl 150 mg tablet,12 hr 150 mg PO BID #180 ea 10/29/21 09/09/22 Rx sustained-release fluocinonide 0.05 % topical cream 1 applic topical BID PRN .rash 11/07/21 09/09/22 History atorvastatin 80 mg tablet 80 mg PO HS #90 tabs 03/28/22 09/09/22 Rx metoprolol succinate 50 mg 50 mg PO QAM #30 tabs 04/22/22 09/09/22 Rx tablet,extended release 24 hr omeprazole 20 mg capsule,delayed 20 mg PO DAILY #30 caps 04/22/22 09/09/22 Rx release apixaban 5 mg tablet 5 mg PO BID #180 tabs 04/24/22 09/09/22 Rx amiodarone 200 mg tablet 200 mg PO DAILY #90 tabs 05/12/22 09/09/22 Rx folic acid 400 mcg tablet 0.4 mg PO QAM 05/12/22 09/09/22 History lisinopril 20 mg tablet 20 mg PO BID #180 tabs 07/14/22 09/09/22 Rx levothyroxine 50 mcg tablet 50 mcg PO DAILY #90 tabs 08/27/22 09/09/22 Rx (Synthroid) furosemide 20 mg tablet 40 mg PO DAILY #60 tabs 09/03/22 09/09/22 Rx potassium chloride 10 mEq 10 meq PO DAILY #30 tabs 09/03/22 09/09/22 Rx tablet,extended release Patient History Medical History (Updated 09/10/22 @ 17:38 by Falguni Headley MD) Acute pancreatitis Cervical radiculopathy COVID-19 Difficulty reading due to visual problem Encounter for pre-operative examination Former smoker History of snuff use Hyperhomocystinemia Hypertension Hyperthyroidism Left bundle branch block New onset atrial fibrillation Prediabetes Presence of combination internal cardiac defibrillator (ICD) and pacemaker 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, 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, clinical stage TIc Status post biopsies, biopsy stage TIIa [place] grade 3+3 Status post seed implant with cesium 131 as boost 12/08/2006 Status post completion of IMRT/IGRT 02/26/2007" Prostate cancer Pure hypercholesterolemia PVC (premature ventricular contraction) Stage 3b chronic kidney disease Thrombocytopenia Ventricular tachycardia Surgical History (Updated 09/10/22 @ 12:02 by Miguel Peterson) H/O aortic valve repair H/O hernia repair History of laparoscopic cholecystectomy (11/08/21) lap ish/ercp Nov 01 Chambers Status post aortic valve replacement with bioprosthetic valve Family History Mother Heart disease Brother Cancer Lung cancer Unknown Prostate cancer Father Prostate cancer Denies family history of Colon cancer Ovarian cancer Myocardial infarction Breast cancer Social History Smoking Status: Never smoker Tobacco Type: Cigarettes and Smokeless Tobacco (Dip or Chew) Age Started Using Tobacco: 8; Age Quit Using Tobacco: 75; packs per day: 2.5; Second Hand Exposure: No; Do You Dip or Chew Tobacco: No; Hx Alcohol Use: No Hx Substance Use: No Preferred Language: Hebrew Communication Ability: Effective Visual Impairment: No Limitations Hearing Ability: Use of Hearing Aid Ct Mri Technologist Required: No Beliefs That Will Affect Care: None marital status: / Current Living Situation: Alone Current Living Situation Comment: home alone with cat current occupational status: retired How many Children do You have: 2 Other Information That Helps Us Care for You: No Feels Safe at Home: Yes Safety Concerns: Feels Safe At This Time Childhood Exposure to Second-Hand Smoke: Yes Diet: regular Diet Comment: regular Dental Care, Regularly: No Physical Activity Frequency: Does not Exercise Seatbelt Use: never Sunscreen Use: No Do you think of yourself as: straight/heterosexual Assistive Devices: Cane and Walker Review of Systems Review of Systems: Detail ROS was otherwise unremarkable. Physical Exam Constitutional: WD/WN, vitals as above no acute distress Eyes: + anicteric sclerae Neck: normal visual inspection Respiratory: no respiratory distress Auscultation: lungs clear to auscultation bilaterally Cardiovascular: Rate/Rhythm: regular rate and regular rhythm Heart Sounds: normal S1 and normal S2 Extremities: + edema (2 + b/l LE edema and 3 + UE e nikki) Gastrointestinal (Abdomen): Inspection/Auscultation: abdomen normal to inspection and normal bowel sounds Percussion/Palpation: abdomen soft; abdomen nontender Musculoskeletal: Extremities: extremities normal to inspection Skin: no rashes, warm and dry + lesion (left hand dorsum) Neurologic: no focal motor deficits and not confused Psychiatric: Orientation: alert and oriented x 3 Affect: euthymic affect Results & Data Vital Signs (Past 12 Hours) Vital Signs Temp Pulse Pulse Pulse Resp BP Pulse Ox 09/10/22 11:15 36.4 C L 76 18 116/76 98 09/10/22 06:31 75 09/10/22 08:05 76 09/10/22 07:28 36.2 C L 77 20 115/81 96 O2 Del Method 09/10/22 11:15 Room Air 09/10/22 06:31 09/10/22 08:05 09/10/22 07:28 Room Air PG Care Time/CCT Total # of Minutes Spent Total Time Spent with Patient: Total time spent is greater than 50% in coordination of care (as documented) at patient's floor/unit and/or counseling patient: Coding Level of Care Code 56324 INT INP/OBS CARE 3/75MIN Diagnoses CATRACHITO (acute kidney injury) N17.9 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 Hypertension I10 Hypertension type: essential hypertension Atrial fibrillation I48.91 (3) Hypertension Hypertension type: essential hypertension Qualified Code(s): I10 - Essential (primary) hypertension
[2022-09-10] MEDS: DAPTOmycin 500 MG in SYRINGE 0 ML IV SCH (17:38)
[2022-09-10] MEDS: PIPERACILLIN/TAZOBACTAM 4.5 GM in DEXTROSE 5% 100 ML IV SCH (22:08)
[2022-09-11] MEDS: PIPERACILLIN/TAZOBACTAM 4.5 GM in DEXTROSE 5% 100 ML IV SCH ×3 (05:50→22:19)
[2022-09-11] MEDS: LEVOTHYROXINE SODIUM 50 MCG TABLET PO SCH (05:50)
[2022-09-11 07:28] LABS: Basophils # (auto) 0.05 K/uL (0-0.2); Basophils % (auto) 0.9 %; Eosinophils # (auto) 0.23 K/uL (0-0.50); Eosinophils % (auto) 3.9 %; Hematocrit (blood only) 35.6 % (42.0-52.0); Hemoglobin 11.6 g/dl (14.0-18.0); Immature Granulocytes # (auto) 0.02 K/uL (0.01-0.20); Immature Granulocytes % (auto) 0.3 %; Lymphocytes # (auto) 1.26 K/uL (1.2-3.4); Lymphocytes % (auto) 21.6 %; Mean Corpuscular Hgb Conc 32.6 g/dL (32.0-36.0); Monocytes # (auto) 0.66 K/uL (0.11-0.59); Monocytes % (auto) 11.3 %; Neutrophils # (auto) 3.61 K/uL (1.40-6.50); Platelet Count 139 K/uL (130-400); RDW Coefficient of Variation 15.7 % (11.5-14.5); RDW Standard Deviation 51.1 fL (36.4-46.3); White Blood Count 5.83 K/ul (4.8-10.8)
[2022-09-11 07:51] LABS: Albumin Level 3.1 gm/dl (3.4-5.0); BUN Creatinine Ratio 21.9 (10-20); Bilirubin,Total 0.7 mg/dl (0.2-1.0); Calcium 8.3 mg/dl (8.6-10.3); Creatinine Clr Calc Pharmacy 36.3 ml/min; Est GFR (African American) 38.7 ml/min; Est GFR (Non-African American) 33.4 ml/min; Globulin 3.2 gm/dl (2.5-4.0); Magnesium 1.9 mg/dl (1.7-2.4); Potassium 4.1 mmol/L (3.5-5.1); Total Protein 6.3 gm/dl (6.0-8.3)
[2022-09-11] MEDS: buPROPion SR 150 MG TABCR PO SCH ×2 (08:28→22:20)
[2022-09-11] MEDS: APIXABAN 5 MG TABLET PO SCH ×2 (08:28→22:20)
[2022-09-11] MEDS: METOPROLOL SUCC 50MG EXT REL TAB PO SCH (08:28)
[2022-09-11] MEDS: PANTOprazole 40 MG TAB PO SCH (08:28)
[2022-09-11] MEDS: AMIODARONE 200 MG TAB PO SCH ×2 (08:28→17:45)
[2022-09-11] MEDS: SPIRONOLACTONE 12.5 MG TAB PO SCH (08:28)
[2022-09-11] MEDS: BUMETANIDE 1 MG in SYRINGE 0 ML IV SCH (08:28)
--- NOTE | 2022-09-11 08:41 | Hospitalist Progress Note ---
Date of Service September 11, 2022 Assessment & Plan (1) Swelling of both lower extremities: Plan: ongoing issues with BL LE and LUE swelling, has been followed by his PCP and [facility] Cards without improvement after increasing his diuretics recently Imaging is not revealing except for lipoma that maybe contributing to vascular occlusion, CXR without CHF. I spoke to orthopedics on-call he did agree there is a large lipoma which may have vascular compromise however it is involving neurovascular structures and appears to be out of scope for me to be orthopedic physician. I spoke to radiation therapy who feels that lipomas may not respond to XRT unless they are rapidly growing and there is some evidence that we can see lipomas on previous MRI scan from 2017. Spoke interventional radiology to see if a biopsy could be undertaken to prove this is a lipoma but they feel that as it is a fatty mass in general that the sampling error could be high and may not be useful. I spoke to the patient who would be open to having tertiary referral will push the images to [facility] and discussed with physicians at [facility] regarding this julio wraps on the BL LE's to assist with diuresis and swelling -Home eliquis for DVT PPX Venous insufficiency of bilateral lower extremities acute on chronic systolic heart failure - (2) Left upper extremity swelling: Plan: CT with lipoma that maybe causing vascular compromise negative US of the LUE for DVT on Patient did have a puncture wound to the dorsum of his left hand a few days prior to coming in. This is with a metal object that was necessarily sterile necessarily soiled. To this end because he has both aortic valve and a defibrillator pacemaker blood cultures were obtained by cardiology. Daptomycin and Zosyn therapy. Inflammatory markers are not significantly elevated (3) Atrial fibrillation: Plan: -HR currently rate controlled with pacemaker/AICD, AICD was placed for V. tach in the past Patient's defibrillator is MRI compatible with the Medtronic serial number [id number]. Kokoia, MRI Quad FOOD QUALITY TESTER-D DT -Continue continue amiodarone and metoprolol Troponin elevated 25 repeat 25 likely this is patient has mild elevation in troponin or acute coronary syndrome if anything might be demand ischemia could be from renal failure Chronic stable hypertension and heart failure reduced ejection fraction treated with metoprolol Echo 09/10/22 EF 35-40%, LVH with borderline dilation, prosthetic valve gradient normal (4) CKD (chronic kidney disease): Plan: -Acute kidney injury on chronic kidney disease stage III (5) Hypothyroidism: Plan: -Continue levothyroxine (6) Depression: Plan: -Continue wellbutrin Admission and Anticipated Discharge Date Admission Date: September 09, 2022 Subjective Patient has persistent swelling and some pain to his upper extremity. Likely secondary to large lipoma Physical Exam Physical Exam: Patient has not had much reduction in his swelling. Patient believes his swelling is only been for the last few days and seems to be heralded by this puncture wound to his hand And itself does not look to be infected he remains on antibiotics the swelling is still 1-2+ pitting edema without bullae Cardiac exam is regular with a systolic murmur His lungs are clear His extremity and trace to 1+ edema which appear to be more chronic than acute Results & Data Results & Data Vital Signs (Past 12 Hours) Vital Signs Temp Pulse Pulse Resp BP BP Pulse Ox 09/11/22 07:22 97.7 F 73 18 116/77 96 09/11/22 03:08 97.3 F L 75 18 114/75 95 09/10/22 23:58 75 09/10/22 23:33 97.3 F L 78 18 113/69 96 O2 Del Method 09/11/22 07:22 Room Air 09/11/22 03:08 Room Air 09/10/22 23:58 09/10/22 23:33 Room Air Laboratory Results Reviewed CBC reviewed chemistry reviewed ESR22 Blood cultures negative to date PG Care Time/CCT Total # of Minutes Spent Total Time Spent with Patient: Total time spent is greater than 50% in coordination of care (as documented) at patient's floor/unit and/or counseling patient: Coding Level of Care Code 25853 SUB INP/OBS CARE 3/50MIN Diagnoses Swelling of both lower extremities M79.89 Left upper extremity swelling M79.89 Atrial fibrillation I48.91 CKD (chronic kidney disease) N18.9 Hypothyroidism E03.2 Hypothyroidism type: due to medication Depression F32.0 Active/Remission status: currently active Depression Type: major depressive disorder Major depression episode severity: mild Major depression recurrence: single episode (5) Hypothyroidism Hypothyroidism type: due to medication Qualified Code(s): E03.2 - Hypothyroidism due to medicaments and other exogenous substances (6) Depression Active/Remission status: currently active Depression Type: major depressive disorder Major depression episode severity: mild Major depression recurrence: single episode Qualified Code(s): F32.0 - Major depressive disorder, single episode, mild
--- NOTE | 2022-09-11 10:39 | Cardiology Progress Note ---
Date of Service September 11, 2022 Assessment & Plan (1) Heart failure, diastolic, with acute decompensation: Plan: Continue IV Bumex. Continue spironolactone 12.5 mg/day (new this admission) Daily metabolic panels. Sodium restrict to 1,500 mg/day. (2) Ventricular tachycardia: Plan: Frequent episodes on personal review of the device interrogation performed on 09/10/2022 Suspect noncompliance with metoprolol and amiodarone prior to arrivial Continue metoprolol succinate at 50 mg/day Continue amiodarone at 200 mg twice a day (dose increased this admission) (3) Left upper extremity swelling: Plan: Appears secondary to volume overload from HFpEF and lymphedematous change/vein congestion from device. Diuretics as above. Compression sleeve. (4) Renal dysfunction: Plan: Stable. Nephrology on board. (5) Nonobstructive atherosclerosis of coronary artery: Plan: Continue medical management. (6) S/P AVR (aortic valve replacement): Plan: Status post April 24, 2010 AVR with a 23 mm Rodri-Dockery Magna bioprosthesis by Dr. [place] koch, [facility] Check blood cultures pending. (7) Dyslipidemia, goal LDL below 70: Plan: Hold atorvastatin (80 mg/day) while on daptomycin May need to reduce atorvastatin dosing with amiodarone as above. Admission and Anticipated Discharge Date Admission Date: September 09, 2022 Supervising Physician Co-Signing Physician Notes I have reviewed the advance practitioner documentation and agree. I saw and evaluated the patient on the date of service referenced in the note and have performed a medically appropriate history and or exam. Subjective Patient seen and examined. Chart, medications, and telemetry reviewed. Fluid retention mildly improved. No chest pain, palpitations, shortness of breath, orthopnea, PND, dizziness, or lightheadedness. No fevers or chills. Telemetry reviewed. Things seemed to have really calmed down. PVC burden is lessened. No further paroxysms of ventricular tachycardia. Paced at 74 bpm currently. September 10, 2022 TTE Interpretation Summary ([facility], Dr. Ordoñez): Borderline dilated LV. Mild concentric LVH. Moderately reduced LV systolic function, EF 35-40%. Normal RV systolic function. Normal LA size. Normal RA size. Bioprosthetic AV noted, with normal gradient and not significant aortic regurgitation. Moderate tricuspid regurgitation. Review of Systems Review of Systems: Complete Review of Systems is as stated above, negative, or noncontributory. Physical Exam Physical Exam: General: A&Ox3. NAD. HENT: Normocephalic. Atraumatic. Eyes: PER. Conjunctiva pink, sclera clear. Neck: No carotid bruits. No JVD. Heart: RRR, 70 bpm. Soft systolic murmur. No diastolic murmur. PMI is nondisplaced. Lungs: Diminished. Clear to auscultation. No wheeze. Abdomen: +BS. Soft. Nontender. No masses or organomegaly. Extremities: Right greater than left lower extremity edema that is chronic, indurated. Left upper extremity edema, lymphedematous changes. No clubbing. No cyanosis. Radial pulses are OK. Posterior tibial pulses were not appreciated. Limited neurological examination is without focal deficits. Results & Data Vital Signs (Past 12 Hours) Vital Signs Temp Pulse Pulse Resp BP BP Pulse Ox 09/11/22 08:49 36.5 C 78 16 91/56 L 94 09/11/22 07:22 36.5 C 73 18 116/77 96 09/11/22 03:08 36.3 C L 75 18 114/75 95 09/10/22 23:58 75 09/10/22 23:33 36.3 C L 78 18 113/69 96 O2 Del Method 09/11/22 08:49 Room Air 09/11/22 07:22 Room Air 09/11/22 03:08 Room Air 09/10/22 23:58 09/10/22 23:33 Room Air Laboratory Results Cardiac Enzymes 09/10/22 09/11/22 Range/Units 08:18 06:37 AST 21 19 (13-39) U/L CBC 09/11/22 Range/Units 06:37 WBC 5.83 (4.8-10.8) K/ul RBC 4.00 L (4.70-6.10) M/uL Hgb 11.6 L (14.0-18.0) g/dl Hct 35.6 L (42.0-52.0) % Plt Count 139 (130-400) K/uL Neut # (Auto) 3.61 (1.40-6.50) K/uL Lymph # (Auto) 1.26 (1.2-3.4) K/uL [place] # (Auto) 0.66 H (0.11-0.59) K/uL Eos # (Auto) 0.23 (0-0.50) K/uL Baso # (Auto) 0.05 (0-0.2) K/uL Comprehensive Metabolic Panel 09/10/22 09/11/22 Range/Units 08:18 06:37 Sodium 139 140 (136-145) mmol/L Potassium 4.1 4.1 (3.5-5.1) mmol/L Chloride 102 105 (98-107) mmol/L Carbon Dioxide 31 29 (21-32) mmol/L BUN 44 H 40 H (6-23) mg/dl Creatinine 1.82 H 1.83 H (0.6-1.4) mg/dl Glucose 102 H 99 (70-99(Fasting)) mg/dl Calcium 8.8 8.3 L (8.6-10.3) mg/dl AST 21 19 (13-39) U/L ALT 24 20 (7-52) U/L Alkaline Phosphatase 120 H 105 H (34-104) U/L Total Protein 7.1 6.3 (6.0-8.3) gm/dl Albumin 3.5 3.1 L (3.4-5.0) gm/dl Intake and Output 09/10/22 09/11/22 09/11/22 22:59 06:59 14:59 Intake Total 320 / 830 270 / 830 120 / 120 Balance 320 / 830 270 / 830 120 / 120 Intake: IV 120 / 240 120 / 240 120 / 120 Piperacillin/Tazobactam 4.5 gm 120 / 240 120 / 240 120 / 120 In Dextrose 5% 100 ml @ 30 mls/ hr IV Q8H [facility] Rx#:[id number] Oral 200 / 590 150 / 590 Other: Weight 100 kg Weight Measurement Method Standing Scale
--- NOTE | 2022-09-11 11:27 | Nephrology Progress Note ---
Date of Service September 11, 2022 Assessment & Plan (1) CATRACHITO (acute kidney injury): (2) Stage 3b chronic kidney disease: (3) Hypertension: (4) Atrial fibrillation: (5) Left upper extremity swelling: (6) Edema: Plan 81-year-old male with stage IIIB CKD, baseline creatinine 1.5 to 1.7 with history of hypertension, cardiomyopathy admitted to the hospital with worsening lower extremity edema new onset left upper extremity edema and failed outpatient diuretic. On admission creatinine was 2.0, electrolyte acceptable. Urinalysis and renal imaging was otherwise unremarkable. Renal function slightly improved and stable, cr 1.8, electrolyte acceptable. --will need close monitoring of renal function and electrolyte while on IV Bumex, strict intake and output, aim for net negative 0.5 to 1 L/d, may need to increase Bumex to 2 mg --low salt diet, keep legs elevated, avoid nephrotoxic medications will follow. Admission and Anticipated Discharge Date Admission Date: September 09, 2022 Dick Carmen was seen and evaluated this morning. LE edema slightly improved but L UE edema about the same. BP relatively low, voiding more although UO unmeasured. R enal function relatively stable, electrolyte acceptable. Review of Systems Review of Systems: Detail ROS was otherwise unremarkable. Physical Exam Constitutional: WD/WN, vitals as above no acute distress Eyes: + anicteric sclerae Neck: normal visual inspection Respiratory: no respiratory distress Auscultation: lungs clear to auscultation bilaterally Cardiovascular: Rate/Rhythm: regular rate and regular rhythm Heart Sounds: normal S1 and normal S2 Extremities: + edema (2 + b/l LE edema and 3 + UE edema) Musculoskeletal: Extremities: extremities normal to inspection Skin: no rashes, warm and dry + lesion (left hand dorsum) Neurologic: no focal motor deficits and not confused Psychiatric: Orientation: alert and oriented x 3 Affect: euthymic affect Results & Data Vital Signs (Past 12 Hours) Vital Signs Temp Pulse Pulse Resp BP BP Pulse Ox 09/11/22 08:00 75 09/11/22 08:49 36.5 C 78 16 91/56 L 94 09/11/22 07:22 36.5 C 73 18 116/77 96 09/11/22 03:08 36.3 C L 75 18 114/75 95 09/10/22 23:58 75 09/10/22 23:33 36.3 C L 78 18 113/69 96 O2 Del Method 09/11/22 08:00 09/11/22 08:49 Room Air 09/11/22 07:22 Room Air 09/11/22 03:08 Room Air 09/10/22 23:58 09/10/22 23:33 Room Air PG Care Time/CCT Total # of Minutes Spent Total Time Spent with Patient: Total time spent is greater than 50% in coordination of care (as documented) at patient's floor/unit and/or counseling patient: Coding Level of Care Code 37193 SUB INP/OBS CARE 2MIN Diagnoses CATRACHITO (acute kidney injury) N17.9 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 Hypertension I10 Hypertension type: essential hypertension Atrial fibrillation I48.91 Left upper extremity swelling M79.89 Edema R60.9 (3) Hypertension Hypertension type: essential hypertension Qualified Code(s): I10 - Essential (primary) hypertension
[2022-09-11] MEDS: DAPTOmycin 500 MG in SYRINGE 0 ML IV SCH (17:45)
[2022-09-12] MEDS: PIPERACILLIN/TAZOBACTAM 4.5 GM in DEXTROSE 5% 100 ML IV SCH (05:37)
[2022-09-12] MEDS: LEVOTHYROXINE SODIUM 50 MCG TABLET PO SCH (05:37)
[2022-09-12 07:20] LABS: Basophils # (auto) 0.06 K/uL (0-0.2); Basophils % (auto) 1.1 %; Eosinophils # (auto) 0.19 K/uL (0-0.50); Eosinophils % (auto) 3.4 %; Hemoglobin 10.9 g/dl (14.0-18.0); Immature Granulocytes # (auto) 0.01 K/uL (0.01-0.20); Immature Granulocytes % (auto) 0.2 %; Lymphocytes # (auto) 1.39 K/uL (1.2-3.4); Lymphocytes % (auto) 24.6 %; Mean Corpuscular Hemoglobin 29.2 pg (25.0-34.0); Mean Corpuscular Volume 88.5 fL (80.0-100.0); Mean Platelet Volume 12.1 fL (9.4-12.4); Monocytes # (auto) 0.65 K/uL (0.11-0.59); Monocytes % (auto) 11.5 %; Neutrophils # (auto) 3.35 K/uL (1.40-6.50); Neutrophils % (auto) 59.2 %; Platelet Count 122 K/uL (130-400); RDW Coefficient of Variation 15.7 % (11.5-14.5); RDW Standard Deviation 51.4 fL (36.4-46.3); Red Blood Count 3.73 M/uL (4.70-6.10); White Blood Count 5.65 K/ul (4.8-10.8)
[2022-09-12] MEDS: AMIODARONE 200 MG TAB PO SCH ×2 (07:20→17:00)
[2022-09-12] MEDS: buPROPion SR 150 MG TABCR PO SCH (07:20)
[2022-09-12] MEDS: BUMETANIDE 1 MG in SYRINGE 0 ML IV SCH (07:20)
[2022-09-12] MEDS: METOPROLOL SUCC 50MG EXT REL TAB PO SCH (07:20)
[2022-09-12] MEDS: APIXABAN 5 MG TABLET PO SCH (07:20)
[2022-09-12] MEDS: PANTOprazole 40 MG TAB PO SCH (07:21)
[2022-09-12] MEDS: SPIRONOLACTONE 12.5 MG TAB PO SCH (07:21)
[2022-09-12 07:35] LABS: BUN Creatinine Ratio 20.3 (10-20); Bilirubin,Total 0.7 mg/dl (0.2-1.0); Calcium 8.4 mg/dl (8.6-10.3); Creatinine Clr Calc Pharmacy 32.1 ml/min; Est GFR (African American) 33.3 ml/min; Est GFR (Non-African American) 28.8 ml/min; Globulin 3.1 gm/dl (2.5-4.0); Magnesium 1.9 mg/dl (1.7-2.4); Total Protein 6.1 gm/dl (6.0-8.3)
--- NOTE | 2022-09-12 08:50 | Cardiology Progress Note ---
Date of Service September 12, 2022 Assessment & Plan (1) Heart failure, diastolic, with acute decompensation: Plan: Minimal improvement, ongoing anasarca Increase IV Bumex to twice a day IF OK with Nephrology. Continue spironolactone 12.5 mg/day (new this admission) Daily metabolic panels. Sodium restrict to 1,500 mg/day. (2) Ventricular tachycardia: Plan: Frequent episodes of VT observed on personal review of the device interrogation performed on 09/10/2022 Significantly improved since admission. Suspect noncompliance with medications prior to arrival Continue metoprolol succinate at 50 mg/day Continue amiodarone at 200 mg twice a day (dose increased this admission) (3) Left upper extremity swelling: Plan: Appears secondary to volume overload from HFpEF and lymphedematous change/vein congestion from device. 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 Diuretics as above. Compression sleeve. (4) PAF (paroxysmal atrial fibrillation): Plan: Reduce Apixaban (Eliquis) dosing to 2.5 mg twice a day given age and renal impairment. (5) Renal dysfunction: Plan: Nephrology following (6) Nonobstructive atherosclerosis of coronary artery: Plan: Continue medical management. (7) S/P AVR (aortic valve replacement): Plan: Status post April 24, 2010 AVR with a 23 mm Rodri-Dockery Magna bioprosthesis by Dr. [place] koch, [facility] Check blood cultures pending. (8) Dyslipidemia, goal LDL below 70: Plan: Hold atorvastatin (80 mg/day) while on daptomycin May need to reduce atorvastatin dosing with amiodarone as above. Admission and Anticipated Discharge Date Admission Date: September 09, 2022 Supervising Physician Co-Signing Physician Notes I have reviewed the advance practitioner documentation and agree. I saw and evaluated the patient on the date of service referenced in the note and have performed a medically appropriate history and or exam. Subjective Patient seen and examined. Chart, medications, and telemetry reviewed. Perhaps with mild improvement in volume overload. No chest pain, palpitations, shortness of breath, orthopnea, PND, dizziness, or lightheadedness. No fevers or chills. Telemetry: Paced in the 70's. September 10, 2022 TTE Interpretation Summary ([facility], Dr. Ordoñez): Borderline dilated LV. Mild concentric LVH. Moderately reduced LV systolic function, EF 35-40%. Normal RV systolic function. Normal LA size. Normal RA size. Bioprosthetic AV noted, with normal gradient and not significant aortic regurgitation. Moderate tricuspid regurgitation. Review of Systems Review of Systems: Complete Review of Systems is as stated above, negative, or noncontributory. Physical Exam Physical Exam: General: A&Ox3. NAD. HENT: Normocephalic. Atraumatic. Eyes: PER. Conjunctiva pink, sclera clear. Neck: No carotid bruits. No JVD. Heart: RRR, 70 bpm. Soft systolic murmur. No diastolic murmur. PMI is nondisplaced. Lungs: Diminished. Clear to auscultation. No wheeze. Abdomen: +BS. Soft. Nontender. No masses or organomegaly. Extremities: Right greater than left lower extremity edema that is chronic, indurated. Left upper extremity edema, lymphedematous changes. No clubbing. No cyanosis. Radial pulses are OK. Posterior tibial pulses were not appreciated. Limited neurological examination is without focal deficits. Results & Data Vital Signs (Past 12 Hours) Vital Signs Temp Pulse Pulse Resp BP BP Pulse Ox 09/12/22 08:07 36.7 C 78 16 122/80 96 09/12/22 07:36 75 09/12/22 04:13 36.6 C 75 20 109/81 96 09/12/22 00:24 75 09/11/22 23:33 36.5 C 74 20 118/78 96 O2 Del Method 09/12/22 08:07 Room Air 09/12/22 07:36 09/12/22 04:13 Room Air 09/12/22 00:24 09/11/22 23:33 Room Air Laboratory Results Cardiac Enzymes 09/12/22 Range/Units 06:23 AST 17 (13-39) U/L CBC 09/12/22 Range/Units 06:23 WBC 5.65 (4.8-10.8) K/ul RBC 3.73 L (4.70-6.10) M/uL Hgb 10.9 L (14.0-18.0) g/dl Hct 33.0 L (42.0-52.0) % Plt Count 122 L (130-400) K/uL Neut # (Auto) 3.35 (1.40-6.50) K/uL Lymph # (Auto) 1.39 (1.2-3.4) K/uL [place] # (Auto) 0.65 H (0.11-0.59) K/uL Eos # (Auto) 0.19 (0-0.50) K/uL Baso # (Auto) 0.06 (0-0.2) K/uL Comprehensive Metabolic Panel 09/12/22 Range/Units 06:23 Sodium 139 (136-145) mmol/L Potassium 4.0 (3.5-5.1) mmol/L Chloride 104 (98-107) mmol/L Carbon Dioxide 29 (21-32) mmol/L BUN 42 H (6-23) mg/dl Creatinine 2.07 H (0.6-1.4) mg/dl Glucose 91 (70-99(Fasting)) mg/dl Calcium 8.4 L (8.6-10.3) mg/dl AST 17 (13-39) U/L ALT 19 (7-52) U/L Alkaline Phosphatase 94 (34-104) U/L Total Protein 6.1 (6.0-8.3) gm/dl Albumin 3.0 L (3.4-5.0) gm/dl Intake and Output 09/11/22 09/12/22 09/12/22 22:59 06:59 14:59 Intake Total 360 / 1160 320 / 1160 Output Total 425 / 1675 350 / 1675 Balance -65 / -515 -30 / -515 Intake: IV 120 / 360 120 / 360 Piperacillin/Tazobactam 4.5 gm 120 / 360 120 / 360 In Dextrose 5% 100 ml @ 30 mls/ hr IV Q8H [facility] Rx#:[id number] Oral 240 / 800 200 / 800 Output: Urine 425 / 1675 350 / 1675 Other: Weight 100.2 kg Weight Measurement Method Built in [facility]
[2022-09-12] MEDS ORDERED: APIXABAN 2.5 MG TAB PO SCH (09:00)
--- NOTE | 2022-09-12 15:06 | Nephrology Progress Note ---
Date of Service September 12, 2022 Assessment & Plan (1) CATRACHITO (acute kidney injury): (2) Stage 3b chronic kidney disease: (3) Hypertension: (4) Atrial fibrillation: (5) Left upper extremity swelling: (6) Edema: Plan 81-year-old male with stage IIIB CKD, baseline creatinine 1.5 to 1.7 with history of hypertension, cardiomyopathy admitted to the hospital with worsening lower extremity edema new onset left upper extremity edema and failed outpatient diuretic. On admission creatinine was 2.0, electrolyte acceptable. Urinalysis and renal imaging was otherwise unremarkable. Slight worsening of renal function the setting of diuretics and slightly net negative, electrolyte acceptable. Blood pressure acceptable. --okay to increase Bumex to 1 mg IV twice a day however considering slight change in creatinine there will be risk for further worsening or electrolyte abnormality, will need close monitoring, the strict intake and output, aim for net negative 0.5 to 1 L/d, may need to increase Bumex to 2 mg --low salt diet, keep legs elevated, avoid nephrotoxic medications will follow. Admission and Anticipated Discharge Date Admission Date: September 09, 2022 Dick Carmen was not seen in person today as during visit he was not in the room. Labs reviewed, noted slight worsening of kidney function but nothing heart significant, electrolyte acceptable. Blood pressure acceptable other vital sign including oxygen saturation normal. Suboptimal response to diuretics net -500 mL. Review of Systems Review of Systems: Detail ROS was otherwise unremarkable. Results & Data Vital Signs (Past 12 Hours) Vital Signs Temp Pulse Pulse Resp BP BP Pulse Ox 09/12/22 11:43 36.6 C 76 16 131/84 97 09/12/22 08:07 36.7 C 78 16 122/80 96 09/12/22 07:36 75 09/12/22 04:13 36.6 C 75 20 109/81 96 O2 Del Method 09/12/22 11:43 Room Air 09/12/22 08:07 Room Air 09/12/22 07:36 09/12/22 04:13 Room Air PG Care Time/CCT Total # of Minutes Spent Total Time Spent with Patient: Total time spent is greater than 50% in coordination of care (as documented) at patient's floor/unit and/or counseling patient: Coding Level of Care Code 37370 SUB INP/OBS CARE 2/35MIN Diagnoses CATRACHITO (acute kidney injury) N17.9 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 Hypertension I10 Hypertension type: essential hypertension Atrial fibrillation I48.91 Left upper extremity swelling M79.89 Edema R60.9 (3) Hypertension Hypertension type: essential hypertension Qualified Code(s): I10 - Essential (primary) hypertension
--- NOTE | 2022-09-12 16:23 | Discharge Summary ---
Date of Service September 12, 2022 Admission HPI Per Admitting Provider Kermit is an 81 year old male with a PMH significant for non-obstructive CAD (last TTE in 10/2021 with EF 50-55%, RVSP 50-55), [place] [facility] [place] afib on eliquis, h/o LBBB S/P biventricular pacemaker placement in 2021, pulmonary hypertension, CKD, HTN, HLD, hypothyroidism and prediabetes who presented to the [facility] ED on 09/09/22 at the the recommendation of his PCP for ongoing BL LE and LUE swelling. In the ED vitals were noted to be stable. Labs were significant for a Cr of 2.00 (baseline appears to be around 1.5), stable alk phos of 132, initial high sen trop of 25.6, BNP of 690 (down from 709 as of 08/28). Chest xray was read as "1. Cardiomegaly and AICD without radiographic evidence of congestive failure. 2. No airspace consolidation or large pleural effusion is identified.". Xray of the left hand was read as "Soft tissue swelling with no fracture identified. If there is clinical concern for occult fracture consider short-term radiographic follow-up.". Prior to admission the patient was given 1 mg IV Bumex. Per chart review, the patient has been having ongoing issues with BL LE and LUE swelling, of which he has been following with is PCP and [facility]. Per the last PCP note from 09/03/22, his issues with ongoing edema were thought to be due to CHF as his recent renal function had been stable, he was without protein or blood, and BNP had been elevated. The patient had only been on 20 mg PO lasix daily at that time so his dose was increased to 40 mg daily. Of note, the patient had a US of the LUE obtained on 09/03/22 which was negative for DVT. He was seen by Dr. Ordoñez in the [facility]iology clinic for the same complaints on 09/04/22 and was instructed to take 40 mg lasix in the am and 20 mg HS over the holiday weekend with plans for FU this week. The patient was seen for FU in the [facility] clinic today and was sent to the ED for further evaluation as his swelling had not significantly improved. At the time of the exam the patient was lying in bed in no acute distress, history is difficult to obtain at times as the patient was unsure regarding certain details such as timing of symptoms. He states that he has been having issues with his BL LE swelling for many months. He confirms that he was initially on 20 mg PO lasix daily and had been increased to 40 mg PO daily on 09/03. He thought that he was supposed to be taking 40 mg BID of PO lasix after his Cardiology visit on 09/04 and had been taking that way since. He has not noticed a significant amount of improvement in any of his swelling since then. He states that he has not be urinating much, even with the increased diuretic doses recently. He is unsure of what a good dry weight is for him. He does not monitor his sodium or fluid intake and dose frequently eat canned food at home. Regarding his LUE swelling and left hand laceration. He is unsure if he first developed the swelling in the LUE before or after he experienced a left dorsal had laceration approximately a week ago. He states he was working at home and hit his hand on a piece of metal. He had clear drainage initially from the hand and denies any pain, bleeding, numbness/tingling, or weakness in the LUE since the injury. He has been experiencing SHAW which has continued to progress over the past 3-4 months, these symptoms improve with rest and have not occurred with rest. He states that the swelling in the LUE is slightly improved compared to last week. He has been taking his Eliquis BID as prescribed. He denies recent fever, chills, chest pain, cough, abd pain, nausea, vomiting, diarrhea, dysuria, hematuria, melena, and recent trauma. He is a full code and would want his Son to make medical decisions for him if he could not make them himself. Please refer to Dr. Aldana's attestation for any changes to the treatment plan Principal Diagnosis left arm swelling due to venous compromise acute on chronic systolic heart failure kasey with CKD3 Discharge Exam Patient has persistent left arm swelling perhaps minimally improved from the compression dressing a formal compression dressing is placed by wound care today. His lower extremity edema likewise is also improved somewhat this likely may be more because of reinforcement of dietary and salt restrictions and compliance to medications. Discharge Data Allergies Allergy/AdvReac Type Severity Reaction Status Date / Time No Known Allergies Allergy Verified 09/03/22 10:53 Consultations 09/09/22 19:06 ED Decision to Admit Stat 09/09/22 20:19 Consult Cardiology Routine 09/10/22 08:19 Consult Nephrology Routine Ordered Studies Chest X-Ray 09/09/22 17:27 SINGLE VIEW CHEST CLINICAL HISTORY: Dyspnea. FINDINGS: 2 AP, portable, upright chest radiographs are compared to study dated 04/13/2022. The patient is status post midline sternotomy and cardiac valve surgery. A 3-lead cardiac AICD is unchanged in position. The heart is enlarged noting atherosclerotic calcification of the thoracic aorta. The pulmonary vasculature is noncongested. There is mild elevation of the right hemidiaphragm with bibasilar scarring/atelectasis. No airspace consolidation or large pleural effusion is identified. No pneumothorax is seen. The skeletal structures are osteopenic. The bony thorax is grossly intact. IMPRESSION: 1. Cardiomegaly and AICD without radiographic evidence of congestive failure. 2. No airspace consolidation or large pleural effusion is identified. ACT 112: Negative or not required by law. Electronically signed by: Maikel Davies M.D. 09/09/2022 6:54 PM Hand X-Ray 09/09/22 17:32 LEFT HAND 3 VIEWS CLINICAL HISTORY: Left hand injury. FINDINGS: 3 views of the left hand are obtained. No prior studies are available for comparison at the time of dictation. The skeletal structures are osteopenic. No fracture is seen. 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 This is greatest at the first carpometacarpal and metacarpophalangeal joints. Significant soft tissue tissue edema is present throughout the wrist and hand, greatest dorsally. IMPRESSION: Soft tissue swelling with no fracture identified. If there is clinical concern for occult fracture consider short-term radiographic follow-up. Electronically signed by: Maikel Davies M.D. 09/09/2022 6:56 PM Abdomen/Pelvis CT 09/09/22 20:14 Exam(s): CT ABDOMEN + PELVIS Without Contrast EXAM: CT Abdomen and Pelvis Without Intravenous Contrast CLINICAL HISTORY: Reason for exam: BL LE and LUE swelling, rule out obstructive mass. TECHNIQUE: Axial computed tomography images of the abdomen and pelvis without intravenous contrast. Automated exposure control was utilized for the study. A dose lowering technique was utilized adhering to the principles of ALARA. COMPARISON: No relevant prior studies available. FINDINGS: Lung bases: Unremarkable. No mass. No consolidation. ABDOMEN: Liver: Unremarkable. Gallbladder and bile ducts: Unremarkable. No calcified stones. No ductal dilation. Pancreas: Unremarkable. No ductal dilation. Spleen: Unremarkable. No splenomegaly. Adrenals: Unremarkable. No mass. Kidneys and ureters: Unremarkable. No obstructing stones. No hydronephrosis. Stomach and bowel: Diverticulosis, without acute diverticulitis. No small bowel obstruction. No free intraperitoneal air. PELVIS: Appendix: Normal appendix. Bladder: RIGHT bladder diverticulum measures approximately 3.1 x 1.5 cm. No stones. Reproductive: Prostate fiduciary markers. ABDOMEN and PELVIS: Intraperitoneal space: Unremarkable. No free air. No significant fluid collection. Bones/joints: Degenerative changes of the spine. No acute fracture. No dislocation. Soft tissues: Small fat-containing RIGHT inguinal hernia. Anasarca. Vasculature: Atherosclerotic changes of the aorta. No abdominal aortic aneurysm. Lymph nodes: Unremarkable. No enlarged lymph nodes. IMPRESSION: No acute findings in the abdomen or pelvis. Electronically signed by: Carlos A Castillo MD 09/09/22 21:[address] 09/09/22 20:14 Exam(s): CT CHEST Without Contrast EXAM: CT Chest Without Intravenous Contrast CLINICAL HISTORY: Reason for exam: progressive swelling, monitor for obstructive mass. TECHNIQUE: Axial computed tomography images of the chest without intravenous contrast. Automated exposure control was utilized for the study. A dose lowering technique was utilized adhering to the principles of ALARA. COMPARISON: No relevant prior studies available. FINDINGS: Lungs: Unremarkable. No mass. No consolidation. Pleural space: Unremarkable. No pneumothorax. No significant effusion. Heart: Cardiomegaly. Calcified aorta and coronary arteries. No significant pericardial effusion. 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 This may be contributing to vascular occlusion. CTA of the chest and LEFT upper extremity are recommended. In addition, consider LEFT shoulder MRI to evaluate this large, insinuating lipoma. Sternotomy wires. Degenerative changes of the spine. No acute fracture. No dislocation. Soft tissues: Severe subcutaneous edema of the LEFT upper extremity. Vasculature: See above. Lymph nodes: Unremarkable. No enlarged lymph nodes. Tubes, lines and devices: Pacemaker leads. IMPRESSION: 1. 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 This may be contributing to vascular occlusion. CTA of the chest and LEFT upper extremity are recommended. 2. In addition, consider LEFT shoulder MRI to evaluate this large, insinuating lipoma. Electronically signed by: Carlos A Castillo MD 09/09/22 21:[address] 09/09/22 20:14 Exam(s): CT EXTREMITY LEFT UPPER Without Contrast EXAM: CT Left Upper Extremity Without Intravenous Contrast CLINICAL HISTORY: Reason for exam: significant LUE swelling, negative US outpatient. TECHNIQUE: Axial computed tomography images of the left upper extremity without intravenous contrast. Automated exposure control was utilized for the study. A dose lowering technique was utilized adhering to the principles of ALARA. COMPARISON: No relevant prior studies available. FINDINGS: Bones/joints: No acute fracture of the radius or ulna. Normal radiocapitellar and ulnohumeral articulations, for the patient's age. No distal radius fracture. Intact distal ulna. Soft tissues: Severe generalized soft tissue swelling/anasarca. No fluid collection or abscess. IMPRESSION: Severe generalized soft tissue swelling/anasarca. No fluid collection or abscess. Electronically signed by: Carlos A Castillo MD 09/09/22 21:[address] 09/09/22 20:39 Exam(s): CT EXTREMITY LEFT UPPER Without Contrast EXAM: CT Left Upper Extremity Without Intravenous Contrast - Humerus CLINICAL HISTORY: Reason for exam: significant LUE swelling, negative US for DVT. TECHNIQUE: Axial computed tomography images of the left upper extremity without intravenous contrast. Automated exposure control was utilized for the study. A dose lowering technique was utilized adhering to the principles of ALARA. COMPARISON: No relevant prior studies available. FINDINGS: Bones/joints: Osseous demineralization. No acute fracture or dislocation. Soft tissues: Lipoma in the LEFT shoulder, insinuating between the spinal glenoid notch, and occupying the locations of the axilla, supraspinatus, and if her status. This may be contributing to vascular occlusion. LEFT shoulder MRI and CTA LEFT upper extremity and chest recommended. Diffuse subcutaneous edema of the LEFT upper extremity. 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 This may be contributing to vascular occlusion. LEFT shoulder MRI and CTA LEFT upper extremity and chest recommended. Electronically signed by: Carlos A Castillo MD 09/09/22 22:17 PM Extremity Venous Study 09/10/22 11:33 US venous doppler UE LT CLINICAL HISTORY: LUE edema PROCEDURE: Left upper extremity real-time compression venous ultrasound with Duplex and color Doppler imaging. Comparison: None available at the time of this dictation. FINDINGS/IMPRESSION: There is normal compressibility of the deep venous system from the forearm through the subclavian vein. Normal vascular flow is currently identified. Subcutaneous edema is seen in the arm. ACT 112: Negative or not required by law. Electronically signed by: Daniel Hernandez M.D. 09/10/2022 3:01 PM Hospital Course (1) Swelling of both lower extremities: ongoing issues with BL LE and LUE swelling, has been followed by his PCP and [facility] is not revealing except for large lipoma that is contributing to vascular occlusion, CXR without CHF. I spoke to orthopedics on-call he did agree there is a large lipoma which may have vascular compromise however it is involving neurovascular structures and appears to be out of scope for me to be orthopedic physician. I spoke to radiation therapy who feels that lipomas may not respond to XRT unless they are rapidly growing and there is some evidence that we can see lipomas on previous MRI scan from 2017. Spoke interventional radiology to see if a biopsy could be undertaken to prove this is a lipoma but they feel that as it is a fatty mass in general that the sampling error could be high and may not be useful. Pushes images to [facility] and spoke with radiology [facility]. 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 They feel if anything needs to be approaches to be a multidisciplinary approach likely with orthopedics and vascular surgery recommended an MRI be performed as an outpatient to determine if there are any characteristics within the lipoma that may consider this being a liposarcoma. However none of this today felt to be done in an emergent fashion Spoke to the patient he was lukewarm about even pursuing aggressive care with regard to this aspect of the patient's son who acted similar resolve to this and we will discharge the patient as he is hemodynamically stable with persistent arm swelling with follow-up with outpatient physician. On the day of discharge I attempted to call his outpatient providers office his provider was not avail able likewise his outpatient rn case mgr was not available hopefully this will be cared for with an outpatient MRI and referral to [facility] orthopedics -[facility] for DVT PPX Venous insufficiency of bilateral lower extremities acute on chronic systolic heart failure - (2) Left upper extremity swelling: CT with lipoma that maybe causing vascular compromise negative US of the LUE for DVT on Patient did have a puncture wound to the dorsum of his left hand a few days prior to coming in. This is with a metal object that was necessarily sterile necessarily soiled. To this end because he has both aortic valve and a defibrillator pacemaker blood cultures were obtained by cardiology and they are negative today. Completed 3 days of daptomycin and Zosyn therapy. Inflammatory markers are not significantly elevated clinically does not appear to be infected antibiotics were continued at discharge (3) Atrial fibrillation: -HR currently rate controlled with pacemaker/AICD, AICD was placed for V. tach in the past Patient's defibrillator is MRI compatible with the [employer] serial number [id number]. 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 -Continue continue amiodarone and metoprolol Troponin elevated 25 repeat 25 likely this is patient has mild elevation in troponin or acute coronary syndrome if anything might be demand ischemia could be from renal failure Chronic stable hypertension and heart failure reduced ejection fraction treated with metoprolol Echo 09/10/22 EF 35-40%, LVH with borderline dilation, prosthetic valve gradient normal (4) CKD (chronic kidney disease): -Acute kidney injury on chronic kidney disease stage III no real great improvement with diuresis was continued will go home on 1 core dose of his lisinopril continue his diuretic doses at home (5) Hypothyroidism: -Continue levothyroxine (6) Depression: -Continue wellbutrin Total Time Total Time Spent Total Time Spent (In Minutes): It required greater than 30 minutes to prepare this patient for discharge Discharge Plan Discharge Items Patient Disposition: Home - Self-Care Reason For Visit: SWELLING Discharge Diagnosis: acute left arm swelling felt secondary to large lipoma compromising subclavian vein acute on chronic systolic heart failure Activity: Per Instructions section Activity Comment: keep arm elevated and keep compression Non-emergency contact: Primary Care Provider and Specialist Call non-emergency contact if: your symptoms worsen Follow-up/Referrals: Juan Manuel Early III, CRNP [Primary Care Provider] - 09/17/22 9:20 am (PCP follow up: September 17, 2022 @ 9:20) Diet: Low Sodium (2gm) Ambulatory Orders: Basic Metabolic Panel (Routine) Timeframe: 3 Days Location: Determined by Patient Ordered By: Taiwo Coleman Attending Provider Instructions: Initially you are swelling is secondary to a large fatty growth that is comp romising the veins return blood from your arm To be important that you follow-up with your provider Juan Manuel early arrange an outpatient MRI of this area and coordinate likely referral to a tertiary center for orthopedic evaluation. Without removing this lipoma or improving your flow will likely continue have swelling of your arm you could have a blood clot in it. We test you during her hospital stay you do not have any blood clot in the arm currently Is important you take care of your heart failure watching your salt watching your body weight and being in contact with Miguel Peterson to manage your diuretic therapy It is possible you may have some outpatient therapy to help reduce the swelling your arm, this is traditionally called lymphedema therapy, you can be set up with [facility] or you can see them in their office and they will help improve your swelling as time goes forward will be given a prescription for this at time of discharge Call 911 and go to the Emergency Room if: * You have tightness or pain in your chest that does not go away with rest or Nitroglycerin * You are very short of breath even with rest Call your doctor if any of the following symptoms or problems start or get worse: * Shortness of breath or difficulty breathing * Wake up at night short of breath * Chest pain * Cough * Swelling of your hands, fee, or legs * More fatigued or tired with your normal activity * Palpitations - sudden fast heart beats WEIGHT * Weigh yourself every morning after using the bathroom. * Use the same scale. * Wear the same amount of clothing. * Write your weight down on your chart. * Call your doctor if you gain more than 2-3 pounds in 1-2 days. MEDICATIONS * Use this discharge instruction sheet for instructions. * Take your medications at the time your doctor ordered. * Do not skip a dose of your medicines. * If you miss a dose of medicine, take as soon as possible, but DO NOT DOUBLE A DOSE. * Read your medicine information when you get home. * Know all of the side effects of your medicine. * Call your doctor's office if you have any side effects. * Be sure all of your doctors know what medicine and herbs you take (including cold, flu, and herbal medicine). * Pain Medicine: If you do not get relief from your pain, please call your doctor for help. Take the following with you to your follow-up doctor appointments: * Weight Chart * Medication List * List of questions Do not drink excessive alcohol, beer or wine. Addtl Repeat Chief Provider Instructions: [facility] office is at [address], [place], [place] 04/28/2004 phone number is [phone] please call for an appointment Pending Studies at Discharge: No Stand-Alone Forms: [employer], Smoking Cessation Medications and DC Order Prescriptions: Continued bupropion HCl 150 mg tablet sustained-release 12 hr 150 mg PO BID Qty: 180 2RF atorvastatin 80 mg tablet 80 mg PO HS Qty: 90 3RF metoprolol succinate 50 mg tablet extended release 24 hr 50 mg PO QAM Qty: 30 0RF omeprazole 20 mg capsule,delayed release(DR/EC) 20 mg PO DAILY Qty: 30 2RF levothyroxine [Synthroid] 50 mcg tablet 50 mcg PO DAILY Qty: 90 1RF Rx Instructions: Take first thing in the morning on an empty stomach with an 8 oz glass of water. Do not eat or take other medications for 30 minutes. apixaban 5 mg tablet 5 mg PO BID Qty: 180 3RF furosemide 20 mg tablet 40 mg PO DAILY Qty: 60 0RF potassium chloride 10 mEq tablet extended release 10 meq PO DAILY Qty: 30 2RF amiodarone 200 mg tablet 200 mg PO DAILY Qty: 90 3RF fluocinonide 0.05 % Cream 1 applic TOPICAL BID PRN (Reason: .rash) folic acid 400 mcg tablet 0.4 mg PO QAM Changed lisinopril 20 mg tablet 10 mg PO DAILY Qty: 180 1RF Discharge Orders: Discharge Order- CHF (Routine); Ordered 09/12/22 Ordered By: Taiwo Hernandez Admission Data Admit Date/Time: 09/09/22 19:46 Attending Provider: Taiwo Hernandez Admit Provider: Antione Elaine Primary Care Provider: Juan Manuel Early III Other Providers: Antione Elaine ; Falguni Headley ; Ronnie Ordoñez Coding Level of Care Code 51916 INP/OBS DISCH >30 MIN Diagnoses Swelling of both lower extremities M79.89 Left upper extremity swelling M79.89 Atrial fibrillation I48.91 CKD (chronic kidney disease) N18.9 Hypothyroidism E03.2 Hypothyroidism type: due to medication Depression F32.0 Depression Type: major depressive disorder Major depression recurrence: single episode Active/Remission status: currently active Major depression episode severity: mild
== END 2022-09-12 17:49 | disposition home or self-care (01) | DRG 291 ==
LOC: ED 14:10 → EDINP 19:46 → SUATTDRO 19:46 → 2W 22:27

== ENCOUNTER 2022-10-07 16:19 | Inpatient (IN) ==
[2022-10-07 17:20] LABS: Basophils # (auto) 0.05 K/uL (0-0.2); Basophils % (auto) 0.7 %; Eosinophils # (auto) 0.08 K/uL (0-0.50); Eosinophils % (auto) 1.2 %; Hemoglobin 12.2 g/dl (14.0-18.0); Immature Granulocytes # (auto) 0.02 K/uL (0.01-0.20); Immature Granulocytes % (auto) 0.3 %; Lymphocytes # (auto) 1.01 K/uL (1.2-3.4); Lymphocytes % (auto) 14.9 %; Mean Corpuscular Hemoglobin 28.8 pg (25.0-34.0); Mean Corpuscular Volume 87.5 fL (80.0-100.0); Mean Platelet Volume 11.8 fL (9.4-12.4); Monocytes # (auto) 0.71 K/uL (0.11-0.59); Monocytes % (auto) 10.5 %; Neutrophils # (auto) 4.91 K/uL (1.40-6.50); Neutrophils % (auto) 72.4 %; Platelet Count 170 K/uL (130-400); RDW Coefficient of Variation 16.4 % (11.5-14.5); RDW Standard Deviation 52.3 fL (36.4-46.3); Red Blood Count 4.23 M/uL (4.70-6.10); White Blood Count 6.78 K/ul (4.8-10.8)
[2022-10-07 17:30] LABS: Albumin Level 3.7 gm/dl (3.4-5.0); BUN Creatinine Ratio 20.5 (10-20); Bilirubin,Total 0.8 mg/dl (0.2-1.0); Calcium 8.9 mg/dl (8.6-10.3); Creatinine Clr Calc Pharmacy 37.1 ml/min; Est GFR (African American) 38.2 ml/min; Est GFR (Non-African American) 32.9 ml/min; Globulin 3.7 gm/dl (2.5-4.0); Potassium 4.5 mmol/L (3.5-5.1); Total Protein 7.4 gm/dl (6.0-8.3)
[2022-10-07 17:37] LABS: INR 1.1 (0.9-1.1); Prothrombin Time 12.4 Seconds (9.0-12.0)
[2022-10-07] MEDS ORDERED: FUROSEMIDE 40 MG/4 ML VIAL IV ONE (18:07)
--- NOTE | 2022-10-07 18:11 | Emergency Department Note ---
Impression & Plan Hypervolemia, Heart failure, diastolic, with acute decompensation, Stage 3b chronic kidney disease, PAF (paroxysmal atrial fibrillation), Subclavian vein obstruction ED Provider Note NAME: TROY TOSCANO AGE: 81 SEX: M ARRIVES VIA: Walk-In INFORMANT: Patient ED PROVIDER(S): Wolfgang Montiel MD CHIEF COMPLAINT: Edema, referred PLAN: Disposition: Admit MEDICAL DECISION MAKING: The patient is a pleasant 81-year-old gentleman with a past medical history of ventricular tachycardia status post BiV ICD in March 2022, history of severe with secondary to bicuspid AV status post bioprosthetic AV in 2010, nonobstructive CAD, hypertension, pulmonary hypertension, left bundle branch block, hyperlipidemia, paroxysmal atrial fibrillation on amiodarone, metoprolol and Eliquis who presents to the emergency department referred from his [facility] cardiology office for hypervolemia in the setting of recent admission to this facility for the same and for left upper extremity lymphedema which was subsequently attributed to large axillary lipoma causing compression. He recently had CTA of his chest and MRI of the shoulder and there is no arterial occlusion noted. The patient reported on his cardiology follow-up increasing swelling since his discharge and increased dyspnea with minimal exertion. He was referred to the emergency department for admission and and treatment with IV Lasix and drip. The patient denies any fevers, chills, cough, congestion, GI or symptoms. On arrival the patient is no acute distress, afebrile stable vital signs. O2 s aturation is 97% on room air with normal respiratory effort. He does appear hypervolemic with 3+ left upper extremity pitting edema and 3+ bilateral lower extremity pitting edema with serous weeping. EKG is paced without overt acute ischemia. Chest x-ray is notable for pulmonary vascular congestion and bibasilar scarring/atelectasis. WBC within normal limits. H/H 12.2/37, improved from prior. Platelets within normal limits. Chemistry without metabolic acidosis. Creatinine 1.8, similar to prior values in the setting of CKD. LFTs unremarkable. BNP 600, similar to prior in the setting of the patient's CKD and CHF. Given the patient's worsening edema since his last admission patient agrees with plan for admission for further management. Treatment initiated with 40 mg of IV Lasix. Case was discussed with Dr. ARLINE Ko hospitalist, who will evaluate the patient for admission. Triage Nursing notes reviewed and agree them. Prior/outside medical records reviewed Vital Signs: reviewed Differential diagnosis: Reactive airway disease, pneumonia, pneumothorax, COPD, CHF, infections, cardiac ischemia, pulmonary embolism, musculoskeletal, gastrointestinal, as well as other pathologies. ER treatment provided: See below. Diagnostics interpreted by me: ECG: AV dual paced rhythm, 75 bpm, no ectopy, no overt acute ischemia. Cardiac Monitoring: An order for continuous cardiac monitoring was placed and de monstrated AV dual paced rhythm, 75 bpm, no ectopy. Laboratory studies: See below Imaging studies: See below Consultation(s): Case was discussed with ARLINE Hobson hospitalist, who will evaluate the patient for admission. HPI: The patient is a pleasant 81-year-old gentleman with a past medical history of ventricular tachycardia status post BiV ICD in March 2022, history of severe with secondary to bicuspid AV status post bioprosthetic AV in 2010, nonobstructive CAD, hypertension, pulmonary hypertension, left bundle branch block, hyperlipidemia, paroxysmal atrial fibrillation on amiodarone, metoprolol and Eliquis who presents to the emergency department referred from his [facility] cardiology office for hypervolemia in the setting of recent admission to this facility for the same and for left upper extremity lymphedema which was subsequently attributed to large axillary lipoma causing compression. He recently had CTA of his chest and MRI of the shoulder and there is no arterial occlusion noted. The patient reported on his cardiology follow-up increasing swelling since his discharge and increased dyspnea with minimal exertion. He was referred to the emergency department for admission and and treatment with IV Lasix and drip. The patient denies any fevers, chills, cough, congestion, GI or symptoms. ROS: See above HPI for pertinent positives & negatives. A total of 10 systems reviewed and were otherwise negative. VITALS:See Below PHYSICAL EXAMINATION: GENERAL: Awake, alert, well-appearing, in no distress HENT: Normocephalic, atraumatic. Oropharynx unremarkable. EYES: Normal conjunctiva. Sclera non-icteric. NECK: Supple. No nuchal rigidity. FROM. No JVD. RESPIRATORY: Clear to auscultation. CARDIAC: Regular rate, normal rhythm. Extremities warm and well perfused. Pulses equal. ABDOMEN: Soft, non-distended. No tenderness to palpation. No rebound or guarding. No masses. RECTAL: Deferred. MUSCULOSKELETAL: Chest examination reveals no tenderness. The back is symmetrical on inspection without obvious abnormality. There is no CVA tenderness to palpation. No joint edema. EXTREMITIES: 3+ left upper extremity pitting edema and 3+ bilateral lower extremity pitting edema with serous weeping. NEURO: Normal sensorium. No sensory or motor deficits noted. SKIN: No rash or jaundice noted. Wolfgang Montiel MD Past Med/Surg History Medical History Acute pancreatitis Cervical radiculopathy COVID-19 Difficulty reading due to visual problem Encounter for pre-operative examination Former smoker History of snuff use Hyperhomocystinemia Hypertension Hyperthyroidism Left bundle branch block New onset atrial fibrillation Prediabetes Presence of combination internal cardiac defibrillator (ICD) and pacemaker 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, 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, clinical stage TIc Status post biopsies, biopsy stage TIIa Divine grade 3+3 Status post seed implant with cesium 131 as boost 12/08/2006 Status post completion of IMRT/IGRT 02/26/2007" Prostate cancer Pure hypercholesterolemia PVC (premature ventricular contraction) Stage 3b chronic kidney disease Thrombocytopenia Ventricular tachycardia Surgical History H/O aortic valve repair H/O hernia repair History of laparoscopic cholecystectomy (11/08/21) lap ish/ercp Nov 01 Chambers Status post aortic valve replacement with bioprosthetic valve Family History Mother Heart disease Brother Cancer Lung cancer Unknown Prostate cancer Father Prostate cancer Denies family history of Colon cancer Ovarian cancer Myocardial infarction Breast cancer Social History Smoking Status: Never smoker Tobacco Type: Cigarettes and Smokeless Tobacco (Dip or Chew) Age Started Using Tobacco: 8; Age Quit Using Tobacco: 75; packs per day: 2.5; Second Hand Exposure: No; Do You Dip or Chew Tobacco: No; Hx Alcohol Use: Yes Alcohol type: beer Hx Substance Use: No Preferred Language: [place]ib[place]ian Communication Ability: Effective Visual Impairment: No Limitations Hearing Ability: Use of Hearing Aid 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 Operator Required: No Beliefs That Will Affect Care: None marital status: / Current Living Situation: Alone Current Living Situation Comment: home alone with cat current occupational status: retired How many Children do You have: 2 Other Information That Helps Us Care for You: No Feels Safe at Home: Yes Safety Concerns: Feels Safe At This Time Childhood Exposure to Second-Hand Smoke: Yes Diet: regular Diet Comment: regular Dental Care, Regularly: No Physical Activity Frequency: Does not Exercise Seatbelt Use: never Sunscreen Use: No Do you think of yourself as: straight/heterosexual Assistive Devices: Cane, Denture - Upper and Glasses Allergies Allergies Allergy/AdvReac Type Severity Reaction Status Date / Time No Known Allergies Allergy Verified 09/22/22 15:56 Home Meds Home Medications Medication Instructions Recorded Confirmed fluocinonide 0.05 % topical cream 1 applic topical BID PRN .rash 11/07/21 10/07/22 folic acid 400 mcg tablet 800 mcg PO QAM 09/22/22 10/07/22 Previous Rx's Medication Instructions Recorded bupropion HCl 150 mg tablet,12 hr 150 mg PO BID #180 ea 10/29/21 sustained-release atorvastatin 80 mg tablet 80 mg PO HS #90 tabs 03/28/22 metoprolol succinate 50 mg 50 mg PO QAM #30 tabs 04/22/22 tablet,extended release 24 hr omeprazole 20 mg capsule,delayed 20 mg PO DAILY #30 caps 04/22/22 release apixaban 5 mg tablet 5 mg PO BID #180 tabs 04/24/22 levothyroxine 50 mcg tablet 50 mcg PO DAILY #90 tabs 08/27/22 (Synthroid) potassium chloride 10 mEq 10 meq PO DAILY #30 tabs 09/03/22 tablet,extended release lisinopril 20 mg tablet 10 mg PO DAILY #180 tabs 09/12/22 amiodarone 200 mg tablet 200 mg PO DAILY #90 tabs 09/22/22 furosemide 20 mg tablet 40 mg PO DAILY #60 tabs 10/07/22 Results & Data (ED) Vital Signs Vital Signs - 24 hr 10/07/22 16:31 10/07/22 16:46 10/07/22 18:35 Temperature 36.6 C Temperature Source Temporal Artery Scan Pulse Rate 74 75 Pulse Rate [Radial] 75 Pulse Rhythm [Radial] Regular Pulse Strength [Radial] Normal Respiratory Rate 16 17 Respiratory Effort / Characteristics Non-Labored Spontaneous Respiratory Depth Normal Respiratory Pattern Regular Blood Pressure 136/88 Blood Pressure [Right Arm] 124/85 Blood Pressure Mean 104 Blood Pressure Mean [Right Arm] 98 Pulse Oximetry 97 95 Oxygen Delivery Method Room Air Room Air Sepsis Recent Fever Within 48 Hours No Sepsis New/Unexplained Change in Mental Status No Sepsis Action Taken by Nursing No Action Required 10/07/22 17:00 10/07/22 17:30 10/07/22 18:00 Temperature Temperature Source Pulse Rate 75 75 75 Pulse Rate [Radial] Pulse Rhythm [Radial] Pulse Strength [Radial] Respiratory Rate 18 18 18 Respiratory Effort / Characteristics Respiratory Depth Respiratory Pattern Blood Pressure 135/90 130/91 137/87 Blood Pressure [Right Arm] Blood Pressure Mean 100 105 99 Blood Pressure Mean [Right Arm] Pulse Oximetry 97 96 95 Oxygen Delivery Method Room Air Room Air Room Air Sepsis Recent Fever Within 48 Hours Sepsis New/Unexplained Change in Mental Status Sepsis Action Taken by Nursing 10/07/22 18:30 Temperature Temperature Source Pulse Rate 80 Pulse Rate [Radial] Pulse Rhythm [Radial] Pulse Strength [Radial] Respiratory Rate 20 Respiratory Effort / Characteristics Respiratory Depth Respiratory Pattern Blood Pressure 124/85 Blood Pressure [Right Arm] Blood Pressure Mean 88 Blood Pressure Mean [Right Arm] Pulse Oximetry 95 Oxygen Delivery Method Room Air Sepsis Recent Fever Within 48 Hours Sepsis New/Unexplained Change in Mental Status Sepsis Action Taken by Nursing Laboratory Data Attestation: I reviewed the patient's lab results. 10/07/22 16:48 10/07/22 16:48 Lab Results 10/07/22 10/07/22 10/07/22 Range/Units 16:48 16:48 16:48 WBC 6.78 (4.8-10.8) K/ul RBC 4.23 L (4.70-6.10) M/uL Hgb 12.2 L (14.0-18.0) g/dl Hct 37.0 L (42.0-52.0) % MCV 87.5 (80.0-100.0) fL MCH 28.8 (25.0-34.0) pg MCHC 33.0 (32.0-36.0) g/dL RDW Std Deviation 52.3 H (36.4-46.3) fL RDW Coeff of Yony 16.4 H (11.5-14.5) % Plt Count 170 (130-400) K/uL MPV 11.8 (9.4-12.4) fL Immature Gran % (Auto) 0.3 % Neut % (Auto) 72.4 % Lymph % (Auto) 14.9 % [place] % (Auto) 10.5 % Eos % (Auto) 1.2 % Baso % (Auto) 0.7 % Neut # (Auto) 4.91 (1.40-6.50) K/uL Lymph # (Auto) 1.01 L (1.2-3.4) K/uL [place] # (Auto) 0.71 H (0.11-0.59) K/uL Eos # (Auto) 0.08 (0-0.50) K/uL Baso # (Auto) 0.05 (0-0.2) K/uL Immature Gran # (Auto) 0.02 (0.01-0.20) K/uL ESR (0-20) mm/hr PT 12.4 H (9.0-12.0) Seconds INR 1.1 (0.9-1.1) Sodium 136 (136-145) mmol/L Potassium 4.5 (3.5-5.1) mmol/L Chloride 104 (98-107) mmol/L Carbon Dioxide 26 (21-32) mmol/L Anion Gap 6 (3-11) BUN 38 H (6-23) mg/dl Creatinine 1.85 H (0.6-1.4) mg/dl Est Cr Clr Drug Dosing 37.1 ml/min Est GFR ( Amer) 38.2 ml/min Est GFR (Non-Af Amer) 32.9 ml/min BUN/Creatinine Ratio 20.5 H (10-20) Glucose 111 H (70-99(Fasting)) mg/dl Calcium 8.9 (8.6-10.3) mg/dl Phosphorus 3.6 (2.5-4.9) mg/dl Magnesium 2.1 (1.7-2.4) mg/dl Total Bilirubin 0.8 (0.2-1.0) mg/dl AST 24 (13-39) U/L ALT 28 (7-52) U/L Alkaline Phosphatase 144 H (34-104) U/L C-Reactive Protein 0.78 H (0-0.5) mg/dl B-Natriuretic Peptide (0-100) pg/ml Total Protein 7.4 (6.0-8.3) gm/dl Albumin 3.7 (3.4-5.0) gm/dl Globulin 3.7 (2.5-4.0) gm/dl Albumin/Globulin Ratio 1.0 (0.9-2) SARS-CoV-2, RNA, NAAT (NEGATIVE) 10/07/22 10/07/22 10/07/22 Range/Units 16:48 16:48 18:33 WBC (4.8-10.8) K/ul RBC (4.70-6.10) M/uL Hgb (14.0-18.0) g/dl Hct (42.0-52.0) % MCV (80.0-100.0) fL MCH (25.0-34.0) pg MCHC (32.0-36.0) g/dL RDW Std Deviation (36.4-46.3) fL RDW Coeff of Yony (11.5-14.5) % Plt Count (130-400) K/uL MPV (9.4-12.4) fL Immature Gran % (Auto) % Neut % (Auto) % Lymph % (Auto) % [place] % (Auto) % Eos % (Auto) % Baso % (Auto) % Neut # (Auto) (1.40-6.50) K/uL Lymph # (Auto) (1.2-3.4) K/uL [place] # (Auto) (0.11-0.59) K/uL Eos # (Auto) (0-0.50) K/uL Baso # (Auto) (0-0.2) K/uL Immature Gran # (Auto) (0.01-0.20) K/uL ESR 35 H (0-20) mm/hr PT (9.0-12.0) Seconds INR (0.9-1.1) Sodium (136-145) mmol/L Potassium (3.5-5.1) mmol/L Chloride (98-107) mmol/L Carbon Dioxide (21-32) mmol/L Anion Gap (3-11) BUN (6-23) mg/dl Creatinine (0.6-1.4) mg/dl Est Cr Clr Drug Dosing ml/min Est GFR ( Amer) ml/min Est GFR (Non-Af Amer) ml/min BUN/Creatinine Ratio (10-20) Glucose (70-99(Fasting)) mg/dl Calcium (8.6-10.3) mg/dl Phosphorus (2.5-4.9) mg/dl Magnesium (1.7-2.4) mg/dl Total Bilirubin (0.2-1.0) mg/dl AST (13-39) U/L ALT (7-52) U/L Alkaline Phosphatase (34-104) U/L C-Reactive Protein (0-0.5) mg/dl B-Natriuretic Peptide 613 H (0-100) pg/ml Total Protein (6.0-8.3) gm/dl Albumin (3.4-5.0) gm/dl Globulin (2.5-4.0) gm/dl Albumin/Globulin Ratio (0.9-2) SARS-CoV-2, RNA, NAAT NEGATIVE (NEGATIVE) Administered Medications Apixaban (Apixaban 5 Mg Tablet) 5 mg PO BID [facility] Stop: 11/06/22 22:12 Last Admin: 10/07/22 23:42 Dose: 5 mg Documented By: KEON Atorvastatin Calcium (Atorvastatin 40 Mg Tab) 80 mg PO HS [facility] Stop: 11/06/22 22:12 Last Admin: 10/07/22 23:42 Dose: 80 mg Documented By: KEON Bupropion HCl (Bupropion Sr 150 Mg Tabcr) 150 mg PO BID [facility] Stop: 11/06/22 22:12 Last Admin: 10/07/22 23:42 Dose: 150 mg Documented By: KEON Cephalexin HCl (Cephalexin 500 Mg Cap) 500 mg PO QID JUANJOSE; Protocol Stop: 10/15/22 00:59 Last Admin: 10/07/22 23:41 Dose: 500 mg Documented By: KEON Discontinued Medications Cephalexin HCl (Cephalexin 500 Mg Cap) 500 mg PO NOW STA; Protocol Stop: 10/07/22 19:20 Last Admin: 10/07/22 20:05 Dose: 500 mg Documented By: MANDEEP Furosemide (Furosemide 40 Mg/4 Ml Vial) 40 mg IV ONE ONE Stop: 10/07/22 18:08 Last Admin: 10/07/22 18:24 Dose: 40 mg Documented By: [facility] Imaging Data Radiologist's Impression: Chest X-Ray 10/07/22 18:04 SINGLE VIEW CHEST CLINICAL HISTORY: Dyspnea. FINDINGS: An AP, portable, upright chest radiograph is compared to study dated 09/09/2022. The examination is degraded by portable technique and apical lordotic positioning. A 3-lead cardiac AICD is unchanged in position. The patient is status post midline sternotomy. The heart is enlarged noting atherosclerotic calcification of the thoracic aorta. There is pulmonary vascular congestion. There is bibasilar scarring/atelectasis. No airspace consolidation or large pleural effusion is identified. No pneumothorax is seen. The skeletal structures are osteopenic. The bony thorax is grossly intact. IMPRESSION: 1. Cardiomegaly and AICD with evidence of congestive failure. 2. No airspace consolidation or large pleural effusion is identified ACT 112: Negative or not required by law. Electronically signed by: Maikel Davies M.D. 10/07/2022 6:26 PM Discharge Plan Visit Data Chief Complaint: Referred by Doctor Stated Complaint: REF BY DOC,SWELLING IN ARMS,LEGS,HANDS ED Provider: Wolfgang Montiel Discharge Problem: Hypervolemia, Heart failure, diastolic, with acute decompensation, Stage 3b chronic kidney disease, PAF (paroxysmal atrial fibrillation), Subclavian vein obstruction Patient Disposition: Admitted As Inpatient Discharge Instructions Interventions: ED Discharge Assessment Last Done: 10/07/22 22:13 Hypervolemia Qualifiers: Hypervolemia type: unspecified Qualified Code(s): E87.70 - Fluid overload, unspecified Subclavian vein obstruction Qualifiers: Laterality: left Qualified Code(s): I82.B12 - Acute embolism and thrombosis of left subclavian vein
--- NOTE | 2022-10-07 18:29 | XRay Report ---
SINGLE VIEW CHEST CLINICAL HISTORY: Dyspnea. FINDINGS: An AP, portable, upright chest radiograph is compared to study dated 09/09/2022. The examina tion is degraded by portable technique and apical lordotic positioning. A 3-lead cardiac AICD is unch anged in position. The patient is status post midline sternotomy. The heart is enlarged noting athero sclerotic calcification of the thoracic aorta. There is pulmonary vascular congestion. There is bibas ilar scarring/atelectasis. No airspace consolidation or large pleural effusion is identified. No pneu mothorax is seen. The skeletal structures are osteopenic. The bony thorax is grossly intact. IMPRESSION: 1. Cardiomegaly and AICD with evidence of congestive failure. 2. No airspace consolidation or large pleural effusion is identified ACT 112: Negative or not required by law. Electronically signed by: Maikel Davies M.D. 10/07/2022 6:26 PM
--- NOTE | 2022-10-07 18:40 | History & Physical Report ---
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 -Noted to have cardiomegaly with evidence of congestive failure on CXR today -BNP at 613 (down from 690 as of 09/09) -S/P 40 mg IV lasix in the ED, will continue with 40 mg IV BID17 for now -Monitor intake and output q6h -Monitor daily weight and renal function while on IV diuretics -Will get limited TTE tomorrow for further evaluation -Eliquis for DVT PPX -HH diet with 1800 mL fluid restriction -AM CBC, BMP (2) Cellulitis of leg, right: Plan: -Patient with significant circumferential erythema of the RLE, no erythema noted on the LLE -Exam findings are consistent with cellulitis -The patient is stable, non-toxic, and without leukocytosis -Will start PO Keflex and obtain MRSA swab, can escalate abx in the event of positive MRSA swab and/or decompensation (3) Heart failure, diastolic, with acute decompensation: Plan: -See fluid overload (4) Subclavian vein obstruction: Plan: -Recently diagnosed in last admission -LUE appears more swollen than last admission as I admitted him earlier this month as well -Intact sensation and distal pulses, no significant pain or neuro symptoms -Will need to see how his volume status improves with consistent diuresis, if no significant improvement will need to consider for evaluation for surgical intervention at a tertiary care facility (5) PAF (paroxysmal atrial fibrillation): Plan: -Stable, currently in NSR today -Continue Eliquis, metoprolol, and amiodarone (6) Dyslipidemia, goal LDL below 70: Plan: -Continue statin (7) Nonobstructive atherosclerosis of coronary artery: Plan: -Stable -Continue eliquis and statin (8) Hypothyroidism: Plan: -Continue levothyroxine (9) Hypertension: Plan: -Stable -Continue lisinopril -Monitor for hypotension while on IV diuresis Plan The patient was seen with and discussed with Dr. 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 In the ED vitals were stable. Labs were significant for an alk phos of 144. Chest xray was read as " Prior to admission the patient was given 40 mg IV lasix. Per chart review, the patient was admitted to [facility] from 09/09-09/[address] of the chest was obtained and revealed a large lipoma which is compressing the left subclavian vein and left upper extremity veins. This, along with his CHF was thought to be contributing to his significant swelling. The hospital medicine team spoke with multiple specialists including [facility] Orthopedics, [facility] IR, and [facility] radiation oncology. 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 [facility] radiation onco logy did not feel radiation therapy would provide significant benefit as the lipoma does not appear to be aggressive. It was determined that if the patient would need surgical intervention, this would need to be coordinated at a tertiary care facility as the procedure would likely require orthopedics and vascular surgery. Discussions were held with the patient and his family who were "lukewarm" with surgical management at that time. Outpatient CTA of the left upper extremity was obtained on 10/06 and was read as "1. Normal CT angiogram of the left upper extremity. The upper extremity arteries are widely patent. 2. There is diffuse soft tissue edema and subcutaneous fluid throughout the left upper extremity. No soft tissue gas is seen. Clinical correlation will be required. 3. There is also edema of the left body wall. 4. A cardiac pacemaker is in place. 5. Large lipoma around the left scapula as detailed above.". MRI of the left shoulder WO con was also obtained and was read as "1. Extensive lipomas are seen in the rotator cuff. Otherwise no acute abnormalities, in particular no evidence rotator cuff tear. 2. Osteoarthritic changes are seen in the shoulder joint.". At the time of the exam the patient was sitting in bed in no acute distress. The patient is a poor historian and lives by himself without consistent help. He states that he has been having more swelling in his LE's, LUE, and increased SHAW and orthopnea since last admission. He denies fever, chills, chest pain, cough, abd pain, nausea, vomiting, diarrhea, dysuria, hematuria, melena, and recent trauma. While confirming his med rec the patient had confusion as to his lasix dosing. He currently has two different med lists with differing doses of PO lasix, one with 40 mg PO daily and one with 20 mg PO daily. Please refer to Dr. Ko's attestation for any changes to the treatment plan Allergies Allergy/AdvReac Type Severity Reaction Status Date / Time No Known Allergies Allergy Verified 09/22/22 15:56 Home Medications Medication Instructions Recorded Confirmed Type bupropion HCl 150 mg tablet,12 hr 150 mg PO BID #180 ea 10/29/21 10/07/22 Rx sustained-release fluocinonide 0.05 % topical cream 1 applic topical BID PRN .rash 11/07/21 10/07/22 History atorvastatin 80 mg tablet 80 mg PO HS #90 tabs 03/28/22 10/07/22 Rx metoprolol succinate 50 mg 50 mg PO QAM #30 tabs 04/22/22 10/07/22 Rx tablet,extended release 24 hr omeprazole 20 mg capsule,delayed 20 mg PO DAILY #30 caps 04/22/22 10/07/22 Rx release apixaban 5 mg tablet 5 mg PO BID #180 tabs 04/24/22 10/07/22 Rx levothyroxine 50 mcg tablet 50 mcg PO DAILY #90 tabs 08/27/22 10/07/22 Rx (Synthroid) potassium chloride 10 mEq 10 meq PO DAILY #30 tabs 09/03/22 10/07/22 Rx tablet,extended release lisinopril 20 mg tablet 10 mg PO DAILY #180 tabs 09/12/22 10/07/22 Rx amiodarone 200 mg tablet 200 mg PO DAILY #90 tabs 09/22/22 10/07/22 Rx folic acid 400 mcg tablet 800 mcg PO QAM 09/22/22 10/07/22 History cephalexin 500 mg capsule 500 mg PO QID #40 caps 10/09/22 Rx furosemide 40 mg tablet (Lasix) 40 mg PO BID #60 tabs 10/09/22 Rx spironolactone 25 mg tablet 25 mg PO QAM #30 tabs 10/09/22 Rx Past Med/Surg History Medical History Acute pancreatitis Cervical radiculopathy COVID-19 Difficulty reading due to visual problem Encounter for pre-operative examination Former smoker History of snuff use Hyperhomocystinemia Hypertension Hyperthyroidism Left bundle branch block New onset atrial fibrillation Prediabetes Presence of combination internal cardiac defibrillator (ICD) and pacemaker 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, 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, clinical stage TIc Status post biopsies, biopsy stage TIIa Graton grade 3+3 Status post seed implant with cesium 131 as boost 12/08/2006 Status post completion of IMRT/IGRT 02/26/2007" Prostate cancer Pure hypercholesterolemia PVC (premature ventricular contraction) Stage 3b chronic kidney disease Thrombocytopenia Ventricular tachycardia Surgical History H/O aortic valve repair H/O hernia repair History of laparoscopic cholecystectomy (11/08/21) lap ish/ercp Nov 01 Chambers Status post aortic valve replacement with bioprosthetic valve Family History Mother Heart disease Brother Cancer Lung cancer Unknown Prostate cancer Father Prostate cancer Denies family history of Colon cancer Ovarian cancer Myocardial infarction Breast cancer Social History Smoking Status: Never smoker Tobacco Type: Cigarettes and Smokeless Tobacco (Dip or Chew) Age Started Using Tobacco: 8; Age Quit Using Tobacco: 75; packs per day: 2.5; Second Hand Exposure: No; Do You Dip or Chew Tobacco: No; Hx Alcohol Use: Yes Alcohol type: beer Hx Substance Use: No Preferred Language: Moroccan Communication Ability: Effective Visual Impairment: No Limitations Hearing Ability: Use of Hearing Aid Facility Practice Specialist Required: No Beliefs That Will Affect Care: None marital status: / Current Living Situation: Alone Current Living Situation Comment: home alone with cat current occupational status: retired How many Children do You have: 2 Feels Safe at Home: Yes Childhood Exposure to Second-Hand Smoke: Yes Diet: regular Diet Comment: regular Dental Care, Regularly: No Physical Activity Frequency: Does not Exercise Seatbelt Use: never Sunscreen Use: No Do you think of yourself as: straight/heterosexual Assistive Devices: Cane Physical Exam Physical Exam: Physical Exam: General: In no acute distress, stated age, chronically ill-appearing but non- toxic HEENT: Normocephalic, atraumatic, no scleral icterus, pupils around round, symmetrical, and reactive to light, moist mucus membranes, trachea midline, no thyromegaly Chest/Pulm: No respiratory distress, symmetrical chest expansion, decreased breath sounds in the BL lower lung us, otherwise CTA throughout Cardiac: RRR, no murmurs noted Abdomen: Negative for ascites and bruising, normoactive bowel sounds, soft, non-tender to palpation throughout Musculoskeletal: No acute trauma on exam, full ROM in the BL upper and lower extremities Extremities: Patient with significant swelling in the LUE and symmetrical 3+ swelling in the BL lower extremities, intact and symmetrical distal pulses in the BL upper and lower extremities Skin: Patient with circumferential erythema of the RLE, no palpable fluctuance, no signs of infection on the LLE Neuro: Alert and oriented to person, place, month, year, and president, no focal defects, CN II-XII tested and intact, no tremors noted Psych: No acute distress, calm and cooperative during the exam Results & Data Results & Data Vital Signs (Past 12 Hours) Vital Signs Temp Pulse Resp BP Pulse Ox O2 Del Method 10/07/22 16:46 75 10/07/22 16:31 36.6 C 74 16 136/88 97 Room Air Laboratory Results Abnormal lab results 10/07/22 10/07/22 10/07/22 Range/Units 16:48 16:48 16:48 RBC 4.23 L (4.70-6.10) M/uL Hgb 12.2 L (14.0-18.0) g/dl Hct 37.0 L (42.0-52.0) % RDW Std Deviation 52.3 H (36.4-46.3) fL RDW Coeff of Yony 16.4 H (11.5-14.5) % Lymph # (Auto) 1.01 L (1.2-3.4) K/uL [place] # (Auto) 0.71 H (0.11-0.59) K/uL PT 12.4 H (9.0-12.0) Seconds BUN 38 H (6-23) mg/dl Creatinine 1.85 H (0.6-1.4) mg/dl BUN/Creatinine Ratio 20.5 H (10-20) Glucose 111 H (70-99(Fasting)) mg/dl Alkaline Phosphatase 144 H (34-104) U/L B-Natriuretic Peptide (0-100) pg/ml 10/07/22 Range/Units 16:48 RBC (4.70-6.10) M/uL Hgb (14.0-18.0) g/dl Hct (42.0-52.0) % RDW Std Deviation (36.4-46.3) fL RDW Coeff of Yony (11.5-14.5) % Lymph # (Auto) (1.2-3.4) K/uL [place] # (Auto) (0.11-0.59) K/uL PT (9.0-12.0) Seconds BUN (6-23) mg/dl Creatinine (0.6-1.4) mg/dl BUN/Creatinine Ratio (10-20) Glucose (70-99(Fasting)) mg/dl Alkaline Phosphatase (34-104) U/L B-Natriuretic Peptide 613 H (0-100) pg/ml Diagnostic Findings Chest X-Ray 10/07/22 18:04 SINGLE VIEW CHEST CLINICAL HISTORY: Dyspnea. FINDINGS: An AP, portable, upright chest radiograph is compared to study dated 09/09/2022. The examination is degraded by portable technique and apical lordotic positioning. A 3-lead cardiac AICD is unchanged in position. The patient is status post midline sternotomy. The heart is enlarged noting atherosclerotic calcification of the thoracic aorta. There is pulmonary vascular congestion. There is bibasilar scarring/atelectasis. No airspace consolidation or large pleural effusion is identified. No pneumothorax is seen. The skeletal structures are osteopenic. The bony thorax is grossly intact. IMPRESSION: 1. Cardiomegaly and AICD with evidence of congestive failure. 2. No airspace consolidation or large pleural effusion is identified ACT 112: Negative or not required by law. Electronically signed by: Maikel Davies M.D. 10/07/2022 6:26 PM ECG Additional Comments: AV dual-paced rhythm Abnormal ECG When compared with ECG of 09-SEP-2022 17:56, No significant change was found Code Status & VTE Plan Code Status Full code VTE Prophylaxis Plan VTE Prophylaxis will be ordered: Yes Supervising Physician Co-Signing Physician Notes Patient seen and examined, chart reviewed, case discussed with David Jordan PA-C and I agree with the assessment and plan as above except as otherwise noted above. 81 yo M with a PMHx of LUE swelling w/ compression from lipoma, HFrEF, nonischemic CAD, bioprosthetic AVR 2010, afib on eliquis, and pHTN who presented with increased LE edema and increased UE edema. At bedside legs are with bilateral pitting edema through the knees, uper extremities with increased edemaL>R. Lungs are clear. RLE is with markedly assymetric warmth/redness suggestive of celllulitis although no systemic signs of sepsis, afebrile, and WBC wnl. Agree with tx of AoC CHF with reduced EF 40% and conservative tx of possible RLE cellulitis with keflex. Agree w/ recommendations and management as above. PG Care Time/CCT Total # of Minutes Spent Total Time Spent with Patient: Total time spent is greater than 50% in coordination of care (as documented) at patient's floor/unit and/or counseling patient: C[place] [address] INT INP/OBS CARE 3/75MIN Patient Type Established Medical Decision Making High Complexity Diagnoses Fluid overload E87.70 Cellulitis of leg, right L03.115 Heart failure, diastolic, with acute decompensation I50.33 Subclavian vein obstruction I82.B12 Laterality: left PAF (paroxysmal atrial fibrillation) I48.0 Dyslipidemia, goal LDL below 70 E78.5 Nonobstructive atherosclerosis of coronary artery I25.10 Hypothyroidism E03.2 Hypothyroidism type: due to medication Hypertension I10 Hypertension type: essential hypertension (4) Subclavian vein obstruction Laterality: left Qualified Code(s): I82.B12 - Acute embolism and thrombosis of left subclavian vein (8) Hypothyroidism Hypothyroidism type: due to medication Qualified Code(s): E03.2 - Hypothyroidism due to medicaments and other exogenous substances (9) Hypertension Hypertension type: essential hypertension Qualified Code(s): I10 - Essential (primary) hypertension
[2022-10-07 19:08] LABS: Magnesium 2.1 mg/dl (1.7-2.4)
[2022-10-07 19:13] LABS: Phosphorus 3.6 mg/dl (2.5-4.9)
[2022-10-07] MEDS ORDERED: cephALEXin 500 MG CAP PO STA (19:19)
[2022-10-07 20:15] LABS: C Reactive Protein 0.78 mg/dl (0-0.5)
[2022-10-07] MEDS ORDERED: ACETAMINOPHEN 325 MG TAB PO PRN (22:13)
[2022-10-07] MEDS: cephALEXin 500 MG CAP PO SCH (23:41)
[2022-10-07] MEDS: ATORVASTATIN 40 MG TAB PO SCH (23:42)
[2022-10-07] MEDS: APIXABAN 5 MG TABLET PO SCH (23:42)
[2022-10-07] MEDS: buPROPion SR 150 MG TABCR PO SCH (23:42)
[2022-10-08] MEDS: LEVOTHYROXINE SODIUM 50 MCG TABLET PO SCH (05:33)
[2022-10-08 07:49] LABS: Hematocrit (blood only) 34.6 % (42.0-52.0); Hemoglobin 11.5 g/dl (14.0-18.0); Mean Corpuscular Hemoglobin 28.8 pg (25.0-34.0); Mean Corpuscular Hgb Conc 33.2 g/dL (32.0-36.0); Mean Corpuscular Volume 86.5 fL (80.0-100.0); Mean Platelet Volume 12.3 fL (9.4-12.4); Platelet Count 158 K/uL (130-400); RDW Coefficient of Variation 16.3 % (11.5-14.5); RDW Standard Deviation 51.8 fL (36.4-46.3); White Blood Count 6.36 K/ul (4.8-10.8)
[2022-10-08 08:06] LABS: BUN Creatinine Ratio 19.6 (10-20); Calcium 8.5 mg/dl (8.6-10.3); Creatinine Clr Calc Pharmacy 38.4 ml/min; Est GFR (African American) 39.7 ml/min; Est GFR (Non-African American) 34.3 ml/min; Potassium 4.2 mmol/L (3.5-5.1)
[2022-10-08] MEDS: cephALEXin 500 MG CAP PO SCH ×4 (08:24→20:29)
[2022-10-08] MEDS: FUROSEMIDE 40 MG/4 ML VIAL IV SCH ×2 (08:24→17:52)
[2022-10-08] MEDS: AMIODARONE 200 MG TAB PO SCH (08:25)
[2022-10-08] MEDS: lisinopril 10 MG TAB PO SCH (08:25)
[2022-10-08] MEDS: PANTOprazole 40 MG TAB PO SCH (08:25)
[2022-10-08] MEDS: METOPROLOL SUCC 50MG EXT REL TAB PO SCH (08:25)
[2022-10-08] MEDS: POTASSIUM CHLORIDE 10 MEQ TABCR PO SCH (08:25)
[2022-10-08] MEDS: buPROPion SR 150 MG TABCR PO SCH ×2 (08:25→20:48)
[2022-10-08] MEDS: FOLIC ACID 400 MCG TAB PO SCH (08:25)
[2022-10-08] MEDS: APIXABAN 5 MG TABLET PO SCH ×2 (08:25→20:30)
[2022-10-08] MEDS ORDERED: FUROSEMIDE 40 MG/4 ML VIAL IV SCH (09:00)
[2022-10-08] MEDS: SPIRONOLACTONE 25 MG TAB PO SCH (10:36)
--- NOTE | 2022-10-08 11:53 | Hospitalist Progress Note ---
Date of Service October 08, 2022 Assessment & Plan (1) Fluid overload: Plan: Acute on chronic systolic congestive heart failure. Known EF of 40%. Continue parenteral Lasix diuresis. Monitor intake and output. Serial chest x-ray. (2) Cellulitis of leg, right: Plan: Continue oral Keflex therapy. (3) Subclavian vein obstruction: Plan: Left upper extremity with associated edema. This is thought to be due to external compression due to a lipoma in the left shoulder region. Supportive care (4) PAF (paroxysmal atrial fibrillation): Plan: Stable. Currently in NSR . Continue Eliquis, metoprolol, and amiodarone (5) Dyslipidemia, goal LDL below 70: Plan: Stable. Continue statin (6) Nonobstructive atherosclerosis of coronary artery: Plan: Stable . Continue eliquis and statin (7) Hypothyroidism: Plan: Stable. Continue levothyroxine (8) Hypertension: Plan: Stable. Continue lisinopril Plan Anticipate eventual discharge to home within the next day or 2. Admission and Anticipated Discharge Date Admission Date: October 07, 2022 Subjective Alert and oriented. No acute distress. Left upper extremity edema is not new and thought to be due to lipoma compression of the left subclavian vein in the shoulder region. Intravenous Lasix dosage has been increased and spironolactone added. He is on room air. Limited cardiac echo reveals ejection fraction of 40%. He appears to have acute on chronic exacerbation of systolic CHF. There is evidence of right lower extremity cellulitis with probable underlying chronic stasis dermatitis. He is now on oral Keflex. Review of Systems Review of Systems: Constitutional-no fever or chills ENT-no blurred vision, no double vision, no epistaxis, no sore throat Respiratory-no cough, no wheezing. Shortness of breath with exertion Cardiac-no palpitations, no chest pain, no syncope GI-no nausea, vomiting, diarrhea, melena, hematochezia -no urinary retention, no urinary incontinence, no dysuria, no hematuria Musculoskeletal-chronic left upper extremity edema Skin-chronic venous stasis changes bilateral lower extremities below the knee along with evidence of cellulitis of right lower extremity below the knee Neuro-no isolated weakness, no paresthesia, no weakness Psych-no depression, no anxiety Physical Exam Physical Exam: General-alert and oriented x3, no fevers, no chills HEENT-head atraumatic and normocephalic, pupils equal and reactive to light, extraocular muscles intact Neck-no lymphadenopathy or thyromegaly, trachea midline Chest-bibasilar inspiratory rales. No wheezing. No rhonchi Cardiac-regular rate and rhythm, normal S1 and S2 Abdomen-normal bowel sounds, nontender, no hepatosplenomegaly Extremities-chronic venous stasis changes bilateral lower extremities below the knees with pitting edema. Right lower extremity cellulitic changes below the knee . Left upper extremity edema involving the entire left arm Neuro-cranial nerves II through XII intact, motor and sensory function within normal limits, strength symmetrical , no focal deficits Psych-normal affect, normal mood Results & Data Results & Data Vital Signs (Past 12 Hours) Vital Signs Temp Pulse Resp BP Pulse Ox O2 Del Method 10/08/22 10:56 36.4 C L 75 20 121/77 98 Room Air 10/08/22 09:41 Room Air 10/08/22 07:25 36.4 C L 77 20 115/78 96 Room Air 10/08/22 02:55 36.4 C L 76 18 103/68 96 Room Air 10/08/22 00:03 36.4 C L 76 18 111/79 98 Room Air Laboratory Results 10/08/22 07:05 10/08/22 07:05 PG Care Time/CCT Total # of Minutes Spent Total Time Spent with Patient: Total time spent is greater than 50% in coordination of care (as documented) at patient's floor/unit and/or counseling patient: Coding Level of Care Code 82485 SUB INP/OBS CARE 3/50MIN Diagnoses Fluid overload E87.70 Cellulitis of leg, right L03.115 Subclavian vein obstruction I82.B12 Laterality: left PAF (paroxysmal atrial fibrillation) I48.0 Dyslipidemia, goal LDL below 70 E78.5 Nonobstructive atherosclerosis of coronary artery I25.10 Hypothyroidism E03.2 Hypothyroidism type: due to medication Hypertension I10 Hypertension type: essential hypertension (3) Subclavian vein obstruction Laterality: left Qualified Code(s): I82.B12 - Acute embolism and thrombosis of left subclavian vein (7) Hypothyroidism Hypothyroidism type: due to medication Qualified Code(s): E03.2 - Hypothyroidism due to medicaments and other exogenous substances (8) Hypertension Hypertension type: essential hypertension Qualified Code(s): I10 - Essential (primary) hypertension
--- NOTE | 2022-10-08 12:10 | Electrocardiogram Report ---
Test Reason : Blood Pressure : / mmHG Vent. Rate : 075 BPM Atrial Rate : 075 BPM P-R Int : 000 ms QRS Dur : 184 ms QT Int : 502 ms P-R-T Axes : 000 -87 100 degrees QTc Int : 560 ms AV dual-paced rhythm Abnormal ECG When compared with ECG of 09-SEP-2022 17:56, No significant change was found Confirmed by Denny Lott ([id number]) on 10/08/2022 12:09:51 PM Referred By: Krystin Lawson Confirmed By:Denny Lott
[2022-10-08] MEDS: ATORVASTATIN 40 MG TAB PO SCH (20:29)
[2022-10-09] MEDS: LEVOTHYROXINE SODIUM 50 MCG TABLET PO SCH (05:45)
--- NOTE | 2022-10-09 07:32 | XRay Report ---
SINGLE VIEW CHEST CLINICAL HISTORY: Follow-up congestive heart failure. FINDINGS: An AP, portable, upright chest radiograph is compared to study dated 10/07/2022. The examina tion is mildly degraded by portable technique and apical lordotic positioning. A 3-lead cardiac AICD is unchanged in position. The patient is status post midline sternotomy. The heart is enlarged noting atherosclerotic calcification of the thoracic aorta. Pulmonary vascular congestion appears improved from previous. There is bibasilar scarring/atelectasis. No airspace consolidation or large pleural ef fusion is identified. No pneumothorax is seen. The skeletal structures are osteopenic. The bony thora x is grossly intact. IMPRESSION: 1. Cardiomegaly and AICD. Pulmonary vascular congestion has improved from previous. 2. No airspace consolidation or large pleural effusion is identified ACT 112: Negative or not required by law. Electronically signed by: Maikel Davies M.D. 10/09/2022 7:31 AM
[2022-10-09] MEDS: cephALEXin 500 MG CAP PO SCH ×2 (08:32→13:11)
[2022-10-09] MEDS: FOLIC ACID 400 MCG TAB PO SCH (08:32)
[2022-10-09] MEDS: APIXABAN 5 MG TABLET PO SCH (08:32)
[2022-10-09] MEDS: PANTOprazole 40 MG TAB PO SCH (08:33)
[2022-10-09] MEDS: POTASSIUM CHLORIDE 10 MEQ TABCR PO SCH (08:34)
[2022-10-09] MEDS: buPROPion SR 150 MG TABCR PO SCH (09:55)
[2022-10-09 10:07] LABS: BUN Creatinine Ratio 20.1 (10-20); Calcium 8.3 mg/dl (8.6-10.3); Creatinine Clr Calc Pharmacy 35.4 ml/min; Est GFR (Non-African American) 31.1 ml/min; Potassium 4.5 mmol/L (3.5-5.1)
[2022-10-09 10:13] LABS: Hematocrit (blood only) 35.1 % (42.0-52.0); Hemoglobin 11.6 g/dl (14.0-18.0); Mean Corpuscular Hemoglobin 28.9 pg (25.0-34.0); Mean Corpuscular Volume 87.3 fL (80.0-100.0); Platelet Count 154 K/uL (130-400); RDW Coefficient of Variation 16.3 % (11.5-14.5); RDW Standard Deviation 51.8 fL (36.4-46.3); Red Blood Count 4.02 M/uL (4.70-6.10)
[2022-10-09] MEDS: lisinopril 10 MG TAB PO SCH (10:17)
[2022-10-09] MEDS: SPIRONOLACTONE 25 MG TAB PO SCH (10:18)
[2022-10-09] MEDS: METOPROLOL SUCC 50MG EXT REL TAB PO SCH (10:18)
[2022-10-09] MEDS: AMIODARONE 200 MG TAB PO SCH (10:18)
[2022-10-09] MEDS: FUROSEMIDE 40 MG/4 ML VIAL IV SCH (10:19)
--- NOTE | 2022-10-09 12:32 | Discharge Summary ---
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 In the ED vitals were stable. Labs were significant for an alk phos of 144. Chest xray was read as " Prior to admission the patient was given 40 mg IV lasix. Per chart review, the patient was admitted to [facility] from 09/09-09/[address] of the chest was obtained and revealed a large lipoma which is compressing the left subclavian vein and left upper extremity veins. This, along with his CHF was thought to be contributing to his significant swelling. The hospital medicine team spoke with multiple specialists including [facility] Orthopedics, [facility] IR, and [facility] radiation oncology. 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 [facility] radiation oncology did not feel radiation therapy would provide significant benefit as the lipoma does not appear to be aggressive. It was determined that if the patient would need surgical intervention, this would need to be coordinated at a tertiary care facility as the procedure would likely require orthopedics and vascular surgery. Discussions were held with the patient and his family who were "lukewarm" with surgical management at that time. Outpatient CTA of the left upper extremity was obtained on 10/06 and was read as "1. Normal CT angiogram of the left upper extremity. The upper extremity arteries are widely patent. 2. Th ere is diffuse soft tissue edema and subcutaneous fluid throughout the left upper extremity. No soft tissue gas is seen. Clinical correlation will be required. 3. There is also edema of the left body wall. 4. A cardiac pacemaker is in place. 5. Large lipoma around the left scapula as detailed above.". MRI of the left shoulder WO con was also obtained and was read as "1. Extensive lipomas are seen in the rotator cuff. Otherwise no acute abnormalities, in particular no evidence rotator cuff tear. 2. Osteoarthritic changes are seen in the shoulder joint.". At the time of the exam the patient was sitting in bed in no acute distress. The patient is a poor historian and lives by himself without consistent help. He states that he has been having more swelling in his LE's, LUE, and increased SHAW and orthopnea since last admission. He denies fever, chills, chest pain, cough, abd pain, nausea, vomiting, diarrhea, dysuria, hematuria, melena, and recent trauma. While confirming his med rec the patient had confusion as to his lasix dosing. He currently has two different med lists with differing doses of PO lasix, one with 40 mg PO daily and one with 20 mg PO daily. Please refer to Dr. Ko's attestation for any changes to the treatment plan Principal Diagnosis Acute on chronic systolic CHF, right lower extremity cellulitis Discharge Exam General-alert and oriented x3, no fevers, no chills HEENT-head atraumatic and normocephalic, pupils equal and reactive to light, extraocular muscles intact Neck-no lymphadenopathy or thyromegaly, trachea midline Chest-bibasilar inspiratory rales have nearly resolved. No wheezing. No rhonchi Cardiac-regular rate and rhythm, normal S1 and S2 Abdomen-normal bowel sounds, nontender, no hepatosplenomegaly Extremities-chronic venous stasis changes bilateral lower extremities below the knees with pitting edema has improved. Right lower extremity cellulitic changes below the knee . Left upper extremity edema involving the entire left arm Neuro-cranial nerves II through XII intact, motor and sensory function within normal limits, strength symmetrical , no focal deficits Psych-normal affect, normal mood Discharge Data Allergies Allergy/AdvReac Type Severity Reaction Status Date / Time No Known Allergies Allergy Verified 09/22/22 15:56 Consultations 10/07/22 18:07 ED Decision to Admit Stat Hospital Course (1) Fluid overload: Acute on chronic systolic congestive heart failure. Known EF of 40%. Treated while hospitalized with parenteral Lasix diuresis. Discharge Lasix dosage will be increased to 40 mg twice a day instead of once a day. (2) Cellulitis of leg, right: Continue oral Keflex therapy at discharge. Improving (3) Subclavian vein obstruction: Left upper extremity with associated edema. This is thought to be due to external compression due to a lipoma in the left shoulder region. Supportive care . Outpatient management (4) PAF (paroxysmal atrial fibrillation): Stable. Currently in NSR . Continue Eliquis, metoprolol, and amiodarone (5) Dyslipidemia, goal LDL below 70: Stable. Continue statin (6) Nonobstructive atherosclerosis of coronary artery: Stable . Continue eliquis and statin (7) Hypothyroidism: Stable. Continue levothyroxine (8) Hypertension: Stable. Continue lisinopril Plan Home with home health services today, October 09. His main concern is having his medications prepared for him to take every day. Total Time Total Time Spent Total Time Spent (In Minutes): 40-minute Discharge Plan Discharge Items Patient Disposition: Home - Home Health Services Reason For Visit: INCREASED LE SWELLING, SOB Discharge Diagnosis: Acute on chronic systolic CHF, right lower extremity cellulitis Activity: Resume your previous activity Non-emergency contact: Primary Care Provider Call non-emergency contact if: you have any medication questions Follow-up/Referrals: Juan Manuel Early III, CRNP [Primary Care Provider] - Diet: Regular and Heart Healthy Addtl Attending Provider Instructions: Take Lasix 40 mg twice daily. Take Keflex for right lower extremity infection for 10 more days. Spironolactone once a day is a new medication Pending Studies at Discharge: No Stand-Alone Forms: [facility] [employer], Smoking Cessation Medications and DC Order Prescriptions: New spironolactone 25 mg Tablet 25 mg PO QAM Qty: 30 0RF cephalexin 500 mg Capsule 500 mg PO QID Qty: 40 0RF furosemide [Lasix] 40 mg tablet 40 mg PO BID Qty: 60 0RF Continued bupropion HCl 150 mg tablet sustained-release 12 hr 150 mg PO BID Qty: 180 2RF atorvastatin 80 mg tablet 80 mg PO HS Qty: 90 3RF metoprolol succinate 50 mg tablet extended release 24 hr 50 mg PO QAM Qty: 30 0RF omeprazole 20 mg capsule,delayed release(DR/EC) 20 mg PO DAILY Qty: 30 2RF levothyroxine [Synthroid] 50 mcg tablet 50 mcg PO DAILY Qty: 90 1RF Rx Instructions: Take first thing in the morning on an empty stomach with an 8 oz glass of water. Do not eat or take other medications for 30 minutes. apixaban 5 mg tablet 5 mg PO BID Qty: 180 3RF potassium chloride 10 mEq tablet extended release 10 meq PO DAILY Qty: 30 2RF amiodarone 200 mg tablet 200 mg PO DAILY Qty: 90 3RF fluocinonide 0.05 % Cream 1 applic TOPICAL BID PRN (Reason: .rash) folic acid 400 mcg tablet 800 mcg PO QAM lisinopril 20 mg tablet 10 mg PO DAILY Qty: 180 1RF Discontinued furosemide 20 mg tablet 40 mg PO DAILY Qty: 60 0RF Discharge Orders: Discharge Order- CHF (Routine); Ordered 10/09/22 Ordered By: Misha Walker Admission Data Admit Date/Time: 10/07/22 18:43 Attending Provider: Misha Walker Admit Provider: Ant Ko Primary Care Provider: Juan Manuel Early III Other Providers: Ant Ko Coding Level of Care Code 15458 INP/OBS DISCH >30 MIN Diagnoses Fluid overload E87.70 Cellulitis of leg, right L03.115 Subclavian vein obstruction I82.B12 Laterality: left PAF (paroxysmal atrial fibrillation) I48.0 Dyslipidemia, goal LDL below 70 E78.5 Nonobstructive atherosclerosis of coronary artery I25.10 Hypothyroidism E03.2 Hypothyroidism type: due to medication Hypertension I10 Hypertension type: essential hypertension
== END 2022-10-09 14:30 | disposition home or self-care (01) | DRG 291 ==
LOC: ED 16:19 → 2N 18:43 → SUATTDRO 18:43 → 2N 22:13

== ENCOUNTER 2023-08-14 15:28 | Inpatient (IN) ==
--- NOTE | 2023-08-14 16:32 | XRay Report ---
XR chest 1V not portable HISTORY: Shortness of breath. COMPARISON: Chest 04/02/2023. FINDINGS: Slightly rotated study. No pneumothorax. The cardiac silhouette remains enlarged. There are poststernotomy changes, an aortic valve prosthesis, left-sided pacemaker again noted. Small linear s carlike densities the left midlung zone remains unchanged. There are trace bilateral pleural effusion s. There is mild central pulmonary vascular congestion without overt edema. No new focal lung consoli dations to suggest a pneumonia. There are old, healed left posterior rib fractures. IMPRESSION: 1. Stable cardiomegaly and mild congestive change. 2. Trace bilateral pleural effusions again noted ACT 112: Negative or not required by law. Electronically signed by: Mendoza Uriostegui M.D. 08/14/2023 4:30 PM
[2023-08-14 16:48] LABS: Basophils # (auto) 0.04 K/uL (0.00-0.20); Basophils % (auto) 0.4 %; Eosinophils # (auto) 0.03 K/uL (0.00-0.50); Eosinophils % (auto) 0.3 %; Hemoglobin 11.4 g/dl (14.0-18.0); Immature Granulocytes # (auto) 0.04 K/uL (0.01-0.20); Immature Granulocytes % (auto) 0.4 %; Lymphocytes # (auto) 0.97 K/uL (1.20-3.40); Mean Corpuscular Hgb Conc 33.5 g/dL (32.0-36.0); Mean Corpuscular Volume 89.5 fL (80.0-100.0); Mean Platelet Volume 13.4 fL (9.4-12.4); Monocytes # (auto) 0.91 K/uL (0.11-0.59); Monocytes % (auto) 9.4 %; Neutrophils % (auto) 79.5 %; Platelet Count 106 K/uL (130-400); RDW Coefficient of Variation 18.4 % (11.5-14.5); RDW Standard Deviation 59.9 fL (36.4-46.3); White Blood Count 9.69 K/ul (4.8-10.8)
[2023-08-14 16:56] LABS: Alanine Aminotransferase 32 U/L (7-52); Albumin Globulin Ratio 0.9 (0.9-2); Albumin Level 3.4 gm/dl (3.4-5.0); Alkaline Phosphatase 175 U/L (34-104); Anion Gap 8 (3-11); Aspartate Aminotransferase 45 U/L (13-39); BUN Creatinine Ratio 21.4 (10-20); Bilirubin,Total 1.6 mg/dl (0.2-1.0); Blood Urea Nitrogen 44 mg/dl (6-23); Calcium 8.8 mg/dl (8.6-10.3); Carbon Dioxide 27 mmol/L (21-32); Chloride 105 mmol/L (98-107); Est GFR (African American) 33.3 ml/min; Est GFR (Non-African American) 28.7 ml/min; Globulin 3.6 gm/dl (2.5-4.0); Glucose 91 mg/dl (70-99(Fasting)); Potassium 4.2 mmol/L (3.5-5.1); Sodium 140 mmol/L (136-145)
[2023-08-14 17:12] LABS: Magnesium 2.1 mg/dl (1.7-2.4)
[2023-08-14 17:15] LABS: Troponin I High Sensitivity 41.8 pg/ml (0-20)
--- NOTE | 2023-08-14 18:12 | History & Physical Report ---
Date of Service August 14, 2023 Assessment & Plan (1) Fluid overload: Plan: Suspect combination of CKD and CHF. UA to assess for proteinuria. Lasix 40mg IV daily I&Os - maintain net negative 1.5-2L daily Daily weights TTE (2) Cellulitis of leg: Plan: Possible diagnosis Appearance of left leg similar to wound care clinic on August 10 and may just be venous statis changes however currently on antibiotics with Bactrim therefore will continue antibiotics Pictures taken in H&P for comparison throughout hospitalization Based on wound culture he is growing Enterobacter cloacae and with his CKD will switch antibiotics to ceftriaxone Blood culture to be taken prior to antibiotics (3) Venous ulcer of left leg: Plan: Continue wound care nurse (4) Stage II pressure ulcer of left buttock: Plan: Does not appear infected Consult wound care nurse (5) Scrotal swelling: Plan: Suspected from overall hypervolemic state (6) Hypothyroidism: Plan: TSH 2.684 (07/27/23), no need to repeat Continue levothyroxine (7) Hypertension: Plan: Continue metoprolol, lisinopril Lasix as above (8) CKD (chronic kidney disease): Plan: Likely Cr slightly above baseline due to recent Bactrim use Continue to monitor with AM labs with Lasix (9) Atrial fibrillation: Plan: Paroxysmal - currently in AV dual paced rhythm Continue Eliquis for anticoagulation Continue metoprolol for rate control Continue amiodarone for rhythm control (10) Acid reflux disease: Plan: Switch omeprazole to pantoprazole per hospital formulary (11) Acute on chronic HFrEF (heart failure with reduced ejection fraction): Plan VTE Prophyalxis - Eliquis Diet - Low Na, Heart healthy, fluids restricted Disposition - admit to PCU Admission and Anticipated Discharge Date Admission Date: August 14, 2023 History of Present Illness Chief Complaint: Increased leg edema Primary Care Provider: Juan Manuel Early III, LIZ Kermit Rogers is an 82 year old male who presents to the ER from wound care clinic due to generalized progressive swelling ongoing for last few months. Sent over from wound care clinic due to increased leg edema and non healing venous ulcers. He doesn't weight himself therefore unknown if weight increasing (although on review of weights in EHR weight increased from 92kg in 10/2022 to 106kg in 06/2023).He has noticed dyspnea on exertion but none at rest. No orthopnea, PND, chest pain, presyncope or palpitations. He has as known history of congestive heart failure s/p bioprosthetic AVR in 2010. He reports taking his Lasix daily and not missing dosing. No recent change in diet. He took all his medications this morning. Allergies Allergy/AdvReac Type Severity Reaction Status Date / Time No Known Allergies Allergy Verified 08/14/23 14:40 Home Medications Medication Instructions Recorded Confirmed Type atorvastatin 80 mg tablet 80 mg PO HS #90 tabs 11/05/22 08/14/23 Rx bupropion HCl 150 mg tablet,12 hr 150 mg PO BID #180 ea 11/05/22 08/14/23 Rx sustained-release lisinopril 20 mg tablet 10 mg (1/2 x 20 mg) PO DAILY #180 11/05/22 08/14/23 Rx tabs omeprazole 20 mg capsule,delayed 20 mg PO DAILY #90 caps 01/28/23 08/14/23 Rx release folic acid 800 mcg tablet 800 mcg PO QAM 03/22/23 08/14/23 History furosemide 40 mg tablet (Lasix) 40 mg PO QAM #90 tabs 04/01/23 08/14/23 Rx levothyroxine 50 mcg tablet 50 mcg PO DAILY #90 tabs 05/04/23 08/14/23 Rx (Synthroid) metoprolol succinate 50 mg capsule 50 mg PO DAILY 06/17/23 08/14/23 History sprinkle, ext. release 24 hr Left Upper Extremity Compression #1 ea 07/03/23 08/14/23 Rx Sleeve galantamine 8 mg 24 hr 8 mg PO QAM #30 caps 07/15/23 08/14/23 Rx capsule,extended release sulfamethoxazole 400 1 tab PO BID 10 days #20 tabs 08/13/23 08/14/23 Rx mg-trimethoprim 80 mg tablet (Bactrim) amiodarone 200 mg tablet 400 mg PO QAM 08/14/23 08/14/23 History apixaban 2.5 mg tablet (Eliquis) 2.5 mg PO AMHS 08/14/23 08/14/23 History Past Med/Surg History Medical History Scrotal swelling Hypothyroidism Ventricular tachycardia Ventricular tachyarrhythmia Subclavian vein obstruction PAF (paroxysmal atrial fibrillation) Dyslipidemia, goal LDL below 70 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 COVID-19 Ventricular tachycardia Thrombocytopenia New onset atrial fibrillation Encounter for pre-operative examination Left bundle branch block Acute pancreatitis Prostate cancer Prediabetes PVC (premature ventricular contraction) Hyperthyroidism Hypertension Hyperhomocystinemia Pure hypercholesterolemia History of snuff use Former smoker Difficulty reading due to visual problem Cervical radiculopathy 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, 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, clinical stage TIc Status post biopsies, biopsy stage TIIa [place] grade 3+3 Status post seed implant with cesium 131 as boost 12/08/2006 Status post completion of IMRT/IGRT 02/26/2007" Surgical History History of laparoscopic cholecystectomy (11/08/21) lap ish/ercp Nov 01 Chambers Status post aortic valve replacement with bioprosthetic valve H/O aortic valve repair H/O hernia repair Family History Mother Heart disease Brother Cancer Lung cancer Unknown Prostate cancer Father Prostate cancer Denies family history of Colon cancer Ovarian cancer Myocardial infarction Breast cancer Social History Smoking Status: Never smoker Tobacco Type: Cigarettes and Smokeless Tobacco (Dip or Chew) Age Started Using Tobacco: 8; Age Quit Using Tobacco: 75; packs per day: 2.5; Second Hand Exposure: No; Do You Dip or Chew Tobacco: No; Hx Alcohol Use: No Hx Substance Use: No Preferred Language: Syrian Communication Ability: Effective Visual Impairment: No Limitations Hearing Ability: Use of Hearing Aid Manager Of Hospital Required: No Beliefs That Will Affect Care: None marital status: / Current Living Situation: Alone Current Living Situation Comment: home alone with cat current occupational status: retired How many Children do You have: 2 Feels Safe at Home: Yes Safety Concerns: Feels Safe At This Time Childhood Exposure to Second-Hand Smoke: Yes Diet: regular Diet Comment: regular caffeine: Yes during the past year weight has: remained stable Dental Care, Regularly: No Physical Activity Frequency: Does not Exercise Seatbelt Use: never Sunscreen Use: No Do you think of yourself as: straight/heterosexual Assistive Devices: Cane Review of Systems 2 Review of Systems: All systems reviewed & are unremarkable except as noted in HPI & below Physical Exam 2 Constitutional: well developed; + not well nourished and no acute distress Eyes: + anicteric sclerae; normal pupil size ENMT: external ear and nose normal, oropharynx normal Respiratory: normal respiratory effort; no respiratory distress A uscultation: + diminished lung sounds (bibasal); no crackles and no wheezes Cardiovascular: Rate/Rhythm: regular rate and regular rhythm Heart Sounds: no murmur Extremities: normal capillary refill and + pedal edema (2+ to thighs b/l equal); no calf tenderness Left upper extremity lymphedema Gastrointestinal (Abdomen): normal bowel sounds, soft, nontender, no hepatosplenomegaly Musculoskeletal: no cyanosis or clubbing, extremities motor strength 5/5 Skin: Stage 2 dime sized ulcer on left buttocks without surrounding erythema Neurologic: moves all extremities and awake; not confused Psychiatric: A+Ox3, euthymic affect Genitourinary: no CVA tenderness Results & Data Results & Data Vital Signs (Past 12 Hours) Vital Signs Temp Pulse Pulse Resp BP BP Pulse Ox 08/14/23 18:00 75 08/14/23 17:30 75 17 133/91 96 08/14/23 15:54 36.6 C 75 16 132/84 96 O2 Del Method 08/14/23 18:00 08/14/23 17:30 Room Air 08/14/23 15:54 Room Air Laboratory Results Abnormal lab results 08/14/23 Range/Units 16:16 RBC 3.80 L (4.70-6.10) M/uL Hgb 11.4 L (14.0-18.0) g/dl Hct 34.0 L (42.0-52.0) % RDW Std Deviation 59.9 H (36.4-46.3) fL RDW Coeff of Yony 18.4 H (11.5-14.5) % Plt Count 106 L (130-400) K/uL MPV 13.4 H (9.4-12.4) fL Neut # (Auto) 7.70 H (1.40-6.50) K/uL Lymph # (Auto) 0.97 L (1.20-3.40) K/uL Frio # (Auto) 0.91 H (0.11-0.59) K/uL BUN 44 H (6-23) mg/dl Creatinine 2.06 H (0.6-1.4) mg/dl BUN/Creatinine Ratio 21.4 H (10-20) Total Bilirubin 1.6 H (0.2-1.0) mg/dl AST 45 H (13-39) U/L Alkaline Phosphatase 175 H (34-104) U/L Troponin I High Sens 41.8 H (0-20) pg/ml C-Reactive Protein 5.46 H (0-0.5) mg/dl B-Natriuretic Peptide 1450 H (0-100) pg/ml Diagnostic Findings XR chest 1V not portable HISTORY: Shortness of breath. COMPARISON: Chest 04/02/2023. FINDINGS: Slightly rotated study. No pneumothorax. The cardiac silhouette remains enlarged. There are poststernotomy changes, an aortic valve prosthesis, left-sided pacemaker again noted. Small linear scarlike densities the left midlung zone remains unchanged. There are trace bilateral pleural effusions. There is mild central pulmonary vascular congestion without overt edema. No new focal lung consolidations to suggest a pneumonia. There are old, healed left posterior rib fractures. IMPRESSION: 1. Stable cardiomegaly and mild congestive change. 2. Trace bilateral pleural effusions again noted Medications Administered ER Medications Given: None ECG Rate (beats per minute): 75 Findings: + paced rhythm (AV dual) Comparison ECG Date: from (April 02, 2023) Change: no significant change Code Status & VTE Plan Code Status Full VTE Prophylaxis Plan VTE Prophylaxis will be ordered: Yes PG Care Time/CCT Total # of Minutes Spent Total Time Spent with Patient: Total time spent is greater than 50% in coordination of care (as documented) at patient's floor/unit and/or counseling patient: Coding Level of Care Code 06819 INT INP/OBS CARE 3/75MIN Diagnoses Fluid overload E87.70 Hypervolemia type: unspecified Cellulitis of leg L03.119 Venous ulcer of left leg I83.029; L97.929 Stage II pressure ulcer of left buttock L89.322 Scrotal swelling N50.89 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.2 Hypothyroidism type: due to medication Essential hypertension I10 Hypertension type: essential hypertension 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 Chronic kidney disease stage: stage 3 (moderate) Chronic kidney disease stage 3 subtype: stage 3b (GFR 30-44) Longstanding persistent atrial fibrillation I48.11 Atrial fibrillation type: longstanding persistent Gastroesophageal reflux disease without esophagitis K21.9 Esophagitis presence: without esophagitis Acute on chronic HFrEF (heart failure with reduced ejection fraction) I50.23 (1) Fluid overload Hypervolemia type: unspecified Qualified Code(s): E87.70 - Fluid overload, unspecified (6) Hypothyroidism Hypothyroidism type: due to medication Qualified Code(s): E03.2 - Hypothyroidism due to medicaments and other exogenous substances (7) Hypertension Hypertension type: essential hypertension Qualified Code(s): I10 - Essential (primary) hypertension (8) CKD (chronic kidney disease) Chronic kidney disease stage: stage 3 (moderate) Chronic kidney disease stage 3 subtype: stage 3b (GFR 30-44) Qualified Code(s): N18.32 - Chronic kidney disease, stage 3b (9) Atrial fibrillation Atrial fibrillation type: longstanding persistent Qualified Code(s): I48.11 - Longstanding persistent atrial fibrillation (10) Acid reflux disease Esophagitis presence: without esophagitis Qualified Code(s): K21.9 - Gastro- esophageal reflux disease without esophagitis
--- NOTE | 2023-08-14 18:22 | Emergency Department Note ---
History of Present Illness General Chief complaint: Swelling/Edema to Extremity Stated complaint: FILLED WITH FLUID Time Seen by Provider: 08/14/23 16:16 History of Present Illness Provider complaint: Fluid overload Onset (ago): week(s) 1 82-year-old male presents to the emergency department for fluid overload. reports that the patient has a history of lymphedema but over the last week his fluid has been increasing in his legs and in his arms. She states swelling is now into his thighs. She states the patient has a history of lymphedema and he was referred here by the wound care clinic. Home Medications Medication Instructions Recorded Confirmed Type atorvastatin 80 mg tablet 80 mg PO HS #90 tabs 11/05/22 08/14/23 Rx bupropion HCl 150 mg tablet,12 hr 150 mg PO BID #180 ea 11/05/22 08/14/23 Rx sustained-release lisinopril 20 mg tablet 10 mg (1/2 x 20 mg) PO DAILY #180 11/05/22 08/14/23 Rx tabs omeprazole 20 mg capsule,delayed 20 mg PO DAILY #90 caps 01/28/23 08/14/23 Rx release apixaban 5 mg tablet 2.5 mg PO BID 02/26/23 08/14/23 History amiodarone 200 mg tablet 200 mg PO QAM 03/22/23 08/14/23 History folic acid 800 mcg tablet 800 mcg PO QAM 03/22/23 08/14/23 History furosemide 40 mg tablet (Lasix) 40 mg PO QAM #90 tabs 04/01/23 08/14/23 Rx levothyroxine 50 mcg tablet 50 mcg PO DAILY #90 tabs 05/04/23 08/14/23 Rx (Synthroid) metoprolol succinate 50 mg capsule 50 mg PO DAILY 06/17/23 08/14/23 History sprinkle, ext. release 24 hr Left Upper Extremity Compression #1 ea 07/03/23 08/14/23 Rx Sleeve galantamine 8 mg 24 hr 8 mg PO QAM #30 caps 07/15/23 08/14/23 Rx capsule,extended release sulfamethoxazole 400 1 tab PO BID 10 days #20 tabs 08/13/23 08/14/23 Rx mg-trimethoprim 80 mg tablet (Bactrim) Allergies Allergy/AdvReac Type Severity Reaction Status Date / Time No Known Allergies Allergy Verified 08/14/23 14:40 Past Med/Surg History Medical History Scrotal swelling Hypothyroidism Ventricular tachycardia Ventricular tachyarrhythmia Subclavian vein obstruction PAF (paroxysmal atrial fibrillation) Dyslipidemia, goal LDL below 70 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 COVID-19 Ventricular tachycardia Thrombocytopenia New onset atrial fibrillation Encounter for pre-operative examination Left bundle branch block Acute pancreatitis Prostate cancer Prediabetes PVC (premature ventricular contraction) Hyperthyroidism Hypertension Hyperhomocystinemia Pure hypercholesterolemia History of snuff use Former smoker Difficulty reading due to visual problem Cervical radiculopathy 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, 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, clinical stage TIc Status post biopsies, biopsy stage TIIa Divine grade 3+3 Status post seed implant with cesium 131 as boost 12/08/2006 Status post completion of IMRT/IGRT 02/26/2007" Surgical History History of laparoscopic cholecystectomy (11/08/21) lap ish/ercp Nov 01 Chambers Status post aortic valve replacement with bioprosthetic valve H/O aortic valve repair H/O hernia repair Family History Mother Heart disease Brother Cancer Lung cancer Unknown Prostate cancer Father Prostate cancer Denies family history of Colon cancer Ovarian cancer Myocardial infarction Breast cancer Social History Smoking Status: Never smoker Tobacco Type: Cigarettes and Smokeless Tobacco (Dip or Chew) Age Started Using Tobacco: 8; Age Quit Using Tobacco: 75; packs per day: 2.5; Second Hand Exposure: No; Do You Dip or Chew Tobacco: No; Hx Alcohol Use: Yes Alcohol type: beer Hx Substance Use: No Preferred Language: Macedonian Communication Ability: Effective Visual Impairment: No Limitations Hearing Ability: Use of Hearing Aid Associate Professor Of Management Required: No Beliefs That Will Affect Care: None marital status: / Current Living Situation: Alone Current Living Situation Comment: home alone with cat current occupational status: retired How many Children do You have: 2 Feels Safe at Home: Yes Childhood Exposure to Second-Hand Smoke: Yes Diet: regular Diet Comment: regular caffeine: Yes during the past year weight has: remained stable Dental Care, Regularly: No Physical Activity Frequency: Does not Exercise Seatbelt Use: never Sunscreen Use: No Do you think of yourself as: straight/heterosexual Assistive Devices: Cane Physical Exam Vital Signs Vital Signs - 24 hr 08/14/23 15:54 08/14/23 17:30 08/14/23 18:00 Temperature 36.6 C Temperature Source Temporal Artery Scan Pulse Rate 75 75 Pulse Rate [Apical] 75 Pulse Rhythm [Apical] Regular Pulse Strength [Apical] Normal Respiratory Rate 16 17 Respiratory Effort / Characteristics Non-Labored Spontaneous Non-Labored Spontaneous Respiratory Depth Normal Normal Respiratory Pattern Regular Blood Pressure 132/84 Blood Pressure [Right Arm] 133/91 Blood Pressure Mean 100 Blood Pressure Mean [Right Arm] 105 Pulse Oximetry 96 96 Oxygen Delivery Method Room Air Room Air Sepsis Recent Fever Within 48 Hours No Sepsis New/Unexplained Change in Mental Status No Sepsis Action Taken by Nursing No Action Required Physical Exam HENT: Exam performed. - Head: Normocephalic and atraumatic. EYES: Conjunctivae and EOM are normal. Pupils are equal, round, and reactive to light. Right eye exhibits no discharge. Left eye exhibits no discharge. No scleral icterus. NECK: Normal range of motion. Neck supple. No JVD present. No rigidity. No tracheal deviation and normal range of motion present. CV: Normal rate, regular rhythm, normal heart sounds and intact distal pulses. Palpable radial pulses bue. PULM/CHEST: Effort normal and breath sounds normal. No respiratory distress. No stridor. He has no wheezes. He has no rales. - Chest Wall: He exhibits no tenderness. ABD: The abdomen is soft. Mild distension. There is no tenderness. There is no rebound, no guarding. MUSC/SKEL: Normal range of motion. 4+ pitting edema of the bilateral lower extremities. Edema of the left upper extremity which is always present but worse according to the at bedside. NEURO: Motor and sensation grossly intact. Course Course 161: The patient was evaluated in room C7. A complete history and physical exam was performed Cardiac monitoring: An order was placed for continuous cardiac monitoring. The monitor shows a rate of 70 with paced rhythm interpreted by me 1820: Vital signs stable. Labs are significant for creatinine of 2.06 at baseline. High-sensitivity troponin 41.8. BNP is 1450 which is higher than his previous BMPs. Chest x-ray shows cardiomegaly with fluid overload. Discussed the case with [facility] hospitalist Dr. Altamirano and he states he will evaluate the patient for diuresis options. Medical Decision Making Laboratory Data Attestation: I reviewed the patient's lab results. 08/14/23 16:16 08/14/23 16:16 Lab Results 08/14/23 Range/Units 16:16 WBC 9.69 (4.8-10.8) K/ul RBC 3.80 L (4.70-6.10) M/uL Hgb 11.4 L (14.0-18.0) g/dl Hct 34.0 L (42.0-52.0) % MCV 89.5 (80.0-100.0) fL MCH 30.0 (25.0-34.0) pg MCHC 33.5 (32.0-36.0) g/dL RDW Std Deviation 59.9 H (36.4-46.3) fL RDW Coeff of Yony 18.4 H (11.5-14.5) % Plt Count 106 L (130-400) K/uL MPV 13.4 H (9.4-12.4) fL Immature Gran % (Auto) 0.4 % Neut % (Auto) 79.5 % Lymph % (Auto) 10.0 % Rapides % (Auto) 9.4 % Eos % (Auto) 0.3 % Baso % (Auto) 0.4 % Neut # (Auto) 7.70 H (1.40-6.50) K/uL Lymph # (Auto) 0.97 L (1.20-3.40) K/uL Rapides # (Auto) 0.91 H (0.11-0.59) K/uL Eos # (Auto) 0.03 (0.00-0.50) K/uL Baso # (Auto) 0.04 (0.00-0.20) K/uL Immature Gran # (Auto) 0.04 (0.01-0.20) K/uL Sodium 140 (136-145) mmol/L Potassium 4.2 (3.5-5.1) mmol/L Chloride 105 (98-107) mmol/L Carbon Dioxide 27 (21-32) mmol/L Anion Gap 8 (3-11) BUN 44 H (6-23) mg/dl Creatinine 2.06 H (0.6-1.4) mg/dl Est Cr Clr Drug Dosing Not Reportable Est GFR ( Amer) 33.3 ml/min Est GFR (Non-Af Amer) 28.7 ml/min BUN/Creatinine Ratio 21.4 H (10-20) Glucose 91 (70-99(Fasting)) mg/dl Calcium 8.8 (8.6-10.3) mg/dl Magnesium 2.1 (1.7-2.4) mg/dl Total Bilirubin 1.6 H (0.2-1.0) mg/dl AST 45 H (13-39) U/L ALT 32 (7-52) U/L Alkaline Phosphatase 175 H (34-104) U/L Troponin I High Sens 41.8 H (0-20) pg/ml B-Natriuretic Peptide 1450 H (0-100) pg/ml Total Protein 7.0 (6.0-8.3) gm/dl Albumin 3.4 (3.4-5.0) gm/dl Globulin 3.6 (2.5-4.0) gm/dl Albumin/Globulin Ratio 0.9 (0.9-2) Imaging Data Attestation: I personally reviewed and interpreted this imaging study as follows: My Impression: Chest x-ray: Cardiomegaly with mild cephalization Radiologist's Impression: Chest X-Ray 08/14/23 16:01 XR chest 1V not portable HISTORY: Shortness of breath. COMPARISON: Chest 04/02/2023. FINDINGS: Slightly rotated study. No pneumothorax. The cardiac silhouette remains enlarged. There are poststernotomy changes, an aortic valve prosthesis, left-sided pacemaker again noted. Small linear scarlike densities the left midlung zone remains unchanged. There are trace bilateral pleural effusions. There is mild central pulmonary vascular congestion without overt edema. No new focal lung consolidations to suggest a pneumonia. There are old, healed left posterior rib fractures. IMPRESSION: 1. Stable cardiomegaly and mild congestive change. 2. Trace bilateral pleural effusions again noted ACT 112: Negative or not required by law. Electronically signed by: Mendoza Uriostegui M.D. 08/14/2023 4:30 PM ECG Data Attestation: I personally reviewed and interpreted this ECG as follows: Additional Comments: Paced rhythm with a rate of 75. [place] 126 QRS 194 QTc 567. No ectopy. [facility] Narrative 1616: The patient was evaluated in room C7. A complete history and physical exam was performed Cardiac monitoring: An order was placed for continuous cardiac monitoring. The monitor shows a rate of 70 with paced rhythm interpreted by me 1820: Vital signs stable. Labs are significant for creatinine of 2.06 at baseline. High-sensitivity troponin 41.8. BNP is 1450 which is higher than his previous BMPs. Chest x-ray shows cardiomegaly with fluid overload. Discussed the case with [facility] hospitalist Dr. Altamirano and he states he will evaluate the patient for diuresis options. Impression & Plan Fluid overload Discharge Plan Visit Data Chief Complaint: Swelling/Edema to Extremity Stated Complaint: FILLED WITH FLUID ED Provider: Roni Braswell Discharge Problem: Fluid overload Patient Disposition: Admitted As Inpatient Forms Stand Alone Forms: My [facility] Prescriptions Prescriptions: No Action apixaban 5 mg tablet 2.5 mg PO BID omeprazole 20 mg capsule,delayed release(DR/EC) 20 mg PO DAILY Qty: 90 3RF furosemide [Lasix] 40 mg tablet 40 mg PO QAM Qty: 90 1RF levothyroxine [Synthroid] 50 mcg tablet 50 mcg PO DAILY Qty: 90 1RF Rx Instructions: Take first thing in the morning on an empty stomach with an 8 oz glass of water. Do not eat or take other medications for 30 minutes. (DME) Left Upper Extremity Compression Sleeve See Rx Instructions .Route .MEDSUPPLY Qty: 1 0RF Rx Instructions: As directed galantamine 8 mg capsule,ext rel. pellets 24 hr 8 mg PO QAM Qty: 30 2RF Rx Instructions: administer with breakfast sulfamethoxazole-trimethoprim [Bactrim] 400-80 mg tablet 1 tab PO BID 10 Days Qty: 20 0RF atorvastatin 80 mg tablet 80 mg PO HS Qty: 90 3RF bupropion HCl 150 mg tablet sustained-release 12 hr 150 mg PO BID Qty: 180 3RF lisinopril 20 mg tablet 10 mg PO DAILY Qty: 180 1RF metoprolol succinate 50 mg capsule,sprinkle,ER 24hr 50 mg PO DAILY amiodarone 200 mg tablet 200 mg PO QAM folic acid 800 mcg tablet 800 mcg PO QAM Referrals Referrals: Juan Manuel Early III, CRNP [Primary Care Provider] - Discharge Problem: Fluid overload Qualifiers: Hypervolemia type: unspecified Qualified Code(s): E87.70 - Fluid overload, unspecified
[2023-08-14] MEDS: FUROSEMIDE 40 MG/4 ML VIAL IV STA (18:57)
[2023-08-14 19:05] LABS: C Reactive Protein 5.46 mg/dl (0-0.5)
[2023-08-14] MEDS: cefTRIAXone SODIUM 2,000 MG/50 ML BAG IV STA (20:57)
[2023-08-14] MEDS: ATORVASTATIN 40 MG TAB PO SCH (23:20)
[2023-08-14] MEDS: buPROPion SR 150 MG TABCR PO SCH (23:31)
[2023-08-14] MEDS: Patient's HEIGHT &/or WEIGHT Needed STA (23:42)
[2023-08-14] MEDS: APIXABAN 2.5 MG TAB PO SCH (23:42)
[2023-08-15] MEDS: LEVOTHYROXINE SODIUM 50 MCG TABLET PO SCH (06:08)
[2023-08-15] MEDS ORDERED: ACETAMINOPHEN 325 MG TAB PO PRN (06:50)
[2023-08-15 08:14] LABS: Appearance Urine Turbid (Clear); Bacteria Urine Automated 4+ (None Seen); Bilirubin Urine Negative (Negative); Blood Urine 3+ (Negative); Color Urine Dark Yellow; Epithelial Cell Urine Auto 0-2 /hpf (0-2); Glucose Urine UA Negative (Negative); Ketones Urine Negative (Negative); Leukocyte Esterase Urine 3+ (Negative); Nitrite Urine Negative (Negative); Protein Urine 3+ (Negative); RBC Urine Automated >20 /hpf (0-2); Specific Gravity Urine 1.015 (1.000-1.030); Urobilinogen Urine Negative (Negative); WBC Urine Automated 21-50 /hpf (0-5); pH Urine >= 9.0 (4.5-7.5)
[2023-08-15 08:37] LABS: Triple Phosphate Crystal Urine Present (None Prsent)
[2023-08-15] MEDS: lisinopril 10 MG TAB PO SCH (09:06)
[2023-08-15] MEDS: METOPROLOL SUCC 50MG EXT REL TAB PO SCH (09:06)
[2023-08-15] MEDS: AMIODARONE 200 MG TAB PO SCH (09:06)
[2023-08-15] MEDS: GALANTAMINE HYDROBROMIDE 8 MG CAPER PO SCH (09:06)
[2023-08-15] MEDS: FOLIC ACID 400 MCG TAB PO SCH (09:06)
[2023-08-15] MEDS: PANTOprazole 40 MG TAB PO SCH (09:06)
[2023-08-15] MEDS: FUROSEMIDE 40 MG/4 ML VIAL IV SCH (09:06)
[2023-08-15 09:48] LABS: Basophils # (auto) 0.04 K/uL (0.00-0.20); Basophils % (auto) 0.5 %; Eosinophils # (auto) 0.22 K/uL (0.00-0.50); Eosinophils % (auto) 2.7 %; Hematocrit (blood only) 33.9 % (42.0-52.0); Hemoglobin 11.2 g/dl (14.0-18.0); Immature Granulocytes # (auto) 0.04 K/uL (0.01-0.20); Immature Granulocytes % (auto) 0.5 %; Lymphocytes # (auto) 0.76 K/uL (1.20-3.40); Lymphocytes % (auto) 9.2 %; Mean Corpuscular Hemoglobin 30.3 pg (25.0-34.0); Mean Corpuscular Volume 91.6 fL (80.0-100.0); Monocytes # (auto) 0.68 K/uL (0.11-0.59); Monocytes % (auto) 8.3 %; Neutrophils # (auto) 6.49 K/uL (1.40-6.50); Neutrophils % (auto) 78.8 %; Platelet Count 121 K/uL (130-400); RDW Coefficient of Variation 18.4 % (11.5-14.5); White Blood Count 8.23 K/ul (4.8-10.8)
[2023-08-15 10:05] LABS: BUN Creatinine Ratio 19.9 (10-20); Calcium 8.2 mg/dl (8.6-10.3); Creatinine Clr Calc Pharmacy 31.9 ml/min; Est GFR (African American) 32.3 ml/min; Est GFR (Non-African American) 27.9 ml/min; Potassium 3.9 mmol/L (3.5-5.1)
--- NOTE | 2023-08-15 12:53 | XCELERA ---
[id number] [id number]
--- NOTE | 2023-08-15 20:41 | Hospitalist Progress Note ---
Date of Service August 15, 2023 Assessment & Plan (1) Fluid overload: Plan: Suspect combination of CKD and CHF. UA to assess for proteinuria. Lasix 40mg IV daily I&Os - maintain net negative 1.5-2L daily Daily weights TTE Patient is tolerating above treatment plan. Vitals are stable. reviewed lab work. (2) Cellulitis of leg: Plan: Possible diagnosis Appearance of left leg similar to wound care clinic on August 10 and may just be venous statis changes however currently on antibiotics with Bactrim therefore will continue antibiotics Pictures taken in H&P for comparison throughout hospitalization Based on wound culture he is growing Enterobacter cloacae and with his CKD will switch antibiotics to ceftriaxone Blood culture to be taken prior to antibiotics (3) Venous ulcer of left leg: Plan: Continue wound care nurse (4) Stage II pressure ulcer of left buttock: Plan: Does not appear infected Consult wound care nurse (5) Scrotal swelling: Plan: Suspected from overall hypervolemic state (6) Hypothyroidism: Plan: TSH 2.684 (07/27/23), no need to repeat Continue levothyroxine (7) Hypertension: Plan: Continue metoprolol, lisinopril Lasix as above (8) CKD (chronic kidney disease): Plan: Likely Cr slightly above baseline due to recent Bactrim use Continue to monitor with AM labs with Lasix (9) Atrial fibrillation: Plan: Paroxysmal - currently in AV dual paced rhythm Continue Eliquis for anticoagulation Continue metoprolol for rate control Continue amiodarone for rhythm control (10) Acid reflux disease: Plan: Switch omeprazole to pantoprazole per hospital formulary (11) Acute on chronic HFrEF (heart failure with reduced ejection fraction): Plan VTE Prophyalxis - Eliquis Diet - Low Na, Heart healthy, fluids restricted Disposition - admit to PCU Admission and Anticipated Discharge Date Admission Date: August 14, 2023 Subjective Patient reports no new symptoms Review of Systems Review of Systems: All systems reviewed & are unremarkable except as noted in HPI & below Physical Exam Constitutional: well developed; + not well nourished and no acute distress Eyes: + anicteric sclerae; normal pupil size ENMT: external ear and nose normal, oropharynx normal Respiratory: normal respiratory effort; no respiratory distress Auscultation: + diminished lung sounds (bibasal); no crackles and no wheezes Cardiovascular: Rate/Rhythm: regular rate and regular rhythm Heart Sounds: no murmur Extremities: normal capillary refill and + pedal edema (2+ to thighs b/l equal); no calf tenderness Left upper extremity lymphedema Gastrointestinal (Abdomen): normal bowel sounds, soft, nontender, no hepatosplenomegaly Musculoskeletal: no cyanosis or clubbing, extremities motor strength 5/5 Skin: Stage 2 dime sized ulcer on left buttocks without surrounding erythema Neurologic: moves all extremities and awake; not confused Psychiatric: A+Ox3, euthymic affect Genitourinary: no CVA tenderness Results & Data Results & Data Vital Signs (Past 12 Hours) Vital Signs Temp Pulse Resp BP Pulse Ox O2 Del Method 08/15/23 19:35 36.3 C L 76 22 125/83 96 Room Air 08/15/23 15:10 36.5 C 74 19 120/77 96 Room Air 08/15/23 11:46 36.4 C L 76 19 122/76 97 Room Air PG Care Time/CCT Total # of Minutes Spent Total Time Spent with Patient: Total time spent is greater than 50% in coordination of care (as documented) at patient's floor/unit and/or counseling patient: Coding Level of Care Code 55743 SUB INP/OBS CARE 2/35MIN Diagnoses Fluid overload E87.70 Hypervolemia type: unspecified Cellulitis of leg L03.119 Venous ulcer of left leg I83.029; L97.929 Stage II pressure ulcer of left buttock L89.322 Scrotal swelling N50.89 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.2 Hypothyroidism type: due to medication Essential hypertension I10 Hypertension type: essential hypertension 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 Chronic kidney disease stage: stage 3 (moderate) Chronic kidney disease stage 3 subtype: stage 3b (GFR 30-44) Longstanding persistent atrial fibrillation I48.11 Atrial fibrillation type: longstanding persistent Gastroesophageal reflux disease without esophagitis K21.9 Esophagitis presence: without esophagitis Acute on chronic HFrEF (heart failure with reduced ejection fraction) I50.23 Time Spent (min) 35 (1) Fluid overload Hypervolemia type: unspecified Qualified Code(s): E87.70 - Fluid overload, unspecified (6) Hypothyroidism Hypothyroidism type: due to medication Qualified Code(s): E03.2 - Hypothyroidism due to medicaments and other exogenous substances (7) Hypertension Hypertension type: essential hypertension Qualified Code(s): I10 - Essential (primary) hypertension (8) CKD (chronic kidney disease) Chronic kidney disease stage: stage 3 (moderate) Chronic kidney disease stage 3 subtype: stage 3b (GFR 30-44) Qualified Code(s): N18.32 - Chronic kidney disease, stage 3b (9) Atrial fibrillation Atrial fibrillation type: longstanding persistent Qualified Code(s): I48.11 - Longstanding persistent atrial fibrillation (10) Acid reflux disease Esophagitis presence: without esophagitis Qualified Code(s): K21.9 - Gastro- esophageal reflux disease without esophagitis
[2023-08-15] MEDS: cefTRIAXone SODIUM 2,000 MG/50 ML BAG IV SCH (20:45)
--- NOTE | 2023-08-16 22:00 | Electrocardiogram Report ---
Test Reason : Blood Pressure : / mmHG Vent. Rate : 075 BPM Atrial Rate : 075 BPM P-R Int : 126 ms QRS Dur : 194 ms QT Int : 508 ms P-R-T Axes : 000 -87 107 degrees QTc Int : 567 ms AV dual-paced rhythm Biventricular pacemaker detected Abnormal ECG When compared with ECG of 02-APR-2023 12:53, No significant change was found Confirmed by Denny Lott ([id number]) on 08/16/2023 10:00:24 PM Referred By: Steffany Villareal Confirmed By:Denny Lott
--- NOTE | 2023-08-16 22:20 | Hospitalist Progress Note ---
Date of Service August 16, 2023 Assessment & Plan (1) Fluid overload: Plan: Suspect combination of CKD and CHF. UA to assess for proteinuria. Lasix 40mg IV daily I&Os - maintain net negative 1.5-2L daily Daily weights TTE Patient is tolerating above treatment plan. Vitals are stable. reviewed lab work. Continue diuretics as above. (2) Cellulitis of leg: Plan: Possible diagnosis Appearance of left leg similar to wound care clinic on August 10 and may just be venous statis changes however currently on antibiotics with Bactrim therefore will continue antibiotics Pictures taken in H&P for comparison throughout hospitalization Based on wound culture he is growing Enterobacter cloacae and with his CKD will switch antibiotics to ceftriaxone Blood culture to be taken prior to antibiotics (3) Venous ulcer of left leg: Plan: Continue wound care nurse (4) Stage II pressure ulcer of left buttock: Plan: Does not appear infected Consult wound care nurse (5) Scrotal swelling: Plan: Suspected from overall hypervolemic state (6) Hypothyroidism: Plan: TSH 2.684 (07/27/23), no need to repeat Continue levothyroxine (7) Hypertension: Plan: Continue metoprolol, lisinopril Lasix as above (8) CKD (chronic kidney disease): Plan: Likely Cr slightly above baseline due to recent Bactrim use Continue to monitor with AM labs with Lasix (9) Atrial fibrillation: Plan: Paroxysmal - currently in AV dual paced rhythm Continue Eliquis for anticoagulation Continue metoprolol for rate control Continue amiodarone for rhythm control (10) Acid reflux disease: Plan: Switch omeprazole to pantoprazole per hospital formulary (11) Acute on chronic HFrEF (heart failure with reduced ejection fraction): Plan VTE Prophyalxis - Eliquis Diet - Low Na, Heart healthy, fluids restricted Disposition - admit to PCU Admission and Anticipated Discharge Date Admission Date: August 14, 2023 Subjective Patient reports tolerating the diuretics well. Review of Systems Review of Systems: All systems reviewed & are unremarkable except as noted in HPI & below Physical Exam Constitutional: well developed; + not well nourished and no acute distress Eyes: + anicteric sclerae; normal pupil size ENMT: external ear and nose normal, oropharynx normal Respiratory: normal respiratory effort; no respiratory distress Auscultation: + diminished lung sounds (bibasal); no crackles and no wheezes Cardiovascular: Rate/Rhythm: regular rate and regular rhythm Heart Sounds: no murmur Extremities: normal capillary refill and + pedal edema (2+ to thighs b/l equal); no calf tenderness Gastrointestinal (Abdomen): normal bowel sounds, soft, nontender, no hepatosplenomegaly Musculoskeletal: no cyanosis or clubbing, extremities motor strength 5/5 Neurologic: moves all extremities and awake; not confused Psychiatric: A+Ox3, euthymic affect Genitourinary: no CVA tenderness Results & Data Results & Data Vital Signs (Past 12 Hours) Vital Signs Temp Pulse Resp BP Pulse Ox O2 Del Method 08/16/23 19:01 36.6 C 99 H 20 133/89 98 Room Air 08/16/23 15:00 36.4 C L 75 19 139/92 94 Room Air 08/16/23 11:32 36.6 C 74 19 131/87 98 Room Air PG Care Time/CCT Total # of Minutes Spent Total Time Spent with Patient: Total time spent is greater than 50% in coordination of care (as documented) at patient's floor/unit and/or counseling patient: Coding Level of Care Code 64145 SUB INP/OBS CARE 2/35MIN Diagnoses Fluid overload E87.70 Hypervolemia type: unspecified Cellulitis of leg L03.119 Venous ulcer of left leg I83.029; L97.929 Stage II pressure ulcer of left buttock L89.322 Scrotal swelling N50.89 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.2 Hypothyroidism type: due to medication Essential hypertension I10 Hypertension type: essential hypertension 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 Chronic kidney disease stage: stage 3 (moderate) Chronic kidney disease stage 3 subtype: stage 3b (GFR 30-44) Longstanding persistent atrial fibrillation I48.11 Atrial fibrillation type: longstanding persistent Gastroesophageal reflux disease without esophagitis K21.9 Esophagitis presence: without esophagitis Acute on chronic HFrEF (heart failure with reduced ejection fraction) I50.23 (1) Fluid overload Hypervolemia type: unspecified Qualified Code(s): E87.70 - Fluid overload, unspecified (6) Hypothyroidism Hypothyroidism type: due to medication Qualified Code(s): E03.2 - Hypothyroidism due to medicaments and other exogenous substances (7) Hypertension Hypertension type: essential hypertension Qualified Code(s): I10 - Essential (primary) hypertension (8) CKD (chronic kidney disease) Chronic kidney disease stage: stage 3 (moderate) Chronic kidney disease stage 3 subtype: stage 3b (GFR 30-44) Qualified Code(s): N18.32 - Chronic kidney disease, stage 3b (9) Atrial fibrillation Atrial fibrillation type: longstanding persistent Qualified Code(s): I48.11 - Longstanding persistent atrial fibrillation (10) Acid reflux disease Esophagitis presence: without esophagitis Qualified Code(s): K21.9 - Gastro- esophageal reflux disease without esophagitis
[2023-08-17 06:45] LABS: Hematocrit (blood only) 34.2 % (42.0-52.0); Hemoglobin 11.4 g/dl (14.0-18.0); Mean Corpuscular Hemoglobin 29.8 pg (25.0-34.0); Mean Corpuscular Hgb Conc 33.3 g/dL (32.0-36.0); Mean Corpuscular Volume 89.3 fL (80.0-100.0); Mean Platelet Volume 12.9 fL (9.4-12.4); Platelet Count 138 K/uL (130-400); RDW Coefficient of Variation 18.2 % (11.5-14.5); RDW Standard Deviation 59.6 fL (36.4-46.3); Red Blood Count 3.83 M/uL (4.70-6.10); White Blood Count 6.48 K/ul (4.8-10.8)
[2023-08-17 06:59] LABS: Calcium 7.6 mg/dl (8.6-10.3); Creatinine Clr Calc Pharmacy 33.8 ml/min; Est GFR (African American) 33.5 ml/min; Est GFR (Non-African American) 28.9 ml/min; Potassium 3.9 mmol/L (3.5-5.1)
--- NOTE | 2023-08-17 22:28 | Hospitalist Progress Note ---
Date of Service August 17, 2023 Assessment & Plan (1) Fluid overload: Plan: Suspect combination of CKD and CHF. UA to assess for proteinuria. Lasix 40mg IV daily I&Os - maintain net negative 1.5-2L daily Daily weights TTE Patient is tolerating above treatment plan. Vitals are stable. reviewed lab work. Continue diuretics as above. 08/16 is showing improvement (2) Cellulitis of leg: Plan: Possible diagnosis Appearance of left leg similar to wound care clinic on August 10 and may just be venous statis changes however currently on antibiotics with Bactrim therefore will continue antibiotics Pictures taken in H&P for comparison throughout hospitalization Based on wound culture he is growing Enterobacter cloacae and with his CKD will switch antibiotics to ceftriaxone Blood culture to be taken prior to antibiotics Clinically does not appear to be infected on 08/16 but will continue antibiotics. (3) Venous ulcer of left leg: Plan: Continue wound care nurse (4) Stage II pressure ulcer of left buttock: Plan: Does not appear infected Consult wound care nurse (5) Scrotal swelling: Plan: Suspected from overall hypervolemic state (6) Hypothyroidism: Plan: TSH 2.684 (07/27/23), no need to repeat Continue levothyroxine (7) Hypertension: Plan: Continue metoprolol, lisinopril Lasix as above (8) CKD (chronic kidney disease): Plan: Likely Cr slightly above baseline due to recent Bactrim use Continue to monitor with AM labs with Lasix (9) Atrial fibrillation: Plan: Paroxysmal - currently in AV dual paced rhythm Continue Eliquis for anticoagulation Continue metoprolol for rate control Continue amiodarone for rhythm control (10) Acid reflux disease: Plan: Switch omeprazole to pantoprazole per hospital formulary (11) Acute on chronic HFrEF (heart failure with reduced ejection fraction): Plan VTE Prophyalxis - Eliquis Diet - Low Na, Heart healthy, fluids restricted Disposition - admit to PCU Admission and Anticipated Discharge Date Admission Date: August 14, 2023 Subjective Patient reports no new symptoms. Review of Systems Review of Systems: All systems reviewed & are unremarkable except as noted in HPI & below Physical Exam Constitutional: well developed; + not well nourished and no acute distress Eyes: + anicteric sclerae; normal pupil size ENMT: external ear and nose normal, oropharynx normal Respiratory: normal respiratory effort; no respiratory distress Auscultation: + diminished lung sounds (bibasal); no crackles and no wheezes Cardiovascular: Rate/Rhythm: regular rate and regular rhythm Heart Sounds: no murmur Extremities: normal capillary refill and + pedal edema (2+ to thighs b/l equal); no calf tenderness Gastrointestinal (Abdomen): normal bowel sounds, soft, nontender, no hepatosplenomegaly Musculoskeletal: no cyanosis or clubbing, extremities motor strength 5/5 Neurologic: moves all extremities and awake; not confused Psychiatric: A+Ox3, euthymic affect Genitourinary: no CVA tenderness Results & Data Results & Data Vital Signs (Past 12 Hours) Vital Signs Temp Pulse Resp BP Pulse Ox O2 Del Method 08/17/23 19:54 36.7 C 75 18 129/89 95 Room Air 08/17/23 14:57 36.7 C 74 19 125/83 95 Room Air 08/17/23 11:30 36.5 C 74 20 130/86 95 Room Air PG Care Time/CCT Total # of Minutes Spent Total Time Spent with Patient: Total time spent is greater than 50% in coordination of care (as documented) at patient's floor/unit and/or counseling patient: Coding Level of Care Code 10080 SUB INP/OBS CARE 2/35MIN Diagnoses Fluid overload E87.70 Hypervolemia type: unspecified Cellulitis of leg L03.119 Venous ulcer of left leg I83.029; L97.929 Stage II pressure ulcer of left buttock L89.322 Scrotal swelling N50.89 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.2 Hypothyroidism type: due to medication Essential hypertension I10 Hypertension type: essential hypertension 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 Chronic kidney disease stage: stage 3 (moderate) Chronic kidney disease stage 3 subtype: stage 3b (GFR 30-44) Longstanding persistent atrial fibrillation I48.11 Atrial fibrillation type: longstanding persistent Gastroesophageal reflux disease without esophagitis K21.9 Esophagitis presence: without esophagitis Acute on chronic HFrEF (heart failure with reduced ejection fraction) I50.23 (1) Fluid overload Hypervolemia type: unspecified Qualified Code(s): E87.70 - Fluid overload, unspecified (6) Hypothyroidism Hypothyroidism type: due to medication Qualified Code(s): E03.2 - Hypothyroidism due to medicaments and other exogenous substances (7) Hypertension Hypertension type: essential hypertension Qualified Code(s): I10 - Essential (primary) hypertension (8) CKD (chronic kidney disease) Chronic kidney disease stage: stage 3 (moderate) Chronic kidney disease stage 3 subtype: stage 3b (GFR 30-44) Qualified Code(s): N18.32 - Chronic kidney disease, stage 3b (9) Atrial fibrillation Atrial fibrillation type: longstanding persistent Qualified Code(s): I48.11 - Longstanding persistent atrial fibrillation (10) Acid reflux disease Esophagitis presence: without esophagitis Qualified Code(s): K21.9 - Gastro- esophageal reflux disease without esophagitis
[2023-08-18 06:57] LABS: Hematocrit (blood only) 35.1 % (42.0-52.0); Hemoglobin 11.6 g/dl (14.0-18.0); Mean Corpuscular Hemoglobin 29.8 pg (25.0-34.0); Mean Corpuscular Volume 90.2 fL (80.0-100.0); Mean Platelet Volume 12.9 fL (9.4-12.4); Platelet Count 145 K/uL (130-400); RDW Coefficient of Variation 18.3 % (11.5-14.5); RDW Standard Deviation 60.4 fL (36.4-46.3); Red Blood Count 3.89 M/uL (4.70-6.10); White Blood Count 6.88 K/ul (4.8-10.8)
[2023-08-18 07:12] LABS: BUN Creatinine Ratio 25.4 (10-20); C Reactive Protein 1.72 mg/dl (0-0.5); Calcium 7.7 mg/dl (8.6-10.3); Creatinine Clr Calc Pharmacy 33.8 ml/min; Est GFR (African American) 33.5 ml/min; Est GFR (Non-African American) 28.9 ml/min
--- NOTE | 2023-08-18 22:58 | Hospitalist Progress Note ---
Date of Service August 18, 2023 Assessment & Plan (1) Fluid overload: Plan: Suspect combination of CKD and CHF. UA to assess for proteinuria. Lasix 40mg IV daily I&Os - maintain net negative 1.5-2L daily Daily weights TTE Patient is tolerating above treatment plan. Vitals are stable. reviewed lab work. Continue diuretics as above. Patient is about 1.5 liters net negative. Though patient is very edematous, patient is feeling better and asking for a discharge soon. May need to transition home diuretics (2) Cellulitis of leg: Plan: Possible diagnosis Appearance of left leg similar to wound care clinic on August 10 and may just be venous statis changes however currently on antibiotics with Bactrim therefore will continue antibiotics Pictures taken in H&P for comparison throughout hospitalization Based on wound culture he is growing Enterobacter cloacae and with his CKD will switch antibiotics to ceftriaxone Blood culture to be taken prior to antibiotics Clinically does not appear to be infected on 08/17 but will continue antibiotics. (3) Venous ulcer of left leg: Plan: Continue wound care nurse (4) Stage II pressure ulcer of left buttock: Plan: Does not appear infected Consult wound care nurse (5) Scrotal swelling: Plan: Suspected from overall hypervolemic state (6) Hypothyroidism: Plan: TSH 2.684 (07/27/23), no need to repeat Continue levothyroxine (7) Hypertension: Plan: Continue metoprolol, lisinopril Lasix as above (8) CKD (chronic kidney disease): Plan: Likely Cr slightly above baseline due to recent Bactrim use Continue to monitor with AM labs with Lasix (9) Atrial fibrillation: Plan: Paroxysmal - currently in AV dual paced rhythm Continue Eliquis for anticoagulation Continue metoprolol for rate control Continue amiodarone for rhythm control (10) Acid reflux disease: Plan: Switch omeprazole to pantoprazole per hospital formulary (11) Acute on chronic HFrEF (heart failure with reduced ejection fraction): Plan VTE Prophyalxis - Eliquis Diet - Low Na, Heart healthy, fluids restricted Disposition - admit to PCU Admission and Anticipated Discharge Date Admission Date: August 14, 2023 Subjective 82 yo male reports no new symptoms. He is feeling better. Review of Systems Review of Systems: All systems reviewed & are unremarkable except as noted in HPI & below Physical Exam Constitutional: well developed; + not well nourished and no acute distress Eyes: + anicteric sclerae; normal pupil size ENMT: external ear and nose normal, oropharynx normal Respiratory: normal respiratory effort; no respiratory distress Auscultation: + diminished lung sounds (bibasal); no crackles and no wheezes Cardiovascular: Rate/Rhythm: regular rate and regular rhythm Heart Sounds: no murmur Extremities: normal capillary refill and + pedal edema (2+ to thighs b/l equal); no calf tenderness Gastrointestinal (Abdomen): normal bowel sounds, soft, nontender, no hepatosplenomegaly Musculoskeletal: no cyanosis or clubbing, extremities motor strength 5/5 Neurologic: moves all extremities and awake; not confused Psychiatric: A+Ox3, euthymic affect Genitourinary: no CVA tenderness Results & Data Results & Data Vital Signs (Past 12 Hours) Vital Signs Temp Pulse Pulse Resp BP Pulse Ox O2 Del Method 08/18/23 22:53 75 08/18/23 22:41 37.0 C 75 20 156/92 H 93 Room Air 08/18/23 20:10 Room Air 08/18/23 19:26 37.1 C 75 18 145/99 H 97 Room Air 08/18/23 15:19 36.3 C L 74 19 131/87 96 Room Air 08/18/23 11:56 36.6 C 75 19 138/92 98 Room Air PG Care Time/CCT Total # of Minutes Spent Total Time Spent with Patient: Total time spent is greater than 50% in coordination of care (as documented) at patient's floor/unit and/or counseling patient: Coding Level of Care Code 02493 SUB INP/OBS CARE 2/35MIN Diagnoses Fluid overload E87.70 Hypervolemia type: unspecified Cellulitis of leg L03.119 Venous ulcer of left leg I83.029; L97.929 Stage II pressure ulcer of left buttock L89.322 Scrotal swelling N50.89 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.2 Hypothyroidism type: due to medication Essential hypertension I10 Hypertension type: essential hypertension 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 Chronic kidney disease stage: stage 3 (moderate) Chronic kidney disease stage 3 subtype: stage 3b (GFR 30-44) Longstanding persistent atrial fibrillation I48.11 Atrial fibrillation type: longstanding persistent Gastroesophageal reflux disease without esophagitis K21.9 Esophagitis presence: without esophagitis Acute on chronic HFrEF (heart failure with reduced ejection fraction) I50.23 (1) Fluid overload Hypervolemia type: unspecified Qualified Code(s): E87.70 - Fluid overload, unspecified (6) Hypothyroidism Hypothyroidism type: due to medication Qualified Code(s): E03.2 - Hypothyroidism due to medicaments and other exogenous substances (7) Hypertension Hypertension type: essential hypertension Qualified Code(s): I10 - Essential (primary) hypertension (8) CKD (chronic kidney disease) Chronic kidney disease stage: stage 3 (moderate) Chronic kidney disease stage 3 subtype: stage 3b (GFR 30-44) Qualified Code(s): N18.32 - Chronic kidney disease, stage 3b (9) Atrial fibrillation Atrial fibrillation type: longstanding persistent Qualified Code(s): I48.11 - Longstanding persistent atrial fibrillation (10) Acid reflux disease Esophagitis presence: without esophagitis Qualified Code(s): K21.9 - Gastro- esophageal reflux disease without esophagitis
[2023-08-19 06:53] LABS: Hematocrit (blood only) 33.1 % (42.0-52.0); Hemoglobin 11.2 g/dl (14.0-18.0); Mean Corpuscular Hemoglobin 29.9 pg (25.0-34.0); Mean Corpuscular Hgb Conc 33.8 g/dL (32.0-36.0); Mean Corpuscular Volume 88.5 fL (80.0-100.0); Mean Platelet Volume 12.7 fL (9.4-12.4); Platelet Count 155 K/uL (130-400); RDW Coefficient of Variation 18.4 % (11.5-14.5); RDW Standard Deviation 60.2 fL (36.4-46.3); Red Blood Count 3.74 M/uL (4.70-6.10); White Blood Count 6.65 K/ul (4.8-10.8)
[2023-08-19 07:09] LABS: BUN Creatinine Ratio 26.3 (10-20); Calcium 7.7 mg/dl (8.6-10.3); Creatinine Clr Calc Pharmacy 33.3 ml/min; Est GFR (African American) 34.9 ml/min; Est GFR (Non-African American) 30.1 ml/min; Potassium 3.6 mmol/L (3.5-5.1)
--- NOTE | 2023-08-19 09:32 | Hospitalist Progress Note ---
Date of Service August 19, 2023 Assessment & Plan (1) Fluid overload: Plan: Suspect combination of acute on chronic systolic and diastolic heart failure Lasix 40mg IV bid TTE shows EF 40% some RWMA and elevated right heart pressures Continue diuretics (2) Cellulitis of leg: Plan: Possible diagnosis Appearance of left leg similar to wound care clinic on August 10 and may just be venous statis changes however on antibiotics prior to admission with Bactrim Based on wound culture he is growing Enterobacter cloacae and with his CKD will switch antibiotics to ceftriaxone Blood culture to be taken prior to antibiotics blood cultures negative, urine culture with proteus mirabilis aragon sensitive noted to have venous stasis ulcer poa on left leg noted to have buttock pressure ulcer poa (3) Atrial fibrillation: Plan: Paroxysmal - currently in AV dual paced rhythm Continue Eliquis for anticoagulation Continue metoprolol for rate control Continue amiodarone for rhythm control additional chronic stable hypertension also using lisinopril and now lasix (4) UTI (urinary tract infection): Plan: Proteus mirabilis, poa continue antibiotics Plan VTE Prophyalxis - Eliquis Diet - Low Na, Heart healthy, fluids restricted chronic stable hypothyroidism chronic stable CKD3 Admission and Anticipated Discharge Date Admission Date: August 14, 2023 Subjective pt with significant edema to lower legs, has also chronic lymphedema to R upper arm pt does feel some improvement but is not his baseline Physical Exam Physical Exam: cardiac exam is regular lungs are diminished at the bases massive right arm lymphedema bilateral lower extremity edema, some stasis, some open areas Results & Data Results & Data Vital Signs (Past 12 Hours) Vital Signs Temp Pulse Pulse Resp BP Pulse Ox O2 Del Method 08/19/23 09:10 75 08/19/23 08:00 98.1 F 79 20 131/74 97 Room Air 08/19/23 02:39 98.2 F 75 20 126/85 95 Room Air 08/18/23 22:53 75 08/18/23 22:41 98.6 F 75 20 156/92 H 93 Room Air Laboratory Results review cbc review prp PG Care Time/CCT Total # of Minutes Spent Total Time Spent with Patient: Total time spent is greater than 50% in coordination of care (as documented) at patient's floor/unit and/or counseling patient: Coding Level of Care Code 53170 SUB INP/OBS CARE 3/50MIN Diagnoses Fluid overload E87.70 Hypervolemia type: unspecified Cellulitis of leg L03.119 Longstanding persistent atrial fibrillation I48.11 Atrial fibrillation type: longstanding persistent UTI (urinary tract infection) N39.0 (1) Fluid overload Hypervolemia type: unspecified Qualified Code(s): E87.70 - Fluid overload, unspecified (3) Atrial fibrillation Atrial fibrillation type: longstanding persistent Qualified Code(s): I48.11 - Longstanding persistent atrial fibrillation
--- NOTE | 2023-08-19 13:59 | Ultrasound Report ---
RENAL ULTRASOUND HISTORY: hematuria history of prostate cancer COMPARISON: Abdomen and pelvis CT 09/09/2022. FINDINGS: Right kidney: 10.0 cm. A 1.3 cm upper pole cyst. No hydronephrosis. Normal corticomedullary different iation and cortical thickness. Left kidney: 9.7 cm. No hydronephrosis. Normal corticomedullary differentiation and cortical thicknes s. Bladder: Bladder wall thickening/trabeculation. The ureteral jets were identified. Small right pleural effusion. IMPRESSION: 1. No hydronephrosis. 2. Bladder wall thickening/trabeculation. This may be chronic. 3. Small right pleural effusion. ACT 112: Negative or not required by law. Electronically signed by: Mendoza Uriostegui M.D. 08/19/2023 1:58 PM
[2023-08-19] MEDS: FUROSEMIDE 40 MG/4 ML VIAL IV SCH (17:54)
--- NOTE | 2023-08-20 17:16 | Discharge Summary ---
Discharge Summary Date of Service August 20, 2023 Notes For Next Care Provider pt discharged on scheduled lasix bid, check volume status and labs needs to continue with wound care has persistent hematuria previous turp and prostate ca, infection treatd, needs urology follow up Admission HPI Per Admitting Provider Kermit Rogers is an 82 year old male who presents to the ER from wound care clinic due to generalized progressive swelling ongoing for last few months. Sent over from wound care clinic due to increased leg edema and non healing venous ulcers. He doesn't weight himself therefore unknown if weight increasing (although on review of weights in EHR weight increased from 92kg in 10/2022 to 106kg in 06/2023).He has noticed dyspnea on exertion but none at rest. No orthopnea, PND, chest pain, presyncope or palpitations. He has as known history of congestive heart failure s/p bioprosthetic AVR in 2010. He reports taking his Lasix daily and not missing dosing. No recent change in diet. He took all his medications this morning. Principal Dx & Hospital Course #1 = Principal Diagnosis (1) Fluid overload: Suspect combination of acute on chronic systolic and diastolic heart failure Lasix 40mg po bid at discharge TTE shows EF 40% some RWMA and elevated right heart pressures outpt recheck and wound care (2) Cellulitis of leg: seems to be resolving with antibiotics, follow up at wound care Based on wound culture he is growing Enterobacter cloacae Blood culture to be taken prior to antibiotics blood cultures negative, urine culture with proteus mirabilis aragon sensitive noted to have venous stasis ulcer poa on left leg noted to have buttock pressure ulcer poa (3) Atrial fibrillation: Paroxysmal - currently in AV dual paced rhythm Continue Eliquis for anticoagulation Continue metoprolol for rate control Continue amiodarone for rhythm control additional chronic stable hypertension also using lisinopril and now lasix (4) UTI (urinary tract infection): Proteus mirabilis, poa continue antibiotics , amoxil at discharge Plan chronic stable hypothyroidism chronic stable CKD3 Discharge Exam pt looks improved has persistent hematuria edema still significant but improved, lymphedema is chronic Updated Medication List Medication Instructions Recorded Confirmed Type atorvastatin 80 mg tablet 80 mg PO HS #90 tabs 11/05/22 08/14/23 Rx bupropion HCl 150 mg tablet,12 hr 150 mg PO BID #180 ea 11/05/22 08/14/23 Rx sustained-release lisinopril 20 mg tablet 10 mg (1/2 x 20 mg) PO DAILY #180 11/05/22 08/14/23 Rx tabs omeprazole 20 mg capsule,delayed 20 mg PO DAILY #90 caps 01/28/23 08/14/23 Rx release folic acid 800 mcg tablet 800 mcg PO QAM 03/22/23 08/14/23 History levothyroxine 50 mcg tablet 50 mcg PO DAILY #90 tabs 05/04/23 08/14/23 Rx (Synthroid) metoprolol succinate 50 mg capsule 50 mg PO DAILY 06/17/23 08/14/23 History sprinkle, ext. release 24 hr Left Upper Extremity Compression #1 ea 07/03/23 08/14/23 Rx Sleeve galantamine 8 mg 24 hr 8 mg PO QAM #30 caps 07/15/23 08/14/23 Rx capsule,extended release amiodarone 200 mg tablet 400 mg PO QAM 08/14/23 08/14/23 History apixaban 2.5 mg tablet (Eliquis) 2.5 mg PO AMHS 08/14/23 08/14/23 History amoxicillin 500 mg tablet 1,000 mg (2 x 500 mg) PO BID 5 08/20/23 Rx days #20 tabs furosemide 40 mg tablet 40 mg PO BID #60 tabs 08/20/23 Rx Hospital Stay Data Consultations 08/14/23 17:49 ED Decision to Admit Stat Diagnostic Imagining Performed 08/19/23 11:04 US Kidney Bladder [US renal/blad retro comp] Routine Pending Results Patient Have Any Pending Studies at Discharge: No Discharge Instructions Given to Patient (Per Discharging Provider) Call your doctor if any of the following symptoms or problems start or get worse: * Shortness of breath or difficulty breathing * Wake up at night short of breath * Chest pain * Cough * increased Swelling of your hands, fee, or legs * More fatigued or tired with your normal activity * Palpitations - sudden fast heart beats WEIGHT * Weigh yourself every morning after using the bathroom. * Use the same scale. * Wear the same amount of clothing. * Write your weight down on your chart. * Call your doctor if you gain more than 2-3 pounds in 1-2 days. elevated your legs as much as you are able to MEDICATIONS * Use this discharge instruction sheet for instructions. * Take your medications at the time your doctor ordered. * Do not skip a dose of your medicines. * If you miss a dose of medicine, take as soon as possible, but DO NOT DOUBLE A DOSE. * Read your medicine information when you get home. * Know all of the side effects of your medicine. * Call your doctor's office if you have any side effects. * Be sure all of your doctors know what medicine and herbs you take (including cold, flu, and herbal medicine). * Pain Medicine: If you do not get relief from your pain, please call your doctor for help. Take the following with you to your follow-up doctor appointments: * Weight Chart * Medication List * List of questions Do not drink excessive alcohol, beer or wine.Restict sodium intake to less than 2000mg a day Total Time Total Time Spent Total Time Spent (In Minutes): greater than 30 minutes are required to complete discharge process Coding Level of Care Code 06742 INP/OBS DISCH >30 MIN Diagnoses Fluid overload E87.70 Hypervolemia type: unspecified Cellulitis of leg L03.119 Longstanding persistent atrial fibrillation I48.11 Atrial fibrillation type: longstanding persistent UTI (urinary tract infection) N39.0
== END 2023-08-20 13:13 | disposition home or self-care (01) | DRG 291 ==
LOC: SUATTDRO → ED 15:28 → 2S 18:31 → SUATTDRO 18:31 → 2S 21:23

== ENCOUNTER 2023-10-22 14:54 | Inpatient (IN) ==
--- NOTE | 2023-10-22 15:15 | Emergency Department Note ---
Impression & Plan Weakness, Falling, Fluid overload, Cellulitis, Anemia, CATRACHITO (acute kidney injury), Hallucinations ED Provider Note NAME: TROY TOSCANO AGE: 82 SEX: M : 1940 ARRIVES VIA: Ambulance INFORMANT: [Patient][nursing] ED PROVIDER(S): [Maikel Berry MD] CHIEF COMPLAINT: Infection HISTORY OF PRESENT ILLNESS: The patient is an 82-year-old male who was seen today at the wound center. There were concerns at the Center for active cellulitis and safety issues at home. Apparently, he lives alone and is falling and is not able to care well for himself. The patient did have dressing applied to both lower extremities at the wound center. Given the circumstances, he was sent to the hospital for evaluation. The patient currently denies shortness of breath but admits to some shortness of breath with exertion. He does not think he had a fever or chills. He fell 4 or so times already today. He denies any significant injury. The patient does have swelling of both lower extremities as well as his left upper extremity. He does think his swelling is worse today than it has been in the past. As per the note from the wound center, there was a friend with him at the appointment who voiced concerns for some hallucinations over the last few weeks. PMHx/PSHx/Social Hx: See Below PHYSICAL EXAM: GENERAL: Patient is in no acute distress. HEENT: No acute trauma, normocephalic atraumatic, mucous membranes moist, no nasal congestion. NECK: No stridor, no adenopathy, no meningismus, trachea is midline. LUNGS: Clear to auscultation bilaterally when listening anterior, no wheeze, no rhonchi, breath sounds equal. HEART: 2/6 to 3/6 systolic murmur, regular rate and rhythm. ABDOMEN: Soft, nontender, no peritonitis. EXTREMITIES: No cyanosis. Significant bilateral pedal edema with wraps in place. There is some erythema to both feet. There is edema and some chronic changes to the left upper extremity with some erythema present. Some warmth to the left upper extremity is noted. NEUROLOGIC: Oriented x 3, no acute motor or sensory deficits, no focal weakness. SKIN: No jaundice, no diaphoresis. DIFFERENTIAL DIAGNOSIS: Cellulitis, fluid overload, CHF, intracranial injury, anemia, electrolyte imbalance, among others. EMERGENCY DEPARTMENT PROCEDURES: MEDICAL DECISION MAKING: There is no leukocytosis. The patient is anemic. He has a history of anemia but today's value is lower than baseline, possibly delusional. There was a normal platelet count. Creatinine was elevated consistent with some acute kidney injury on top of chronic renal failure. Lactic acid level was elevated, this could be consistent with infection. There were some subtle liver enzyme elevations, these have been documented before. ECG shows what appears to be a functioning pacemaker, no dysrhythmia. Cardiac enzyme testing x 1 was slightly elevated, patient has a history of a mild troponin elevation. Chest x-ray does show a touch of heart failure, no focal infiltrate. On exam, the patient had pedal edema as well as edema to the left upper extremity. He had some erythema of the left upper extremity and lower extremities. The patient received IV cefepime as antibiotic coverage. He was given a dose of IV Lasix to help with the fluid overload. A small dose of IV saline was given to help with the lactic acidosis. The patient has been hallucinating. He has fallen multiple times. I did have a CT of the brain performed, there was no acute bleed or mass effect. The patient is not safe for discharge home. He lives alone and is not able to care for himself adequately. He appears to be fluid overloaded with cellulitis. He will require diuresis, IV antibiotic therapy, further care and potentially, placement once he leaves the hospital. I spoke with the patient and case management, the on-call hospitalist was consulted. Of note, the cause for the hallucinations is unclear but may be secondary to some intermittent hypoxia secondary to his fluid overload. Prior/Outside records/notes reviewed: Wound center note from today discussing his presentation and the need for referral to the ED. ECG per my interpretation: Indication was weakness and falling. The ECG shows an AV pacemaker with a rate of 89. There is some baseline artifact, no dysrhythmia or acute ST elevation. No PVCs. The QTc is 642. Continuous Cardiac Monitoring per my interpretation: An order was placed for continuous cardiac monitoring. The monitor shows a rate of 75 with AV pacing. Imaging/x-ray results per my interpretation: Chest x-ray does show a touch of heart failure, no focal infiltrate. Chronic Medical/Social conditions affecting care: Advanced age. Care/Management discussed with: Case management, the on-call hospitalist. Level of care consideration(s): After review of the information above and other included data: --I believe the patient requires escalation of care to admission DISPOSITION: Admission Past Med/Surg History Problem List (Updated 10/22/23 @ 16:41 by Maikel Berry MD) Hallucinations (Acute) CATRACHITO (acute kidney injury) (Acute) Anemia (Acute) Cellulitis (Acute) Fluid overload (Acute) Falling (Acute) Weakness (Acute) Venous ulcers of both lower extremities Stage 4 chronic kidney disease Frequent falls (Acute) Stage III pressure ulcer of buttock (Acute) Venous ulcer of left leg Stage II pressure ulcer of right buttock (Acute) Lymphedema Implantable cardioverter-defibrillator (ICD) discharge Cognitive disorder Abnormal ankle brachial index Chronic acquired lymphedema (Chronic) Bilateral lower extremity edema (Acute) Venous stasis ulcers of both lower extremities (Acute) Mass of joint of left shoulder H/O prostate cancer Presence of combination internal cardiac defibrillator (ICD) and pacemaker Right ischial pressure sore, stage 1 Coronary artery disease (Chronic) Depression (Chronic) Disc degeneration, lumbar (Chronic) Pure hypercholesterolemia (Chronic) Prediabetes (Chronic) Medical History Acute on chronic HFrEF (heart failure with reduced ejection fraction) CKD (chronic kidney disease) Atrial fibrillation Acid reflux disease Hypothyroidism Ventricular tachyarrhythmia Subclavian vein obstruction PAF (paroxysmal atrial fibrillation) Dyslipidemia, goal LDL below 70 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 COVID-19 Ventricular tachycardia Thrombocytopenia New onset atrial fibrillation Encounter for pre-operative examination Left bundle branch block Acute pancreatitis Prostate cancer PVC (premature ventricular contraction) Hyperthyroidism Hypertension Hyperhomocystinemia History of snuff use Former smoker Difficulty reading due to visual problem Cervical radiculopathy 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, 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, clinical stage TIc Status post biopsies, biopsy stage TIIa Divine grade 3+3 Status post seed implant with cesium 131 as boost 12/08/2006 Status post completion of IMRT/IGRT 02/26/2007" Surgical History (Updated 09/22/23 @ 14:40 by LIZ Guzman III) History of laparoscopic cholecystectomy (11/08/21) lap ish/ercp Nov 01 Chambers Status post aortic valve replacement with bioprosthetic valve H/O aortic valve repair H/O hernia repair Family History Mother Heart disease Brother Cancer Lung cancer Unknown Prostate cancer Father Prostate cancer Denies family history of Colon cancer Ovarian cancer Myocardial infarction Breast cancer Social History Smoking Status: Former smoker Tobacco Type: Cigarettes Age Started Using Tobacco: 8; Age Quit Using Tobacco: 75; packs per day: 2.5; Second Hand Exposure: No; Do You Dip or Chew Tobacco: No; Hx Alcohol Use: No Hx Substance Use: No Preferred Language: Mozambican Communication Ability: Effective Visual Impairment: No Limitations Hearing Ability: Use of Hearing Aid Planned Giving Officer Required: No Beliefs That Will Affect Care: None marital status: / Current Living Situation: Alone Current Living Situation Comment: home alone with cat current occupational status: retired How many Children do You have: 2 Feels Safe at Home: Yes Childhood Exposure to Second-Hand Smoke: Yes Diet: regular Diet Comment: regular caffeine: Yes during the past year weight has: remained stable Dental Care, Regularly: No Physical Activity Frequency: Does not Exercise Seatbelt Use: never Sunscreen Use: No Do you think of yourself as: straight/heterosexual Assistive Devices: Cane Allergies Allergies Allergy/AdvReac Type Severity Reaction Status Date / Time No Known Allergies Allergy Verified 09/28/23 09:06 Home Meds Home Medications Medication Instructions Recorded Confirmed metoprolol succinate 50 mg capsule 50 mg PO DAILY 06/17/23 09/28/23 sprinkle, ext. release 24 hr apixaban 2.5 mg tablet (Eliquis) 2.5 mg PO AMHS 08/14/23 09/28/23 Previous Rx's Medication Instructions Recorded lisinopril 20 mg tablet 10 mg (1/2 x 20 mg) PO DAILY #180 11/05/22 tabs omeprazole 20 mg capsule,delayed 20 mg PO DAILY #90 caps 01/28/23 release Left Upper Extremity Compression #1 ea 07/03/23 Sleeve atorvastatin 80 mg tablet 80 mg PO HS #90 tabs 09/15/23 bupropion HCl 150 mg tablet,12 hr 150 mg PO BID #180 ea 09/15/23 sustained-release levothyroxine 50 mcg tablet 50 mcg PO DAILY #90 tabs 09/15/23 (Synthroid) amiodarone 200 mg tablet 400 mg (2 x 200 mg) PO QAM #180 09/16/23 tabs empagliflozin 10 mg tablet 10 mg PO DAILY #90 tabs 09/24/23 (Jardiance) folic acid 800 mcg tablet 800 mcg PO QAM #90 tabs 10/14/23 galantamine 8 mg 24 hr 8 mg PO QAM #30 caps 10/14/23 capsule,extended release doxycycline hyclate 100 mg capsule 100 mg PO BID 10 days #20 caps 10/19/23 furosemide 40 mg tablet 40 mg PO BID #60 tabs 10/19/23 Results & Data (ED) Vital Signs Vital Signs - 24 hr 10/22/23 15:05 10/22/23 15:12 10/22/23 15:15 Pulse Rate 75 75 Respiratory Rate 20 16 Blood Pressure 129/85 122/88 Blood Pressure Mean 99 107 Pulse Oximetry 99 99 96 Oxygen Delivery Method Room Air Room Air Room Air Sepsis Recent Fever Within 48 Hours No Sepsis New/Unexplained Change in Mental Status No Sepsis Action Taken by Nursing No Action Required 10/22/23 15:30 10/22/23 16:15 Pulse Rate 75 75 Respiratory Rate 18 16 Blood Pressure 132/88 137/91 Blood Pressure Mean 99 105 Pulse Oximetry 96 95 Oxygen Delivery Method Sepsis Recent Fever Within 48 Hours Sepsis New/Unexplained Change in Mental Status Sepsis Action Taken by Long Term Medications Current Medication List: was personally reviewed by me Laboratory Data Attestation: I reviewed the patient's lab results. 10/22/23 15:28 10/22/23 15:28 Lab Results 10/22/23 10/22/23 Range/Units 15:28 16:00 WBC 7.09 (4.8-10.8) K/ul RBC 3.63 L (4.70-6.10) M/uL Hgb 10.5 L (14.0-18.0) g/dl Hct 32.2 L (42.0-52.0) % MCV 88.7 (80.0-100.0) fL MCH 28.9 (25.0-34.0) pg MCHC 32.6 (32.0-36.0) g/dL RDW Std Deviation 55.1 H (36.4-46.3) fL RDW Coeff of Yony 17.2 H (11.5-14.5) % Plt Count 174 (130-400) K/uL MPV 12.5 H (9.4-12.4) fL Immature Gran % (Auto) 0.3 % Neut % (Auto) 76.5 % Lymph % (Auto) 10.6 % Pine % (Auto) 11.7 % Eos % (Auto) 0.3 % Baso % (Auto) 0.6 % Neut # (Auto) 5.43 (1.40-6.50) K/uL Lymph # (Auto) 0.75 L (1.20-3.40) K/uL Pine # (Auto) 0.83 H (0.11-0.59) K/uL Eos # (Auto) 0.02 (0.00-0.50) K/uL Baso # (Auto) 0.04 (0.00-0.20) K/uL Immature Gran # (Auto) 0.02 (0.01-0.20) K/uL Sodium 144 (136-145) mmol/L Potassium 4.1 (3.5-5.1) mmol/L Chloride 107 (98-107) mmol/L Carbon Dioxide 28 (21-32) mmol/L Anion Gap 9 (3-11) BUN 43 H (6-23) mg/dl Creatinine 2.27 H (0.6-1.4) mg/dl Est Cr Clr Drug Dosing 28.0 ml/min Est GFR ( Amer) 29.6 ml/min Est GFR (Non-Af Amer) 25.5 ml/min BUN/Creatinine Ratio 18.9 (10-20) Glucose 104 H (70-99(Fasting)) mg/dl Lactate 2.4 H* (0.4-2.0) mmol/L Calcium 8.8 (8.6-10.3) mg/dl Magnesium 2.5 H (1.7-2.4) mg/dl Total Bilirubin 1.4 H (0.2-1.0) mg/dl Direct Bilirubin 0.5 H (0-0.2) mg/dl AST 47 H (13-39) U/L ALT 32 (7-52) U/L Alkaline Phosphatase 168 H (34-104) U/L Troponin I High Sens 57.9 H* (0-20) pg/ml Total Protein 7.5 (6.0-8.3) gm/dl Albumin 3.6 (3.4-5.0) gm/dl Procalcitonin 0.14 (0-0.5) ng/ml Administered Medications Discontinued Medications Furosemide (Furosemide 40 Mg/4 Ml Vial) 40 mg IV ONE ONE Stop: 10/22/23 15:51 Last Admin: 10/22/23 16:01 Dose: 40 mg Documented By: PHU Sodium Chloride (Nss) 500 mls @ 999 mls/hr IV .Q31M JUANJOSE Stop: 10/22/23 15:30 Last Infusion: 10/22/23 16:24 Dose: Infused Documented By: Admin: 10/22/23 15:38 Dose: 999 mls/hr Documented By: PHU Cefepime HCl (Maxipime) 2,000 mg in 20 mls @ 5 mls/min IV NOW STA; Protocol Stop: 10/22/23 15:01 Last Admin: 10/22/23 15:38 Dose: 5 mls/min Documented By: PHU Imaging Data Radiologist's Impression: Chest X-Ray 10/22/23 14:58 XR chest 1V portable HISTORY: Sepsis COMPARISON: Chest 08/14/2023. FINDINGS: Slightly rotated study. No pneumothorax. The heart remains enlarged. There are poststernotomy changes, left-sided pacemaker/defibrillator, and a cardiac valve prosthesis again noted. There is mild central pulmonary vascular congestion without overt edema. Trace right pleural effusions is again noted. There are old, healed left-sided rib fractures. A few bibasilar linear densities favor subsegmental atelectasis. No new focal lung consolidations to suggest a pneumonia. IMPRESSION: Cardiomegaly with mild congestive change and a trace right pleural effusion. This is similar to the prior study. ACT 112: Negative or not required by law. Electronically signed by: Mendoza Uriostegui M.D. 10/22/2023 3:[address] 10/22/23 15:[address] DOSE: 953.61 mGy.cm HISTORY: falling, trauma TECHNIQUE: Multiaxial CT images of the head were performed without the use of intravenous contrast. Automated exposure control was utilized for this study. A dose lowering technique was utilized adhering to the principles of ALARA. Comparison: Head CT 09/02/2023. Findings: The paranasal sinuses and mastoid air cells are clear. The calvarium and skull base are intact. The ventricles and sulci are within normal limits. There is no mass, hematoma, midline shift, or acute infarct. Mild left periorbital soft tissue swelling. Impression: No acute intracranial abnormality. Mild left periorbital soft tissue swelling. ACT 112: Negative or not required by law. Electronically signed by: Mendoza Uriostegui M.D. 10/22/2023 4:18 PM Discharge Plan Visit Data Chief Complaint: Swelling/Edema to Extremity Stated Complaint: LEG EDEMA W/SEEPING, FALLS, CELLULITIS ED Provider: Maikel Berry Discharge Problem: Weakness, Falling, Fluid overload, Cellulitis, Anemia, CATRACHITO (acute kidney injury), Hallucinations Patient Disposition: Admitted As Inpatient Condition: Fair Forms Stand Alone Forms: [facility] [employer] Prescriptions Prescriptions: No Action omeprazole 20 mg capsule,delayed release(DR/EC) 20 mg PO DAILY Qty: 90 3RF (DME) Left Upper Extremity Compression Sleeve See Rx Instructions .Route .MEDSUPPLY Qty: 1 0RF Rx Instructions: As directed atorvastatin 80 mg tablet 80 mg PO HS Qty: 90 3RF bupropion HCl 150 mg tablet sustained-release 12 hr 150 mg PO BID Qty: 180 3RF levothyroxine [Synthroid] 50 mcg tablet 50 mcg PO DAILY Qty: 90 3RF Rx Instructions: Take first thing in the morning on an empty stomach with an 8 oz glass of water. Do not eat or take other medications for 30 minutes. amiodarone 200 mg tablet 400 mg PO QAM Qty: 180 3RF galantamine 8 mg capsule,ext rel. pellets 24 hr 8 mg PO QAM Qty: 30 2RF Rx Instructions: administer with breakfast folic acid 800 mcg tablet 800 mcg PO QAM Qty: 90 3RF furosemide 40 mg tablet 40 mg PO BID Qty: 60 1RF lisinopril 20 mg tablet 10 mg PO DAILY Qty: 180 1RF metoprolol succinate 50 mg capsule,sprinkle,ER 24hr 50 mg PO DAILY Jardiance 10 mg tablet 10 mg PO DAILY Qty: 90 3RF doxycycline hyclate 100 mg capsule 100 mg PO BID 10 Days Qty: 20 0RF Eliquis 2.5 mg tablet 2.5 mg PO AMHS Referrals Referrals: Juan Manuel Early III, CRNP [Primary Care Provider] - Discharge Problem: Fluid overload Qualifiers: Hypervolemia type: unspecified Qualified Code(s): E87.70 - Fluid overload, unspecified Cellulitis Qualifiers: Site of cellulitis: extremity Site of cellulitis of extremity: lower extremity Laterality: unspecified laterality Qualified Code(s): L03.119 - Cellulitis of unspecified part of limb Anemia Qualifiers: Anemia type: unspecified type Qualified Code(s): D64.9 - Anemia, unspecified
--- NOTE | 2023-10-22 15:32 | XRay Report ---
XR chest 1V portable HISTORY: Sepsis COMPARISON: Chest 08/14/2023. FINDINGS: Slightly rotated study. No pneumothorax. The heart remains enlarged. There are poststernoto my changes, left-sided pacemaker/defibrillator, and a cardiac valve prosthesis again noted. There is mild central pulmonary vascular congestion without overt edema. Trace right pleural effusions is agai n noted. There are old, healed left-sided rib fractures. A few bibasilar linear densities favor subse gmental atelectasis. No new focal lung consolidations to suggest a pneumonia. IMPRESSION: Cardiomegaly with mild congestive change and a trace right pleural effusion. This is similar to the p rior study. ACT 112: Negative or not required by law. Electronically signed by: Mendoza Uriostegui M.D. 10/22/2023 3:31 PM
[2023-10-22] MEDS: SODIUM CHLORIDE 0.9% 500 ML IV SCH (15:38)
[2023-10-22] MEDS: CEFEPIME 2,000 MG/20 ML VIAL IV STA (15:38)
[2023-10-22 15:44] LABS: Basophils # (auto) 0.04 K/uL (0.00-0.20); Basophils % (auto) 0.6 %; Eosinophils # (auto) 0.02 K/uL (0.00-0.50); Eosinophils % (auto) 0.3 %; Hematocrit (blood only) 32.2 % (42.0-52.0); Hemoglobin 10.5 g/dl (14.0-18.0); Immature Granulocytes # (auto) 0.02 K/uL (0.01-0.20); Immature Granulocytes % (auto) 0.3 %; Lymphocytes # (auto) 0.75 K/uL (1.20-3.40); Lymphocytes % (auto) 10.6 %; Mean Corpuscular Hemoglobin 28.9 pg (25.0-34.0); Mean Corpuscular Hgb Conc 32.6 g/dL (32.0-36.0); Mean Corpuscular Volume 88.7 fL (80.0-100.0); Mean Platelet Volume 12.5 fL (9.4-12.4); Monocytes # (auto) 0.83 K/uL (0.11-0.59); Monocytes % (auto) 11.7 %; Neutrophils # (auto) 5.43 K/uL (1.40-6.50); Neutrophils % (auto) 76.5 %; Platelet Count 174 K/uL (130-400); RDW Coefficient of Variation 17.2 % (11.5-14.5); RDW Standard Deviation 55.1 fL (36.4-46.3); Red Blood Count 3.63 M/uL (4.70-6.10); White Blood Count 7.09 K/ul (4.8-10.8)
[2023-10-22 16:01] LABS: Albumin Level 3.6 gm/dl (3.4-5.0); BUN Creatinine Ratio 18.9 (10-20); Bilirubin Direct 0.5 mg/dl (0-0.2); Bilirubin,Total 1.4 mg/dl (0.2-1.0); Calcium 8.8 mg/dl (8.6-10.3); Est GFR (African American) 29.6 ml/min; Est GFR (Non-African American) 25.5 ml/min; Magnesium 2.5 mg/dl (1.7-2.4); Potassium 4.1 mmol/L (3.5-5.1); Total Protein 7.5 gm/dl (6.0-8.3)
[2023-10-22] MEDS: FUROSEMIDE 40 MG/4 ML VIAL IV ONE (16:01)
[2023-10-22 16:10] LABS: Troponin I High Sensitivity 57.9 pg/ml (0-20)
--- NOTE | 2023-10-22 16:20 | CT Scan Report ---
HEAD CT NONCONTRAST CT DOSE: 953.61 mGy.cm HISTORY: falling, trauma TECHNIQUE: Multiaxial CT images of the head were performed without the use of intravenous contrast. A utomated exposure control was utilized for this study. A dose lowering technique was utilized adheri ng to the principles of ALARA. Comparison: Head CT 09/02/2023. Findings: The paranasal sinuses and mastoid air cells are clear. The calvarium and skull base are int act. The ventricles and sulci are within normal limits. There is no mass, hematoma, midline shift, or acute infarct. Mild left periorbital soft tissue swelling. Impression: No acute intracranial abnormality. Mild left periorbital soft tissue swelling. ACT 112: Negative or not required by law. Electronically signed by: Mendoza Uriostegui M.D. 10/22/2023 4:18 PM
--- NOTE | 2023-10-22 16:41 | History & Physical Report ---
Date of Service October 22, 2023 Assessment & Plan (1) Cellulitis: Plan: Admit to med/telemetry on pulse extremity Currently stable and nontoxic-appearing Was sent from the wound care clinic due to multiple issues including bilateral lower extremity cellulitis, multiple falls at home, and auditory hallucinations Patient with significant cellulitis of the bilateral lower extremities on edema No leukocytosis, status post 1 dose of cefepime, will continue with Zosyn moving forward as cefepime could potentially worsen his hallucinations Wound care nurse consult placed Continue home Eliquis for DVT prophylaxis Heart healthy diet with 2 g sodium and 1800 fluid restriction AM CBC, CMP, mag, PT/INR (2) Fluid overload: Plan: Patient presents significant volume overloaded Currently stable on room air and in no respiratory distress Will add BNP for further evaluation Presentation is similar to multiple previous admissions, he normally responds well to 40 mg IV Lasix twice daily Status post 40 mg IV Lasix in the ED, will continue with 40 mg IV twice daily moving forward Will place Devine cath on admission as patient will not be able to have a condom cath stay in place and is a high fall risk, monitor intake output every shift Monitor daily weights (3) Hallucinations: Plan: Patient reports recent auditory hallucinations of voices are arguing with him, confirms there is no one in his home when this happens No focal neuro defects on exam, CT of the head and brain without contrast is negative for acute intracranial findings Could be due to current infection For now we will continue with fall/aspiration precautions, bed alarm Monitor for improvement with treatment of his cellulitis Can consider further workup if not improving (4) Elevated troponin: Plan: Initial high-sensitivity troponin elevated 57, 2-hour repeat will be obtained shortly Patient denies recent chest pain, this elevation is similar to previous admissions No acute ST segment or T wave changes on EKG, this is likely due to demand from volume overload Continue to monitor on telemetry, will follow-up on repeat high-sensitivity troponin and continue IV diuresis (5) Falling: Plan: Patient has been falling frequently at home with lyase fall earlier today causing right forehead swelling No other acute trauma on exam, CT of the head and brain without contrast was negative for acute intracranial findings Patient does not appear to be able to safely care for himself at this time as his hygiene is very poor, he appears disheveled on exam PT/OT/case management consults have been placed, will need to try and reach out to family to see what options we have moving forward (6) Coronary artery disease: Plan: Patient denies recent chest pain, no acute ECG changes today Continue atorvastatin and Eliquis (7) Atrial fibrillation: Plan: Currently in a paced rhythm Continue Eliquis, amiodarone, and metoprolol Plan Patient was discussed with Dr. 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 The patient was seen by his PCP for the symptoms on 10/19/2023 and was prescribed a course of doxycycline and scheduled for wound care clinic appointment, it does not appear that he picked up the prescription for doxycycline.He remained stable in the ED. Labs were significant for a creatinine of 2.27 (baseline appears to be near 2.0), lactate of 2.4, mag of 2.5, total bili of 1.4, direct bili of 0.5, high-sensitivity troponin of 57. CT of the head and brain without contrast noted mild left periorbital soft tissue swelling but was otherwise negative for acute findings. Chest x-ray was read as cardiomegaly with mild congestive changes and a trace right pleural effusion. This appears similar to prior study. Prior to admission the patient was given dose of cefepime, 500 mL NSS, and 40 mg IV Lasix. Patient was sitting in bed in no acute distress at the time of exam, history was somewhat limited due to his acute illness. He confirms that his lower extremities have been swollen and red for "a while" he was unable to tell me how long they have been getting progressively worse. He does confirm that he has been having multiple falls recently with his last being earlier this afternoon. He confirms that when he fell he did hit the right side of his forehead but denies losing consciousness. He states that he tripped on the corner of his table causing him to lose his balance and fall. He denies any other pain besides his forehead at this time. When asked if he has been having any hallucinations he confirms that he has. When asked what kind he has been having he states that he has been arguing with people who are not there. When asked if he has any friends or family that helped to come care for him he states, "my family because sometimes but I always tell them I am fine because I do not want to bother them". Denies recent fever, chills, chest pain, shortness of breath, abdominal pain, nausea/vomiting, dysuria, hematuria, diarrhea, melena. Please refer to Dr. Altamirano's attestation for any changes to the treatment plan Allergies Allergy/AdvReac Type Severity Reaction Status Date / Time No Known Allergies Allergy Verified 10/22/23 17:20 Home Medications Medication Instructions Recorded Confirmed Type lisinopril 20 mg tablet 10 mg (1/2 x 20 mg) PO DAILY #180 11/05/22 10/22/23 Rx tabs omeprazole 20 mg capsule,delayed 20 mg PO DAILY #90 caps 01/28/23 10/22/23 Rx release metoprolol succinate 50 mg capsule 50 mg PO DAILY 06/17/23 10/22/23 History sprinkle, ext. release 24 hr Left Upper Extremity Compression #1 ea 07/03/23 09/28/23 Rx Sleeve apixaban 2.5 mg tablet (Eliquis) 2.5 mg PO AMHS 08/14/23 10/22/23 History atorvastatin 80 mg tablet 80 mg PO HS #90 tabs 09/15/23 10/22/23 Rx bupropion HCl 150 mg tablet,12 hr 150 mg PO BID #180 ea 09/15/23 10/22/23 Rx sustained-release levothyroxine 50 mcg tablet 50 mcg PO DAILY #90 tabs 09/15/23 10/22/23 Rx (Synthroid) amiodarone 200 mg tablet 400 mg (2 x 200 mg) PO QAM #180 09/16/23 10/22/23 Rx tabs empagliflozin 10 mg tablet 10 mg PO DAILY #90 tabs 09/24/23 10/22/23 Rx (Jardiance) folic acid 800 mcg tablet 800 mcg PO QAM #90 tabs 10/14/23 10/22/23 Rx galantamine 8 mg 24 hr 8 mg PO QAM #30 caps 10/14/23 10/22/23 Rx capsule,extended release furosemide 40 mg tablet 40 mg PO BID #60 tabs 10/19/23 10/22/23 Rx doxycycline hyclate 100 mg capsule 0 mg PO BID 10/22/23 10/22/23 History Past Med/Surg History Problem List (Updated 10/25/23 @ 11:56 by Elda Shah PA-C) B12 deficiency S/P AVR (aortic valve replacement) HTN, goal below 140/80 Acute on chronic combined systolic (congestive) and diastolic (congestive) heart failure Hallucinations (Acute) CATRACHITO (acute kidney injury) (Acute) Anemia (Acute) Cellulitis (Acute) Fluid overload (Acute) Falling (Acute) Weakness (Acute) Venous ulcers of both lower extremities Stage 4 chronic kidney disease Frequent falls (Acute) Stage III pressure ulcer of buttock (Acute) Venous ulcer of left leg Stage II pressure ulcer of right buttock (Acute) Lymphedema Implantable cardioverter-defibrillator (ICD) discharge Cognitive disorder Abnormal ankle brachial index Chronic acquired lymphedema (Chronic) Bilateral lower extremity edema (Acute) Venous stasis ulcers of both lower extremities (Acute) Mass of joint of left shoulder H/O prostate cancer Presence of combination internal cardiac defibrillator (ICD) and pacemaker Right ischial pressure sore, stage 1 Coronary artery disease (Chronic) Depression (Chronic) Disc degeneration, lumbar (Chronic) Pure hypercholesterolemia (Chronic) Prediabetes (Chronic) Medical History Acute on chronic HFrEF (heart failure with reduced ejection fraction) CKD (chronic kidney disease) Atrial fibrillation Acid reflux disease Hypothyroidism Ventricular tachyarrhythmia Subclavian vein obstruction PAF (paroxysmal atrial fibrillation) Dyslipidemia, goal LDL below 70 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 COVID-19 Ventricular tachycardia Thrombocytopenia New onset atrial fibrillation Encounter for pre-operative examination Left bundle branch block Acute pancreatitis Prostate cancer PVC (premature ventricular contraction) Hyperthyroidism Hypertension Hyperhomocystinemia History of snuff use Former smoker Difficulty reading due to visual problem Cervical radiculopathy 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, 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, clinical stage TIc Status post biopsies, biopsy stage TIIa Divine grade 3+3 Status post seed implant with cesium 131 as boost 12/08/2006 Status post completion of IMRT/IGRT 02/26/2007" Surgical History History of laparoscopic cholecystectomy (11/08/21) lap ish/ercp Nov 01 Chambers Status post aortic valve replacement with bioprosthetic valve H/O aortic valve repair H/O hernia repair Family History Mother Heart disease Brother Cancer Lung cancer Unknown Prostate cancer Father Prostate cancer Denies family history of Colon cancer Ovarian cancer Myocardial infarction Breast cancer Social History Smoking Status: Never smoker Tobacco Type: Cigarettes Age Started Using Tobacco: 8; Age Quit Using Tobacco: 75; packs per day: 2.5; Second Hand Exposure: No; Do You Dip or Chew Tobacco: No; Hx Alcohol Use: No Hx Substance Use: No Preferred Language: Hebrew Communication Ability: Effective Visual Impairment: No Limitations Hearing Ability: Use of Hearing Aid 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 Cellar Required: No Beliefs That Will Affect Care: None marital status: / Current Living Situation: Alone Current Living Situation Comment: lives at home alone with his cat current occupational status: retired How many Children do You have: 2 Feels Safe at Home: Yes Childhood Exposure to Second-Hand Smoke: Yes Diet: regular Diet Comment: regular caffeine: Yes during the past year weight has: remained stable Dental Care, Regularly: No Physical Activity Frequency: Does not Exercise Seatbelt Use: never Sunscreen Use: No Do you think of yourself as: straight/heterosexual Assistive Devices: Cane and Walker Physical Exam 2 Physical Exam: Physical Exam: General: In no acute distress, stated age, disheveled appearing with very poor hygiene, non-toxic appearing HEENT: Mild swelling noted above the right eyebrow from fall earlier today, no scleral icterus, pupils around round, symmetrical, and reactive to light, moist mucus membranes, trachea midline, no thyromegaly Chest/Pulm: No respiratory distress, symmetrical chest expansion, decreased breath sounds in the BL lower lung us, otherwise CTA Cardiac: RRR, no murmurs noted Abdomen: Negative for ascites and bruising, normoactive bowel sounds, soft, non-tender to palpation throughout Musculoskeletal: No other acute trauma on exam besides right forehead swelling, patient with intact Extremities: Patient with LUE lymphedema as per previous admissions, intact left radial pulse, see pictures of the BL LE's below for further details, intact DP and PT pulses in the BL LE's Skin: See pictures attached below Neuro: Alert and oriented to person, place, month, year, and president, no focal defects, CN II-XII tested and intact, finger to nose test negative, no tremors noted Psych: No acute distress, calm and cooperative during the exam Results & Data Results & Data Vital Signs (Past 12 Hours) Vital Signs Pulse Resp BP Pulse Ox O2 Del Method 10/22/23 16:15 75 16 137/91 95 10/22/23 15:30 75 18 132/88 96 10/22/23 15:15 75 16 122/88 96 Room Air 10/22/23 15:12 99 Room Air 10/22/23 15:05 75 20 129/85 99 Room Air Laboratory Results Abnormal lab results 10/22/23 10/22/23 Range/Units 15:28 16:00 RBC 3.63 L (4.70-6.10) M/uL Hgb 10.5 L (14.0-18.0) g/dl Hct 32.2 L (42.0-52.0) % RDW Std Deviation 55.1 H (36.4-46.3) fL RDW Coeff of Yony 17.2 H (11.5-14.5) % MPV 12.5 H (9.4-12.4) fL Lymph # (Auto) 0.75 L (1.20-3.40) K/uL [place] # (Auto) 0.83 H (0.11-0.59) K/uL BUN 43 H (6-23) mg/dl Creatinine 2.27 H (0.6-1.4) mg/dl Glucose 104 H (70-99(Fasting)) mg/dl Lactate 2.4 H* (0.4-2.0) mmol/L Magnesium 2.5 H (1.7-2.4) mg/dl Total Bilirubin 1.4 H (0.2-1.0) mg/dl Direct Bilirubin 0.5 H (0-0.2) mg/dl AST 47 H (13-39) U/L Alkaline Phosphatase 168 H (34-104) U/L Troponin I High Sens 57.9 H* (0-20) pg/ml Diagnostic Findings Chest X-Ray 10/22/23 14:58 XR chest 1V portable HISTORY: Sepsis COMPARISON: Chest 08/14/2023. FINDINGS: Slightly rotated study. No pneumothorax. The heart remains enlarged. There are poststernotomy changes, left-sided pacemaker/defibrillator, and a cardiac valve prosthesis again noted. There is mild central pulmonary vascular congestion without overt edema. Trace right pleural effusions is again noted. There are old, healed left-sided rib fractures. A few bibasilar linear densities favor subsegmental atelectasis. No new focal lung consolidations to suggest a pneumonia. IMPRESSION: Cardiomegaly with mild congestive change and a trace right pleural effusion. This is similar to the prior study. ACT 112: Negative or not required by law. Electronically signed by: Mendoza Uriostegui M.D. 10/22/2023 3:[address] 10/22/23 15:[address] DOSE: 953.61 mGy.cm HISTORY: falling, trauma TECHNIQUE: Multiaxial CT images of the head were performed without the use of intravenous contrast. Automated exposure control was utilized for this study. A dose lowering technique was utilized adhering to the principles of ALARA. Comparison: Head CT 09/02/2023. Findings: The paranasal sinuses and mastoid air cells are clear. The calvarium and skull base are intact. The ventricles and sulci are within normal limits. There is no mass, hematoma, midline shift, or acute infarct. Mild left periorbital soft tissue swelling. Impression: No acute intracranial abnormality. Mild left periorbital soft tissue swelling. ACT 112: Negative or not required by law. Electronically signed by: Mendoza Uriostegui M.D. 10/22/2023 4:18 PM ECG Additional Comments: AV dual-paced rhythm with occasional ventricular-paced complexes Abnormal ECG When compared with ECG of 14-AUG-2023 16:04, Vent. rate has increased BY 14 BPM Code Status & VTE Plan Code Status Full code VTE Prophylaxis Plan VTE Prophylaxis will be ordered: Yes Supervising Physician Co-Signing Physician Notes I personally saw and examined the patient. I verified all pillai points and agree with David Jordan PA-C with the following exceptions and/or additions: 82 year old male presents to the ER from wound care clinic with worsening leg swelling and erythema O/E HS RRR, no murmurs, Chest CTAB, Abdo SNT, bilateral leg erythema and swelling as above pictures, left upper extremity edema (chronic from lymphedema) A/P Cellulitis - difficult to tell definitive infection vs. swelling however wound care who he sees regularly feel this is cellulitic again and would account for his increased confusion. History of pseudomonas from wound culture therefore will treat with Zosyn HF with borderline EF - diuresed well on Lasix 40mg IV BID last admission therefore will trial this again with strict I&Os and daily weights to determine ongoing dosing. PG Care Time/CCT Total # of Minutes Spent Total Time Spent with Patient: Total time spent is greater than 50% in coordination of care (as documented) at patient's floor/unit and/or counseling patient: Coding [place] [id number] INT INP/OBS CARE 3/75MIN Patient Type Established Medical Decision Making High Complexity Diagnoses Cellulitis L03.119 Laterality: unspecified laterality Site of cellulitis: extremity Site of cellulitis of extremity: lower extremity Fluid overload E87.70 Hypervolemia type: unspecified Hallucinations R44.3 Elevated troponin R77.8 Falling R29.6 Coronary artery disease involving picayune coronary artery of picayune heart without angina pectoris I25.10 Associated angina: without angina Coronary Disease-Associated Artery/Lesion type: picayune artery [place] vs. transplanted heart: picayune heart Longstanding persistent atrial fibrillation I48.11 Atrial fibrillation type: longstanding persistent (1) Cellulitis Laterality: unspecified laterality Site of cellulitis: extremity Site of cellulitis of extremity: lower extremity Qualified Code(s): L03.119 - Cellulitis of unspecified part of limb (2) Fluid overload Hypervolemia type: unspecified Qualified Code(s): E87.70 - Fluid overload, unspecified (6) Coronary artery disease Associated angina: without angina Coronary Disease-Associated Artery/Lesion type: pic[place]une artery [place] vs. transplanted heart: picayune heart Qualified Code(s): I25.10 - Atherosclerotic heart disease of pic[place]une coronary artery without angina pectoris (7) Atrial fibrillation Atrial fibrillation type: longstanding persistent Qualified Code(s): I48.11 - Longstanding persistent atrial fibrillation
[2023-10-22] MEDS ORDERED: ACETAMINOPHEN 325 MG TAB PO PRN (17:06)
[2023-10-22 17:36] LABS: Appearance Urine Clear (Clear); Bacteria Urine Automated None Seen (None Seen); Bilirubin Urine Negative (Negative); Blood Urine Negative (Negative); Color Urine Yellow; Epithelial Cell Urine Auto 0-2 /hpf (0-2); Glucose Urine UA Negative (Negative); Ketones Urine Negative (Negative); Leukocyte Esterase Urine Negative (Negative); Nitrite Urine Negative (Negative); Protein Urine Trace (Negative); RBC Urine Automated 0-2 /hpf (0-2); Specific Gravity Urine 1.014 (1.000-1.030); Urobilinogen Urine Negative (Negative); WBC Urine Automated 0-5 /hpf (0-5)
--- NOTE | 2023-10-22 20:32 | Electrocardiogram Report ---
Test Reason : Blood Pressure : / mmHG Vent. Rate : 089 BPM Atrial Rate : 061 BPM P-R Int : 126 ms QRS Dur : 198 ms QT Int : 528 ms P-R-T Axes : 000 -80 100 degrees QTc Int : 642 ms AV dual-paced rhythm with occasional ventricular-paced complexes Abnormal ECG When compared with ECG of 14-AUG-2023 16:04, Vent. rate has increased BY 14 BPM Confirmed by Eugenio Argueta ([id number]) on 10/22/2023 8:32:00 PM Referred By: Confirmed By:Scott Argueta
[2023-10-22] MEDS: PIPER/TAZO 4.5g in D5W MINI-B 100 ML IV ONE (22:17)
[2023-10-22] MEDS: APIXABAN 2.5 MG TAB PO SCH (22:19)
[2023-10-22] MEDS: ATORVASTATIN 40 MG TAB PO SCH (22:19)
[2023-10-22] MEDS: buPROPion SR 150 MG TABCR PO SCH (22:20)
[2023-10-22] MEDS: FUROSEMIDE 40 MG/4 ML VIAL IV SCH (22:21)
[2023-10-23] MEDS: PIPERACILLIN/TAZOBACTAM 4.5 GM in DEXTROSE 5% MINI-B 100 ML IV SCH (04:56)
[2023-10-23 06:32] LABS: Basophils # (auto) 0.04 K/uL (0.00-0.20); Basophils % (auto) 0.5 %; Eosinophils # (auto) 0.13 K/uL (0.00-0.50); Eosinophils % (auto) 1.6 %; Hematocrit (blood only) 33.4 % (42.0-52.0); Hemoglobin 10.7 g/dl (14.0-18.0); Immature Granulocytes # (auto) 0.03 K/uL (0.01-0.20); Immature Granulocytes % (auto) 0.4 %; Lymphocytes # (auto) 1.02 K/uL (1.20-3.40); Lymphocytes % (auto) 12.6 %; Mean Corpuscular Hemoglobin 28.2 pg (25.0-34.0); Mean Corpuscular Volume 87.9 fL (80.0-100.0); Mean Platelet Volume 11.5 fL (9.4-12.4); Monocytes # (auto) 0.75 K/uL (0.11-0.59); Monocytes % (auto) 9.2 %; Neutrophils # (auto) 6.14 K/uL (1.40-6.50); Neutrophils % (auto) 75.7 %; Platelet Count 175 K/uL (130-400); RDW Coefficient of Variation 17.3 % (11.5-14.5); RDW Standard Deviation 55.1 fL (36.4-46.3); White Blood Count 8.11 K/ul (4.8-10.8)
[2023-10-23 06:57] LABS: Albumin Globulin Ratio 0.8 (0.9-2); Albumin Level 3.2 gm/dl (3.4-5.0); BUN Creatinine Ratio 17.4 (10-20); Bilirubin,Total 1.2 mg/dl (0.2-1.0); Calcium 8.4 mg/dl (8.6-10.3); Creatinine Clr Calc Pharmacy 27.4 ml/min; Est GFR (African American) 29.1 ml/min; Est GFR (Non-African American) 25.1 ml/min; Globulin 3.8 gm/dl (2.5-4.0); Magnesium 2.3 mg/dl (1.7-2.4); Potassium 3.8 mmol/L (3.5-5.1)
[2023-10-23 07:01] LABS: INR 1.1 (0.9-1.1); Prothrombin Time 11.5 Seconds (9.0-12.0)
--- NOTE | 2023-10-23 08:20 | Hospitalist Progress Note ---
Date of Service October 23, 2023 Assessment & Plan (1) Cellulitis: Plan: Admit to med/telemetry on pulse extremity. Was sent from the wound care clinic due to multiple issues including bilateral lower extremity cellulitis, multiple falls at home, and auditory hallucinations Patient with significant cellulitis of the bilateral lower extremities on exam along with edema Hx +cultures for enterobacter cloacae No leukocytosis, status post 1 dose of cefepime, will continue with Zosyn moving forward as cefepime could potentially worsen his hallucinations Wound care nurse consult placed Continue home Eliquis for DVT prophylaxis Heart healthy diet with 2 g sodium and 1800 fluid restriction AM CBC, CMP, mag, PT/INR 10/22 Continues Zosyn IV for suspected cellulitis, wound RN on consult. 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 Had been rx doxy but doesn't appear had taken On eliquis BID and reports having been compliant Wound RN consulted, tubigrips currently in place Lasix as outlined below 40mg IV BID CONTINUED given improvement on exam (increased last admission however patient only taking ONCE daily in the morning) Wt 94.3kg--> 92.9kg -net negative 3L/24hr. AHA/fluid restriction PT/OT consults and suspect not safe to care for himself at home presently Monitor labs/exam on repeat (2) Fluid overload: Plan: Acute on chronic HFrEF, POA * on lasix 40mg PO BID at home per med rec but appears this was just increased after hospitalization in August2023 * ECHO at that time LV systolic function mildly reduced, EF 40-45% Per discussion w/ patient -- Has NOT BEEN COMPLIANT WITH HIS LASIX AT HOME, ONLY TAKING ONCE DAILY AM. Compliance encouraged. On admission, BNP 1577 (1540 in August 2023) CXR w/ Cardiomegaly with mild congestive change and a trace right pleural effusion. Aguilar catheter placed s/p 40mg IV lasix in ER, placed on 40mg IV BID Monitor weights, I&Os Net negative 3L last 24hrs, Wts 94.3--> 92.9kg CHF ref placed for close f/u at dc given reduction in EF (3) Hallucinations: Plan: Patient reported recent auditory hallucinations of voices are arguing with him, confirms there is no one in his home when this happens. No focal neuro defects on exam, CT of the head and brain without contrast is negative for acute intracranial findings. Fall/aspiration precautions, bed alarm No reported hallucinations on exam today and will continue to monitor (4) Elevated troponin: Plan: Initial high-sensitivity troponin elevated 57, .1. Denies CP. Suspect demand ischemia in setting of acute on chronic CHF as well as possible infection. No acute ST segment/Twave changes noted on admission EKG. Continued tele monitoring (5) Falling: Plan: Frequent falling at home, CT head w/ scalp swelling/no acute process Suspect possible infection but also noncomplaince w/ diuretics and acute on chronic heart failure Lasix as above for diuresis, therapy evals Will check B12/TSH w/ AM labs for completeness Patient does not appear to be able to safely care for himself at this time as his hygiene is very poor, he appears disheveled on exam PT/OT/case management consults have been placed, will need to try and reach out to family to see what options we have moving forward, CM to follow (6) Coronary artery disease: Plan: Patient denies recent chest pain, no acute ECG changes Continue atorvastatin and Eliquis (7) Atrial fibrillation: Plan: has pacemaker, can interrogate to see if any episodes w/ falls at home Currently in a paced rhythm Continue Eliquis, amiodarone, and metoprolol (8) Stage 4 chronic kidney disease: Plan: Chronic kidney disease, stage 4 Cr slight elevation on admission, ?infection vs volume overload. Given 500cc w/ 40mg IV lasix on admission, lasix as outlined above home lisinopril on hold for now while diuresing and prevention of hypotension, renal dose meds/avoid nephrotoxins as able BMP in AM Plan continued inpatient stay on IV abx/diuretics therapy evals pending, CM to follow will touch base w/ family in AM however patient did report he doesn't like to bother them much and "does well". Suspect need for inpatient as unsafe to care for himself at this time. Admission and Anticipated Discharge Date Admission Date: October 22, 2023 Supervising Physician Co-Signing Physician Notes The patient was not seen by me. The chart was reviewed. Case discussed with DAR Brandon. Agree with assessment and plan Subjective Eval this afternoon, sitting in bed. Reports when asked about diuretic use that he takes it in the morning but not at night as he doesn't want to be up all night peeing. Lasix had been increased from 20mg PO BID to 40mg PO BID last admission in August and discussed if only taking once daily he's only taking what he should have been taking even before the increase and will continue current regimen. Leg edema similar, not having any pain but reports was sent for concerns for infection. Wrapped at wound care yesterday, not removed this morning but will ensure wound care following and examine on repeat but can hold off given reports feeling better. Denies SOB at present but was on admission. No chest pain or abdominal pain/nausea or fevers. Continued inpatient stay. Physical Exam Physical Exam: General: 82yo chronically ill appearing/disheveled and unkempt gentleman sitting up in recliner chair eating lunch, NAD HEENT: mild swelling above R eyebrow, pupils equal, dressing to posterior scalp intact Chest: pacemaker to LEFT chest Resp: diminished int he bases with faint exp wheeze, on room air 97% CV: RRR, +systolic murmur, b/l pitting edema, pulses diminished but cap refill wnl. 3+ pitting pedal GI: +BS,nontender : aguilar draining clear yellow urine MSK/Neuro: not confused and able to follow commands, nonfocal/no slurred speech b/l LE edema as noted, tubigrips in place, no significant warmth/pain Psych: alert to person/place/time, poor insight at times regarding medical care Results & Data Results & Data Vital Signs (Past 12 Hours) Vital Signs Temp Pulse Pulse Resp BP Pulse Ox Pulse Ox 10/23/23 07:49 75 10/23/23 07:36 36.6 C 75 20 102/63 97 10/23/23 03:34 36.8 C 75 18 105/69 93 10/22/23 23:11 36.4 C L 76 18 117/70 97 10/22/23 20:33 10/22/23 20:33 36.5 C 75 17 134/84 96 10/22/23 20:33 36.5 C 75 17 134/84 96 10/22/23 20:33 96 O2 Del Method O2 Del Method 10/23/23 07:49 10/23/23 07:36 Room Air 10/23/23 03:34 CPAP 10/22/23 23:11 Room Air 10/22/23 20:33 Room Air 10/22/23 20:33 Room Air 10/22/23 20:33 Room Air 10/22/23 20:33 Room Air Laboratory Results 10/23/23 10/23/23 10/23/23 Range/Units 12:35 06:16 06:14 WBC 8.11 (4.8-10.8) K/ul RBC 3.80 L (4.70-6.10) M/uL Hgb 10.7 L (14.0-18.0) g/dl Hct 33.4 L (42.0-52.0) % MCV 87.9 (80.0-100.0) fL MCH 28.2 (25.0-34.0) pg MCHC 32.0 (32.0-36.0) g/dL RDW Std Deviation 55.1 H (36.4-46.3) fL RDW Coeff of Yony 17.3 H (11.5-14.5) % Plt Count 175 (130-400) K/uL MPV 11.5 (9.4-12.4) fL Immature Gran % (Auto) 0.4 % Neut % (Auto) 75.7 % Lymph % (Auto) 12.6 % Schleicher % (Auto) 9.2 % Eos % (Auto) 1.6 % Baso % (Auto) 0.5 % Neut # (Auto) 6.14 (1.40-6.50) K/uL Lymph # (Auto) 1.02 L (1.20-3.40) K/uL Schleicher # (Auto) 0.75 H (0.11-0.59) K/uL Eos # (Auto) 0.13 (0.00-0.50) K/uL Baso # (Auto) 0.04 (0.00-0.20) K/uL Immature Gran # (Auto) 0.03 (0.01-0.20) K/uL PT 11.5 (9.0-12.0) Seconds INR 1.1 (0.9-1.1) Sodium 145 146 H (136-145) mmol/L Potassium 4.0 3.8 (3.5-5.1) mmol/L Chloride 107 106 (98-107) mmol/L Carbon Dioxide 30 34 H (21-32) mmol/L Anion Gap 8 6 (3-11) BUN 39 H 40 H (6-23) mg/dl Creatinine 2.26 H 2.30 H (0.6-1.4) mg/dl Est Cr Clr Drug Dosing 27.9 27.4 ml/min Est GFR ( Amer) 29.8 29.1 ml/min Est GFR (Non-Af Amer) 25.7 25.1 ml/min BUN/Creatinine Ratio 17.3 17.4 (10-20) Glucose 122 H 118 H (70-99(Fasting)) mg/dl Lactate (0.4-2.0) mmol/L Calcium 8.4 L 8.4 L (8.6-10.3) mg/dl Magnesium 2.3 (1.7-2.4) mg/dl Total Bilirubin 1.2 H (0.2-1.0) mg/dl Direct Bilirubin (0-0.2) mg/dl AST 39 (13-39) U/L ALT 30 (7-52) U/L Alkaline Phosphatase 152 H (34-104) U/L Troponin I High Sens (0-20) pg/ml B-Natriuretic Peptide (0-100) pg/ml Total Protein 7.0 (6.0-8.3) gm/dl Albumin 3.2 L (3.4-5.0) gm/dl Globulin 3.8 (2.5-4.0) gm/dl Albumin/Globulin Ratio 0.8 L (0.9-2) Procalcitonin (0-0.5) ng/ml Urine Color Urine Appearance (Clear) Urine pH (4.5-7.5) Ur Specific Star (1.000-1.030) Urine Protein (Negative) Urine Glucose (UA) (Negative) Urine Ketones (Negative) Urine Blood (Negative) Urine Nitrite (Negative) Urine Bilirubin (Negative) Urine Urobilinogen (Negative) Ur Leukocyte Esterase (Negative) Urine WBC (Auto) (0-5) /hpf Urine RBC (Auto) (0-2) /hpf U Hyaline Cast (Auto) (0-2) /lpf U Epithel Cells (Auto) (0-2) /hpf Urine Bacteria (Auto) (None Seen) 10/22/23 10/22/23 10/22/23 Range/Units 18:01 16:52 16:00 WBC (4.8-10.8) K/ul RBC (4.70-6.10) M/uL Hgb (14.0-18.0) g/dl Hct (42.0-52.0) % MCV (80.0-100.0) fL MCH (25.0-34.0) pg MCHC (32.0-36.0) g/dL RDW Std Deviation (36.4-46.3) fL RDW Coeff of Yony (11.5-14.5) % Plt Count (130-400) K/uL MPV (9.4-12.4) fL Immature Gran % (Auto) % Neut % (Auto) % Lymph % (Auto) % Schleicher % (Auto) % Eos % (Auto) % Baso % (Auto) % Neut # (Auto) (1.40-6.50) K/uL Lymph # (Auto) (1.20-3.40) K/uL Schleicher # (Auto) (0.11-0.59) K/uL Eos # (Auto) (0.00-0.50) K/uL Baso # (Auto) (0.00-0.20) K/uL Immature Gran # (Auto) (0.01-0.20) K/uL PT (9.0-12.0) Seconds INR (0.9-1.1) Sodium (136-145) mmol/L Potassium (3.5-5.1) mmol/L Chloride (98-107) mmol/L Carbon Dioxide (21-32) mmol/L Anion Gap (3-11) BUN (6-23) mg/dl Creatinine (0.6-1.4) mg/dl Est Cr Clr Drug Dosing ml/min Est GFR ( Amer) ml/min Est GFR (Non-Af Amer) ml/min BUN/Creatinine Ratio (10-20) Glucose (70-99(Fasting)) mg/dl Lactate 2.2 H* 2.4 H* (0.4-2.0) mmol/L Calcium (8.6-10.3) mg/dl Magnesium (1.7-2.4) mg/dl Total Bilirubin (0.2-1.0) mg/dl Direct Bilirubin (0-0.2) mg/dl AST (13-39) U/L ALT (7-52) U/L Alkaline Phosphatase (34-104) U/L Troponin I High Sens 56.1 H* (0-20) pg/ml B-Natriuretic Peptide 1577 H (0-100) pg/ml Total Protein (6.0-8.3) gm/dl Albumin (3.4-5.0) gm/dl Globulin (2.5-4.0) gm/dl Albumin/Globulin Ratio (0.9-2) Procalcitonin (0-0.5) ng/ml Urine Color Yellow Urine Appearance Clear (Clear) Urine pH 6.0 (4.5-7.5) Ur Specific Star 1.014 (1.000-1.030) Urine Protein Trace H (Negative) Urine Glucose (UA) Negative (Negative) Urine Ketones Negative (Negative) Urine Blood Negative (Negative) Urine Nitrite Negative (Negative) Urine Bilirubin Negative (Negative) Urine Urobilinogen Negative (Negative) Ur Leukocyte Esterase Negative (Negative) Urine WBC (Auto) 0-5 (0-5) /hpf Urine RBC (Auto) 0-2 (0-2) /hpf U Hyaline Cast (Auto) 3-5 H (0-2) /lpf U Epithel Cells (Auto) 0-2 (0-2) /hpf Urine Bacteria (Auto) None Seen (None Seen) 10/22/23 Range/Units 15:28 WBC 7.09 (4.8-10.8) K/ul RBC 3.63 L (4.70-6.10) M/uL Hgb 10.5 L (14.0-18.0) g/dl Hct 32.2 L (42.0-52.0) % MCV 88.7 (80.0-100.0) fL MCH 28.9 (25.0-34.0) pg MCHC 32.6 (32.0-36.0) g/dL RDW Std Deviation 55.1 H (36.4-46.3) fL RDW Coeff of Yony 17.2 H (11.5-14.5) % Plt Count 174 (130-400) K/uL MPV 12.5 H (9.4-12.4) fL Immature Gran % (Auto) 0.3 % Neut % (Auto) 76.5 % Lymph % (Auto) 10.6 % Schleicher % (Auto) 11.7 % Eos % (Auto) 0.3 % Baso % (Auto) 0.6 % Neut # (Auto) 5.43 (1.40-6.50) K/uL Lymph # (Auto) 0.75 L (1.20-3.40) K/uL Schleicher # (Auto) 0.83 H (0.11-0.59) K/uL Eos # (Auto) 0.02 (0.00-0.50) K/uL Baso # (Auto) 0.04 (0.00-0.20) K/uL Immature Gran # (Auto) 0.02 (0.01-0.20) K/uL PT (9.0-12.0) Seconds INR (0.9-1.1) Sodium 144 (136-145) mmol/L Potassium 4.1 (3.5-5.1) mmol/L Chloride 107 (98-107) mmol/L Carbon Dioxide 28 (21-32) mmol/L Anion Gap 9 (3-11) BUN 43 H (6-23) mg/dl Creatinine 2.27 H (0.6-1.4) mg/dl Est Cr Clr Drug Dosing 28.0 ml/min Est GFR ( Amer) 29.6 ml/min Est GFR (Non-Af Amer) 25.5 ml/min BUN/Creatinine Ratio 18.9 (10-20) Glucose 104 H (70-99(Fasting)) mg/dl Lactate (0.4-2.0) mmol/L Calcium 8.8 (8.6-10.3) mg/dl Magnesium 2.5 H (1.7-2.4) mg/dl Total Bilirubin 1.4 H (0.2-1.0) mg/dl Direct Bilirubin 0.5 H (0-0.2) mg/dl AST 47 H (13-39) U/L ALT 32 (7-52) U/L Alkaline Phosphatase 168 H (34-104) U/L Troponin I High Sens 57.9 H* (0-20) pg/ml B-Natriuretic Peptide (0-100) pg/ml Total Protein 7.5 (6.0-8.3) gm/dl Albumin 3.6 (3.4-5.0) gm/dl Globulin (2.5-4.0) gm/dl Albumin/Globulin Ratio (0.9-2) Procalcitonin 0.14 (0-0.5) ng/ml Urine Color Urine Appearance (Clear) Urine pH (4.5-7.5) Ur Specific Star (1.000-1.030) Urine Protein (Negative) Urine Glucose (UA) (Negative) Urine Ketones (Negative) Urine Blood (Negative) Urine Nitrite (Negative) Urine Bilirubin (Negative) Urine Urobilinogen (Negative) Ur Leukocyte Esterase (Negative) Urine WBC (Auto) (0-5) /hpf Urine RBC (Auto) (0-2) /hpf U Hyaline Cast (Auto) (0-2) /lpf U Epithel Cells (Auto) (0-2) /hpf Urine Bacteria (Auto) (None Seen) Diagnostic Findings Chest X-Ray 10/22/23 14:58 XR chest 1V portable HISTORY: Sepsis COMPARISON: Chest 08/14/2023. FINDINGS: Slightly rotated study. No pneumothorax. The heart remains enlarged. There are poststernotomy changes, left-sided pacemaker/defibrillator, and a cardiac valve prosthesis again noted. There is mild central pulmonary vascular congestion without overt edema. Trace right pleural effusions is again noted. There are old, healed left-sided rib fractures. A few bibasilar linear densities favor subsegmental atelectasis. No new focal lung consolidations to suggest a pneumonia. IMPRESSION: Cardiomegaly with mild congestive change and a trace right pleural effusion. This is similar to the prior study. ACT 112: Negative or not required by law. Electronically signed by: Mendoza Uriostegui M.D. 10/22/2023 3:[address] 10/22/23 15:[address] DOSE: 953.61 mGy.cm HISTORY: falling, trauma TECHNIQUE: Multiaxial CT images of the head were performed without the use of intravenous contrast. Automated exposure control was utilized for this study. A dose lowering technique was utilized adhering to the principles of ALARA. Comparison: Head CT 09/02/2023. Findings: The paranasal sinuses and mastoid air cells are clear. The calvarium and skull base are intact. The ventricles and sulci are within normal limits. There is no mass, hematoma, midline shift, or acute infarct. Mild left periorbital soft tissue swelling. Impression: No acute intracranial abnormality. Mild left periorbital soft tissue swelling. ACT 112: Negative or not required by law. Electronically signed by: Mendoza Uriostegui M.D. 10/22/2023 4:18 PM PG Care Time/CCT Total # of Minutes Spent Total Time Spent with Patient: Total time spent is greater than 50% in coordination of care (as documented) at patient's floor/unit and/or counseling patient: Coding Level of Care Code 00054 SUB INP/OBS CARE 50MIN Diagnoses Cellulitis L03.119 Laterality: unspecified laterality Site of cellulitis: extremity Site of cellulitis of extremity: lower extremity Fluid overload E87.70 Hypervolemia type: unspecified Hallucinations R44.3 Elevated troponin R77.8 Falling R29.6 Coronary artery disease involving [place] coronary artery of [place] heart without angina pectoris I25.10 Associated angina: without angina Coronary Disease-Associated Artery/Lesion type: [place] artery [place] vs. transplanted heart: [place] heart Longstanding persistent atrial fibrillation I48.11 Atrial fibrillation type: longstanding persistent Stage 4 chronic kidney disease N18.4 (1) Cellulitis Laterality: unspecified laterality Site of cellulitis: extremity Site of cellulitis of extremity: lower extremity Qualified Code(s): L03.119 - Cellulitis of unspecified part of limb (2) Fluid overload Hypervolemia type: unspecified Qualified Code(s): E87.70 - Fluid overload, unspecified (6) Coronary artery disease Associated angina: without angina Coronary Disease-Associated Artery/Lesion type: [place] artery [place] vs. transplanted heart: [place] heart Qualified Code(s): I25.10 - Atherosclerotic heart disease of [place] coronary artery without angina pectoris (7) Atrial fibrillation Atrial fibrillation type: longstanding persistent Qualified Code(s): I48.11 - Longstanding persistent atrial fibrillation
[2023-10-23] MEDS: EMPAGLIFLOZIN 10 MG TAB PO SCH (09:07)
[2023-10-23] MEDS: AMIODARONE 200 MG TAB PO SCH (09:07)
[2023-10-23] MEDS: FOLIC ACID 400 MCG TAB PO SCH (09:07)
[2023-10-23] MEDS: METOPROLOL SUCC 50MG EXT REL TAB PO SCH (09:08)
[2023-10-23] MEDS: PANTOprazole 40 MG TAB PO SCH (09:08)
[2023-10-23] MEDS: LEVOTHYROXINE SODIUM 50 MCG TABLET PO SCH (09:08)
[2023-10-23 13:15] LABS: BUN Creatinine Ratio 17.3 (10-20); Calcium 8.4 mg/dl (8.6-10.3); Creatinine Clr Calc Pharmacy 27.9 ml/min; Est GFR (African American) 29.8 ml/min; Est GFR (Non-African American) 25.7 ml/min
[2023-10-24 06:25] LABS: Basophils # (auto) 0.03 K/uL (0.00-0.20); Basophils % (auto) 0.5 %; Eosinophils # (auto) 0.15 K/uL (0.00-0.50); Eosinophils % (auto) 2.5 %; Hematocrit (blood only) 30.6 % (42.0-52.0); Hemoglobin 10.1 g/dl (14.0-18.0); Immature Granulocytes # (auto) 0.02 K/uL (0.01-0.20); Immature Granulocytes % (auto) 0.3 %; Lymphocytes # (auto) 1.08 K/uL (1.20-3.40); Lymphocytes % (auto) 18.3 %; Mean Corpuscular Hemoglobin 29.2 pg (25.0-34.0); Mean Corpuscular Volume 88.4 fL (80.0-100.0); Mean Platelet Volume 12.4 fL (9.4-12.4); Monocytes % (auto) 10.2 %; Neutrophils # (auto) 4.01 K/uL (1.40-6.50); Neutrophils % (auto) 68.2 %; Platelet Count 169 K/uL (130-400); RDW Coefficient of Variation 17.1 % (11.5-14.5); RDW Standard Deviation 54.6 fL (36.4-46.3); Red Blood Count 3.46 M/uL (4.70-6.10); White Blood Count 5.89 K/ul (4.8-10.8)
[2023-10-24 06:45] LABS: Albumin Globulin Ratio 0.9 (0.9-2); Albumin Level 2.9 gm/dl (3.4-5.0); BUN Creatinine Ratio 15.8 (10-20); Bilirubin,Total 0.8 mg/dl (0.2-1.0); Calcium 7.9 mg/dl (8.6-10.3); Creatinine Clr Calc Pharmacy 24.9 ml/min; Est GFR (Non-African American) 22.4 ml/min; Globulin 3.3 gm/dl (2.5-4.0); Magnesium 2.2 mg/dl (1.7-2.4); Potassium 3.7 mmol/L (3.5-5.1); Total Protein 6.2 gm/dl (6.0-8.3)
[2023-10-24 07:00] LABS: Thyroid Stimulating Hormone 1.009 uIu/ml (0.300-4.500)
--- NOTE | 2023-10-24 08:33 | Hospitalist Progress Note ---
Date of Service October 24, 2023 Assessment & Plan (1) Cellulitis: Plan: Was sent from the wound care clinic due to multiple issues including bilateral lower extremity cellulitis, multiple falls at home, and auditory hallucinations. 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 Had been rx doxy but doesn't appear had taken On eliquis BID and reports having been compliant Wound RN consulted, tubigrips currently in place Lasix as outlined below 40mg IV BID CONTINUED given improvement on exam (increased last admission however patient only taking ONCE daily in the morning) Wt 94.3kg--> 92.9kg/ net negative 3L/24hr. AHA/fluid restriction PT/OT consults and suspect not safe to care for himself at home presently Monitor labs/exam on repeat 10/23 WBC wnl, afebrile. Blood cultures NGTD. Remains on Zosyn IV, wound RN consulted Lasix continued 40mg IV BID, -BUN/Cr bumped a little but continues to make urine, clear yellow in color. TB back to normal, ALP 152--> 132 and suspect 2nd to hepatic congestion from volume overload - Consideration to switch to bumex vs torsemide to see about better compliance. Do suspect higher needs w/ his CKD IV> Monitor for need to reach out to nephrology Wt 94.6kg on admit--> 92.9kg --> 92.8kg. 2.6L + 2.1L daily outputs for net negative 4.7L B12 borderline 287, replacement ordered PT/OT consulted as suspect not safe at home. Patient reports he was just in rehab but not very helpful but will monitor repeat exams to see if making improvement/able to accomodate. Did encourage possible stay [facility] if agreeable. Family able to help take care of animals at present time per Kermit. (2) Fluid overload: Plan: Acute on chronic HFrEF, POA * on lasix 40mg PO BID at home per med rec but appears this was just increased after hospitalization in August2023 * ECHO at that time LV systolic function mildly reduced, EF 40-45% Per discussion w/ patient -- Has NOT BEEN COMPLIANT WITH HIS LASIX AT HOME, ONLY TAKING ONCE DAILY AM. Compliance encouraged. BNP 1577, CXR w/ mild congestive changes and trace R pleural effusion s/p aguilar in ER w/ 40mg IV lasix IMPROVING Continue 40mg IV BID for today, monitor to change to PO vs torsemide/bumex as above Net negative 4.7L Continue daily weights, I&Os Low sodium diet/fluid restriction CHF ref placed for close f/u at dc given reduction in EF -- however does follow [facility] and will need [facility] f[facility]u (3) Hallucinations: Plan: Reported recent auditory hallucinations of voices are arguing with him, confirms there is no one in his home when this happens. No focal neuro defects on exam CT of the head and brain without contrast is negative for acute intracranial findings. Fall/aspiration precautions, bed alarm No reported hallucinations on exam today and will continue to monitor> b12 replacement as above (4) Elevated troponin: Plan: Initial high-sensitivity troponin elevated 57, .1. Denies CP. Suspect demand ischemia in setting of acute on chronic CHF as well as possible infection. No acute ST segment/Twave changes noted on admission EKG. Continued tele monitoring without issue, has been PACED (5) Falling: Plan: Frequent falling at home, CT head w/ scalp swelling/no acute process Suspect possible infection but also noncomplaince w/ diuretics and acute on chronic heart failure Lasix as above for diuresis, therapy evals B12/TSH w/ AM labs for completeness -- B12 low normal/replacement ordered. TSH wnl Patient does not appear to be able to safely care for himself at this time as his hygiene is very poor, he appears disheveled on exam however he is hopeful for home PT/OT/case management consults have been placed, will need to try and reach out to family to see what options we have moving forward, CM to follow (6) Coronary artery disease: Plan: Patient denies recent chest pain, no acute ECG changes Continue atorvastatin and Eliquis (7) Atrial fibrillation: Plan: has pacemaker, can interrogate to see if any episodes w/ falls at home Currently in a paced rhythm Continue Eliquis, amiodarone, and metoprolol (8) Stage 4 chronic kidney disease: Plan: Chronic kidney disease, stage 4 Cr slight elevation on admission, ?infection vs volume overload. Given 500cc w/ 40mg IV lasix on admission, lasix as outlined above home lisinopril on hold for now while diuresing and prevention of hypotension or worsening kidney function but may be able to resume to help w/ CHF as above renal dose meds/avoid nephrotoxins as able consider nephro consult if needed BMP in AM Plan continued inpatient stay on IV abx/diuresis therapy eval to continue to see if improving to be able to return home w/ HHPT as wished vs needing inpatient rehab (recommended and encouraged) Admission and Anticipated Discharge Date Admission Date: October 22, 2023 Supervising Physician Co-Signing Physician Notes The patient was not seen by me. The chart was reviewed. Case discussed with DAR Brandon. Agree with assessment and plan Subjective Evaluated this morning, resting in bed. Feeling better. Aguilar draining clear yellow urine. Continues diuretics. Discussed possible switch from lasix to bumex for once daily diuretics given he doesn't like to take at night. Legs without pain, remains on antibiotics. Discussed rehab, he said he was somewhere ~10 days and didn't have much improvement but not sure about going again as he has things to do at home. Discussed monitoring continued therapy evals inpatient. Mood stable. Questions/concerns addressed at this time. Physical Exam Physical Exam: General: 82yo chronically ill appearing/disheveled and unkempt gentleman resting in bed upon entry, NAD, making jokes HEENT: mild swelling above R eyebrow, pupils equal, dressing to posterior scalp intact Chest: pacemaker to LEFT chest Resp: diminished in the bases, no w/c, on room air 97% CV: RRR, +systolic murmur, b/l pitting edema IMPROVING, tupigrip in place, pulses diminished but cap refill wnl. 2+ pitting pedal GI: +BS,nontender : aguilar draining clear yellow urine MSK/Neuro: not confused and able to follow commands, nonfocal/no slurred speech b/l LE edema as noted, tubigrips in place, no significant warmth/pain chronic LUE lymphedema/compression in place Psych: alert to person/place/time, poor insight at times regarding medical care Results & Data Results & Data Vital Signs (Past 12 Hours) Vital Signs Temp Pulse Pulse Resp BP Pulse Ox O2 Del Method 10/24/23 07:19 75 10/24/23 03:26 36.6 C 76 18 106/65 95 Room Air 10/23/23 23:42 Room Air 10/23/23 23:33 75 10/23/23 23:25 36.4 C L 82 18 98 Room Air Laboratory Results 10/24/23 10/23/23 Range/Units 05:47 12:35 WBC 5.89 (4.8-10.8) K/ul RBC 3.46 L (4.70-6.10) M/uL Hgb 10.1 L (14.0-18.0) g/dl Hct 30.6 L (42.0-52.0) % MCV 88.4 (80.0-100.0) fL MCH 29.2 (25.0-34.0) pg MCHC 33.0 (32.0-36.0) g/dL RDW Std Deviation 54.6 H (36.4-46.3) fL RDW Coeff of Yony 17.1 H (11.5-14.5) % Plt Count 169 (130-400) K/uL MPV 12.4 (9.4-12.4) fL Immature Gran % (Auto) 0.3 % Neut % (Auto) 68.2 % Lymph % (Auto) 18.3 % Williams % (Auto) 10.2 % Eos % (Auto) 2.5 % Baso % (Auto) 0.5 % Neut # (Auto) 4.01 (1.40-6.50) K/uL Lymph # (Auto) 1.08 L (1.20-3.40) K/uL Williams # (Auto) 0.60 H (0.11-0.59) K/uL Eos # (Auto) 0.15 (0.00-0.50) K/uL Baso # (Auto) 0.03 (0.00-0.20) K/uL Immature Gran # (Auto) 0.02 (0.01-0.20) K/uL Sodium 144 145 (136-145) mmol/L Potassium 3.7 4.0 (3.5-5.1) mmol/L Chloride 104 107 (98-107) mmol/L Carbon Dioxide 34 H 30 (21-32) mmol/L Anion Gap 6 8 (3-11) BUN 40 H 39 H (6-23) mg/dl Creatinine 2.53 H 2.26 H (0.6-1.4) mg/dl Est Cr Clr Drug Dosing 24.9 27.9 ml/min Est GFR ( Amer) 26.0 29.8 ml/min Est GFR (Non-Af Amer) 22.4 25.7 ml/min BUN/Creatinine Ratio 15.8 17.3 (10-20) Glucose 104 H 122 H (70-99(Fasting)) mg/dl Calcium 7.9 L 8.4 L (8.6-10.3) mg/dl Magnesium 2.2 (1.7-2.4) mg/dl Total Bilirubin 0.8 (0.2-1.0) mg/dl AST 29 (13-39) U/L ALT 24 (7-52) U/L Alkaline Phosphatase 132 H (34-104) U/L Total Protein 6.2 (6.0-8.3) gm/dl Albumin 2.9 L (3.4-5.0) gm/dl Globulin 3.3 (2.5-4.0) gm/dl Albumin/Globulin Ratio 0.9 (0.9-2) Vitamin B12 287 (180-914) pg/ml TSH 1.009 (0.300-4.500) uIu/ml Lyme Disease Screen Negative (Negative) PG Care Time/CCT Total # of Minutes Spent Total Time Spent with Patient: Total time spent is greater than 50% in coordination of care (as documented) at patient's floor/unit and/or counseling patient: Coding Level of Care Code 99628 SUB INP/OBS CARE 3/50MIN Diagnoses Cellulitis L03.119 Laterality: unspecified laterality Site of cellulitis: extremity Site of cellulitis of extremity: lower extremity Fluid overload E87.70 Hypervolemia type: unspecified Hallucinations R44.3 Elevated troponin R77.8 Falling R29.6 Coronary artery disease involving [place] coronary artery of [place] heart without angina pectoris I25.10 Associated angina: without angina Coronary Disease-Associated Artery/Lesion type: [place] artery [place] vs. transplanted heart: [place] heart Longstanding persistent atrial fibrillation I48.11 Atrial fibrillation type: longstanding persistent Stage 4 chronic kidney disease N18.4 (1) Cellulitis Laterality: unspecified laterality Site of cellulitis: extremity Site of cellulitis of extremity: lower extremity Qualified Code(s): L03.119 - Cellulitis of unspecified part of limb (2) Fluid overload Hypervolemia type: unspecified Qualified Code(s): E87.70 - Fluid overload, unspecified (6) Coronary artery disease Associated angina: without angina Coronary Disease-Associated Artery/Lesion type: [place] artery [place] vs. transplanted heart: [place] heart Qualified Code(s): I25.10 - Atherosclerotic heart disease of [place] coronary artery without angina pectoris (7) Atrial fibrillation Atrial fibrillation type: longstanding persistent Qualified Code(s): I48.11 - Longstanding persistent atrial fibrillation
[2023-10-24] MEDS: CYANOCOBALAMIN (B-12) 500 MCG TABLET PO SCH (10:20)
[2023-10-25 07:52] LABS: Albumin Globulin Ratio 0.9 (0.9-2); Albumin Level 2.8 gm/dl (3.4-5.0); BUN Creatinine Ratio 17.7 (10-20); Bilirubin,Total 0.7 mg/dl (0.2-1.0); Calcium 7.5 mg/dl (8.6-10.3); Creatinine Clr Calc Pharmacy 25.6 ml/min; Est GFR (African American) 27.3 ml/min; Est GFR (Non-African American) 23.5 ml/min; Globulin 3.1 gm/dl (2.5-4.0); Potassium 3.6 mmol/L (3.5-5.1); Total Protein 5.9 gm/dl (6.0-8.3)
--- NOTE | 2023-10-25 08:04 | Hospitalist Progress Note ---
Date of Service October 25, 2023 Assessment & Plan (1) Acute on chronic combined systolic (congestive) and diastolic (congestive) heart failure: Plan: Was sent from the wound care clinic due to multiple issues including bilateral lower extremity cellulitis, multiple falls at home, and auditory hallucinations. Hx Enterobacter cloacae. Acute on chronic HFrEF, POA Suspect main contributor to his increased LE edema w/ med noncompliance at home in light of recently increased lasix to 40mg BID as above last inpatient stay. ECHO at that time LV systolic function mildly reduced, EF 40-45% Zosyn given for suspected cellulitis but has been discontinued for now/monitoring. Had been continued on Zosyn IV for suspected cellulitis however now WBC elevation and not overly tender/warm on exam and suspect from volume overload however had been sent by wound clinic for concerns of such and had been continued through today (10/24) however suspect more from volume overload and will discontinue as blood cultures remain NGTD, no fever/WBC elevation and preventing worsening kidney function in patient w/ CKD IV Patient endorses NOT complaint w/ his lasix at home and takes ONCE daily (when he remembers, does have pill packs to help) --> had lasix increased from 20mg PO BID to 40mg BID during August hospitalization and suspect needing increasing dosing with his CKD for effectiveness, but also improvement in compliance Placed on lasix 40mg IV BID which was continued through last evening 10/23 SWITCHING TO BUMEX 2mg DAILY AM 10/24 to see if able to utilize once daily for compliance but monitoring output w/ switch to see if needing increased/BID dosing (hopefully avoid BID as he doesn't want to get up to pee at night) Monitor I&Os, weights -Weight 92.8-->90.7kg -Net negative 7.1L -TB wnl, alp trending down, 132--> 120 -BUN/Cr 43/2.43 AHA diet, fluid restriction Aguilar in place- continues clear yellow urine, renal function staying stable with continued diuresis again discontinuing Zosyn for now (wound RN consult placed) and monitor for any worsening cellulitis but would avoid for now Consult to [facility] to assist given appears it has been a while since he's been seen and likely benefit CHF clinic outpatient PT/OT consulted and recs for rehab however patient hesistant for such at this time and will need ongoing discussions as suspect needing such for safety at h ome Monitor labs/exam in AM (2) Fluid overload: Plan: as above, improving w/ diuretics monitor (3) Cellulitis: Plan: Sent by wound clinic for concerns of such increased LE edema/etc Hx bilateral GSV ablation with Dr Kendall earlier this year. s/p Cefepime in ER -- continued on Zosyn to avoid hallucinations Given no WBC elevation/blood cultures neg and no warmth/pain on exam, doubt cellulitis and will DISCONTINUE ZOsyn for now Wound RN consult placed, continue elevation (4) Hallucinations: Plan: Reported recent auditory hallucinations of voices are arguing with him, confirms there is no one in his home when this happens. He does have stressors w/ parents will/house for niece etc and needing legal assistnace reported No focal neuro defects on exam CT of the head and brain without contrast is negative for acute intracranial findings. Fall/aspiration precautions, bed alarm No reported hallucinations on exam today and will continue to monitor> b12 replacement as outlined (5) Elevated troponin: Plan: Initial high-sensitivity troponin elevated 57, [id number]. Denies CP. Suspect demand ischemia in setting of acute on chronic CHF as well as possible infection. No acute ST segment/Twave changes noted on admission EKG. Continued tele monitoring without issue, has been PACED cards consulted as above (6) Falling: Plan: Frequent falling at home, CT head w/ scalp swelling/no acute process Suspect possible infection but also noncomplaince w/ diuretics and acute on chronic heart failure Lasix as above for diuresis, therapy evals B12/TSH w/ AM labs for completeness -- B12 low normal/replacement ordered. TSH wnl Patient does not appear to be able to safely care for himself at this time as his hygiene is very poor, he appears disheveled on exam however he is hopeful for home PT/OT/case management consults have been placed, will need to try and reach out to family to see what options we have moving forward, CM to follow (7) Coronary artery disease: Plan: Patient denies recent chest pain, no acute ECG changes Continue atorvastatin and Eliquis (8) Atrial fibrillation: Plan: has pacemaker, can interrogate to see if any episodes w/ falls at home Currently in a paced rhythm Continue Eliquis, amiodarone, and metoprolol keep mag/k replete (9) Stage 4 chronic kidney disease: Plan: Chronic kidney disease, stage 4 Cr slight elevation on admission, ?infection vs volume overload. Given 500cc w/ 40mg IV lasix on admission, lasix as outlined above home lisinopril on hold for now while diuresing and prevention of hypotension or worsening kidney function but may be able to resume to help w/ CHF as above renal dose meds/avoid nephrotoxins as able consider nephro consult if needed, likely need at dc regardless BMP in AM (10) B12 deficiency: Plan: low normal 287, PO replacement started and can continue at dc (11) S/P AVR (aortic valve replacement): Plan: noted Plan continued inpatient stay dc zosyn, monitor for any worsening continue diuretics, switching to bumex appreciate cards consult/assistance, will need chf f/u therapy evals rec rehab at present time, will continue to monitor repeat therapy evals tomorrow but at present time unable to care for himself and will need to show improvement. continued discussions Admission and Anticipated Discharge Date Admission Date: October 22, 2023 Supervising Physician Co-Signing Physician Notes The patient was not seen by me. The chart was reviewed. Case discussed with DAR Brandon. Agree with assessment and plan Subjective Evaluated this morning, getting back into bed. Needing some assistance w/ legs due to weight/edema and discussed therapy recs which he is hopeful to avoid inpatient rehab but discussed will need to see ongoing evals w/ improvement to be able to go home for safety reasons. Aguilar w/ continued clear yellow urine, renal function stable. Did report was seen by someone from cards this morning given he follows w/ [facility] at baseline but hasn't seen in a while. Discussed switch to Bumex and will monitor urine output through the morning/consider BID but possibly increased once daily to improve compliance. Questions/concerns addressed at this time. Physical Exam Physical Exam: General: 82yo chronically ill appearing/disheveled and unkempt gentleman trying to get back into bed upon entry, NAD HEENT: swelling above R eyebrow, pupils equal, dressing to posterior scalp intact Chest: pacemaker to LEFT chest Resp: diminished in the bases, no w/c, on room air 97% CV: RRR, +systolic murmur, b/l pitting edema IMPROVING, tupigrip in place, pulses diminished but cap refill wnl. 2+ pitting pedal (DECREASED) GI: +BS,nontender : aguilar draining clear yellow urine MSK/Neuro: not confused and able to follow commands, nonfocal/no slurred speech b/l LE edema as noted, tubigrips in place (removed and + redness but no warmth/pain) chronic LUE lymphedema/compression in place Psych: alert to person/place/time, poor insight at times regarding medical care Results & Data Results & Data Vital Signs (Past 12 Hours) Vital Signs Temp Pulse Pulse Resp BP Pulse Ox O2 Del Method 10/25/23 07:50 36.7 C 82 18 108/74 93 Room Air 10/25/23 02:56 36.7 C 74 18 110/63 93 Room Air 10/24/23 23:37 75 10/24/23 22:38 36.8 C 75 18 114/73 94 Room Air 10/24/23 22:37 Room Air Laboratory Results 10/25/23 Range/Units 06:29 Sodium 142 (136-145) mmol/L Potassium 3.6 (3.5-5.1) mmol/L Chloride 102 (98-107) mmol/L Carbon Dioxide 33 H (21-32) mmol/L Anion Gap 7 (3-11) BUN 43 H (6-23) mg/dl Creatinine 2.43 H (0.6-1.4) mg/dl Est Cr Clr Drug Dosing 25.6 ml/min Est GFR ( Amer) 27.3 ml/min Est GFR (Non-Af Amer) 23.5 ml/min BUN/Creatinine Ratio 17.7 (10-20) Glucose 89 (70-99(Fasting)) mg/dl Calcium 7.5 L (8.6-10.3) mg/dl Magnesium 2.0 (1.7-2.4) mg/dl Total Bilirubin 0.7 (0.2-1.0) mg/dl AST 23 (13-39) U/L ALT 20 (7-52) U/L Alkaline Phosphatase 120 H (34-104) U/L Total Protein 5.9 L (6.0-8.3) gm/dl Albumin 2.8 L (3.4-5.0) gm/dl Globulin 3.1 (2.5-4.0) gm/dl Albumin/Globulin Ratio 0.9 (0.9-2) PG Care Time/CCT Total # of Minutes Spent Total Time Spent with Patient: Total time spent is greater than 50% in coordination of care (as documented) at patient's floor/unit and/or counseling patient: Coding Level of Care Code 99972 SUB INP/OBS CARE 3/50MIN Diagnoses Acute on chronic combined systolic (congestive) and diastolic (congestive) heart failure I50.43 Fluid overload E87.70 Hypervolemia type: unspecified Cellulitis L03.119 Laterality: unspecified laterality Site of cellulitis: extremity Site of cellulitis of extremity: lower extremity Hallucinations R44.3 Elevated troponin R77.8 Falling R29.6 Coronary artery disease involving [place] coronary artery of [place] heart without angina pectoris I25.10 Associated angina: without angina Coronary Disease-Associated Artery/Lesion type: [place] artery [place] vs. transplanted heart: [place] heart Longstanding persistent atrial fibrillation I48.11 Atrial fibrillation type: longstanding persistent Stage 4 chronic kidney disease N18.4 B12 deficiency E53.8 S/P AVR (aortic valve replacement) Z95.2 (2) Fluid overload Hypervolemia type: unspecified Qualified Code(s): E87.70 - Fluid overload, unspecified (3) Cellulitis Laterality: unspecified laterality Site of cellulitis: extremity Site of cellulitis of extremity: lower extremity Qualified Code(s): L03.119 - Cellulitis of unspecified part of limb (7) Coronary artery disease Associated angina: without angina Coronary Disease-Associated Artery/Lesion type: [place] artery [place] vs. transplanted heart: [place] heart Qualified Code(s): I25.10 - Atherosclerotic heart disease of [place] coronary artery without angina pectoris (8) Atrial fibrillation Atrial fibrillation type: longstanding persistent Qualified Code(s): I48.11 - Longstanding persistent atrial fibrillation
[2023-10-25] MEDS: BUMETANIDE 1 MG TAB PO SCH (08:17)
--- NOTE | 2023-10-25 11:02 | Cardiology Consultation ---
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 - Hypervolemic on exam today, likely due to medication noncompliance - responded well to IV diuresis, transitioning to PO diuretics - Continue bumex 2 mg daily - Strict I/Os, daily weight, 2L fluid restriction and 2gm sodium restriction - Continue amiodarone, apixaban, atorvastatin, Jardiance, metoprolol succinate - likely would benefit from assistance whether at home or at facility for help with medication compliance - close follow up with outpatient [facility] cardiology after discharge Case discussed with supervising physician, further recommendations per Dr. Barnhart. I spent a total of 35 minutes on the date of service in preparation, delivery, and documentation of the care provided to this patient excluding any time spent in the performance of separately billed services. This visit was a split-shared visit with the substantial portion of the decision making performed by the supervising boat and plant utility supervisor/billing provider. Supervising Physician Co-Signing Physician Notes I have personally performed a history and physical examination on the patient. I have reviewed the advance practitioner's documentation, and I agree with, and take responsibility for the plan of care. I spent a total of 40 minutes on the date of service in preparation, delivery, and documentation of the care provided to this patient, excluding any time spent in the performance of separately billed services. 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 He states for the past couple of weeks he has had worsening edema and shortness of breath. Has pill packs but sometimes forgets to take his pills. Troponin mildly elevated, but flat. BNP elevated. On exam today, he states he is feeling better. Thinks edema is improving. Denies chest pain, shortness of breath, lightheadedness. Follows with [facility] outpatient cardiology clinic. States he lives home alone, has a friend who stops over to help. Family near by, but do not stop over often. Allergies Allergy/AdvReac Type Severity Reaction Status Date / Time No Known Allergies Allergy Verified 10/22/23 17:20 Home Medications Medication Instructions Recorded Confirmed Type lisinopril 20 mg tablet 10 mg (1/2 x 20 mg) PO DAILY #180 11/05/22 10/22/23 Rx tabs omeprazole 20 mg capsule,delayed 20 mg PO DAILY #90 caps 01/28/23 10/22/23 Rx release metoprolol succinate 50 mg capsule 50 mg PO DAILY 06/17/23 10/22/23 History sprinkle, ext. release 24 hr Left Upper Extremity Compression #1 ea 07/03/23 09/28/23 Rx Sleeve apixaban 2.5 mg tablet (Eliquis) 2.5 mg PO AMHS 08/14/23 10/22/23 History atorvastatin 80 mg tablet 80 mg PO HS #90 tabs 09/15/23 10/22/23 Rx bupropion HCl 150 mg tablet,12 hr 150 mg PO BID #180 ea 09/15/23 10/22/23 Rx sustained-release levothyroxine 50 mcg tablet 50 mcg PO DAILY #90 tabs 09/15/23 10/22/23 Rx (Synthroid) amiodarone 200 mg tablet 400 mg (2 x 200 mg) PO QAM #180 09/16/23 10/22/23 Rx tabs empagliflozin 10 mg tablet 10 mg PO DAILY #90 tabs 09/24/23 10/22/23 Rx (Jardiance) folic acid 800 mcg tablet 800 mcg PO QAM #90 tabs 10/14/23 10/22/23 Rx galantamine 8 mg 24 hr 8 mg PO QAM #30 caps 10/14/23 10/22/23 Rx capsule,extended release furosemide 40 mg tablet 40 mg PO BID #60 tabs 10/19/23 10/22/23 Rx doxycycline hyclate 100 mg capsule 0 mg PO BID 10/22/23 10/22/23 History Patient History Medical History Acute on chronic HFrEF (heart failure with reduced ejection fraction) CKD (chronic kidney disease) Atrial fibrillation Acid reflux disease Hypothyroidism Ventricular tachyarrhythmia Subclavian vein obstruction PAF (paroxysmal atrial fibrillation) Dyslipidemia, goal LDL below 70 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 COVID-19 Ventricular tachycardia Thrombocytopenia New onset atrial fibrillation Encounter for pre-operative examination Left bundle branch block Acute pancreatitis Prostate cancer PVC (premature ventricular contraction) Hyperthyroidism Hypertension Hyperhomocystinemia History of snuff use Former smoker Difficulty reading due to visual problem Cervical radiculopathy 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, 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, clinical stage TIc Status post biopsies, biopsy stage TIIa Gomer grade 3+3 Status post seed implant with cesium 131 as boost 12/08/2006 Status post completion of IMRT/IGRT 02/26/2007" Surgical History History of laparoscopic cholecystectomy (11/08/21) lap ish/ercp Nov 01 Chambers Status post aortic valve replacement with bioprosthetic valve H/O aortic valve repair H/O hernia repair Family History Mother Heart disease Brother Cancer Lung cancer Unknown Prostate cancer Father Prostate cancer Denies family history of Colon cancer Ovarian cancer Myocardial infarction Breast cancer Social History Smoking Status: Never smoker Tobacco Type: Cigarettes Age Started Using Tobacco: 8; Age Quit Using Tobacco: 75; packs per day: 2.5; Second Hand Exposure: No; Do You Dip or Chew Tobacco: No; Hx Alcohol Use: No Hx Substance Use: No Preferred Language: Turkish Communication Ability: Effective Visual Impairment: No Limitations Hearing Ability: Use of Hearing Aid Glass Designer Required: No Beliefs That Will Affect Care: None marital status: / Current Living Situation: Alone Current Living Situation Comment: lives at home alone with his cat current occupational status: retired How many Children do You have: 2 Other Information That Helps Us Care for You: No Feels Safe at Home: Yes Childhood Exposure to Second-Hand Smoke: Yes Diet: regular Diet Comment: regular caffeine: Yes during the past year weight has: remained stable Dental Care, Regularly: No Physical Activity Frequency: Does not Exercise Seatbelt Use: never Sunscreen Use: No Do you think of yourself as: straight/heterosexual Assistive Devices: Cane and Walker Review of Systems Review of Systems: CONSTITUTIONAL: No change in weight, No weakness, No fatigue and No fevers, No sweats or chills. PULMONARY: No cough, sputum, or hemoptysis, No wheezing, No shortness of breath and No recent change in breathing. CARDIOVASCULAR: No chest pain, No dyspnea on exertion, +edema, No palpitations and No syncope. GASTROINTESTINAL: No abdominal pain, No change in bowel habits, No significant heartburn, No nausea, No vomiting, No diarrhea, No constipation, No blood in stools or black tarry stools. No dysphagia. HEMATOLOGIC: No abnormal bleeding and No bruising. NEUROLOGICAL: Normal balance, No headaches and No weakness. Physical Exam Physical Exam: General: No acute distress. A+Ox3. HEENT: Normocephalic. Atraumatic. PERRL. EOMI. Conjunctiva and sclera clear. NECK: No carotid bruits. No JVD. Carotid upstrokes are brisk. Heart: RRR. S1 and S2 noted. No murmur. No rubs or gallops. PMI non displaced. Lungs: Clear to auscultation. No wheezes. No rhonchi. No rales. Abdomen: Normal bowel sounds. Soft. Nontender. No masses or organomegaly. No abdominal bruits. Extremities: 1-2+ bilateral edema. Bilateral dressing in place with wounds. No clubbing or cyanosis. Left arm significant edema. Pulses: radial=2/4, posterior tibial=2/4, dorsalis pedis = 2/4. NEURO: No focal deficits. PSYCH: Appropriate affect and insight. Results & Data Vital Signs (Past 12 Hours) Vital Signs Temp Pulse Pulse Resp BP Pulse Ox O2 Del Method 10/25/23 07:50 36.7 C 82 18 108/74 93 Room Air 10/25/23 07:00 75 10/25/23 02:56 36.7 C 74 18 110/63 93 Room Air 10/24/23 23:37 75 Laboratory Results Cardiac Enzymes 10/25/23 Range/Units 06:29 AST 23 (13-39) U/L Comprehensive Metabolic Panel 10/25/23 Range/Units 06:29 Sodium 142 (136-145) mmol/L Potassium 3.6 (3.5-5.1) mmol/L Chloride 102 (98-107) mmol/L Carbon Dioxide 33 H (21-32) mmol/L BUN 43 H (6-23) mg/dl Creatinine 2.43 H (0.6-1.4) mg/dl Glucose 89 (70-99(Fasting)) mg/dl Calcium 7.5 L (8.6-10.3) mg/dl AST 23 (13-39) U/L ALT 20 (7-52) U/L Alkaline Phosphatase 120 H (34-104) U/L Total Protein 5.9 L (6.0-8.3) gm/dl Albumin 2.8 L (3.4-5.0) gm/dl Intake and Output 10/24/23 10/25/23 10/25/23 22:59 06:59 14:59 Intake Total 620 / 1660 300 / 1660 100 / 100 Output Total 1800 / 4002 1200 / 4002 Balance -1180 / -2342 -900 / -2342 100 / 100 Intake: IV 100 / 300 100 / 300 100 / 100 Piperacillin/Tazobactam 4.5 gm 100 / 300 100 / 300 100 / 100 In Dextrose 5% Mini-B 100 ml @ 25 mls/hr IV Q8H [facility] Rx#: [id number] Oral 520 / 1360 200 / 1360 Output: Urine Amount (Catheter) 1800 / 4000 1200 / 4000 Devine/Indwelling 1800 / 4000 1200 / 4000 Other: Weight 90.7 kg Weight Measurement Method Built in Bedscale Diagnostic Findings Telemetry reviewed, paced in 70s (2) Cellulitis Laterality: unspecified laterality Site of cellulitis: extremity Site of cellulitis of extremity: lower extremity Qualified Code(s): L03.119 - Cellulitis of unspecified part of limb
[2023-10-26 06:46] LABS: Hemoglobin 9.8 g/dl (14.0-18.0); Mean Corpuscular Hemoglobin 28.5 pg (25.0-34.0); Mean Corpuscular Hgb Conc 32.7 g/dL (32.0-36.0); Mean Corpuscular Volume 87.2 fL (80.0-100.0); Mean Platelet Volume 12.1 fL (9.4-12.4); Platelet Count 184 K/uL (130-400); RDW Coefficient of Variation 17.3 % (11.5-14.5); RDW Standard Deviation 54.5 fL (36.4-46.3); Red Blood Count 3.44 M/uL (4.70-6.10); White Blood Count 6.15 K/ul (4.8-10.8)
[2023-10-26 07:01] LABS: Albumin Globulin Ratio 0.8 (0.9-2); Albumin Level 2.7 gm/dl (3.4-5.0); BUN Creatinine Ratio 18.1 (10-20); Bilirubin,Total 0.7 mg/dl (0.2-1.0); Calcium 7.8 mg/dl (8.6-10.3); Creatinine Clr Calc Pharmacy 27.6 ml/min; Est GFR (African American) 29.6 ml/min; Est GFR (Non-African American) 25.5 ml/min; Globulin 3.3 gm/dl (2.5-4.0); Magnesium 2.1 mg/dl (1.7-2.4); Potassium 3.5 mmol/L (3.5-5.1)
--- NOTE | 2023-10-26 07:48 | Hospitalist Progress Note ---
Date of Service October 26, 2023 Assessment & Plan (1) Acute on chronic combined systolic (congestive) and diastolic (congestive) heart failure: Plan: Was sent from the wound care clinic due to multiple issues including bilateral lower extremity cellulitis, multiple falls at home, and auditory hallucinations. Hx Enterobacter cloacae. Acute on chronic HFrEF, POA Suspect main contributor to his increased LE edema w/ med noncompliance at home in light of recently increased lasix to 40mg BID as above last inpatient stay. ECHO at that time LV systolic function mildly reduced, EF 40-45% Zosyn given for suspected cellulitis but has been discontinued for now/monitoring. Had been continued on Zosyn IV for suspected cellulitis however now WBC elevation and not overly tender/warm on exam and suspect from volume overload however had been sent by wound clinic for concerns of such and had been continued through today (10/24) however suspect more from volume overload and will discontinue as blood cultures remain NGTD, no fever/WBC elevation and preventing worsening kidney function in patient w/ CKD IV Patient endorses NOT complaint w/ his lasix at home and takes ONCE daily (when he remembers, does have pill packs to help)--> had lasix increased from 20mg PO BID to 40mg BID during August hospitalization and suspect needing increasing dosing with his CKD for effectiveness, but also improvement in compliance Placed on lasix 40mg IV BID which was continued through last evening 10/23 but SWITCHED TO BUMEX 2mg DAILY 10/24 to see if adequate output w/ once daily dosing to improve compliance appears -3L with ONCE daily dosing improvement in renal function with such, Cr 2.43--> 2.27 and will continue for now Net negative -10.1L currently Diamox x 2 doses to see if assistance w/ CO2 retention, elevated on labs. 98% on RA Appreciate additional recs/assistance from cardiology, follows with [facility] and likely benefit CHF clinic f/u Monitor weights/I&Os. Aguilar remains in place. Continue AHA/fluid restriction Wound RN to see today, compression wraps off for now. Elevation encouraged. Zosyn dc'd prior as DO NOT suspect cellulitis at this time Continued PT/OT to see if able to return home w/ HHPT, however currently needing assistance getting up from seated position but does well when up. 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 s/p Cefepime in ER -- continued on Zosyn to avoid hallucinations Given no WBC elevation/blood cultures neg and no warmth/pain on exam, doubt cellulitis and will DISCONTINUE ZOSYN. No worsening on exam but will continue to monitor. No leukocytosis/fevers or pain/warmth on exam Wound RN consult placed, continue elevation - hopefully able to see today. Continued outpt f/u (4) Hallucinations: Plan: Reported recent auditory hallucinations of voices are arguing with him, confirms there is no one in his home when this happens. He does have stressors w/ parents will/house for niece etc and needing legal assistnace reported No focal neuro defects on exam CT of the head and brain without contrast is negative for acute intracranial findings. Fall/aspiration precautions, bed alarm No reported hallucinations on exam today and will continue to monitor > b12 replacement as outlined below (5) Elevated troponin: Plan: Initial high-sensitivity troponin elevated 57, [id number]. Denies CP. Suspect demand ischemia in setting of acute on chronic CHF as well as possible infection. No acute ST segment/Twave changes noted on admission EKG. Continued tele monitoring without issue, has been PACED cards consulted as above (6) Falling: Plan: Frequent falling at home, CT head w/ scalp swelling/no acute process Suspect possible infection but also noncomplaince w/ diuretics and acute on chronic heart failure Lasix as above for diuresis, therapy evals B12/TSH w/ AM labs for completeness -- B12 low normal/replacement ordered. TSH wnl Patient does not appear to be able to safely care for himself at this time as his hygiene is very poor, he appears disheveled on exam however he is hopeful for home PT/OT/case management consults have been placed, will need to try and reach out to family to see what options we have moving forward, CM to follow (7) Coronary artery disease: Plan: Patient denies recent chest pain, no acute ECG changes Continue atorvastatin and Eliquis (8) Atrial fibrillation: Plan: has pacemaker, can interrogate to see if any episodes w/ falls at home Currently in a paced rhythm Continue Eliquis, amiodarone, and metoprolol keep mag/k replete (9) Stage 4 chronic kidney disease: Plan: Chronic kidney disease, stage 4 Cr slight elevation on admission, ?infection vs volume overload. Given 500cc w/ 40mg IV lasix on admission, lasix as outlined above home lisinopril on hold for now while diuresing and prevention of hypotension or worsening kidney function but may be able to resume to help w/ CHF as above however will hold off for now and may need to stop w/ his CKD and utilize diuretics w/ bumex as above renal dose meds/avoid nephrotoxins as able consider nephro consult if needed, likely need at dc regardless given CKD IV for ongoing monitoring. K stable, renal function improvement w/ bumex as above BMP in AM (10) B12 deficiency: Plan: low normal 287, PO replacement started and can continue at dc (11) S/P AVR (aortic valve replacement): Plan: noted Plan continued inpatient stay monitor for any need for resumption of abx, wound RN to see today Continue bumex 2mg once daily unless otherwise rec by cards. continued monitoring of weights/output Continued therapy evals to see if able to be safe to return home w/ HHPT rather than inpatient rehab per patients wishes but not safe at present time. Admission and Anticipated Discharge Date Admission Date: October 22, 2023 Supervising Physician Co-Signing Physician Notes The patient was not seen by me. The chart was reviewed. Case discussed with DAR Brandon. Agree with assessment and plan Subjective Patient evaluated this morning, sitting up at side of bed. Compression wraps off for now, elevation encouraged. Needing to move hs bowels, aide to assist. He is still wanting to go home but also endorses he needs to be able to get up by himself. Discussed will have therapy re-evaluate him while here but bumex seems to have decent effect on output and can consider continuing this once daily. Leg edema stable. No CP/SOB reported and good appetite. Questions/concerns addressed at this time. Physical Exam Physical Exam: General: 82yo chronically ill appearing/disheveled and unkempt gentleman , appears improved w/ edema/breathing, needing assistance to get up to go to the bathroom HEENT: swelling above R eyebrow, pupils equal, dressing to posterior scalp intact Chest: pacemaker to LEFT chest Resp: diminished in the bases, no w/c, on room air 97% CV: RRR, +systolic murmur, b/l pitting edema IMPROVING, slight rubor appearing more chronic and cool/not overly warm or tender to touch GI: +BS,nontender : aguilar draining clear yellow urine MSK/Neuro: not confused and able to follow commands, nonfocal/no slurred speech b/l LE edema as noted chronic LUE lymphedema/compression in place Psych: alert to person/place/time, poor insight at times regarding medical care Results & Data Results & Data Vital Signs (Past 12 Hours) Vital Signs Temp Pulse Pulse Resp BP Pulse Ox O2 Del Method 10/26/23 07:31 36.1 C L 75 15 139/82 98 Room Air 10/26/23 07:00 75 10/26/23 03:58 36.5 C 75 18 115/80 93 Room Air 10/26/23 01:13 75 10/26/23 00:00 36.6 C 75 18 111/71 96 Room Air 10/25/23 21:55 Room Air Laboratory Results 10/26/23 Range/Units 05:42 WBC 6.15 (4.8-10.8) K/ul RBC 3.44 L (4.70-6.10) M/uL Hgb 9.8 L (14.0-18.0) g/dl Hct 30.0 L (42.0-52.0) % MCV 87.2 (80.0-100.0) fL MCH 28.5 (25.0-34.0) pg MCHC 32.7 (32.0-36.0) g/dL RDW Std Deviation 54.5 H (36.4-46.3) fL RDW Coeff of Yony 17.3 H (11.5-14.5) % Plt Count 184 (130-400) K/uL MPV 12.1 (9.4-12.4) fL Sodium 141 (136-145) mmol/L Potassium 3.5 (3.5-5.1) mmol/L Chloride 101 (98-107) mmol/L Carbon Dioxide 36 H (21-32) mmol/L Anion Gap 4 (3-11) BUN 41 H (6-23) mg/dl Creatinine 2.27 H (0.6-1.4) mg/dl Est Cr Clr Drug Dosing 27.6 ml/min Est GFR ( Amer) 29.6 ml/min Est GFR (Non-Af Amer) 25.5 ml/min BUN/Creatinine Ratio 18.1 (10-20) Glucose 82 (70-99(Fasting)) mg/dl Calcium 7.8 L (8.6-10.3) mg/dl Magnesium 2.1 (1.7-2.4) mg/dl Total Bilirubin 0.7 (0.2-1.0) mg/dl AST 21 (13-39) U/L ALT 18 (7-52) U/L Alkaline Phosphatase 117 H (34-104) U/L B-Natriuretic Peptide 1312 H (0-100) pg/ml Total Protein 6.0 (6.0-8.3) gm/dl Albumin 2.7 L (3.4-5.0) gm/dl Globulin 3.3 (2.5-4.0) gm/dl Albumin/Globulin Ratio 0.8 L (0.9-2) PG Care Time/CCT Total # of Minutes Spent Total Time Spent with Patient: Total time spent is greater than 50% in coordination of care (as documented) at patient's floor/unit and/or counseling patient: Coding Level of Care Code 28206 SUB INP/OBS CARE 3/50MIN Diagnoses Acute on chronic combined systolic (congestive) and diastolic (congestive) heart failure I50.43 Fluid overload E87.70 Hypervolemia type: unspecified Cellulitis L03.119 Laterality: unspecified laterality Site of cellulitis: extremity Site of cellulitis of extremity: lower extremity Hallucinations R44.3 Elevated troponin R77.8 Falling R29.6 Coronary artery disease involving standing [place] coronary artery of standing [place] heart without angina pectoris I25.10 Associated angina: without angina Coronary Disease-Associated Artery/Lesion type: standing [place] artery [place] vs. transplanted heart: standing rock heart Longstanding persistent atrial fibrillation I48.11 Atrial fibrillation type: longstanding persistent Stage 4 chronic kidney disease N18.4 B12 deficiency E53.8 S/P AVR (aortic valve replacement) Z95.2 (2) Fluid overload Hypervolemia type: unspecified Qualified Code(s): E87.70 - Fluid overload, unspecified (3) Cellulitis Laterality: unspecified laterality Site of cellulitis: extremity Site of cellulitis of extremity: lower extremity Qualified Code(s): L03.119 - Cellulitis of unspecified part of limb (7) Coronary artery disease Associated angina: without angina Coronary Disease-Associated Artery/Lesion type: [place] artery [place] vs. transplanted heart: standing [place] heart Qualified Code(s): I25.10 - Atherosclerotic heart disease of standing [place] coronary artery without angina pectoris (8) Atrial fibrillation Atrial fibrillation type: longstanding persistent Qualified Code(s): I48.11 - Longstanding persistent atrial fibrillation
[2023-10-26] MEDS: POTASSIUM CHLORIDE CRTAB 20 MEQ TABCR PO STA (08:17)
[2023-10-26] MEDS: acetaZOLAMIDE 250 MG TAB PO SCH ×2 (11:28→16:43)
--- NOTE | 2023-10-26 12:28 | Cardiology Progress Note ---
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 - Hypervolemic on exam today although improved since admission, likely due to medication noncompliance. -3020 fluid balance - Transitioned to PO Bumex 2mg QAM - Strict I/Os, daily weight, 2L fluid restriction and 2gm sodium restriction. Goal serum K> 4.0 and Serum Mag 2.0 - Continue amiodarone, apixaban, atorvastatin, Jardiance, metoprolol succinate - likely would benefit from assistance whether at home or at facility for help with medication compliance - close follow up with outpatient [facility] cardiology after discharge Case has been discussed with Dr. Ram. Further recommendations regarding plan of care as per his assessment. I spent a total of 30 minutes on the date of service in preparation, delivery, documentation of the care provided to the patient excluding any time spent in the performance of separately billed services. LIZ Zavala [facility] Cardiology [facility] Admission and Anticipated Discharge Date Admission Date: October 22, 2023 Supervising Physician Co-Signing Physician Notes Attending attestation: Case reviewed with the advanced practitioner. I have personally performed a history and physical examination on the patient. I have reviewed the advanced practitioner's documentation on the date of service referenced in note, and I agree with, and take responsibility for the plan of care. Subjective:Patient states he is subjectively improved,However I think he under appreciates his degree of illness. Exam: 1-2+ BL LE edema, with multiple poorly healing wounds. Impression/ Plan: -Resume IV diuretics, buemx 1 mg IV daily on 10/26 -Will discuss with hospitalist service, re resuming antibiotics. Need to treat cellulitis to prevent ICD infection. I spent a total of 25 minutes coordinating, documenting, and providing care for this patient excluding time spent in the performance of separately billed services or time spent by another provider. Mika Ram DO Subjective 10/26/23: Patient seen and examined in follow up today. Feeling well. he is sitting out of bed in the chair. Denies any chest pain, pressure or palpitations. reports that his breathing "feeling better". legs are still with notable swelling and erythema. Continues to endorse increased swelling of his left upper extremity (has chronic lymphedema) Labs, vitals, diagnostics, telemetry and documentation reviewed. Telemetry reviewed showing Paced, Rate 75bpm Review of Systems Review of Systems: All systems reviewed & are unremarkable except as noted in HPI & below Physical Exam Constitutional: well developed and well nourished; no acute distress Neck: normal visual inspection and trachea midline Respiratory: normal respiratory effort; no respiratory distress, no labored breathing and no cough Auscultation: + diminished lung sounds (bilateral bases ); no crackles, no rales, no rhonchi and no wheezes Cardiovascular: Rate/Rhythm: regular rate and regular rhythm Heart Sounds: normal S1, normal S2 and + murmur (+1/6 Systolic murmur) Vessels: no JVD Extremities: + edema (+2 BLE, And Chronic lymphedema of the LUE) Skin: + erythema (bilateral lower extremities. 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 ) Results & Data Vital Signs (Past 12 Hours) Vital Signs Temp Pulse Pulse Resp BP Pulse Ox O2 Del Method 10/26/23 11:23 36.5 C 74 15 101/67 95 Room Air 10/26/23 09:53 Room Air 10/26/23 07:31 36.1 C L 75 15 139/82 98 Room Air 10/26/23 07:00 75 10/26/23 03:58 36.5 C 75 18 115/80 93 Room Air 10/26/23 01:13 75 Laboratory Results Cardiac Enzymes 10/26/23 Range/Units 05:42 AST 21 (13-39) U/L B-Natriuretic Peptide 1312 H (0-100) pg/ml Coagulation 10/26/23 Range/Units 05:42 B-Natriuretic Peptide 1312 H (0-100) pg/ml CBC 10/26/23 Range/Units 05:42 WBC 6.15 (4.8-10.8) K/ul RBC 3.44 L (4.70-6.10) M/uL Hgb 9.8 L (14.0-18.0) g/dl Hct 30.0 L (42.0-52.0) % Plt Count 184 (130-400) K/uL Comprehensive Metabolic Panel 10/26/23 Range/Units 05:42 Sodium 141 (136-145) mmol/L Potassium 3.5 (3.5-5.1) mmol/L Chloride 101 (98-107) mmol/L Carbon Dioxide 36 H (21-32) mmol/L BUN 41 H (6-23) mg/dl Creatinine 2.27 H (0.6-1.4) mg/dl Glucose 82 (70-99(Fasting)) mg/dl Calcium 7.8 L (8.6-10.3) mg/dl AST 21 (13-39) U/L ALT 18 (7-52) U/L Alkaline Phosphatase 117 H (34-104) U/L Total Protein 6.0 (6.0-8.3) gm/dl Albumin 2.7 L (3.4-5.0) gm/dl Intake and Output 10/25/23 10/26/23 10/26/23 22:59 06:59 14:59 Intake Total 400 / 780 280 / 780 Output Total 1750 / 3800 650 / 3800 Balance -1350 / -3020 -370 / -3020 Intake: Oral 400 / 680 280 / 680 Output: Urine 650 / 650 Urine Amount (Catheter) 1100 / 3150 650 / 3150 Devine/Indwelling 1100 / 3150 650 / 3150 Other: Weight 91.7 kg Weight Measurement Method Standing Scale (2) Cellulitis Laterality: unspecified laterality Site of cellulitis: extremity Site of cellulitis of extremity: lower extremity Qualified Code(s): L03.119 - Cellulitis of unspecified part of limb
[2023-10-26] MEDS: PIPERACILLIN/TAZOBACTAM 4.5 GM in DEXTROSE 5% MINI-B 100 ML IV SCH (14:35)
[2023-10-27 07:32] LABS: Hematocrit (blood only) 31.5 % (42.0-52.0); Hemoglobin 10.1 g/dl (14.0-18.0); Mean Corpuscular Hemoglobin 28.5 pg (25.0-34.0); Mean Corpuscular Hgb Conc 32.1 g/dL (32.0-36.0); Mean Corpuscular Volume 88.7 fL (80.0-100.0); Mean Platelet Volume 11.5 fL (9.4-12.4); Platelet Count 189 K/uL (130-400); RDW Standard Deviation 54.8 fL (36.4-46.3); Red Blood Count 3.55 M/uL (4.70-6.10); White Blood Count 6.23 K/ul (4.8-10.8)
[2023-10-27] MEDS: BUMETANIDE 1 MG in SYRINGE 0 ML IV SCH (07:34)
[2023-10-27 07:44] LABS: BUN Creatinine Ratio 17.7 (10-20); Calcium 7.9 mg/dl (8.6-10.3); Creatinine Clr Calc Pharmacy 26.4 ml/min; Est GFR (African American) 28.1 ml/min; Est GFR (Non-African American) 24.2 ml/min; Magnesium 2.2 mg/dl (1.7-2.4); Potassium 3.8 mmol/L (3.5-5.1)
--- NOTE | 2023-10-27 08:43 | Cardiology Progress Note ---
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 - Hypervolemic on exam today although improved since admission, likely due to medication noncompliance. -3020 fluid balance - Transitioned to PO Bumex 2mg QAM - Strict I/Os, daily weight, 2L fluid restriction and 2gm sodium restriction. Goal serum K> 4.0 and Serum Mag 2.0 - Continue amiodarone, apixaban, atorvastatin, Jardiance, metoprolol succinate - likely would benefit from assistance whether at home or at facility for help with medication compliance - close follow up with outpatient [facility] cardiology after discharge 10/27/2023: -Patient continues with hypervolemia on exam although some improvement since yesterday. -Would recommend to continue on Bumex 1mg IV daily with close monitoring of daily weights, renal function, electrolytes and Strict I&O. -2L fluid restriction, 2gm sodium restriction -Goal Serum K> 4.0 and Serum Mag > 2.0 -Continue amiodarone, apixaban, atorvastatin, Jardiance, metoprolol succinate -Continued management of BLE wounds/ cellulitis per primary team. currently has leg dressings on and is receiving IV Zosyn. Monitor fluid status closely. - likely would benefit from assistance whether at home or at facility for help with medication compliance - close follow up with outpatient [facility] cardiology after discharge Case has been discussed with Dr. Ram. Further recommendations regarding plan of care as per his assessment. I spent a total of 30 minutes on the date of service in preparation, delivery, documentation of the care provided to the patient excluding any time spent in the performance of separately billed services. LIZ Zavala [facility] Cardiology [facility] Admission and Anticipated Discharge Date Admission Date: October 22, 2023 Supervising Physician Co-Signing Physician Notes Attending attestation: Case reviewed with the advanced practitioner. I have personally performed a history and physical examination on the patient. I have reviewed the advanced practitioner's documentation on the date of service referenced in note, and I agree with, and take responsibility for the plan of care. Exam: 1-2+ BL LE edema, with multiple poorly healing wounds. Impression/ Plan: -Increase Bumex to 1 mg IV twice daily given increased volume associated with IV Zosyn administration. -Continue Eliquis for stroke prophylaxis/DVT prophylaxis. I spent a total of 25 minutes coordinating, documenting, and providing care for this patient excluding time spent in the performance of separately billed services or time spent by another provider. Mkia Ram DO Subjective 10/27/23: Patient seen and examined in follow up today. Feeling well from a cardiac perspective. offers no new concerns. Denies chest pain, pressure or palpitations. States that his legs are feeling a little better. Labs, vitals, diagnostics, telemetry and documentation reviewed. Telemetry reviewed remains Paced with rates typically in the 70's. multiple 3-4 beat runs of VT noted on telemetry overnight. Not unusual for this patient Electrolytes stable -1830 fluid balance Review of Systems Review of Systems: All systems reviewed & are unremarkable except as noted in HPI & below Physical Exam Constitutional: well developed and well nourished; no acute distress Neck: normal visual inspection and trachea midline Respiratory: normal respiratory effort; no respiratory distress, no labored breathing and no cough Auscultation: + diminished lung sounds (bilateral bases ); no crackles, no rales, no rhonchi and no wheezes Cardiovascular: Rate/Rhythm: regular rate and regular rhythm Heart Sounds: normal S1, normal S2 and + murmur (+1/6 Systolic murmur) Vessels: no JVD Extremities: + edema (+1 BLE, And Chronic lymphedema of the LUE) Skin: + erythema (bilateral lower extremities. 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 ) Results & Data Vital Signs (Past 12 Hours) Vital Signs Temp Pulse Pulse Resp BP Pulse Ox O2 Del Method 10/27/23 07:36 36.3 C L 75 16 114/77 95 Room Air 10/27/23 04:21 36.3 C L 76 18 111/76 95 Room Air 10/26/23 23:30 36.3 C L 74 20 123/76 93 Room Air 10/26/23 21:58 75 Laboratory Results Cardiac Enzymes 10/27/23 Range/Units 06:46 Lactate Dehydrogenase 230 (86-244) U/L CBC 10/27/23 Range/Units 06:46 WBC 6.23 (4.8-10.8) K/ul RBC 3.55 L (4.70-6.10) M/uL Hgb 10.1 L (14.0-18.0) g/dl Hct 31.5 L (42.0-52.0) % Plt Count 189 (130-400) K/uL Comprehensive Metabolic Panel 10/27/23 Range/Units 06:46 Sodium 139 (136-145) mmol/L Potassium 3.8 (3.5-5.1) mmol/L Chloride 102 (98-107) mmol/L Carbon Dioxide 34 H (21-32) mmol/L BUN 42 H (6-23) mg/dl Creatinine 2.37 H (0.6-1.4) mg/dl Glucose 90 (70-99(Fasting)) mg/dl Calcium 7.9 L (8.6-10.3) mg/dl Intake and Output 10/26/23 10/27/23 10/27/23 22:59 06:59 14:59 Intake Total 100 / 1020 480 / 1020 100 / 100 Output Total 750 / 2850 1400 / 2850 Balance -650 / -1830 -920 / -1830 100 / 100 Intake: IV 100 / 200 100 / 200 100 / 100 Piperacillin/Tazobactam 4.5 gm 100 / 200 100 / 200 100 / 100 In Dextrose 5% Mini-B 100 ml @ 25 mls/hr IV Q8H [facility] Rx#: [id number] Oral 380 / 820 Output: Urine Amount (Catheter) 750 / 2850 1400 / 2850 Devine/Indwelling 750 / 2850 1400 / 2850 Other: Weight 91.8 kg Weight Measurement Method Built in [facility] (2) Cellulitis Laterality: unspecified laterality Site of cellulitis: extremity Site of cellulitis of extremity: lower extremity Qualified Code(s): L03.119 - Cellulitis of unspecified part of limb
--- NOTE | 2023-10-27 15:04 | Hospitalist Progress Note ---
Date of Service October 27, 2023 Assessment & Plan (1) Acute on chronic combined systolic (congestive) and diastolic (congestive) heart failure: Plan: Was sent from the wound care clinic due to multiple issues including bilateral lower extremity cellulitis, multiple falls at home, and auditory hallucinations. History of Enterobacter cloacae. Acute on chronic HFrEF, POA - Suspect main contributor to his increased LE edema was medication nonc ompliance at home in light of recently increased Lasix to 40mg BID last inpatient stay. > Echo at that time showed LV systolic function mildly reduced, EF 40-45%. - Continue Bumex 1 mg IV daily with close monitoring of daily weights, renal function, electrolytes and Strict I&O. > Appears improved with Bumex and suspect better absorption/bioavailability - Was on Zosyn IV for suspected cellulitis, however this was discontinued in setting of negative blood cultures, afebrile, no leukocytosis, and to prevent worsening kidney function (CKD IV). > Zosyn was resumed 10/25 due to concern for his ICD if this is cellulitis, however suspect this is more likely due to volume overload than infection. - Follows with [facility] cardiology, will need close outpatient follow-up with them, and would likely benefit from CHF clinic follow-up upon discharge. - Monitor weights/I&Os. Continue Devine. Continue 2L fluid restriction, 2gm sodium restriction. - Continued PT/OT to see if able to return home w/ HH PT, however currently needing assistance getting up from seated position but does well when up. Continued monitoring/discussion. (2) Cellulitis: Plan: Sent by wound clinic for concerns of such increased LE edema/?infection. > Hx bilateral GSV ablation with Dr Kendall earlier this year. - S/p Cefepime in ER -- switched to Zosyn to avoid hallucinations - Continue wound clinic follow-up on discharge. 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 Clean wounds with saline. Cover open areas with Aquacel Ag, ABD and secure with Kerlix. Change every other day and as needed for drainage. (3) Hallucinations: Plan: Reported recent auditory hallucinations of voices are arguing with him, confirms there is no one in his home when this happens. He does have stressors with parents will/house for niece etc and needing legal assistance reported - No focal neuro defects on exam - CT of the head and brain without contrast is negative for acute intracranial findings. - Fall/aspiration precautions, bed alarm No reported hallucinations during evaluation 10/26, will continue to monitor (4) Elevated troponin: Plan: Initial high-sensitivity troponin elevated 57, repeat 56.1. - Denies CP. Suspect this was due to demand ischemia in setting of acute on chronic CHF as well as possible infection. - No acute ST segment / T wave changes noted on admission EKG. (5) Falling: Plan: Frequent falling at home, CT head with scalp swelling/no acute process - Suspect possible infection but also noncompliance with diuretics and acute on chronic heart failure - Lasix as above for diuresis, therapy evals - B12 low normal/replacement ordered. TSH WNL. Patient does not appear to be able to safely care for himself at this time as his hygiene is very poor, he appears disheveled on exam however he is hopeful for home - PT/OT/case management consults have been placed, will need to try and reach out to family to see what options we have moving forward, CM to follow (6) Atrial fibrillation: Plan: Currently in a paced rhythm Continue amiodarone, apixaban, atorvastatin, Jardiance, metoprolol succinate (7) Stage 4 chronic kidney disease: Plan: Cr slight elevation on admission, ?infection vs volume overload. - Home lisinopril on hold for now while diuresing and prevention of hypotension or worsening kidney function but may be able to resume to help w/ CHF as above however will hold off for now > May need to stop with his CKD and utilize diuretics with Bumex as above - K stable Renal dose meds/avoid nephrotoxins as able Recommend nephrology follow-up on discharge given CKD IV for ongoing monitoring. (8) B12 deficiency: Plan: Vit B12 at 287 on 10/23 - PO replacement started and can continue at discharge Plan Discussed case with cardiology Discharged discharge planning with case management. Continued therapy evals to see if able to be safe to return home with HH PT rather than inpatient rehab; patients wishes to return home, but not safe at present time. VTE PPx: Eliquis BID CODE STATUS: Full code Recommend close outpatient follow-up with [facility] cardiology, establish care with CHF clinic, nephrology follow-up, wound clinic follow-up on discharge. Admission and Anticipated Discharge Date Admission Date: October 22, 2023 Subjective Patient seen and evaluated at bedside. He reports that his legs are feeling better today. We discussed the options of home health versus rehab upon discharge from the hospital, and patient reports that he is not interested in rehab. He has no other complaints or concerns at this time. Physical Exam Physical Exam: General: No acute distress, nondiaphoretic, well-nourished, unkempt. Skin: The skin was without rashes, erythema, or bruising. Bilateral lower extremity edema. Chronic LUE lymphedema/compression in place. Cardiac: Regular rate and rhythm without murmurs gallops or rubs. Pulm: Breath sounds diminished at bases but clear to auscultation bilaterally without wheezes, rales or rhonchi. No respiratory distress. 93% on room air. Abdominal: Soft, nontender, nondistended. Bowel sounds present. : Devine draining clear yellow urine. Neuro: A&O x3. No focal neurological deficits. Poor insight at times regarding medical care. Results & Data Results & Data Vital Signs (Past 12 Hours) Vital Signs Temp Pulse Pulse Resp BP Pulse Ox O2 Del Method 10/27/23 11:01 36.7 C 75 15 95/64 L 97 Room Air 10/27/23 09:08 75 10/27/23 07:36 36.3 C L 75 16 114/77 95 Room Air 10/27/23 04:21 36.3 C L 76 18 111/76 95 Room Air Laboratory Results Reviewed CBC Reviewed chemistries Reviewed blood cultures PG Care Time/CCT Total # of Minutes Spent Total Time Spent with Patient: Total time spent is greater than 50% in coordination of care (as documented) at patient's floor/unit and/or counseling patient: Coding Level of Care Code 61210 SUB INP/OBS CARE 3/50MIN Diagnoses Acute on chronic combined systolic (congestive) and diastolic (congestive) heart failure I50.43 Cellulitis L03.119 Laterality: unspecified laterality Site of cellulitis: extremity Site of cellulitis of extremity: lower extremity Hallucinations R44.3 Elevated troponin R77.8 Falling R29.6 Longstanding persistent atrial fibrillation I48.11 Atrial fibrillation type: longstanding persistent Stage 4 chronic kidney disease N18.4 B12 deficiency E53.8 (2) Cellulitis Laterality: unspecified laterality Site of cellulitis: extremity Site of cellulitis of extremity: lower extremity Qualified Code(s): L03.119 - Cellulitis of unspecified part of limb (6) Atrial fibrillation Atrial fibrillation type: longstanding persistent Qualified Code(s): I48.11 - Longstanding persistent atrial fibrillation
[2023-10-27] MEDS: BUMETANIDE 1 MG in SYRINGE 0 ML IV ONE (19:40)
[2023-10-27 22:14] LABS: BUN Creatinine Ratio 17.1 (10-20); Calcium 8.1 mg/dl (8.6-10.3); Creatinine Clr Calc Pharmacy 24.9 ml/min; Est GFR (African American) 26.1 ml/min; Est GFR (Non-African American) 22.5 ml/min; Magnesium 2.2 mg/dl (1.7-2.4); Potassium 3.6 mmol/L (3.5-5.1)
[2023-10-27] MEDS: POTASSIUM CHLORIDE / WTR 10 MEQ/100 ML PLCT IV ONE (23:50)
[2023-10-28 07:39] LABS: Hematocrit (blood only) 30.2 % (42.0-52.0); Hemoglobin 9.9 g/dl (14.0-18.0); Mean Corpuscular Hemoglobin 28.8 pg (25.0-34.0); Mean Corpuscular Hgb Conc 32.8 g/dL (32.0-36.0); Mean Corpuscular Volume 87.8 fL (80.0-100.0); Mean Platelet Volume 11.4 fL (9.4-12.4); Platelet Count 203 K/uL (130-400); RDW Coefficient of Variation 17.2 % (11.5-14.5); RDW Standard Deviation 54.5 fL (36.4-46.3); Red Blood Count 3.44 M/uL (4.70-6.10); White Blood Count 6.23 K/ul (4.8-10.8)
[2023-10-28 08:00] LABS: BUN Creatinine Ratio 19.3 (10-20); Calcium 7.8 mg/dl (8.6-10.3); Creatinine Clr Calc Pharmacy 26.3 ml/min; Est GFR (Non-African American) 24.1 ml/min; Magnesium 2.2 mg/dl (1.7-2.4); Potassium 3.6 mmol/L (3.5-5.1)
--- NOTE | 2023-10-28 08:37 | Cardiology Progress Note ---
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 - Hypervolemic on exam today although improved since admission, likely due to medication noncompliance. -3020 fluid balance - Transitioned to PO Bumex 2mg QAM - Strict I/Os, daily weight, 2L fluid restriction and 2gm sodium restriction. Goal serum K> 4.0 and Serum Mag 2.0 - Continue amiodarone, apixaban, atorvastatin, Jardiance, metoprolol succinate - likely would benefit from assistance whether at home or at facility for help with medication compliance - close follow up with outpatient [facility] cardiology after discharge 10/27/2023: -Patient continues with hypervolemia on exam although some improvement since yesterday. -Would recommend to continue on Bumex 1mg IV daily with close monitoring of daily weights, renal function, electrolytes and Strict I&O. -2L fluid restriction, 2gm sodium restriction -Goal Serum K> 4.0 and Serum Mag > 2.0 -Continue amiodarone, apixaban, atorvastatin, Jardiance, metoprolol succinate -Continued management of BLE wounds/ cellulitis per primary team. currently has leg dressings on and is receiving IV Zosyn. Monitor fluid status closely. - likely would benefit from assistance whether at home or at facility for help with medication compliance - close follow up with outpatient [facility] cardiology after discharge 10/28/2023: -Continues to demonstrate good urine output and improvement in his fluid status. -840cc fluid balance at time of exam. -Would recommend to continue on Bumex 1 mg IV BID with close monitoring of daily weights, renal function, electrolytes and Strict I&O. -2L fluid restriction, 2gm sodium restriction -Goal Serum K> 4.0 and Serum Mag > 2.0 -Continue amiodarone, apixaban, atorvastatin, Jardiance, metoprolol succinate -Continued management of BLE wounds/ cellulitis per primary team. currently has leg dressings on -Zosyn discontinued in favor or starting PO Doxycycline likely would benefit from assistance whether at home or at facility for help with medication compliance - close follow up with outpatient [facility] cardiology after discharge Case has been discussed with Dr. Ram. Further recommendations regarding plan of care as per his assessment. I spent a total of 30 minutes on the date of service in preparation, delivery, documentation of the care provided to the patient excluding any time spent in the performance of separately billed services. LIZ Zavala [facility] Cardiology [facility] Admission and Anticipated Discharge Date Admission Date: October 22, 2023 Supervising Physician Co-Signing Physician Notes Attending attestation: Case reviewed with the advanced practitioner. I have personally performed a history and physical examination on the patient. I have reviewed the advanced practitioner's documentation on the date of service referenced in note, and I agree with, and take responsibility for the plan of care. Exam: 1-2+ BL LE edema, with multiple poorly healing wounds. Impression/ Plan: -Device check given episode of VT, patient has a history of VT and is on chronic amiodarone has had an ICD settings changed in the past to allow for antitachycardia pacing which was effective last evening. -Since discontinued. Placed on doxycycline for cellulitis to complete 7-day course. -Continue IV Bumex, 1 mg IV twice daily. -Will consider removing Devine tomorrow. I spent a total of 25 minutes coordinating, documenting, and providing care for this patient excluding time spent in the performance of separately billed services or time spent by another provider. Mika Ram, Subjective 10/28/2023: Patient seen and examined in follow up today. Feeling well overall. he is sitting up at the side of his bed without complaint. Denies any chest pain, pressure, palpitations, shortness of breath, PND, or syncope. patient reports that he had developed some mild dizziness last evening and next thing he knew nursing staff had come rushing in. This was consistent with review of telemetry when patient had developed monomorphic VT at 21:02 in which he appears to have been paced out of. Labs, vitals, diagnostics, telemetry and documentation reviewed. Telemetry reviewed showing paced 75bpm. As noted above, Episode of VT at 2101. Review of Systems Review of Systems: CONSTITUTIONAL: No change in weight, No weakness, No fatigue and No fevers, No sweats or chills. PULMONARY: No cough, sputum, or hemoptysis, No wheezing, No shortness of breath and No recent change in breathing. CARDIOVASCULAR: No chest pain, No dyspnea on exertion, +edema, No palpitations and No syncope. GASTROINTESTINAL: No abdominal pain, No change in bowel habits, No significant heartburn, No nausea, No vomiting, No diarrhea, No constipation, No blood in stools or black tarry stools. No dysphagia. HEMATOLOGIC: No abnormal bleeding and No bruising. NEUROLOGICAL: Normal balance, No headaches and No weakness. Physical Exam Constitutional: well developed and well nourished; no acute distress Neck: normal visual inspection and trachea midline Respiratory: normal respiratory effort; no respiratory distress, no labored breathing and no cough Auscultation: + diminished lung sounds (bilateral bases ); no crackles, no rales, no rhonchi and no wheezes Cardiovascular: Rate/Rhythm: regular rate and regular rhythm Heart Sounds: normal S1, normal S2 and + murmur (+1/6 Systolic murmur) Vessels: no JVD Extremities: + edema (+1 BLE, And Chronic lymphedema of the LUE) Skin: + erythema (bilateral lower extremities. 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 ) Results & Data Vital Signs (Past 12 Hours) Vital Signs Temp Pulse Pulse Resp BP Pulse Ox O2 Del Method 10/28/23 08:02 36.4 C L 77 16 114/74 94 Room Air 10/28/23 03:16 36.7 C 75 18 103/68 93 Room Air 10/27/23 22:56 36.4 C L 74 16 111/75 97 Room Air 10/27/23 21:56 75 10/27/23 21:11 36.5 C 75 18 128/71 97 Room Air Laboratory Results CBC 10/28/23 Range/Units 07:10 WBC 6.23 (4.8-10.8) K/ul RBC 3.44 L (4.70-6.10) M/uL Hgb 9.9 L (14.0-18.0) g/dl Hct 30.2 L (42.0-52.0) % Plt Count 203 (130-400) K/uL Comprehensive Metabolic Panel 10/27/23 10/28/23 Range/Units 21:33 07:10 Sodium 137 138 (136-145) mmol/L Potassium 3.6 3.6 (3.5-5.1) mmol/L Chloride 101 104 (98-107) mmol/L Carbon Dioxide 29 28 (21-32) mmol/L BUN 43 H 46 H (6-23) mg/dl Creatinine 2.52 H 2.38 H (0.6-1.4) mg/dl Glucose 99 93 (70-99(Fasting)) mg/dl Calcium 8.1 L 7.8 L (8.6-10.3) mg/dl Intake and Output 10/27/23 10/28/23 10/28/23 22:59 06:59 14:59 Intake Total 100 / 1535 840 / 1535 Output Total 1550 / 2375 Balance 100 / -840 -710 / -840 Intake: IV 100 / 400 200 / 400 Piperacillin/Tazobactam 4.5 gm 100 / 300 100 / 300 In Dextrose 5% Mini-B 100 ml @ 25 mls/hr IV Q8H [facility] Rx#: [id number] Potassium Chloride / Wtr 10 meq 100 / 100 In 100 ml @ 100 mls/hr IV ONE ONE Rx#:[id number] Oral 640 / 1135 Output: Urine Amount (Catheter) 1550 / 2375 Devine/Indwelling 1550 / 2375 Other: Weight 91.7 kg 91.7 kg Patient Weight 10/29/23 06:59 Weight 91.7 kg (2) Cellulitis Laterality: unspecified laterality Site of cellulitis: extremity Site of cellulitis of extremity: lower extremity Qualified Code(s): L03.119 - Cellulitis of unspecified part of limb
[2023-10-28] MEDS: DOXYCYCLINE HYCLATE 100 MG CAP PO SCH (12:56)
[2023-10-28] MEDS: BUMETANIDE 1 MG in SYRINGE 0 ML IV SCH (12:56)
[2023-10-28] MEDS: POTASSIUM CHLORIDE 10 MEQ TABCR PO STA (12:58)
--- NOTE | 2023-10-28 17:01 | Hospitalist Progress Note ---
Date of Service October 28, 2023 Assessment & Plan (1) Acute on chronic combined systolic (congestive) and diastolic (congestive) heart failure: Plan: Was sent from the wound care clinic due to multiple issues including bilateral lower extremity cellulitis, multiple falls at home, and auditory hallucinations. History of Enterobacter cloacae. Acute on chronic HFrEF, POA - Suspect main contributor to his increased LE edema was medication nonc ompliance at home in light of recently increased Lasix to 40mg BID last inpatient stay. > Echo at that time showed LV systolic function mildly reduced, EF 40-45%. - Continue Bumex 1 mg IV BID with close monitoring of daily weights, renal function, electrolytes and Strict I&O. > Appears improved with Bumex and suspect better absorption/bioavailability - Follows with [facility] cardiology, will need close outpatient follow-up with them, and would likely benefit from CHF clinic follow-up upon discharge. - Monitor weights/I&Os. Continue Devine. Continue 2L fluid restriction, 2gm sodium restriction. -Patient is agreeable to home health. Referrals pending. (2) Cellulitis: Plan: Sent by wound clinic for concerns of such increased LE edema/?infection. > Hx bilateral GSV ablation with Dr Kendall earlier this year. - Due to concern for his ICD becoming infected if this is cellulitis, patient wa s on Zosyn. This was changed to doxycycline on 10/27, last day of antibiotics 11/01/2023. > Can continue empiric antibiotics, however, I suspect this is more likely due to volume overload than infection. - Continue wound clinic follow-up on discharge. - kaitara taraka discharge instructions: 2 open areas on bilateral lower extremities, wash/rinse/dry legs. Clean wounds with saline. Cover open areas with Aquacel Ag, ABD and secure with Kerlix. Change every other day and as needed for drainage. (3) Hallucinations: Plan: Reported recent auditory hallucinations of voices are arguing with him, confirms there is no one in his home when this happens. He does have stressors with parents will/house for niece etc and needing legal assistance reported - No focal neuro defects on exam - CT of the head and brain without contrast is negative for acute intracranial findings. - Fall/aspiration precautions, bed alarm No reported hallucinations during evaluation 10/26 and 10/27, will continue to monitor (4) Elevated troponin: Plan: Initial high-sensitivity troponin elevated 57, repeat 56.1. - Denies CP. Suspect this was due to demand ischemia in setting of acute on chronic CHF as well as possible infection. - No acute ST segment / T wave changes noted on admission EKG. (5) Falling: Plan: Frequent falling at home, CT head with scalp swelling/no acute process - Suspect possible infection but also noncompliance with diuretics and acute on chronic heart failure - Lasix as above for diuresis, therapy evals - B12 low normal/replacement ordered. TSH WNL. Patient does not appear to be able to safely care for himself at this time as his hygiene is very poor, he appears disheveled on exam however he is hopeful for home -Patient continues to refuse rehab upon discharge. He is agreeable to home health services. Referrals pending. (6) Atrial fibrillation: Plan: Currently in a paced rhythm Continue amiodarone, apixaban, atorvastatin, Jardiance, metoprolol succinate (7) Stage 4 chronic kidney disease: Plan: Cr slight elevation on admission, ?infection vs volume overload. - Home lisinopril on hold for now while diuresing and prevention of hypotension or worsening kidney function but may be able to resume to help w/ CHF as above however will hold off for now > May need to stop with his CKD and utilize diuretics with Bumex as above - K stable Renal dose meds/avoid nephrotoxins as able Recommend nephrology follow-up on discharge given CKD IV for ongoing monitoring. (8) B12 deficiency: Plan: Vit B12 at 287 on 10/23 - PO replacement started and can continue at discharge Plan Discussed case with pharmacy Discussed discharge planning with case management VTE PPx: Eliquis BID CODE STATUS: Full code Recommend close outpatient follow-up with [facility] cardiology, establish care with CHF clinic, nephrology follow-up, wound clinic follow-up on discharge. Admission and Anticipated Discharge Date Admission Date: October 22, 2023 Subjective Patient seen and evaluated in bedside chair. He reports that he is feeling well overall today. Patient had an episode of V. tach around 2100 last night. He reports that he had some dizziness, then nursing rushed into the room. Patient now in a paced rhythm around 75 bpm. Denies any dizziness, palpitations, shortness of breath, chest pain, chest pressure, or lightheadedness at this time. Patient reports that he is eager to be discharged. He is agreeable to home health. No additional complaints or concerns at this time. Physical Exam Physical Exam: General: No acute distress, nondiaphoretic, well-nourished, unkempt. Skin: The skin was without rashes, erythema, or bruising. Bilateral lower extremity edema. Chronic LUE lymphedema/compression in place. Cardiac: Regular rate and rhythm without murmurs gallops or rubs. Pulm: Breath sounds diminished at bases but clear to auscultation bilaterally without wheezes, rales or rhonchi. No respiratory distress. 95% on room air. Abdominal: Soft, nontender, nondistended. Bowel sounds present. : Devine draining clear yellow urine. Neuro: A&O x3. No focal neurological deficits. Poor insight at times regarding medical care. Results & Data Results & Data Vital Signs (Past 12 Hours) Vital Signs Temp Pulse Pulse Resp BP Pulse Ox O2 Del Method 10/28/23 16:09 36.8 C 75 16 95/65 L 95 Room Air 10/28/23 14:44 75 10/28/23 10:22 75 10/28/23 08:02 36.4 C L 77 16 114/74 94 Room Air Laboratory Results Reviewed CBC Reviewed BMP PG Care Time/CCT Total # of Minutes Spent Total Time Spent with Patient: Total time spent is greater than 50% in coordination of care (as documented) at patient's floor/unit and/or counseling patient: Coding Level of Care Code 55861 SUB INP/OBS CARE 2/35MIN Diagnoses Acute on chronic combined systolic (congestive) and diastolic (congestive) heart failure I50.43 Cellulitis L03.119 Laterality: unspecified laterality Site of cellulitis: extremity Site of cellulitis of extremity: lower extremity Hallucinations R44.3 Elevated troponin R77.8 Falling R29.6 Longstanding persistent atrial fibrillation I48.11 Atrial fibrillation type: longstanding persistent Stage 4 chronic kidney disease N18.4 B12 deficiency E53.8 (2) Cellulitis Laterality: unspecified laterality Site of cellulitis: extremity Site of cellulitis of extremity: lower extremity Qualified Code(s): L03.119 - Cellulitis of unspecified part of limb (6) Atrial fibrillation Atrial fibrillation type: longstanding persistent Qualified Code(s): I48.11 - Longstanding persistent atrial fibrillation
[2023-10-29 07:54] LABS: Hematocrit (blood only) 29.4 % (42.0-52.0); Hemoglobin 9.5 g/dl (14.0-18.0); Mean Corpuscular Hemoglobin 28.4 pg (25.0-34.0); Mean Corpuscular Hgb Conc 32.3 g/dL (32.0-36.0); Mean Platelet Volume 11.5 fL (9.4-12.4); Platelet Count 206 K/uL (130-400); RDW Coefficient of Variation 17.2 % (11.5-14.5); RDW Standard Deviation 54.8 fL (36.4-46.3); Red Blood Count 3.34 M/uL (4.70-6.10); White Blood Count 7.51 K/ul (4.8-10.8)
[2023-10-29 08:22] LABS: BUN Creatinine Ratio 21.3 (10-20); Creatinine Clr Calc Pharmacy 25.2 ml/min; Est GFR (African American) 26.5 ml/min; Est GFR (Non-African American) 22.8 ml/min; Potassium 3.7 mmol/L (3.5-5.1)
--- NOTE | 2023-10-29 08:55 | Cardiology Progress Note ---
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 - Hypervolemic on exam today although improved since admission, likely due to medication noncompliance. -3020 fluid balance - Transitioned to PO Bumex 2mg QAM - Strict I/Os, daily weight, 2L fluid restriction and 2gm sodium restriction. Goal serum K> 4.0 and Serum Mag 2.0 - Continue amiodarone, apixaban, atorvastatin, Jardiance, metoprolol succinate - likely would benefit from assistance whether at home or at facility for help with medication compliance - close follow up with outpatient [facility] cardiology after discharge 10/27/2023: -Patient continues with hypervolemia on exam although some improvement since yesterday. -Would recommend to continue on Bumex 1mg IV daily with close monitoring of daily weights, renal function, electrolytes and Strict I&O. -2L fluid restriction, 2gm sodium restriction -Goal Serum K> 4.0 and Serum Mag > 2.0 -Continue amiodarone, apixaban, atorvastatin, Jardiance, metoprolol succinate -Continued management of BLE wounds/ cellulitis per primary team. currently has leg dressings on and is receiving IV Zosyn. Monitor fluid status closely. - likely would benefit from assistance whether at home or at facility for help with medication compliance - close follow up with outpatient [facility] cardiology after discharge 10/28/2023: -Continues to demonstrate good urine output and improvement in his fluid status. -840cc fluid balance at time of exam. -Would recommend to continue on Bumex 1 mg IV BID with close monitoring of daily weights, renal function, electrolytes and Strict I&O. -2L fluid restriction, 2gm sodium restriction -Goal Serum K> 4.0 and Serum Mag > 2.0 -Continue amiodarone, apixaban, atorvastatin, Jardiance, metoprolol succinate -Continued management of BLE wounds/ cellulitis per primary team. currently has leg dressings on -Zosyn discontinued in favor or starting PO Doxycycline likely would benefit from assistance whether at home or at facility for help with medication compliance - close follow up with outpatient [facility] cardiology after discharge 10/29/2023: -Patient's fluid status continues to show marked improvement by physical exam. -Patient received Bumex 1mg IV this AM. will plan to given a second dose this afternoon (around 1pm) and then discontinue. Remove aguilar catheter this evening (5pm/6pm) and will plan to assess fluid status in the AM and transition to Bumex 2mg PO Daily. -Continue close monitoring of daily weights, renal function, electrolytes and Strict I&O. -2L fluid restriction, 2gm sodium restriction -Goal Serum K> 4.0 and Serum Mag > 2.0. -PO Doxycycline per management of Primary team. -Case management involved as patient would benefit from assistance at home vs facility. -Recommend close follow up with Cardiology upon discharged ideally within 2-4 weeks. Case has been discussed with Dr. Ram. Further recommendations regarding plan of care as per his assessment. I spent a total of 30 minutes on the date of service in preparation, delivery, documentation of the care provided to the patient excluding any time spent in the performance of separately billed services. LIZ Zavala [facility] Cardiology [facility] Admission and Anticipated Discharge Date Admission Date: October 22, 2023 Supervising Physician Co-Signing Physician Notes Attending attestation: Case reviewed with the advanced practitioner. I have personally performed a history and physical examination on the patient. I have reviewed the advanced practitioner's documentation on the date of service referenced in note, and I agree with, and take responsibility for the plan of c are. Exam: 1-2+ BL LE edema, with multiple poorly healing wounds. Impression/ Plan: -Device check given episode of VT, patient has a history of VT and is on chronic amiodarone has had an ICD settings changed in the past to allow for antitachycardia pacing which was effective last evening. -IV Zosyn discontinued. Continue oral course of doxycycline, last dose 11/01/2023. -A total of 2 mg IV Bumex due today, 10/29/2023, and will transition back to oral Bumex 2 mg by mouth daily on 10/30/2023. Patient tolerated this well earlier this hospital stay. -Remove Aguilar catheter evening of 10/29/2023. I spent a total of 25 minutes coordinating, documenting, and providing care for this patient excluding time spent in the performance of separately billed services or time spent by another provider. Mika Ram, Subjective 10/29/23: Patient seen and examined in follow up today. Feeling well overall. Resting comfortably in bed. Denies any chest pain, pressure, palpitations, shortness of breath, PND, pre-syncope, or syncope. He continues to report improvement in his legs. Labs, vitals, diagnostics, telemetry and documentation reviewed. Telemetry reviewed showing Paced rhythm rates 70's. Rare ectopy consisting of a few 3 and 4 beat run of non-sustained VT. -430cc fluid balance Review of Systems Review of Systems: All systems reviewed & are unremarkable except as noted in HPI & below Physical Exam Constitutional: well developed and well nourished; no acute distress Neck: normal visual inspection and trachea midline Respiratory: normal respiratory effort; no respiratory distress, no labored breathing and no cough Auscultation: + diminished lung sounds (bilateral bases ); no crackles, no rales, no rhonchi and no wheezes Cardiovascular: Rate/Rhythm: regular rate and regular rhythm Heart Sounds: normal S1, normal S2 and + murmur (+1/6 Systolic murmur) Vessels: no JVD Extremities: + edema (+1 BLE, And Chronic lymphedema of the LUE) Skin: + erythema (bilateral lower extremities. 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7 (3.5-5.1) mmol/L Chloride 106 (98-107) mmol/L Carbon Dioxide 28 (21-32) mmol/L BUN 53 H (6-23) mg/dl Creatinine 2.49 H (0.6-1.4) mg/dl Glucose 103 H (70-99(Fasting)) mg/dl Calcium 8.0 L (8.6-10.3) mg/dl Intake and Output 10/28/23 10/29/23 10/29/23 22:59 06:59 14:59 Intake Total 170 / 270 Output Total 700 / 700 Balance -530 / -430 Intake: Oral 170 / 170 Output: Urine Amount (Catheter) 700 / 700 Aguilar/Indwelling 700 / 700 Other: Weight 91.8 kg (2) Cellulitis Laterality: unspecified laterality Site of cellulitis: extremity Site of cellulitis of extremity: lower extremity Qualified Code(s): L03.119 - Cellulitis of unspecified part of limb
[2023-10-29] MEDS: BUMETANIDE 1 MG in SYRINGE 0 ML IV ONE (14:34)
--- NOTE | 2023-10-29 15:24 | Hospitalist Progress Note ---
Date of Service October 29, 2023 Assessment & Plan (1) Acute on chronic combined systolic (congestive) and diastolic (congestive) heart failure: Plan: Was sent from the wound care clinic due to multiple issues including bilateral lower extremity cellulitis, multiple falls at home, and auditory hallucinations. History of Enterobacter cloacae. Acute on chronic HFrEF, POA - Suspect main contributor to his increased LE edema was medication nonc ompliance at home in light of recently increased Lasix to 40mg BID last inpatient stay. > Echo at that time showed LV systolic function mildly reduced, EF 40-45%. - Continue Bumex 1 mg IV BID today. Plan to transition to Bumex 2 mg PO daily tomorrow. Continue close monitoring of daily weights, renal function, electrolytes and Strict I&O. > Appears improved with Bumex and suspect better absorption/bioavailability - Plan for Dveine catheter to be removed this evening, 10/28. - Follows with [facility] cardiology, will need close outpatient follow-up with them, and would likely benefit from CHF clinic follow-up upon discharge. - Continue 2L fluid restriction, 2gm sodium restriction. - Patient is agreeable to home health. Accepted with [facility] services. (2) Cellulitis: Plan: Sent by wound clinic for concerns of such increased LE edema/?infection. > Hx bilateral GSV ablation with Dr Kendall earlier this year. - Due to concern for his ICD becoming infected if this is cellulitis, patient was on Zosyn. This was changed to doxycycline on 10/27, last day of antibiotics 11/01/2023. > Can continue empiric antibiotics, however, I suspect this is more likely due to volume overload than infection. - Continue wound clinic follow-up on discharge. - animal cop discharge instructions: 2 open areas on bilateral lower extremities, wash/rinse/dry legs. Clean wounds with saline. Cover open areas with Aquacel Ag, ABD and secure with Kerlix. Change every other day and as needed for drainage. (3) Hallucinations: Plan: Reported recent auditory hallucinations of voices are arguing with him, confirms there is no one in his home when this happens. He does have stressors with parents will/house for niece etc and needing legal assistance reported - No focal neuro defects on exam - CT of the head and brain without contrast is negative for acute intracranial findings. - Fall/aspiration precautions, bed alarm No reported hallucinations during evaluation since admission, will continue to monitor (4) Elevated troponin: Plan: Initial high-sensitivity troponin elevated 57, repeat 56.1. - Denies CP. Suspect this was due to demand ischemia in setting of acute on chronic CHF as well as possible infection. - No acute ST segment / T wave changes noted on admission EKG. (5) Falling: Plan: Frequent falling at home, CT head with scalp swelling/no acute process - Suspect possible infection but also noncompliance with diuretics and acute on chronic heart failure - Lasix as above for diuresis, therapy evals - B12 low normal/replacement ordered. TSH WNL. Patient does not appear to be able to safely care for himself at this time as his hygiene is very poor, he appears disheveled on exam however he is hopeful for home - Patient continues to refuse rehab upon discharge. He is agreeable to home health services. (6) Atrial fibrillation: Plan: Currently in a paced rhythm Continue amiodarone, apixaban, atorvastatin, Jardiance, metoprolol succinate (7) Stage 4 chronic kidney disease: Plan: Cr slight elevation on admission, ?infection vs volume overload. - Home lisinopril on hold for now while diuresing and prevention of hypotension or worsening kidney function but may be able to resume to help w/ CHF as above however will hold off for now > May need to stop with his CKD and utilize diuretics with Bumex as above - K stable Renal dose meds/avoid nephrotoxins as able Recommend nephrology follow-up on discharge given CKD IV for ongoing monitoring. (8) B12 deficiency: Plan: Vit B12 at 287 on 10/23 - PO replacement started and can continue at discharge Plan Discussed discharge planning with case management -- accepted with [facility] services. VTE PPx: Eliquis BID CODE STATUS: Full code Recommend close outpatient follow-up with [facility] cardiology, establish care with CHF clinic, nephrology follow-up, wound clinic follow-up on discharge. Admission and Anticipated Discharge Date Admission Date: October 22, 2023 Subjective Patient seen and evaluated in bedside chair. He reports that he is feeling well. He notes that his legs continue to feel better. He was asking for more water, and I educated him about the fluid restriction. We discussed the plan of transitioning to oral Bumex tomorrow and removing his Devine catheter this evening. Patient is hopeful that he can be discharged tomorrow, 10/29. He has no additional complaints or concerns at this time. Physical Exam Physical Exam: General: No acute distress, nondiaphoretic, well-nourished, unkempt. Skin: 1+ Bilateral lower extremity edema. Chronic LUE lymphedema. Erythema multiple scabbed areas on lower extremities bilaterally, improving. Cardiac: Regular rate and rhythm without murmurs gallops or rubs. Pulm: Breath sounds diminished at bases but clear to auscultation bilaterally without wheezes, rales or rhonchi. No respiratory distress. 95% on room air. Abdominal: Soft, nontender, nondistended. Bowel sounds present. : Devine draining clear yellow urine. Neuro: A&O x3. No focal neurological deficits. Poor insight at times regarding medical care. Results & Data Results & Data Vital Signs (Past 12 Hours) Vital Signs Temp Pulse Pulse Resp BP Pulse Ox O2 Del Method 10/29/23 14:25 75 10/29/23 12:13 36.6 C 72 18 104/68 96 Room Air 10/29/23 07:34 36.5 C 75 16 112/74 96 Room Air 10/29/23 07:23 75 Laboratory Results Reviewed CBC Reviewed BMP PG Care Time/CCT Total # of Minutes Spent Total Time Spent with Patient: Total time spent is greater than 50% in coordination of care (as documented) at patient's floor/unit and/or counseling patient: Coding Level of Care Code 01514 SUB INP/OBS CARE 2/35MIN Diagnoses Acute on chronic combined systolic (congestive) and diastolic (congestive) heart failure I50.43 Cellulitis L03.119 Laterality: unspecified laterality Site of cellulitis: extremity Site of cellulitis of extremity: lower extremity Hallucinations R44.3 Elevated troponin R77.8 Falling R29.6 Longstanding persistent atrial fibrillation I48.11 Atrial fibrillation type: longstanding persistent Stage 4 chronic kidney disease N18.4 B12 deficiency E53.8 (2) Cellulitis Laterality: unspecified laterality Site of cellulitis: extremity Site of cellulitis of extremity: lower extremity Qualified Code(s): L03.119 - Cellulitis of unspecified part of limb (6) Atrial fibrillation Atrial fibrillation type: longstanding persistent Qualified Code(s): I48.11 - Longstanding persistent atrial fibrillation
--- NOTE | 2023-10-30 15:14 | Cardiology Progress Note ---
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 - Devine removed evening of 10/29/23 and states he is voiding spontaneously -Ambulating to bathroom with walker -Complete course of oral doxycycline for cellulitis, last dose on 11/01/23 -DC on bumex 2 mg PO daily rather than furosemide 40 mg PO BID. 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 -Await chemistry panel results . If stable OK for discharge from cardiac perspective. -Patient declines rehab. Home with home health. -Prognosis is poor. -Cardio dc appointment in 1-3 weeks requested at [facility]. -Discussed wt Davidson Paez PA-C by phone for the purpose of coordination of care. - Admission and Anticipated Discharge Date Admission Date: October 22, 2023 Subjective Patient seen in cardiology follow up. Denies acute complaints. Telemetry reveals AV sequential paced rhythm without recurrent NSVT. Physical Exam Constitutional: + cachectic (upper body wasting) Respiratory: normal respiratory effort, lungs clear to auscultation Cardiovascular: Rate/Rhythm: regular rate and regular rhythm; not tachycardic Heart Sounds: normal S1 and normal S2; no murmur Extremities: + edema (1+ LE edema, left arm with chronic lymphedema pattern ) Gastrointestinal (Abdomen): normal bowel sounds, soft, nontender, no hepatosplenomegaly Neurologic: PERRL, EOMI, accommodation nl, no face palsy, no dysarthria Results & Data Vital Signs (Past 12 Hours) Vital Signs Pulse 10/30/23 14:49 75 10/30/23 07:00 75 (2) Cellulitis Laterality: unspecified laterality Site of cellulitis: extremity Site of cellulitis of extremity: lower extremity Qualified Code(s): L03.119 - Cellulit is of unspecified part of limb
[2023-10-30] MEDS: BUMETANIDE 1 MG TAB PO SCH (15:45)
[2023-10-30 18:09] LABS: BUN Creatinine Ratio 23.1 (10-20); Calcium 8.6 mg/dl (8.6-10.3); Creatinine Clr Calc Pharmacy 24.1 ml/min; Est GFR (African American) 25.1 ml/min; Est GFR (Non-African American) 21.7 ml/min; Potassium 3.8 mmol/L (3.5-5.1)
[2023-10-30 18:10] LABS: Hematocrit (blood only) 34.7 % (42.0-52.0); Mean Corpuscular Hemoglobin 28.1 pg (25.0-34.0); Mean Corpuscular Hgb Conc 31.7 g/dL (32.0-36.0); Mean Corpuscular Volume 88.5 fL (80.0-100.0); Mean Platelet Volume 11.6 fL (9.4-12.4); Platelet Count 236 K/uL (130-400); RDW Coefficient of Variation 17.1 % (11.5-14.5); RDW Standard Deviation 55.2 fL (36.4-46.3); Red Blood Count 3.92 M/uL (4.70-6.10); White Blood Count 6.08 K/ul (4.8-10.8)
--- NOTE | 2023-10-30 18:26 | Hospitalist Progress Note ---
Date of Service October 30, 2023 Assessment & Plan (1) Acute on chronic combined systolic (congestive) and diastolic (congestive) heart failure: Plan: Was sent from the wound care clinic due to multiple issues including bilateral lower extremity cellulitis, multiple falls at home, and auditory hallucinations. History of Enterobacter cloacae. Acute on chronic HFrEF, POA - Suspect main contributor to his increased LE edema was medication nonc ompliance at home in light of recently increased Lasix to 40mg BID last inpatient stay. > Echo at that time showed LV systolic function mildly reduced, EF 40-45%. - Bumex 2 mg PO daily. Continue close monitoring of daily weights, renal function, electrolytes and Strict I&O. > Appears improved with Bumex and suspect better absorption/bioavailability. > Bumex held for 10/30 AM to monitor labs prior to resuming it in setting of worsening kidney function. > BUN 60 and Cr 2.60 on 10/29. - Devine catheter removed 10/28. Voiding without problem. - Follows with [facility] cardiology, will need close outpatient follow-up with them, and would likely benefit from CHF clinic follow-up upon discharge. - Continue 2L fluid restriction, 2gm sodium restriction. - Patient is agreeable to home health. Accepted with [facility] services. (2) Cellulitis: Plan: Sent by wound clinic for concerns of such increased LE edema/?infection. > Hx bilateral GSV ablation with Dr Kendall earlier this year. - Due to concern for his ICD becoming infected if this is cellulitis, patient was on Zosyn. This was changed to doxycycline on 10/27, last day of antibiotics 11/01/2023. > Can continue empiric antibiotics, however, I suspect this is more likely due to volume overload than infection. - Continue wound clinic follow-up on discharge. 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 Clean wounds with saline. Cover open areas with Aquacel Ag, ABD and secure with Kerlix. Change every other day and as needed for drainage. (3) Hallucinations: Plan: Reported recent auditory hallucinations of voices are arguing with him, confirms there is no one in his home when this happens. He does have stressors with parents will/house for niece etc and needing legal assistance reported - No focal neuro defects on exam - CT of the head and brain without contrast is negative for acute intracranial findings. - Fall/aspiration precautions, bed alarm No reported hallucinations during evaluation since admission, will continue to monitor (4) Elevated troponin: Plan: Initial high-sensitivity troponin elevated 57, repeat 56.1. - Denies CP. Suspect this was due to demand ischemia in setting of acute on chronic CHF as well as possible infection. - No acute ST segment / T wave changes noted on admission EKG. (5) Falling: Plan: Frequent falling at home, CT head with scalp swelling/no acute process - Suspect possible infection but also noncompliance with diuretics and acute on chronic heart failure - Lasix as above for diuresis, therapy evals - B12 low normal/replacement ordered. TSH WNL. Patient does not appear to be able to safely care for himself at this time as his hygiene is very poor, he appears disheveled on exam however he is hopeful for home - Patient continues to refuse rehab upon discharge. He is agreeable to home health services. (6) Atrial fibrillation: Plan: Currently in a paced rhythm Continue amiodarone, apixaban, atorvastatin, Jardiance, metoprolol succinate (7) Stage 4 chronic kidney disease: Plan: Cr slight elevation on admission, ?infection vs volume overload. - Home lisinopril on hold for now while diuresing and prevention of hypotension or worsening kidney function but may be able to resume to help w/ CHF as above however will hold off for now > May need to stop with his CKD and utilize diuretics with Bumex as above - K stable Renal dose meds/avoid nephrotoxins as able Recommend nephrology follow-up on discharge given CKD IV for ongoing monitoring. (8) B12 deficiency: Plan: Vit B12 at 287 on 10/23 - PO replacement started and can continue at discharge Plan Discussed case with cardiology Discussed discharge planning with case management --case management has contacted office of aging to evaluate the patient at home. VTE PPx: Eliquis BID CODE STATUS: Full code Recommend close outpatient follow-up with [facility] cardiology, establish care with CHF clinic, nephrology follow-up, wound clinic follow-up on discharge. Admission and Anticipated Discharge Date Admission Date: October 22, 2023 Subjective Patient seen and evaluated at bedside in the early afternoon. He reports that he is feeling well and that cardiology cleared him for discharge. I personally spoke with Dr. Maria Stein from cardiology who stated the patient could be discharged if his kidney function improved on his lab work. Unfortunately however given the EMR shutdown, the lab has been behind on posting results today. I was contacted by nursing in the evening that the patient was threatening to leave AMA and getting agitated because he was "tired of waiting around and having people lied to him." I went down and talked with the patient again and informed him that it is important to review his labs before discharge, and asked for patience as today has been unexpected and adjustments have had to be made, to which the patient responded "no." After informing the patient that if he leaves [place], the home health agency may no longer except him in which case the office of aging will have to be contacted, patient agreed to stay the night. Physical Exam Physical Exam: General: No acute distress, nondiaphoretic, well-nourished, unkempt. Skin: 1+ Bilateral lower extremity edema. Chronic LUE lymphedema. Erythema multiple scabbed areas on lower extremities bilaterally, improving. Cardiac: Regular rate and rhythm without murmurs gallops or rubs. Pulm: Breath sounds diminished at bases but clear to auscultation without wheezes, rales or rhonchi. No respiratory distress. 98% on room air. Abdominal: Soft, nontender, nondistended. Bowel sounds present. : Devine draining clear yellow urine. Neuro: A&O x3. No focal neurological deficits. Poor insight at times regarding medical care. Results & Data Results & Data Vital Signs (Past 12 Hours) Vital Signs Pulse 10/30/23 14:49 75 10/30/23 07:00 75 Laboratory Results Reviewed CBC Reviewed BMP PG Care Time/CCT Total # of Minutes Spent Total Time Spent with Patient: Total time spent is greater than 50% in coordination of care (as documented) at patient's floor/unit and/or counseling patient: Coding Level of Care Code 43731 SUB INP/OBS CARE 3/50MIN Diagnoses Acute on chronic combined systolic (congestive) and diastolic (congestive) heart failure I50.43 Cellulitis L03.119 Laterality: unspecified laterality Site of cellulitis: extremity Site of cellulitis of extremity: lower extremity Hallucinations R44.3 Elevated troponin R77.8 Falling R29.6 Longstanding persistent atrial fibrillation I48.11 Atrial fibrillation type: longstanding persistent Stage 4 chronic kidney disease N18.4 B12 deficiency E53.8 (2) Cellulitis Laterality: unspecified laterality Site of cellulitis: extremity Site of cellulitis of extremity: lower extremity Qualified Code(s): L03.119 - Cellulitis of unspecified part of limb (6) Atrial fibrillation Atrial fibrillation type: longstanding persistent Qualified Code(s): I48.11 - Longstanding persistent atrial fibrillation
[2023-10-30 20:05] LABS: Albumin Globulin Ratio 0.8 (0.9-2); Albumin Level 3.1 gm/dl (3.4-5.0); BUN Creatinine Ratio 22.7 (10-20); Bilirubin,Total 0.5 mg/dl (0.2-1.0); Calcium 8.2 mg/dl (8.6-10.3); Creatinine Clr Calc Pharmacy 25.4 ml/min; Est GFR (African American) 26.7 ml/min; Est GFR (Non-African American) 23.1 ml/min; Globulin 3.7 gm/dl (2.5-4.0); Potassium 3.5 mmol/L (3.5-5.1); Total Protein 6.8 gm/dl (6.0-8.3)
[2023-10-31 01:43] LABS: Hematocrit (blood only) 30.9 % (42.0-52.0); Hemoglobin 9.8 g/dl (14.0-18.0); Mean Corpuscular Hemoglobin 28.2 pg (25.0-34.0); Mean Corpuscular Hgb Conc 31.7 g/dL (32.0-36.0); Mean Corpuscular Volume 88.8 fL (80.0-100.0); RDW Coefficient of Variation 17.1 % (11.5-14.5); RDW Standard Deviation 55.6 fL (36.4-46.3); Red Blood Count 3.48 M/uL (4.70-6.10); White Blood Count 5.41 K/ul (4.8-10.8)
[2023-10-31 01:44] LABS: Mean Platelet Volume 11.8 fL (9.4-12.4); Platelet Count 221 K/uL (130-400)
[2023-10-31 06:56] LABS: Hemoglobin 10.7 g/dl (14.0-18.0); Mean Corpuscular Hemoglobin 28.6 pg (25.0-34.0); Mean Corpuscular Hgb Conc 32.4 g/dL (32.0-36.0); Mean Corpuscular Volume 88.2 fL (80.0-100.0); Mean Platelet Volume 11.8 fL (9.4-12.4); Platelet Count 236 K/uL (130-400); RDW Standard Deviation 54.3 fL (36.4-46.3); Red Blood Count 3.74 M/uL (4.70-6.10); White Blood Count 5.43 K/ul (4.8-10.8)
[2023-10-31 07:13] LABS: BUN Creatinine Ratio 24.3 (10-20); Calcium 8.5 mg/dl (8.6-10.3); Creatinine Clr Calc Pharmacy 24.9 ml/min; Est GFR (African American) 26.2 ml/min; Est GFR (Non-African American) 22.6 ml/min; Potassium 3.8 mmol/L (3.5-5.1)
[2023-10-31] MEDS ORDERED: BUMETANIDE 1 MG TAB PO SCH (09:15)
--- NOTE | 2023-10-31 17:19 | Discharge Summary ---
Discharge Summary Date of Service October 31, 2023 Principal Dx & Hospital Course #1 = Principal Diagnosis (1) Acute on chronic combined systolic (congestive) and diastolic (congestive) heart failure: Was sent from the wound care clinic due to multiple issues including bilateral lower extremity cellulitis, multiple falls at home, and auditory hallucinations. History of Enterobacter cloacae. Acute on chronic HFrEF, POA - Suspect main contributor to his increased LE edema was medication noncompliance at home in light of recently increased Lasix to 40mg BID last inpatient stay. > Echo at that time showed LV systolic function mildly reduced, EF 40-45%. - Devine catheter removed 10/28. Voiding without problem. - Continue Bumex 1 mg PO daily. > Appears improved with Bumex and suspect better absorption/bioavailability. - Follows with [facility] cardiology -- follow-up appointment scheduled for 11/05/23. > Recommend establishing care with [facility] CHF clinic. - Continue 1800 mL fluid restriction, 2gm sodium restriction. - Patient discharged with [facility] home health services on 10/31/2023. (2) Cellulitis: Sent by wound clinic for concerns of such increased LE edema/?infection. > Hx bilateral GSV ablation with Dr Kendall earlier this year. - Due to concern for his ICD becoming infected if this is cellulitis, patient was on Zosyn. This was changed to doxycycline on 10/27, last day of antibiotics 11/01/2023. > Can continue empiric antibiotics, however, I suspect this is more likely due to volume overload than infection. - Continue wound clinic follow-up on discharge. - lead instructor/flight attendant discharge instructions: 2 open areas on bilateral lower extremities, wash/rinse/dry legs. Clean wounds with saline. Cover open areas with Aquacel Ag, ABD and secure with Kerlix. Change every other day and as needed for drainage. (3) Falling: Frequent falling at home, CT head with scalp swelling/no acute process - Suspect possible infection but also noncompliance with diuretics and acute on chronic heart failure - Lasix as above for diuresis, therapy evals - B12 low normal/replacement ordered. TSH WNL. Patient does not appear to be able to safely care for himself at this time as his hygiene is very poor, he appears disheveled on exam however he is hopeful for home - Patient continued to refuse rehab upon discharge. He was agreeable to home health services. [facility] of aging was contacted by case management for home evaluation. (4) Stage 4 chronic kidney disease: Cr slight elevation on admission, ?infection vs volume overload. - Lisinopril held during hospitalization and continued to be held on discharge until follow-up appointment with cardiology to prevent hypotension or worsening kidney function. > May need to stop with his CKD and utilize diuretics with Bumex as above - K stable Renal dose meds/avoid nephrotoxins as able Recommend nephrology follow-up on discharge given CKD IV for ongoing monitoring. (5) Hallucinations: Reported recent auditory hallucinations of voices are arguing with him, confirms there is no one in his home when this happens. He does have stressors with parents will/house for niece etc and needing legal assistance reported - No focal neuro defects on exam - CT of the head and brain without contrast is negative for acute intracranial findings. - Fall/aspiration precautions, bed alarm No reported hallucinations during evaluation since admission. (6) Elevated troponin: Initial high-sensitivity troponin elevated 57, repeat 56.1. - Denies CP. Suspect this was due to demand ischemia in setting of acute on chronic CHF as well as possible infection. - No acute ST segment / T wave changes noted on admission EKG. (7) Atrial fibrillation: Currently in a paced rhythm Continue amiodarone, apixaban, atorvastatin, Jardiance, metoprolol succinate (8) B12 deficiency: Vit B12 at 287 on 10/23 - PO replacement started and continued at discharge Plan CODE STATUS: Full code Recommend close outpatient follow-up with [facility] cardiology, establish care with CHF clinic, nephrology follow-up, wound clinic follow-up on discharge. Notes For Next Care Provider Medication Changes From Visit Patient discharged on Bumex 1 mg p.o. daily. Doxycycline twice daily, last dose 11/01/2023 Started vitamin B12 supplementation 500 mcg p.o. 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 The patient was seen by his PCP for the symptoms on 10/19/2023 and was prescribed a course of doxycycline and scheduled for wound care clinic appointment, it does not appear that he picked up the prescription for doxycycline.He remained stable in the ED. Labs were significant for a creatinine of 2.27 (baseline appears to be near 2.0), lactate of 2.4, mag of 2.5, total bili of 1.4, direct bili of 0.5, high-sensitivity troponin of 57. CT of the head and brain without contrast noted mild left periorbital soft tissue swelling but was otherwise negative for acute findings. Chest x-ray was read as cardiomegaly with mild congestive changes and a trace right pleural effusion. This appears similar to prior study. Prior to admission the patient was given dose of cefepime, 500 mL NSS, and 40 mg IV Lasix. Patient was sitting in bed in no acute distress at the time of exam, history was somewhat limited due to his acute illness. He confirms that his lower extremities have been swollen and red for "a while" he was unable to tell me how long they have been getting progressively worse. He does confirm that he has been having multiple falls recently with his last being earlier this afternoon. He confirms that when he fell he did hit the right side of his forehead but denies losing consciousness. He states that he tripped on the corner of his table causing him to lose his balance and fall. He denies any other pain besides his forehead at this time. When asked if he has been having any hallucinations he confirms that he has. When asked what kind he has been having he states that he has been arguing with people who are not there. When asked if he has any friends or family that helped to come care for him he states, "my family because sometimes but I always tell them I am fine because I do not want to bother them". Denies recent fever, chills, chest pain, shortness of breath, abdominal pain, nausea/vomiting, dysuria, hematuria, diarrhea, melena. Please refer to Dr. Altamirano's attestation for any changes to the treatment plan Admission Exam Per Admitting Provider Physical Exam: General: In no acute distress, stated age, disheveled appearing with very poor hygiene, non-toxic appearing HEENT: Mild swelling noted above the right eyebrow from fall earlier today, no scleral icterus, pupils around round, symmetrical, and reactive to light, moist mucus membranes, trachea midline, no thyromegaly Chest/Pulm: No respiratory distress, symmetrical chest expansion, decreased breath sounds in the BL lower lung us, otherwise CTA Cardiac: RRR, no murmurs noted Abdomen: Negative for ascites and bruising, normoactive bowel sounds, soft, non- tender to palpation throughout Musculoskeletal: No other acute trauma on exam besides right forehead swelling, patient with intact Extremities: Patient with LUE lymphedema as per previous admissions, intact left radial pulse, see pictures of the BL LE's below for further details, intact DP and PT pulses in the LE's Skin: See pictures attached below Neuro: Alert and oriented to person, place, month, year, and president, no focal defects, CN II-XII tested and intact, finger to nose test negative, no tremors noted Psych: No acute distress, calm and cooperative during the exam Discharge Exam General: No acute distress, nondiaphoretic, well-nourished, unkempt. Skin: 1+ Bilateral lower extremity edema. Chronic LUE lymphedema. Erythema multiple scabbed areas on lower extremities bilaterally, improving. Cardiac: Regular rate and rhythm without murmurs gallops or rubs. Pulm: Breath sounds diminished at bases but clear to auscultation without wh eezes, rales or rhonchi. No respiratory distress. 97% on room air. Abdominal: Soft, nontender, nondistended. Bowel sounds present. Neuro: A&O x3. No focal neurological deficits. Poor insight at times regarding medical care. Updated Medication List Medication Instructions Recorded Confirmed Type lisinopril 20 mg tablet 10 mg (1/2 x 20 mg) PO DAILY #180 11/05/22 10/22/23 Rx tabs omeprazole 20 mg capsule,delayed 20 mg PO DAILY #90 caps 01/28/23 10/22/23 Rx release metoprolol succinate 50 mg capsule 50 mg PO DAILY 06/17/23 10/22/23 History sprinkle, ext. release 24 hr Left Upper Extremity Compression #1 ea 07/03/23 09/28/23 Rx Sleeve apixaban 2.5 mg tablet (Eliquis) 2.5 mg PO AMHS 08/14/23 10/22/23 History atorvastatin 80 mg tablet 80 mg PO HS #90 tabs 09/15/23 10/22/23 Rx bupropion HCl 150 mg tablet,12 hr 150 mg PO BID #180 ea 09/15/23 10/22/23 Rx sustained-release levothyroxine 50 mcg tablet 50 mcg PO DAILY #90 tabs 09/15/23 10/22/23 Rx (Synthroid) amiodarone 200 mg tablet 400 mg (2 x 200 mg) PO QAM #180 09/16/23 10/22/23 Rx tabs empagliflozin 10 mg tablet 10 mg PO DAILY #90 tabs 09/24/23 10/22/23 Rx (Jardiance) folic acid 800 mcg tablet 800 mcg PO QAM #90 tabs 10/14/23 10/22/23 Rx galantamine 8 mg 24 hr 8 mg PO QAM #30 caps 10/14/23 10/22/23 Rx capsule,extended release bumetanide 1 mg tablet 1 mg PO QAM #30 tabs 10/31/23 Rx cyanocobalamin (vitamin B-12) 500 500 mcg PO QAM #30 tabs 10/31/23 Rx mcg tablet doxycycline hyclate 100 mg capsule 100 mg PO BID #3 caps 10/31/23 Rx Hospital Stay Data Consultations 10/22/23 16:19 ED Decision to Admit Stat 10/25/23 08:04 Consult Cardiology Routine Diagnostic Imagining Performed Chest X-Ray 10/22/23 14:58 XR chest 1V portable HISTORY: Sepsis COMPARISON: Chest 08/14/2023. FINDINGS: Slightly rotated study. No pneumothorax. The heart remains enlarged. There are poststernotomy changes, left-sided pacemaker/defibrillator, and a cardiac valve prosthesis again noted. There is mild central pulmonary vascular congestion without overt edema. Trace right pleural effusions is again noted. There are old, healed left-sided rib fractures. A few bibasilar linear densities favor subsegmental atelectasis. No new focal lung consolidations to suggest a pneumonia. IMPRESSION: Cardiomegaly with mild congestive change and a trace right pleural effusion. This is similar to the prior study. ACT 112: Negative or not required by law. Electronically signed by: Mendoza Uriostegui M.D. 10/22/2023 3:[address] 10/22/23 15:[address] DOSE: 953.61 mGy.cm HISTORY: falling, trauma TECHNIQUE: Multiaxial CT images of the head were performed without the use of intravenous contrast. Automated exposure control was utilized for this study. A dose lowering technique was utilized adhering to the principles of ALARA. Comparison: Head CT 09/02/2023. Findings: The paranasal sinuses and mastoid air cells are clear. The calvarium and skull base are intact. The ventricles and sulci are within normal limits. There is no mass, hematoma, midline shift, or acute infarct. Mild left periorbital soft tissue swelling. Impression: No acute intracranial abnormality. Mild left periorbital soft tissue swelling. ACT 112: Negative or not required by law. Electronically signed by: Mendoza Uriostegui M.D. 10/22/2023 4:18 PM Pending Results Patient Have Any Pending Studies at Discharge: No Discharge Instructions Given to Patient (Per Discharging Provider) Mr. Rogers, You were admitted to the hospital due to an acute heart failure exacerbation and cellulitis of your lower legs. You have been set up with home health services prior to discharge. Upon discharge from the hospital: * Take Bumex 1 mg by mouth daily. This is a diuretic which will help with the swelling in your extremities. * Take doxycycline until tomorrow, 11/01/2023. This is an oral antibiotic to treat the cellulitis (skin infection) in your lower legs. You can take 1 dose tonight (10/30), and then a morning and evening dose tomorrow. Then your antibiotic course will be completed. * Follow-up with cardiology. Your appointment is scheduled for 11/05/2023 at 9:20 AM. * Follow-up with urology. Your appointment is scheduled for 11/05/2023 at 3:00 PM. * Do not take your lisinopril until your follow-up appointment with cardiology. Your blood pressure has remained stable without taking the lisinopril while in the hospital. Also, taking this can cause low blood pressure (hypotension) or worsen your kidney function. * Follow a low salt (less than 2 g/day) diet. Follow in 1800 mL fluid restrictionthis is about 7 cups/day. * Continue to follow-up with the wound care clinic. Please return to the hospital if you experience any of the following: Fever of 100.5 F or higher, worsened redness/pain/swelling of your extremities, discharge or pus draining from your legs, shortness of breath, chest pain, difficulty breathing, lightheadedness, dizziness, or passing out. It was a pleasure taking care of you while you were in the hospital, Breanne Paez PA-C Call your Primary Care doctor if any of the following symptoms or problems start or get worse: * Shortness of breath or difficulty breathing * Wake up at night short of breath * Chest pain * Cough * Swelling of your hands, feet, or legs * More fatigued or tired with your normal activity * Palpitations - sudden fast heart beats WEIGHT * Weigh yourself every morning after using the bathroom. * Use the same scale. * Wear the same amount of clothing. * Write your weight down on a chart. * Call your Primary Care doctor if you gain more than 2-3 pounds in 1-2 days. MEDICATIONS * Use this discharge instruction sheet for medication instructions. * Take your medications at the time your doctor ordered. * Do not skip a dose of your medicines. * If you miss a dose of medicine, take it as soon as possible, but DO NOT DOUBLE A DOSE. * Read your medicine information when you get home. * Know all of the side effects of your medicine. If in doubt, ask your pharmacist * Call your Primary Care doctor's office if you have any side effects. * Be sure all of your doctors know what medicine and herbs you take (including cold, flu, and herbal medicine). Take the following with you to your follow-up doctor appointments: * Weight Chart * Medication List * List of questions Do not drink excessive alcohol, beer or wine. Total Time Total Time Spent Total Time Spent (In Minutes): Greater than 30 minutes spent completing this discharge process including direct patient care, medication reconciliation, documentation, review of labs and images, and coordination of care. Coding Level of Care Code 10258 INP/OBS DISCH >30 MIN Diagnoses Acute on chronic combined systolic (congestive) and diastolic (congestive) heart failure I50.43 Cellulitis L03.119 Laterality: unspecified laterality Site of cellulitis: extremity Site of cellulitis of extremity: lower extremity Falling R29.6 Stage 4 chronic kidney disease N18.4 Hallucinations R44.3 Elevated troponin R77.8 Longstanding persistent atrial fibrillation I48.11 Atrial fibrillation type: longstanding persistent B12 deficiency E53.8
== END 2023-10-31 14:23 | disposition home health service (06) | DRG 291 ==
LOC: ED 14:54 → SUATTDRO 16:41 → 2W 16:41

== ENCOUNTER 2023-12-06 12:16 | Inpatient (IN) ==
--- NOTE | 2023-12-06 12:33 | Emergency Department Note ---
Impression & Plan Fall, Rhabdomyolysis, Elevated serum creatinine, Unable to care for self, Generalized weakness, Subcutaneous hematoma, Elevated troponin ED Provider Note HISTORY OF PRESENT ILLNESS: Patient is an 83-year-old male presenting after being found down. History is difficult, as the patient states that he was in a chair when he fell asleep and fell out of the chair. However, EMS was called to the patient's house after someone noticed him on the ground on his porch. Patient does not give a reliable history as to how he got onto his porch. He states that he tripped but then states that he fell out of the chair. He is on Eliquis. Denies any chest pain or shortness of breath. Denies any complaints on arrival to the emergency department. EMS does express that the patient's living conditions at his apartment are deplorable. Patient lives alone. ROS: as above PHYSICAL EXAM: Constitutional: Patient appears in no acute distress. HENT: Head: Normocephalic and atraumatic. Eyes: EOMI, PERRL. Pupils are 3 mm and reactive. Mouth/Throat: Mucous membranes moist. Neck: Trachea midline. Neck supple. No midline cervical spine tenderness to palpation. Cardiovascular: Paced rhythm. No murmurs, rubs or gallops. Intact distal pulses. Pulmonary/Chest: No respiratory distress. Breath sounds clear and equal bilaterally. No wheezes or rales. No chest wall tenderness to palpation. Abdominal: Abdomen soft, no tenderness, rebound or guarding. Musculoskeletal: No edema, tenderness or deformity noted. Lymphedema of bilateral lower extremities Skin: Warm and dry. No rash, erythema, pallor or cyanosis Psychiatric: Appropriate mood and affect for situation. Neurological: Alert and keenly responsive. CN II-XII grossly intact, moving all extremities equally and fully. GCS of 15. Patient is alert to person, place and time. MDM: - Vitals signs stable. - Patient alerted as a trauma activation prehospital, given his fall and anticoagulation use. On arrival to the ER, airway, breathing and circulation are intact. - History obtained via patient. History as above. - Chronic conditions affecting care: paroxysmal Afib (on Eliquis); HLD; lymphedema; HTN - Differential diagnoses include, but are not limited to: Intracranial hemorrhage; CVA; ACS; dysrhythmia; rib fractures; pneumothorax; UTI - Order placed for continuous cardiac monitoring. At this time, monitor showed rate of 75 bpm with paced rhythm, per my interpretation. - External medical records reviewed. Primary care visit note dated 11/16/2023 was reviewed. Patient was seen in clinic for hospital follow-up. He was admitted at that time for acute on chronic systolic and diastolic heart failure. - EKG interpreted by myself showed paced rhythm. Rate 75 bpm. - Laboratory workup interpreted by myself showed normal WBC; chronic anemia (Hgb 8.3); normal lactate; stable electrolytes; CKD (Cr 2.23); elevated CK (244); elevated troponin (29.7) - UA showed evidence of infection. Given 2g IV rocephin - CXR negative for pneumonia or obvious pneumothorax, per my interpretation. However, radiology reports concern for potential left posterior third rib fracture and a questionable left apical pneumo. - CT head wo contrast negative for acute intracranial pathology - CT cervical spine wo contrast negative for acute injury. - CT chest wo contrast negative for acute pathology. - CT abdomen/pelvis wo contrast showed severe body wall edema and noted to have an 8.8 cm right lateral hip subcutaneous hematoma. - Patient given 500 cc NS in ER. Patient has had no complaints of pain in the emergency department, so no pain medications have been ordered. - Significant concern about patient's safety at home, given the reported deplorable conditions. Office of aging has been contacted by case management. Given patient's laboratory and imaging findings, will admit to the hospital for further evaluation and management. - Discussion was had with shoe caser about patient's case and need for admission - Hospitalist consulted for admission - [facility] ASSESSMENT AND PLAN: Diagnosis: fall; generalized weakness; rhabdomyolysis; traumatic subcutaneous hematoma; unable to care for self; elevated troponin Plan: admit Past Med/Surg History Problem List (Updated 12/06/23 @ 15:15 by Lisa Roth MD) Elevated troponin (Acute) Subcutaneous hematoma (Acute) Generalized weakness (Acute) Unable to care for self (Acute) Elevated serum creatinine (Acute) Rhabdomyolysis (Acute) Fall (Acute) Recurrent falls Hematuria B12 deficiency S/P AVR (aortic valve replacement) HTN, goal below 140/80 Acute on chronic combined systolic (congestive) and diastolic (congestive) heart failure Anemia (Acute) Falling (Acute) Weakness (Acute) Venous ulcers of both lower extremities (Acute) Stage 4 chronic kidney disease Frequent falls (Acute) Stage III pressure ulcer of buttock (Acute) Venous ulcer of left leg Stage II pressure ulcer of right buttock (Acute) Lymphedema Implantable cardioverter-defibrillator (ICD) discharge Cognitive disorder Abnormal ankle brachial index Chronic acquired lymphedema (Chronic) Bilateral lower extremity edema (Acute) Venous stasis ulcers of both lower extremities (Acute) Mass of joint of left shoulder H/O prostate cancer Presence of combination internal cardiac defibrillator (ICD) and pacemaker Right ischial pressure sore, stage 1 Coronary artery disease (Chronic) Depression (Chronic) Disc degeneration, lumbar (Chronic) Pure hypercholesterolemia (Chronic) Prediabetes (Chronic) Medical History Acute on chronic HFrEF (heart failure with reduced ejection fraction) CKD (chronic kidney disease) Atrial fibrillation Acid reflux disease Hypothyroidism Ventricular tachyarrhythmia Subclavian vein obstruction PAF (paroxysmal atrial fibrillation) Dyslipidemia, goal LDL below 70 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 COVID-19 Ventricular tachycardia Thrombocytopenia New onset atrial fibrillation Encounter for pre-operative examination Left bundle branch block Acute pancreatitis Prostate cancer PVC (premature ventricular contraction) Hyperthyroidism Hypertension Hyperhomocystinemia History of snuff use Former smoker Difficulty reading due to visual problem Cervical radiculopathy 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, 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, clinical stage TIc Status post biopsies, biopsy stage TIIa Divine grade 3+3 Status post seed implant with cesium 131 as boost 12/08/2006 Status post completion of IMRT/IGRT 02/26/2007" Surgical History History of laparoscopic cholecystectomy (11/08/21) lap ish/ercp Nov 01 Chambers Status post aortic valve replacement with bioprosthetic valve H/O aortic valve repair H/O hernia repair Family History Mother Heart disease Brother Cancer Lung cancer Unknown Prostate cancer Father Prostate cancer Denies family history of Colon cancer Ovarian cancer Myocardial infarction Breast cancer Social History Smoking Status: Never smoker Tobacco Type: Cigarettes Age Started Using Tobacco: 8; Age Quit Using Tobacco: 75; packs per day: 2.5; Second Hand Exposure: No; Do You Dip or Chew Tobacco: No; Hx Alcohol Use: No Hx Substance Use: No Preferred Language: Mohawk Communication Ability: Effective Visual Impairment: No Limitations Hearing Ability: Use of Hearing Aid Design Leader Required: No Beliefs That Will Affect Care: None marital status: / Current Living Situation: Alone Current Living Situation Comment: lives at home alone with his cat current occupational status: retired How many Children do You have: 2 Feels Safe at Home: Yes Childhood Exposure to Second-Hand Smoke: Yes Diet: regular Diet Comment: regular caffeine: Yes during the past year weight has: remained stable Dental Care, Regularly: No Physical Activity Frequency: Does not Exercise Seatbelt Use: never Sunscreen Use: No Do you think of yourself as: straight/heterosexual Assistive Devices: Cane and Walker Allergies Allergies Allergy/AdvReac Type Severity Reaction Status Date / Time No Known Allergies Allergy Verified 12/02/23 14:28 Home Meds Previous Rx's Medication Instructions Recorded lisinopril 20 mg tablet 10 mg (1/2 x 20 mg) PO DAILY #180 11/05/22 tabs Left Upper Extremity Compression #1 ea 07/03/23 Sleeve atorvastatin 80 mg tablet 80 mg PO HS #90 tabs 09/15/23 bupropion HCl 150 mg tablet,12 hr 150 mg PO BID #180 ea 09/15/23 sustained-release levothyroxine 50 mcg tablet 50 mcg PO DAILY #90 tabs 09/15/23 (Synthroid) amiodarone 200 mg tablet 400 mg (2 x 200 mg) PO QAM #180 09/16/23 tabs folic acid 800 mcg tablet 800 mcg PO QAM #90 tabs 10/14/23 galantamine 8 mg 24 hr 8 mg PO QAM #30 caps 10/14/23 capsule,extended release apixaban 2.5 mg tablet (Eliquis) 2.5 mg PO AMHS #60 tabs 11/06/23 bumetanide 1 mg tablet 1 mg PO BID #60 tabs 11/06/23 cyanocobalamin (vitamin B-12) 500 500 mcg PO QAM #30 tabs 11/06/23 mcg tablet empagliflozin 10 mg tablet 10 mg PO DAILY #90 tabs 11/06/23 (Jardiance) ciprofloxacin HCl 500 mg tablet 500 mg PO DAILY #7 tabs 11/16/23 omeprazole 20 mg capsule,delayed See Rx Instructions .Route 12/04/23 release .COMPLEX #90 caps Results & Data (ED) Vital Signs Vital Signs - 24 hr 12/06/23 12:13 12/06/23 12:13 12/06/23 12:13 Temperature 36.6 C 36.6 C Temperature Source Oral Pulse Rate 78 78 Pulse Rate [Right Finger] Pulse Rate from SpO2 Sensor Pulse Rhythm Regular Pulse Rhythm [Right Finger] Pulse Strength Normal Pulse Strength [Right Finger] Respiratory Rate 20 18 Respiratory Effort / Characteristics Non-Labored Spontaneous Respiratory Depth Normal Respiratory Pattern Regular Blood Pressure 133/91 133/91 Blood Pressure [Right Arm] Blood Pressure Mean 105 Blood Pressure Mean [Right Arm] Blood Pressure Position Sitting Blood Pressure Position [Right Arm] Pulse Oximetry 90 93 93 Oxygen Delivery Method Room Air Room Air Room Air Sepsis Recent Fever Within 48 Hours No Sepsis New/Unexplained Change in Mental Status N/A Sepsis Action Taken by Nursing No Action Required 12/06/23 12:13 12/06/23 12:30 12/06/23 12:39 Temperature 36.6 C Temperature Source Oral Pulse Rate 78 75 Pulse Rate [Right Finger] 75 Pulse Rate from SpO2 Sensor 78 Pulse Rhythm Regular Pulse Rhythm [Right Finger] Regular Pulse Strength Pulse Strength [Right Finger] Normal Respiratory Rate 18 18 18 Respiratory Effort / Characteristics Non-Labored Spontaneous Respiratory Depth Normal Respiratory Pattern Regular Blood Pressure Blood Pressure [Right Arm] 132/91 Blood Pressure Mean Blood Pressure Mean [Right Arm] 104 Blood Pressure Position Blood Pressure Position [Right Arm] Sitting Pulse Oximetry 94 93 94 Oxygen Delivery Method Room Air Room Air Sepsis Recent Fever Within 48 Hours Sepsis New/Unexplained Change in Mental Status Sepsis Action Taken by Nursing 12/06/23 12:48 12/06/23 13:09 12/06/23 13:10 Temperature 36.8 C Temperature Source Oral Pulse Rate 75 75 Pulse Rate [Right Finger] 75 Pulse Rate from SpO2 Sensor 75 Pulse Rhythm Pulse Rhythm [Right Finger] Regular Pulse Strength Pulse Strength [Right Finger] Normal Respiratory Rate 18 18 Respiratory Effort / Characteristics Non-Labored Spontaneous Respiratory Depth Normal Respiratory Pattern Regular Blood Pressure Blood Pressure [Right Arm] 135/85 Blood Pressure Mean Blood Pressure Mean [Right Arm] 101 Blood Pressure Position Blood Pressure Position [Right Arm] Sitting Pulse Oximetry 93 96 Oxygen Delivery Method Room Air Sepsis Recent Fever Within 48 Hours Sepsis New/Unexplained Change in Mental Status Sepsis Action Taken by Nursing 12/06/23 13:23 12/06/23 13:27 12/06/23 13:33 Temperature Temperature Source Pulse Rate 75 75 Pulse Rate [Right Finger] Pulse Rate from SpO2 Sensor 75 75 Pulse Rhythm Pulse Rhythm [Right Finger] Pulse Strength Pulse Strength [Right Finger] Respiratory Rate 12 12 Respiratory Effort / Characteristics Respiratory Depth Respiratory Pattern Blood Pressure 132/91 Blood Pressure [Right Arm] Blood Pressure Mean 101 Blood Pressure Mean [Right Arm] Blood Pressure Position Blood Pressure Position [Right Arm] Pulse Oximetry 92 94 Oxygen Delivery Method Sepsis Recent Fever Within 48 Hours Sepsis New/Unexplained Change in Mental Status Sepsis Action Taken by Nursing 12/06/23 14:00 12/06/23 14:00 12/06/23 14:00 Temperature Temperature Source Pulse Rate 75 Pulse Rate [Right Finger] Pulse Rate from SpO2 Sensor 75 Pulse Rhythm Pulse Rhythm [Right Finger] Pulse Strength Pulse Strength [Right Finger] Respiratory Rate 10 L Respiratory Effort / Characteristics Respiratory Depth Respiratory Pattern Blood Pressure 138/92 138/92 Blood Pressure [Right Arm] Blood Pressure Mean 107 107 Blood Pressure Mean [Right Arm] Blood Pressure Position Blood Pressure Position [Right Arm] Pulse Oximetry 95 Oxygen Delivery Method Sepsis Recent Fever Within 48 Hours Sepsis New/Unexplained Change in Mental Status Sepsis Action Taken by Nursing Laboratory Data 12/06/23 12:29 12/06/23 12:29 Lab Results 12/06/23 12/06/23 12/06/23 Range/Units 12:29 12:37 13:18 WBC 8.90 (4.8-10.8) K/ul RBC 3.10 L (4.70-6.10) M/uL Hgb 8.3 L (14.0-18.0) g/dl POC Hgb 9.5 L (14.0-18.0) g/dl Hct 26.4 L (42.0-52.0) % POC Hct 28 L (42-52) % MCV 85.2 (80.0-100.0) fL MCH 26.8 (25.0-34.0) pg MCHC 31.4 L (32.0-36.0) g/dL RDW Std Deviation 54.1 H (36.4-46.3) fL RDW Coeff of Yony 17.7 H (11.5-14.5) % Plt Count 243 (130-400) K/uL MPV 11.9 (9.4-12.4) fL Immature Gran % (Auto) 0.4 % Neut % (Auto) 81.1 % Lymph % (Auto) 7.8 % Com[place] % (Auto) 9.9 % Eos % (Auto) 0.4 % Baso % (Auto) 0.4 % Neut # (Auto) 7.21 H (1.40-6.50) K/uL Lymph # (Auto) 0.69 L (1.20-3.40) K/uL [place] # (Auto) 0.88 H (0.11-0.59) K/uL Eos # (Auto) 0.04 (0.00-0.50) K/uL Baso # (Auto) 0.04 (0.00-0.20) K/uL Immature Gran # (Auto) 0.04 (0.01-0.20) K/uL PT 12.4 H (9.0-12.0) Seconds INR 1.2 H (0.9-1.1) POC Sodium 140 (135-144) mmol/L Sodium 138 (136-145) mmol/L POC Potassium 4.1 (3.3-5.0) mmol/L Potassium 4.1 (3.5-5.1) mmol/L POC Chloride 100 L (101-112) mmol/L Chloride 101 (98-107) mmol/L Carbon Dioxide 29 (21-32) mmol/L POC Total CO2 27 (24-31) mmol/L Anion Gap 8 (3-11) POC Anion Gap 18.0 (16-25) mmol/L POC BUN 47 H (7-18) mg/dl BUN 57 H (6-23) mg/dl Creatinine 2.23 H (0.6-1.4) mg/dl POC Creatinine 2.4 H (0.6-1.3) mg/dl Est Cr Clr Drug Dosing 28.7 ml/min Est GFR ( Amer) 30.0 ml/min Est GFR (Non-Af Amer) 25.9 ml/min BUN/Creatinine Ratio 25.6 H (10-20) Glucose 100 H (70-99(Fasting)) mg/dl POC Glucose (other) 96 (70-99) mg/dl Lactate 1.5 (0.4-2.0) mmol/L Calcium 8.5 L (8.6-10.3) mg/dl POC Ioniz Calcium Alyssa 1.07 L (1.12-1.32) mmol/l Total Bilirubin 1.1 H (0.2-1.0) mg/dl AST 31 (13-39) U/L ALT 26 (7-52) U/L Alkaline Phosphatase 182 H (34-104) U/L Total Creatine Kinase 244 H (30-223) U/L Troponin I High Sens 29.7 H (0-20) pg/ml Total Protein 7.2 (6.0-8.3) gm/dl Albumin 3.4 (3.4-5.0) gm/dl Globulin 3.8 (2.5-4.0) gm/dl Albumin/Globulin Ratio 0.9 (0.9-2) Urine Color Urine Appearance (Clear) Urine pH (4.5-7.5) Ur Specific Reasnor (1.000-1.030) Urine Protein (Negative) Urine Glucose (UA) (Negative) Urine Ketones (Negative) Urine Blood (Negative) Urine Nitrite (Negative) Urine Bilirubin (Negative) Urine Urobilinogen (Negative) Ur Leukocyte Esterase (Negative) Urine WBC (Auto) (0-5) /hpf Urine RBC (Auto) (0-2) /hpf U Hyaline Cast (Auto) (0-2) /lpf U Epithel Cells (Auto) (0-2) /hpf Urine Bacteria (Auto) (None Seen) 12/06/23 12/06/23 Range/Units 14:19 Unknown WBC (4.8-10.8) K/ul RBC (4.70-6.10) M/uL Hgb (14.0-18.0) g/dl POC Hgb (14.0-18.0) g/dl Hct (42.0-52.0) % POC Hct (42-52) % MCV (80.0-100.0) fL MCH (25.0-34.0) pg MCHC (32.0-36.0) g/dL RDW Std Deviation (36.4-46.3) fL RDW Coeff of Ynoy (11.5-14.5) % Plt Count (130-400) K/uL MPV (9.4-12.4) fL Immature Gran % (Auto) % Neut % (Auto) % Lymph % (Auto) % [place] % (Auto) % Eos % (Auto) % Baso % (Auto) % Neut # (Auto) (1.40-6.50) K/uL Lymph # (Auto) (1.20-3.40) K/uL [place] # (Auto) (0.11-0.59) K/uL Eos # (Auto) (0.00-0.50) K/uL Baso # (Auto) (0.00-0.20) K/uL Immature Gran # (Auto) (0.01-0.20) K/uL PT (9.0-12.0) Seconds INR (0.9-1.1) POC Sodium (135-144) mmol/L Sodium (136-145) mmol/L POC Potassium (3.3-5.0) mmol/L Potassium (3.5-5.1) mmol/L POC Chloride (101-112) mmol/L Chloride (98-107) mmol/L Carbon Dioxide (21-32) mmol/L POC Total CO2 (24-31) mmol/L Anion Gap (3-11) POC Anion Gap (16-25) mmol/L POC BUN (7-18) mg/dl BUN (6-23) mg/dl Creatinine (0.6-1.4) mg/dl POC Creatinine (0.6-1.3) mg/dl Est Cr Clr Drug Dosing ml/min Est GFR ( Amer) ml/min Est GFR (Non-Af Amer) ml/min BUN/Creatinine Ratio (10-20) Glucose (70-99(Fasting)) mg/dl POC Glucose (other) (70-99) mg/dl Lactate (0.4-2.0) mmol/L Calcium (8.6-10.3) mg/dl POC Ioniz Calcium Alyssa (1.12-1.32) mmol/l Total Bilirubin (0.2-1.0) mg/dl AST (13-39) U/L ALT (7-52) U/L Alkaline Phosphatase (34-104) U/L Total Creatine Kinase (30-223) U/L Troponin I High Sens 29.6 H (0-20) pg/ml Total Protein (6.0-8.3) gm/dl Albumin (3.4-5.0) gm/dl Globulin (2.5-4.0) gm/dl Albumin/Globulin Ratio (0.9-2) Urine Color Yellow Urine Appearance Cloudy A (Clear) Urine pH 6.0 (4.5-7.5) Ur Specific Reasnor 1.015 (1.000-1.030) Urine Protein Trace H (Negative) Urine Glucose (UA) 2+ H (Negative) Urine Ketones Negative (Negative) Urine Blood Trace H (Negative) Urine Nitrite Negative (Negative) Urine Bilirubin Negative (Negative) Urine Urobilinogen Negative (Negative) Ur Leukocyte Esterase 3+ H (Negative) Urine WBC (Auto) >50 H (0-5) /hpf Urine RBC (Auto) 0-2 (0-2) /hpf U Hyaline Cast (Auto) 0-2 (0-2) /lpf U Epithel Cells (Auto) 0-2 (0-2) /hpf Urine Bacteria (Auto) 4+ H (None Seen) Imaging Data Radiologist's Impression: Cervical Spine CT 12/06/23 12:[address] DOSE: HISTORY: Trauma TECHNIQUE: Multiaxial CT images of the cervical spine were performed and reformatted in the sagittal and coronal plane without the use of contrast. A dose lowering technique was utilized adhering to the principles of ALARA. COMPARISON: Cervical spine CT 09/02/2023. FINDINGS: No fractures. No subluxation. Prevertebral soft tissues and the C1-C2 interval are intact. No pneumothorax. IMPRESSION: No fractures within the cervical spine. ACT 112: Negative or not required by law. Electronically signed by: Mendoza Uriostegui M.D. 12/06/2023 1:58 PM Chest X-Ray 12/06/23 12:30 XR chest 1V portable HISTORY: fall COMPARISON: Chest 10/22/2023. FINDINGS: There are poststernotomy changes and left-sided pacemaker/defibrillator. The heart remains enlarged. 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 A few bibasilar linear densities consistent with subsegmental atelectasis. No evidence for pulmonary edema. There are old left-sided rib fractures. Deformity within the left posterior third rib may represent an acute fracture. Questionable tiny left apical pneumothorax. IMPRESSION: 1. Questionable tiny left apical pneumothorax. This will be better appreciated on the same day chest CT. 2. Deformity within the left posterior third rib which may represent an acute fracture. ACT 112: Negative or not required by law. Electronically signed by: Mendoza Uriostegui M.D. 12/06/2023 1:[address] 12/06/23 12:[address] DOSE: HISTORY: Trauma TECHNIQUE: Multiaxial CT images of the head were performed without the use of intravenous contrast. Automated exposure control was utilized for this study. A dose lowering technique was utilized adhering to the principles of ALARA. Comparison: Head CT 10/22/2023. Findings: The paranasal sinuses and mastoid air cells are clear. The calvarium and skull base are intact. There is no mass, hematoma, midline shift, acute infarct. White matter hypodensity is nonspecific but suggestive of microvascular ischemic change. The ventricles and sulci demonstrate mild age-related involutional changes. Impression: No acute intracranial abnormality. ACT 112: Negative or not required by law. Electronically signed by: Mendoza Uriostegui M.D. 12/06/2023 1:55 PM Abdomen/Pelvis CT 12/06/23 12:[address] WITHOUT CONTRAST CT DOSE: 3527.51 mGy.cm HISTORY: trauma TECHNIQUE: Multiaxial CT images of the abdomen and pelvis were performed without contrast. A dose lowering technique was utilized adhering to the principles of ALARA. COMPARISON STUDY: Abdomen and pelvis CT 09/09/2022. FINDINGS: The lung bases will be reported on the same day chest CT. No pneumoperitoneum. No pneumatosis. No acute fractures. Severe body wall edema is noted. There is a right lateral hip subcutaneous hematoma measuring 8.8 cm. Trace perihepatic ascites is noted. Prior cholecystectomy. No hepatic or splenic masses. The unenhanced pancreas is unremarkable. No renal stones or hydronephrosis. Moderate mesenteric and retroperitoneal edema is noted. No retroperitoneal hematoma or lymphadenopathy. Calcified plaque within the normal caliber abdominal aorta. 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 A right lateral bladder diverticulum is noted. No definite bowel wall thickening or obstruction. Colonic diverticulosis. No evidence for acute diverticulitis. IMPRESSION: 1. An 8.8 cm right lateral hip subcutaneous hematoma 2. No acute fractures identified. 3. Severe body wall edema. 4. Additional findings as described above. ACT 112: Negative or not required by law. Electronically signed by: Mendoza Uriostegui M.D. 12/06/2023 2:[address] 12/06/23 12:52 CT chest diagnostic wo con CT DOSE: HISTORY: trauma TECHNIQUE: Multiaxial CT images of the chest were performed without contrast. A dose lowering technique was utilized adhering to the principles of ALARA. COMPARISON: Chest CT 09/09/2022. FINDINGS: Poststernotomy changes and a left-sided pacemaker are noted. No acute fractures within the chest. Multiple fat-containing lesions again noted within the left shoulder which remain similar in size. These favor lipomas. Diffuse body wall edema is noted. Small right and trace left pleural effusions. No pericardial effusions. The heart is enlarged. The abdominal structures will be reported on the same day abdomen and pelvis CT. Calcified plaque within the thoracic aorta. The ascending thoracic aorta measures up to 4.1 cm in diameter. An aortic valve prosthesis is noted. Normal caliber esophagus. The thyroid gland enhances normally. No mediastinal or hilar lymphadenopathy. No mediastinal hematoma. The central airways are patent. No pneumothorax. Bibasilar linear groundglass densities favor dependent change/subsegmental atelectasis. There is mild pulmonary vascular congestion without overt edema. Small hypodense lobular density within the left lower lobe medially abutting the descending thoracic aorta measuring up to 9 mm in thickness. This may represent trace loculated pleural effusion. IMPRESSION: 1. No acute traumatic process within the chest. 2. Cardiomegaly and bilateral pleural effusions. 3. Stable fat-containing lesion within the left shoulder. 4. Additional findings as described above. ACT 112: Negative or not required by law. Electronically signed by: Mendoza Uriostegui M.D. 12/06/2023 2:10 PM Discharge Plan Visit Data Chief Complaint: Trauma ED Provider: Lisa Roth Discharge Problem: Fall, Rhabdomyolysis, Elevated serum creatinine, Unable to care for self, Generalized weakness, Subcutaneous hematoma, Elevated troponin Forms Stand Alone Forms: [employer] Prescriptions Prescriptions: No Action (DME) Left Upper Extremity Compression Sleeve See Rx Instructions .Route .MEDSUPPLY Qty: 1 0RF Rx Instructions: As directed atorvastatin 80 mg tablet 80 mg PO HS Qty: 90 3RF bupropion HCl 150 mg tablet sustained-release 12 hr 150 mg PO BID Qty: 180 3RF levothyroxine [Synthroid] 50 mcg tablet 50 mcg PO DAILY Qty: 90 3RF Rx Instructions: Take first thing in the morning on an empty stomach with an 8 oz glass of water. Do not eat or take other medications for 30 minutes. amiodarone 200 mg tablet 400 mg PO QAM Qty: 180 3RF galantamine 8 mg capsule,ext rel. pellets 24 hr 8 mg PO QAM Qty: 30 2RF Rx Instructions: administer with breakfast folic acid 800 mcg tablet 800 mcg PO QAM Qty: 90 3RF Rx Instructions: Unable to verify OTC meds at this date/time. Jardiance 10 mg tablet 10 mg PO DAILY Qty: 90 3RF bumetanide 1 mg tablet 1 mg PO BID Qty: 60 3RF Eliquis 2.5 mg tablet 2.5 mg PO AMHS Qty: 60 2RF cyanocobalamin (vitamin B-12) 500 mcg tablet 500 mcg PO QAM Qty: 30 2RF omeprazole 20 mg capsule,delayed release(DR/EC) See Rx Instructions .ROUTE .COMPLEX Qty: 90 3RF Dose Instruction: TAKE 1 CAPSULE BY MOUTH ONCE DAILY IN THE MORNING Rx Instructions: TAKE 1 CAPSULE BY MOUTH ONCE DAILY IN THE MORNING lisinopril 20 mg tablet 10 mg PO DAILY Qty: 180 1RF Hold Instructions: Resume on 11/05/23. Hold until your follow-up appointment with cardiology ciprofloxacin HCl 500 mg tablet 500 mg PO DAILY Qty: 7 0RF Referrals Referrals: Juan Manuel Early III, CRNP [Primary Care Provider] -
[2023-12-06 12:50] LABS: iSTAT Creatinine 2.4 mg/dl (0.6-1.3); iSTAT Hemoglobin 9.5 g/dl (14.0-18.0); iSTAT Ionized Calcium 1.07 mmol/l (1.12-1.32); iSTAT Potassium 4.1 mmol/L (3.3-5.0)
[2023-12-06 12:59] LABS: Basophils # (auto) 0.04 K/uL (0.00-0.20); Basophils % (auto) 0.4 %; Eosinophils # (auto) 0.04 K/uL (0.00-0.50); Eosinophils % (auto) 0.4 %; Hematocrit (blood only) 26.4 % (42.0-52.0); Hemoglobin 8.3 g/dl (14.0-18.0); Immature Granulocytes # (auto) 0.04 K/uL (0.01-0.20); Immature Granulocytes % (auto) 0.4 %; Lymphocytes # (auto) 0.69 K/uL (1.20-3.40); Lymphocytes % (auto) 7.8 %; Mean Corpuscular Hemoglobin 26.8 pg (25.0-34.0); Mean Corpuscular Hgb Conc 31.4 g/dL (32.0-36.0); Mean Corpuscular Volume 85.2 fL (80.0-100.0); Mean Platelet Volume 11.9 fL (9.4-12.4); Monocytes # (auto) 0.88 K/uL (0.11-0.59); Monocytes % (auto) 9.9 %; Neutrophils # (auto) 7.21 K/uL (1.40-6.50); Neutrophils % (auto) 81.1 %; Platelet Count 243 K/uL (130-400); RDW Coefficient of Variation 17.7 % (11.5-14.5); RDW Standard Deviation 54.1 fL (36.4-46.3)
[2023-12-06 13:00] LABS: INR 1.2 (0.9-1.1); Prothrombin Time 12.4 Seconds (9.0-12.0)
[2023-12-06 13:09] LABS: Albumin Globulin Ratio 0.9 (0.9-2); Albumin Level 3.4 gm/dl (3.4-5.0); BUN Creatinine Ratio 25.6 (10-20); Bilirubin,Total 1.1 mg/dl (0.2-1.0); Calcium 8.5 mg/dl (8.6-10.3); Creatinine Clr Calc Pharmacy 28.7 ml/min; Est GFR (Non-African American) 25.9 ml/min; Globulin 3.8 gm/dl (2.5-4.0); Potassium 4.1 mmol/L (3.5-5.1); Total Protein 7.2 gm/dl (6.0-8.3)
--- NOTE | 2023-12-06 13:10 | XRay Report ---
XR chest 1V portable HISTORY: fall COMPARISON: Chest 10/22/2023. FINDINGS: There are poststernotomy changes and left-sided pacemaker/defibrillator. The heart remains enlarged. 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 A few bibasilar linear densities consistent with subsegmental atelectasis. No evidence for pulmonary edema. There are old left-sided rib fractures. D eformity within the left posterior third rib may represent an acute fracture. Questionable tiny left apical pneumothorax. IMPRESSION: 1. Questionable tiny left apical pneumothorax. This will be better appreciated on the same day chest CT. 2. Deformity within the left posterior third rib which may represent an acute fracture. ACT 112: Negative or not required by law. Electronically signed by: Mendoza Uriostegui M.D. 12/06/2023 1:07 PM
[2023-12-06 13:14] LABS: Troponin I High Sensitivity 29.7 pg/ml (0-20)
[2023-12-06 13:15] LABS: Appearance Urine Cloudy (Clear); Bacteria Urine Automated 4+ (None Seen); Bilirubin Urine Negative (Negative); Blood Urine Trace (Negative); Cast Urine Automated 0-2 /lpf (0-2); Color Urine Yellow; Epithelial Cell Urine Auto 0-2 /hpf (0-2); Glucose Urine UA 2+ (Negative); Ketones Urine Negative (Negative); Leukocyte Esterase Urine 3+ (Negative); Nitrite Urine Negative (Negative); Protein Urine Trace (Negative); RBC Urine Automated 0-2 /hpf (0-2); Specific Gravity Urine 1.015 (1.000-1.030); Urobilinogen Urine Negative (Negative); WBC Urine Automated >50 /hpf (0-5)
--- NOTE | 2023-12-06 13:56 | CT Scan Report ---
HEAD CT NONCONTRAST CT DOSE: HISTORY: Trauma TECHNIQUE: Multiaxial CT images of the head were performed without the use of intravenous contrast. A utomated exposure control was utilized for this study. A dose lowering technique was utilized adheri ng to the principles of ALARA. Comparison: Head CT 10/22/2023. Findings: The paranasal sinuses and mastoid air cells are clear. The calvarium and skull base are int act. There is no mass, hematoma, midline shift, acute infarct. White matter hypodensity is nonspecifi c but suggestive of microvascular ischemic change. The ventricles and sulci demonstrate mild age-rela serjio involutional changes. Impression: No acute intracranial abnormality. ACT 112: Negative or not required by law. Electronically signed by: Mendoza Uriostegui M.D. 12/06/2023 1:55 PM
--- NOTE | 2023-12-06 13:59 | CT Scan Report ---
CERVICAL SPINE CT CT DOSE: HISTORY: Trauma TECHNIQUE: Multiaxial CT images of the cervical spine were performed and reformatted in the sagittal and coronal plane without the use of contrast. A dose lowering technique was utilized adhering to th e principles of ALARA. COMPARISON: Cervical spine CT 09/02/2023. FINDINGS: No fractures. No subluxation. Prevertebral soft tissues and the C1-C2 interval are intact. No pneumothorax. IMPRESSION: No fractures within the cervical spine. ACT 112: Negative or not required by law. Electronically signed by: Mendoza Uriostegui M.D. 12/06/2023 1:58 PM
--- NOTE | 2023-12-06 14:06 | CT Scan Report ---
ABDOMEN AND PELVIS CT WITHOUT CONTRAST CT DOSE: 3527.51 mGy.cm HISTORY: trauma TECHNIQUE: Multiaxial CT images of the abdomen and pelvis were performed without contrast. A dose lo wering technique was utilized adhering to the principles of ALARA. COMPARISON STUDY: Abdomen and pelvis CT 09/09/2022. FINDINGS: The lung bases will be reported on the same day chest CT. No pneumoperitoneum. No pneumatos is. No acute fractures. Severe body wall edema is noted. There is a right lateral hip subcutaneous he matoma measuring 8.8 cm. Trace perihepatic ascites is noted. Prior cholecystectomy. No hepatic or spl enic masses. The unenhanced pancreas is unremarkable. No renal stones or hydronephrosis. Moderate mes enteric and retroperitoneal edema is noted. No retroperitoneal hematoma or lymphadenopathy. Calcified plaque within the normal caliber abdominal aorta. Multiple brachytherapy seeds in the prostate gland . A right lateral bladder diverticulum is noted. No definite bowel wall thickening or obstruction. Co lonic diverticulosis. No evidence for acute diverticulitis. IMPRESSION: 1. An 8.8 cm right lateral hip subcutaneous hematoma 2. No acute fractures identified. 3. Severe body wall edema. 4. Additional findings as described above. ACT 112: Negative or not required by law. Electronically signed by: Mendoza Uriostegui M.D. 12/06/2023 2:04 PM
--- NOTE | 2023-12-06 14:13 | CT Scan Report ---
CT chest diagnostic wo con CT DOSE: HISTORY: trauma TECHNIQUE: Multiaxial CT images of the chest were performed without contrast. A dose lowering techni que was utilized adhering to the principles of ALARA. COMPARISON: Chest CT 09/09/2022. FINDINGS: Poststernotomy changes and a left-sided pacemaker are noted. No acute fractures within the chest. Multiple fat-containing lesions again noted within the left shoulder which remain similar in s ize. These favor lipomas. Diffuse body wall edema is noted. Small right and trace left pleural effusi ons. No pericardial effusions. The heart is enlarged. The abdominal structures will be reported on same day abdomen and pelvis CT. Calcified plaque within the thoracic aorta. The ascending thoracic aorta measures up to 4.1 cm in diameter. An aortic valve prosthesis is noted. Normal caliber esophagu s. The thyroid gland enhances normally. No mediastinal or hilar lymphadenopathy. No mediastinal hemat brittany. The central airways are patent. No pneumothorax. Bibasilar linear groundglass densities favor de pendent change/subsegmental atelectasis. There is mild pulmonary vascular congestion without overt ed daniel. Small hypodense lobular density within the left lower lobe medially abutting the descending thor acic aorta measuring up to 9 mm in thickness. This may represent trace loculated pleural effusion. IMPRESSION: 1. No acute traumatic process within the chest. 2. Cardiomegaly and bilateral pleural effusions. 3. Stable fat-containing lesion within the left shoulder. 4. Additional findings as described above. ACT 112: Negative or not required by law. Electronically signed by: Mendoza Uriostegui M.D. 12/06/2023 2:10 PM
--- NOTE | 2023-12-06 15:09 | History & Physical Report ---
Date of Service December 06, 2023 Assessment & Plan (1) Fall: Plan: Admit to the PCU on telemetry and pulse oximetry Currently hemodynamically stable, stable on room air, and nontoxic-appearing Patient presented to the ED as a trauma alert after he was found down outside his home this morning by a neighbor, unwitnessed fall and unsure of exact time he initially fell His home reportedly was in disarray and they are significant concerns he is unable to care for himself Noted to have a large right thigh hematoma but is otherwise without acute trauma Patient has a history of recurrent falls previously and is on Eliquis for atrial fibrillation Fall/aspiration precautions PT/OT consults, case management consult Will attempt to call and update family Bilateral SCDs for DVT prophylaxis until we deem him safe from a bleeding perspective Heart healthy diet with 2 g sodium and 1800 mL fluid restriction AM CMP, mag, PT/INR (2) Hematoma of right thigh: Plan: Patient has a large right thigh hematoma noted on CT and exam today Likely due to his recent falls and being on Eliquis Has remained hemodynamically stable but hemoglobin is approximately 2 g/dL lower than last month Continue to hold Eliquis for now Patient has been consented for blood, type/screen and type/cross have been ordered with 2 units PRBCs on hold if needed Will trend CBC every 6 hours starting this evening, if he has another significant hemoglobin drop will also reverse his Eliquis, last (3) Unable to care for self: Plan: Patient has a long history of difficulty living at home by himself as he is an extremely high fall risk and falls frequently His home was reportedly in disarray when EMS arrived, he has very poor hygiene today Case management consult has been placed as there was word that a possible area of aging evaluation may be needed (4) UTI (urinary tract infection): Plan: UA appears consistent with UTI today Has grown Klebsiella and Pseudomonas without resistance on previous cultures Status post 1 dose of ceftriaxone in the ED Will continue with cefepime Follow urine cultures (5) Pleural effusion: Plan: CT of the chest without contrast noted possible trace loculated pleural effusion in the left lower lobe Patient has been stable on room air and asymptomatic at rest Will add Pro-Hector and discuss with pulmonology to see if they think any intervention will be needed Continue ceftriaxone for now and follow Pro-Hector ordered at time of admission (6) HTN, goal below 140/80: Plan: Currently stable Will hold home Bumex and lisinopril today to monitor hemodynamics and monitor for development of CATRACHITO Continue metoprolol for now Can resume Bumex and lisinopril tomorrow if stable (7) Stage 4 chronic kidney disease: Plan: Renal function is currently stable Avoid nephrotoxic agents Monitor daily (8) PAF (paroxysmal atrial fibrillation): Plan: Currently in a dual AV paced rhythm Continue metoprolol and amiodarone Hold Eliquis for now until deemed stable from a bleeding risk (9) Heart failure with mildly reduced ejection fraction: Plan: Currently euvolemic on exam The patient is stable hemodynamically and without CATRACHITO tomorrow can resume home Bumex Plan The patient was discussed with Dr. 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 Patient was reportedly found by a neighbor who called EMS. EMS reported that his house was extremely cluttered and difficult to maneuvering. He was brought to the ED due to being found down and to begin the case with the area of aging. He remained stable in the ED. Labs were significant for hemoglobin 8.3 (down from 10.7 as of 10/31/2023), hematocrit of 26, MCHC of 31, INR 1.2, creatinine of 2.230 (appears near baseline), ionized calcium of 1.07, CK of 244, initial high-sensitivity troponin as well as repeat high-sensitivity troponin of 29, with UA consistent with UTI. CT of the head and brain without contrast and CT of the cervical spine were read as negative for acute findings. Chest x-ray was read as questionable tiny left apical pneumothorax. This will be better appreciated on same-day chest CT. Deformity within the left posterior third rib which may represent an acute fracture. CT of the chest was read as no acute traumatic process within the chest. Cardiomegaly and bilateral pleural effusions. Stable fat-containing lesion within the left s no pneumothorax was noted. Small hypodense lobular density within the left lower lobe medially abutting the descending thoracic aorta measuring up to 9 mm in thickness. This may represent trace loculated pleural effusion. CT of the abdomen pelvis without contrast was read as an 8.8 cm right lateral hip subcutaneous hematoma. Severe body wall edema. But was negative for acute fractures. Prior to admission the patient was given 1 L normal saline and 2 mg IV ceftriaxone. Patient was sitting in bed in no acute distress at time of exam. Patient is a poor historian at baseline as he is well-known to our service from multiple past admissions. Confirms that he did fall states it was early this morning but cannot give me further details surrounding her fall. He was unable to get himself up and eventually called out to a neighbor when he saw them outside. Denies hitting his head or losing consciousness. Only pain at this time is some soreness in the right thigh. Denies recent fever, chills, chest pain, head/neck/back pain, abdominal pain, nausea/vomiting, diarrhea, melena. Does note some dyspnea on exertion which she is experienced in the past. When asked who helps to care for him he states that he has a friend who lives approximately 1 and half miles away who will come and visit. States that his family does not come by frequently. Wishes to be full code and for his children to make medical decisions for him if he cannot make them himself. States that he has not had any of his normal medications yet today Please refer to Dr. Altamirano's attestation for any changes to the treatment plan Allergies Allergy/AdvReac Type Severity Reaction Status Date / Time No Known Allergies Allergy Verified 12/06/23 16:03 Home Medications Medication Instructions Recorded Confirmed Type Left Upper Extremity Compression #1 ea 07/03/23 12/02/23 Rx Sleeve atorvastatin 80 mg tablet 80 mg PO HS #90 tabs 09/15/23 12/11/23 Rx bupropion HCl 150 mg tablet,12 hr 150 mg PO BID #180 ea 09/15/23 12/11/23 Rx sustained-release levothyroxine 50 mcg tablet 50 mcg PO DAILY #90 tabs 09/15/23 12/11/23 Rx (Synthroid) amiodarone 200 mg tablet 400 mg (2 x 200 mg) PO QAM #180 09/16/23 12/11/23 Rx tabs folic acid 800 mcg tablet 800 mcg PO QAM #90 tabs 10/14/23 12/11/23 Rx galantamine 8 mg 24 hr 8 mg PO QAM #30 caps 10/14/23 12/11/23 Rx capsule,extended release apixaban 2.5 mg tablet (Eliquis) 2.5 mg PO AMHS #60 tabs 11/06/23 12/11/23 Rx bumetanide 1 mg tablet 1 mg PO BID #60 tabs 11/06/23 12/11/23 Rx cyanocobalamin (vitamin B-12) 500 500 mcg PO QAM #30 tabs 11/06/23 12/11/23 Rx mcg tablet empagliflozin 10 mg tablet 10 mg PO DAILY #90 tabs 11/06/23 12/11/23 Rx (Jardiance) metoprolol succinate 50 mg 50 mg PO QAM 12/06/23 12/11/23 History tablet,extended release 24 hr cefdinir 300 mg capsule 300 mg PO BID 7 days #14 caps 12/11/23 Rx doxycycline hyclate 100 mg tablet 100 mg PO BID 7 days #14 tabs 12/11/23 Rx omeprazole 20 mg capsule,delayed 20 mg PO QAM 12/11/23 12/11/23 History release Past Med/Surg History Problem List (Updated 12/13/23 @ 21:12 by Wolfgang Montiel MD) Episode of unresponsiveness (Acute) CKD (chronic kidney disease) (Acute) Closed rib fracture (Acute) Pneumonia (Acute) Pleural effusion Heart failure with mildly reduced ejection fraction Hematoma of right thigh Elevated troponin (Acute) Subcutaneous hematoma (Acute) Generalized weakness (Acute) Unable to care for self (Acute) Elevated serum creatinine (Acute) Rhabdomyolysis (Acute) Fall (Acute) Recurrent falls Hematuria B12 deficiency S/P AVR (aortic valve replacement) HTN, goal below 140/80 Acute on chronic combined systolic (congestive) and diastolic (congestive) heart failure Anemia (Acute) Falling (Acute) Weakness (Acute) Venous ulcers of both lower extremities (Acute) Stage 4 chronic kidney disease Frequent falls (Acute) Stage III pressure ulcer of buttock (Acute) Venous ulcer of left leg Stage II pressure ulcer of right buttock (Acute) Lymphedema Implantable cardioverter-defibrillator (ICD) discharge Cognitive disorder Abnormal ankle brachial index Chronic acquired lymphedema (Chronic) Bilateral lower extremity edema (Acute) Venous stasis ulcers of both lower extremities (Acute) Mass of joint of left shoulder H/O prostate cancer Presence of combination internal cardiac defibrillator (ICD) and pacemaker Right ischial pressure sore, stage 1 Coronary artery disease (Chronic) Depression (Chronic) Disc degeneration, lumbar (Chronic) Pure hypercholesterolemia (Chronic) Prediabetes (Chronic) Medical History Acute on chronic HFrEF (heart failure with reduced ejection fraction) CKD (chronic kidney disease) Atrial fibrillation Acid reflux disease Hypothyroidism Ventricular tachyarrhythmia Subclavian vein obstruction PAF (paroxysmal atrial fibrillation) Dyslipidemia, goal LDL below 70 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 COVID-19 Ventricular tachycardia Thrombocytopenia New onset atrial fibrillation Encounter for pre-operative examination Left bundle branch block Acute pancreatitis Prostate cancer PVC (premature ventricular contraction) Hyperthyroidism Hypertension Hyperhomocystinemia History of snuff use Former smoker Difficulty reading due to visual problem Cervical radiculopathy 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, 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, clinical stage TIc Status post biopsies, biopsy stage TIIa Divine grade 3+3 Status post seed implant with cesium 131 as boost 12/08/2006 Status post completion of IMRT/IGRT 02/26/2007" Surgical History History of laparoscopic cholecystectomy (11/08/21) lap ish/ercp Nov 01 Chambers Status post aortic valve replacement with bioprosthetic valve H/O aortic valve repair H/O hernia repair Family History Mother Heart disease Brother Cancer Lung cancer Unknown Prostate cancer Father Prostate cancer Denies family history of Colon cancer Ovarian cancer Myocardial infarction Breast cancer Social History Smoking Status: Never smoker Tobacco Type: Cigarettes Age Started Using Tobacco: 8; Age Quit Using Tobacco: 75; packs per day: 2.5; Second Hand Exposure: No; Do You Dip or Chew Tobacco: No; Hx Alcohol Use: No Hx Substance Use: No Preferred Language: Icelandic Communication Ability: Effective Communication Ability Comment: Pt. DEEPTHI bilaterally Visual Impairment: No Limitations Hearing Ability: Use of Hearing Aid Summer Analyst Required: No Beliefs That Will Affect Care: None marital status: / Current Living Situation: Alone Current Living Situation Comment: Lives at home, alone current occupational status: retired How many Children do You have: 2 Feels Safe at Home: Yes Childhood Exposure to Second-Hand Smoke: Yes Diet: regular Diet Comment: regular caffeine: Yes during the past year weight has: remained stable Dental Care, Regularly: No Physical Activity Frequency: Does not Exercise Seatbelt Use: never Sunscreen Use: No Do you think of yourself as: straight/heterosexual Assistive Devices: Cane and Walker Physical Exam 2 Physical Exam: Physical Exam: General: In no acute distress, stated age, chronically ill-appearing, poor hygiene HEENT: Normocephalic, atraumatic, no scleral icterus, pupils around round, symmetrical, and reactive to light, dry mucus membranes, trachea midline, no thyromegaly Chest/Pulm: No respiratory distress, symmetrical chest expansion, clear breath sounds throughout Cardiac: RRR, no murmurs noted Abdomen: Negative for ascites and bruising, normoactive bowel sounds, soft, non-tender to palpation throughout Musculoskeletal: See attached pictures below of right thigh hematoma, no other acute trauma during exam Extremities: Radial, dorsalis pedis, and posterior tibial pulses are intact and symmetrical, no edema noted in the BL LE's Skin: See attached pictures below for right thigh hematoma and improvement of bilateral lower extremity swelling and cellulitis compared to previous admission Neuro: Alert and oriented to person, place, month, year, no focal defects, CN II-XII tested and intact, no tremors noted Psych: No acute distress, calm and cooperative during the exam Results & Data Results & Data Vital Signs (Past 12 Hours) Vital Signs Temp Pulse Pulse Resp BP BP Pulse Ox 12/06/23 14:00 138/92 12/06/23 14:00 138/92 12/06/23 14:00 75 10 L 95 12/06/23 13:33 75 12 94 08/25/24 13:27 75 12 92 12/06/23 13:23 132/91 12/06/23 13:10 36.8 C 75 18 135/85 96 12/06/23 13:09 75 12/06/23 12:48 75 18 93 12/06/23 12:39 75 18 94 12/06/23 12:30 78 18 93 12/06/23 12:13 36.6 C 75 18 132/91 94 12/06/23 12:13 36.6 C 78 18 133/91 93 12/06/23 12:13 93 12/06/23 12:13 36.6 C 78 20 133/91 90 O2 Del Method 12/06/23 14:00 12/06/23 14:00 12/06/23 14:00 12/06/23 13:33 12/06/23 13:27 12/06/23 13:23 12/06/23 13:10 Room Air 12/06/23 13:09 12/06/23 12:48 12/06/23 12:39 12/06/23 12:30 Room Air 12/06/23 12:13 Room Air 12/06/23 12:13 Room Air 12/06/23 12:13 Room Air 12/06/23 12:13 Room Air Laboratory Results Abnormal lab results 12/06/23 12/06/23 12/06/23 Range/Units 12:29 12:37 14:19 RBC 3.10 L (4.70-6.10) M/uL Hgb 8.3 L (14.0-18.0) g/dl POC Hgb 9.5 L (14.0-18.0) g/dl Hct 26.4 L (42.0-52.0) % POC Hct 28 L (42-52) % MCHC 31.4 L (32.0-36.0) g/dL RDW Std Deviation 54.1 H (36.4-46.3) fL RDW Coeff of Yony 17.7 H (11.5-14.5) % Neut # (Auto) 7.21 H (1.40-6.50) K/uL Lymph # (Auto) 0.69 L (1.20-3.40) K/uL Wolfe # (Auto) 0.88 H (0.11-0.59) K/uL PT 12.4 H (9.0-12.0) Seconds INR 1.2 H (0.9-1.1) POC Chloride 100 L (101-112) mmol/L POC BUN 47 H (7-18) mg/dl BUN 57 H (6-23) mg/dl Creatinine 2.23 H (0.6-1.4) mg/dl POC Creatinine 2.4 H (0.6-1.3) mg/dl BUN/Creatinine Ratio 25.6 H (10-20) Glucose 100 H (70-99(Fasting)) mg/dl Calcium 8.5 L (8.6-10.3) mg/dl POC Ioniz Calcium Alyssa 1.07 L (1.12-1.32) mmol/l Total Bilirubin 1.1 H (0.2-1.0) mg/dl Alkaline Phosphatase 182 H (34-104) U/L Total Creatine Kinase 244 H (30-223) U/L Troponin I High Sens 29.7 H 29.6 H (0-20) pg/ml Urine Appearance (Clear) Urine Protein (Negative) Urine Glucose (UA) (Negative) Urine Blood (Negative) Ur Leukocyte Esterase (Negative) Urine WBC (Auto) (0-5) /hpf Urine Bacteria (Auto) (None Seen) 12/06/23 Range/Units Unknown RBC (4.70-6.10) M/uL Hgb (14.0-18.0) g/dl POC Hgb (14.0-18.0) g/dl Hct (42.0-52.0) % POC Hct (42-52) % MCHC (32.0-36.0) g/dL RDW Std Deviation (36.4-46.3) fL RDW Coeff of Yony (11.5-14.5) % Neut # (Auto) (1.40-6.50) K/uL Lymph # (Auto) (1.20-3.40) K/uL Wolfe # (Auto) (0.11-0.59) K/uL PT (9.0-12.0) Seconds INR (0.9-1.1) POC Chloride (101-112) mmol/L POC BUN (7-18) mg/dl BUN (6-23) mg/dl Creatinine (0.6-1.4) mg/dl POC Creatinine (0.6-1.3) mg/dl BUN/Creatinine Ratio (10-20) Glucose (70-99(Fasting)) mg/dl Calcium (8.6-10.3) mg/dl POC Ioniz Calcium Alyssa (1.12-1.32) mmol/l Total Bilirubin (0.2-1.0) mg/dl Alkaline Phosphatase (34-104) U/L Total Creatine Kinase (30-223) U/L Troponin I High Sens (0-20) pg/ml Urine Appearance Cloudy A (Clear) Urine Protein Trace H (Negative) Urine Glucose (UA) 2+ H (Negative) Urine Blood Trace H (Negative) Ur Leukocyte Esterase 3+ H (Negative) Urine WBC (Auto) >50 H (0-5) /hpf Urine Bacteria (Auto) 4+ H (None Seen) Diagnostic Findings Cervical Spine CT 12/06/23 12:[address] DOSE: HISTORY: Trauma TECHNIQUE: Multiaxial CT images of the cervical spine were performed and reformatted in the sagittal and coronal plane without the use of contrast. A dose lowering technique was utilized adhering to the principles of ALARA. COMPARISON: Cervical spine CT 09/02/2023. FINDINGS: No fractures. No subluxation. Prevertebral soft tissues and the C1-C2 interval are intact. No pneumothorax. IMPRESSION: No fractures within the cervical spine. ACT 112: Negative or not required by law. Electronically signed by: Mendoza Uriostegui M.D. 12/06/2023 1:58 PM Chest X-Ray 12/06/23 12:30 XR chest 1V portable HISTORY: fall COMPARISON: Chest 10/22/2023. FINDINGS: There are poststernotomy changes and left-sided pacemaker/defibrillator. The heart remains enlarged. 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 A few bibasilar linear densities consistent with subsegmental atelectasis. No evidence for pulmonary edema. There are old left-sided rib fractures. Deformity within the left posterior third rib may represent an acute fracture. Questionable tiny left apical pneumothorax. IMPRESSION: 1. Questionable tiny left apical pneumothorax. This will be better appreciated on the same day chest CT. 2. Deformity within the left posterior third rib which may represent an acute fracture. ACT 112: Negative or not required by law. Electronically signed by: Mendoza Uriostegui M.D. 12/06/2023 1:[address] 12/06/23 12:[address] DOSE: HISTORY: Trauma TECHNIQUE: Multiaxial CT images of the head were performed without the use of intravenous contrast. Automated exposure control was utilized for this study. A dose lowering technique was utilized adhering to the principles of ALARA. Comparison: Head CT 10/22/2023. Findings: The paranasal sinuses and mastoid air cells are clear. The calvarium and skull base are intact. There is no mass, hematoma, midline shift, acute infarct. White matter hypodensity is nonspecific but suggestive of microvascular ischemic change. The ventricles and sulci demonstrate mild age-related involutional changes. Impression: No acute intracranial abnormality. ACT 112: Negative or not required by law. Electronically signed by: Mendoza Uriostegui M.D. 12/06/2023 1:55 PM Abdomen/Pelvis CT 12/06/23 12:[address] WITHOUT CONTRAST CT DOSE: 3527.51 mGy.cm HISTORY: trauma TECHNIQUE: Multiaxial CT images of the abdomen and pelvis were performed without contrast. A dose lowering technique was utilized adhering to the principles of ALARA. COMPARISON STUDY: Abdomen and pelvis CT 09/09/2022. FINDINGS: The lung bases will be reported on the same day chest CT. No pneumoperitoneum. No pneumatosis. No acute fractures. Severe body wall edema is noted. There is a right lateral hip subcutaneous hematoma measuring 8.8 cm. Trace perihepatic ascites is noted. Prior cholecystectomy. No hepatic or splenic masses. The unenhanced pancreas is unremarkable. No renal stones or hydronephrosis. Moderate mesenteric and retroperitoneal edema is noted. No retroperitoneal hematoma or lymphadenopathy. Calcified plaque within the normal caliber abdominal aorta. 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 A right lateral bladder diverticulum is noted. No definite bowel wall thickening or obstruction. Colonic diverticulosis. No evidence for acute diverticulitis. IMPRESSION: 1. An 8.8 cm right lateral hip subcutaneous hematoma 2. No acute fractures identified. 3. Severe body wall edema. 4. Additional findings as described above. ACT 112: Negative or not required by law. Electronically signed by: Mendoza Uriostegui M.D. 12/06/2023 2:[address] 12/06/23 12:52 CT chest diagnostic wo con CT DOSE: HISTORY: trauma TECHNIQUE: Multiaxial CT images of the chest were performed without contrast. A dose lowering technique was utilized adhering to the principles of ALARA. COMPARISON: Chest CT 09/09/2022. FINDINGS: Poststernotomy changes and a left-sided pacemaker are noted. No acute fractures within the chest. Multiple fat-containing lesions again noted within the left shoulder which remain similar in size. These favor lipomas. Diffuse body wall edema is noted. Small right and trace left pleural effusions. No pericardial effusions. The heart is enlarged. The abdominal structures will be reported on the same day abdomen and pelvis CT. Calcified plaque within the thoracic aorta. The ascending thoracic aorta measures up to 4.1 cm in diameter. An aortic valve prosthesis is noted. Normal caliber esophagus. The thyroid gland enhances normally. No mediastinal or hilar lymphadenopathy. No mediastinal hematoma. The central airways are patent. No pneumothorax. Bibasilar linear groundglass densities favor dependent change/subsegmental atelectasis. There is mild pulmonary vascular congestion without overt edema. Small hypodense lobular density within the left lower lobe medially abutting the descending thoracic aorta measuring up to 9 mm in thickness. This may represent trace loculated pleural effusion. IMPRESSION: 1. No acute traumatic process within the chest. 2. Cardiomegaly and bilateral pleural effusions. 3. Stable fat-containing lesion within the left shoulder. 4. Additional findings as described above. ACT 112: Negative or not required by law. Electronically signed by: Mendoza Uriostegui M.D. 12/06/2023 2:10 PM ECG Additional Comments: AV paced rhythm Code Status & VTE Plan Code Status Full code VTE Prophylaxis Plan VTE Prophylaxis will be ordered: Yes Supervising Physician Co-Signing Physician Notes I personally saw and examined the patient. I verified all pillai points and agree with David Jordan PA-C with the following exceptions and/or additions: 83 year old male presents to the ER with unwitnessed fall with right thigh hematoma O/E HS RRR, no murmurs, Chest CTAB, Abdo SNT, Right thigh hematoma per pictures above, left upper extremity lymphedema at baseline A/P Recurrent falls - unwitnessed, found on floor, PT/OT, monitor on telemetry Right thigh hematoma - trend hemoglobin, transfuse < 7, hold anticoagulation Possible UTI - history from patient not reliable, will elect to treat as unable to determine if asymptomatic PG Care Time/CCT Total # of Minutes Spent Total Time Spent with Patient: Total time spent is greater than 50% in coordination of care (as documented) at patient's floor/unit and/or counseling patient: Coding [place] [address] INT INP/OBS CARE 3/75MIN Patient Type Established Medical Decision Making High Complexity Diagnoses Fall W19.XXXA Hematoma of right thigh S70.11XA Unable to care for self Z78.9 UTI (urinary tract infection) N39.0 Pleural effusion J90 HTN, goal below 140/80 I10 Stage 4 chronic kidney disease N18.4 PAF (paroxysmal atrial fibrillation) I48.0 Heart failure with mildly reduced ejection fraction I50.22
[2023-12-06] MEDS: SODIUM CHLORIDE 0.9% 1,000 ML IV ONE (15:23)
[2023-12-06] MEDS: cefTRIAXone SODIUM 2,000 MG/50 ML BAG IV STA (15:23)
[2023-12-06] MEDS ORDERED: SODIUM CHLORIDE 0.9% 250 ML IV PRN (15:48)
[2023-12-06] MEDS ORDERED: ACETAMINOPHEN 325 MG TAB PO PRN (15:49)
[2023-12-06] MEDS: CALCIUM GLUCONATE 1,000 MG/60 ML BAG IV STA (17:48)
[2023-12-06 20:03] LABS: Hematocrit (blood only) 28.4 % (42.0-52.0); Hemoglobin 8.9 g/dl (14.0-18.0); Mean Corpuscular Hemoglobin 27.1 pg (25.0-34.0); Mean Corpuscular Hgb Conc 31.3 g/dL (32.0-36.0); Mean Corpuscular Volume 86.6 fL (80.0-100.0); Mean Platelet Volume 10.9 fL (9.4-12.4); Platelet Count 220 K/uL (130-400); RDW Coefficient of Variation 17.6 % (11.5-14.5); RDW Standard Deviation 55.7 fL (36.4-46.3); Red Blood Count 3.28 M/uL (4.70-6.10); White Blood Count 8.48 K/ul (4.8-10.8)
[2023-12-06] MEDS: buPROPion SR 150 MG TABCR PO SCH (21:08)
[2023-12-06] MEDS: PANTOprazole 40 MG TAB PO SCH (21:08)
[2023-12-06] MEDS: CEFEPIME 2,000 MG in SYRINGE 0 ML IV ONE (21:09)
[2023-12-06 22:18] LABS: Albumin Globulin Ratio 0.8 (0.9-2); Albumin Level 3.1 gm/dl (3.4-5.0); BUN Creatinine Ratio 22.5 (10-20); Bilirubin,Total 0.9 mg/dl (0.2-1.0); Creatinine Clr Calc Pharmacy 27.1 ml/min; Est GFR (African American) 28.8 ml/min; Est GFR (Non-African American) 24.8 ml/min; Globulin 3.7 gm/dl (2.5-4.0); Total Protein 6.8 gm/dl (6.0-8.3)
[2023-12-07 00:45] LABS: Hematocrit (blood only) 26.3 % (42.0-52.0); Hemoglobin 8.4 g/dl (14.0-18.0); Mean Corpuscular Hemoglobin 27.3 pg (25.0-34.0); Mean Corpuscular Hgb Conc 31.9 g/dL (32.0-36.0); Mean Corpuscular Volume 85.4 fL (80.0-100.0); Mean Platelet Volume 11.9 fL (9.4-12.4); Platelet Count 225 K/uL (130-400); RDW Coefficient of Variation 17.6 % (11.5-14.5); Red Blood Count 3.08 M/uL (4.70-6.10); White Blood Count 7.42 K/ul (4.8-10.8)
[2023-12-07] MEDS: LEVOTHYROXINE SODIUM 50 MCG TABLET PO SCH (05:43)
[2023-12-07] MEDS: AMIODARONE 200 MG TAB PO SCH (08:05)
[2023-12-07] MEDS: METOPROLOL SUCC 50MG EXT REL TAB PO SCH (08:05)
--- NOTE | 2023-12-07 08:07 | Hospitalist Progress Note ---
<Statement entered by Breanne Fowelr MD - 12/07/23 14:23> Pressure ulcer of unspecified buttock, stage 3 and venous ulcers of both lower extremities, all POA -WON consult -continue wound care, pressure offloading Date of Service December 07, 2023 Assessment & Plan (1) Fall: Plan: Admit to the PCU on telemetry and pulse oximetry Currently hemodynamically stable, stable on room air, and nontoxic-appearing Patient presented to the ED as a trauma alert after he was found down outside his home this morning by a neighbor, unwitnessed fall and unsure of exact time he initially fell His home reportedly was in disarray and they are significant concerns he is unable to care for himself Noted to have a large right thigh hematoma but is otherwise without acute trauma Patient has a history of recurrent falls previously and is on Eliquis for atrial fibrillation Fall/aspiration precautions PT/OT consults, case management consult Will attempt to call and update family Bilateral SCDs for DVT prophylaxis until we deem him safe from a bleeding perspective Heart healthy diet with 2 g sodium and 1800 mL fluid restriction AM CMP, mag, PT/INR 12/06 Hospitalized last month for cellulitis/acute on chronic CHF, and recs for rehab but wanted to go home and was dc w/ services. * Had lisinopril held at [facility] until cards follow up and had diuretics changed to bumex and dc on 1mg daily which appears to have been increased to 1mg BID at some point in follow up with Dr Headley from nephrology but cards rec for 2mg daily bumex at [facility]. Seen by nephrology and icnreased to 1mg BID (however does miss dosing frequently if he has to run errands) Given Ceftriaxone/Cefepime IV on admission, continues on Cefepime Urine cx pending prior urine cx 11/15 w/ pseudomonas. F/u urine cx/adjustment as able Hgb stable w/ hematoma. Monitor for any worsening. Serial H&H Pacemaker interoggation without evidence for Vtach/Vfib. Cards consulted Ok to continue bumex 1mg BID, resumed for this morning PT/OT evals, recs for rehab. Ongoing encouragement for rehab as do not suspect able to safely take care of himself presently (2) Hematoma of right thigh: Plan: Large RIGHT thigh hematoma on CT/exam on admission Eliquis placed on hold for now, type/screen Hgb stable at present but 2u PRBC available if needed Serial H&H/exams. Monitor for any infection. Oncefepime for above UTI coverage (3) Unable to care for self: Plan: Patient has a long history of difficulty living at home by himself as he is an extremely high fall risk and falls frequently His home was reportedly in disarray when EMS arrived, he has very poor hygiene today Case management consult has been placed as there was word that a possible area of aging evaluation may be needed PT/OT evals recs for rehab, ongoing encouragement required daily (4) UTI (urinary tract infection): Plan: UA appeared infected. Prior +cx for klebsieall/pseuomonas Ceftraxone/Cefepime on admission -- continues on Cefepime. F/u urine cx/de-escalate as able Monitor I&O, UOP (5) Pleural effusion: Plan: CT of the chest without contrast noted possible trace loculated pleural effusion in the left lower lobe Stable on RA, procal not signifcantly elevated. Continue cefepime as above. Procal 0.04 Bumex resumed and suspect 2nd to noncompliance, however edema to legs MUCH imprved from last month (6) HTN, goal below 140/80: Plan: BP stable/borderline at times. Given IVF on admission/bumex on hold Continued metoprolol, bumex RESUMED Monitor for lisinopril but was held last admission w/ CKD. Monitor to resume if able vs continue w/ bumex therapy (7) Stage 4 chronic kidney disease: Plan: Renal function is currently stable Avoid nephrotoxic agents Monitor daily (8) PAF (paroxysmal atrial fibrillation): Plan: Currently in a dual AV paced rhythm Continue metoprolol and amiodarone Hold Eliquis for now until deemed stable from a bleeding risk Pacemaker interrogation w/o abnormality noted as above Keep mag/K replete, telemetry monitoring w/ paced rhythm (9) Heart failure with mildly reduced ejection fraction: Plan: Bumex resumed as above, avoid excessive IVF On room air Monitor weight/I&O Plan continued inpatient stay, diuretics resumed, monitor hematoma PT/OT consults recs for rehab -- continued encouragement as do not think able to care for himself presently and wanted the same last admission a month ago. Admission and Anticipated Discharge Date Admission Date: December 06, 2023 Subjective Eval this moring around 11am, sitting up in chair.Denies CP/SOB but also reports hasn't gotten up much. Discussed cardiology consult and diuretics. He reports he is to be taking them twice a day but also that he does skip that water pill if he has things to do/places to go for the day and doesn't take when he gets home as he will be due for the next pill as well. Therapy evals undertaken and recs for rehab. He is insistent on going home and can monitor w/ diuretics/cards consult placed. Pacemaker interrogation ordered, no VT/Vfib, stable. Cards consult placed/pending. Questions/concerns addressed at this time. Physical Exam Physical Exam: General: 83yo male, chronically ill appearing, sitting up in bed, talking with CM, NAD Head atraumatic, normocephalic, mmm, trachea midline Resp: even/unlabored, slightly diminished int he bases but no w/c/r, on room air CV: regular, +systolic murmur, improvement in LE edema compared to last admission, chronic LUE edema from trauma GI: +BS, soft/NT, +edema MSK/Neuro: nonfocal, answering questions appropriately, following commands as able significant hematoma/ecchymosis to RIGHT lateral thigh, +induration, no warmth/signs of infection at present time Psych: AOx3, cooperative with exam Results & Data Results & Data Vital Signs (Past 12 Hours) Vital Signs Temp Pulse Pulse Pulse Resp BP Pulse Ox 12/07/23 07:02 75 12/07/23 06:44 36.7 C 75 18 103/66 96 12/07/23 03:37 36.3 C L 76 18 114/68 96 12/06/23 23:11 75 12/06/23 23:05 36.5 C 75 16 100/66 95 12/06/23 21:25 12/06/23 20:10 36.5 C 75 16 126/82 97 12/06/23 20:10 Pulse Ox O2 Del Method O2 Del Method 12/07/23 07:02 12/07/23 06:44 Room Air 12/07/23 03:37 Room Air 12/06/23 23:11 12/06/23 23:05 Room Air 12/06/23 21:25 Room Air 12/06/23 20:10 Room Air 12/06/23 20:10 97 Room Air Laboratory Results 12/07/23 12/07/23 12/06/23 Range/Units 07:56 00:09 Unknown WBC 7.80 7.42 (4.8-10.8) K/ul RBC 3.20 L 3.08 L (4.70-6.10) M/uL Hgb 8.8 L 8.4 L (14.0-18.0) g/dl POC Hgb (14.0-18.0) g/dl Hct 26.7 L 26.3 L (42.0-52.0) % POC Hct (42-52) % MCV 83.4 85.4 (80.0-100.0) fL MCH 27.5 27.3 (25.0-34.0) pg MCHC 33.0 31.9 L (32.0-36.0) g/dL RDW Std Deviation 54.4 H 55.0 H (36.4-46.3) fL RDW Coeff of Yony 17.9 H 17.6 H (11.5-14.5) % Plt Count 246 225 (130-400) K/uL MPV 11.6 11.9 (9.4-12.4) fL Immature Gran % (Auto) % Neut % (Auto) % Lymph % (Auto) % [place] % (Auto) % Eos % (Auto) % Baso % (Auto) % Neut # (Auto) (1.40-6.50) K/uL Lymph # (Auto) (1.20-3.40) K/uL [place] # (Auto) (0.11-0.59) K/uL Eos # (Auto) (0.00-0.50) K/uL Baso # (Auto) (0.00-0.20) K/uL Immature Gran # (Auto) (0.01-0.20) K/uL PT 11.6 (9.0-12.0) Seconds INR 1.1 (0.9-1.1) POC Sodium (135-144) mmol/L Sodium 140 (136-145) mmol/L POC Potassium (3.3-5.0) mmol/L Potassium 4.3 (3.5-5.1) mmol/L POC Chloride (101-112) mmol/L Chloride 104 (98-107) mmol/L Carbon Dioxide 33 H (21-32) mmol/L POC Total CO2 (24-31) mmol/L Anion Gap 3 (3-11) POC Anion Gap (16-25) mmol/L POC BUN (7-18) mg/dl BUN 51 H (6-23) mg/dl Creatinine 2.11 H (0.6-1.4) mg/dl POC Creatinine (0.6-1.3) mg/dl Est Cr Clr Drug Dosing 30.0 ml/min Est GFR ( Amer) 32.1 ml/min Est GFR (Non-Af Amer) 27.7 ml/min BUN/Creatinine Ratio 24.2 H (10-20) Glucose 112 H (70-99(Fasting)) mg/dl POC Glucose (other) (70-99) mg/dl Lactate (0.4-2.0) mmol/L Calcium 8.0 L (8.6-10.3) mg/dl POC Ioniz Calcium Alyssa (1.12-1.32) mmol/l Magnesium 2.4 (1.7-2.4) mg/dl Total Bilirubin 0.8 (0.2-1.0) mg/dl AST 26 (13-39) U/L ALT 22 (7-52) U/L Alkaline Phosphatase 166 H (34-104) U/L Total Creatine Kinase (30-223) U/L Troponin I High Sens (0-20) pg/ml Total Protein 6.6 (6.0-8.3) gm/dl Albumin 3.0 L (3.4-5.0) gm/dl Globulin 3.6 (2.5-4.0) gm/dl Albumin/Globulin Ratio 0.8 L (0.9-2) Procalcitonin (0-0.5) ng/ml Urine Color Yellow Urine Appearance Cloudy A (Clear) Urine pH 6.0 (4.5-7.5) Ur Specific [place] 1.015 (1.000-1.030) Urine Protein Trace H (Negative) Urine Glucose (UA) 2+ H (Negative) Urine Ketones Negative (Negative) Urine Blood Trace H (Negative) Urine Nitrite Negative (Negative) Urine Bilirubin Negative (Negative) Urine Urobilinogen Negative (Negative) Ur Leukocyte Esterase 3+ H (Negative) Urine WBC (Auto) >50 H (0-5) /hpf Urine RBC (Auto) 0-2 (0-2) /hpf U Hyaline Cast (Auto) 0-2 (0-2) /lpf U Epithel Cells (Auto) 0-2 (0-2) /hpf Urine Bacteria (Auto) 4+ H (None Seen) Nasal Screen MRSA (PCR) (Negative) Blood Type Blood Type Recheck Antibody Screen Crossmatch 12/06/23 12/06/23 12/06/23 Range/Units 21:40 19:50 16:59 WBC 8.48 (4.8-10.8) K/ul RBC 3.28 L (4.70-6.10) M/uL Hgb 8.9 L (14.0-18.0) g/dl POC Hgb (14.0-18.0) g/dl Hct 28.4 L (42.0-52.0) % POC Hct (42-52) % MCV 86.6 (80.0-100.0) fL MCH 27.1 (25.0-34.0) pg MCHC 31.3 L (32.0-36.0) g/dL RDW Std Deviation 55.7 H (36.4-46.3) fL RDW Coeff of Yony 17.6 H (11.5-14.5) % Plt Count 220 (130-400) K/uL MPV 10.9 (9.4-12.4) fL Immature Gran % (Auto) % Neut % (Auto) % Lymph % (Auto) % [place] % (Auto) % Eos % (Auto) % Baso % (Auto) % Neut # (Auto) (1.40-6.50) K/uL Lymph # (Auto) (1.20-3.40) K/uL [place] # (Auto) (0.11-0.59) K/uL Eos # (Auto) (0.00-0.50) K/uL Baso # (Auto) (0.00-0.20) K/uL Immature Gran # (Auto) (0.01-0.20) K/uL PT (9.0-12.0) Seconds INR (0.9-1.1) POC Sodium (135-144) mmol/L Sodium 138 Cancelled (136-145) mmol/L POC Potassium (3.3-5.0) mmol/L Potassium 4.0 Cancelled (3.5-5.1) mmol/L POC Chloride (101-112) mmol/L Chloride 103 Cancelled (98-107) mmol/L Carbon Dioxide 32 Cancelled (21-32) mmol/L POC Total CO2 (24-31) mmol/L Anion Gap 3 Cancelled (3-11) POC Anion Gap (16-25) mmol/L POC BUN (7-18) mg/dl BUN 52 H Cancelled (6-23) mg/dl Creatinine 2.31 H Cancelled (0.6-1.4) mg/dl POC Creatinine (0.6-1.3) mg/dl Est Cr Clr Drug Dosing 27.1 Cancelled ml/min Est GFR ( Amer) 28.8 Cancelled ml/min Est GFR (Non-Af Amer) 24.8 Cancelled ml/min BUN/Creatinine Ratio 22.5 H Cancelled (10-20) Glucose 116 H Cancelled (70-99(Fasting)) mg/dl POC Glucose (other) (70-99) mg/dl Lactate (0.4-2.0) mmol/L Calcium 8.0 L Cancelled (8.6-10.3) mg/dl POC Ioniz Calcium Alyssa (1.12-1.32) mmol/l Magnesium (1.7-2.4) mg/dl Total Bilirubin 0.9 Cancelled (0.2-1.0) mg/dl AST 29 Cancelled (13-39) U/L ALT 24 Cancelled (7-52) U/L Alkaline Phosphatase 170 H Cancelled (34-104) U/L Total Creatine Kinase 209 Cancelled (30-223) U/L Troponin I High Sens (0-20) pg/ml Total Protein 6.8 Cancelled (6.0-8.3) gm/dl Albumin 3.1 L Cancelled (3.4-5.0) gm/dl Globulin 3.7 Cancelled (2.5-4.0) gm/dl Albumin/Globulin Ratio 0.8 L Cancelled (0.9-2) Procalcitonin (0-0.5) ng/ml Urine Color Urine Appearance (Clear) Urine pH (4.5-7.5) Ur Specific [place] (1.000-1.030) Urine Protein (Negative) Urine Glucose (UA) (Negative) Urine Ketones (Negative) Urine Blood (Negative) Urine Nitrite (Negative) Urine Bilirubin (Negative) Urine Urobilinogen (Negative) Ur Leukocyte Esterase (Negative) Urine WBC (Auto) (0-5) /hpf Urine RBC (Auto) (0-2) /hpf U Hyaline Cast (Auto) (0-2) /lpf U Epithel Cells (Auto) (0-2) /hpf Urine Bacteria (Auto) (None Seen) Nasal Screen MRSA (PCR) Negative (Negative) Blood Type Blood Type Recheck Antibody Screen Crossmatch 12/06/23 12/06/23 12/06/23 Range/Units 16:46 15:17 14:19 WBC (4.8-10.8) K/ul RBC (4.70-6.10) M/uL Hgb (14.0-18.0) g/dl POC Hgb (14.0-18.0) g/dl Hct (42.0-52.0) % POC Hct (42-52) % MCV (80.0-100.0) fL MCH (25.0-34.0) pg MCHC (32.0-36.0) g/dL RDW Std Deviation (36.4-46.3) fL RDW Coeff of Yony (11.5-14.5) % Plt Count (130-400) K/uL MPV (9.4-12.4) fL Immature Gran % (Auto) % Neut % (Auto) % Lymph % (Auto) % [place] % (Auto) % Eos % (Auto) % Baso % (Auto) % Neut # (Auto) (1.40-6.50) K/uL Lymph # (Auto) (1.20-3.40) K/uL [place] # (Auto) (0.11-0.59) K/uL Eos # (Auto) (0.00-0.50) K/uL Baso # (Auto) (0.00-0.20) K/uL Immature Gran # (Auto) (0.01-0.20) K/uL PT (9.0-12.0) Seconds INR (0.9-1.1) POC Sodium (135-144) mmol/L Sodium (136-145) mmol/L POC Potassium (3.3-5.0) mmol/L Potassium (3.5-5.1) mmol/L POC Chloride (101-112) mmol/L Chloride (98-107) mmol/L Carbon Dioxide (21-32) mmol/L POC Total CO2 (24-31) mmol/L Anion Gap (3-11) POC Anion Gap (16-25) mmol/L POC BUN (7-18) mg/dl BUN (6-23) mg/dl Creatinine (0.6-1.4) mg/dl POC Creatinine (0.6-1.3) mg/dl Est Cr Clr Drug Dosing ml/min Est GFR ( Amer) ml/min Est GFR (Non-Af Amer) ml/min BUN/Creatinine Ratio (10-20) Glucose (70-99(Fasting)) mg/dl POC Glucose (other) (70-99) mg/dl Lactate (0.4-2.0) mmol/L Calcium (8.6-10.3) mg/dl POC Ioniz Calcium Alyssa (1.12-1.32) mmol/l Magnesium (1.7-2.4) mg/dl Total Bilirubin (0.2-1.0) mg/dl AST (13-39) U/L ALT (7-52) U/L Alkaline Phosphatase (34-104) U/L Total Creatine Kinase (30-223) U/L Troponin I High Sens 29.6 H (0-20) pg/ml Total Protein (6.0-8.3) gm/dl Albumin (3.4-5.0) gm/dl Globulin (2.5-4.0) gm/dl Albumin/Globulin Ratio (0.9-2) Procalcitonin (0-0.5) ng/ml Urine Color Urine Appearance (Clear) Urine pH (4.5-7.5) Ur Specific [place] (1.000-1.030) Urine Protein (Negative) Urine Glucose (UA) (Negative) Urine Ketones (Negative) Urine Blood (Negative) Urine Nitrite (Negative) Urine Bilirubin (Negative) Urine Urobilinogen (Negative) Ur Leukocyte Esterase (Negative) Urine WBC (Auto) (0-5) /hpf Urine RBC (Auto) (0-2) /hpf U Hyaline Cast (Auto) (0-2) /lpf U Epithel Cells (Auto) (0-2) /hpf Urine Bacteria (Auto) (None Seen) Nasal Screen MRSA (PCR) (Negative) Blood Type A Positive Blood Type Recheck A Positive Antibody Screen NEGATIVE Crossmatch See Detail 12/06/23 12/06/23 12/06/23 Range/Units 13:18 12:37 12:30 WBC (4.8-10.8) K/ul RBC (4.70-6.10) M/uL Hgb (14.0-18.0) g/dl POC Hgb 9.5 L (14.0-18.0) g/dl Hct (42.0-52.0) % POC Hct 28 L (42-52) % MCV (80.0-100.0) fL MCH (25.0-34.0) pg MCHC (32.0-36.0) g/dL RDW Std Deviation (36.4-46.3) fL RDW Coeff of Yony (11.5-14.5) % Plt Count (130-400) K/uL MPV (9.4-12.4) fL Immature Gran % (Auto) % Neut % (Auto) % Lymph % (Auto) % [place] % (Auto) % Eos % (Auto) % Baso % (Auto) % Neut # (Auto) (1.40-6.50) K/uL Lymph # (Auto) (1.20-3.40) K/uL [place] # (Auto) (0.11-0.59) K/uL Eos # (Auto) (0.00-0.50) K/uL Baso # (Auto) (0.00-0.20) K/uL Immature Gran # (Auto) (0.01-0.20) K/uL PT (9.0-12.0) Seconds INR (0.9-1.1) POC Sodium 140 (135-144) mmol/L Sodium (136-145) mmol/L POC Potassium 4.1 (3.3-5.0) mmol/L Potassium (3.5-5.1) mmol/L POC Chloride 100 L (101-112) mmol/L Chloride (98-107) mmol/L Carbon Dioxide (21-32) mmol/L POC Total CO2 27 (24-31) mmol/L Anion Gap (3-11) POC Anion Gap 18.0 (16-25) mmol/L POC BUN 47 H (7-18) mg/dl BUN (6-23) mg/dl Creatinine (0.6-1.4) mg/dl POC Creatinine 2.4 H (0.6-1.3) mg/dl Est Cr Clr Drug Dosing ml/min Est GFR ( Amer) ml/min Est GFR (Non-Af Amer) ml/min BUN/Creatinine Ratio (10-20) Glucose (70-99(Fasting)) mg/dl POC Glucose (other) 96 (70-99) mg/dl Lactate 1.5 (0.4-2.0) mmol/L Calcium (8.6-10.3) mg/dl POC Ioniz Calcium Alyssa 1.07 L (1.12-1.32) mmol/l Magnesium (1.7-2.4) mg/dl Total Bilirubin (0.2-1.0) mg/dl AST (13-39) U/L ALT (7-52) U/L Alkaline Phosphatase (34-104) U/L Total Creatine Kinase (30-223) U/L Troponin I High Sens (0-20) pg/ml Total Protein (6.0-8.3) gm/dl Albumin (3.4-5.0) gm/dl Globulin (2.5-4.0) gm/dl Albumin/Globulin Ratio (0.9-2) Procalcitonin 0.04 (0-0.5) ng/ml Urine Color Urine Appearance (Clear) Urine pH (4.5-7.5) Ur Specific [place] (1.000-1.030) Urine Protein (Negative) Urine Glucose (UA) (Negative) Urine Ketones (Negative) Urine Blood (Negative) Urine Nitrite (Negative) Urine Bilirubin (Negative) Urine Urobilinogen (Negative) Ur Leukocyte Esterase (Negative) Urine WBC (Auto) (0-5) /hpf Urine RBC (Auto) (0-2) /hpf U Hyaline Cast (Auto) (0-2) /lpf U Epithel Cells (Auto) (0-2) /hpf Urine Bacteria (Auto) (None Seen) Nasal Screen MRSA (PCR) (Negative) Blood Type Blood Type Recheck Antibody Screen Crossmatch 12/06/23 Range/Units 12:29 WBC 8.90 (4.8-10.8) K/ul RBC 3.10 L (4.70-6.10) M/uL Hgb 8.3 L (14.0-18.0) g/dl POC Hgb (14.0-18.0) g/dl Hct 26.4 L (42.0-52.0) % POC Hct (42-52) % MCV 85.2 (80.0-100.0) fL MCH 26.8 (25.0-34.0) pg MCHC 31.4 L (32.0-36.0) g/dL RDW Std Deviation 54.1 H (36.4-46.3) fL RDW Coeff of Yony 17.7 H (11.5-14.5) % Plt Count 243 (130-400) K/uL MPV 11.9 (9.4-12.4) fL Immature Gran % (Auto) 0.4 % Neut % (Auto) 81.1 % Lymph % (Auto) 7.8 % [place] % (Auto) 9.9 % Eos % (Auto) 0.4 % Baso % (Auto) 0.4 % Neut # (Auto) 7.21 H (1.40-6.50) K/uL Lymph # (Auto) 0.69 L (1.20-3.40) K/uL [place] # (Auto) 0.88 H (0.11-0.59) K/uL Eos # (Auto) 0.04 (0.00-0.50) K/uL Baso # (Auto) 0.04 (0.00-0.20) K/uL Immature Gran # (Auto) 0.04 (0.01-0.20) K/uL PT 12.4 H (9.0-12.0) Seconds INR 1.2 H (0.9-1.1) POC Sodium (135-144) mmol/L Sodium 138 (136-145) mmol/L POC Potassium (3.3-5.0) mmol/L Potassium 4.1 (3.5-5.1) mmol/L POC Chloride (101-112) mmol/L Chloride 101 (98-107) mmol/L Carbon Dioxide 29 (21-32) mmol/L POC Total CO2 (24-31) mmol/L Anion Gap 8 (3-11) POC Anion Gap (16-25) mmol/L POC BUN (7-18) mg/dl BUN 57 H (6-23) mg/dl Creatinine 2.23 H (0.6-1.4) mg/dl POC Creatinine (0.6-1.3) mg/dl Est Cr Clr Drug Dosing 28.7 ml/min Est GFR ( Amer) 30.0 ml/min Est GFR (Non-Af Amer) 25.9 ml/min BUN/Creatinine Ratio 25.6 H (10-20) Glucose 100 H (70-99(Fasting)) mg/dl POC Glucose (other) (70-99) mg/dl Lactate (0.4-2.0) mmol/L Calcium 8.5 L (8.6-10.3) mg/dl POC Ioniz Calcium Alyssa (1.12-1.32) mmol/l Magnesium (1.7-2.4) mg/dl Total Bilirubin 1.1 H (0.2-1.0) mg/dl AST 31 (13-39) U/L ALT 26 (7-52) U/L Alkaline Phosphatase 182 H (34-104) U/L Total Creatine Kinase 244 H (30-223) U/L Troponin I High Sens 29.7 H (0-20) pg/ml Total Protein 7.2 (6.0-8.3) gm/dl Albumin 3.4 (3.4-5.0) gm/dl Globulin 3.8 (2.5-4.0) gm/dl Albumin/Globulin Ratio 0.9 (0.9-2) Procalcitonin (0-0.5) ng/ml Urine Color Urine Appearance (Clear) Urine pH (4.5-7.5) Ur Specific [place] (1.000-1.030) Urine Protein (Negative) Urine Glucose (UA) (Negative) Urine Ketones (Negative) Urine Blood (Negative) Urine Nitrite (Negative) Urine Bilirubin (Negative) Urine Urobilinogen (Negative) Ur Leukocyte Esterase (Negative) Urine WBC (Auto) (0-5) /hpf Urine RBC (Auto) (0-2) /hpf U Hyaline Cast (Auto) (0-2) /lpf U Epithel Cells (Auto) (0-2) /hpf Urine Bacteria (Auto) (None Seen) Nasal Screen MRSA (PCR) (Negative) Blood Type Blood Type Recheck Antibody Screen Crossmatch Diagnostic Findings Cervical Spine CT 12/06/23 12:[address] DOSE: HISTORY: Trauma TECHNIQUE: Multiaxial CT images of the cervical spine were performed and reformatted in the sagittal and coronal plane without the use of contrast. A dose lowering technique was utilized adhering to the principles of ALARA. COMPARISON: Cervical spine CT 09/02/2023. FINDINGS: No fractures. No subluxation. Prevertebral soft tissues and the C1-C2 interval are intact. No pneumothorax. IMPRESSION: No fractures within the cervical spine. ACT 112: Negative or not required by law. Electronically signed by: Mendoza Uriostegui M.D. 12/06/2023 1:58 PM Chest X-Ray 12/06/23 12:30 XR chest 1V portable HISTORY: fall COMPARISON: Chest 10/22/2023. FINDINGS: There are poststernotomy changes and left-sided pacemaker/defibrillator. The heart remains enlarged. 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 A few bibasilar linear densities consistent with subsegmental atelectasis. No evidence for pulmonary edema. There are old left-sided rib fractures. Deformity within the left posterior third rib may represent an acute fracture. Questionable tiny left apical pneumothorax. IMPRESSION: 1. Questionable tiny left apical pneumothorax. This will be better appreciated on the same day chest CT. 2. Deformity within the left posterior third rib which may represent an acute fracture. ACT 112: Negative or not required by law. Electronically signed by: Mendoza Uriostegui M.D. 12/06/2023 1:[address] 12/06/23 12:[address] DOSE: HISTORY: Trauma TECHNIQUE: Multiaxial CT images of the head were performed without the use of intravenous contrast. Automated exposure control was utilized for this study. A dose lowering technique was utilized adhering to the principles of ALARA. Comparison: Head CT 10/22/2023. Findings: The paranasal sinuses and mastoid air cells are clear. The calvarium and skull base are intact. There is no mass, hematoma, midline shift, acute infarct. White matter hypodensity is nonspecific but suggestive of microvascular ischemic change. The ventricles and sulci demonstrate mild age-related involutional changes. Impression: No acute intracranial abnormality. ACT 112: Negative or not required by law. Electronically signed by: Mendoza Uriostegui M.D. 12/06/2023 1:55 PM Abdomen/Pelvis CT 12/06/23 12:[address] WITHOUT CONTRAST CT DOSE: 3527.51 mGy.cm HISTORY: trauma TECHNIQUE: Multiaxial CT images of the abdomen and pelvis were performed without contrast. A dose lowering technique was utilized adhering to the principles of ALARA. COMPARISON STUDY: Abdomen and pelvis CT 09/09/2022. FINDINGS: The lung bases will be reported on the same day chest CT. No pneumoperitoneum. No pneumatosis. No acute fractures. Severe body wall edema is noted. There is a right lateral hip subcutaneous hematoma measuring 8.8 cm. Trace perihepatic ascites is noted. Prior cholecystectomy. No hepatic or splenic masses. The unenhanced pancreas is unremarkable. No renal stones or hydronephrosis. Moderate mesenteric and retroperitoneal edema is noted. No retroperitoneal hematoma or lymphadenopathy. Calcified plaque within the normal caliber abdominal aorta. 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 A right lateral bladder diverticulum is noted. No definite bowel wall thickening or obstruction. Colonic diverticulosis. No evidence for acute diverticulitis. IMPRESSION: 1. An 8.8 cm right lateral hip subcutaneous hematoma 2. No acute fractures identified. 3. Severe body wall edema. 4. Additional findings as described above. ACT 112: Negative or not required by law. Electronically signed by: Mendoza Uriostegui M.D. 12/06/2023 2:[address] 12/06/23 12:52 CT chest diagnostic wo con CT DOSE: HISTORY: trauma TECHNIQUE: Multiaxial CT images of the chest were performed without contrast. A dose lowering technique was utilized adhering to the principles of ALARA. COMPARISON: Chest CT 09/09/2022. FINDINGS: Poststernotomy changes and a left-sided pacemaker are noted. No acute fractures within the chest. Multiple fat-containing lesions again noted within the left shoulder which remain similar in size. These favor lipomas. Diffuse body wall edema is noted. Small right and trace left pleural effusions. No pericardial effusions. The heart is enlarged. The abdominal structures will be reported on the same day abdomen and pelvis CT. Calcified plaque within the thoracic aorta. The ascending thoracic aorta measures up to 4.1 cm in diameter. An aortic valve prosthesis is noted. Normal caliber esophagus. The thyroid gland enhances normally. No mediastinal or hilar lymphadenopathy. No mediastinal hematoma. The central airways are patent. No pneumothorax. Bibasilar linear groundglass densities favor dependent change/subsegmental atelectasis. There is mild pulmonary vascular congestion without overt edema. Small hypodense lobular density within the left lower lobe medially abutting the descending thoracic aorta measuring up to 9 mm in thickness. This may represent trace loculated pleural effusion. IMPRESSION: 1. No acute traumatic process within the chest. 2. Cardiomegaly and bilateral pleural effusions. 3. Stable fat-containing lesion within the left shoulder. 4. Additional findings as described above. ACT 112: Negative or not required by law. Electronically signed by: Mendoza Uriostegui M.D. 12/06/2023 2:10 PM PG Care Time/CCT Total # of Minutes Spent Total Time Spent with Patient: Total time spent is greater than 50% in coordination of care (as documented) at patient's floor/unit and/or counseling patient: Coding Level of Care Code 74847 SUB INP/OBS CARE 3/50MIN Diagnoses Fall W19.XXXA Hematoma of right thigh S70.11XA Unable to care for self Z78.9 UTI (urinary tract infection) N39.0 Pleural effusion J90 HTN, goal below 140/80 I10 Stage 4 chronic kidney disease N18.4 PAF (paroxysmal atrial fibrillation) I48.0 Heart failure with mildly reduced ejection fraction I50.22
[2023-12-07] MEDS: CEFEPIME 1,000 MG in SYRINGE 0 ML IV SCH (08:08)
[2023-12-07 08:36] LABS: Hematocrit (blood only) 26.7 % (42.0-52.0); Hemoglobin 8.8 g/dl (14.0-18.0); Mean Corpuscular Hemoglobin 27.5 pg (25.0-34.0); Mean Corpuscular Volume 83.4 fL (80.0-100.0); Mean Platelet Volume 11.6 fL (9.4-12.4); Platelet Count 246 K/uL (130-400); RDW Coefficient of Variation 17.9 % (11.5-14.5); RDW Standard Deviation 54.4 fL (36.4-46.3)
[2023-12-07 08:44] LABS: INR 1.1 (0.9-1.1); Prothrombin Time 11.6 Seconds (9.0-12.0)
[2023-12-07 08:51] LABS: Albumin Globulin Ratio 0.8 (0.9-2); BUN Creatinine Ratio 24.2 (10-20); Bilirubin,Total 0.8 mg/dl (0.2-1.0); Est GFR (African American) 32.1 ml/min; Est GFR (Non-African American) 27.7 ml/min; Globulin 3.6 gm/dl (2.5-4.0); Magnesium 2.4 mg/dl (1.7-2.4); Potassium 4.3 mmol/L (3.5-5.1); Total Protein 6.6 gm/dl (6.0-8.3)
[2023-12-07] MEDS ORDERED: BUMETANIDE 1 MG TAB PO SCH (09:00)
[2023-12-07] MEDS: BUMETANIDE 1 MG TAB PO SCH (10:09)
--- NOTE | 2023-12-07 11:06 | Cardiology Consultation ---
Date of Consultation December 07, 2023 Assessment & Plan (1) Hematoma of right thigh: * Pt in SR. Hold Eliquis (2) Acute on chronic combined systolic (congestive) and diastolic (congestive) heart failure: * LVEF 45% on echo in Aug, 2023 * LE edema much improved compared to when I had seen him during admission in October, * Continue current dose of oral bumex 1 mg PO BID (3) Unable to care for self: * Likely requires placement History of Present Illness Attending Physician: Breanne Fowler MD History of Present Illness Mr Rogers is an 83 year old male seen in cardiology consultation per the request of Elda Shah PA-C for the evaluation of CHF, fall, and right thigh hematoma. Patient well-known to the undersigned. Patient presented to the emergency department shortly after 12 noon on 12/06/2023. Patient presents status post fall, unknown downtime and cannot recall the details of how he ended up on the ground. EMS expressed concerns with regards to the conditions and the patient's place of residence. Allergies Allergy/AdvReac Type Severity Reaction Status Date / Time No Known Allergies Allergy Verified 12/06/23 16:03 Home Medications Medication Instructions Recorded Confirmed Type lisinopril 20 mg tablet 10 mg (1/2 x 20 mg) PO DAILY #180 11/05/22 12/06/23 Rx tabs Left Upper Extremity Compression #1 ea 07/03/23 12/02/23 Rx Sleeve atorvastatin 80 mg tablet 80 mg PO HS #90 tabs 09/15/23 12/06/23 Rx bupropion HCl 150 mg tablet,12 hr 150 mg PO BID #180 ea 09/15/23 12/06/23 Rx sustained-release levothyroxine 50 mcg tablet 50 mcg PO DAILY #90 tabs 09/15/23 12/06/23 Rx (Synthroid) amiodarone 200 mg tablet 400 mg (2 x 200 mg) PO QAM #180 09/16/23 12/06/23 Rx tabs folic acid 800 mcg tablet 800 mcg PO QAM #90 tabs 10/14/23 12/06/23 Rx galantamine 8 mg 24 hr 8 mg PO QAM #30 caps 10/14/23 12/06/23 Rx capsule,extended release apixaban 2.5 mg tablet (Eliquis) 2.5 mg PO AMHS #60 tabs 11/06/23 12/06/23 Rx bumetanide 1 mg tablet 1 mg PO BID #60 tabs 11/06/23 12/06/23 Rx cyanocobalamin (vitamin B-12) 500 500 mcg PO QAM #30 tabs 11/06/23 12/06/23 Rx mcg tablet empagliflozin 10 mg tablet 10 mg PO DAILY #90 tabs 11/06/23 12/06/23 Rx (Jardiance) omeprazole 20 mg capsule,delayed See Rx Instructions .Route 12/04/23 12/06/23 Rx release .COMPLEX #90 caps metoprolol succinate 50 mg 50 mg PO QAM 12/06/23 12/06/23 History tablet,extended release 24 hr Patient History Medical History Acute on chronic HFrEF (heart failure with reduced ejection fraction) CKD (chronic kidney disease) Atrial fibrillation Acid reflux disease Hypothyroidism Ventricular tachyarrhythmia Subclavian vein obstruction PAF (paroxysmal atrial fibrillation) Dyslipidemia, goal LDL below 70 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 COVID-19 Ventricular tachycardia Thrombocytopenia New onset atrial fibrillation Encounter for pre-operative examination Left bundle branch block Acute pancreatitis Prostate cancer PVC (premature ventricular contraction) Hyperthyroidism Hypertension Hyperhomocystinemia History of snuff use Former smoker Difficulty reading due to visual problem Cervical radiculopathy 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, 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, clinical stage TIc Status post biopsies, biopsy stage TIIa [place] grade 3+3 Status post seed implant with cesium 131 as boost 12/08/2006 Status post completion of IMRT/IGRT 02/26/2007" Surgical History History of laparoscopic cholecystectomy (11/08/21) lap ish/ercp Nov 01 Chambers Status post aortic valve replacement with bioprosthetic valve H/O aortic valve repair H/O hernia repair Family History Mother Heart disease Brother Cancer Lung cancer Unknown Prostate cancer Father Prostate cancer Denies family history of Colon cancer Ovarian cancer Myocardial infarction Breast cancer Social History Smoking Status: Never smoker Tobacco Type: Cigarettes Age Started Using Tobacco: 8; Age Quit Using Tobacco: 75; packs per day: 2.5; Second Hand Exposure: No; Do You Dip or Chew Tobacco: No; Hx Alcohol Use: No Hx Substance Use: No Preferred Language: Spanish Communication Ability: Effective Communication Ability Comment: Pt. CHALKYITSIK bilaterally Visual Impairment: No Limitations Hearing Ability: Use of Hearing Aid Trouble Shooting Mechanic Required: No Beliefs That Will Affect Care: None marital status: / Current Living Situation: Alone Current Living Situation Comment: Lives at home, alone current occupational status: retired How many Children do You have: 2 Feels Safe at Home: Yes Childhood Exposure to Second-Hand Smoke: Yes Diet: regular Diet Comment: regular caffeine: Yes during the past year weight has: remained stable Dental Care, Regularly: No Physical Activity Frequency: Does not Exercise Seatbelt Use: never Sunscreen Use: No Do you think of yourself as: straight/heterosexual Assistive Devices: Cane and Walker Review of Systems Review of Systems: Unobtainable due to cognitive status Physical Exam Constitutional: no acute distress Respiratory: no labored breathing Auscultation: + diminished lung sounds (decreased BS at the bases ) Cardiovascular: Rate/Rhythm: regular rate and regular rhythm Heart Sounds: no murmur Extremities: + edema (No LE edema, chronic left arm edema ) Right thigh / hip ecchymosis Gastrointestinal (Abdomen): normal bowel sounds, soft, nontender, no hepatosplenomegaly Neurologic: no focal deficits Results & Data Vital Signs (Past 12 Hours) Vital Signs Temp Pulse Pulse Resp BP Pulse Ox O2 Del Method 12/07/23 07:02 75 12/07/23 06:44 36.7 C 75 18 103/66 96 Room Air 12/07/23 03:37 36.3 C L 76 18 114/68 96 Room Air 12/06/23 23:11 75 12/06/23 23:05 36.5 C 75 16 100/66 95 Room Air Laboratory Results Cardiac Enzymes 12/06/23 12/06/23 12/06/23 Range/Units 12:29 14:19 19:50 AST 31 Cancelled (13-39) U/L Troponin I High Sens 29.7 H 29.6 H (0-20) pg/ml 12/06/23 12/07/23 Range/Units 21:40 07:56 AST 29 26 (13-39) U/L Troponin I High Sens (0-20) pg/ml Coagulation 12/06/23 12/07/23 Range/Units 12:29 07:56 PT 12.4 H 11.6 (9.0-12.0) Seconds CBC 12/06/23 12/06/23 12/07/23 Range/Units 12:29 19:50 00:09 WBC 8.90 8.48 7.42 (4.8-10.8) K/ul RBC 3.10 L 3.28 L 3.08 L (4.70-6.10) M/uL Hgb 8.3 L 8.9 L 8.4 L (14.0-18.0) g/dl Hct 26.4 L 28.4 L 26.3 L (42.0-52.0) % Plt Count 243 220 225 (130-400) K/uL Neut # (Auto) 7.21 H (1.40-6.50) K/uL Lymph # (Auto) 0.69 L (1.20-3.40) K/uL Burnet # (Auto) 0.88 H (0.11-0.59) K/uL Eos # (Auto) 0.04 (0.00-0.50) K/uL Baso # (Auto) 0.04 (0.00-0.20) K/uL 12/07/23 Range/Units 07:56 WBC 7.80 (4.8-10.8) K/ul RBC 3.20 L (4.70-6.10) M/uL Hgb 8.8 L (14.0-18.0) g/dl Hct 26.7 L (42.0-52.0) % Plt Count 246 (130-400) K/uL Neut # (Auto) (1.40-6.50) K/uL Lymph # (Auto) (1.20-3.40) K/uL Burnet # (Auto) (0.11-0.59) K/uL Eos # (Auto) (0.00-0.50) K/uL Baso # (Auto) (0.00-0.20) K/uL Comprehensive Metabolic Panel 12/06/23 12/06/23 12/06/23 Range/Units 12:29 19:50 21:40 Sodium 138 Cancelled 138 (136-145) mmol/L Potassium 4.1 Cancelled 4.0 (3.5-5.1) mmol/L Chloride 101 Cancelled 103 (98-107) mmol/L Carbon Dioxide 29 Cancelled 32 (21-32) mmol/L BUN 57 H Cancelled 52 H (6-23) mg/dl Creatinine 2.23 H Cancelled 2.31 H (0.6-1.4) mg/dl Glucose 100 H Cancelled 116 H (70-99(Fasting)) mg/dl Calcium 8.5 L Cancelled 8.0 L (8.6-10.3) mg/dl AST 31 Cancelled 29 (13-39) U/L ALT 26 Cancelled 24 (7-52) U/L Alkaline Phosphatase 182 H Cancelled 170 H (34-104) U/L Total Protein 7.2 Cancelled 6.8 (6.0-8.3) gm/dl Albumin 3.4 Cancelled 3.1 L (3.4-5.0) gm/dl 12/07/23 Range/Units 07:56 Sodium 140 (136-145) mmol/L Potassium 4.3 (3.5-5.1) mmol/L Chloride 104 (98-107) mmol/L Carbon Dioxide 33 H (21-32) mmol/L BUN 51 H (6-23) mg/dl Creatinine 2.11 H (0.6-1.4) mg/dl Glucose 112 H (70-99(Fasting)) mg/dl Calcium 8.0 L (8.6-10.3) mg/dl AST 26 (13-39) U/L ALT 22 (7-52) U/L Alkaline Phosphatase 166 H (34-104) U/L Total Protein 6.6 (6.0-8.3) gm/dl Albumin 3.0 L (3.4-5.0) gm/dl Intake and Output 12/06/23 12/07/23 12/07/23 22:59 06:59 14:59 Intake Total 1310 / 1310 Output Total 200 / 200 Balance 1310 / 1110 -200 / 1110 Intake: IV 1110 / 1110 Calcium Gluconate 1,000 mg In 60 / 60 60 ml @ 240 mls/hr IV NOW STA Rx#:[id number] Sodium Chloride 0.9% 1,000 ml @ 1000 / 1000 999 mls/hr IV .Q1H1M ONE Rx#: [id number] cefTRIAXone SODIUM 2,000 mg In 50 / 50 50 ml @ 100 mls/hr IV NOW STA Rx#:[id number] Oral 200 / 200 Output: Urine 200 / 200 Other: Other Intake Source Sips # Unmeasured Voids 2 Weight 95.2 kg 97.7 kg Weight Measurement Method Built in [facility] Built in [facility] Diagnostic Findings Summary of CT abdomen and pelvis performed 12/06/2023: 1. An 8.8 cm right lateral hip subcutaneous hematoma 2. No acute fractures identified. 3. Severe body wall edema. Noncontrast CT of the chest 12/06/2023: Small right and trace left pleural effusions No pericardial effusion Ascending aorta mildly enlarged 4.1 cm here is mild pulmonary vascular congestion without overt edema. Small hypodense lobular density within the left lower lobe medially abutting the descending thoracic aorta measuring up to 9 mm in thickness. This may represent trace loculated pleural effusion. EKG performed 12/06/2023 reviewed independently: Sinus rhythm with AV sequential pacing at 75 bpm. Remote AICD interrogation performed today revealing sinus rhythm, atrial paced, ventricular paced 100% of the time, no recent ventricular arrhythmias that would correlate with this fall. Cardiac problem list: 1. 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 Sustained VT s/p BiV ICD 03/2022; prior episodes on device check September 14 several episodes of NSVT and sustained VT got ATP received for a few of them. Repeat check 12/2022 shows 7 VT episodes with ATP attempted. 3. Acute on chronic heart failure with reduced EF, NYHA Class III 4. Severe due to bicuspid AV s/p bioprosthetic AVR by Dr. Barnes 04/24/2010 5. 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 Patient was known to have an anomalous left circumflex coronary artery which was not engaged or evaluated was felt that there was a low risk that that vessel was contributing. 6. HTN 7. Pulmoanry HTN 8. HLD 9. LBBB 10. pAF on amiodarone and toprol and eliquis [id number] 4(age, CAD, HTN) 11. H/o prostate cancer 12. Depression 13. Pre-diabetes
[2023-12-07 13:18] LABS: Hematocrit (blood only) 27.2 % (42.0-52.0); Hemoglobin 8.6 g/dl (14.0-18.0); Mean Corpuscular Hgb Conc 31.6 g/dL (32.0-36.0); Mean Corpuscular Volume 85.5 fL (80.0-100.0); Mean Platelet Volume 11.1 fL (9.4-12.4); Platelet Count 244 K/uL (130-400); RDW Coefficient of Variation 17.8 % (11.5-14.5); RDW Standard Deviation 55.3 fL (36.4-46.3); Red Blood Count 3.18 M/uL (4.70-6.10); White Blood Count 7.42 K/ul (4.8-10.8)
[2023-12-08 07:45] LABS: Basophils # (auto) 0.05 K/uL (0.00-0.20); Basophils % (auto) 0.6 %; Eosinophils # (auto) 0.23 K/uL (0.00-0.50); Hematocrit (blood only) 25.6 % (42.0-52.0); Hemoglobin 8.4 g/dl (14.0-18.0); Immature Granulocytes # (auto) 0.02 K/uL (0.01-0.20); Immature Granulocytes % (auto) 0.3 %; Lymphocytes % (auto) 16.8 %; Mean Corpuscular Hemoglobin 27.2 pg (25.0-34.0); Mean Corpuscular Hgb Conc 32.8 g/dL (32.0-36.0); Mean Corpuscular Volume 82.8 fL (80.0-100.0); Mean Platelet Volume 11.6 fL (9.4-12.4); Monocytes % (auto) 10.4 %; Neutrophils # (auto) 5.32 K/uL (1.40-6.50); Neutrophils % (auto) 68.9 %; Platelet Count 233 K/uL (130-400); RDW Standard Deviation 53.9 fL (36.4-46.3); Red Blood Count 3.09 M/uL (4.70-6.10); White Blood Count 7.72 K/ul (4.8-10.8)
[2023-12-08 07:55] LABS: Albumin Globulin Ratio 0.8 (0.9-2); Albumin Level 2.9 gm/dl (3.4-5.0); BUN Creatinine Ratio 22.2 (10-20); Bilirubin,Total 0.7 mg/dl (0.2-1.0); Calcium 7.8 mg/dl (8.6-10.3); Creatinine Clr Calc Pharmacy 26.1 ml/min; Est GFR (African American) 27.1 ml/min; Est GFR (Non-African American) 23.4 ml/min; Globulin 3.5 gm/dl (2.5-4.0); Magnesium 2.3 mg/dl (1.7-2.4); Potassium 4.5 mmol/L (3.5-5.1); Total Protein 6.4 gm/dl (6.0-8.3)
--- NOTE | 2023-12-08 12:26 | Cardiology Progress Note ---
Date of Service December 08, 2023 Assessment & Plan (1) Hematoma of right thigh: Plan: * Pt in SR. Hold Michele (2) Acute on chronic combined systolic (congestive) and diastolic (congestive) heart failure: Plan: * LVEF 45% on echo in Aug, 2023 * LE edema much improved compared to when I had seen him during admission in October, * Continue current dose of oral bumex 1 mg PO BID. Creatinine trended up to 2.43 however leg swelling well controlled. Accept current level of azotemia. (3) Unable to care for self: Plan: * Case management input noted and appreciated. Referral made to [facility] [employer] [facility] * Son , Pancho, at bedside today. * Pt states he would like to get his house ready to sell and then move to a higher level of care. I am not sure how motivated , or how much support pt has to make that happen. Admission and Anticipated Discharge Date Admission Date: December 06, 2023 Review of Systems Review of Systems: All systems reviewed & are unremarkable except as noted in HPI & below Physical Exam Constitutional: no acute distress Respiratory: no labored breathing Auscultation: + diminished lung sounds (decreased BS at the bases ) Cardiovascular: Rate/Rhythm: regular rate and regular rhythm Heart Sounds: no murmur Extremities: + edema (No LE edema, chronic left arm edema ) Gastrointestinal (Abdomen): normal bowel sounds, soft, nontender, no hepatosplenomegaly Results & Data Vital Signs (Past 12 Hours) Vital Signs Temp Pulse Pulse Pulse Resp BP Pulse Ox 12/08/23 12:03 36.6 C 75 18 121/79 95 12/08/23 07:59 36.8 C 75 18 123/78 94 12/08/23 07:13 75 12/08/23 03:52 36.5 C 75 20 118/77 93 12/08/23 01:16 O2 Del Method 12/08/23 12:03 Room Air 12/08/23 07:59 Room Air 12/08/23 07:13 12/08/23 03:52 Room Air 12/08/23 01:16 Room Air Laboratory Results Cardiac Enzymes 12/08/23 Range/Units 06:48 AST 21 (13-39) U/L CBC 12/07/23 12/08/23 Range/Units 12:52 06:48 WBC 7.42 7.72 (4.8-10.8) K/ul RBC 3.18 L 3.09 L (4.70-6.10) M/uL Hgb 8.6 L 8.4 L (14.0-18.0) g/dl Hct 27.2 L 25.6 L (42.0-52.0) % Plt Count 244 233 (130-400) K/uL Neut # (Auto) 5.32 (1.40-6.50) K/uL Lymph # (Auto) 1.30 (1.20-3.40) K/uL [place]cdonough # (Auto) 0.80 H (0.11-0.59) K/uL Eos # (Auto) 0.23 (0.00-0.50) K/uL Baso # (Auto) 0.05 (0.00-0.20) K/uL Comprehensive Metabolic Panel 12/08/23 Range/Units 06:48 Sodium 137 (136-145) mmol/L Potassium 4.5 (3.5-5.1) mmol/L Chloride 103 (98-107) mmol/L Carbon Dioxide 29 (21-32) mmol/L BUN 54 H (6-23) mg/dl Creatinine 2.43 H D (0.6-1.4) mg/dl Glucose 97 (70-99(Fasting)) mg/dl Calcium 7.8 L (8.6-10.3) mg/dl AST 21 (13-39) U/L ALT 19 (7-52) U/L Alkaline Phosphatase 152 H (34-104) U/L Total Protein 6.4 (6.0-8.3) gm/dl Albumin 2.9 L (3.4-5.0) gm/dl Intake and Output 12/07/23 12/08/23 12/08/23 22:59 06:59 14:59 Intake Total 150 / 910 100 / 910 Output Total 100 / 300 100 / 300 Balance 50 0 Intake: Oral 150 / 910 100 / 910 Output: Urine Amount (Catheter) 100 / 300 100 / 300 External 100 / 300 100 / 300 Other: Weight 97.7 kg 98.4 kg Weight Measurement Method Standing Scale
--- NOTE | 2023-12-08 18:26 | Hospitalist Progress Note ---
Date of Service December 08, 2023 Assessment & Plan (1) Fall: Plan: Patient presented to the ED as a trauma alert after he was found down outside his home this morning by a neighbor, unwitnessed fall and unsure of exact time he initially fell His home reportedly was in disarray and they are significant concerns he is unable to care for himself Noted to have a large right thigh hematoma but is otherwise without acute trauma Patient has a history of recurrent falls previously and is on Eliquis for atrial fibrillation Fall/aspiration precautions PT/OT consults, case management consult Bilateral SCDs for DVT prophylaxis until we deem him safe from a bleeding perspective Heart healthy diet with 2 g sodium and 1800 mL fluid restriction - Hospitalized last month for cellulitis/acute on chronic CHF, and recs for rehab but wanted to go home and was dc w/ HH services. * Had lisinopril held at dc until cards follow up and had diuretics changed to bumex and dc on 1mg daily which appears to have been increased to 1mg BID at some point in follow up with Dr Headley from nephrology but cards rec for 2mg daily bumex at ne. Seen by nephrology and icnreased to 1mg BID (however does miss dosing frequently if he has to run errands) Hgb stable w/ hematoma. Monitor for any worsening. Serial H&H Pacemaker interogation without evidence for Vtach/Vfib. Cards consulted, continue to hold Eliquis Ok to continue bumex 1mg BID PT/OT evals, recs for rehab. Ongoing encouragement for rehab as do not suspect able to safely take care of himself presently (2) Hematoma of right thigh: Plan: Large RIGHT thigh hematoma on CT/exam on admission Eliquis placed on hold for now, type/screen Hgb stable at present but 2u PRBC available if needed Serial H&H/exams. Monitor for any infection. Oncefepime for above UTI coverage (3) Unable to care for self: Plan: Patient has a long history of difficulty living at home by himself as he is an extremely high fall risk and falls frequently His home was reportedly in disarray when EMS arrived, he has very poor hygiene on admission Case management consult has been placed as there was word that a possible office of aging evaluation may be needed PT/OT evals recs for rehab, ongoing encouragement required daily (4) UTI (urinary tract infection): Plan: UA appeared infected. Prior +cx for klebsieall/pseuomonas Urine culture showed mixed probable skin zi. Cefepime discontinued 12/08/23. Monitor I&O, UOP (5) Pleural effusion: Plan: CT of the chest without contrast noted possible trace loculated pleural effusion in the left lower lobe Stable on RA, procal not signifcantly elevated. Continue cefepime as above. Procal 0.04 Bumex resumed and suspect 2nd to noncompliance, however edema to legs MUCH imprved from last month (6) HTN, goal below 140/80: Plan: BP stable/borderline at times. Given IVF on admission/bumex on hold Continued metoprolol, bumex RESUMED Monitor for lisinopril but was held last admission w/ CKD. Monitor to resume if able vs continue w/ bumex therapy (7) Stage 4 chronic kidney disease: Plan: Renal function is currently stable Avoid nephrotoxic agents Monitor daily (8) PAF (paroxysmal atrial fibrillation): Plan: Currently in a dual AV paced rhythm Continue metoprolol and amiodarone Hold Eliquis for now until deemed stable from a bleeding risk Pacemaker interrogation w/o abnormality noted as above Keep mag/K replete, telemetry monitoring w/ paced rhythm (9) Heart failure with mildly reduced ejection fraction: Plan: Bumex resumed as above, avoid excessive IVF On room air Monitor weight/I&O Plan continued inpatient stay, diuretics resumed, monitor hematoma PT/OT consults recs for rehab -- continued encouragement as do not think able to care for himself presently and wanted the same last admission a month ago. CODE STATUS: Full code Admission and Anticipated Discharge Date Admission Date: December 06, 2023 Subjective Patient seen and evaluated at bedside. He reports that he feels well. He denies any pain, lightheadedness, dizziness, chest pain, shortness of breath. We discussed going to rehab upon discharge from the hospital given his recurrent admissions due to falling at home/unable to care for himself at home. Patient reported that he cannot go to rehab because he "has 80 guns in a pile at home" that he needs to secure. He notes that he would be agreeable to rehab if he could go home for 6-7 days first; I told him that unfortunately, that is not how rehab placement works and he would have to go from the hospital. Patient then continued to deny rehab placement and states that he is hopeful after another day or 2 in the hospital he will be able to safely return home. No additional complaints or concerns at this time. Physical Exam Physical Exam: General: No acute distress, nondiaphoretic, chronically ill-appearing, poor hygiene. Skin: Right thigh hematoma. Bilateral lower extremity edema, improved. Chronic LUE lymphedema. Cardiac: Regular rate and rhythm. Systolic murmur noted. Pulm: Slightly diminished in the bases, but otherwise clear to auscultation. No respiratory distress. 94% on room air. Abdominal: Positive bowel sounds x 4. Soft, nontender, without masses or organomegaly. No guarding or rebound tenderness. Neuro: A&O x3. No focal neurological deficits. Poor insight regarding medical care. Results & Data Results & Data Vital Signs (Past 12 Hours) Vital Signs Temp Pulse Pulse Pulse Resp BP Pulse Ox 12/08/23 15:59 36.6 C 75 18 116/76 94 12/08/23 14:29 75 12/08/23 12:03 36.6 C 75 18 121/79 95 12/08/23 07:59 36.8 C 75 18 123/78 94 12/08/23 07:13 75 O2 Del Method 12/08/23 15:59 Room Air 12/08/23 14:29 12/08/23 12:03 Room Air 12/08/23 07:59 Room Air 12/08/23 07:13 Laboratory Results Reviewed CBC Reviewed CMP PG Care Time/CCT Total # of Minutes Spent Total Time Spent with Patient: Total time spent is greater than 50% in coordination of care (as documented) at patient's floor/unit and/or counseling patient: Coding Level of Care Code 25500 SUB INP/OBS CARE 2/35MIN Diagnoses Fall W19.XXXA Hematoma of right thigh S70.11XA Unable to care for self Z78.9 UTI (urinary tract infection) N39.0 Pleural effusion J90 HTN, goal below 140/80 I10 Stage 4 chronic kidney disease N18.4 PAF (paroxysmal atrial fibrillation) I48.0 Heart failure with mildly reduced ejection fraction I50.22
[2023-12-09 06:48] LABS: Hematocrit (blood only) 28.5 % (42.0-52.0); Hemoglobin 9.2 g/dl (14.0-18.0); Mean Corpuscular Hemoglobin 27.3 pg (25.0-34.0); Mean Corpuscular Hgb Conc 32.3 g/dL (32.0-36.0); Mean Corpuscular Volume 84.6 fL (80.0-100.0); Platelet Count 233 K/uL (130-400); RDW Coefficient of Variation 17.7 % (11.5-14.5); Red Blood Count 3.37 M/uL (4.70-6.10); White Blood Count 8.34 K/ul (4.8-10.8)
[2023-12-09 07:20] LABS: Albumin Globulin Ratio 0.8 (0.9-2); BUN Creatinine Ratio 22.9 (10-20); Bilirubin,Total 0.7 mg/dl (0.2-1.0); Creatinine Clr Calc Pharmacy 27.5 ml/min; Est GFR (African American) 28.8 ml/min; Est GFR (Non-African American) 24.8 ml/min; Globulin 3.7 gm/dl (2.5-4.0); Magnesium 2.2 mg/dl (1.7-2.4); Potassium 3.7 mmol/L (3.5-5.1); Total Protein 6.7 gm/dl (6.0-8.3)
--- NOTE | 2023-12-09 08:20 | Hospitalist Progress Note ---
Date of Service December 09, 2023 Assessment & Plan (1) Fall: Plan: Patient presented to the ED as a trauma alert after he was found down outside his home this morning by a neighbor, unwitnessed fall and unsure of exact time he initially fell His home reportedly was in disarray and they are significant concerns he is unable to care for himself Noted to have a large right thigh hematoma but is otherwise without acute trauma. Hgb stable w/ hematoma. Monitor for any worsening. Patient has a history of recurrent falls previously and is on Eliquis for atrial fibrillation Fall/aspiration precautions PT/OT consults, case management consult Bilateral SCDs for DVT prophylaxis until we deem him safe from a bleeding perspective Heart healthy diet with 2 g sodium and 1800 mL fluid restriction - Hospitalized last month for cellulitis/acute on chronic CHF, and recs for rehab but wanted to go home and was dc w/ HH services. * Had lisinopril held at discharge until cardiology follow up, and had diuretics changed to Bumex 1mg daily on discharge which appears to have been increased to 1mg BID at some point in follow up with Dr Headley from nephrology - Cardiology consulted, continue to hold Eliquis. * Continue with Bumex 1 mg PO BID. Creatinine uptrended to 2.4, however, leg swelling is controlled. Will accept current level of azotemia. - PT/OT jw, recs for rehab. Ongoing encouragement for rehab as do not suspect able to safely take care of himself presently. - Patient ultimately agreed to go to rehab. Referral has been sent out to [facility]. (2) Hematoma of right thigh: Plan: Large RIGHT thigh hematoma on CT/exam on admission - Hgb 8.3 on admission - Eliquis placed on hold for now - Hgb stable at 9.2 on 12/08 (3) Unable to care for self: Plan: Patient has a long history of difficulty living at home by himself as he is an extremely high fall risk and falls frequently - His home was reportedly in disarray when EMS arrived, he has very poor hygiene on admission - Case management consult has been placed as there was word that a possible o ffice of aging evaluation may be needed - PT/OT yaredals recs for rehab, ongoing encouragement required daily - Patient agreeable to rehab at this time. Referral made to [facility] (4) UTI (urinary tract infection): Plan: UA appeared infected. Prior urine cultures grew klebsiella/pseudomonas Urine culture showed mixed probable skin zi. Cefepime discontinued 12/08/23. Monitor I&O, UOP (5) Pleural effusion: Plan: CT of the chest without contrast noted possible trace loculated pleural effusion in the left lower lobe - Stable on RA, procal not elevated at 0.04 - Bumex resumed and suspect pleural effusion is secondary to noncompliance, however edema to legs MUCH improved from last month (6) HTN, goal below 140/80: Plan: BP stable/borderline at times. Given IVF on admission/bumex on hold - Continued metoprolol, bumex RESUMED - Monitor for lisinopril but was held last admission w/ CKD. Monitor to resume if able vs continue w/ bumex therapy (7) Stage 4 chronic kidney disease: Plan: Renal function is currently stable - Baseline creatinine around 2.0-2.2 - Avoid nephrotoxic agents - Per review of nephrology note on 11/05, patient may eventually need higher dose of diuretic to improve the volume status which may cause worsening of kidney function or critical electrolyte abnormality and eventually may need to consider renal replacement therapy. (8) Heart failure with mildly reduced ejection fraction: Plan: Bumex resumed as above On room air Monitor weight/I&O Plan Updated significant other at bedside Reviewed prior nephrology notes Reviewed prior cardiology notes Discussed discharge planning with case management continued inpatient stay, diuretics resumed, monitor hematoma PT/OT consults recs for rehab -- continued encouragement as do not think able to care for himself presently. Patient now agreeable to rehab. Referral made to [facility]. CODE STATUS: Full code Admission and Anticipated Discharge Date Admission Date: December 06, 2023 Subjective Patient seen and evaluated at bedside this morning. He reports that he feels well. We again discussed rehab at length, and patient continued to decline at that time. Moved forward with the plan of discharging home with home health services. I was then contacted by case management that patient's family does not want him to return home, and that the family was going to try to convince him to go to rehab as they have concerns about him returning home safely. Shortly after that, RN informed me that patient is concerned about going home as his "knees buckled" when standing. He then informed his RN that he will not make any decisions without talking with me. I returned to bedside to discuss with him and his significant other, Sonia. Patient ultimately agreed to go to rehab at this time. Referrals sent by case management. No additional complaints or concerns at this time. Physical Exam Physical Exam: General: No acute distress, nondiaphoretic, chronically ill-appearing, poor hygiene. Skin: Right thigh hematoma. Bilateral lower extremity edema, significantly improved. Chronic LUE lymphedema. Cardiac: Regular rate and rhythm. Systolic murmur noted. Pulm: Slightly diminished in the bases, but otherwise clear to auscultation. No respiratory distress. 96% on room air. Abdominal: Soft, nontender, nondistended. Bowel sounds present. Neuro: A&O x3. No focal neurological deficits. Poor insight regarding medical care. Results & Data Results & Data Vital Signs (Past 12 Hours) Vital Signs Temp Pulse Pulse Pulse Resp BP Pulse Ox 12/09/23 08:01 36.7 C 77 20 131/82 94 12/09/23 03:40 36.4 C L 75 18 119/75 94 12/08/23 22:51 36.4 C L 77 18 124/83 96 12/08/23 21:45 75 O2 Del Method 12/09/23 08:01 Room Air 12/09/23 03:40 Room Air 12/08/23 22:51 Room Air 12/08/23 21:45 Laboratory Results Reviewed CBC Reviewed BMP PG Care Time/CCT Total # of Minutes Spent Total Time Spent with Patient: Total time spent is greater than 50% in coordination of care (as documented) at patient's floor/unit and/or counseling patient: Coding Level of Care Code 01114 SUB INP/OBS CARE 3/50MIN Diagnoses Fall W19.XXXA Hematoma of right thigh S70.11XA Unable to care for self Z78.9 UTI (urinary tract infection) N39.0 Pleural effusion J90 HTN, goal below 140/80 I10 Stage 4 chronic kidney disease N18.4 Heart failure with mildly reduced ejection fraction I50.22
--- NOTE | 2023-12-09 15:41 | Electrocardiogram Report ---
Test Reason : Blood Pressure : */* mmHG Vent. Rate : 75 BPM Atrial Rate : 75 BPM P-R Int : 126 ms QRS Dur : 202 ms QT Int : 542 ms P-R-T Axes : * -83 109 degrees QTcB Int : 605 ms AV dual-paced rhythm Abnormal ECG When compared with ECG of 22-Oct-2023 15:04, Vent. rate has decreased by 14 bpm Confirmed by Steffany Rubio ([id number]) on 12/06/2023 7:20:20 PM Referred By: Confirmed By: Steffany Rubio
--- NOTE | 2023-12-09 17:28 | Cardiology Progress Note ---
Date of Service December 09, 2023 Assessment & Plan (1) Hematoma of right thigh: Plan: * Pt in SR. Hold Eliquis (2) Acute on chronic combined systolic (congestive) and diastolic (congestive) heart failure: Plan: * LVEF 45% on echo in Aug, 2023 * LE edema much improved compared to when I had seen him during admission in October, * Continue current dose of oral bumex 1 mg PO BID. Creatinine trended up to 2.43 -->2.31, however leg swelling well controlled. Accept current level of azotemia. (3) Unable to care for self: Plan: * Case management input noted and appreciated. * PT evaluation reviewed. Pt agreeable to inpatient rehab. * This is likely a temporizing measure , however, because overall not fell to be able to care for himself at home. Admission and Anticipated Discharge Date Admission Date: December 06, 2023 Subjective Pt seen in follow up. He is in good spirits. No subjective SOB at rest. Telemetry reveals SR with AV sequential pacing. He acknowledges he needs PT. Physical Exam Constitutional: no acute distress Respiratory: no labored breathing Auscultation: + diminished lung sounds (decreased BS at the bases ) Cardiovascular: Rate/Rhythm: regular rate and regular rhythm Heart Sounds: no murmur Extremities: + edema (No LE edema, chronic left arm edema ) Gastrointestinal (Abdomen): normal bowel sounds, soft, nontender, no hepatosplenomegaly Results & Data Vital Signs (Past 12 Hours) Vital Signs Temp Pulse Pulse Resp BP Pulse Ox O2 Del Method 12/09/23 15:46 36.3 C L 74 18 128/80 96 Room Air 12/09/23 11:22 36.3 C L 75 19 112/76 98 Room Air 12/09/23 08:01 36.7 C 77 20 131/82 94 Room Air 12/09/23 08:00 Nasal Cannula
[2023-12-10 07:55] LABS: Hemoglobin 8.6 g/dl (14.0-18.0); Mean Corpuscular Hemoglobin 27.5 pg (25.0-34.0); Mean Corpuscular Hgb Conc 33.1 g/dL (32.0-36.0); Mean Corpuscular Volume 83.1 fL (80.0-100.0); Mean Platelet Volume 11.5 fL (9.4-12.4); Platelet Count 240 K/uL (130-400); RDW Standard Deviation 54.3 fL (36.4-46.3); Red Blood Count 3.13 M/uL (4.70-6.10); White Blood Count 7.05 K/ul (4.8-10.8)
[2023-12-10 08:16] LABS: BUN Creatinine Ratio 24.7 (10-20); Calcium 7.9 mg/dl (8.6-10.3); Est GFR (African American) 34.7 ml/min; Est GFR (Non-African American) 29.9 ml/min; Potassium 3.6 mmol/L (3.5-5.1)
[2023-12-10 08:43] VITALS: PULSE 75
[2023-12-10 12:01] VITALS: BP 135/84; RESP 20; TEMP 97.9; O2SAT 97
--- NOTE | 2023-12-10 19:27 | Discharge Summary ---
Discharge Summary Date of Service December 10, 2023 Principal Dx & Hospital Course #1 = Principal Diagnosis (1) Fall: Patient presented to the ED as a trauma alert after he was found down outside his home this morning by a neighbor, unwitnessed fall and unsure of exact time he initially fell His home reportedly was in disarray and they are significant concerns he is unable to care for himself Noted to have a large right thigh hematoma but is otherwise without acute trauma. Hgb stable w/ hematoma. Monitor for any worsening. Patient has a history of recurrent falls previously and is on Eliquis for atrial fibrillation Fall/aspiration precautions PT/OT consults, case management consult Bilateral SCDs for DVT prophylaxis until we deem him safe from a bleeding perspective Heart healthy diet with 2 g sodium and 1800 mL fluid restriction - Hospitalized last month for cellulitis/acute on chronic CHF, and recs for rehab but wanted to go home and was dc w/ HH services. * Had lisinopril held at discharge until cardiology follow up, and had diuretics changed to Bumex 1mg daily on discharge which appears to have been increased to 1mg BID at some point in follow up with Dr Headley from nephrology - Cardiology consulted, continue to hold Eliquis until at least 12/13/23 due to hematoma. * Continue with Bumex 1 mg PO BID. Creatinine uptrended to 2.4, however, leg swelling is controlled. Will accept current level of azotemia. - PT/OT jw, recs for rehab. Ongoing encouragement for rehab as do not suspect able to safely take care of himself presently. - Patient ultimately agreed to go to rehab. Discharged to [facility] 12/10/23. (2) Hematoma of right thigh: Large RIGHT thigh hematoma on CT/exam on admission - Hgb 8.3 on admission - Eliquis held until 12/13/23 - Hgb stable at 9.2 on 12/08 (3) Unable to care for self: Patient has a long history of difficulty living at home by himself as he is an extremely high fall risk and falls frequently - His home was reportedly in disarray when EMS arrived, he has very poor hygiene on admission - Case management consult has been placed as there was word that a possible office of aging evaluation may be needed - PT/OT yaredals recs for rehab, ongoing encouragement required daily - Patient agreeable to rehab and was discharged to [facility] 12/09 (4) UTI (urinary tract infection): UA appeared infected. Prior urine cultures grew klebsiella/pseudomonas Urine culture showed mixed probable skin zi. Cefepime discontinued 12/08/23. Monitor I&O, UOP (5) Pleural effusion: CT of the chest without contrast noted possible trace loculated pleural effusion in the left lower lobe - Stable on RA, procal not elevated at 0.04 - Bumex resumed and suspect pleural effusion is secondary to noncompliance, however edema to legs MUCH improved from last month (6) HTN, goal below 140/80: BP stable/borderline at times. Given IVF on admission/bumex on hold - Continued metoprolol, bumex RESUMED - Monitor for lisinopril but was held last admission w/ CKD. Monitor to resume if able vs continue w/ bumex therapy (7) Stage 4 chronic kidney disease: Renal function is currently stable - Baseline creatinine around 2.0-2.2 - Avoid nephrotoxic agents - Per review of nephrology note on 11/05, patient may eventually need higher dose of diuretic to improve the volume status which may cause worsening of kidney function or critical electrolyte abnormality and eventually may need to consider renal replacement therapy. (8) Heart failure with mildly reduced ejection fraction: Bumex resumed as above On room air Monitor weight/I&O Plan continued inpatient stay, diuretics resumed, monitor hematoma PT/OT consults recs for rehab -- continued encouragement as do not think able to care for himself presently. Patient now agreeable to rehab. Referral made to [facility]. 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 Patient was reportedly found by a neighbor who called EMS. EMS reported that his house was extremely cluttered and difficult to maneuvering. He was brought to the ED due to being found down and to begin the case with the area of aging. He remained stable in the ED. Labs were significant for hemoglobin 8.3 (down from 10.7 as of 10/31/2023), hematocrit of 26, MCHC of 31, INR 1.2, creatinine of 2.230 (appears near baseline), ionized calcium of 1.07, CK of 244, initial high-sensitivity troponin as well as repeat high-sensitivity troponin of 29, with UA consistent with UTI. CT of the head and brain without contrast and CT of the cervical spine were read as negative for acute findings. Chest x-ray was read as questionable tiny left apical pneumothorax. This will be better appreciated on same-day chest CT. Deformity within the left posterior third rib which may represent an acute fracture. CT of the chest was read as no acute traumatic process within the chest. Cardiomegaly and bilateral pleural effusions. Stable fat-containing lesion within the left s no pneumothorax was noted. Small hypodense lobular density within the left lower lobe medially abutting the descending thoracic aorta measuring up to 9 mm in thickness. This may represent trace loculated pleural effusion. CT of the abdomen pelvis without contrast was read as an 8.8 cm right lateral hip subcutaneous hematoma. Severe body wall edema. But was negative for acute fractures. Prior to admission the patient was given 1 L normal saline and 2 mg IV ceftriaxone. Patient was sitting in bed in no acute distress at time of exam. Patient is a poor historian at baseline as he is well-known to our service from multiple past admissions. Confirms that he did fall states it was early this morning but cannot give me further details surrounding her fall. He was unable to get himself up and eventually called out to a neighbor when he saw them outside. Denies hitting his head or losing consciousness. Only pain at this time is some soreness in the right thigh. Denies recent fever, chills, chest pain, head/neck/back pain, abdominal pain, nausea/vomiting, diarrhea, melena. Does note some dyspnea on exertion which she is experienced in the past. When asked who helps to care for him he states that he has a friend who lives approximately 1 and half miles away who will come and visit. States that his family does not come by frequently. Wishes to be full code and for his children to make medical decisions for him if he cannot make them himself. States that he has not had any of his normal medications yet today Please refer to Dr. Altamirano's attestation for any changes to the treatment plan Discharge Exam General: No acute distress, nondiaphoretic, chronically ill-appearing, poor hygiene. Skin: Right thigh hematoma. Bilateral lower extremity edema, significantly improved. Chronic LUE lymphedema. Cardiac: Regular rate and rhythm. Systolic murmur noted. Pulm: Slightly diminished in the bases, but otherwise clear to auscultation. No respiratory distress. 96% on room air. Abdominal: Soft, nontender, nondistended. Bowel sounds present. Neuro: A&O x3. No focal neurological deficits. Poor insight regarding medical care. Discharge Plan Discharge Items Patient Disposition: Transfer [facility] Fac Reason For Visit: TRAUMA ALERT, FOUND DOWN, RIGHT THIGH HEMATOMA Discharge Diagnosis: Right thigh hematoma secondary to fall, unable to care for self Activity: Resume your previous activity Non-emergency contact: Primary Care Provider Call non-emergency contact if: you have any medication questions and your symptoms worsen Follow-up/Referrals: Juan Manuel Early III, CRNP [Primary Care Provider] - Diet: Heart Healthy and Low Sodium (2gm) Fluids: 1800ml (7 cups) Addtl Attending Provider Instructions: FOR CENTRE CARE: Patient presented after an unwitnessed fall outside of his home. He was noted to have a large right thigh hematoma but is otherwise without acute trauma. Hold Eliquis until 12/13/2023 given hematoma. Continue Bumex 1 mg twice daily; creatinine slightly up trended with this, however leg swelling is significantly improved. Will except current level of azotemia. Continue all other home medications as prescribed. Patient has a long history of difficulty living at home by himself as he is an extremely high fall risk and falls frequently. Pending Studies at Discharge: No Stand-Alone Forms: [employer], Smoking Cessation Skilled Items Patient informed of condition?: Yes DNR: No Discharge Level of Care: Acute rehab Communicable Disease: No Discharge Prognosis: Stable Lines: None Urinary Catheter: No Medications and DC Order Prescriptions: Continued (DME) Left Upper Extremity Compression Sleeve See Rx Instructions .Route .MEDSUPPLY Qty: 1 0RF Rx Instructions: As directed atorvastatin 80 mg tablet 80 mg PO HS Qty: 90 3RF bupropion HCl 150 mg tablet sustained-release 12 hr 150 mg PO BID Qty: 180 3RF levothyroxine [Synthroid] 50 mcg tablet 50 mcg PO DAILY Qty: 90 3RF Rx Instructions: Take first thing in the morning on an empty stomach with an 8 oz glass of water. Do not eat or take other medications for 30 minutes. amiodarone 200 mg tablet 400 mg PO QAM Qty: 180 3RF galantamine 8 mg capsule,ext rel. pellets 24 hr 8 mg PO QAM Qty: 30 2RF Rx Instructions: administer with breakfast folic acid 800 mcg tablet 800 mcg PO QAM Qty: 90 3RF Rx Instructions: Unable to verify OTC meds at this date/time. Jardiance 10 mg tablet 10 mg PO DAILY Qty: 90 3RF bumetanide 1 mg tablet 1 mg PO BID Qty: 60 3RF cyanocobalamin (vitamin B-12) 500 mcg tablet 500 mcg PO QAM Qty: 30 2RF omeprazole 20 mg capsule,delayed release(DR/EC) See Rx Instructions .ROUTE .COMPLEX Qty: 90 3RF Dose Instruction: TAKE 1 CAPSULE BY MOUTH ONCE DAILY IN THE MORNING Rx Instructions: TAKE 1 CAPSULE BY MOUTH ONCE DAILY IN THE MORNING metoprolol succinate 50 mg tablet extended release 24 hr 50 mg PO QAM Held Eliquis 2.5 mg tablet 2.5 mg PO AMHS Qty: 60 2RF Hold Instructions: Resume on 12/13/23. Discontinued lisinopril 20 mg tablet 10 mg PO DAILY Qty: 180 1RF Hold Instructions: Resume on 11/05/23. Hold until your follow-up appointment with cardiology Discharge Orders: Discharge Order (Routine); Ordered 12/10/23 Ordered By: Breanne Jauregui/Other Patient Handouts: Heart Failure Make Changes Diet Admission Data Admit Date/Time: 12/06/23 15:44 Attending Provider: Taiwo Hernandez Admit Provider: Benito Altamirano Primary Care Provider: Juan Manuel Early III Other Providers: Benito Altamirano; Mika Ram; [facility] Other Interventions: Discharge Summary Assessment (RN) Last Done: 12/10/23 13:03 Hospital Stay Data Consultations 12/06/23 15:14 ED Decision to Admit Stat 12/07/23 08:06 Consult Cardiology Routine Diagnostic Imagining Performed Cervical Spine CT 12/06/23 12:[address] DOSE: HISTORY: Trauma TECHNIQUE: Multiaxial CT images of the cervical spine were performed and reformatted in the sagittal and coronal plane without the use of contrast. A dose lowering technique was utilized adhering to the principles of ALARA. COMPARISON: Cervical spine CT 09/02/2023. FINDINGS: No fractures. No subluxation. Prevertebral soft tissues and the C1-C2 interval are intact. No pneumothorax. IMPRESSION: No fractures within the cervical spine. ACT 112: Negative or not required by law. Electronically signed by: Mendoza Uriostegui M.D. 12/06/2023 1:58 PM Chest X-Ray 12/06/23 12:30 XR chest 1V portable HISTORY: fall COMPARISON: Chest 10/22/2023. FINDINGS: There are poststernotomy changes and left-sided pacemaker/defibrillator. The heart remains enlarged. 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 A few bibasilar linear densities consistent with subsegmental atelectasis. No evidence for pulmonary edema. There are old left-sided rib fractures. Deformity within the left posterior third rib may represent an acute fracture. Questionable tiny left apical pneumothorax. IMPRESSION: 1. Questionable tiny left apical pneumothorax. This will be better appreciated on the same day chest CT. 2. Deformity within the left posterior third rib which may represent an acute fracture. ACT 112: Negative or not required by law. Electronically signed by: Mendoza Uriostegui M.D. 12/06/2023 1:[address] 12/06/23 12:[address] DOSE: HISTORY: Trauma TECHNIQUE: Multiaxial CT images of the head were performed without the use of intravenous contrast. Automated exposure control was utilized for this study. A dose lowering technique was utilized adhering to the principles of ALARA. Comparison: Head CT 10/22/2023. Findings: The paranasal sinuses and mastoid air cells are clear. The calvarium and skull base are intact. There is no mass, hematoma, midline shift, acute infarct. White matter hypodensity is nonspecific but suggestive of microvascular ischemic change. The ventricles and sulci demonstrate mild age-related involutional changes. Impression: No acute intracranial abnormality. ACT 112: Negative or not required by law. Electronically signed by: Mendoza Uriostegui M.D. 12/06/2023 1:55 PM Abdomen/Pelvis CT 12/06/23 12:[address] WITHOUT CONTRAST CT DOSE: 3527.51 mGy.cm HISTORY: trauma TECHNIQUE: Multiaxial CT images of the abdomen and pelvis were performed without contrast. A dose lowering technique was utilized adhering to the principles of ALARA. COMPARISON STUDY: Abdomen and pelvis CT 09/09/2022. FINDINGS: The lung bases will be reported on the same day chest CT. No pneumoperitoneum. No pneumatosis. No acute fractures. Severe body wall edema is noted. There is a right lateral hip subcutaneous hematoma measuring 8.8 cm. Trace perihepatic ascites is noted. Prior cholecystectomy. No hepatic or splenic masses. The unenhanced pancreas is unremarkable. No renal stones or hydronephrosis. Moderate mesenteric and retroperitoneal edema is noted. No retroperitoneal hematoma or lymphadenopathy. Calcified plaque within the normal caliber abdominal aorta. 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 A right lateral bladder diverticulum is noted. No definite bowel wall thickening or obstruction. Colonic diverticulosis. No evidence for acute diverticulitis. IMPRESSION: 1. An 8.8 cm right lateral hip subcutaneous hematoma 2. No acute fractures identified. 3. Severe body wall edema. 4. Additional findings as described above. ACT 112: Negative or not required by law. Electronically signed by: Mendoza Uriostegui M.D. 12/06/2023 2:[address] 12/06/23 12:52 CT chest diagnostic wo con CT DOSE: HISTORY: trauma TECHNIQUE: Multiaxial CT images of the chest were performed without contrast. A dose lowering technique was utilized adhering to the principles of ALARA. COMPARISON: Chest CT 09/09/2022. FINDINGS: Poststernotomy changes and a left-sided pacemaker are noted. No acute fractures within the chest. Multiple fat-containing lesions again noted within the left shoulder which remain similar in size. These favor lipomas. Diffuse body wall edema is noted. Small right and trace left pleural effusions. No pericardial effusions. The heart is enlarged. The abdominal structures will be reported on the same day abdomen and pelvis CT. Calcified plaque within the thoracic aorta. The ascending thoracic aorta measures up to 4.1 cm in diameter. An aortic valve prosthesis is noted. Normal caliber esophagus. The thyroid gland enhances normally. No mediastinal or hilar lymphadenopathy. No mediastinal hematoma. The central airways are patent. No pneumothorax. Bibasilar linear groundglass densities favor dependent change/subsegmental atelectasis. There is mild pulmonary vascular congestion without overt edema. Small hypodense lobular density within the left lower lobe medially abutting the descending thoracic aorta measuring up to 9 mm in thickness. This may represent trace loculated pleural effusion. IMPRESSION: 1. No acute traumatic process within the chest. 2. Cardiomegaly and bilateral pleural effusions. 3. Stable fat-containing lesion within the left shoulder. 4. Additional findings as described above. ACT 112: Negative or not required by law. Electronically signed by: Mendoza Uriostegui M.D. 12/06/2023 2:10 PM Pending Results Patient Have Any Pending Studies at Discharge: No Discharge Instructions Given to Patient (Per Discharging Provider) FOR CENTRE CARE: Patient presented after an unwitnessed fall outside of his home. He was noted to have a large right thigh hematoma but is otherwise without acute trauma. Hold Eliquis until 12/13/2023 given hematoma. Continue Bumex 1 mg twice daily; creatinine slightly up trended with this, however leg swelling is significantly improved. Will except current level of azotemia. Continue all other home medications as prescribed. Patient has a long history of difficulty living at home by himself as he is an extremely high fall risk and falls frequently. Total Time Total Time Spent Total Time Spent (In Minutes): Greater than 30 minutes spent completing this discharge process including direct patient care, medication reconciliation, documentation, review of labs and images, and coordination of care. Coding Level of Care Code 57043 INP/OBS DISCH >30 MIN Diagnoses Fall W19.XXXA Hematoma of right thigh S70.11XA Unable to care for self Z78.9 UTI (urinary tract infection) N39.0 Pleural effusion J90 HTN, goal below 140/80 I10 Stage 4 chronic kidney disease N18.4 Heart failure with mildly reduced ejection fraction I50.22
== END 2023-12-10 13:04 | DRG 91 ==
LOC: ED 12:16 → 2S 15:44 → SUATTDRO 15:44 → 2S 19:43
DX: Z79.01 Long term (current) use of anticoagulants; N39.0 Urinary tract infection, site not specified; Z92.3 Personal history of irradiation; I48.0 Paroxysmal atrial fibrillation; L97.919 Non-pressure chronic ulcer of unspecified part of right lower leg with unspecified severity; Z95.0 Presence of cardiac pacemaker; I89.0 Lymphedema, not elsewhere classified; W07.XXXA Fall from chair, initial encounter; I87.2 Venous insufficiency (chronic) (peripheral); B96.1 Klebsiella pneumoniae [K. pneumoniae] as the cause of diseases classified elsewhere; I44.7 Left bundle-branch block, unspecified; B96.5 Pseudomonas (aeruginosa) (mallei) (pseudomallei) as the cause of diseases classified elsewhere; E03.9 Hypothyroidism, unspecified; R79.89 Other specified abnormal findings of blood chemistry; I50.43 Acute on chronic combined systolic (congestive) and diastolic (congestive) heart failure; R29.6 Repeated falls; S70.11XA Contusion of right thigh, initial encounter; T79.6XXA Traumatic ischemia of muscle, initial encounter; J90 Pleural effusion, not elsewhere classified; N18.4 Chronic kidney disease, stage 4 (severe); L97.929 Non-pressure chronic ulcer of unspecified part of left lower leg with unspecified severity; L89.313 Pressure ulcer of right buttock, stage 3; Z60.2 Problems related to living alone; I13.0 Hypertensive heart and chronic kidney disease with heart failure and stage 1 through stage 4 chronic kidney disease, or unspecified chronic kidney disease; Z60.8 Other problems related to social environment; Z95.2 Presence of prosthetic heart valve; I27.20 Pulmonary hypertension, unspecified; Z85.46 Personal history of malignant neoplasm of prostate; Y92.019 Unspecified place in single-family (private) house as the place of occurrence of the external cause

== ENCOUNTER 2023-12-26 19:09 | Inpatient (IN) ==
--- NOTE | 2023-12-26 19:13 | Emergency Department Note ---
Impression & Plan Confusion, Recurrent falls, CKD (chronic kidney disease), Transaminitis ED Provider Note NAME: TROY TOSCANO AGE: 83 SEX: M : 1940 ARRIVES VIA: Ambulance INFORMANT: Patient ED PROVIDER(S): Wolfgang Montiel MD CHIEF COMPLAINT: Confusion, recurrent falls, referred. 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 Staff at the facility also expressed concern that his mental status was declining. The patient presents in the setting of being seen by this provider on 12/10 for unresponsive episode that occurred when he was treated with Haldol for delirium. On that visit the patient had been given a chest compression due to staff being concerned he had an arrest but interrogation of his AICD showed no cardiac arrest. He had a nondisplaced rib fracture and was noted to have pneumonia and treated with antibiotics and discharged back to his facility. The patient is alert and oriented to self and place. He similarly exhibits poor insight into his medical conditions as he did on his admission at the end of November and on his respondent visit afterwards. Head is atraumatic. Patient reports he has had ongoing pain in the right shoulder for weeks but is more uncomfortable after his fall. He has chronic lymphedema of his left lower extremity and bilateral lower extremities. On evaluation patient is no distress, afebrile blood pressure 90s/70s and vital signs otherwise stable. He appears euvolemic with chronic bilateral lower extremity and left upper extremity edema. EKG is paced. Chest x-ray negative for acute cardiopulmonary process. Right shoulder x-ray negative for acute fracture or dislocation per my preliminary independent interpretation. WBC within normal limits. Platelets within limits. H/H similar to prior. Chemistry without metabolic acidosis. Creatinine is 2.7, uptrending from prior values though has had similar values previously. LFTs are elevated from prior and are nonspecific with total bilirubin 1.3, direct bilirubin 0.7. AST and ALT 106 and 94, respectively and alk phos 256. Patient is status postcholecystectomy remotely. Procalcitonin is not elevated. TSH within normal limits. CPK 331, mildly elevated. UA pending. CT of the head and C-spine negative for acute abnormalities. Plain film of the right shoulder negative for acute fracture or dislocation per my preliminary independent interpretation. Given patient's elevated LFTs CT of the pelvis was ordered to further evaluate. However given the patient's facility with concern for mental status decline and recurrent falls with repeat referral to emergency department for assessment patient referred to hospitalist service for admission for further management. Case was discussed with ARLINE Vaughan PAC, with ARLINE Squires hospitalist who will evaluate the patient for admission. CT of the abd/pelvis subsequently completed and demonstrates stable right posterior lateral hip hematoma. Note is made of interval development of small volume perihepatic and perisplenic free fluid/ascites. No free air or abscess is seen. Moderate stool burden is noted. Anasarca is described. No acute intra-abdominal or pelvic process otherwise. Further management per admitting team. Triage Nursing notes reviewed and agree them. Prior/external medical records reviewed Vital Signs: reviewed Differential diagnosis: Infection, dehydration, metabolic abnormality, hypo/hyperglycemia, electrolyte disturbance, anemia, hypoxia, cardiac sources, intracerebral event, toxicologic, neurologic, as well as other pathologies. ER treatment provided: See below. Diagnostics interpreted by me: ECG: AV dual paced rhythm, 76 bpm, no ectopy, no overt acute ischemia. Cardiac Monitoring: An order for continuous cardiac monitoring was placed and demonstrated AV dual paced rhythm, 76 bpm, no ectopy. 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 Staff at the facility also expressed concern that his mental status was declining. The patient presents in the setting of being seen by this provider on 12/10 for unresponsive episode that occurred when he was treated with Haldol for delirium. On that visit the patient had been given a chest compression due to staff being concerned he had an arrest but interrogation of his AICD showed no cardiac arrest. He had a nondisplaced rib fracture and was noted to have pneumonia and treated with antibiotics and discharged back to his facility. The patient is alert and oriented to self and place. He similarly exhibits poor insight into his medical conditions as he did on his admission at the end of November and on his respondent visit afterwards. Head is atraumatic. Patient reports he has had ongoing pain in the right shoulder for weeks but is more uncomfortable after his fall. He has chronic lymphedema of his left lower extremity and bilateral lower extremities. ROS: See above HPI for pertinent positives & negatives. A total of 10 systems reviewed and were otherwise negative. VITALS:See Below PHYSICAL EXAMINATION: GENERAL: Awake, alert, chronically ill-appearing, in no distress HENT: Normocephalic, atraumatic. Oropharynx with dry mucous membranes and otherwise unremarkable. EYES: Normal conjunctiva. Sclera non-icteric. EOMI. No nystamgus. PEARRL. NECK: Supple. No nuchal rigidity. FROM. No JVD. RESPIRATORY: Clear to auscultation. CARDIAC: Regular rate, normal rhythm. Extremities warm and well perfused. Pulses equal. ABDOMEN: Soft, non-distended. No tenderness to palpation. No rebound or guarding. No masses. MUSCULOSKELETAL: Chest examination reveals no tenderness. The back is symmetrical on inspection without obvious abnormality. There is no CVA tenderness to palpation. LUE With chronic lymphedema. Tenderness of the right AC with suspected chronic deformity/rotator cuff injury. LOWER EXTREMITIES: Calves are equal size bilaterally and non-tender. 2+ BLE pitting edema. No discoloration. NEURO: Alert and oriented to self, place, situation though with mild confusion/poor medical insight similar to prior assessments. No focal sensory or motor deficits noted. 4/5 strength x 4 ext. SKIN: No rash or jaundice noted. Wolfgang Montiel MD Past Med/Surg History Problem List (Updated 12/27/23 @ 03:04 by Wolfgang Montiel MD) Transaminitis (Acute) Paroxysmal atrial fibrillation Hypertension Rhabdomyolysis CATRACHITO (acute kidney injury) Transaminitis CKD (chronic kidney disease) (Acute) Recurrent falls (Acute) Confusion (Acute) Pleural effusion Heart failure with mildly reduced ejection fraction Hematoma of right thigh Generalized weakness (Acute) Unable to care for self (Acute) Elevated serum creatinine (Acute) Fall (Acute) Recurrent falls Hematuria B12 deficiency S/P AVR (aortic valve replacement) HTN, goal below 140/80 Anemia (Acute) Falling (Acute) Weakness (Acute) Venous ulcers of both lower extremities (Acute) Stage 4 chronic kidney disease Frequent falls (Acute) Stage III pressure ulcer of buttock (Acute) Venous ulcer of left leg Stage II pressure ulcer of right buttock (Acute) Lymphedema Implantable cardioverter-defibrillator (ICD) discharge Cognitive disorder Abnormal ankle brachial index Chronic acquired lymphedema (Chronic) Bilateral lower extremity edema (Acute) Venous stasis ulcers of both lower extremities (Acute) Mass of joint of left shoulder H/O prostate cancer Presence of combination internal cardiac defibrillator (ICD) and pacemaker Right ischial pressure sore, stage 1 Coronary artery disease (Chronic) Depression (Chronic) Disc degeneration, lumbar (Chronic) Pure hypercholesterolemia (Chronic) Prediabetes (Chronic) Medical History (Updated 12/27/23 @ 03:04 by Wolfgang Montiel MD) Elevated troponin Acute on chronic combined systolic (congestive) and diastolic (congestive) heart failure Hallucinations Cellulitis Acute on chronic HFrEF (heart failure with reduced ejection fraction) CKD (chronic kidney disease) Atrial fibrillation Acid reflux disease Hypothyroidism Ventricular tachyarrhythmia Subclavian vein obstruction Dyslipidemia, goal LDL below 70 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 COVID-19 Ventricular tachycardia Thrombocytopenia New onset atrial fibrillation Encounter for pre-operative examination Left bundle branch block Acute pancreatitis Prostate cancer PVC (premature ventricular contraction) Hyperthyroidism Hyperhomocystinemia History of snuff use Former smoker Difficulty reading due to visual problem Cervical radiculopathy 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, 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, clinical stage TIc Status post biopsies, biopsy stage TIIa [place] grade 3+3 Status post seed implant with cesium 131 as boost 12/08/2006 Status post completion of IMRT/IGRT 02/26/2007" Surgical History (Updated 12/17/23 @ 00:08 by Ger Prajapati) History of laparoscopic cholecystectomy (11/08/21) lap ish/ercp Nov 01 Chambers Status post aortic valve replacement with bioprosthetic valve H/O aortic valve repair H/O hernia repair Family History Mother Heart disease Brother Cancer Lung cancer Unknown Prostate cancer Father Prostate cancer Denies family history of Colon cancer Ovarian cancer Myocardial infarction Breast cancer Social History Smoking Status: Never smoker Tobacco Type: Cigarettes Age Started Using Tobacco: 8; Age Quit Using Tobacco: 75; packs per day: 2.5; Second Hand Exposure: No; Do You Dip or Chew Tobacco: No; Hx Alcohol Use: No Hx Substance Use: No Preferred Language: [place] Communication Ability: Effective Communication Ability Comment: Pt. OHKAY OWINGEH bilaterally Visual Impairment: No Limitations Hearing Ability: Use of Hearing Aid Eyewear Manufacturing Supervisor Required: No Beliefs That Will Affect Care: None marital status: / Current Living Situation: Rehab Current Living Situation Comment: Lives at home, alone current occupational status: retired How many Children do You have: 2 Feels Safe at Home: Yes Safety Concerns: Feels Safe At This Time Childhood Exposure to Second-Hand Smoke: Yes Diet: regular Diet Comment: regular caffeine: Yes during the past year weight has: remained stable Dental Care, Regularly: No Physical Activity Frequency: Does not Exercise Seatbelt Use: never Sunscreen Use: No Do you think of yourself as: straight/heterosexual Assistive Devices: None Allergies Allergies Allergy/AdvReac Type Severity Reaction Status Date / Time No Known Allergies Allergy Verified 12/06/23 16:03 Home Meds Home Medications Medication Instructions Recorded Confirmed metoprolol succinate 50 mg 50 mg PO QAM 12/06/23 12/26/23 tablet,extended release 24 hr omeprazole 20 mg capsule,delayed 20 mg PO QAM 12/11/23 12/26/23 release Previous Rx's Medication Instructions Recorded Left Upper Extremity Compression #1 ea 07/03/23 Sleeve atorvastatin 80 mg tablet 80 mg PO HS #90 tabs 09/15/23 bupropion HCl 150 mg tablet,12 hr 150 mg PO BID #180 ea 09/15/23 sustained-release levothyroxine 50 mcg tablet 50 mcg PO DAILY #90 tabs 09/15/23 (Synthroid) amiodarone 200 mg tablet 400 mg (2 x 200 mg) PO QAM #180 09/16/23 tabs folic acid 800 mcg tablet 800 mcg PO QAM #90 tabs 10/14/23 galantamine 8 mg 24 hr 8 mg PO QAM #30 caps 10/14/23 capsule,extended release apixaban 2.5 mg tablet (Eliquis) 2.5 mg PO AMHS #60 tabs 11/06/23 bumetanide 1 mg tablet 1 mg PO BID #60 tabs 11/06/23 cyanocobalamin (vitamin B-12) 500 500 mcg PO QAM #30 tabs 11/06/23 mcg tablet empagliflozin 10 mg tablet 10 mg PO DAILY #90 tabs 11/06/23 (Jardiance) Results & Data (ED) Vital Signs Vital Signs - 24 hr 12/26/23 19:01 12/26/23 19:01 12/26/23 19:23 Temperature 36.8 C Temperature Source Oral Pulse Rate 73 Pulse Rate from SpO2 Sensor Respiratory Rate 16 Respiratory Effort / Characteristics Non-Labored Respiratory Depth Normal Blood Pressure 93/75 L Blood Pressure Mean 81 Pulse Oximetry 98 98 Oxygen Delivery Method Room Air Room Air Room Air Sepsis Recent Fever Within 48 Hours No Sepsis New/Unexplained Change in Mental Status No Sepsis Action Taken by Nursing No Action Required 12/26/23 19:31 12/26/23 19:32 12/26/23 19:32 Temperature Temperature Source Pulse Rate 75 Pulse Rate from SpO2 Sensor Respiratory Rate Respiratory Effort / Characteristics Respiratory Depth Blood Pressure 123/100 123/100 Blood Pressure Mean 113 113 Pulse Oximetry Oxygen Delivery Method Sepsis Recent Fever Within 48 Hours Sepsis New/Unexplained Change in Mental Status Sepsis Action Taken by Nursing 12/26/23 19:33 12/26/23 19:57 12/26/23 20:00 Temperature Temperature Source Pulse Rate 75 75 Pulse Rate from SpO2 Sensor 75 75 Respiratory Rate 13 16 Respiratory Effort / Characteristics Respiratory Depth Blood Pressure 107/72 Blood Pressure Mean 93 Pulse Oximetry 98 95 Oxygen Delivery Method Sepsis Recent Fever Within 48 Hours Sepsis New/Unexplained Change in Mental Status Sepsis Action Taken by Nursing 12/26/23 20:00 12/26/23 20:01 12/26/23 20:30 Temperature Temperature Source Pulse Rate Pulse Rate from SpO2 Sensor Respiratory Rate Respiratory Effort / Characteristics Respiratory Depth Blood Pressure 117/87 105/84 Blood Pressure Mean 98 89 Pulse Oximetry Oxygen Delivery Method Room Air Sepsis Recent Fever Within 48 Hours Sepsis New/Unexplained Change in Mental Status Sepsis Action Taken by Nursing 12/26/23 20:30 12/26/23 20:30 12/26/23 20:42 Temperature Temperature Source Pulse Rate 75 75 Pulse Rate from SpO2 Sensor 75 75 Respiratory Rate 12 15 Respiratory Effort / Characteristics Respiratory Depth Blood Pressure 105/84 Blood Pressure Mean 89 Pulse Oximetry 98 98 Oxygen Delivery Method Sepsis Recent Fever Within 48 Hours Sepsis New/Unexplained Change in Mental Status Sepsis Action Taken by Nursing 12/26/23 20:51 12/26/23 21:00 Temperature Temperature Source Pulse Rate 75 75 Pulse Rate from SpO2 Sensor 74 75 Respiratory Rate 16 16 Respiratory Effort / Characteristics Respiratory Depth Blood Pressure Blood Pressure Mean Pulse Oximetry 96 97 Oxygen Delivery Method Sepsis Recent Fever Within 48 Hours Sepsis New/Unexplained Change in Mental Status Sepsis Action Taken by Nursing Laboratory Data 12/26/23 19:29 12/26/23 19:29 Lab Results 12/26/23 Range/Units 19:29 WBC 9.50 (4.8-10.8) K/ul RBC 3.44 L (4.70-6.10) M/uL Hgb 9.0 L (14.0-18.0) g/dl Hct 28.7 L (42.0-52.0) % MCV 83.4 (80.0-100.0) fL MCH 26.2 (25.0-34.0) pg MCHC 31.4 L (32.0-36.0) g/dL RDW Std Deviation 53.8 H (36.4-46.3) fL RDW Coeff of Yony 17.6 H (11.5-14.5) % Plt Count 175 (130-400) K/uL MPV 12.1 (9.4-12.4) fL Immature Gran % (Auto) 0.4 % Neut % (Auto) 81.6 % Lymph % (Auto) 8.5 % Victoria % (Auto) 8.7 % Eos % (Auto) 0.6 % Baso % (Auto) 0.2 % Neut # (Auto) 7.74 H (1.40-6.50) K/uL Lymph # (Auto) 0.81 L (1.20-3.40) K/uL Victoria # (Auto) 0.83 H (0.11-0.59) K/uL Eos # (Auto) 0.06 (0.00-0.50) K/uL Baso # (Auto) 0.02 (0.00-0.20) K/uL Immature Gran # (Auto) 0.04 (0.01-0.20) K/uL PT 13.2 H (9.0-12.0) Seconds INR 1.2 H (0.9-1.1) Sodium 140 (136-145) mmol/L Potassium 3.8 (3.5-5.1) mmol/L Chloride 102 (98-107) mmol/L Carbon Dioxide 27 (21-32) mmol/L Anion Gap 11 (3-11) BUN 73 H (6-23) mg/dl Creatinine 2.73 H (0.6-1.4) mg/dl Est Cr Clr Drug Dosing 23.9 ml/min Est GFR ( Amer) 23.5 ml/min Est GFR (Non-Af Amer) 20.3 ml/min BUN/Creatinine Ratio 26.7 H (10-20) Glucose 107 H (70-99(Fasting)) mg/dl Calcium 8.6 (8.6-10.3) mg/dl Magnesium 2.5 H (1.7-2.4) mg/dl Total Bilirubin 1.3 H (0.2-1.0) mg/dl Direct Bilirubin 0.7 H (0-0.2) mg/dl AST 106 H (13-39) U/L ALT 94 H (7-52) U/L Alkaline Phosphatase 256 H (34-104) U/L Total Creatine Kinase 331 H (30-223) U/L Total Protein 7.2 (6.0-8.3) gm/dl Albumin 3.5 (3.4-5.0) gm/dl Globulin 3.7 (2.5-4.0) gm/dl Albumin/Globulin Ratio 0.9 (0.9-2) Procalcitonin 0.15 (0-0.5) ng/ml TSH 0.897 (0.300-4.500) uIu/ml Administered Medications Lactated Ringer's (Lr) 1,000 mls @ 80 mls/hr IV .[id number] JUANJOSE Stop: 12/27/23 10:14 Last Admin: 12/26/23 22:26 Dose: 80 mls/hr Documented By: SAB Discontinued Medications Acetaminophen (Ofirmev) 1,000 mg in 100 mls @ 400 mls/hr IV NOW STA Stop: 12/26/23 19:38 Last Infusion: 12/26/23 20:00 Dose: Infused Documented By: Admin: 12/26/23 19:32 Dose: 400 mls/hr Documented By: [facility] Imaging Data Radiologist's Impression: Chest X-Ray 12/26/23 19:23 XR chest 1V portable CLINICAL HISTORY: fall TECHNIQUE: Single frontal radiograph of the chest was obtained. Comparison: Comparison is made to chest radiograph 12/11/2023 FINDINGS: Lines and tubes are stable. Cardiomegaly is noted. The lungs are clear. No evidence of pleural effusion or pneumothorax. IMPRESSION: No acute chest disease. ACT 112: Negative or not required by law. Electronically signed by: Daniel Hernandez M.D. 12/26/2023 7:[address] 12/26/23 19:24 CT cervical spine wo con CLINICAL HISTORY: pain fall TECHNIQUE: Multidetector row helical CT of the cervical spine was performed without administration of intravenous contrast. Coronal and sagittal reformations were obtained. Automated dose lowering techniques and/or adjustment according to patient size were utilized for this exam. Comparison: Comparison is made to CT cervical spine 12/06/2023 FINDINGS: No acute fractures or subluxations are identified. Degenerative changes are seen in the visualized spine. The alignment is normal. Soft tissues are unremarkable. IMPRESSION: Degenerative changes without evidence of acute bony injury. ACT 112: Negative or not required by law. Electronically signed by: Daniel Hernandez M.D. 12/26/2023 8:[address] 12/26/23 19:24 CT head/brain wo con CLINICAL HISTORY: pain fall Technique: Contiguous axial CT images of the head were acquired from the base of the skull to the vertex without intravenous contrast administration. Images were viewed in brain, subdural and bone windows. Automated dose lowering techniques and/or adjustment according to patient size were utilized for this exam. Comparison: None available at the time of this dictation. Findings: Areas of decreased attenuation are present in the periventricular and subcortical white matter bilaterally consistent with small vessel ischemic disease. Generalized cerebral atrophy with commensurate enlargement of the ventricles, sulci, and cisterns is also present. There is no acute intracranial hemorrhage or evidence of acute territorial infarction. No shift of the midline structures, mass effect, or extra-axial abnormalities are shown. Atherosclerotic calcifications are present in the intracranial segments of the internal carotid arteries. Imaged portions of the paranasal sinuses and mastoid air cells are clear. The orbits appear normal. There are no acute fractures of the calvaria or scalp swelling. Impression: No acute intracranial hemorrhage, no evidence of acute territorial infarction or other acute intracranial disease process. ACT 112: Negative or not required by law. Electronically signed by: Daniel Hernandez M.D. 12/26/2023 8:03 PM Abdomen/Pelvis CT 12/26/23 20:27 Exam(s): CT ABDOMEN + PELVIS Without Contrast EXAM: CT Abdomen and Pelvis Without Intravenous Contrast CLINICAL HISTORY: Reason for exam: confusion, elevated lfts. TECHNIQUE: Axial computed tomography images of the abdomen and pelvis without intravenous contrast. Automated exposure control was utilized for the study. A dose lowering technique was utilized adhering to the principles of ALARA. COMPARISON: CT abdomen and pelvis: 12/11/2023 FINDINGS: Lung bases: Unremarkable. No mass. No consolidation. Pleural space: There is a small dependent right basilar pleural effusion. ABDOMEN: Liver: Unremarkable. Gallbladder and bile ducts: The gallbladder has been removed. No ductal dilation. Pancreas: Unremarkable. No ductal dilation. Spleen: Unremarkable. No splenomegaly. Adrenals: Unremarkable. No mass. Kidneys and ureters: Unremarkable. No obstructing stones. No hydronephrosis. Stomach and bowel: There is a moderate stool burden. No bowel thickening or obstruction identified. No free air or abscess identified. The appendix is normal. PELVIS: Appendix: See above. Bladder: There is a 4.4 cm urinary bladder diverticula along the right posterior lateral bladder wall. No stones. Reproductive: Prostate brachytherapy implants are noted. ABDOMEN and PELVIS: Intraperitoneal space: There is a small amount of perihepatic and perisplenic free fluid/ascites. Bones/joints: No acute fracture. No dislocation. Soft tissues: There is diffuse body wall edema suggestive of anasarca. There is a stable 6.0 x 9.3 cm right lateral hip soft tissue hematoma noted within the subcutaneous fat. Vasculature: There are moderate scattered aortic and branch vessel atherosclerotic calcifications. There are advanced Aortic and coronary artery atherosclerotic calcifications. There is mild to moderate cardiomegaly. No abdominal aortic aneurysm. Lymph nodes: Unremarkable. No enlarged lymph nodes. IMPRESSION: 1. Stable right posterior lateral hip soft tissue hematoma. 2. Persistent small dependent right basilar pleural effusion. 3. There has been interval development of a small volume of perihepatic and perisplenic free fluid/ascites. No free air or abscess identified. 4. Moderate stool burden. No bowel obstruction identified. 5. Diffuse body wall edema suggestive of anasarca. 6. No definite acute intra-abdominal or pelvic inflammatory process identified. Electronically signed by: Fredy Lagos MD 12/27/23 00:18 AM Discharge Plan Visit Data Chief Complaint: Trauma Stated Complaint: Frequent Falls, Shoulder Injury, Leg Pain ED Provider: Wolfgang Montiel Discharge Problem: Confusion, Recurrent falls, CKD (chronic kidney disease), Transaminitis Patient Disposition: Admitted As Inpatient Discharge Instructions Interventions: ED Discharge Assessment Last Done: 12/26/23 22:03 Discharge Problem: CKD (chronic kidney disease) Qualifiers: Chronic kidney disease stage: unspecified stage Qualified Code(s): N18.9 - Chronic kidney disease, unspecified
[2023-12-26] MEDS: ACETAMINOPHEN 1,000 MG/100 ML VIAL IV STA (19:32)
--- NOTE | 2023-12-26 19:43 | XRay Report ---
XR chest 1V portable CLINICAL HISTORY: fall TECHNIQUE: Single frontal radiograph of the chest was obtained. Comparison: Comparison is made to chest radiograph 12/11/2023 FINDINGS: Lines and tubes are stable. Cardiomegaly is noted. The lungs are clear. No evidence of pleural effusi on or pneumothorax. IMPRESSION: No acute chest disease. ACT 112: Negative or not required by law. Electronically signed by: Daniel Hernandez M.D. 12/26/2023 7:40 PM
[2023-12-26 19:45] LABS: Basophils # (auto) 0.02 K/uL (0.00-0.20); Basophils % (auto) 0.2 %; Eosinophils # (auto) 0.06 K/uL (0.00-0.50); Eosinophils % (auto) 0.6 %; Hematocrit (blood only) 28.7 % (42.0-52.0); Immature Granulocytes # (auto) 0.04 K/uL (0.01-0.20); Immature Granulocytes % (auto) 0.4 %; Lymphocytes # (auto) 0.81 K/uL (1.20-3.40); Lymphocytes % (auto) 8.5 %; Mean Corpuscular Hemoglobin 26.2 pg (25.0-34.0); Mean Corpuscular Hgb Conc 31.4 g/dL (32.0-36.0); Mean Corpuscular Volume 83.4 fL (80.0-100.0); Mean Platelet Volume 12.1 fL (9.4-12.4); Monocytes # (auto) 0.83 K/uL (0.11-0.59); Monocytes % (auto) 8.7 %; Neutrophils # (auto) 7.74 K/uL (1.40-6.50); Neutrophils % (auto) 81.6 %; Platelet Count 175 K/uL (130-400); RDW Coefficient of Variation 17.6 % (11.5-14.5); RDW Standard Deviation 53.8 fL (36.4-46.3); Red Blood Count 3.44 M/uL (4.70-6.10)
[2023-12-26 20:00] LABS: Albumin Globulin Ratio 0.9 (0.9-2); Albumin Level 3.5 gm/dl (3.4-5.0); BUN Creatinine Ratio 26.7 (10-20); Bilirubin,Total 1.3 mg/dl (0.2-1.0); Calcium 8.6 mg/dl (8.6-10.3); Creatinine Clr Calc Pharmacy 23.9 ml/min; Est GFR (African American) 23.5 ml/min; Est GFR (Non-African American) 20.3 ml/min; Globulin 3.7 gm/dl (2.5-4.0); Magnesium 2.5 mg/dl (1.7-2.4); Potassium 3.8 mmol/L (3.5-5.1); Total Protein 7.2 gm/dl (6.0-8.3)
--- NOTE | 2023-12-26 20:05 | CT Scan Report ---
CT head/brain wo con CLINICAL HISTORY: pain fall Technique: Contiguous axial CT images of the head were acquired from the base of the skull to the jill amara without intravenous contrast administration. Images were viewed in brain, subdural and bone [facility]. Automated dose lowering techniques and/or adjustment according to patient size were utilized for this exam. Comparison: None available at the time of this dictation. Findings: Areas of decreased attenuation are present in the periventricular and subcortical white matter bilate rally consistent with small vessel ischemic disease. Generalized cerebral atrophy with commensurate e nlargement of the ventricles, sulci, and cisterns is also present. There is no acute intracranial hem orrhage or evidence of acute territorial infarction. No shift of the midline structures, mass effect, or extra-axial abnormalities are shown. Atherosclerotic calcifications are present in the intracran ial segments of the internal carotid arteries. Imaged portions of the paranasal sinuses and mastoid air cells are clear. The orbits appear normal. There are no acute fractures of the calvaria or scalp swelling. Impression: No acute intracranial hemorrhage, no evidence of acute territorial infarction or other acute intracra nial disease process. ACT 112: Negative or not required by law. Electronically signed by: Daniel Hernandez M.D. 12/26/2023 8:03 PM
--- NOTE | 2023-12-26 20:06 | CT Scan Report ---
CT cervical spine wo con CLINICAL HISTORY: pain fall TECHNIQUE: Multidetector row helical CT of the cervical spine was performed without administration of intravenous contrast. Coronal and sagittal reformations were obtained. Automated dose lowering techn iques and/or adjustment according to patient size were utilized for this exam. Comparison: Comparison is made to CT cervical spine 12/06/2023 FINDINGS: No acute fractures or subluxations are identified. Degenerative changes are seen in the visualized sp ine. The alignment is normal. Soft tissues are unremarkable. IMPRESSION: Degenerative changes without evidence of acute bony injury. ACT 112: Negative or not required by law. Electronically signed by: Daniel Hernandez M.D. 12/26/2023 8:04 PM
[2023-12-26 20:14] LABS: INR 1.2 (0.9-1.1); Prothrombin Time 13.2 Seconds (9.0-12.0)
[2023-12-26 20:15] LABS: Thyroid Stimulating Hormone 0.897 uIu/ml (0.300-4.500)
--- NOTE | 2023-12-26 20:41 | History & Physical Report ---
Date of Service December 26, 2023 Assessment & Plan (1) Recurrent falls: Plan: Patient presented after rolling out of bed on 12/25; landed on his right shoulder No LOC or head strike, however patient is on Eliquis (last took Eliquis the morning of 12/25) Head/cervical spine CT without acute findings CXR without acute abnormalities Right shoulder x-ray without acute fractures; ?but may exhibit an anterior dislocation No leukocytosis; afebrile; UA ordered, pending Fall precautions PT/OT evaluations appreciated Case management consulted for placement/rehab A.m. CBC, BMP, mag (2) Transaminitis: Plan: Elevated transaminases on arrival Clinically, patient denies RUQ abdominal pain CT A/P ordered, pending (3) Anemia: Plan: Chronic; Hgb 9.0 on arrival No signs of active bleeding on clinical exam Trend H&H and continue to monitor Will hold Eliquis for 24 hours in the setting of acute trauma (4) CATRACHITO (acute kidney injury): Plan: BUN 73, creatinine 2.73 (baseline 1.8), EGFR 20.3 Avoid nephrotoxic agents where possible IVF resuscitation with LR at 80mL/hr x 1 L Recheck a.m. BMP (5) Rhabdomyolysis: Plan: Mild; CK elevated at 331 on arrival Hold atorvastatin IVF (as above) Recheck AM CK level (6) Heart failure with mildly reduced ejection fraction: Plan: Last echocardiogram on 08/15/2023 revealed LVEF at 40-45% Daily weights Strict I&O monitoring Heart healthy, low-sodium diet (7) Paroxysmal atrial fibrillation: Plan: Currently in AV dual paced rhythm Continue metoprolol, amiodarone (8) Hypertension: (9) S/P AVR (aortic valve replacement): (10) Presence of combination internal cardiac defibrillator (ICD) and pacemaker: Plan Disposition: Admit to [facility] telemetry Full code Heart healthy, low-sodium, easy to chew diet (aspiration precautions) VTE PPx: Hold Eliquis for 24 hours in the setting of anemia and acute trauma; teds History of Present Illness Chief Complaint: Trauma/fall Primary Care Provider: NO PCP Kermit is a pleasant 83-year-old male with PMH of prediabetes, CAD, depression, prostate cancer, frequent falls, venous ulcers, B12 deficiency, and heart failure with mildly reduced ejection fraction. He presented from [facility] on 12/25 after sustaining a fall when he rolled out of bed onto his right shoulder. Patient is a poor historian at this time. Patient remembers falling, and does not believe he hit his head. He has no right shoulder pain at rest, but does have 5/10 pain that radiates down to his elbow with movement. When asked when he came into the hospital, he says he is not sure. He does have recurrent falls, and uses a walker/cane at baseline (walker outside, cane inside), however he is not sure how often he is falling (note on paperwork sent over from [facility], they do have an unwitnessed mechanical fall on 12/05 (. Patient denies smoking, tobacco use, recent alcohol use; former tobacco cigarette user, and he reports he used to chew tobacco. Per ED, the patient did have an episode of recent CPR, where was performed on him even though he still had a pulse. Patient is mildly hypotensive at 93/75 at time of admission; vitals otherwise stable. ED course: Acetaminophen 1000 mg IV ROS: Patient endorses lightheadedness with standing, feeling off balance, and right shoulder pain with movement. Patient denies fever, night-sweats, chest pain, SOB, abdominal pain, N/V/D, burning with urination, changes in urinary/bowel, or numbness/tingling in the arms. Recent [place] admission 12/05-12/10 for fall and UTI Per review of patient records, patient was recently placed on a course of doxycycline 100 mg BID and cefdinir 300 mg BID at the beginning of December for pneumonia. He also had a urine culture growing VRE; unclear if second urine culture was drawn or patient was started on nitrofurantoin. Allergies Allergy/AdvReac Type Severity Reaction Status Date / Time No Known Allergies Allergy Verified 12/06/23 16:03 Home Medications Medication Instructions Recorded Confirmed Type Left Upper Extremity Compression #1 ea 07/03/23 12/02/23 Rx Sleeve atorvastatin 80 mg tablet 80 mg PO HS #90 tabs 09/15/23 12/26/23 Rx bupropion HCl 150 mg tablet,12 hr 150 mg PO BID #180 ea 09/15/23 12/26/23 Rx sustained-release levothyroxine 50 mcg tablet 50 mcg PO DAILY #90 tabs 09/15/23 12/26/23 Rx (Synthroid) amiodarone 200 mg tablet 400 mg (2 x 200 mg) PO QAM #180 09/16/23 12/26/23 Rx tabs folic acid 800 mcg tablet 800 mcg PO QAM #90 tabs 10/14/23 12/26/23 Rx galantamine 8 mg 24 hr 8 mg PO QAM #30 caps 10/14/23 12/26/23 Rx capsule,extended release apixaban 2.5 mg tablet (Eliquis) 2.5 mg PO AMHS #60 tabs 11/06/23 12/26/23 Rx bumetanide 1 mg tablet 1 mg PO BID #60 tabs 11/06/23 12/26/23 Rx cyanocobalamin (vitamin B-12) 500 500 mcg PO QAM #30 tabs 11/06/23 12/26/23 Rx mcg tablet empagliflozin 10 mg tablet 10 mg PO DAILY #90 tabs 11/06/23 12/26/23 Rx (Jardiance) metoprolol succinate 50 mg 50 mg PO QAM 12/06/23 12/26/23 History tablet,extended release 24 hr omeprazole 20 mg capsule,delayed 20 mg PO QAM 12/11/23 12/26/23 History release Past Med/Surg History Problem List (Updated 12/27/23 @ 03:04 by Wolfgang Montiel MD) Transaminitis (Acute) Paroxysmal atrial fibrillation Hypertension Rhabdomyolysis CATRACHITO (acute kidney injury) Transaminitis CKD (chronic kidney disease) (Acute) Recurrent falls (Acute) Confusion (Acute) Pleural effusion Heart failure with mildly reduced ejection fraction Hematoma of right thigh Generalized weakness (Acute) Unable to care for self (Acute) Elevated serum creatinine (Acute) Fall (Acute) Recurrent falls Hematuria B12 deficiency S/P AVR (aortic valve replacement) HTN, goal below 140/80 Anemia (Acute) Falling (Acute) Weakness (Acute) Venous ulcers of both lower extremities (Acute) Stage 4 chronic kidney disease Frequent falls (Acute) Stage III pressure ulcer of buttock (Acute) Venous ulcer of left leg Stage II pressure ulcer of right buttock (Acute) Lymphedema Implantable cardioverter-defibrillator (ICD) discharge Cognitive disorder Abnormal ankle brachial index Chronic acquired lymphedema (Chronic) Bilateral lower extremity edema (Acute) Venous stasis ulcers of both lower extremities (Acute) Mass of joint of left shoulder H/O prostate cancer Presence of combination internal cardiac defibrillator (ICD) and pacemaker Right ischial pressure sore, stage 1 Coronary artery disease (Chronic) Depression (Chronic) Disc degeneration, lumbar (Chronic) Pure hypercholesterolemia (Chronic) Prediabetes (Chronic) Medical History (Updated 12/27/23 @ 03:04 by Wolfgang Montiel MD) Elevated troponin Acute on chronic combined systolic (congestive) and diastolic (congestive) heart failure Hallucinations Cellulitis Acute on chronic HFrEF (heart failure with reduced ejection fraction) CKD (chronic kidney disease) Atrial fibrillation Acid reflux disease Hypothyroidism Ventricular tachyarrhythmia Subclavian vein obstruction Dyslipidemia, goal LDL below 70 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 COVID-19 Ventricular tachycardia Thrombocytopenia New onset atrial fibrillation Encounter for pre-operative examination Left bundle branch block Acute pancreatitis Prostate cancer PVC (premature ventricular contraction) Hyperthyroidism Hyperhomocystinemia History of snuff use Former smoker Difficulty reading due to visual problem Cervical radiculopathy 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, 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, clinical stage TIc Status post biopsies, biopsy stage TIIa [place] grade 3+3 Status post seed implant with cesium 131 as boost 12/08/2006 Status post completion of IMRT/IGRT 02/26/2007" Surgical History (Updated 12/17/23 @ 00:08 by Ger Prajapati) History of laparoscopic cholecystectomy (11/08/21) lap ish/ercp Nov 01 Chambers Status post aortic valve replacement with bioprosthetic valve H/O aortic valve repair H/O hernia repair Family History Mother Heart disease Brother Cancer Lung cancer Unknown Prostate cancer Father Prostate cancer Denies family history of Colon cancer Ovarian cancer Myocardial infarction Breast cancer Social History Smoking Status: Never smoker Tobacco Type: Cigarettes Age Started Using Tobacco: 8; Age Quit Using Tobacco: 75; packs per day: 2.5; Second Hand Exposure: No; Do You Dip or Chew Tobacco: No; Hx Alcohol Use: No Hx Substance Use: No Preferred Language: German Communication Ability: Effective Communication Ability Comment: Pt. [place] bilaterally Visual Impairment: No Limitations Hearing Ability: Use of Hearing Aid Test Lead Required: No Beliefs That Will Affect Care: None marital status: / Current Living Situation: Rehab Current Living Situation Comment: Lives at home, alone current occupational status: retired How many Children do You have: 2 Feels Safe at Home: Yes Safety Concerns: Feels Safe At This Time Childhood Exposure to Second-Hand Smoke: Yes Diet: regular Diet Comment: regular caffeine: Yes during the past year weight has: remained stable Dental Care, Regularly: No Physical Activity Frequency: Does not Exercise Seatbelt Use: never Sunscreen Use: No Do you think of yourself as: straight/heterosexual Assistive Devices: Walker and Wheelchair Review of Systems Review of Systems: See HPI above Physical Exam Physical Exam: General: no acute distress; pleasant affect; non-toxic appearing; frail appearing; cooperative HEENT: normocephalic, atraumatic; no scleral icterus; PERRLA w/ EOMs intact; vision and hearing grossly intact Neck: supple; no lymphadenopathy; trachea midline Skin: warm, dry without signs of tenting; no cyanosis; no rashes, bruising, lesions, or erythema noted CV: chest wall NTP; RRR; S1/S2 normal; no murmurs/rubs/gallops; pulses intact and symmetric at radial, DP, and PT Lungs: no acute respiratory distress; symmetrical chest wall expansion; clear breath sounds across all lung us w/o adventitious sounds; no wheezing ABD: Soft, NTP; BS present; no rebound/guarding; no distention RUE: Patient demonstrates ability to supinate and pronate the forearm, and bend the elbow without difficulty, however he does have pain when he attempts to flex/extend the right shoulder MSK: no tics or fasciculations; +2 pitting edema extending from the dorsal aspects of the feet up to the thighs (compression wrappings in place); patient demonstrates ability to wiggle toes Neuro: A&Ox3; normal mood and affect; garbled speech; no focal deficits; he reports that sensation is intact and symmetric in the upper extremities and lower extremities bilaterally Results & Data Results & Data Vital Signs (Past 12 Hours) Vital Signs Temp Pulse Resp BP Pulse Ox O2 Del Method 12/26/23 20:01 Room Air 12/26/23 19:31 75 12/26/23 19:23 98 Room Air 12/26/23 19:01 Room Air 12/26/23 19:01 36.8 C 73 16 93/75 L 98 Room Air Laboratory Results Abnormal lab results 12/26/23 Range/Units 19:29 RBC 3.44 L (4.70-6.10) M/uL Hgb 9.0 L (14.0-18.0) g/dl Hct 28.7 L (42.0-52.0) % MCHC 31.4 L (32.0-36.0) g/dL RDW Std Deviation 53.8 H (36.4-46.3) fL RDW Coeff of Yony 17.6 H (11.5-14.5) % Neut # (Auto) 7.74 H (1.40-6.50) K/uL Lymph # (Auto) 0.81 L (1.20-3.40) K/uL [place] # (Auto) 0.83 H (0.11-0.59) K/uL PT 13.2 H (9.0-12.0) Seconds INR 1.2 H (0.9-1.1) BUN 73 H (6-23) mg/dl Creatinine 2.73 H (0.6-1.4) mg/dl BUN/Creatinine Ratio 26.7 H (10-20) Glucose 107 H (70-99(Fasting)) mg/dl Magnesium 2.5 H (1.7-2.4) mg/dl Total Bilirubin 1.3 H (0.2-1.0) mg/dl AST 106 H (13-39) U/L ALT 94 H (7-52) U/L Alkaline Phosphatase 256 H (34-104) U/L Diagnostic Findings Chest X-Ray 12/26/23 19:23 XR chest 1V portable CLINICAL HISTORY: fall TECHNIQUE: Single frontal radiograph of the chest was obtained. Comparison: Comparison is made to chest radiograph 12/11/2023 FINDINGS: Lines and tubes are stable. Cardiomegaly is noted. The lungs are clear. No evidence of pleural effusion or pneumothorax. IMPRESSION: No acute chest disease. ACT 112: Negative or not required by law. Electronically signed by: Daniel Hernandez M.D. 12/26/2023 7:[address] 12/26/23 19:24 CT cervical spine wo con CLINICAL HISTORY: pain fall TECHNIQUE: Multidetector row helical CT of the cervical spine was performed without administration of intravenous contrast. Coronal and sagittal reformations were obtained. Automated dose lowering techniques and/or adjustment according to patient size were utilized for this exam. Comparison: Comparison is made to CT cervical spine 12/06/2023 FINDINGS: No acute fractures or subluxations are identified. Degenerative changes are seen in the visualized spine. The alignment is normal. Soft tissues are unremarkable. IMPRESSION: Degenerative changes without evidence of acute bony injury. ACT 112: Negative or not required by law. Electronically signed by: Daniel Hernandez M.D. 12/26/2023 8:[address] 12/26/23 19:24 CT head/brain wo con CLINICAL HISTORY: pain fall Technique: Contiguous axial CT images of the head were acquired from the base of the skull to the vertex without intravenous contrast administration. Images were viewed in brain, subdural and bone windows. Automated dose lowering techniques and/or adjustment according to patient size were utilized for this exam. Comparison: None available at the time of this dictation. Findings: Areas of decreased attenuation are present in the periventricular and subcortical white matter bilaterally consistent with small vessel ischemic disease. Generalized cerebral atrophy with commensurate enlargement of the ventricles, sulci, and cisterns is also present. There is no acute intracranial hemorrhage or evidence of acute territorial infarction. No shift of the midline structures, mass effect, or extra-axial abnormalities are shown. Atherosclerotic calcifications are present in the intracranial segments of the internal carotid arteries. Imaged portions of the paranasal sinuses and mastoid air cells are clear. The orbits appear normal. There are no acute fractures of the calvaria or scalp swelling. Impression: No acute intracranial hemorrhage, no evidence of acute territorial infarction or other acute intracranial disease process. ACT 112: Negative or not required by law. Electronically signed by: Daniel Hernandez M.D. 12/26/2023 8:03 PM ECG Additional Comments: ECG revealed AV dual paced rhythm at 76 bpm; QTc 630 (caution use of QT prolonging agents) Code Status & VTE Plan Code Status Full code (per patient and per paperwork sent over from [facility]) VTE Prophylaxis Plan VTE Prophylaxis will be ordered: Yes Supervising Physician Co-Signing Physician Notes Attending addendum: I have physically seen this patient, have supervised the SANDRA's activities, and agree with the H&P unless as otherwise noted. Assessment and Plan: Recurrent falls- Most recent fall on 12/25, out of bed, landed on his right shoulder, with subsequent pain and decreased range of motion CT of head negative CT cervical spine negative Chest x-ray normal X-ray right shoulder with possible anterior dislocation and AC joint arthritis, waiting for complete radiology interpretation Fall precautions Consult PT/OT May need orthopedic consult Transaminitis/abnormal LFTs- AST 106, ALT 94, alk phos 256 and total bilirubin 1.3 Patient denies any symptoms related, such as right upper quadrant pain, nausea Order CT scan abdomen pelvis to further assess May be secondary to rhabdomyolysis CATRACHITO/rhabdomyolysis- Creatinine 2.73, with base 1.81 CK3 31 IV fluids, LR at 80 mL/h x 1 L Recheck laboratories in a.m. HFrEF/PAF/history pacer/status post AVR- Continue metoprolol, amiodarone Temporarily hold Eliquis due to recent trauma PG Care Time/CCT Total # of Minutes Spent Total Time Spent with Patient: Total time spent is greater than 50% in coordination of care (as documented) at patient's floor/unit and/or counseling patient: C[place] [address] INT INP/OBS CARE 3/75MIN Patient Type Established Medical Decision Making High Complexity Diagnoses Recurrent falls R29.6 Transaminitis R74.01 Anemia D64.9 Anemia type: unspecified type CATRACHITO (acute kidney injury) N17.9 Rhabdomyolysis M62.82 Heart failure with mildly reduced ejection fraction I50.22 Paroxysmal atrial fibrillation I48.0 Essential hypertension I10 Hypertension type: essential hypertension S/P AVR (aortic valve replacement) Z95.2 Presence of combination internal cardiac defibrillator (ICD) and pacemaker Z95.810 (3) Anemia Anemia type: unspecified type Qualified Code(s): D64.9 - Anemia, unspecified (8) Hypertension Hypertension type: essential hypertension Qualified Code(s): I10 - Essential (primary) hypertension
[2023-12-26 21:08] LABS: Bilirubin Direct 0.7 mg/dl (0-0.2)
[2023-12-26] MEDS ORDERED: ACETAMINOPHEN 325 MG TAB PO PRN (22:18)
[2023-12-26] MEDS: LACTATED RINGER'S 1,000 ML IV SCH (22:26)
[2023-12-26 22:29] LABS: Appearance Urine Cloudy (Clear); Bacteria Urine Automated 4+ (None Seen); Bilirubin Urine Negative (Negative); Blood Urine 1+ (Negative); Cast Urine Automated >20 /lpf (0-2); Color Urine Yellow; Glucose Urine UA 1+ (Negative); Ketones Urine Negative (Negative); Leukocyte Esterase Urine 2+ (Negative); Nitrite Urine Negative (Negative); Protein Urine 1+ (Negative); RBC Urine Automated 0-2 /hpf (0-2); Specific Gravity Urine 1.013 (1.000-1.030); Urobilinogen Urine Negative (Negative); WBC Urine Automated >50 /hpf (0-5)
--- NOTE | 2023-12-27 00:19 | CT Scan Report ---
Exam(s): CT ABDOMEN + PELVIS Without Contrast EXAM: CT Abdomen and Pelvis Without Intravenous Contrast CLINICAL HISTORY: Reason for exam: confusion, elevated lfts. TECHNIQUE: Axial computed tomography images of the abdomen and pelvis without intravenous contrast. Automated exposure control was utilized for the study. A dose lowering technique was utilized adhering to the principles of ALARA. COMPARISON: CT abdomen and pelvis: 12/11/2023 FINDINGS: Lung bases: Unremarkable. No mass. No consolidation. Pleural space: There is a small dependent right basilar pleural effusion. ABDOMEN: Liver: Unremarkable. Gallbladder and bile ducts: The gallbladder has been removed. No ductal dilation. Pancreas: Unremarkable. No ductal dilation. Spleen: Unremarkable. No splenomegaly. Adrenals: Unremarkable. No mass. Kidneys and ureters: Unremarkable. No obstructing stones. No hydronephrosis. Stomach and bowel: There is a moderate stool burden. No bowel thickening or obstruction identified. No free air or abscess identified. The appendix is normal. PELVIS: Appendix: See above. Bladder: There is a 4.4 cm urinary bladder diverticula along the right posterior lateral bladder wall. No stones. Reproductive: Prostate brachytherapy implants are noted. ABDOMEN and PELVIS: Intraperitoneal space: There is a small amount of perihepatic and perisplenic free fluid/ascites. Bones/joints: No acute fracture. No dislocation. Soft tissues: There is diffuse body wall edema suggestive of anasarca. There is a stable 6.0 x 9.3 cm right lateral hip soft tissue hematoma noted within the subcutaneous fat. Vasculature: There are moderate scattered aortic and branch vessel atherosclerotic calcifications. There are advanced Aortic and coronary artery atherosclerotic calcifications. There is mild to moderate cardiomegaly. No abdominal aortic aneurysm. Lymph nodes: Unremarkable. No enlarged lymph nodes. IMPRESSION: 1. Stable right posterior lateral hip soft tissue hematoma. 2. Persistent small dependent right basilar pleural effusion. 3. There has been interval development of a small volume of perihepatic and perisplenic free fluid/ascites. No free air or abscess identified. 4. Moderate stool burden. No bowel obstruction identified. 5. Diffuse body wall edema suggestive of anasarca. 6. No definite acute intra-abdominal or pelvic inflammatory process identified. Electronically signed by: Fredy Lagos MD 12/27/23 00:18 AM
[2023-12-27] MEDS: LEVOTHYROXINE SODIUM 50 MCG TABLET PO SCH (05:51)
[2023-12-27 06:44] LABS: Basophils # (auto) 0.03 K/uL (0.00-0.20); Basophils % (auto) 0.4 %; Eosinophils % (auto) 1.4 %; Hematocrit (blood only) 28.4 % (42.0-52.0); Hemoglobin 8.9 g/dl (14.0-18.0); Immature Granulocytes # (auto) 0.02 K/uL (0.01-0.20); Immature Granulocytes % (auto) 0.3 %; Lymphocytes # (auto) 0.99 K/uL (1.20-3.40); Lymphocytes % (auto) 14.1 %; Mean Corpuscular Hemoglobin 25.8 pg (25.0-34.0); Mean Corpuscular Hgb Conc 31.3 g/dL (32.0-36.0); Mean Corpuscular Volume 82.3 fL (80.0-100.0); Mean Platelet Volume 12.5 fL (9.4-12.4); Monocytes # (auto) 0.81 K/uL (0.11-0.59); Monocytes % (auto) 11.6 %; Neutrophils # (auto) 5.06 K/uL (1.40-6.50); Neutrophils % (auto) 72.2 %; Platelet Count 171 K/uL (130-400); RDW Coefficient of Variation 17.7 % (11.5-14.5); RDW Standard Deviation 52.5 fL (36.4-46.3); Red Blood Count 3.45 M/uL (4.70-6.10); White Blood Count 7.01 K/ul (4.8-10.8)
[2023-12-27 06:55] LABS: BUN Creatinine Ratio 28.1 (10-20); Calcium 8.4 mg/dl (8.6-10.3); Creatinine Clr Calc Pharmacy 22.8 ml/min; Est GFR (Non-African American) 19.8 ml/min; Magnesium 2.4 mg/dl (1.7-2.4); Potassium 3.8 mmol/L (3.5-5.1)
--- NOTE | 2023-12-27 07:35 | XRay Report ---
XR shoulder RT min 2V routine CLINICAL HISTORY: pain fall TECHNIQUE: 3 views of the right shoulder were obtained. Comparison: Comparison is made to CT chest 12/11/2023 FINDINGS: There is no evidence of an acute fracture. Degenerative changes are seen in the glenohumeral joint. T he overlying soft tissues are unremarkable. The visualized portions of the lungs are clear. IMPRESSION: Degenerative changes without evidence of acute abnormality. ACT 112: Negative or not required by law. Electronically signed by: Daniel Hernandez M.D. 12/27/2023 7:34 AM
[2023-12-27] MEDS: buPROPion SR 150 MG TABCR PO SCH (08:16)
[2023-12-27] MEDS: GALANTAMINE HYDROBROMIDE 8 MG CAPER PO SCH (08:16)
[2023-12-27] MEDS: PANTOprazole 40 MG TAB PO SCH (08:17)
[2023-12-27] MEDS: METOPROLOL SUCC 50MG EXT REL TAB PO SCH (08:17)
[2023-12-27] MEDS: AMIODARONE 200 MG TAB PO SCH (08:17)
--- NOTE | 2023-12-27 11:46 | Hospitalist Progress Note ---
Date of Service December 27, 2023 Assessment & Plan (1) Recurrent falls: Plan: Patient presented after rolling out of bed on 12/25; landed on his right shoulder No LOC or head strike, however patient is on Eliquis (last took Eliquis the morning of 12/25) Head/cervical spine CT without acute findings CXR without acute abnormalities Right shoulder x-ray without acute fractures; ?but may exhibit an anterior dislocation No leukocytosis; afebrile; UA ordered, pending Fall precautions PT/OT evaluations appreciated Case management consulted for placement/rehab A.m. CBC, BMP, mag (2) Acute on chronic combined systolic (congestive) and diastolic (congestive) heart failure: Plan: Patient now appears clinically fluid overloaded Last echocardiogram on 08/15/2023 revealed LVEF at 40-45% BNP >1300 generalized edema on exam Will initiate IV lasix 40mg BID Monitor I/O, daily weights (3) Transaminitis: Plan: Elevated transaminases on arrival, most likely due to passive liver congestion Clinically, patient denies RUQ abdominal pain CT A/P ordered, pending (4) Anemia: Plan: Chronic; Hgb 9.0 on arrival No signs of active bleeding on clinical exam Trend H&H and continue to monitor Will hold Eliquis for 24 hours in the setting of acute trauma (5) CATRACHITO (acute kidney injury): Plan: Likely CATRACHITO on CKD No improvement with IV fluids Hopefully some improvement with diuresis (6) Rhabdomyolysis: Plan: Mild; CK elevated at 331 on arrival Hold atorvastatin IVF (as above) Recheck AM CK level (7) Heart failure with mildly reduced ejection fraction: Plan: Last echocardiogram on 08/15/2023 revealed LVEF at 40-45% Daily weights Strict I&O monitoring Heart healthy, low-sodium diet (8) Paroxysmal atrial fibrillation: Plan: Currently in AV dual paced rhythm Continue metoprolol, amiodarone (9) Hypertension: (10) S/P AVR (aortic valve replacement): (11) Presence of combination internal cardiac defibrillator (ICD) and pacemaker: Plan Disposition: continue to monitor Full code Heart healthy, low-sodium, easy to chew diet (aspiration precautions) VTE PPx: Hold Eliquis for 24 hours in the setting of anemia and acute trauma; teds Admission and Anticipated Discharge Date Admission Date: December 26, 2023 Subjective patient seen and examined, not in any distress Review of Systems Review of Systems: All systems reviewed are negative, apart from the ones contained in the history. Physical Exam Physical Exam: The patient is awake, alert and oriented 3, well developed and well nourished, normocephalic and atraumatic, lying in bed and in no acute distress. HEENT--PERRL, EOMI, mucous membranes and oropharynx mildly dry Neck--supple. No JVD. No bruits. Thyroid normal, trachea midline, no adenopathy. Heart--normal S1 and S2. No murmurs, rubs or gallops. Lungs--clear bilaterally, no respiratory distress, no accessory muscle use. Abdomen--normal bowel sounds and soft. Extremities--no cyanosis or clubbing. generalized edema. Dermatologic--normal skin turgor, normal color, no abnormal lymph nodes, no rash. Neurologic--cranial nerves II through XII grossly intact. Rheumatologic--normal range of motion. Psychiatric--normal affect. Results & Data Results & Data Vital Signs (Past 12 Hours) Vital Signs Temp Pulse Resp BP Pulse Ox O2 Del Method 12/27/23 09:14 Room Air 12/27/23 07:59 96.4 F L 75 16 107/73 99 Room Air 12/27/23 04:06 97.5 F L 68 16 106/72 96 Room Air PG Care Time/CCT Total # of Minutes Spent Total Time Spent with Patient: Total time spent is greater than 50% in coordination of care (as documented) at patient's floor/unit and/or counseling patient: Coding Level of Care Code 87732 SUB INP/OBS CARE 2/35MIN Diagnoses Recurrent falls R29.6 Acute on chronic combined systolic (congestive) and diastolic (congestive) heart failure I50.43 Transaminitis R74.01 Anemia D64.9 Anemia type: unspecified type CATRACHITO (acute kidney injury) N17.9 Rhabdomyolysis M62.82 Heart failure with mildly reduced ejection fraction I50.22 Paroxysmal atrial fibrillation I48.0 Essential hypertension I10 Hypertension type: essential hypertension S/P AVR (aortic valve replacement) Z95.2 Presence of combination internal cardiac defibrillator (ICD) and pacemaker Z95.810 Time Spent (min) 35 (4) Anemia Anemia type: unspecified type Qualified Code(s): D64.9 - Anemia, unspecified (9) Hypertension Hypertension type: essential hypertension Qualified Code(s): I10 - Essential (primary) hypertension
[2023-12-27 19:57] VITALS: PULSE 75
[2023-12-27] MEDS: FUROSEMIDE 40 MG/4 ML VIAL IV SCH (21:20)
[2023-12-28 08:07] VITALS: BP 125/87; RESP 18; TEMP 98.1; O2SAT 95
[2023-12-28 12:10] LABS: iSTAT Creatinine 2.8 mg/dl (0.6-1.3); iSTAT Hemoglobin 11.2 g/dl (14.0-18.0); iSTAT Ionized Calcium 1.11 mmol/l (1.12-1.32); iSTAT Potassium 3.8 mmol/L (3.3-5.0)
--- NOTE | 2023-12-28 13:41 | Discharge Summary ---
Date of Service December 28, 2023 Admission HPI Per Admitting Provider Kermit is a pleasant 83-year-old male with PMH of prediabetes, CAD, depression, prostate cancer, frequent falls, venous ulcers, B12 deficiency, and heart failure with mildly reduced ejection fraction. He presented from [facility] on 12/25 after sustaining a fall when he rolled out of bed onto his right shoulder. Patient is a poor historian at this time. Patient remembers falling, and does not believe he hit his head. He has no right shoulder pain at rest, but does have 5/10 pain that radiates down to his elbow with movement. When asked when he came into the hospital, he says he is not sure. He does have recurrent falls, and uses a walker/cane at baseline (walker outside, cane inside), however he is not sure how often he is falling (note on paperwork sent over from [facility], they do have an unwitnessed mechanical fall on 12/05 (. Patient denies smoking, tobacco use, recent alcohol use; former tobacco cigarette user, and he reports he used to chew tobacco. Per ED, the patient did have an episode of recent CPR, where was performed on him even though he still had a pulse. Patient is mildly hypotensive at 93/75 at time of admission; vitals otherwise stable. ED course: Acetaminophen 1000 mg IV ROS: Patient endorses lightheadedness with standing, feeling off balance, and right shoulder pain with movement. Patient denies fever, night-sweats, chest pain, SOB, abdominal pain, N/V/D, burn ing with urination, changes in urinary/bowel, or numbness/tingling in the arms. Recent [facility] admission 12/05-12/10 for fall and UTI Per review of patient records, patient was recently placed on a course of doxycycline 100 mg BID and cefdinir 300 mg BID at the beginning of December for pneumonia. He also had a urine culture growing VRE; unclear if second urine culture was drawn or patient was started on nitrofurantoin. Admission Exam (Per Admitting) Constitutional The patient is awake, alert and oriented 3, well developed and well nourished, normocephalic and atraumatic, lying in bed and in no acute distress. HEENT--PERRL, EOMI, mucous membranes and oropharynx mildly dry Neck--supple. No JVD. No bruits. Thyroid normal, trachea midline, no adenopathy. Heart--normal S1 and S2. No murmurs, rubs or gallops. Lungs--clear bilaterally, no respiratory distress, no accessory muscle use. Abdomen--normal bowel sounds and soft. Extremities--no cyanosis or clubbing. No edema. Dermatologic--normal skin turgor, normal color, no abnormal lymph nodes, no rash. Neurologic--cranial nerves II through XII grossly intact. Rheumatologic--normal range of motion. Psychiatric--normal affect. Discharge Data Consultations 12/26/23 21:01 ED Decision to Admit Stat Hospital Course (1) Recurrent falls: Patient presented after rolling out of bed on 12/25; landed on his right shoulder No LOC or head strike, however patient is on Eliquis (last took Eliquis the morning of 12/25) Head/cervical spine CT without acute findings CXR without acute abnormalities Right shoulder x-ray without acute fractures; ?but may exhibit an anterior dislocation No leukocytosis; afebrile; UA ordered, pending Fall precautions PT/OT evaluations appreciated Case management consulted for placement/rehab A.m. CBC, BMP, mag (2) Transaminitis: Elevated transaminases on arrival Clinically, patient denies RUQ abdominal pain CT A/P ordered, pending (3) Anemia: Chronic; Hgb 9.0 on arrival No signs of active bleeding on clinical exam Trend H&H and continue to monitor Will hold Eliquis for 24 hours in the setting of acute trauma (4) CATRACHITO (acute kidney injury): BUN 73, creatinine 2.73 (baseline 1.8), EGFR 20.3 Avoid nephrotoxic agents where possible IVF resuscitation with LR at 80mL/hr x 1 L Trending down (5) Rhabdomyolysis: resolved (6) Heart failure with mildly reduced ejection fraction: Last echocardiogram on 08/15/2023 revealed LVEF at 40-45% Daily weights Strict I&O monitoring Heart healthy, low-sodium diet (7) Paroxysmal atrial fibrillation: Currently in AV dual paced rhythm Continue metoprolol, amiodarone (8) Metabolic encephalopathy: some worsening confusion, likely hospital delirium (9) Hypertension: (10) S/P AVR (aortic valve replacement): (11) Presence of combination internal cardiac defibrillator (ICD) and pacemaker: (12) Stage 4 chronic kidney disease: Plan Disposition: d/c to snf Full code Heart healthy, low-sodium, easy to chew diet (aspiration precautions) VTE PPx: Hold Eliquis for 24 hours in the setting of anemia and acute trauma; teds Coding Level of Care Code 51081 INP/OBS DISCH >30 MIN Diagnoses Recurrent falls R29.6 Transaminitis R74.01 Anemia D64.9 Anemia type: unspecified type CATRACHITO (acute kidney injury) N17.9 Rhabdomyolysis M62.82 Heart failure with mildly reduced ejection fraction I50.22 Paroxysmal atrial fibrillation I48.0 Metabolic encephalopathy G93.41 Essential hypertension I10 Hypertension type: essential hypertension S/P AVR (aortic valve replacement) Z95.2 Presence of combination internal cardiac defibrillator (ICD) and pacemaker Z95.810 Stage 4 chronic kidney disease N18.4 Time Spent (min) 35
--- NOTE | 2023-12-29 05:43 | Electrocardiogram Report ---
Test Reason : Blood Pressure : */* mmHG Vent. Rate : 76 BPM Atrial Rate : 76 BPM P-R Int : 124 ms QRS Dur : 166 ms QT Int : 560 ms P-R-T Axes : * 265 107 degrees QTcB Int : 630 ms AV dual-paced rhythm Abnormal ECG When compared with ECG of 11-Dec-2023 07:48, Vent. rate has increased by 2 bpm Confirmed by Denny Lott ([id number]) on 12/29/2023 5:43:07 AM Referred By: Confirmed By: Denny Lott
== END 2023-12-28 15:09 | DRG 682 ==
LOC: ED 19:09 → 2N 21:20 → SUATTDRO 21:20 → 2N 22:03